=== PATIENT | female | born 1960 | race Caucasian/White ===

== ENCOUNTER 2019-04-10 12:09 | Inpatient (IN) | payer BC ==
[~2019-04-10] VITALS: Ht 170.2 cm; Wt 56.0 kg
[2019-04-10] VITALS (11 sets, daily range): BP systolic 98–175; BP diastolic 58–121
[~2019-04-10 12:09] MED LIST: ATROPINE 1 MG/10 ML DISP.SYRINGE. ONE; CALCIUM CHLORIDE 1,000 MG/10 ML VIAL IV ONE
[2019-04-10] MEDS ORDERED: IV NORMAL SALINE 1000ML BAG 1,000 ML IV SCH (12:13)
[2019-04-10] MEDS ORDERED: NOREPINEPHRINE VIAL 8 MG in IV DEXTROSE 5% 250 ML IV ONE (12:30)
[2019-04-10 12:38] LABS: CREATININE ISTAT 1.1 mg/dL (0.5-1.4); ION CA ISTAT 1.22 mmol/L (1.13-1.32); POTASSIUM ISTAT 3.4 mmol/L (3.5-5.0)
[2019-04-10] MEDS ORDERED: ATROPINE 1 MG/10 ML DISP.SYRINGE. IV ONE (12:42)
[2019-04-10 12:45] LABS: BASO % 0 % (0-3); EOS % 0 % (0-3); HEMATOCRIT 45.9 % (36.0-47.0); LYMPH # 4.4 x10^3/uL (1.0-4.8); LYMPH % 50 % (24-48); MEAN CORPUSCULAR HEMOGLOBIN 30 pg (25-35); MEAN CORPUSCULAR HGB CONC 33 g/dL (31-37); MEAN CORPUSCULAR VOLUME 92 fL (79-100); MONO # 0.2 x10^3/uL (0.0-1.1); MONO % 2 % (0-9); NEUT # 4.1 x10^3/uL (1.8-7.7); NEUT % 47 % (31-73); PLATELET COUNT 176 x10^3/uL (140-400); RED BLOOD COUNT 5.01 x10^6/uL (3.50-5.40); RED CELL DISTRIBUTION WIDTH 12.9 % (11.5-14.5); WHITE BLOOD COUNT 8.7 x10^3/uL (4.0-11.0)
[2019-04-10] MEDS ORDERED: AMIODARONE 450 MG in IV DEXTROSE 5% 250 ML IV ONE (12:45)
--- NOTE | 2019-04-10 12:52 | RAD ---
EXAM: Chest, single view. HISTORY: CODE BLUE. COMPARISON: None. FINDINGS: A frontal view of the chest is obtained. There is an endotracheal tube within the mid trachea. There is a nasogastric tube within the stomach. There is diffuse increased interstitial opacity. There is no consolidated, pleural effusion or pneumothorax. The heart is normal in size. IMPRESSION: 1. Diffuse increased interstitial opacities interstitial infiltrate. 2. Support lines and tubes in expected position. Electronically signed by: Elenita Kirkpatrick MD (04/10/2019 12:49 PM) [place] [id number]
--- NOTE | 2019-04-10 12:54 | EKG ---
[facility] [address] [place] [address] Test Date: 2019-04-10 Test Time: 12:11:15 Pat Name: EMIL ORGAN Department: Room: Gender: F Compensation And Benefits Manager: : 1960 Requested By: NORMA REVELES Order Number: [id number] Reading MD: Measurements Intervals [place] Rate: 82 P: TN: QRS: 116 QRSD: 158 T: -34 QT: 404 QTc: 475 Interpretive Statements IRREGULAR RHYTHM, NO P-WAVE FOUND ABNORMAL RIGHT AXIS DEVIATION NON SPECIFIC INTRAVENTRICULAR BLOCK RVH WITH REPOLARIZATION ABNORMALITY ABNORMAL ECG RI6.01 No previous ECG available for comparison
[2019-04-10 13:02] LABS: CALCIUM 9.4 mg/dL (8.5-10.1); CREATININE 1.2 mg/dL (0.6-1.0); GFR 45.8; POTASSIUM 3.6 mmol/L (3.5-5.1)
[2019-04-10 13:06] LABS: BASE EXCESS ABG -14 mmol/L (-3-3); HCO3 ABG 14 mmol/L (21-28); PCO2 ABG 38 mmHg (35-46); PO2 ABG 103 mmHg (65-108); SAT O2 ABG 96 % (92-99)
[2019-04-10 13:07] LABS: ALBUMIN 3.4 g/dL (3.4-5.0); MAGNESIUM 2.5 mg/dL (1.8-2.4); TOTAL BILIRUBIN 0.4 mg/dL (0.2-1.0); TOTAL PROTEIN 6.8 g/dL (6.4-8.2)
[2019-04-10 13:10] LABS: FIO2 ABG 100
--- NOTE | 2019-04-10 13:12 | PDOC2 ---
JUAN J GONZALEZ EQUIPMENT STERILIZER 04/10/19 1312: CARDIAC CONSULT DATE OF CONSULT Date of Consult DATE: 04/10/19 TIME: 12:45 REASON FOR CONSULT Reason for Consult: VT arrest REFERRING PHYSICIAN Referring Physician: Debbie SOURCE Source: Caregiver (spouse, friend), Chart review HISTORY OF PRESENT ILLNESS HISTORY OF PRESENT ILLNESS This is a a 58 yo female admitted for out of hospital arrest. Pt was in [place] with her friend this morning and was doing well. They then went to [employer] and bend over and tried to put the dog food under the cart and told her friend she felt dizzy and then became unresponsive. No falls. She then stopped breathing and a bystander started CPR then EMS came and noted she has VT. SHe wa s then given approximately 3 mg of epi and was defibrillated. Approximately 8 min to ROSC. No hx of CAD or arrhythmias and no past cardiac workup and has not seen pool lifeguard in the past. Discussed details with spouse as far as her medical history. No reports of any recent syncopal spells, no cardiac symptoms. Pt works out about 3x weekly without difficulty doing pilates, aerobic exercises. She takes 2 BP meds and 1 cholesterol pill. 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 She actually workout yesteday for the first time since 2 weeks ago. She has not worked out for about 2 weeks due to sinus infection which got better with antibiotics. PAST MEDICAL HISTORY Cardiovascular: HTN, Hyperlipidemia Pulmonary: No pertinent hx CENTRAL NERVOUS SYSTEM: Other (No pertinent history) GI: No pertinent hx Heme/Onc: No pertinent hx Hepatobiliary: No pertinent hx Psych: No pertinent hx Musculoskeletal: Osteoarthritis Rheumatologic: No pertinent hx Infectious disease: No pertinent hx ENT: Sincusitis Renal/: No pertinent hx Endocrine: No pertinent hx Dermatology: No pertinent hx PAST SURGICAL HISTORY Past Surgical History: Appendectomy, Hysterectomy FAMILY HISTORY Family History: Coronary Artery Disease (mother and father) SOCIAL HISTORY Smoke: No ALCOHOL: none Drugs: None Lives: with Family ALLERGIES ALLERGIES: Coded Allergies: No Known Drug Allergies (Unverified , 04/10/19) ROS Review of System unreliable PHYSICAL EXAM General: Other (intubated) HEENT: Atraumatic, Mucous membr. moist/pink Lungs: Other (intubated with vent) Heart: Other (RBBB, accelerated junctional) Abdomen: Soft Extremities: No cyanosis, No edema Psych/Mental Status: Other (intubated) MUSCULOSKELETAL: Osteoarthritic changes both hands LABS Lab: Laboratory Tests Test 04/10/19 12:26 04/10/19 12:31 04/10/19 12:35 Glucose (Fingerstick) 269 mg/dL (70-99) H POC Troponin I 0.37 ng/ml (<0.08) POC Hemoglobin 16.0 g/dL (12-15) H POC Hematocrit 47 % (36-40) H POC Sodium 139 mmol/L (135-145) POC Potassium 3.4 mmol/L (3.5-5.0) L POC Chloride 106 mmol/L (98-110) POC Total CO2 22 mmol/L (23-32) L Anion Gap 14 mmol/L (6-14) POC Blood Urea Nitrogen 21 mg/dL (8-26) POC Creatinine 1.1 mg/dL (0.5-1.4) Glucose Level 288 mg/dL (70-99) H POC Ionized Calcium (Kayleigh) 1.22 mmol/L (1.13-1.32) Laboratory Tests 04/10/19 12:35 ASSESSMENT/PLAN ASSESSMENT/PLAN 1. OOH VT arrest: approximately 8 min to ROSC 3 rounds of epi with defibrillation by EMS 2. Bradyarrhythmia: 30-40 episodes, QTc 475. EKG RBBB junctional otherwise ST-T changes suspicious of LM anomaly 3. Acute respiratory failure: intubated with vent 4. Syncope: due to arrhythmia 5. HLP Recommendations 1. Discussed with spouse. urgent LHC, risks and benefits discussed and agreeable to proceed. 2. Amiodarone if HR is stable. Levophed. Atropine as warranted. Epi drip if continues to be kevin 3. ASA. Heparin drip when CT head is noted. 4. Will obtain VT strips by the EMS MATTHEW SPAIN MD 04/10/19 5864: CARDIAC CONSULT ASSESSMENT/PLAN ASSESSMENT/PLAN Patient seen and examined. Agree with ROLL COATING MACHINE OPERATOR's assessment and plan. Patient with out of hospital cardiac arrest secondary to VT/VF s/p successful defibrillation by EMS Patient keeps having bradycardic episodes and is currently being transcutaneously paced as needed We will proceed with emergent cardiac catheterization and possible angioplasty Risks and benefits were explained to patient's family and they're agreeable Continue amiodarone infusion for antiarrhythmic therapy Continue vent management per pulmonary team Thank you for your consultation Critical care time spent evaluating patient and talking to family etc 40 mins JUAN J GONZALEZ APRN Apr 10, 2019 13:12 MATTHEW SPAIN MD Apr 10, 2019 17:34
[2019-04-10] MEDS ORDERED: ETOMIDATE 20 MG/10 ML VIAL. IV ONE (13:14)
[2019-04-10] MEDS ORDERED: MIDAZOLAM HCL/PF 5 MG/5 ML VIAL. IV ONE (13:15)
[2019-04-10] MEDS ORDERED: POTASSIUM CHLORIDE 20MEQ 100 ML IV ONE (13:15)
[2019-04-10] MEDS ORDERED: SUCCINYLCHOLINE 200 MG/10 ML VIAL. ONE (13:15)
[2019-04-10] MEDS ORDERED: MIDAZOLAM HCL/PF 5 MG/5 ML VIAL. ONE (13:15)
[2019-04-10] MEDS ORDERED: MIDAZOLAM HCL 50 MG in IV NORMAL SALINE 50ML 50 ML IV ONE (13:15)
[2019-04-10 13:20] LABS: PROTHROMBIN TIME PATIENT 18.8 SEC (11.7-14.0)
[2019-04-10] MEDS: IV NORMAL SALINE 1000ML BAG 1,000 ML IV SCH ×2 (13:28→20:08)
--- NOTE | 2019-04-10 13:28 | PHYS DOC ---
Past Medical History Past Medical History: Arthritis, Hyperthyroid Adult General Chief Complaint Chief Complaint: CPR/FULL ARREST HPI HPI Patient is a 58 year old female with history of hypertension and arthritis who presents to EMS with cardiorespiratory arrest. Patient friend states they did go to [employer] this morning and then went to [employer]. Patient ran to the parking lot to get her [place] and when returned inside complaining of dizziness and became unresponsive without a fall. After 5-6 minutes patient stopped bleeding and EMS was called and arrived to the scene after 2 minutes. She had ventricular tachycardia and shocked and didn't had ventricular fibrillation and shocked at another time. Patient had CPR with chest compression and insertion of LMA. Patient had dose of epinephrine and after about a week's had spontaneous pulse and breathing. According to her Review of Systems Review of Systems Unable to obtain because of unresponsiveness. Current Medications Current Medications Current Medications Medications (Trade) Dose Ordered Sig/Tank Start Time Stop Time Status Last Admin Dose Admin Norepinephrine Bitartrate 8 mg/ Dextrose 258 ml @ 13.855 mls/ hr 1X ONCE 04/10/19 12:30 04/10/19 12:31 DC 04/10/19 12:40 9.375 MLS/HR Sodium Chloride 1,000 ml @ 1,000 mls/hr Q1H 04/10/19 12:13 04/10/19 13:12 DC 04/10/19 12:20 1,000 MLS/HR Physical Exam Physical Exam Constitutional: Well nourished, unresponsive HENT: Normocephalic, atraumatic. Eyes: Fixed and dilated pupils Neck:No stridor. [] Cardiovascular: Tachycardia Lungs & Thorax: Spontaneous breathing with rhonchi and rales Abdomen: Atraumatic Skin: Clammy and diaphoretic Extremities: Peripheral pulses present ,no edema. [] Neurologic: Unresponsive Psych: Unable to evaluate Current Patient Data Vital Signs Vital Signs Date Time Temp Pulse Resp B/P (MAP) Pulse Ox O2 Delivery O2 Flow Rate FiO2 04/10/19 12:38 46 20 95/54 (68) 100 Ventilator 04/10/19 12:09 100.2 100.2 Lab Values Laboratory Tests Test 04/10/19 12:20 04/10/19 12:26 04/10/19 12:31 04/10/19 12:35 White Blood Count 8.7 x10^3/uL (4.0-11.0) Red Blood Count 5.01 x10^6/uL (3.50-5.40) Hemoglobin 15.0 g/dL (12.0-15.5) Hematocrit 45.9 % (36.0-47.0) Mean Corpuscular Volume 92 fL (79-100) Mean Corpuscular Hemoglobin 30 pg (25-35) Mean Corpuscular Hemoglobin Concent 33 g/dL (31-37) Red Cell Distribution Width 12.9 % (11.5-14.5) Platelet Count 176 x10^3/uL (140-400) Neutrophils (%) (Auto) 47 % (31-73) Lymphocytes (%) (Auto) 50 % (24-48) H Monocytes (%) (Auto) 2 % (0-9) Eosinophils (%) (Auto) 0 % (0-3) Basophils (%) (Auto) 0 % (0-3) Neutrophils # (Auto) 4.1 x10^3/uL (1.8-7.7) Lymphocytes # (Auto) 4.4 x10^3/uL (1.0-4.8) Monocytes # (Auto) 0.2 x10^3/uL (0.0-1.1) Eosinophils # (Auto) 0.0 x10^3/uL (0.0-0.7) Basophils # (Auto) 0.0 x10^3/uL (0.0-0.2) Segmented Neutrophils % 40 % (35-66) Band Neutrophils % 2 % (0-9) Lymphocytes % 54 % (24-48) H Monocytes % 3 % (0-10) Eosinophils % 1 % (0-5) Platelet Estimate Adequate (ADEQUATE) Platelet Clumps, EDTA Present Sodium Level 140 mmol/L (136-145) Potassium Level 3.6 mmol/L (3.5-5.1) Chloride Level 103 mmol/L (98-107) Carbon Dioxide Level 20 mmol/L (21-32) L Anion Gap 17 (6-14) H 14 mmol/L (6-14) Blood Urea Nitrogen 19 mg/dL (7-20) Creatinine 1.2 mg/dL (0.6-1.0) H Estimated GFR (Cockcroft-Gault) 45.8 BUN/Creatinine Ratio 16 (6-20) Glucose Level 300 mg/dL (70-99) H 288 mg/dL (70-99) H Lactic Acid Level 9.0 mmol/L (0.4-2.0) *H Calcium Level 9.4 mg/dL (8.5-10.1) Magnesium Level 2.5 mg/dL (1.8-2.4) H Total Bilirubin 0.4 mg/dL (0.2-1.0) Aspartate Amino Transferase (AST) 128 U/L (15-37) H Alanine Aminotransferase (ALT) 135 U/L (14-59) H Alkaline Phosphatase 83 U/L (46-116) Creatine Kinase 194 U/L (26-192) H Troponin I Quantitative 0.633 ng/mL (0.000-0.055) FJ-Qsq-R-Type Natriuretic Peptide 409 pg/mL (0-124) H Total Protein 6.8 g/dL (6.4-8.2) Albumin 3.4 g/dL (3.4-5.0) Albumin/Globulin Ratio 1.0 (1.0-1.7) Triglycerides Level 83 mg/dL (0-150) Cholesterol Level 168 mg/dL (0-200) LDL Cholesterol, Calculated 92 mg/dL (0-100) VLDL Cholesterol, Calculated 17 mg/dL (0-40) Non-HDL Cholesterol Calculated 109 mg/dL (0-129) HDL Cholesterol 59 mg/dL (40-60) Cholesterol/HDL Ratio 2.8 Lipase 534 U/L (73-393) H Thyroid Stimulating Hormone (TSH) 3.367 uIU/mL (0.358-3.74) Glucose (Fingerstick) 269 mg/dL (70-99) H POC Troponin I 0.37 ng/ml (<0.08) POC Hemoglobin 16.0 g/dL (12-15) H POC Hematocrit 47 % (36-40) H POC Sodium 139 mmol/L (135-145) POC Potassium 3.4 mmol/L (3.5-5.0) L POC Chloride 106 mmol/L (98-110) POC Total CO2 22 mmol/L (23-32) L POC Blood Urea Nitrogen 21 mg/dL (8-26) POC Creatinine 1.1 mg/dL (0.5-1.4) POC Ionized Calcium (Kayleigh) 1.22 mmol/L (1.13-1.32) Laboratory Tests 04/10/19 12:20 Laboratory Tests 04/10/19 12:20 04/10/19 12:35 EKG EKG EKG interpreted by me. EKG at 12 elevate showed irregular rhythm at rate of 82, normal P-wave phoned, abnormal right axis deviation, nonspecific intraventricular block, LVH with repolarization abnormality, diffuse inverted T and 30 ER and inferior dates, no acute ST elevation. EKG at 1246 showed irregular rhythm at rate of 59, no P-wave phoned, left axis deviation, left anterior fascicular block, nonspecific intraventricular block, diffuse with repolarization, elevated T wave in anteroseptal leads, no acute ST elevation. Radiology/Procedures Radiology/Procedures [][address] [address] IMAGING REPORT Signed PATIENT: EMIL TENA ACCOUNT: [id number] : 1960 LOCATION: ER AGE: 58 SEX: F EXAM STATUS: REG ER ORD. PHYSICIAN: NORMA REVELES MD REASON: post code blue PROCEDURE: PORTABLE CHEST 1V EXAM: Chest, single view. HISTORY: CODE BLUE. COMPARISON: None. FINDINGS: A frontal view of the chest is obtained. There is an endotracheal tube within the mid trachea. There is a nasogastric tube within the stomach. There is diffuse increased interstitial opacity. There is no consolidated, pleural effusion or pneumothorax. The heart is normal in size. IMPRESSION: 1. Diffuse increased interstitial opacities interstitial infiltrate. 2. Support lines and tubes in expected position. Electronically signed by: Elenita Ashford MD (04/10/2019 12:49 PM) [facility] DICTATED and SIGNED BY: ELENITA ASHFORD MD DATE: 04/10/19 [address] [place] [id number] [place] [address] IMAGING REPORT Signed PATIENT: EMIL TENA ACCOUNT: [id number] : 1960 LOCATION: [address] [place] [address] AGE: 58 SEX: F EXAM STATUS: ADM IN ORD. PHYSICIAN: NORMA REVELES MD REASON: post code blue, PT BEING PACED, MOTION PROCEDURE: CT HEAD WO CONTRAST CT scan of the head without contrast 04/10/2019 Clinical History: Post cardiac arrest. Technique: Unenhanced, contiguous, 5 mm axial sections were obtained through the head. One or more of the following individualized dose reduction techniques were utilized for this study: 1. Automated exposure control. 2. Adjustment of the mA and/or kV according to patient size. 3. Use of iterative reconstruction technique. Findings: No previous imaging studies are available for comparison. Some of the images are degraded by patient motion. The ventricles and sulci are within normal limits in size and configuration. No acute parenchymal abnormality is seen. No extra-axial fluid collection is noted. No skull fracture is seen. Impression: No acute intracranial abnormality is seen. Electronically signed by: Rose Mary Zepeda MD (04/10/2019 1:34 PM) [facility] DICTATED and SIGNED BY: ROSE MARY ZEPEDA MD DATE: 04/10/19 1336 Course & Med Decision Making Course & Med Decision Making Pertinent Labs and Imaging studies reviewed. (See chart for details) Dilution of patient in ER showed 58-year-old female patient brought in by EMS after code blue with spontaneous pulse and respiration with GCS-3 with unresponsive condition. Patient was intubated at 1225. Cardiology was consulted at 1211. Patient had blood pressure of 80s over 40s and IV fluids and Levophed and amiodarone was started. Patient had unremarkable CT head. Chest x-ray showed infiltration and lactic acid was 9.0 and antibiotic was started. Cardiology team took the patient to the Candy Maker Helper.Patient requiring admission for further evaluation and treatment. Discussed with Dr. De Souza who is in agreement with admission. Discussed findings and plan with patient and family, who acknowledge understanding and agreement. Dragon Disclaimer Dragon Disclaimer This electronic medical record was generated, in whole or in part, using a voice recognition dictation system. Departure Departure Impression: Primary Impression: Cardiorespiratory arrest Additional Impressions: Sepsis Severe sepsis Elevated d-dimer Hyperglycemia Acute respiratory acidosis Pneumonia Hypokalemia Elevated troponin NSTEMI (non-ST elevated myocardial infarction) Disposition: 09 ADMITTED INPATIENT (at 1327) Admitting Physician: BHAVANA (Dr. De Souza accepted admission at 1326) Condition: CRITICAL Referrals: ALEXANDER OSBORNE MD (PCP) Critical Care Time Critical care time was 90 minutes exclusive of procedures. Date and Time of Reassessment Date: Apr 10, 2019 Time: 14:00 Fluid Challenge Is the fluid challenge complet: Yes IBW Target Volume Used: Yes BMI > 30: No Vital Signs Vital Signs: Vital Signs Date Time Temp Pulse Resp B/P (MAP) Pulse Ox O2 Delivery O2 Flow Rate FiO2 04/10/19 12:38 46 20 95/54 (68) 100 Ventilator 04/10/19 12:09 100.2 100.2 Temperature Source: Rectal Respirations Respiratory Pattern: Irregular Cardiovascular Pulse Rhythm: Irregular Heart: Nml S1, S2, no murmurs Capillary Refil Capillary Refill: Rt Hand < 3 seconds Peripheral Pulse Pulse Location: Radial Pulse Strength: Normal (2+) Pulse Assessment Method: NIBP Integumentary Skin: Diaphoretic Skin Moisture: Clammy Intubation Procedure Intubation Procedure Intub Indication: Respiratory failure Consent: Unable to give consent due to emergent nature. Medications Used: see nursing note Procedure: The patient was placed in the appropriate position. Intubation was performed direct visualization of cord [id number] with 7.5 endotracheal tube with x 1 try. T tube was secured with device. Initial confirmation of placement included bilateral breath sounds, tube fogging, adequate chest rise, adequate pulse oximetry reading. A chest x-ray to verify correct placement of the tube showed appropriate tube position. The patient tolerated the procedure well. Complications: none. Problem Qualifiers Additional Impressions: Sepsis Sepsis type: sepsis due to unspecified organism Sepsis acute organ dysfunction status: unspecified Qualified Codes: A41.9 - Sepsis, unspecified organism Pneumonia Pneumonia type: due to unspecified organism Laterality: left Lung location: unspecified part of lung Qualified Codes: J18.9 - Pneumonia, unspecified organism NORMA REVELES MD Apr 10, 2019 13:28
[2019-04-10] MEDS ORDERED: SODIUM BICARB ADULT 8.4% 50 MEQ/50 ML DISP.SYRIN. IV ONE (13:30)
[2019-04-10 13:31] LABS: CHOLESTEROL/HDL RATIO 2.8
[2019-04-10 13:34] LABS: % BANDS 2 % (0-9); % EOS 1 % (0-5); % LYMPHS 54 % (24-48); % MONOS 3 % (0-10); % SEGS 40 % (35-66); PLATELET CLUMP PRESENT; PLT ESTIMATE ADEQUATE (ADEQUATE)
--- NOTE | 2019-04-10 13:37 | RAD ---
CT scan of the head without contrast 04/10/2019 Clinical History: Post cardiac arrest. Technique: Unenhanced, contiguous, 5 mm axial sections were obtained through the head. One or more of the following individualized dose reduction techniques were utilized for this study: 1. Automated exposure control. 2. Adjustment of the mA and/or kV according to patient size. 3. Use of iterative reconstruction technique. Findings: No previous imaging studies are available for comparison. Some of the images are degraded by patient motion. The ventricles and sulci are within normal limits in size and configuration. No acute parenchymal abnormality is seen. No extra-axial fluid collection is noted. No skull fracture is seen. Impression: No acute intracranial abnormality is seen. Electronically signed by: Issa Zepeda MD (04/10/2019 1:34 PM) [facility]
[2019-04-10] MEDS ORDERED: IV NORMAL SALINE 1000ML BAG 1,000 ML IV ONE (13:45)
[2019-04-10] MEDS ORDERED: PIPERACILLIN/TAZOBACTAM 3.375 GM in IV NORMAL SALINE 50ML 50 ML IV ONE (13:45)
[2019-04-10] MEDS ORDERED: VANCOMYCIN 1GM IVPB FOR OMNI 250 ML IV ONE (13:45)
[2019-04-10 13:55] LABS: D-DIMER > 20.00 ug/mlFEU (0.00-0.50)
[2019-04-10] MEDS: POTASSIUM CHLORIDE 10MEQ 100 ML IV SCH ×2 (14:00→15:00)
[2019-04-10] MEDS ORDERED: VANCOMYCIN 1.75 GM in IV NORMAL SALINE 500ML BAG 500 ML IV ONE (14:00)
[2019-04-10] MEDS ORDERED: IODIXANOL 320 MG/ML 100 ML VIAL. ONE (14:01)
[2019-04-10] MEDS ORDERED: LIDOCAINE 1% PF 2 ML VIAL. ONE (14:02)
[2019-04-10] MEDS ORDERED: LIDOCAINE 1% Multi-Dose 20 ML VIAL. ONE (14:03)
--- NOTE | 2019-04-10 14:08 | EKG ---
[facility] [address] [place] [address] Test Date: 2019-04-10 Test Time: 12:45:20 Pat Name: EMIL ORGAN Department: Room: 106 1 Gender: F Circulator: : 1960 Requested By: MADDI QUINTEROS Order Number: [id number] Reading MD: Measurements Intervals [place] Rate: 59 P: NE: QRS: -60 QRSD: 134 T: 79 QT: 498 QTc: 498 Interpretive Statements IRREGULAR RHYTHM, NO P-WAVE FOUND ABNORMAL LEFT AXIS DEVIATION LEFT ANTERIOR FASCICULAR BLOCK NON SPECIFIC INTRAVENTRICULAR BLOCK RVH WITH REPOLARIZATION ABNORMALITY QRS(T) CONTOUR ABNORMALITY CONSISTENT WITH ANTEROSEPTAL INFARCT AGE UNDETERMINED ABNORMAL ECG RI6.01 No previous ECG available for comparison
[2019-04-10 14:39] LABS: INFLUENZA A PATIENT NEGATIVE (NEGATIVE); INFLUENZA B PATIENT NEGATIVE (NEGATIVE)
[2019-04-10] MEDS ORDERED: ATROPINE 1 MG/10 ML DISP.SYRINGE. ONE (15:16)
[2019-04-10] MEDS ORDERED: HEPARIN for IV BOLUS 10,000 UNIT/10 ML VIAL. ONE (15:16)
[2019-04-10] MEDS ORDERED: IODIXANOL 320 MG/ML 100 ML VIAL. IART ONE (15:30)
[2019-04-10] MEDS ORDERED: HEPARIN for IV BOLUS 10,000 UNIT/10 ML VIAL. IV ONE (15:30)
[2019-04-10] MEDS ORDERED: LIDOCAINE 1% Multi-Dose 20 ML VIAL. INJ ONE (15:30)
[2019-04-10] MEDS ORDERED: VECURONIUM BOLUS 10 MG VIAL. IV ONE (16:54)
[2019-04-10] MEDS ORDERED: fentaNYL PF VIAL 100 MCG/2 ML VIAL ONE (16:55)
[2019-04-10] MEDS ORDERED: fentaNYL PF VIAL 100 MCG/2 ML VIAL IV ONE (17:00)
[2019-04-10] MEDS ORDERED: MIDAZOLAM HCL/PF 2 MG/2 ML VIAL. IV ONE (17:00)
[2019-04-10] MEDS ORDERED: POLYVINYL ALCOHOL 1.4% OPHTH SOLUTION 15ML BOTTLE. OU PRN (17:00)
--- NOTE | 2019-04-10 17:10 | CARD ---
MR#: [id number] Date of Study: 04/10/2019 Ordering Physician: MATTHEW TERAN, Referring Physician: MATTHEW TERAN, Tech: RT Rosalba (Popeye) [place] APPROVED REPORT Technologist: RT Rosalba (R) [place] Nurse: Christi Yadav R.N. Procedure(s) performed: 1. Left heart catheterization, selective coronary angiography and left ventr iculography 2. Instant wave free ratio (IFR) measurement to right coronary artery stenosis contrast 104 Visipaque flouro time 4.8 minutes dose 24.6 Gycm2 no sedation INDICATION The indication(s) include : Sudden cardiac arrest arrest secondary to ventricular tachycardia. CS Clinical Frailty Scale [facility] Clinical Frailty Scale: Moderately Frail Heart Failure Heart Failure: No PROCEDURE NARRATIVE After explaining the risks, benefits and alternative options, informed consent was obtained from jessica ent's family since she was intubated. Patient was brought to the cardiac Thermal Cutting Tracer Machine Operator and her right groin was prepped and draped in the usual fashion. 20 mL of 2% lidocaine was infiltrated into the skin and subcutaneous tissues for local anesthesia. Arterial access was obtained in the right common femoral artery and a 6 [place] sheath was inserted. Since patient needed temporary transcutaneous pacing in e emergency room, a 5 [place] venous sheath was inserted in the right common femoral vein for potentia l transvenous pacemaker insertion if she became bradycardic. 6 [place] JL4 and 6 [place] JR4 catheters were used to perform selective angiography of the left and right coronary arteries. 6 [place] pigtail catheter was used to perform left ventriculography. Since she was found to have angiographically bord lobo significant stenosis involving her right coronary artery, a decision was made to perform physi ologic assessment using Instant wave free ratio (IFR) measurement. 6 [place] JR4 guide was used to en joey the right coronary artery. The stenosis in the midsegment was crossed with [place] Verrata Pres sureWire and IFR measurement was made that was insignificant at 1.0. Hence no interventions were perf ormed. Patient tolerated the procedure well. Hemostasis in the right groin was achieved using mynx cl osure device and manual compression. There were no immediate complications. FINDINGS 1. Hemodynamics: Left ventricular end-diastolic pressure 5 mmHg. No pullback gradient across the ao rtic valve. 2. Left ventriculography: Normal left ventricle systolic function with ejection fraction estimated at 55%. No significant mitral regurgitation seen. 3. Coronary angiography: a. The left main coronary artery arose from the left sinus of Valsalva, gave rise to the left anteri or descending and left circumflex arteries and did not show any significant stenosis. b. The left anterior descending artery showed 30% stenosis in the midsegment. The diagonal branch sh owed 50% stenosis in the proximal segment. c. The left circumflex artery did not show any significant stenosis. d. The right coronary artery was a large and dominant vessel arising from the right sinus of Valsalv a that showed 50% stenosis in the midsegment. This was physiologically insignificant based on IFR celine surement of 1.0. Conclusion 1. Nonobstructive coronary artery disease. 50% stenosis involving dominant right coronary artery mary carmen t was physiologically not significant based on IFR measurement. The diagonal branch which is a small to medium caliber vessel also showed 50% proximal segment stenosis. 2. Normal left ventricle systolic function with ejection fraction estimated at 55%. Recommendations Consider AICD implantation for secondary prevention of sudden cardiac if workup for pulmonary e mbolism as negative Signed by : Matthew Teran, Electronically Approved : 04/10/2019 17:09:16
[2019-04-10] MEDS: ACETAMINOPHEN 650 MG/20.3 ML SOLUTION. NG SCH ×2 (17:19→22:03)
[2019-04-10] MEDS: busPIRone 10 MG TABLET. NG SCH ×2 (17:19→21:58)
[2019-04-10] MEDS ORDERED: HEPARIN 25,000UTS/250ML PREMIX 250 ML IV PRN ×2 (17:30→23:45)
[2019-04-10] MEDS ORDERED: HEPARIN for IV BOLUS 10,000 UNIT/10 ML VIAL. IV PRN ×3 (17:30→23:45)
--- NOTE | 2019-04-10 17:31 | PDOC ---
PULMONARY PROGRESS NOTES Vitals Vital Signs Date Time Temp Pulse Resp B/P (MAP) Pulse Ox O2 Delivery O2 Flow Rate FiO2 04/10/19 17:16 20 100 Ventilator 04/10/19 13:59 56 116/58 (77) 04/10/19 12:09 100.2 100.2 Labs Laboratory Tests Test 04/10/19 12:20 04/10/19 12:26 04/10/19 12:31 04/10/19 12:35 White Blood Count 8.7 x10^3/uL (4.0-11.0) Red Blood Count 5.01 x10^6/uL (3.50-5.40) Hemoglobin 15.0 g/dL (12.0-15.5) Hematocrit 45.9 % (36.0-47.0) Mean Corpuscular Volume 92 fL (79-100) Mean Corpuscular Hemoglobin 30 pg (25-35) Mean Corpuscular Hemoglobin Concent 33 g/dL (31-37) Red Cell Distribution Width 12.9 % (11.5-14.5) Platelet Count 176 x10^3/uL (140-400) Neutrophils (%) (Auto) 47 % (31-73) Lymphocytes (%) (Auto) 50 % (24-48) Monocytes (%) (Auto) 2 % (0-9) Eosinophils (%) (Auto) 0 % (0-3) Basophils (%) (Auto) 0 % (0-3) Neutrophils # (Auto) 4.1 x10^3/uL (1.8-7.7) Lymphocytes # (Auto) 4.4 x10^3/uL (1.0-4.8) Monocytes # (Auto) 0.2 x10^3/uL (0.0-1.1) Eosinophils # (Auto) 0.0 x10^3/uL (0.0-0.7) Basophils # (Auto) 0.0 x10^3/uL (0.0-0.2) Segmented Neutrophils % 40 % (35-66) Band Neutrophils % 2 % (0-9) Lymphocytes % 54 % (24-48) Monocytes % 3 % (0-10) Eosinophils % 1 % (0-5) Platelet Estimate Adequate (ADEQUATE) Platelet Clumps, EDTA Present Sodium Level 140 mmol/L (136-145) Potassium Level 3.6 mmol/L (3.5-5.1) Chloride Level 103 mmol/L (98-107) Carbon Dioxide Level 20 mmol/L (21-32) Anion Gap 17 (6-14) 14 mmol/L (6-14) Blood Urea Nitrogen 19 mg/dL (7-20) Creatinine 1.2 mg/dL (0.6-1.0) Estimated GFR (Cockcroft-Gault) 45.8 BUN/Creatinine Ratio 16 (6-20) Glucose Level 300 mg/dL (70-99) 288 mg/dL (70-99) Lactic Acid Level 9.0 mmol/L (0.4-2.0) Calcium Level 9.4 mg/dL (8.5-10.1) Magnesium Level 2.5 mg/dL (1.8-2.4) Total Bilirubin 0.4 mg/dL (0.2-1.0) Aspartate Amino Transf (AST/SGOT) 128 U/L (15-37) Alanine Aminotransferase (ALT/SGPT) 135 U/L (14-59) Alkaline Phosphatase 83 U/L (46-116) Creatine Kinase 194 U/L (26-192) Troponin I Quantitative 0.633 ng/mL (0.000-0.055) XL-Kpn-X-Type Natriuretic Peptide 409 pg/mL (0-124) Total Protein 6.8 g/dL (6.4-8.2) Albumin 3.4 g/dL (3.4-5.0) Albumin/Globulin Ratio 1.0 (1.0-1.7) Triglycerides Level 83 mg/dL (0-150) Cholesterol Level 168 mg/dL (0-200) LDL Cholesterol, Calculated 92 mg/dL (0-100) VLDL Cholesterol, Calculated 17 mg/dL (0-40) Non-HDL Cholesterol Calculated 109 mg/dL (0-129) HDL Cholesterol 59 mg/dL (40-60) Cholesterol/HDL Ratio 2.8 Lipase 534 U/L (73-393) Thyroid Stimulating Hormone (TSH) 3.367 uIU/mL (0.358-3.74) Glucose (Fingerstick) 269 mg/dL (70-99) Bedside Troponin I 0.37 ng/ml (<0.08) Bedside Hemoglobin 16.0 g/dL (12-15) Bedside Hematocrit 47 % (36-40) Bedside Sodium 139 mmol/L (135-145) Bedside Potassium 3.4 mmol/L (3.5-5.0) Bedside Chloride 106 mmol/L (98-110) Bedside Total CO2 22 mmol/L (23-32) Bedside Blood Urea Nitrogen 21 mg/dL (8-26) Bedside Creatinine 1.1 mg/dL (0.5-1.4) Bedside Ionized Calcium (Kayleigh) 1.22 mmol/L (1.13-1.32) Test 04/10/19 12:57 04/10/19 12:59 04/10/19 13:40 04/10/19 16:05 Prothrombin Time 18.8 SEC (11.7-14.0) Prothromb Time International Ratio 1.6 (0.8-1.1) D-Dimer (Annabelle) > 20.00 ug/mlFEU O2 Saturation 96 % (92-99) Arterial Blood pH 7.18 (7.35-7.45) Arterial Blood pCO2 at Patient Temp 38 mmHg (35-46) Arterial Blood pO2 at Patient Temp 103 mmHg (65-108) Arterial Blood HCO3 14 mmol/L (21-28) Arterial Blood Base Excess -14 mmol/L (-3-3) FiO2 100 Influenza Type A Antigen Negative (NEGATIVE) Influenza Type B Antigen Negative (NEGATIVE) Lactic Acid Level 3.9 mmol/L (0.4-2.0) Laboratory Tests Test 04/10/19 12:20 04/10/19 12:26 04/10/19 12:31 04/10/19 12:35 White Blood Count 8.7 x10^3/uL (4.0-11.0) Red Blood Count 5.01 x10^6/uL (3.50-5.40) Hemoglobin 15.0 g/dL (12.0-15.5) Hematocrit 45.9 % (36.0-47.0) Mean Corpuscular Volume 92 fL (79-100) Mean Corpuscular Hemoglobin 30 pg (25-35) Mean Corpuscular Hemoglobin Concent 33 g/dL (31-37) Red Cell Distribution Width 12.9 % (11.5-14.5) Platelet Count 176 x10^3/uL (140-400) Neutrophils (%) (Auto) 47 % (31-73) Lymphocytes (%) (Auto) 50 % (24-48) Monocytes (%) (Auto) 2 % (0-9) Eosinophils (%) (Auto) 0 % (0-3) Basophils (%) (Auto) 0 % (0-3) Neutrophils # (Auto) 4.1 x10^3/uL (1.8-7.7) Lymphocytes # (Auto) 4.4 x10^3/uL (1.0-4.8) Monocytes # (Auto) 0.2 x10^3/uL (0.0-1.1) Eosinophils # (Auto) 0.0 x10^3/uL (0.0-0.7) Basophils # (Auto) 0.0 x10^3/uL (0.0-0.2) Segmented Neutrophils % 40 % (35-66) Band Neutrophils % 2 % (0-9) Lymphocytes % 54 % (24-48) Monocytes % 3 % (0-10) Eosinophils % 1 % (0-5) Platelet Estimate Adequate (ADEQUATE) Platelet Clumps, EDTA Present Sodium Level 140 mmol/L (136-145) Potassium Level 3.6 mmol/L (3.5-5.1) Chloride Level 103 mmol/L (98-107) Carbon Dioxide Level 20 mmol/L (21-32) Anion Gap 17 (6-14) 14 mmol/L (6-14) Blood Urea Nitrogen 19 mg/dL (7-20) Creatinine 1.2 mg/dL (0.6-1.0) Estimated GFR (Cockcroft-Gault) 45.8 BUN/Creatinine Ratio 16 (6-20) Glucose Level 300 mg/dL (70-99) 288 mg/dL (70-99) Lactic Acid Level 9.0 mmol/L (0.4-2.0) Calcium Level 9.4 mg/dL (8.5-10.1) Magnesium Level 2.5 mg/dL (1.8-2.4) Total Bilirubin 0.4 mg/dL (0.2-1.0) Aspartate Amino Transf (AST/SGOT) 128 U/L (15-37) Alanine Aminotransferase (ALT/SGPT) 135 U/L (14-59) Alkaline Phosphatase 83 U/L (46-116) Creatine Kinase 194 U/L (26-192) Troponin I Quantitative 0.633 ng/mL (0.000-0.055) UA-Dsp-Y-Type Natriuretic Peptide 409 pg/mL (0-124) Total Protein 6.8 g/dL (6.4-8.2) Albumin 3.4 g/dL (3.4-5.0) Albumin/Globulin Ratio 1.0 (1.0-1.7) Triglycerides Level 83 mg/dL (0-150) Cholesterol Level 168 mg/dL (0-200) LDL Cholesterol, Calculated 92 mg/dL (0-100) VLDL Cholesterol, Calculated 17 mg/dL (0-40) Non-HDL Cholesterol Calculated 109 mg/dL (0-129) HDL Cholesterol 59 mg/dL (40-60) Cholesterol/HDL Ratio 2.8 Lipase 534 U/L (73-393) Thyroid Stimulating Hormone (TSH) 3.367 uIU/mL (0.358-3.74) Glucose (Fingerstick) 269 mg/dL (70-99) Bedside Troponin I 0.37 ng/ml (<0.08) Bedside Hemoglobin 16.0 g/dL (12-15) Bedside Hematocrit 47 % (36-40) Bedside Sodium 139 mmol/L (135-145) Bedside Potassium 3.4 mmol/L (3.5-5.0) Bedside Chloride 106 mmol/L (98-110) Bedside Total CO2 22 mmol/L (23-32) Bedside Blood Urea Nitrogen 21 mg/dL (8-26) Bedside Creatinine 1.1 mg/dL (0.5-1.4) Bedside Ionized Calcium (Kayleigh) 1.22 mmol/L (1.13-1.32) Test 04/10/19 12:57 04/10/19 12:59 04/10/19 13:40 04/10/19 16:05 Prothrombin Time 18.8 SEC (11.7-14.0) Prothromb Time International Ratio 1.6 (0.8-1.1) D-Dimer (Annabelle) > 20.00 ug/mlFEU O2 Saturation 96 % (92-99) Arterial Blood pH 7.18 (7.35-7.45) Arterial Blood pCO2 at Patient Temp 38 mmHg (35-46) Arterial Blood pO2 at Patient Temp 103 mmHg (65-108) Arterial Blood HCO3 14 mmol/L (21-28) Arterial Blood Base Excess -14 mmol/L (-3-3) FiO2 100 Influenza Type A Antigen Negative (NEGATIVE) Influenza Type B Antigen Negative (NEGATIVE) Lactic Acid Level 3.9 mmol/L (0.4-2.0) Impression . OUT OF HOSPITAL ARREST WILL PROCEED TO RULE OUT PE CHECK AND CTA OF NECK FINDINGS 1. Hemodynamics: Left ventricular end-diastolic pressure 5 mmHg. No pullback gradient across the aortic valve. 2. Left ventriculography: Normal left ventricle systolic function with ejecti on fraction estimated at 55%. No significant mitral regurgitation seen. 3. Coronary angiography: a. The left main coronary artery arose from the left sinus of Valsalva, gave rise to the left anterior descending and left circumflex arteries and did not sh ow any significant stenosis. b. The left anterior descending artery showed 30% stenosis in the midsegment. The diagonal branch showed 50% stenosis in the proximal segment. c. The left circumflex artery did not show any significant stenosis. d. The right coronary artery was a large and dominant vessel arising from the right sinus of Valsalva that showed 50% stenosis in the midsegment. This was physiologically insignificant based on IFR measurement of 1.0. Conclusion 1. Nonobstructive coronary artery disease. 50% stenosis involving dominant right coronary artery that was physiologically not significant based on IFR measurement. The diagonal branch which is a small to medium caliber vessel also showed 50% proximal segment stenosis. 2. Normal left ventricle systolic function with ejection fraction estimated at 55%. Recommendations Consider AICD implantation for secondary prevention of sudden cardiac if workup for pulmonary embolism as negative IAIN AUGUSTINE MD Apr 10, 2019 17:31
[2019-04-10 17:54] LABS: BASE EXCESS ABG -3 mmol/L (-3-3); HCO3 ABG 22 mmol/L (21-28); PCO2 ABG 39 mmHg (35-46); PO2 ABG 329 mmHg (65-108); SAT O2 ABG 99 % (92-99)
[2019-04-10 17:56] LABS: FIO2 ABG 100
[2019-04-10] MEDS ORDERED: hydrALAZINE 20 MG/ML VIAL. ONE (17:56)
[2019-04-10] MEDS ORDERED: hydrALAZINE 20 MG/ML VIAL. IVP PRN (18:00)
[2019-04-10] MEDS: POLYVINYL ALCOHOL 1.4% OPHTH SOLUTION 15ML BOTTLE. OU SCH (18:00)
[2019-04-10] MEDS ORDERED: MAGNESIUM SULFATE 1GM 100 ML IV ONE (18:00)
[2019-04-10] MEDS: PANTOPRAZOLE IV PUSH 40 MG VIAL. IVP SCH (18:06)
[2019-04-10] MEDS ORDERED: IOHEXOL 350 MG/ML 100 ML VIAL. IV ONE (18:45)
[2019-04-10] MEDS: INSULIN REGULAR VIAL 100 UNIT in IV NORMAL SALINE 100ML 100 ML IV PRN ×2 (19:45→22:45)
[2019-04-10 20:04] LABS: CALCIUM 7.9 mg/dL (8.5-10.1); CREATININE 0.9 mg/dL (0.6-1.0); GFR 63.9; POTASSIUM 3.1 mmol/L (3.5-5.1)
[2019-04-10 20:05] LABS: PROTHROMBIN TIME PATIENT 17.9 SEC (11.7-14.0)
--- NOTE | 2019-04-10 20:08 | NUR ---
Post code patient admitted to unit at 1615. Hypothermia protocol initiated, target temp reached at 1815. Hold heparin drip until CTA results per Dr Ziegler. Family at bedside. See flow sheet for further orders.
[2019-04-10 20:09] LABS: MAGNESIUM 2.8 mg/dL (1.8-2.4); PHOSPHORUS 3.7 mg/dL (2.6-4.7)
[2019-04-10] MEDS ORDERED: MAGNESIUM SULFATE 1GM 100 ML IV PRN ×2 (20:30→22:00)
[2019-04-10] MEDS ORDERED: HEPARIN for SUB-Q USE 5,000 UNIT/ML VIAL. SQ SCH (21:00)
[2019-04-10] MEDS: VECURONIUM BOLUS 10 MG VIAL. IV PRN (21:19)
--- NOTE | 2019-04-10 21:59 | RAD ---
Exam: CT of chest with contrast INDICATION: Cardiac arrest TECHNIQUE: Sequential axial images through the chest obtained following the administration of 100 mL of Omni 350 IV contrast. Sagittal and coronal reformatted images were reconstructed from the axial data and reviewed. 3-D reformatted images were reconstructed from the axial data and reviewed. Comparisons: None FINDINGS: Visualized portions of the thyroid are unremarkable. No enlarged mediastinal lymph nodes are identified. Heart size is normal. No pericardial effusion. Thoracic aorta has a normal course and caliber. Bony artery is not enlarged. No pulmonary embolus identified within the main, lobar or segmental pulmonary arteries. Airways are patent. Layering consolidative changes are noted in the lungs bilaterally greater on the right. There is intralobular septal thickening noted greatest at the upper lungs. No suspicious lung nodules. No pleural effusion or thickening. Visualized upper abdomen is unremarkable. No suspicious osseous lesions or acute fractures. IMPRESSION: 1. No pulmonary embolus identified within the main, lobar or segmental pulmonary arteries. 2. Layering consolidative changes in the lungs bilaterally greater on the left favored to represent pulmonary edema. Superimposed infectious process is difficult to exclude. Exposure: One or more of the following in the visualized dose reduction techniques were utilized for this examination: 1. Automated exposure control 2. Adjustment of the MA and/or KV according to patient size 3. Use of iterative of reconstructive technique Electronically signed by: Lise Newby MD (04/10/2019 9:57 PM) [facility]
[2019-04-10] MEDS ORDERED: POTASSIUM CHLORIDE 10MEQ 100 ML IV PRN (22:00)
--- NOTE | 2019-04-10 22:15 | HP ---
ADMIT DATE: 04/10/2019 CHIEF COMPLAINT: Cardiac arrest. HISTORY OF PRESENT ILLNESS: The patient is a pleasant 58-year-old female who was at the [employer] earlier today. Then, she went to the [employer]. She was doing okay there, went to the parking lot then came back and felt dizzy. She then collapsed. A bystander started CPR. They called EMS. When EMS arrived, they did start cardiac arrest protocol including 2 rounds of epinephrine, several defibrillations. She was able to be revived, but when she got to the ER, she was very sick. She was breathing, but unconscious. They were concerned about airway protection. They went ahead and intubated her. She then went emergently to the [facility]. She did have very mild disease with 50% lesions, but no stents had to be placed. She has now been transferred to the ICU, where I examined her in room 106 with her [id number]. The patient is on the vent, on a Levophed drip and sedated with propofol and fentanyl. I reviewed the entire chart with her [id number] and her son is on his way here as well. PAST MEDICAL HISTORY: From the record, it appears hypertension, hyperlipidemia, sinusitis and she was recently treated for that. ALLERGIES: None. FAMILY HISTORY: Coronary artery disease. SOCIAL HISTORY: She does not drink, smoke or take drugs. 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 MEDICATIONS: Reviewed. She has been recently treated for sinusitis. Please refer to the [facility]. She is currently on amiodarone drip, fentanyl drip, propofol drip, Levophed drip. REVIEW OF SYSTEMS: Unable to obtain, the patient is sedated and on hypothermia protocol. PHYSICAL EXAMINATION: VITAL SIGNS: Temperature is currently at 89, we are trying to get back up to 91, pulse 45, respirations 20, blood pressure down to 99/70. GENERAL: She is sedated with propofol and fentanyl. HEENT: Normal cephalic atraumatic, external auditory canals are patent. EYES: Extraocular muscles are intact, pupils are equally round and reactive to light and accommodation. MUSCULOSKELETAL: Well developed, well nourished, good range of motion. ENDOCRINE: No thyromegaly was palpated. LYMPHATICS: No cervical chain or axillary nodes were noted. HEMATOPOIETIC: No bruising. NECK: Supple, no JVD, no thyromegaly was noted. LUNGS: Diminished. HEART: Distant S1, S2. ABDOMEN: Soft, nontender. Positive bowel sounds no organomegaly, normal bowel sounds. EXTREMITIES: Cool. NEUROLOGIC: She is sedated and unconscious at this time. PSYCHIATRIC: Unconscious at this time. SKIN: No ulcerations or rashes, good skin turgor, no jaundice. VASCULAR: Good capillary refill, neurovascular bundle appears to be intact. LABORATORY DATA: Troponin is slightly high at 0.3, but she did undergo several defibrillations and she had some compression, so I suspect that is all related to that. White count is 8, hemoglobin 15, platelets 176. Electrolytes: Sodium 139, potassium 3.4, chloride 106, bicarbonate 22, BUN 19, creatinine is 1.2, glucose 230. Chest x-ray, I reviewed personally by my eye, I really do not see any abnormalities. Radiologist felt like there might be a slight pneumonia, but she has a nice, within normal limits cardiac silhouette. The osseous structures appear normal. I reviewed the CT of the head as well myself; by my eye, I do not see any acute strokes, but we will await further Radiology reports. ASSESSMENT AND PLAN: Cardiac arrest with resuscitation in a middle-aged female who had a cardiac cath that did not show coronary artery disease. We are concerned she has arrhythmias from electrical problem of the heart. Cardiology is considering permanent pacemaker. For now, we need to wean her off of the hypothermia protocol, hope to wean off the Levophed. We have Pulmonary consult as well. They are trying to wean off the vent in the next few days. Currently, she is on assist control with 50% oxygen and satting 95%. This is a critically ill patient. PROGNOSIS: Guarded. MADDI QUINTEROS DO DR: JULIOCESAR/eliane JOB#: [id number] / [id number] ALEXANDER Matos MD
[2019-04-10] MEDS: PROPOFOL 100 ML IV PRN ×2 (22:29→22:36)
[2019-04-10] MEDS: NOREPINEPHRINE VIAL 8 MG in IV DEXTROSE 5% 250 ML IV PRN (22:43)
[2019-04-10 23:07] LABS: HEMOGLOBIN A1C 5.7 % (4.8-5.6)
[2019-04-11] VITALS (29 sets, daily range): BP systolic 76–138; BP diastolic 36–64
[2019-04-11] MEDS: POLYVINYL ALCOHOL 1.4% OPHTH SOLUTION 15ML BOTTLE. OU SCH ×4 (00:27→17:41)
[2019-04-11] MEDS: ACETAMINOPHEN 650 MG/20.3 ML SOLUTION. NG SCH ×6 (00:45→21:12)
[2019-04-11] MEDS ORDERED: IV DEXTROSE 5 %-0.45 % NACL 1,000 ML IV SCH (01:00)
[2019-04-11 01:35] LABS: CALCIUM 8.2 mg/dL (8.5-10.1); GFR 56.6; MAGNESIUM 3.4 mg/dL (1.8-2.4); PHOSPHORUS 2.8 mg/dL (2.6-4.7); PROTHROMBIN TIME PATIENT 16.6 SEC (11.7-14.0)
[2019-04-11 01:38] LABS: POTASSIUM 2.9 mmol/L (3.5-5.1)
[2019-04-11] MEDS ORDERED: POTASSIUM CHLORIDE 20MEQ 100 ML IV PRN (02:00)
[2019-04-11] MEDS ORDERED: POTASSIUM CHLORIDE 10MEQ 100 ML IV PRN ×2 (02:00→06:45)
[2019-04-11] MEDS: POTASSIUM CHLORIDE 10MEQ 100 ML IV PRN ×3 (02:08→06:50)
[2019-04-11] MEDS: AMIODARONE 450 MG in IV DEXTROSE 5% 250 ML IV PRN ×2 (03:42→19:36)
--- NOTE | 2019-04-11 04:55 | CONS ---
DATE OF CONSULTATION: 04/10/2019 ATTENDING PHYSICIAN: Dr. Hawk De Souza. REASON FOR CONSULTATION: The patient seen in pulmonary consultation at the request of Dr. Teran for vent management, [id number] cardiac arrest. HISTORY OF PRESENT ILLNESS: The patient is a 58-year-old admitted with an [id number] cardiac arrest. According to the over the last week or so, she has had some flu-like symptoms and upper respiratory tract infection. She earlier today was at a [employer] and then went to [facility] [employer] with a friend. She tried to bend down to place some dog food under the cart and felt dizzy and became unresponsive. She has stopped breathing. A bystander started CPR and then EMS was summoned. She was noted to have V-tach. We do not have the rhythm strips available at this time. She was given 3 rounds of epinephrine, was defibrillated. She had approximately 8 minutes of resuscitation prior to return of spontaneous circulation. The patient does not have any history of coronary artery disease or arrhythmias. No previous cardiac workup. She has never smoked. There is no history of DVT or pulmonary embolism. There is no recent trauma to the lower extremities. No recent travel. Apparently, she is very active and does Pilates 3 times a week. She does have high blood pressure, takes two blood pressure medication and one cholesterol pill. 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 There is no history of tobacco use or polysubstance use. PAST MEDICAL HISTORY: Hypertension, hyperlipidemia, osteoarthritis, sinusitis, recent acute bronchitis. PAST SURGICAL HISTORY: No recent surgeries. ALLERGIES: No known drug allergies. REVIEW OF SYSTEMS: As indicated in the history of present illness. SOCIAL HISTORY: She does not smoke. FAMILY HISTORY: Positive for early coronary events in both the mother and the father. PHYSICAL EXAMINATION: GENERAL: The patient was undergoing a hypothermic protocol. VITAL SIGNS: She had a T-max of 100.2 initially. Her blood pressure was initially low. She was given some IV fluids. She is now hypertensive. HEENT: Eyes, the sclerae were nonicteric. NECK: Jugular venous distention could not be assessed. CHEST: Full expansion. LUNGS: Adequate airway flow with no wheezes. CARDIOVASCULAR: Regular rate and rhythm with S1, S2, no S3. ABDOMEN: Soft. EXTREMITIES: No clubbing, cyanosis or edema. LABORATORY DATA: Serology was negative. Electrolytes were noted. Potassium was low. Troponin was initially elevated. BNP was elevated. Lactic acid was elevated. White count was normal. Hemoglobin and hematocrit were noted. Arterial blood gas initially pH of 7.18, PaCO2 of 38, PaO2 of 103, repeat pH of 7.36, PaCO2 of 39, pO2 of 328. Chest x-ray revealed bilateral infiltrates compatible with pulmonary edema. CT head revealed no acute intracranial process. IMPRESSION: 1. Awr-ks-vbtlbacf cardiopulmonary arrest, etiology unclear. 2. Status post emergent cardiac catheterization revealing normal ejection fraction, nonobstructive coronary artery disease, 50% stenosis involving the dominant right coronary artery. Normal left ventricular ejection fraction estimated at 55%. 3. Hypertension. 4. Recent acute bronchitis. PLAN: 1. We will continue support with mechanical ventilation. 2. Hypothermic protocol. 3. Rule out possibility of pulmonary embolism. CT angiogram of the chest and neck, rule out possibility of aortic dissection. 4. The above was discussed with Dr. Teran and the who is at the bedside. I am hopeful that the patient will be extubated once she undergoes hypothermic protocol and awakens. IAIN AUGUSTINE MD DR: ADRIANNE/eliane JOB#: [id number] / [id number]
[2019-04-11] MEDS: busPIRone 10 MG TABLET. NG SCH ×3 (05:20→21:13)
[2019-04-11 05:43] LABS: BASO % 0 % (0-3); EOS % 0 % (0-3); HEMATOCRIT 39.7 % (36.0-47.0); LYMPH # 1.1 x10^3/uL (1.0-4.8); LYMPH % 6 % (24-48); MEAN CORPUSCULAR HEMOGLOBIN 29 pg (25-35); MEAN CORPUSCULAR HGB CONC 33 g/dL (31-37); MEAN CORPUSCULAR VOLUME 89 fL (79-100); MONO # 0.7 x10^3/uL (0.0-1.1); MONO % 4 % (0-9); NEUT # 16.6 x10^3/uL (1.8-7.7); NEUT % 90 % (31-73); PLATELET COUNT 186 x10^3/uL (140-400); RED BLOOD COUNT 4.46 x10^6/uL (3.50-5.40); WHITE BLOOD COUNT 18.4 x10^3/uL (4.0-11.0)
[2019-04-11 06:03] LABS: CALCIUM 7.9 mg/dL (8.5-10.1); CREATININE 0.9 mg/dL (0.6-1.0); GFR 63.9; MAGNESIUM 2.8 mg/dL (1.8-2.4); PHOSPHORUS 3.5 mg/dL (2.6-4.7); POTASSIUM 3.1 mmol/L (3.5-5.1)
[2019-04-11 06:12] LABS: PROTHROMBIN TIME PATIENT 16.2 SEC (11.7-14.0)
[2019-04-11] MEDS ORDERED: MAGNESIUM SULFATE 1GM 100 ML IV PRN (06:45)
[2019-04-11 07:28] LABS: BASE EXCESS ABG -12 mmol/L (-3-3); CORRECTED PCO2 ABG 36 mmHg; CORRECTED PH ABG 7.25; CORRECTED PO2 ABG 108 mmHg; HCO3 ABG 16 mmol/L (21-28); PCO2 ABG 45 mmHg (35-46); PO2 ABG 136 mmHg (65-108); SAT O2 ABG 98 % (92-99)
[2019-04-11] MEDS ORDERED: VERA240C2 PO (07:37)
[2019-04-11] MEDS ORDERED: CELE100C PO (07:38)
[2019-04-11] MEDS: PANTOPRAZOLE IV PUSH 40 MG VIAL. IVP SCH (08:32)
--- NOTE | 2019-04-11 09:24 | PDOC ---
PROGRESS NOTES Chief Complaint Chief Complaint Status post cardiac arrest Status post cardiac cath with no flow limiting lesions evident Arrhythmia History of essential hypertension History of dyslipidemia bracycardia most likely due to amiodarone Leukocytosis reactive most likely but will cover with ATB for possible aspiration pneumonia Plan: supportive measures hypothermia protocol ATB monitor bradycardia and adjust meds as per it support consultant. History of Present Illness History of Present Illness Patient status post cardiac arrest undergoing hypothermia protocol. Sedated and intubated. no acute events reported overnight. Vitals Vitals Vital Signs Date Time Temp Pulse Resp B/P (MAP) Pulse Ox O2 Delivery O2 Flow Rate FiO2 04/11/19 08:59 100 Ventilator 04/11/19 07:00 89.6 04/11/19 07:00 38 14 Physical Exam General: Other (intubated) Heart: Regular rate, Normal S1, Normal S2, Other (bradycardia) Lungs: Clear Abdomen: Soft Extremities: No cyanosis, No edema Skin: No rashes, No significant lesion Labs LABS Laboratory Tests Test 04/10/19 12:20 04/10/19 12:26 04/10/19 12:31 04/10/19 12:35 White Blood Count 8.7 x10^3/uL (4.0-11.0) Red Blood Count 5.01 x10^6/uL (3.50-5.40) Hemoglobin 15.0 g/dL (12.0-15.5) Hematocrit 45.9 % (36.0-47.0) Mean Corpuscular Volume 92 fL (79-100) Mean Corpuscular Hemoglobin 30 pg (25-35) Mean Corpuscular Hemoglobin Concent 33 g/dL (31-37) Red Cell Distribution Width 12.9 % (11.5-14.5) Platelet Count 176 x10^3/uL (140-400) Neutrophils (%) (Auto) 47 % (31-73) Lymphocytes (%) (Auto) 50 % (24-48) Monocytes (%) (Auto) 2 % (0-9) Eosinophils (%) (Auto) 0 % (0-3) Basophils (%) (Auto) 0 % (0-3) Neutrophils # (Auto) 4.1 x10^3/uL (1.8-7.7) Lymphocytes # (Auto) 4.4 x10^3/uL (1.0-4.8) Monocytes # (Auto) 0.2 x10^3/uL (0.0-1.1) Eosinophils # (Auto) 0.0 x10^3/uL (0.0-0.7) Basophils # (Auto) 0.0 x10^3/uL (0.0-0.2) Segmented Neutrophils % 40 % (35-66) Band Neutrophils % 2 % (0-9) Lymphocytes % 54 % (24-48) Monocytes % 3 % (0-10) Eosinophils % 1 % (0-5) Platelet Estimate Adequate (ADEQUATE) Platelet Clumps, EDTA Present Sodium Level 140 mmol/L (136-145) Potassium Level 3.6 mmol/L (3.5-5.1) Chloride Level 103 mmol/L (98-107) Carbon Dioxide Level 20 mmol/L (21-32) Anion Gap 17 (6-14) 14 mmol/L (6-14) Blood Urea Nitrogen 19 mg/dL (7-20) Creatinine 1.2 mg/dL (0.6-1.0) Estimated GFR (Cockcroft-Gault) 45.8 BUN/Creatinine Ratio 16 (6-20) Glucose Level 300 mg/dL (70-99) 288 mg/dL (70-99) Hemoglobin A1c 5.7 % (4.8-5.6) Lactic Acid Level 9.0 mmol/L (0.4-2.0) Calcium Level 9.4 mg/dL (8.5-10.1) Magnesium Level 2.5 mg/dL (1.8-2.4) Total Bilirubin 0.4 mg/dL (0.2-1.0) Aspartate Amino Transf (AST/SGOT) 128 U/L (15-37) Alanine Aminotransferase (ALT/SGPT) 135 U/L (14-59) Alkaline Phosphatase 83 U/L (46-116) Creatine Kinase 194 U/L (26-192) Troponin I Quantitative 0.633 ng/mL (0.000-0.055) FN-Mht-C-Type Natriuretic Peptide 409 pg/mL (0-124) Total Protein 6.8 g/dL (6.4-8.2) Albumin 3.4 g/dL (3.4-5.0) Albumin/Globulin Ratio 1.0 (1.0-1.7) Triglycerides Level 83 mg/dL (0-150) Cholesterol Level 168 mg/dL (0-200) LDL Cholesterol, Calculated 92 mg/dL (0-100) VLDL Cholesterol, Calculated 17 mg/dL (0-40) Non-HDL Cholesterol Calculated 109 mg/dL (0-129) HDL Cholesterol 59 mg/dL (40-60) Cholesterol/HDL Ratio 2.8 Lipase 534 U/L (73-393) Thyroid Stimulating Hormone (TSH) 3.367 uIU/mL (0.358-3.74) Glucose (Fingerstick) 269 mg/dL (70-99) Bedside Troponin I 0.37 ng/ml (<0.08) Bedside Hemoglobin 16.0 g/dL (12-15) Bedside Hematocrit 47 % (36-40) Bedside Sodium 139 mmol/L (135-145) Bedside Potassium 3.4 mmol/L (3.5-5.0) Bedside Chloride 106 mmol/L (98-110) Bedside Total CO2 22 mmol/L (23-32) Bedside Blood Urea Nitrogen 21 mg/dL (8-26) Bedside Creatinine 1.1 mg/dL (0.5-1.4) Bedside Ionized Calcium (Kayleigh) 1.22 mmol/L (1.13-1.32) Test 04/10/19 12:57 04/10/19 12:59 04/10/19 13:40 04/10/19 16:05 Prothrombin Time 18.8 SEC (11.7-14.0) Prothromb Time International Ratio 1.6 (0.8-1.1) D-Dimer (Annabelle) > 20.00 ug/mlFEU O2 Saturation 96 % (92-99) Arterial Blood pH 7.18 (7.35-7.45) Arterial Blood pCO2 at Patient Temp 38 mmHg (35-46) Arterial Blood pO2 at Patient Temp 103 mmHg (65-108) Arterial Blood HCO3 14 mmol/L (21-28) Arterial Blood Base Excess -14 mmol/L (-3-3) FiO2 100 Influenza Type A Antigen Negative (NEGATIVE) Influenza Type B Antigen Negative (NEGATIVE) Lactic Acid Level 3.9 mmol/L (0.4-2.0) Test 04/10/19 17:40 04/10/19 18:47 04/10/19 19:23 04/10/19 21:26 O2 Saturation 99 % (92-99) Arterial Blood pH 7.37 (7.35-7.45) Arterial Blood pCO2 at Patient Temp 39 mmHg (35-46) Arterial Blood pO2 at Patient Temp 329 mmHg (65-108) Arterial Blood HCO3 22 mmol/L (21-28) Arterial Blood Base Excess -3 mmol/L (-3-3) FiO2 100 Glucose (Fingerstick) 230 mg/dL (70-99) 208 mg/dL (70-99) Prothrombin Time 17.9 SEC (11.7-14.0) Prothromb Time International Ratio 1.5 (0.8-1.1) Activated Partial Thromboplast Time 53 SEC (24-38) Sodium Level 140 mmol/L (136-145) Potassium Level 3.1 mmol/L (3.5-5.1) Chloride Level 108 mmol/L (98-107) Carbon Dioxide Level 21 mmol/L (21-32) Anion Gap 11 (6-14) Blood Urea Nitrogen 28 mg/dL (7-20) Creatinine 0.9 mg/dL (0.6-1.0) Estimated GFR (Cockcroft-Gault) 63.9 Glucose Level 261 mg/dL (70-99) Calcium Level 7.9 mg/dL (8.5-10.1) Ionized Calcium 1.15 mmol/L (1.13-1.32) Phosphorus Level 3.7 mg/dL (2.6-4.7) Magnesium Level 2.8 mg/dL (1.8-2.4) Test 04/10/19 22:14 04/10/19 23:25 04/11/19 00:23 04/11/19 01:10 Glucose (Fingerstick) 202 mg/dL (70-99) 127 mg/dL (70-99) 134 mg/dL (70-99) Prothrombin Time 16.6 SEC (11.7-14.0) Prothromb Time International Ratio 1.4 (0.8-1.1) Activated Partial Thromboplast Time 41 SEC (24-38) Sodium Level 139 mmol/L (136-145) Potassium Level 2.9 mmol/L (3.5-5.1) Chloride Level 108 mmol/L (98-107) Carbon Dioxide Level 19 mmol/L (21-32) Anion Gap 12 (6-14) Blood Urea Nitrogen 30 mg/dL (7-20) Creatinine 1.0 mg/dL (0.6-1.0) Estimated GFR (Cockcroft-Gault) 56.6 Glucose Level 118 mg/dL (70-99) Calcium Level 8.2 mg/dL (8.5-10.1) Ionized Calcium 1.21 mmol/L (1.13-1.32) Phosphorus Level 2.8 mg/dL (2.6-4.7) Magnesium Level 3.4 mg/dL (1.8-2.4) Test 04/11/19 01:15 04/11/19 02:11 04/11/19 03:07 04/11/19 05:20 Glucose (Fingerstick) 100 mg/dL (70-99) 110 mg/dL (70-99) 119 mg/dL (70-99) White Blood Count 18.4 x10^3/uL (4.0-11.0) Red Blood Count 4.46 x10^6/uL (3.50-5.40) Hemoglobin 13.0 g/dL (12.0-15.5) Hematocrit 39.7 % (36.0-47.0) Mean Corpuscular Volume 89 fL (79-100) Mean Corpuscular Hemoglobin 29 pg (25-35) Mean Corpuscular Hemoglobin Concent 33 g/dL (31-37) Red Cell Distribution Width 13.0 % (11.5-14.5) Platelet Count 186 x10^3/uL (140-400) Neutrophils (%) (Auto) 90 % (31-73) Lymphocytes (%) (Auto) 6 % (24-48) Monocytes (%) (Auto) 4 % (0-9) Eosinophils (%) (Auto) 0 % (0-3) Basophils (%) (Auto) 0 % (0-3) Neutrophils # (Auto) 16.6 x10^3/uL (1.8-7.7) Lymphocytes # (Auto) 1.1 x10^3/uL (1.0-4.8) Monocytes # (Auto) 0.7 x10^3/uL (0.0-1.1) Eosinophils # (Auto) 0.0 x10^3/uL (0.0-0.7) Basophils # (Auto) 0.0 x10^3/uL (0.0-0.2) Prothrombin Time 16.2 SEC (11.7-14.0) Prothromb Time International Ratio 1.3 (0.8-1.1) Activated Partial Thromboplast Time 47 SEC (24-38) Heparin Anti-Xa Act, Unfractionated 0.87 IU/mL (0.30-0.70) Sodium Level 138 mmol/L (136-145) Potassium Level 3.1 mmol/L (3.5-5.1) Chloride Level 108 mmol/L (98-107) Carbon Dioxide Level 18 mmol/L (21-32) Anion Gap 12 (6-14) Blood Urea Nitrogen 32 mg/dL (7-20) Creatinine 0.9 mg/dL (0.6-1.0) Estimated GFR (Cockcroft-Gault) 63.9 Glucose Level 180 mg/dL (70-99) Calcium Level 7.9 mg/dL (8.5-10.1) Ionized Calcium 1.20 mmol/L (1.13-1.32) Phosphorus Level 3.5 mg/dL (2.6-4.7) Magnesium Level 2.8 mg/dL (1.8-2.4) Test 04/11/19 05:25 04/11/19 07:50 04/11/19 08:19 Glucose (Fingerstick) 157 mg/dL (70-99) 202 mg/dL (70-99) O2 Saturation 98 % (92-99) Arterial Blood pH 7.18 (7.35-7.45) Arterial Blood pH (Temp corrected) 7.25 Arterial Blood pCO2 at Patient Temp 45 mmHg (35-46) Arterial Blood pCO2 (Temp correct) 36 mmHg Arterial Blood pO2 at Patient Temp 136 mmHg (65-108) Arterial Blood pO2 (Temp corrected) 108 mmHg Arterial Blood HCO3 16 mmol/L (21-28) Arterial Blood Base Excess -12 mmol/L (-3-3) Review of Systems Review of Systems unable to obtain Assessment and Plan Assessmemt and Plan Problems Medical Problems: (1) Acute respiratory acidosis Status: Acute (2) Cardiorespiratory arrest Status: Acute (3) Elevated d-dimer Status: Acute (4) Elevated troponin Status: Acute (5) Hyperglycemia Status: Acute (6) Hypokalemia Status: Acute (7) NSTEMI (non-ST elevated myocardial infarction) Status: Acute (8) Pneumonia Status: Acute (9) Sepsis Status: Acute (10) Severe sepsis Status: Acute Comment Review of Relevant I have reviewed the following items fracisco (where applicable) has been applied. Labs Laboratory Tests Test 04/10/19 12:20 04/10/19 12:26 04/10/19 12:31 04/10/19 12:35 White Blood Count 8.7 x10^3/uL (4.0-11.0) Red Blood Count 5.01 x10^6/uL (3.50-5.40) Hemoglobin 15.0 g/dL (12.0-15.5) Hematocrit 45.9 % (36.0-47.0) Mean Corpuscular Volume 92 fL (79-100) Mean Corpuscular Hemoglobin 30 pg (25-35) Mean Corpuscular Hemoglobin Concent 33 g/dL (31-37) Red Cell Distribution Width 12.9 % (11.5-14.5) Platelet Count 176 x10^3/uL (140-400) Neutrophils (%) (Auto) 47 % (31-73) Lymphocytes (%) (Auto) 50 % (24-48) Monocytes (%) (Auto) 2 % (0-9) Eosinophils (%) (Auto) 0 % (0-3) Basophils (%) (Auto) 0 % (0-3) Neutrophils # (Auto) 4.1 x10^3/uL (1.8-7.7) Lymphocytes # (Auto) 4.4 x10^3/uL (1.0-4.8) Monocytes # (Auto) 0.2 x10^3/uL (0.0-1.1) Eosinophils # (Auto) 0.0 x10^3/uL (0.0-0.7) Basophils # (Auto) 0.0 x10^3/uL (0.0-0.2) Segmented Neutrophils % 40 % (35-66) Band Neutrophils % 2 % (0-9) Lymphocytes % 54 % (24-48) Monocytes % 3 % (0-10) Eosinophils % 1 % (0-5) Platelet Estimate Adequate (ADEQUATE) Platelet Clumps, EDTA Present Sodium Level 140 mmol/L (136-145) Potassium Level 3.6 mmol/L (3.5-5.1) Chloride Level 103 mmol/L (98-107) Carbon Dioxide Level 20 mmol/L (21-32) Anion Gap 17 (6-14) 14 mmol/L (6-14) Blood Urea Nitrogen 19 mg/dL (7-20) Creatinine 1.2 mg/dL (0.6-1.0) Estimated GFR (Cockcroft-Gault) 45.8 BUN/Creatinine Ratio 16 (6-20) Glucose Level 300 mg/dL (70-99) 288 mg/dL (70-99) Hemoglobin A1c 5.7 % (4.8-5.6) Lactic Acid Level 9.0 mmol/L (0.4-2.0) Calcium Level 9.4 mg/dL (8.5-10.1) Magnesium Level 2.5 mg/dL (1.8-2.4) Total Bilirubin 0.4 mg/dL (0.2-1.0) Aspartate Amino Transf (AST/SGOT) 128 U/L (15-37) Alanine Aminotransferase (ALT/SGPT) 135 U/L (14-59) Alkaline Phosphatase 83 U/L (46-116) Creatine Kinase 194 U/L (26-192) Troponin I Quantitative 0.633 ng/mL (0.000-0.055) AU-Iay-B-Type Natriuretic Peptide 409 pg/mL (0-124) Total Protein 6.8 g/dL (6.4-8.2) Albumin 3.4 g/dL (3.4-5.0) Albumin/Globulin Ratio 1.0 (1.0-1.7) Triglycerides Level 83 mg/dL (0-150) Cholesterol Level 168 mg/dL (0-200) LDL Cholesterol, Calculated 92 mg/dL (0-100) VLDL Cholesterol, Calculated 17 mg/dL (0-40) Non-HDL Cholesterol Calculated 109 mg/dL (0-129) HDL Cholesterol 59 mg/dL (40-60) Cholesterol/HDL Ratio 2.8 Lipase 534 U/L (73-393) Thyroid Stimulating Hormone (TSH) 3.367 uIU/mL (0.358-3.74) Glucose (Fingerstick) 269 mg/dL (70-99) Bedside Troponin I 0.37 ng/ml (<0.08) Bedside Hemoglobin 16.0 g/dL (12-15) Bedside Hematocrit 47 % (36-40) Bedside Sodium 139 mmol/L (135-145) Bedside Potassium 3.4 mmol/L (3.5-5.0) Bedside Chloride 106 mmol/L (98-110) Bedside Total CO2 22 mmol/L (23-32) Bedside Blood Urea Nitrogen 21 mg/dL (8-26) Bedside Creatinine 1.1 mg/dL (0.5-1.4) Bedside Ionized Calcium (Kayleigh) 1.22 mmol/L (1.13-1.32) Test 04/10/19 12:57 04/10/19 12:59 04/10/19 13:40 04/10/19 16:05 Prothrombin Time 18.8 SEC (11.7-14.0) Prothromb Time International Ratio 1.6 (0.8-1.1) D-Dimer (Annabelle) > 20.00 ug/mlFEU O2 Saturation 96 % (92-99) Arterial Blood pH 7.18 (7.35-7.45) Arterial Blood pCO2 at Patient Temp 38 mmHg (35-46) Arterial Blood pO2 at Patient Temp 103 mmHg (65-108) Arterial Blood HCO3 14 mmol/L (21-28) Arterial Blood Base Excess -14 mmol/L (-3-3) FiO2 100 Influenza Type A Antigen Negative (NEGATIVE) Influenza Type B Antigen Negative (NEGATIVE) Lactic Acid Level 3.9 mmol/L (0.4-2.0) Test 04/10/19 17:40 04/10/19 18:47 04/10/19 19:23 04/10/19 21:26 O2 Saturation 99 % (92-99) Arterial Blood pH 7.37 (7.35-7.45) Arterial Blood pCO2 at Patient Temp 39 mmHg (35-46) Arterial Blood pO2 at Patient Temp 329 mmHg (65-108) Arterial Blood HCO3 22 mmol/L (21-28) Arterial Blood Base Excess -3 mmol/L (-3-3) FiO2 100 Glucose (Fingerstick) 230 mg/dL (70-99) 208 mg/dL (70-99) Prothrombin Time 17.9 SEC (11.7-14.0) Prothromb Time International Ratio 1.5 (0.8-1.1) Activated Partial Thromboplast Time 53 SEC (24-38) Sodium Level 140 mmol/L (136-145) Potassium Level 3.1 mmol/L (3.5-5.1) Chloride Level 108 mmol/L (98-107) Carbon Dioxide Level 21 mmol/L (21-32) Anion Gap 11 (6-14) Blood Urea Nitrogen 28 mg/dL (7-20) Creatinine 0.9 mg/dL (0.6-1.0) Estimated GFR (Cockcroft-Gault) 63.9 Glucose Level 261 mg/dL (70-99) Calcium Level 7.9 mg/dL (8.5-10.1) Ionized Calcium 1.15 mmol/L (1.13-1.32) Phosphorus Level 3.7 mg/dL (2.6-4.7) Magnesium Level 2.8 mg/dL (1.8-2.4) Test 04/10/19 22:14 04/10/19 23:25 04/11/19 00:23 04/11/19 01:10 Glucose (Fingerstick) 202 mg/dL (70-99) 127 mg/dL (70-99) 134 mg/dL (70-99) Prothrombin Time 16.6 SEC (11.7-14.0) Prothromb Time International Ratio 1.4 (0.8-1.1) Activated Partial Thromboplast Time 41 SEC (24-38) Sodium Level 139 mmol/L (136-145) Potassium Level 2.9 mmol/L (3.5-5.1) Chloride Level 108 mmol/L (98-107) Carbon Dioxide Level 19 mmol/L (21-32) Anion Gap 12 (6-14) Blood Urea Nitrogen 30 mg/dL (7-20) Creatinine 1.0 mg/dL (0.6-1.0) Estimated GFR (Cockcroft-Gault) 56.6 Glucose Level 118 mg/dL (70-99) Calcium Level 8.2 mg/dL (8.5-10.1) Ionized Calcium 1.21 mmol/L (1.13-1.32) Phosphorus Level 2.8 mg/dL (2.6-4.7) Magnesium Level 3.4 mg/dL (1.8-2.4) Test 04/11/19 01:15 04/11/19 02:11 04/11/19 03:07 04/11/19 05:20 Glucose (Fingerstick) 100 mg/dL (70-99) 110 mg/dL (70-99) 119 mg/dL (70-99) White Blood Count 18.4 x10^3/uL (4.0-11.0) Red Blood Count 4.46 x10^6/uL (3.50-5.40) Hemoglobin 13.0 g/dL (12.0-15.5) Hematocrit 39.7 % (36.0-47.0) Mean Corpuscular Volume 89 fL (79-100) Mean Corpuscular Hemoglobin 29 pg (25-35) Mean Corpuscular Hemoglobin Concent 33 g/dL (31-37) Red Cell Distribution Width 13.0 % (11.5-14.5) Platelet Count 186 x10^3/uL (140-400) Neutrophils (%) (Auto) 90 % (31-73) Lymphocytes (%) (Auto) 6 % (24-48) Monocytes (%) (Auto) 4 % (0-9) Eosinophils (%) (Auto) 0 % (0-3) Basophils (%) (Auto) 0 % (0-3) Neutrophils # (Auto) 16.6 x10^3/uL (1.8-7.7) Lymphocytes # (Auto) 1.1 x10^3/uL (1.0-4.8) Monocytes # (Auto) 0.7 x10^3/uL (0.0-1.1) Eosinophils # (Auto) 0.0 x10^3/uL (0.0-0.7) Basophils # (Auto) 0.0 x10^3/uL (0.0-0.2) Prothrombin Time 16.2 SEC (11.7-14.0) Prothromb Time International Ratio 1.3 (0.8-1.1) Activated Partial Thromboplast Time 47 SEC (24-38) Heparin Anti-Xa Act, Unfractionated 0.87 IU/mL (0.30-0.70) Sodium Level 138 mmol/L (136-145) Potassium Level 3.1 mmol/L (3.5-5.1) Chloride Level 108 mmol/L (98-107) Carbon Dioxide Level 18 mmol/L (21-32) Anion Gap 12 (6-14) Blood Urea Nitrogen 32 mg/dL (7-20) Creatinine 0.9 mg/dL (0.6-1.0) Estimated GFR (Cockcroft-Gault) 63.9 Glucose Level 180 mg/dL (70-99) Calcium Level 7.9 mg/dL (8.5-10.1) Ionized Calcium 1.20 mmol/L (1.13-1.32) Phosphorus Level 3.5 mg/dL (2.6-4.7) Magnesium Level 2.8 mg/dL (1.8-2.4) Test 04/11/19 05:25 04/11/19 07:50 04/11/19 08:19 Glucose (Fingerstick) 157 mg/dL (70-99) 202 mg/dL (70-99) O2 Saturation 98 % (92-99) Arterial Blood pH 7.18 (7.35-7.45) Arterial Blood pH (Temp corrected) 7.25 Arterial Blood pCO2 at Patient Temp 45 mmHg (35-46) Arterial Blood pCO2 (Temp correct) 36 mmHg Arterial Blood pO2 at Patient Temp 136 mmHg (65-108) Arterial Blood pO2 (Temp corrected) 108 mmHg Arterial Blood HCO3 16 mmol/L (21-28) Arterial Blood Base Excess -12 mmol/L (-3-3) Laboratory Tests Test 04/10/19 12:20 04/10/19 12:26 04/10/19 12:31 04/10/19 12:35 White Blood Count 8.7 x10^3/uL (4.0-11.0) Red Blood Count 5.01 x10^6/uL (3.50-5.40) Hemoglobin 15.0 g/dL (12.0-15.5) Hematocrit 45.9 % (36.0-47.0) Mean Corpuscular Volume 92 fL (79-100) Mean Corpuscular Hemoglobin 30 pg (25-35) Mean Corpuscular Hemoglobin Concent 33 g/dL (31-37) Red Cell Distribution Width 12.9 % (11.5-14.5) Platelet Count 176 x10^3/uL (140-400) Neutrophils (%) (Auto) 47 % (31-73) Lymphocytes (%) (Auto) 50 % (24-48) Monocytes (%) (Auto) 2 % (0-9) Eosinophils (%) (Auto) 0 % (0-3) Basophils (%) (Auto) 0 % (0-3) Neutrophils # (Auto) 4.1 x10^3/uL (1.8-7.7) Lymphocytes # (Auto) 4.4 x10^3/uL (1.0-4.8) Monocytes # (Auto) 0.2 x10^3/uL (0.0-1.1) Eosinophils # (Auto) 0.0 x10^3/uL (0.0-0.7) Basophils # (Auto) 0.0 x10^3/uL (0.0-0.2) Segmented Neutrophils % 40 % (35-66) Band Neutrophils % 2 % (0-9) Lymphocytes % 54 % (24-48) Monocytes % 3 % (0-10) Eosinophils % 1 % (0-5) Platelet Estimate Adequate (ADEQUATE) Platelet Clumps, EDTA Present Sodium Level 140 mmol/L (136-145) Potassium Level 3.6 mmol/L (3.5-5.1) Chloride Level 103 mmol/L (98-107) Carbon Dioxide Level 20 mmol/L (21-32) Anion Gap 17 (6-14) 14 mmol/L (6-14) Blood Urea Nitrogen 19 mg/dL (7-20) Creatinine 1.2 mg/dL (0.6-1.0) Estimated GFR (Cockcroft-Gault) 45.8 BUN/Creatinine Ratio 16 (6-20) Glucose Level 300 mg/dL (70-99) 288 mg/dL (70-99) Hemoglobin A1c 5.7 % (4.8-5.6) Lactic Acid Level 9.0 mmol/L (0.4-2.0) Calcium Level 9.4 mg/dL (8.5-10.1) Magnesium Level 2.5 mg/dL (1.8-2.4) Total Bilirubin 0.4 mg/dL (0.2-1.0) Aspartate Amino Transf (AST/SGOT) 128 U/L (15-37) Alanine Aminotransferase (ALT/SGPT) 135 U/L (14-59) Alkaline Phosphatase 83 U/L (46-116) Creatine Kinase 194 U/L (26-192) Troponin I Quantitative 0.633 ng/mL (0.000-0.055) RW-Snx-Q-Type Natriuretic Peptide 409 pg/mL (0-124) Total Protein 6.8 g/dL (6.4-8.2) Albumin 3.4 g/dL (3.4-5.0) Albumin/Globulin Ratio 1.0 (1.0-1.7) Triglycerides Level 83 mg/dL (0-150) Cholesterol Level 168 mg/dL (0-200) LDL Cholesterol, Calculated 92 mg/dL (0-100) VLDL Cholesterol, Calculated 17 mg/dL (0-40) Non-HDL Cholesterol Calculated 109 mg/dL (0-129) HDL Cholesterol 59 mg/dL (40-60) Cholesterol/HDL Ratio 2.8 Lipase 534 U/L (73-393) Thyroid Stimulating Hormone (TSH) 3.367 uIU/mL (0.358-3.74) Glucose (Fingerstick) 269 mg/dL (70-99) Bedside Troponin I 0.37 ng/ml (<0.08) Bedside Hemoglobin 16.0 g/dL (12-15) Bedside Hematocrit 47 % (36-40) Bedside Sodium 139 mmol/L (135-145) Bedside Potassium 3.4 mmol/L (3.5-5.0) Bedside Chloride 106 mmol/L (98-110) Bedside Total CO2 22 mmol/L (23-32) Bedside Blood Urea Nitrogen 21 mg/dL (8-26) Bedside Creatinine 1.1 mg/dL (0.5-1.4) Bedside Ionized Calcium (Kayleigh) 1.22 mmol/L (1.13-1.32) Test 04/10/19 12:57 04/10/19 12:59 04/10/19 13:40 04/10/19 16:05 Prothrombin Time 18.8 SEC (11.7-14.0) Prothromb Time International Ratio 1.6 (0.8-1.1) D-Dimer (Annabelle) > 20.00 ug/mlFEU O2 Saturation 96 % (92-99) Arterial Blood pH 7.18 (7.35-7.45) Arterial Blood pCO2 at Patient Temp 38 mmHg (35-46) Arterial Blood pO2 at Patient Temp 103 mmHg (65-108) Arterial Blood HCO3 14 mmol/L (21-28) Arterial Blood Base Excess -14 mmol/L (-3-3) FiO2 100 Influenza Type A Antigen Negative (NEGATIVE) Influenza Type B Antigen Negative (NEGATIVE) Lactic Acid Level 3.9 mmol/L (0.4-2.0) Test 04/10/19 17:40 04/10/19 18:47 04/10/19 19:23 04/10/19 21:26 O2 Saturation 99 % (92-99) Arterial Blood pH 7.37 (7.35-7.45) Arterial Blood pCO2 at Patient Temp 39 mmHg (35-46) Arterial Blood pO2 at Patient Temp 329 mmHg (65-108) Arterial Blood HCO3 22 mmol/L (21-28) Arterial Blood Base Excess -3 mmol/L (-3-3) FiO2 100 Glucose (Fingerstick) 230 mg/dL (70-99) 208 mg/dL (70-99) Prothrombin Time 17.9 SEC (11.7-14.0) Prothromb Time International Ratio 1.5 (0.8-1.1) Activated Partial Thromboplast Time 53 SEC (24-38) Sodium Level 140 mmol/L (136-145) Potassium Level 3.1 mmol/L (3.5-5.1) Chloride Level 108 mmol/L (98-107) Carbon Dioxide Level 21 mmol/L (21-32) Anion Gap 11 (6-14) Blood Urea Nitrogen 28 mg/dL (7-20) Creatinine 0.9 mg/dL (0.6-1.0) Estimated GFR (Cockcroft-Gault) 63.9 Glucose Level 261 mg/dL (70-99) Calcium Level 7.9 mg/dL (8.5-10.1) Ionized Calcium 1.15 mmol/L (1.13-1.32) Phosphorus Level 3.7 mg/dL (2.6-4.7) Magnesium Level 2.8 mg/dL (1.8-2.4) Test 04/10/19 22:14 04/10/19 23:25 04/11/19 00:23 04/11/19 01:10 Glucose (Fingerstick) 202 mg/dL (70-99) 127 mg/dL (70-99) 134 mg/dL (70-99) Prothrombin Time 16.6 SEC (11.7-14.0) Prothromb Time International Ratio 1.4 (0.8-1.1) Activated Partial Thromboplast Time 41 SEC (24-38) Sodium Level 139 mmol/L (136-145) Potassium Level 2.9 mmol/L (3.5-5.1) Chloride Level 108 mmol/L (98-107) Carbon Dioxide Level 19 mmol/L (21-32) Anion Gap 12 (6-14) Blood Urea Nitrogen 30 mg/dL (7-20) Creatinine 1.0 mg/dL (0.6-1.0) Estimated GFR (Cockcroft-Gault) 56.6 Glucose Level 118 mg/dL (70-99) Calcium Level 8.2 mg/dL (8.5-10.1) Ionized Calcium 1.21 mmol/L (1.13-1.32) Phosphorus Level 2.8 mg/dL (2.6-4.7) Magnesium Level 3.4 mg/dL (1.8-2.4) Test 04/11/19 01:15 04/11/19 02:11 04/11/19 03:07 04/11/19 05:20 Glucose (Fingerstick) 100 mg/dL (70-99) 110 mg/dL (70-99) 119 mg/dL (70-99) White Blood Count 18.4 x10^3/uL (4.0-11.0) Red Blood Count 4.46 x10^6/uL (3.50-5.40) Hemoglobin 13.0 g/dL (12.0-15.5) Hematocrit 39.7 % (36.0-47.0) Mean Corpuscular Volume 89 fL (79-100) Mean Corpuscular Hemoglobin 29 pg (25-35) Mean Corpuscular Hemoglobin Concent 33 g/dL (31-37) Red Cell Distribution Width 13.0 % (11.5-14.5) Platelet Count 186 x10^3/uL (140-400) Neutrophils (%) (Auto) 90 % (31-73) Lymphocytes (%) (Auto) 6 % (24-48) Monocytes (%) (Auto) 4 % (0-9) Eosinophils (%) (Auto) 0 % (0-3) Basophils (%) (Auto) 0 % (0-3) Neutrophils # (Auto) 16.6 x10^3/uL (1.8-7.7) Lymphocytes # (Auto) 1.1 x10^3/uL (1.0-4.8) Monocytes # (Auto) 0.7 x10^3/uL (0.0-1.1) Eosinophils # (Auto) 0.0 x10^3/uL (0.0-0.7) Basophils # (Auto) 0.0 x10^3/uL (0.0-0.2) Prothrombin Time 16.2 SEC (11.7-14.0) Prothromb Time International Ratio 1.3 (0.8-1.1) Activated Partial Thromboplast Time 47 SEC (24-38) Heparin Anti-Xa Act, Unfractionated 0.87 IU/mL (0.30-0.70) Sodium Level 138 mmol/L (136-145) Potassium Level 3.1 mmol/L (3.5-5.1) Chloride Level 108 mmol/L (98-107) Carbon Dioxide Level 18 mmol/L (21-32) Anion Gap 12 (6-14) Blood Urea Nitrogen 32 mg/dL (7-20) Creatinine 0.9 mg/dL (0.6-1.0) Estimated GFR (Cockcroft-Gault) 63.9 Glucose Level 180 mg/dL (70-99) Calcium Level 7.9 mg/dL (8.5-10.1) Ionized Calcium 1.20 mmol/L (1.13-1.32) Phosphorus Level 3.5 mg/dL (2.6-4.7) Magnesium Level 2.8 mg/dL (1.8-2.4) Test 04/11/19 05:25 04/11/19 07:50 04/11/19 08:19 Glucose (Fingerstick) 157 mg/dL (70-99) 202 mg/dL (70-99) O2 Saturation 98 % (92-99) Arterial Blood pH 7.18 (7.35-7.45) Arterial Blood pH (Temp corrected) 7.25 Arterial Blood pCO2 at Patient Temp 45 mmHg (35-46) Arterial Blood pCO2 (Temp correct) 36 mmHg Arterial Blood pO2 at Patient Temp 136 mmHg (65-108) Arterial Blood pO2 (Temp corrected) 108 mmHg Arterial Blood HCO3 16 mmol/L (21-28) Arterial Blood Base Excess -12 mmol/L (-3-3) Medications Current Medications Norepinephrine Bitartrate 8 mg/ Dextrose 258 ml @ 13.855 mls/ hr 1X ONCE IV Last administered on 04/10/19at 12:40; Start 04/10/19 at 12:30; Stop 04/10/19 at 12:31; Status DC Amiodarone HCl 450 mg/Dextrose 259 ml @ 33 mls/hr 1X ONCE IV Last administered on 04/10/19at 12:55; Start 04/10/19 at 12:45; Stop 04/10/19 at 20:35; Status DC Sodium Chloride 1,000 ml @ 1,000 mls/hr Q1H IV Last administered on 04/10/19at 12:20; Start 04/10/19 at 12:13; Stop 04/10/19 at 13:12; Status DC Midazolam HCl 50 mg/Sodium Chloride 50 ml @ 1 mls/hr 1X ONCE IV Last administered on 04/10/19at 13:35; Start 04/10/19 at 13:15; Stop 04/12/19 at 15:14 Potassium Chloride/Water 100 ml @ 50 mls/hr 1X ONCE IV ; Start 04/10/19 at 13:15; Stop 04/10/19 at 13:16; Status DC Etomidate (Amidate) 20 mg STK-MED ONCE IV ; Start 04/10/19 at 13:14; Stop 04/10/19 at 13:14; Status DC Midazolam HCl (Versed) 5 mg STK-MED ONCE .ROUTE ; Start 04/10/19 at 13:15; Stop 04/10/19 at 13:15; Status DC Succinylcholine Chloride (Anectine) 200 mg STK-MED ONCE .ROUTE ; Start 04/10/19 at 13:15; Stop 04/10/19 at 13:15; Status DC Potassium Chloride/Water 100 ml @ 100 mls/hr Q1H IV ; Start 04/10/19 at 14:00; Stop 04/10/19 at 15:59; Status DC Sodium Bicarbonate (Sodium Bicarb Adult 8.4% Syr) 50 meq 1X ONCE IV Last admi nistered on 04/10/19at 17:17; Start 04/10/19 at 13:30; Stop 04/10/19 at 13:31; Status DC Sodium Chloride 1,000 ml @ 150 mls/hr Q6H40M IV ; Start 04/10/19 at 13:28; Stop 04/11/19 at 00:46; Status DC Piperacillin Sod/ Tazobactam Sod 3.375 gm/Sodium Chloride 50 ml @ 100 mls/hr 1X ONCE IV Last administered on 04/10/19at 18:35; Start 04/10/19 at 13:45; Stop 04/10/19 at 14:14; Status DC Vancomycin HCl 250 ml @ 250 mls/hr 1X ONCE IV ; Start 04/10/19 at 13:45; Stop 04/10/19 at 14:44; Status UNV Sodium Chloride 1,000 ml @ 1,000 mls/hr 1X ONCE IV Last administered on 04/10/19at 13:45; Start 04/10/19 at 13:45; Stop 04/10/19 at 14:44; Status DC Vancomycin HCl 1.75 gm/Sodium Chloride 500 ml @ 250 mls/hr 1X ONCE IV ; Start 04/10/19 at 14:00; Stop 04/10/19 at 15:59; Status DC Iodixanol (Visipaque 320) 100 ml STK-MED ONCE .ROUTE ; Start 04/10/19 at 14:01; Stop 04/10/19 at 14:02; Status DC Heparin Sodium/ Sodium Chloride 500 ml @ As Directed STK-MED ONCE .ROUTE ; Start 04/10/19 at 14:02; Stop 04/10/19 at 14:02; Status DC Lidocaine HCl (Xylocaine-Mpf 1% 2ml Vial) 2 ml STK-MED ONCE .ROUTE ; Start 04/10/19 at 14:02; Stop 04/10/19 at 14:02; Status DC Lidocaine HCl (Lidocaine 1% 20ml Vial) 20 ml STK-MED ONCE .ROUTE ; Start 04/10/19 at 14:03; Stop 04/10/19 at 14:04; Status DC Heparin Sodium (Porcine) (Heparin Sodium) 10,000 unit STK-MED ONCE .ROUTE ; Start 04/10/19 at 15:16; Stop 04/10/19 at 15:16; Status DC Heparin Sodium/ Sodium Chloride (HEPARIN for ARTERIAL LINE FLUSH) 1,000 unit 1X ONCE IART Last administered on 04/10/19at 15:42; Start 04/10/19 at 15:30; Stop 04/10/19 at 23:39; Status DC Iodixanol (Visipaque 320) 104 ml 1X ONCE IART Last administered on 04/10/19at 15:42; Start 04/10/19 at 15:30; Stop 04/10/19 at 23:39; Status DC Heparin Sodium (Porcine) (Heparin Sodium) 4,000 unit 1X ONCE IV Last administered on 04/10/19at 15:42; Start 04/10/19 at 15:30; Stop 04/10/19 at 23:39; Status DC Lidocaine HCl (Lidocaine 1% 20ml Vial) 20 ml 1X ONCE INJ Last administered on 04/10/19at 15:42; Start 04/10/19 at 15:30; Stop 04/10/19 at 23:39; Status DC Atropine Sulfate (ATROPINE 1mg SYRINGE) 1 mg 1X ONCE IV Last administered on 04/10/19at 12:42; Start 04/10/19 at 12:42; Stop 04/10/19 at 15:42; Status DC Midazolam HCl (Versed) 5 mg 1X ONCE IV Last administered on 04/10/19at 13:15; Start 04/10/19 at 13:15; Stop 04/10/19 at 15:42; Status DC Vecuronium [place] (Norcuron Bolus) 10 mg STK-MED ONCE IV ; Start 04/10/19 at 16:54; Stop 04/10/19 at 16:55; Status DC Fentanyl Citrate (Fentanyl 2ml Vial) 100 mcg STK-MED ONCE .ROUTE ; Start 04/10/19 at 16:55; Stop 04/10/19 at 16:56; Status DC Fentanyl Citrate (Fentanyl 2ml Vial) 100 mcg 1X ONCE IV Last administered on 04/10/19at 17:16; Start 04/10/19 at 17:00; Stop 04/10/19 at 17:01; Status DC Midazolam HCl (Versed) 2 mg 1X ONCE IV ; Start 04/10/19 at 17:00; Stop 04/10/19 at 17:01; Status DC Magnesium Sulfate/ Dextrose 100 ml @ 100 mls/hr 1X ONCE IV Last administered on 04/10/19at 17:16; Start 04/10/19 at 18:00; Stop 04/10/19 at 18:59; Status DC Buspirone HCl (Buspar) 30 mg Q8HRS NG Last administered on 04/11/19at 05:20; Start 04/10/19 at 17:00; Stop 04/12/19 at 06:01 Acetaminophen (Tylenol) 650 mg Q4H NG Last administered on 04/11/19at 08:32; Start 04/10/19 at 17:00 Artificial Tears (Artificial Tears) 1 drop Q6HRS OU Last administered on 04/11/19at 08:32; Start 04/10/19 at 18:00 Artificial Tears (Artificial Tears) 1 drop PRN Q15MIN PRN OU DRY EYE; Start 04/10/19 at 17:00 Heparin Sodium (Porcine) (Heparin Sodium) 5,000 unit BID SQ ; Start 04/10/19 at 21:00; Status Cancel Pantoprazole Sodium (PROTONIX VIAL for IV PUSH) 40 mg DAILY IVP Last administered on 04/11/19at 08:32; Start 04/10/19 at 18:00 Fentanyl Citrate 30 ml @ 0 mls/hr CONT PRN IV PER PROTOCOL. Last administered on 04/11/19at 03:07; Start 04/10/19 at 17:00 Propofol 100 ml @ 0 mls/hr CONT PRN IV PER PROTOCOL. Last administered on 04/10/19at 22:36; Start 04/10/19 at 17:00 Midazolam HCl 50 mg/Sodium Chloride 50 ml @ 0 mls/hr CONT PRN IV PER PROTOCOL.; Start 04/10/19 at 17:00 Vecuronium [place] (Norcuron Bolus) 7 mg PRN Q1HR PRN IV SHIVERING Last administered on 04/10/19at 21:19; Start 04/10/19 at 17:00 Heparin Sodium/ Dextrose 250 ml @ 0 mls/hr CONT PRN IV PER PROTOCOL; Start 04/10/19 at 17:30; Stop 04/10/19 at 23:42; Status DC Heparin Sodium (Porcine) (Heparin Sodium) 2,150 unit PRN Q6HRS PRN IV FOR UFH LEVEL LESS THAN 0.2; Start 04/10/19 at 17:30; Stop 04/10/19 at 23:39; Status DC Heparin Sodium (Porcine) (Heparin Sodium) 1,050 unit PRN Q6HRS PRN IV FOR UFH LEVEL 0.2 - 0.29; Start 04/10/19 at 17:30; Stop 04/10/19 at 23:39; Status DC Hydralazine HCl (Apresoline Inj) 10 mg PRN Q6HRS PRN IVP ELEVATED BP, SEE COMMENTS; Start 04/10/19 at 18:00 Hydralazine HCl (Apresoline Inj) 20 mg STK-MED ONCE .ROUTE ; Start 04/10/19 at 17:56; Stop 04/10/19 at 17:56; Status DC Iohexol (Omnipaque 350 Mg/ml) 75 ml 1X ONCE IV Last administered on 04/10/19at 18:45; Start 04/10/19 at 18:45; Stop 04/10/19 at 18:46; Status DC Insulin Human Regular 100 unit/ Sodium Chloride 101 ml @ 0 mls/hr CONT PRN IV SEE I/O RECORD Last administered on 04/10/19at 22:45; Start 04/10/19 at 19:30 Magnesium Sulfate/ Dextrose 100 ml @ 100 mls/hr PRN DAILY PRN IV MAG level 2.4-3.0mg/dl Last administered on 04/11/19at 08:44; Start 04/10/19 at 20:30 Potassium Chloride/Water 100 ml @ 100 mls/hr PRN DAILY PRN IV K+ level 3.1- 3.4mEq/L Last administered on 04/11/19at 06:50; Start 04/10/19 at 20:30 Magnesium Sulfate/ Dextrose 100 ml @ 100 mls/hr 1X PRN IV MAG level 2.4- 3.0mg/dl Last administered on 04/10/19at 22:17; Start 04/10/19 at 22:00; Stop 04/11/19 at 01:56; Status DC Potassium Chloride/Water 100 ml @ 100 mls/hr 1X PRN IV K+ level 3.1-3.4mEq/L Last administered on 04/10/19at 22:16; Start 04/10/19 at 22:00; Stop 04/11/19 at 01:55; Status DC Norepinephrine Bitartrate 8 mg/ Dextrose 258 ml @ 13.855 mls/ hr CONT PRN IV PER PROTOCOL Last administered on 04/10/19at 22:43; Start 04/10/19 at 22:45 Heparin Sodium/ Dextrose 250 ml @ 0 mls/hr CONT PRN IV PER PROTOCOL Last administered on 04/11/19at 00:43; Start 04/10/19 at 23:45 Heparin Sodium (Porcine) (Heparin Sodium) 1,800 unit PRN Q6HRS PRN IV FOR UFH LEVEL LESS THAN 0.2; Start 04/10/19 at 23:45 Amiodarone HCl 450 mg/Dextrose 259 ml @ 0 mls/hr CONT PRN IV SEE I/O RECORD Last administered on 04/11/19at 03:42; Start 04/11/19 at 00:00 Dextrose/Sodium Chloride 1,000 ml @ 75 mls/hr [id number] IV Last administered on 04/11/19at 01:57; Start 04/11/19 at 01:00 Potassium Chloride/Water 100 ml @ 50 mls/hr PRN DAILY PRN IV K+ level less than 3.1 mEq/l; Start 04/11/19 at 02:00; Status Cancel Potassium Chloride/Water 100 ml @ 100 mls/hr PRN Q1HR PRN IV K<3.1; Start 04/11/19 at 02:00 Magnesium Sulfate/ Dextrose 100 ml @ 100 mls/hr PRN DAILY PRN IV MAG level 2.4-3.0mg/dl; Start 04/11/19 at 06:45; Status UNV Potassium Chloride/Water 100 ml @ 100 mls/hr PRN DAILY PRN IV K+ level 3.1- 3.4mEq/L; Start 04/11/19 at 06:45; Status UNV Active Scripts Active Reported Celebrex (Celecoxib) 100 Mg Capsule 1 Cap PO BID Verapamil Er (Verapamil Hcl) 240 Mg Cap24h.pel 1 Cap PO DAILY Vitals/I & O Vital Sign - Last 24 Hours 04/10/19 04/10/19 04/10/19 04/10/19 12:09 12:15 12:18 12:23 Temp 100.2 100.2 Pulse 80 80 78 76 Resp 8 8 12 12 B/P (MAP) 80/48 (59) 84/52 (63) 80/48 (59) 77/52 (60) Pulse Ox 71 71 97 88 O2 Delivery I-GEL IN PLACE; PT NOT BEING BAGGED WITH AIRWAY IN PLACE I-GEL Bag Valve Mask Bag Valve Mask 1/1604/10/19 04/10/19 04/10/19 12:28 12:30 12:38 12:43 Pulse 68 46 86 Resp 20 20 20 B/P (MAP) 86/53 (64) 95/54 (68) 111/61 (78) Pulse Ox 95 100 100 100 O2 Delivery Ventilator Ventilator Ventilator Ventilator 04/10/19 04/10/19 04/10/19 04/10/19 12:47 12:51 12:56 13:01 Pulse 46 42 50 50 Resp 20 20 20 20 B/P (MAP) 102/55 (71) 102/56 (71) 103/59 (74) 111/60 (77) Pulse Ox 100 100 99 98 O2 Delivery Ventilator Ventilator Ventilator Ventilator 04/10/19 04/10/19 04/10/19 04/10/19 13:06 13:11 13:14 13:40 Pulse 52 52 60 58 Resp 20 20 20 20 B/P (MAP) 96/35 (55) 151/79 (103) 117/56 (76) 150/63 (92) Pulse Ox 97 97 94 99 O2 Delivery Ventilator Ventilator Ventilator Ventilator 04/10/19 04/10/19 04/10/19 04/10/19 13:53 13:56 13:59 16:15 Temp 97.0 Pulse 58 56 56 88 Resp 20 20 20 20 B/P (MAP) 115/67 (83) 119/65 (83) 116/58 (77) Pulse Ox 99 99 99 96 O2 Delivery Ventilator Ventilator Ventilator Ventilator 04/10/19 04/10/19 04/10/19 04/10/19 16:15 16:15 16:29 16:30 Temp 97.1 96.0 97.1 Pulse 88 82 Resp 20 20 B/P (MAP) Pulse Ox 96 100 100 O2 Delivery Ventilator Mechanical Ventilator Ventilator Ventilator 04/10/19 04/10/19 04/10/19 04/10/19 16:45 17:00 17:00 17:15 Temp 96.0 95.5 95.0 Pulse 96 88 88 78 Resp 20 20 20 20 B/P (MAP) 140/121 141/88 141/81 (101) 138/93 Pulse Ox 100 100 88 100 O2 Delivery Ventilator Ventilator Ventilator Ventilator 04/10/19 04/10/19 04/10/19 04/10/19 17:16 17:30 17:45 18:00 Temp 94.6 93.8 93.5 Pulse 72 66 60 Resp 20 20 20 20 B/P (MAP) 140/104 175/108 116/72 Pulse Ox 100 100 100 100 O2 Delivery Ventilator Ventilator Ventilator Ventilator 04/10/19 04/10/19 04/10/19 04/10/19 18:00 18:15 19:00 20:00 Temp 93.0 Pulse 60 56 46 44 Resp 20 20 B/P (MAP) 116/72 (87) 118/74 126/58 (80) 108/60 (76) Pulse Ox 100 98 100 100 O2 Delivery Ventilator Ventilator Ventilator Ventilator 04/10/19 04/10/19 04/10/19 04/10/19 20:00 20:00 21:00 21:00 Temp 92.0 91.8 B/P (MAP) Pulse Ox 100 O2 Delivery Ventilator Mechanical Ventilator Ventilator Ventilator 04/10/19 04/10/19 04/10/19 04/10/19 21:16 22:00 22:00 23:00 Temp 90.0 Pulse 52 50 Resp 20 B/P (MAP) 98/62 (74) 116/66 (83) Pulse Ox 92 100 100 O2 Delivery Ventilator Ventilator Ventilator Ventilator 04/10/19 04/10/19 04/10/19 04/11/19 23:00 23:22 23:59 00:00 Temp 90.6 91.4 B/P (MAP) Pulse Ox 100 O2 Delivery Ventilator Ventilator Mechanical Ventilator Ventilator 04/11/19 04/11/19 04/11/19 04/11/19 00:00 01:00 01:00 01:38 Temp 91.4 91.6 91.4 Pulse 48 48 Resp 20 18 B/P (MAP) 110/48 (68) 92/46 (61) Pulse Ox 100 100 100 O2 Delivery Ventilator Ventilator Ventilator Ventilator 04/11/19 04/11/19 04/11/19 04/11/19 02:00 02:00 03:00 03:00 Temp 92.0 92.9 Pulse 51 50 Resp 16 16 B/P (MAP) 99/57 (71) 102/48 (66) Pulse Ox 100 100 O2 Delivery Ventilator Ventilator Ventilator Ventilator 04/11/19 04/11/19 04/11/19 04/11/19 03:07 03:14 03:37 04:00 Temp 92.5 B/P (MAP) Pulse Ox 100 100 100 O2 Delivery Ventilator Ventilator Ventilator 04/11/19 04/11/19 04/11/19 04/11/19 04:00 04:00 05:00 05:00 Temp 91.3 92.4 91.3 Pulse 45 42 Resp 14 14 B/P (MAP) 126/64 (84) 114/54 (74) Pulse Ox 100 100 O2 Delivery Ventilator Mechanical Ventilator Ventilator Ventilator 04/11/19 04/11/19 04/11/19 04/11/19 06:00 06:00 07:00 07:00 Temp 91.5 89.6 Pulse 40 38 Resp 14 14 B/P (MAP) 100/50 (67) 96/50 (65) Pulse Ox 100 100 O2 Delivery Ventilator Ventilator Ventilator Ventilator 04/11/19 04/11/19 07:17 08:59 Pulse Ox 99 100 O2 Delivery Ventilator Ventilator Intake and Output 04/10/19 04/10/19 04/11/19 15:00 23:00 07:00 Intake Total 1000 ml 1019 ml Output Total 540 ml 340 ml Balance 1000 ml -540 ml 679 ml BHARGAVI WILKS MD Apr 11, 2019 09:23
--- NOTE | 2019-04-11 09:32 | EKG ---
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
[2019-04-11] MEDS ORDERED: ATROPINE 0.5 MG/5 ML DISP.SYRINGE. IM ONE (09:45)
[2019-04-11] MEDS ORDERED: ATROPINE 1 MG/10 ML DISP.SYRINGE. IM ONE (09:45)
[2019-04-11] MEDS: INSULIN REGULAR VIAL 100 UNIT in IV NORMAL SALINE 100ML 100 ML IV PRN (10:23)
--- NOTE | 2019-04-11 10:34 | RAD ---
EXAM: PORTABLE CHEST 1V INDICATION: Fever 106. TECHNIQUE: Single AP view portable semiupright chest COMPARISON: Chest x-ray 04/10/2019 at 12:38 PM FINDINGS: Patient remains intubated with the ET tube 4.6 cm above the terrell. Enteric tube passes below the diaphragms. The heart size is normal. The great vessels appear unremarkable. There is no hilar or mediastinal mass. Diffuse interstitial opacities with greater involvement of the left lung persists with slight interval improvement. More confluent opacification is suggested within the left medial lung base. There is no pleural effusion or pneumothorax. There are no significant osseous abnormalities. IMPRESSION: 1. Stable satisfactory endotracheal intubation. 2. Minimal improvement in bilateral airspace opacities with more conspicuous left medial basal atelectasis/consolidation. Electronically signed by: Edy Orozco MD (04/11/2019 10:31 AM) [facility]
[2019-04-11] MEDS: MIDAZOLAM HCL 50 MG in IV NORMAL SALINE 50ML 50 ML IV PRN ×2 (10:43→14:06)
[2019-04-11] MEDS: VECURONIUM BOLUS 10 MG VIAL. IV PRN ×2 (10:47→15:48)
--- NOTE | 2019-04-11 10:56 | NUR ---
SS following for discharge planning. SS reviewed pt chart. Pt is from home with spouse and is currently on the vent. SS will continue to follow for discharge planning.
[2019-04-11 10:57] LABS: % BANDS 18 % (0-9); % LYMPHS 3 % (24-48); % MONOS 6 % (0-10); % SEGS 73 % (35-66); PLT ESTIMATE ADEQUATE (ADEQUATE)
[2019-04-11] MEDS: IV 1/2 NORMAL SALINE 1,000 ML IV SCH ×2 (11:21→19:36)
--- NOTE | 2019-04-11 11:22 | PDOC ---
PULMONARY PROGRESS NOTES Subjective PT SEDATED ON HYPOTHERMIC PROTOCOL Vitals Vital Signs Date Time Temp Pulse Resp B/P (MAP) Pulse Ox O2 Delivery O2 Flow Rate FiO2 04/11/19 11:06 100 Ventilator 04/11/19 10:41 20 04/11/19 07:00 89.6 04/11/19 07:00 38 Lungs: Clear, Crackles Cardiovascular: S1, S2 Abdomen: Soft Extremities: No Edema Skin: Warm, Diaphoretic Labs Laboratory Tests Test 04/10/19 12:20 04/10/19 12:26 04/10/19 12:31 04/10/19 12:35 White Blood Count 8.7 x10^3/uL (4.0-11.0) Red Blood Count 5.01 x10^6/uL (3.50-5.40) Hemoglobin 15.0 g/dL (12.0-15.5) Hematocrit 45.9 % (36.0-47.0) Mean Corpuscular Volume 92 fL (79-100) Mean Corpuscular Hemoglobin 30 pg (25-35) Mean Corpuscular Hemoglobin Concent 33 g/dL (31-37) Red Cell Distribution Width 12.9 % (11.5-14.5) Platelet Count 176 x10^3/uL (140-400) Neutrophils (%) (Auto) 47 % (31-73) Lymphocytes (%) (Auto) 50 % (24-48) Monocytes (%) (Auto) 2 % (0-9) Eosinophils (%) (Auto) 0 % (0-3) Basophils (%) (Auto) 0 % (0-3) Neutrophils # (Auto) 4.1 x10^3/uL (1.8-7.7) Lymphocytes # (Auto) 4.4 x10^3/uL (1.0-4.8) Monocytes # (Auto) 0.2 x10^3/uL (0.0-1.1) Eosinophils # (Auto) 0.0 x10^3/uL (0.0-0.7) Basophils # (Auto) 0.0 x10^3/uL (0.0-0.2) Segmented Neutrophils % 40 % (35-66) Band Neutrophils % 2 % (0-9) Lymphocytes % 54 % (24-48) Monocytes % 3 % (0-10) Eosinophils % 1 % (0-5) Platelet Estimate Adequate (ADEQUATE) Platelet Clumps, EDTA Present Sodium Level 140 mmol/L (136-145) Potassium Level 3.6 mmol/L (3.5-5.1) Chloride Level 103 mmol/L (98-107) Carbon Dioxide Level 20 mmol/L (21-32) Anion Gap 17 (6-14) 14 mmol/L (6-14) Blood Urea Nitrogen 19 mg/dL (7-20) Creatinine 1.2 mg/dL (0.6-1.0) Estimated GFR (Cockcroft-Gault) 45.8 BUN/Creatinine Ratio 16 (6-20) Glucose Level 300 mg/dL (70-99) 288 mg/dL (70-99) Hemoglobin A1c 5.7 % (4.8-5.6) Lactic Acid Level 9.0 mmol/L (0.4-2.0) Calcium Level 9.4 mg/dL (8.5-10.1) Magnesium Level 2.5 mg/dL (1.8-2.4) Total Bilirubin 0.4 mg/dL (0.2-1.0) Aspartate Amino Transf (AST/SGOT) 128 U/L (15-37) Alanine Aminotransferase (ALT/SGPT) 135 U/L (14-59) Alkaline Phosphatase 83 U/L (46-116) Creatine Kinase 194 U/L (26-192) Troponin I Quantitative 0.633 ng/mL (0.000-0.055) GI-Kzj-T-Type Natriuretic Peptide 409 pg/mL (0-124) Total Protein 6.8 g/dL (6.4-8.2) Albumin 3.4 g/dL (3.4-5.0) Albumin/Globulin Ratio 1.0 (1.0-1.7) Triglycerides Level 83 mg/dL (0-150) Cholesterol Level 168 mg/dL (0-200) LDL Cholesterol, Calculated 92 mg/dL (0-100) VLDL Cholesterol, Calculated 17 mg/dL (0-40) Non-HDL Cholesterol Calculated 109 mg/dL (0-129) HDL Cholesterol 59 mg/dL (40-60) Cholesterol/HDL Ratio 2.8 Lipase 534 U/L (73-393) Thyroid Stimulating Hormone (TSH) 3.367 uIU/mL (0.358-3.74) Glucose (Fingerstick) 269 mg/dL (70-99) Bedside Troponin I 0.37 ng/ml (<0.08) Bedside Hemoglobin 16.0 g/dL (12-15) Bedside Hematocrit 47 % (36-40) Bedside Sodium 139 mmol/L (135-145) Bedside Potassium 3.4 mmol/L (3.5-5.0) Bedside Chloride 106 mmol/L (98-110) Bedside Total CO2 22 mmol/L (23-32) Bedside Blood Urea Nitrogen 21 mg/dL (8-26) Bedside Creatinine 1.1 mg/dL (0.5-1.4) Bedside Ionized Calcium (Kayleigh) 1.22 mmol/L (1.13-1.32) Test 04/10/19 12:57 04/10/19 12:59 04/10/19 13:40 04/10/19 16:05 Prothrombin Time 18.8 SEC (11.7-14.0) Prothromb Time International Ratio 1.6 (0.8-1.1) D-Dimer (Annabelle) > 20.00 ug/mlFEU O2 Saturation 96 % (92-99) Arterial Blood pH 7.18 (7.35-7.45) Arterial Blood pCO2 at Patient Temp 38 mmHg (35-46) Arterial Blood pO2 at Patient Temp 103 mmHg (65-108) Arterial Blood HCO3 14 mmol/L (21-28) Arterial Blood Base Excess -14 mmol/L (-3-3) FiO2 100 Influenza Type A Antigen Negative (NEGATIVE) Influenza Type B Antigen Negative (NEGATIVE) Lactic Acid Level 3.9 mmol/L (0.4-2.0) Test 04/10/19 17:40 04/10/19 18:47 04/10/19 19:23 04/10/19 21:26 O2 Saturation 99 % (92-99) Arterial Blood pH 7.37 (7.35-7.45) Arterial Blood pCO2 at Patient Temp 39 mmHg (35-46) Arterial Blood pO2 at Patient Temp 329 mmHg (65-108) Arterial Blood HCO3 22 mmol/L (21-28) Arterial Blood Base Excess -3 mmol/L (-3-3) FiO2 100 Glucose (Fingerstick) 230 mg/dL (70-99) 208 mg/dL (70-99) Prothrombin Time 17.9 SEC (11.7-14.0) Prothromb Time International Ratio 1.5 (0.8-1.1) Activated Partial Thromboplast Time 53 SEC (24-38) Sodium Level 140 mmol/L (136-145) Potassium Level 3.1 mmol/L (3.5-5.1) Chloride Level 108 mmol/L (98-107) Carbon Dioxide Level 21 mmol/L (21-32) Anion Gap 11 (6-14) Blood Urea Nitrogen 28 mg/dL (7-20) Creatinine 0.9 mg/dL (0.6-1.0) Estimated GFR (Cockcroft-Gault) 63.9 Glucose Level 261 mg/dL (70-99) Calcium Level 7.9 mg/dL (8.5-10.1) Ionized Calcium 1.15 mmol/L (1.13-1.32) Phosphorus Level 3.7 mg/dL (2.6-4.7) Magnesium Level 2.8 mg/dL (1.8-2.4) Test 04/10/19 22:14 04/10/19 23:25 04/11/19 00:23 04/11/19 01:10 Glucose (Fingerstick) 202 mg/dL (70-99) 127 mg/dL (70-99) 134 mg/dL (70-99) Prothrombin Time 16.6 SEC (11.7-14.0) Prothromb Time International Ratio 1.4 (0.8-1.1) Activated Partial Thromboplast Time 41 SEC (24-38) Sodium Level 139 mmol/L (136-145) Potassium Level 2.9 mmol/L (3.5-5.1) Chloride Level 108 mmol/L (98-107) Carbon Dioxide Level 19 mmol/L (21-32) Anion Gap 12 (6-14) Blood Urea Nitrogen 30 mg/dL (7-20) Creatinine 1.0 mg/dL (0.6-1.0) Estimated GFR (Cockcroft-Gault) 56.6 Glucose Level 118 mg/dL (70-99) Calcium Level 8.2 mg/dL (8.5-10.1) Ionized Calcium 1.21 mmol/L (1.13-1.32) Phosphorus Level 2.8 mg/dL (2.6-4.7) Magnesium Level 3.4 mg/dL (1.8-2.4) Test 04/11/19 01:15 04/11/19 02:11 04/11/19 03:07 04/11/19 05:20 Glucose (Fingerstick) 100 mg/dL (70-99) 110 mg/dL (70-99) 119 mg/dL (70-99) White Blood Count 18.4 x10^3/uL (4.0-11.0) Red Blood Count 4.46 x10^6/uL (3.50-5.40) Hemoglobin 13.0 g/dL (12.0-15.5) Hematocrit 39.7 % (36.0-47.0) Mean Corpuscular Volume 89 fL (79-100) Mean Corpuscular Hemoglobin 29 pg (25-35) Mean Corpuscular Hemoglobin Concent 33 g/dL (31-37) Red Cell Distribution Width 13.0 % (11.5-14.5) Platelet Count 186 x10^3/uL (140-400) Neutrophils (%) (Auto) 90 % (31-73) Lymphocytes (%) (Auto) 6 % (24-48) Monocytes (%) (Auto) 4 % (0-9) Eosinophils (%) (Auto) 0 % (0-3) Basophils (%) (Auto) 0 % (0-3) Neutrophils # (Auto) 16.6 x10^3/uL (1.8-7.7) Lymphocytes # (Auto) 1.1 x10^3/uL (1.0-4.8) Monocytes # (Auto) 0.7 x10^3/uL (0.0-1.1) Eosinophils # (Auto) 0.0 x10^3/uL (0.0-0.7) Basophils # (Auto) 0.0 x10^3/uL (0.0-0.2) Segmented Neutrophils % 73 % (35-66) Band Neutrophils % 18 % (0-9) Lymphocytes % 3 % (24-48) Monocytes % 6 % (0-10) Platelet Estimate Adequate (ADEQUATE) Prothrombin Time 16.2 SEC (11.7-14.0) Prothromb Time International Ratio 1.3 (0.8-1.1) Activated Partial Thromboplast Time 47 SEC (24-38) Heparin Anti-Xa Act, Unfractionated 0.87 IU/mL (0.30-0.70) Sodium Level 138 mmol/L (136-145) Potassium Level 3.1 mmol/L (3.5-5.1) Chloride Level 108 mmol/L (98-107) Carbon Dioxide Level 18 mmol/L (21-32) Anion Gap 12 (6-14) Blood Urea Nitrogen 32 mg/dL (7-20) Creatinine 0.9 mg/dL (0.6-1.0) Estimated GFR (Cockcroft-Gault) 63.9 Glucose Level 180 mg/dL (70-99) Calcium Level 7.9 mg/dL (8.5-10.1) Ionized Calcium 1.20 mmol/L (1.13-1.32) Phosphorus Level 3.5 mg/dL (2.6-4.7) Magnesium Level 2.8 mg/dL (1.8-2.4) Test 04/11/19 05:25 04/11/19 07:50 04/11/19 08:19 04/11/19 10:02 Glucose (Fingerstick) 157 mg/dL (70-99) 202 mg/dL (70-99) 190 mg/dL (70-99) O2 Saturation 98 % (92-99) Arterial Blood pH 7.18 (7.35-7.45) Arterial Blood pH (Temp corrected) 7.25 Arterial Blood pCO2 at Patient Temp 45 mmHg (35-46) Arterial Blood pCO2 (Temp correct) 36 mmHg Arterial Blood pO2 at Patient Temp 136 mmHg (65-108) Arterial Blood pO2 (Temp corrected) 108 mmHg Arterial Blood HCO3 16 mmol/L (21-28) Arterial Blood Base Excess -12 mmol/L (-3-3) Laboratory Tests Test 04/10/19 12:20 04/10/19 12:26 04/10/19 12:31 04/10/19 12:35 White Blood Count 8.7 x10^3/uL (4.0-11.0) Red Blood Count 5.01 x10^6/uL (3.50-5.40) Hemoglobin 15.0 g/dL (12.0-15.5) Hematocrit 45.9 % (36.0-47.0) Mean Corpuscular Volume 92 fL (79-100) Mean Corpuscular Hemoglobin 30 pg (25-35) Mean Corpuscular Hemoglobin Concent 33 g/dL (31-37) Red Cell Distribution Width 12.9 % (11.5-14.5) Platelet Count 176 x10^3/uL (140-400) Neutrophils (%) (Auto) 47 % (31-73) Lymphocytes (%) (Auto) 50 % (24-48) Monocytes (%) (Auto) 2 % (0-9) Eosinophils (%) (Auto) 0 % (0-3) Basophils (%) (Auto) 0 % (0-3) Neutrophils # (Auto) 4.1 x10^3/uL (1.8-7.7) Lymphocytes # (Auto) 4.4 x10^3/uL (1.0-4.8) Monocytes # (Auto) 0.2 x10^3/uL (0.0-1.1) Eosinophils # (Auto) 0.0 x10^3/uL (0.0-0.7) Basophils # (Auto) 0.0 x10^3/uL (0.0-0.2) Segmented Neutrophils % 40 % (35-66) Band Neutrophils % 2 % (0-9) Lymphocytes % 54 % (24-48) Monocytes % 3 % (0-10) Eosinophils % 1 % (0-5) Platelet Estimate Adequate (ADEQUATE) Platelet Clumps, EDTA Present Sodium Level 140 mmol/L (136-145) Potassium Level 3.6 mmol/L (3.5-5.1) Chloride Level 103 mmol/L (98-107) Carbon Dioxide Level 20 mmol/L (21-32) Anion Gap 17 (6-14) 14 mmol/L (6-14) Blood Urea Nitrogen 19 mg/dL (7-20) Creatinine 1.2 mg/dL (0.6-1.0) Estimated GFR (Cockcroft-Gault) 45.8 BUN/Creatinine Ratio 16 (6-20) Glucose Level 300 mg/dL (70-99) 288 mg/dL (70-99) Hemoglobin A1c 5.7 % (4.8-5.6) Lactic Acid Level 9.0 mmol/L (0.4-2.0) Calcium Level 9.4 mg/dL (8.5-10.1) Magnesium Level 2.5 mg/dL (1.8-2.4) Total Bilirubin 0.4 mg/dL (0.2-1.0) Aspartate Amino Transf (AST/SGOT) 128 U/L (15-37) Alanine Aminotransferase (ALT/SGPT) 135 U/L (14-59) Alkaline Phosphatase 83 U/L (46-116) Creatine Kinase 194 U/L (26-192) Troponin I Quantitative 0.633 ng/mL (0.000-0.055) SR-Cch-U-Type Natriuretic Peptide 409 pg/mL (0-124) Total Protein 6.8 g/dL (6.4-8.2) Albumin 3.4 g/dL (3.4-5.0) Albumin/Globulin Ratio 1.0 (1.0-1.7) Triglycerides Level 83 mg/dL (0-150) Cholesterol Level 168 mg/dL (0-200) LDL Cholesterol, Calculated 92 mg/dL (0-100) VLDL Cholesterol, Calculated 17 mg/dL (0-40) Non-HDL Cholesterol Calculated 109 mg/dL (0-129) HDL Cholesterol 59 mg/dL (40-60) Cholesterol/HDL Ratio 2.8 Lipase 534 U/L (73-393) Thyroid Stimulating Hormone (TSH) 3.367 uIU/mL (0.358-3.74) Glucose (Fingerstick) 269 mg/dL (70-99) Bedside Troponin I 0.37 ng/ml (<0.08) Bedside Hemoglobin 16.0 g/dL (12-15) Bedside Hematocrit 47 % (36-40) Bedside Sodium 139 mmol/L (135-145) Bedside Potassium 3.4 mmol/L (3.5-5.0) Bedside Chloride 106 mmol/L (98-110) Bedside Total CO2 22 mmol/L (23-32) Bedside Blood Urea Nitrogen 21 mg/dL (8-26) Bedside Creatinine 1.1 mg/dL (0.5-1.4) Bedside Ionized Calcium (Kayleigh) 1.22 mmol/L (1.13-1.32) Test 04/10/19 12:57 04/10/19 12:59 04/10/19 13:40 04/10/19 16:05 Prothrombin Time 18.8 SEC (11.7-14.0) Prothromb Time International Ratio 1.6 (0.8-1.1) D-Dimer (Annabelle) > 20.00 ug/mlFEU O2 Saturation 96 % (92-99) Arterial Blood pH 7.18 (7.35-7.45) Arterial Blood pCO2 at Patient Temp 38 mmHg (35-46) Arterial Blood pO2 at Patient Temp 103 mmHg (65-108) Arterial Blood HCO3 14 mmol/L (21-28) Arterial Blood Base Excess -14 mmol/L (-3-3) FiO2 100 Influenza Type A Antigen Negative (NEGATIVE) Influenza Type B Antigen Negative (NEGATIVE) Lactic Acid Level 3.9 mmol/L (0.4-2.0) Test 04/10/19 17:40 04/10/19 18:47 04/10/19 19:23 04/10/19 21:26 O2 Saturation 99 % (92-99) Arterial Blood pH 7.37 (7.35-7.45) Arterial Blood pCO2 at Patient Temp 39 mmHg (35-46) Arterial Blood pO2 at Patient Temp 329 mmHg (65-108) Arterial Blood HCO3 22 mmol/L (21-28) Arterial Blood Base Excess -3 mmol/L (-3-3) FiO2 100 Glucose (Fingerstick) 230 mg/dL (70-99) 208 mg/dL (70-99) Prothrombin Time 17.9 SEC (11.7-14.0) Prothromb Time International Ratio 1.5 (0.8-1.1) Activated Partial Thromboplast Time 53 SEC (24-38) Sodium Level 140 mmol/L (136-145) Potassium Level 3.1 mmol/L (3.5-5.1) Chloride Level 108 mmol/L (98-107) Carbon Dioxide Level 21 mmol/L (21-32) Anion Gap 11 (6-14) Blood Urea Nitrogen 28 mg/dL (7-20) Creatinine 0.9 mg/dL (0.6-1.0) Estimated GFR (Cockcroft-Gault) 63.9 Glucose Level 261 mg/dL (70-99) Calcium Level 7.9 mg/dL (8.5-10.1) Ionized Calcium 1.15 mmol/L (1.13-1.32) Phosphorus Level 3.7 mg/dL (2.6-4.7) Magnesium Level 2.8 mg/dL (1.8-2.4) Test 04/10/19 22:14 04/10/19 23:25 04/11/19 00:23 04/11/19 01:10 Glucose (Fingerstick) 202 mg/dL (70-99) 127 mg/dL (70-99) 134 mg/dL (70-99) Prothrombin Time 16.6 SEC (11.7-14.0) Prothromb Time International Ratio 1.4 (0.8-1.1) Activated Partial Thromboplast Time 41 SEC (24-38) Sodium Level 139 mmol/L (136-145) Potassium Level 2.9 mmol/L (3.5-5.1) Chloride Level 108 mmol/L (98-107) Carbon Dioxide Level 19 mmol/L (21-32) Anion Gap 12 (6-14) Blood Urea Nitrogen 30 mg/dL (7-20) Creatinine 1.0 mg/dL (0.6-1.0) Estimated GFR (Cockcroft-Gault) 56.6 Glucose Level 118 mg/dL (70-99) Calcium Level 8.2 mg/dL (8.5-10.1) Ionized Calcium 1.21 mmol/L (1.13-1.32) Phosphorus Level 2.8 mg/dL (2.6-4.7) Magnesium Level 3.4 mg/dL (1.8-2.4) Test 04/11/19 01:15 04/11/19 02:11 04/11/19 03:07 04/11/19 05:20 Glucose (Fingerstick) 100 mg/dL (70-99) 110 mg/dL (70-99) 119 mg/dL (70-99) White Blood Count 18.4 x10^3/uL (4.0-11.0) Red Blood Count 4.46 x10^6/uL (3.50-5.40) Hemoglobin 13.0 g/dL (12.0-15.5) Hematocrit 39.7 % (36.0-47.0) Mean Corpuscular Volume 89 fL (79-100) Mean Corpuscular Hemoglobin 29 pg (25-35) Mean Corpuscular Hemoglobin Concent 33 g/dL (31-37) Red Cell Distribution Width 13.0 % (11.5-14.5) Platelet Count 186 x10^3/uL (140-400) Neutrophils (%) (Auto) 90 % (31-73) Lymphocytes (%) (Auto) 6 % (24-48) Monocytes (%) (Auto) 4 % (0-9) Eosinophils (%) (Auto) 0 % (0-3) Basophils (%) (Auto) 0 % (0-3) Neutrophils # (Auto) 16.6 x10^3/uL (1.8-7.7) Lymphocytes # (Auto) 1.1 x10^3/uL (1.0-4.8) Monocytes # (Auto) 0.7 x10^3/uL (0.0-1.1) Eosinophils # (Auto) 0.0 x10^3/uL (0.0-0.7) Basophils # (Auto) 0.0 x10^3/uL (0.0-0.2) Segmented Neutrophils % 73 % (35-66) Band Neutrophils % 18 % (0-9) Lymphocytes % 3 % (24-48) Monocytes % 6 % (0-10) Platelet Estimate Adequate (ADEQUATE) Prothrombin Time 16.2 SEC (11.7-14.0) Prothromb Time International Ratio 1.3 (0.8-1.1) Activated Partial Thromboplast Time 47 SEC (24-38) Heparin Anti-Xa Act, Unfractionated 0.87 IU/mL (0.30-0.70) Sodium Level 138 mmol/L (136-145) Potassium Level 3.1 mmol/L (3.5-5.1) Chloride Level 108 mmol/L (98-107) Carbon Dioxide Level 18 mmol/L (21-32) Anion Gap 12 (6-14) Blood Urea Nitrogen 32 mg/dL (7-20) Creatinine 0.9 mg/dL (0.6-1.0) Estimated GFR (Cockcroft-Gault) 63.9 Glucose Level 180 mg/dL (70-99) Calcium Level 7.9 mg/dL (8.5-10.1) Ionized Calcium 1.20 mmol/L (1.13-1.32) Phosphorus Level 3.5 mg/dL (2.6-4.7) Magnesium Level 2.8 mg/dL (1.8-2.4) Test 04/11/19 05:25 04/11/19 07:50 04/11/19 08:19 04/11/19 10:02 Glucose (Fingerstick) 157 mg/dL (70-99) 202 mg/dL (70-99) 190 mg/dL (70-99) O2 Saturation 98 % (92-99) Arterial Blood pH 7.18 (7.35-7.45) Arterial Blood pH (Temp corrected) 7.25 Arterial Blood pCO2 at Patient Temp 45 mmHg (35-46) Arterial Blood pCO2 (Temp correct) 36 mmHg Arterial Blood pO2 at Patient Temp 136 mmHg (65-108) Arterial Blood pO2 (Temp corrected) 108 mmHg Arterial Blood HCO3 16 mmol/L (21-28) Arterial Blood Base Excess -12 mmol/L (-3-3) Medications Active Scripts Medications Dose Route/Sig Max Daily Dose Days Date Category Celebrex (Celecoxib) 100 Mg Capsule 1 Cap PO BID 04/11/19 Reported Verapamil Er (Verapamil Hcl) 240 Mg Cap24h.pel 1 Cap PO DAILY 04/11/19 Reported Impression . IMPRESSION: 1. [id number] cardiopulmonary arrest, etiology unclear. 2. Status post emergent cardiac catheterization revealing normal ejection fraction, nonobstructive coronary artery disease, 50% stenosis involving the dominant right coronary artery. Normal left ventricular ejection fraction estimated at 55%. 3. Hypertension. 4. Recent acute bronchitis. CTA CHEST IMPRESSION: 1. No pulmonary embolus identified within the main, lobar or segmental pulmonary arteries. 2. Layering consolidative changes in the lungs bilaterally greater on the left favored to represent pulmonary edema. Superimposed infectious process is difficult to exclude. FINDINGS 1. Hemodynamics: Left ventricular end-diastolic pressure 5 mmHg. No pullback gradient across the aortic valve. 2. Left ventriculography: Normal left ventricle systolic function with ejection fraction estimated at 55%. No significant mitral regurgitation seen. 3. Coronary angiography: a. The left main coronary artery arose from the left sinus of Valsalva, gave rise to the left anterior descending and left circumflex arteries and did not show any significant stenosis. b. The left anterior descending artery showed 30% stenosis in the midsegment. The diagonal branch showed 50% stenosis in the proximal segment. c. The left circumflex artery did not show any significant stenosis. d. The right coronary artery was a large and dominant vessel arising from the right sinus of Valsalva that showed 50% stenosis in the midsegment. This was physiologically insignificant based on IFR measurement of 1.0. Conclusion 1. Nonobstructive coronary artery disease. 50% stenosis involving dominant right coronary artery that was physiologically not significant based on IFR measurement. The diagonal branch which is a small to medium caliber vessel also showed 50% proximal segment stenosis. 2. Normal left ventricle systolic function with ejection fraction estimated at 55%. Recommendations Consider AICD implantation for secondary prevention of sudden cardiac if workup for pulmonary embolism as negative Plan . NEGATIVE CTA OF CHEST WILL CONTINUE SUPPORT IV LASIX EMPIRIC ANTIBX HYPOTHERMIC PROTOCOL SPOKE WITH I AM HOPEFUL THAT SHE HAS NOT SUFFERED ANOXIC BRAIN INJURY CCT 35 MINUTES IAIN AUGUSTINE MD Apr 11, 2019 11:22
--- NOTE | 2019-04-11 12:03 | PDOC ---
PROGRESS NOTES Subjective Subjective Intubated and sedated, on hypothymia protocol Objective Objective Vital Signs Date Time Temp Pulse Resp B/P (MAP) Pulse Ox O2 Delivery O2 Flow Rate FiO2 04/11/19 11:20 20 100 Ventilator 04/11/19 11:00 91.4 04/11/19 11:00 46 Intake and Output 04/11/19 07:00 Intake Total 2019 ml Output Total 880 ml Balance 1139 ml Intake IV Total 2019 ml Output Urine Total 880 ml Physical Exam Abdomen: Soft Heart: Other (bradycardia) Extremities: No cyanosis, No edema General: Other (intubated) HEENT: Atraumatic Lungs: Other (intubated with vent) Neck: No JVD Psych/Mental Status: Other (intubated) Skin: No significant lesion Assessment Assessment 1. Cardiac arrest from VT/VF. Patient currently on hypothermia protocol. Cardiac catheterization yesterday showed nonobstructive coronary artery disease with normal left ventricle systolic function. Telemetry showed sinus bradycardia without any VT/VF. CTA of the chest did not show any acute pulmonary embolism. Continue amiodarone infusion per protocol. Plan for AICD implantation for secondary prevention of sudden cardiac once patient is extubated. 2. Acute respiratory failure secondary to #1 s/p intubation and sedation. Continue vent management per pulmonary team. 3. Hypertension: Controlled 4. Severe sinus bradycardia, could be related to hypokalemia. Start low-dose dopamine infusion for chronotropic support. Plan Plan of Care Problems Medical Problems: (1) Acute respiratory acidosis Status: Acute (2) Cardiorespiratory arrest Status: Acute (3) Elevated d-dimer Status: Acute (4) Elevated troponin Status: Acute (5) Hyperglycemia Status: Acute (6) Hypokalemia Status: Acute (7) NSTEMI (non-ST elevated myocardial infarction) Status: Acute (8) Pneumonia Status: Acute (9) Sepsis Status: Acute (10) Severe sepsis Status: Acute Comment Review of Relevant I have reviewed the following items fracisco (where applicable) has been applied. Labs Laboratory Tests Test 04/10/19 12:20 04/10/19 12:26 04/10/19 12:31 04/10/19 12:35 White Blood Count 8.7 x10^3/uL (4.0-11.0) Red Blood Count 5.01 x10^6/uL (3.50-5.40) Hemoglobin 15.0 g/dL (12.0-15.5) Hematocrit 45.9 % (36.0-47.0) Mean Corpuscular Volume 92 fL (79-100) Mean Corpuscular Hemoglobin 30 pg (25-35) Mean Corpuscular Hemoglobin Concent 33 g/dL (31-37) Red Cell Distribution Width 12.9 % (11.5-14.5) Platelet Count 176 x10^3/uL (140-400) Neutrophils (%) (Auto) 47 % (31-73) Lymphocytes (%) (Auto) 50 % (24-48) Monocytes (%) (Auto) 2 % (0-9) Eosinophils (%) (Auto) 0 % (0-3) Basophils (%) (Auto) 0 % (0-3) Neutrophils # (Auto) 4.1 x10^3/uL (1.8-7.7) Lymphocytes # (Auto) 4.4 x10^3/uL (1.0-4.8) Monocytes # (Auto) 0.2 x10^3/uL (0.0-1.1) Eosinophils # (Auto) 0.0 x10^3/uL (0.0-0.7) Basophils # (Auto) 0.0 x10^3/uL (0.0-0.2) Segmented Neutrophils % 40 % (35-66) Band Neutrophils % 2 % (0-9) Lymphocytes % 54 % (24-48) Monocytes % 3 % (0-10) Eosinophils % 1 % (0-5) Platelet Estimate Adequate (ADEQUATE) Platelet Clumps, EDTA Present Sodium Level 140 mmol/L (136-145) Potassium Level 3.6 mmol/L (3.5-5.1) Chloride Level 103 mmol/L (98-107) Carbon Dioxide Level 20 mmol/L (21-32) Anion Gap 17 (6-14) 14 mmol/L (6-14) Blood Urea Nitrogen 19 mg/dL (7-20) Creatinine 1.2 mg/dL (0.6-1.0) Estimated GFR (Cockcroft-Gault) 45.8 BUN/Creatinine Ratio 16 (6-20) Glucose Level 300 mg/dL (70-99) 288 mg/dL (70-99) Hemoglobin A1c 5.7 % (4.8-5.6) Lactic Acid Level 9.0 mmol/L (0.4-2.0) Calcium Level 9.4 mg/dL (8.5-10.1) Magnesium Level 2.5 mg/dL (1.8-2.4) Total Bilirubin 0.4 mg/dL (0.2-1.0) Aspartate Amino Transf (AST/SGOT) 128 U/L (15-37) Alanine Aminotransferase (ALT/SGPT) 135 U/L (14-59) Alkaline Phosphatase 83 U/L (46-116) Creatine Kinase 194 U/L (26-192) Troponin I Quantitative 0.633 ng/mL (0.000-0.055) QT-Xmk-G-Type Natriuretic Peptide 409 pg/mL (0-124) Total Protein 6.8 g/dL (6.4-8.2) Albumin 3.4 g/dL (3.4-5.0) Albumin/Globulin Ratio 1.0 (1.0-1.7) Triglycerides Level 83 mg/dL (0-150) Cholesterol Level 168 mg/dL (0-200) LDL Cholesterol, Calculated 92 mg/dL (0-100) VLDL Cholesterol, Calculated 17 mg/dL (0-40) Non-HDL Cholesterol Calculated 109 mg/dL (0-129) HDL Cholesterol 59 mg/dL (40-60) Cholesterol/HDL Ratio 2.8 Lipase 534 U/L (73-393) Thyroid Stimulating Hormone (TSH) 3.367 uIU/mL (0.358-3.74) Glucose (Fingerstick) 269 mg/dL (70-99) Bedside Troponin I 0.37 ng/ml (<0.08) Bedside Hemoglobin 16.0 g/dL (12-15) Bedside Hematocrit 47 % (36-40) Bedside Sodium 139 mmol/L (135-145) Bedside Potassium 3.4 mmol/L (3.5-5.0) Bedside Chloride 106 mmol/L (98-110) Bedside Total CO2 22 mmol/L (23-32) Bedside Blood Urea Nitrogen 21 mg/dL (8-26) Bedside Creatinine 1.1 mg/dL (0.5-1.4) Bedside Ionized Calcium (Kayleigh) 1.22 mmol/L (1.13-1.32) Test 04/10/19 12:57 04/10/19 12:59 04/10/19 13:40 04/10/19 16:05 Prothrombin Time 18.8 SEC (11.7-14.0) Prothromb Time International Ratio 1.6 (0.8-1.1) D-Dimer (Annabelle) > 20.00 ug/mlFEU O2 Saturation 96 % (92-99) Arterial Blood pH 7.18 (7.35-7.45) Arterial Blood pCO2 at Patient Temp 38 mmHg (35-46) Arterial Blood pO2 at Patient Temp 103 mmHg (65-108) Arterial Blood HCO3 14 mmol/L (21-28) Arterial Blood Base Excess -14 mmol/L (-3-3) FiO2 100 Influenza Type A Antigen Negative (NEGATIVE) Influenza Type B Antigen Negative (NEGATIVE) Lactic Acid Level 3.9 mmol/L (0.4-2.0) Test 04/10/19 17:40 04/10/19 18:47 04/10/19 19:23 04/10/19 21:26 O2 Saturation 99 % (92-99) Arterial Blood pH 7.37 (7.35-7.45) Arterial Blood pCO2 at Patient Temp 39 mmHg (35-46) Arterial Blood pO2 at Patient Temp 329 mmHg (65-108) Arterial Blood HCO3 22 mmol/L (21-28) Arterial Blood Base Excess -3 mmol/L (-3-3) FiO2 100 Glucose (Fingerstick) 230 mg/dL (70-99) 208 mg/dL (70-99) Prothrombin Time 17.9 SEC (11.7-14.0) Prothromb Time International Ratio 1.5 (0.8-1.1) Activated Partial Thromboplast Time 53 SEC (24-38) Sodium Level 140 mmol/L (136-145) Potassium Level 3.1 mmol/L (3.5-5.1) Chloride Level 108 mmol/L (98-107) Carbon Dioxide Level 21 mmol/L (21-32) Anion Gap 11 (6-14) Blood Urea Nitrogen 28 mg/dL (7-20) Creatinine 0.9 mg/dL (0.6-1.0) Estimated GFR (Cockcroft-Gault) 63.9 Glucose Level 261 mg/dL (70-99) Calcium Level 7.9 mg/dL (8.5-10.1) Ionized Calcium 1.15 mmol/L (1.13-1.32) Phosphorus Level 3.7 mg/dL (2.6-4.7) Magnesium Level 2.8 mg/dL (1.8-2.4) Test 04/10/19 22:14 04/10/19 23:25 04/11/19 00:23 04/11/19 01:10 Glucose (Fingerstick) 202 mg/dL (70-99) 127 mg/dL (70-99) 134 mg/dL (70-99) Prothrombin Time 16.6 SEC (11.7-14.0) Prothromb Time International Ratio 1.4 (0.8-1.1) Activated Partial Thromboplast Time 41 SEC (24-38) Sodium Level 139 mmol/L (136-145) Potassium Level 2.9 mmol/L (3.5-5.1) Chloride Level 108 mmol/L (98-107) Carbon Dioxide Level 19 mmol/L (21-32) Anion Gap 12 (6-14) Blood Urea Nitrogen 30 mg/dL (7-20) Creatinine 1.0 mg/dL (0.6-1.0) Estimated GFR (Cockcroft-Gault) 56.6 Glucose Level 118 mg/dL (70-99) Calcium Level 8.2 mg/dL (8.5-10.1) Ionized Calcium 1.21 mmol/L (1.13-1.32) Phosphorus Level 2.8 mg/dL (2.6-4.7) Magnesium Level 3.4 mg/dL (1.8-2.4) Test 04/11/19 01:15 04/11/19 02:11 04/11/19 03:07 04/11/19 05:20 Glucose (Fingerstick) 100 mg/dL (70-99) 110 mg/dL (70-99) 119 mg/dL (70-99) White Blood Count 18.4 x10^3/uL (4.0-11.0) Red Blood Count 4.46 x10^6/uL (3.50-5.40) Hemoglobin 13.0 g/dL (12.0-15.5) Hematocrit 39.7 % (36.0-47.0) Mean Corpuscular Volume 89 fL (79-100) Mean Corpuscular Hemoglobin 29 pg (25-35) Mean Corpuscular Hemoglobin Concent 33 g/dL (31-37) Red Cell Distribution Width 13.0 % (11.5-14.5) Platelet Count 186 x10^3/uL (140-400) Neutrophils (%) (Auto) 90 % (31-73) Lymphocytes (%) (Auto) 6 % (24-48) Monocytes (%) (Auto) 4 % (0-9) Eosinophils (%) (Auto) 0 % (0-3) Basophils (%) (Auto) 0 % (0-3) Neutrophils # (Auto) 16.6 x10^3/uL (1.8-7.7) Lymphocytes # (Auto) 1.1 x10^3/uL (1.0-4.8) Monocytes # (Auto) 0.7 x10^3/uL (0.0-1.1) Eosinophils # (Auto) 0.0 x10^3/uL (0.0-0.7) Basophils # (Auto) 0.0 x10^3/uL (0.0-0.2) Segmented Neutrophils % 73 % (35-66) Band Neutrophils % 18 % (0-9) Lymphocytes % 3 % (24-48) Monocytes % 6 % (0-10) Platelet Estimate Adequate (ADEQUATE) Prothrombin Time 16.2 SEC (11.7-14.0) Prothromb Time International Ratio 1.3 (0.8-1.1) Activated Partial Thromboplast Time 47 SEC (24-38) Heparin Anti-Xa Act, Unfractionated 0.87 IU/mL (0.30-0.70) Sodium Level 138 mmol/L (136-145) Potassium Level 3.1 mmol/L (3.5-5.1) Chloride Level 108 mmol/L (98-107) Carbon Dioxide Level 18 mmol/L (21-32) Anion Gap 12 (6-14) Blood Urea Nitrogen 32 mg/dL (7-20) Creatinine 0.9 mg/dL (0.6-1.0) Estimated GFR (Cockcroft-Gault) 63.9 Glucose Level 180 mg/dL (70-99) Calcium Level 7.9 mg/dL (8.5-10.1) Ionized Calcium 1.20 mmol/L (1.13-1.32) Phosphorus Level 3.5 mg/dL (2.6-4.7) Magnesium Level 2.8 mg/dL (1.8-2.4) Test 04/11/19 05:25 04/11/19 07:50 04/11/19 08:19 04/11/19 10:02 Glucose (Fingerstick) 157 mg/dL (70-99) 202 mg/dL (70-99) 190 mg/dL (70-99) O2 Saturation 98 % (92-99) Arterial Blood pH 7.18 (7.35-7.45) Arterial Blood pH (Temp corrected) 7.25 Arterial Blood pCO2 at Patient Temp 45 mmHg (35-46) Arterial Blood pCO2 (Temp correct) 36 mmHg Arterial Blood pO2 at Patient Temp 136 mmHg (65-108) Arterial Blood pO2 (Temp corrected) 108 mmHg Arterial Blood HCO3 16 mmol/L (21-28) Arterial Blood Base Excess -12 mmol/L (-3-3) Test 04/11/19 11:22 Glucose (Fingerstick) 163 mg/dL (70-99) Medications Current Medications Acetaminophen (Tylenol) 650 mg Q4H NG Last administered on 04/11/19at 08:32; Start 04/10/19 at 17:00 Amiodarone HCl 450 mg/Dextrose 259 ml @ 33 mls/hr 1X ONCE IV Last administered on 04/10/19at 12:55; Start 04/10/19 at 12:45; Stop 04/10/19 at 20:35; Status DC Amiodarone HCl 450 mg/Dextrose 259 ml @ 0 mls/hr CONT PRN IV SEE I/O RECORD Last administered on 04/11/19at 03:42; Start 04/11/19 at 00:00 Artificial Tears (Artificial Tears) 1 drop PRN Q15MIN PRN OU DRY EYE; Start 04/10/19 at 17:00 Artificial Tears (Artificial Tears) 1 drop Q6HRS OU Last administered on 04/11/19at 08:32; Start 04/10/19 at 18:00 Atropine Sulfate (ATROPINE 0.5mg SYRINGE) 0.25 mg 1X ONCE IM ; Start 04/11/19 at 09:45; Stop 04/11/19 at 09:38; Status DC Atropine Sulfate (ATROPINE 1mg SYRINGE) 0.25 mg 1X ONCE IM Last administered on 04/11/19at 09:55; Start 04/11/19 at 09:45; Stop 04/11/19 at 09:46; Status DC Atropine Sulfate (ATROPINE 1mg SYRINGE) 1 mg 1X ONCE IV Last administered on 04/10/19at 12:42; Start 04/10/19 at 12:42; Stop 04/10/19 at 15:42; Status DC Buspirone HCl (Buspar) 30 mg Q8HRS NG Last administered on 04/11/19at 05:20; Start 04/10/19 at 17:00; Stop 04/12/19 at 06:01 Dextrose/Sodium Chloride 1,000 ml @ 75 mls/hr [id number] IV Last administered on 04/11/19at 01:57; Start 04/11/19 at 01:00; Stop 04/11/19 at 10:53; Status DC Dopamine HCl/ Dextrose 250 ml @ 6.676 mls/ hr CONT PRN IV SEE I/O RECORD Last administered on 04/11/19at 09:55; Start 04/11/19 at 10:00 Etomidate (Amidate) 20 mg STK-MED ONCE IV ; Start 04/10/19 at 13:14; Stop 04/10/19 at 13:14; Status DC Fentanyl Citrate 30 ml @ 0 mls/hr CONT PRN IV PER PROTOCOL. Last administered on 04/11/19at 10:41; Start 04/10/19 at 17:00 Fentanyl Citrate (Fentanyl 2ml Vial) 100 mcg 1X ONCE IV Last administered on 04/10/19at 17:16; Start 04/10/19 at 17:00; Stop 04/10/19 at 17:01; Status DC Fentanyl Citrate (Fentanyl 2ml Vial) 100 mcg STK-MED ONCE .ROUTE ; Start 04/10/19 at 16:55; Stop 04/10/19 at 16:56; Status DC Heparin Sodium (Porcine) (Heparin Sodium) 1,050 unit PRN Q6HRS PRN IV FOR UFH LEVEL 0.2 - 0.29; Start 04/10/19 at 17:30; Stop 04/10/19 at 23:39; Status DC Heparin Sodium (Porcine) (Heparin Sodium) 1,800 unit PRN Q6HRS PRN IV FOR UFH LEVEL LESS THAN 0.2; Start 04/10/19 at 23:45; Stop 04/11/19 at 09:54; Status DC Heparin Sodium (Porcine) (Heparin Sodium) 2,150 unit PRN Q6HRS PRN IV FOR UFH LEVEL LESS THAN 0.2; Start 04/10/19 at 17:30; Stop 04/10/19 at 23:39; Status DC Heparin Sodium (Porcine) (Heparin Sodium) 4,000 unit 1X ONCE IV Last administered on 04/10/19at 15:42; Start 04/10/19 at 15:30; Stop 04/10/19 at 23:39; Status DC Heparin Sodium (Porcine) (Heparin Sodium) 5,000 unit BID SQ ; Start 04/10/19 at 21:00; Status Cancel Heparin Sodium (Porcine) (Heparin Sodium) 10,000 unit STK-MED ONCE .ROUTE ; Start 04/10/19 at 15:16; Stop 04/10/19 at 15:16; Status DC Heparin Sodium/ Dextrose 250 ml @ 0 mls/hr CONT PRN IV PER PROTOCOL; Start 04/10/19 at 17:30; Stop 04/10/19 at 23:42; Status DC Heparin Sodium/ Dextrose 250 ml @ 0 mls/hr CONT PRN IV PER PROTOCOL Last administered on 04/11/19at 00:43; Start 04/10/19 at 23:45; Stop 04/11/19 at 09:36; Status DC Heparin Sodium/ Sodium Chloride 500 ml @ As Directed STK-MED ONCE .ROUTE ; Start 04/10/19 at 14:02; Stop 04/10/19 at 14:02; Status DC Heparin Sodium/ Sodium Chloride (HEPARIN for ARTERIAL LINE FLUSH) 1,000 unit 1X ONCE IART Last administered on 04/10/19at 15:42; Start 04/10/19 at 15:30; Stop 04/10/19 at 23:39; Status DC Hydralazine HCl (Apresoline Inj) 10 mg PRN Q6HRS PRN IVP ELEVATED BP, SEE COMMENTS; Start 04/10/19 at 18:00 Hydralazine HCl (Apresoline Inj) 20 mg STK-MED ONCE .ROUTE ; Start 04/10/19 at 17:56; Stop 04/10/19 at 17:56; Status DC Insulin Human Regular 100 unit/ Sodium Chloride 101 ml @ 0 mls/hr CONT PRN IV SEE I/O RECORD Last administered on 04/11/19at 10:23; Start 04/10/19 at 19:30 Iodixanol (Visipaque 320) 100 ml STK-MED ONCE .ROUTE ; Start 04/10/19 at 14:01; Stop 04/10/19 at 14:02; Status DC Iodixanol (Visipaque 320) 104 ml 1X ONCE IART Last administered on 04/10/19at 15:42; Start 04/10/19 at 15:30; Stop 04/10/19 at 23:39; Status DC Iohexol (Omnipaque 350 Mg/ml) 75 ml 1X ONCE IV Last administered on 04/10/19at 18:45; Start 04/10/19 at 18:45; Stop 04/10/19 at 18:46; Status DC Lidocaine HCl (Lidocaine 1% 20ml Vial) 20 ml 1X ONCE INJ Last administered on 04/10/19at 15:42; Start 04/10/19 at 15:30; Stop 04/10/19 at 23:39; Status DC Lidocaine HCl (Lidocaine 1% 20ml Vial) 20 ml STK-MED ONCE .ROUTE ; Start 04/10/19 at 14:03; Stop 04/10/19 at 14:04; Status DC Lidocaine HCl (Xylocaine-Mpf 1% 2ml Vial) 2 ml STK-MED ONCE .ROUTE ; Start 04/10/19 at 14:02; Stop 04/10/19 at 14:02; Status DC Magnesium Sulfate/ Dextrose 100 ml @ 100 mls/hr 1X ONCE IV Last administered on 04/10/19at 17:16; Start 04/10/19 at 18:00; Stop 04/10/19 at 18:59; Status DC Magnesium Sulfate/ Dextrose 100 ml @ 100 mls/hr 1X PRN IV MAG level 2.4- 3.0mg/dl Last administered on 04/10/19at 22:17; Start 04/10/19 at 22:00; Stop 04/11/19 at 01:56; Status DC Magnesium Sulfate/ Dextrose 100 ml @ 100 mls/hr PRN DAILY PRN IV MAG level 2.4-3.0mg/dl Last administered on 04/11/19at 08:44; Start 04/10/19 at 20:30 Magnesium Sulfate/ Dextrose 100 ml @ 100 mls/hr PRN DAILY PRN IV MAG level 2.4-3.0mg/dl; Start 04/11/19 at 06:45; Status UNV Midazolam HCl (Versed) 2 mg 1X ONCE IV ; Start 04/10/19 at 17:00; Stop 04/10/19 at 17:01; Status DC Midazolam HCl (Versed) 5 mg 1X ONCE IV Last administered on 04/10/19at 13:15; Start 04/10/19 at 13:15; Stop 04/10/19 at 15:42; Status DC Midazolam HCl (Versed) 5 mg STK-MED ONCE .ROUTE ; Start 04/10/19 at 13:15; Stop 04/10/19 at 13:15; Status DC Midazolam HCl 50 mg/Sodium Chloride 50 ml @ 0 mls/hr CONT PRN IV PER PROTOCOL. Last administered on 04/11/19at 10:43; Start 04/10/19 at 17:00 Midazolam HCl 50 mg/Sodium Chloride 50 ml @ 1 mls/hr 1X ONCE IV Last administered on 04/10/19at 13:35; Start 04/10/19 at 13:15; Stop 04/12/19 at 15:14 Norepinephrine Bitartrate 8 mg/ Dextrose 258 ml @ 13.855 mls/ hr 1X ONCE IV Last administered on 04/10/19at 12:40; Start 04/10/19 at 12:30; Stop 04/10/19 at 12:31; Status DC Norepinephrine Bitartrate 8 mg/ Dextrose 258 ml @ 13.855 mls/ hr CONT PRN IV PER PROTOCOL Last administered on 04/10/19at 22:43; Start 04/10/19 at 22:45 Pantoprazole Sodium (PROTONIX VIAL for IV PUSH) 40 mg DAILY IVP Last administered on 04/11/19at 08:32; Start 04/10/19 at 18:00 Piperacillin Sod/ Tazobactam Sod 3.375 gm/Sodium Chloride 50 ml @ 100 mls/hr 1X ONCE IV Last administered on 04/10/19at 18:35; Start 04/10/19 at 13:45; Stop 04/10/19 at 14:14; Status DC Potassium Chloride/Water 100 ml @ 50 mls/hr 1X ONCE IV ; Start 04/10/19 at 13:15; Stop 04/10/19 at 13:16; Status DC Potassium Chloride/Water 100 ml @ 50 mls/hr PRN DAILY PRN IV K+ level less than 3.1 mEq/l; Start 04/11/19 at 02:00; Status Cancel Potassium Chloride/Water 100 ml @ 100 mls/hr 1X PRN IV K+ level 3.1-3.4mEq/L Last administered on 04/10/19at 22:16; Start 04/10/19 at 22:00; Stop 04/11/19 at 01:55; Status DC Potassium Chloride/Water 100 ml @ 100 mls/hr PRN DAILY PRN IV K+ level 3.1- 3.4mEq/L Last administered on 04/11/19at 06:50; Start 04/10/19 at 20:30 Potassium Chloride/Water 100 ml @ 100 mls/hr PRN DAILY PRN IV K+ level 3.1- 3.4mEq/L; Start 04/11/19 at 06:45; Status UNV Potassium Chloride/Water 100 ml @ 100 mls/hr PRN Q1HR PRN IV K<3.1; Start 04/11/19 at 02:00 Potassium Chloride/Water 100 ml @ 100 mls/hr Q1H IV ; Start 04/10/19 at 14:00; Stop 04/10/19 at 15:59; Status DC Propofol 100 ml @ 0 mls/hr CONT PRN IV PER PROTOCOL. Last administered on 04/10/19at 22:36; Start 04/10/19 at 17:00 Sodium Bicarbonate (Sodium Bicarb Adult 8.4% Syr) 50 meq 1X ONCE IV Last administered on 04/10/19at 17:17; Start 04/10/19 at 13:30; Stop 04/10/19 at 13:31; Status DC Sodium Chloride 1,000 ml @ 75 mls/hr [id number] IV Last administered on 04/11/19at 11:21; Start 04/11/19 at 12:00 Sodium Chloride 1,000 ml @ 150 mls/hr Q6H40M IV ; Start 04/10/19 at 13:28; Stop 04/11/19 at 00:46; Status DC Sodium Chloride 1,000 ml @ 1,000 mls/hr 1X ONCE IV Last administered on 04/10/19at 13:45; Start 04/10/19 at 13:45; Stop 04/10/19 at 14:44; Status DC Sodium Chloride 1,000 ml @ 1,000 mls/hr Q1H IV Last administered on 04/10/19at 12:20; Start 04/10/19 at 12:13; Stop 04/10/19 at 13:12; Status DC Succinylcholine Chloride (Anectine) 200 mg STK-MED ONCE .ROUTE ; Start 04/10/19 at 13:15; Stop 04/10/19 at 13:15; Status DC Vancomycin HCl 250 ml @ 250 mls/hr 1X ONCE IV ; Start 04/10/19 at 13:45; Stop 04/10/19 at 14:44; Status UNV Vancomycin HCl 1.75 gm/Sodium Chloride 500 ml @ 250 mls/hr 1X ONCE IV ; Start 04/10/19 at 14:00; Stop 04/10/19 at 15:59; Status DC Vecuronium [place] (Norcuron Bolus) 7 mg PRN Q1HR PRN IV SHIVERING Last administered on 04/11/19at 10:47; Start 04/10/19 at 17:00 Vecuronium [place] (Norcuron Bolus) 10 mg STK-MED ONCE IV ; Start 04/10/19 at 16:54; Stop 04/10/19 at 16:55; Status DC Vitals/I & O Vital Sign - Last 24 Hours 04/10/19 04/10/19 04/10/19 04/10/19 12:09 12:15 12:18 12:23 Temp 100.2 100.2 Pulse 80 80 78 76 Resp 8 8 12 12 B/P (MAP) 80/48 (59) 84/52 (63) 80/48 (59) 77/52 (60) Pulse Ox 71 71 97 88 O2 Delivery I-GEL IN PLACE; PT NOT BEING BAGGED WITH AIRWAY IN PLACE I-GEL Bag Valve Mask Bag Valve Mask 04/10/19 04/10/19 04/10/19 04/10/19 12:28 12:30 12:38 12:43 Pulse 68 46 86 Resp 20 20 20 B/P (MAP) 86/53 (64) 95/54 (68) 111/61 (78) Pulse Ox 95 100 100 100 O2 Delivery Ventilator Ventilator Ventilator Ventilator 1/16/20 1/16/20 1/16/20 1/16/20 12:47 12:51 12:56 13:01 Pulse 46 42 50 50 Resp 20 20 20 20 B/P (MAP) 102/55 (71) 102/56 (71) 103/59 (74) 111/60 (77) Pulse Ox 100 100 99 98 O2 Delivery Ventilator Ventilator Ventilator Ventilator 04/10/19 04/10/19 04/10/19 04/10/19 13:06 13:11 13:14 13:40 Pulse 52 52 60 58 Resp 20 20 20 20 B/P (MAP) 96/35 (55) 151/79 (103) 117/56 (76) 150/63 (92) Pulse Ox 97 97 94 99 O2 Delivery Ventilator Ventilator Ventilator Ventilator 04/10/19 04/10/19 04/10/19 04/10/19 13:53 13:56 13:59 16:15 Temp 97.0 Pulse 58 56 56 88 Resp 20 20 20 20 B/P (MAP) 115/67 (83) 119/65 (83) 116/58 (77) Pulse Ox 99 99 99 96 O2 Delivery Ventilator Ventilator Ventilator Ventilator 04/10/19 04/10/19 04/10/19 04/10/19 16:15 16:15 16:29 16:30 Temp 97.1 96.0 97.1 Pulse 88 82 Resp 20 20 B/P (MAP) Pulse Ox 96 100 100 O2 Delivery Ventilator Mechanical Ventilator Ventilator Ventilator 04/10/19 04/10/19 04/10/19 04/10/19 16:45 17:00 17:00 17:15 Temp 96.0 95.5 95.0 Pulse 96 88 88 78 Resp 20 20 20 20 B/P (MAP) 140/121 141/88 141/81 (101) 138/93 Pulse Ox 100 100 88 100 O2 Delivery Ventilator Ventilator Ventilator Ventilator 04/10/19 04/10/19 04/10/19 04/10/19 17:16 17:30 17:45 18:00 Temp 94.6 93.8 93.5 Pulse 72 66 60 Resp 20 20 20 20 B/P (MAP) 140/104 175/108 116/72 Pulse Ox 100 100 100 100 O2 Delivery Ventilator Ventilator Ventilator Ventilator 04/10/19 04/10/19 04/10/1904/10/20 18:00 18:15 19:00 20:00 Temp 93.0 Pulse 60 56 46 44 Resp 20 20 B/P (MAP) 116/72 (87) 118/74 126/58 (80) 108/60 (76) Pulse Ox 100 98 100 100 O2 Delivery Ventilator Ventilator Ventilator Ventilator 04/10/19 04/10/19 04/10/19 04/10/19 20:00 20:00 21:00 21:00 Temp 92.0 91.8 B/P (MAP) Pulse Ox 100 O2 Delivery Ventilator Mechanical Ventilator Ventilator Ventilator 04/10/19 04/10/19 04/10/19 04/10/19 21:16 22:00 22:00 23:00 Temp 90.0 Pulse 52 50 Resp 20 B/P (MAP) 98/62 (74) 116/66 (83) Pulse Ox 92 100 100 O2 Delivery Ventilator Ventilator Ventilator Ventilator 04/10/19 04/10/19 04/10/19 04/11/19 23:00 23:22 23:59 00:00 Temp 90.6 91.4 B/P (MAP) Pulse Ox 100 O2 Delivery Ventilator Ventilator Mechanical Ventilator Ventilator 04/11/19 04/11/19 04/11/19 04/11/19 00:00 01:00 01:00 01:38 Temp 91.4 91.6 91.4 Pulse 48 48 Resp 20 18 B/P (MAP) 110/48 (68) 92/46 (61) Pulse Ox 100 100 100 O2 Delivery Ventilator Ventilator Ventilator Ventilator 04/11/19 04/11/19 04/11/19 04/11/19 02:00 02:00 03:00 03:00 Temp 92.0 92.9 Pulse 51 50 Resp 16 16 B/P (MAP) 99/57 (71) 102/48 (66) Pulse Ox 100 100 O2 Delivery Ventilator Ventilator Ventilator Ventilator 04/11/19 04/11/19 04/11/19 04/11/19 03:07 03:14 03:37 04:00 Temp 92.5 B/P (MAP) Pulse Ox 100 100 100 O2 Delivery Ventilator Ventilator Ventilator 04/11/19 04/11/19 04/11/19 04/11/19 04:00 04:00 05:00 05:00 Temp 91.3 92.4 91.3 Pulse 45 42 Resp 14 14 B/P (MAP) 126/64 (84) 114/54 (74) Pulse Ox 100 100 O2 Delivery Ventilator Mechanical Ventilator Ventilator Ventilator 04/11/19 04/11/19 04/11/19 04/11/19 06:00 06:00 07:00 07:00 Temp 91.5 89.6 Pulse 40 38 Resp 14 14 B/P (MAP) 100/50 (67) 96/50 (65) Pulse Ox 100 100 O2 Delivery Ventilator Ventilator Ventilator Ventilator 04/11/19 04/11/19 04/11/19 04/11/19 07:17 08:00 08:00 08:00 Temp 89.2 89.2 89.2 Pulse 38 Resp 20 B/P (MAP) 94/54 (67) Pulse Ox 99 100 O2 Delivery Ventilator Mechanical Ventilator Ventilator Ventilator 04/11/19 04/11/19 04/11/19 04/11/19 08:45 08:59 09:00 09:00 Temp 88.9 89.2 89.2 88.9 89.2 Pulse 78 38 Resp 20 20 B/P (MAP) 78/48 (58) 76/44 (55) Pulse Ox 100 100 100 O2 Delivery Ventilator Ventilator Ventilator Ventilator 04/11/19 04/11/19 04/11/19 04/11/19 09:30 09:45 10:00 10:00 Temp 89.2 89.6 89.6 89.6 89.2 89.6 89.6 Pulse 86 52 40 Resp 20 20 20 B/P (MAP) 86/46 (59) 136/36 (69) 102/44 (63) Pulse Ox 100 100 100 O2 Delivery Ventilator Ventilator Ventilator Ventilator 04/11/19 04/11/19 04/11/19 04/11/19 10:30 10:41 10:45 11:00 Temp 90.3 91.0 91.4 90.3 91.0 91.4 Pulse 52 56 46 Resp 20 20 20 20 B/P (MAP) 110/42 (64) 116/44 (68) 138/52 (80) Pulse Ox 97 100 97 98 O2 Delivery Ventilator Ventilator Ventilator Ventilator 04/11/19 04/11/19 04/11/19 11:00 11:06 11:20 Temp 91.4 Resp 20 B/P (MAP) Pulse Ox 100 100 O2 Delivery Ventilator Ventilator Ventilator Intake and Output 04/10/19 04/10/19 04/11/19 15:00 23:00 07:00 Intake Total 1000 ml 1019 ml Output Total 540 ml 340 ml Balance 1000 ml -540 ml 679 ml MATTHEW SPAIN MD Apr 11, 2019 12:03
[2019-04-11 12:07] LABS: BILIRUBIN,URINE NEGATIVE (NEG); CLARITY,URINE CLEAR; COLOR,URINE YELLOW; NITRITE,URINE NEGATIVE (NEG); PROTEIN,URINE NEGATIVE (NEG-TRACE); UROBILINOGEN,URINE 0.2 mg/dL (0.2 mg/dL)
[2019-04-11 12:14] LABS: BARBITURATES NEG (NEG); BENZODIAZEPINES POS (NEG); CANNABINOIDS NEG (NEG); COCAINE NEG (NEG); METHADONE NEG (NEG); OPIATES NEG (NEG); PHENCYCLIDINE NEG (NEG)
--- NOTE | 2019-04-11 12:16 | CARD ---
MR#: [id number] Date of Study: 04/11/2019 Ordering Physician: JUAN J GONZALEZ, Referring Physician: JUAN J GONZALEZ, Tech: Katelin Solis [facility] APPROVED REPORT EXAM: Two-dimensional and M-mode echocardiogram with Doppler and color Doppler. Other Information Quality : Good INDICATION Acute Coronary Syndrome, Ventricular Tachycardia 2D DIMENSIONS RVDd2.8 (2.9-3.5cm)Left Atrium(2D)2.0 (1.6-4.0cm) IVSd1.3 (0.7-1.1cm)Aortic Root(2D)2.4 (2.0-3.7cm) LVDd3.7 (3.9-5.9cm)LVOT Diameter2.0 (1.8-2.4cm) PWd1.1 (0.7-1.1cm)LVDs2.8 (2.5-4.0cm) FS (%) 23.1 %SV27.2 ml LVEF(%)47.1 (>50%) Aortic Valve AoV Peak Mychal.87.2cm/sAoV VTI16.7cm AO Peak GR.3.0mmHgLVOT VTI 11.17cm AO Mean GR.1mmHgAVA (VTI)2.00cm2 Mitral Valve MV E Fboxfqnm85.8cm/sMV DECEL [id number] MV A Pqvsejuv44.9cm/sE/A Ratio2.6 TDI Lateral E' P. V4.70cm/sMedial E' P. V5.79cm/s E/Lateral E'13.1E/Medial E'10.7 Tricuspid Valve TR P. [id number]/sRAP [id number] TR Peak Gr.[id number] LEFT VENTRICLE The left ventricle is normal size. There is mild asymmetric septal hypertrophy. Left ventricle systol ic function is normal. The Ejection Fraction is 50-55%. Septal motion consistent with conduction abno rmality. RIGHT VENTRICLE The right ventricle is normal size. The right ventricular systolic function is normal. ATRIA The left atrium size is normal. The right atrium size is normal. The interatrial septum is intact wit h no evidence for an atrial septal defect or patent foramen ovale as noted on 2-D or Doppler imaging. AORTIC VALVE The aortic valve is calcified but opens well. Doppler and Color Flow revealed no significant aortic r egurgitation. There is no significant aortic valvular stenosis. MITRAL VALVE The mitral valve is normal in structure and function. Mitral annular calcification is mild. There is no evidence of mitral valve prolapse. There is no mitral valve stenosis. Doppler and Color Flow revea led no mitral valve regurgitation noted. TRICUSPID VALVE The tricuspid valve is normal in structure and function. Doppler and Color Flow revealed trace tricus pid regurgitation. The PA pressure was estimated at 24 mmHg. There is no tricuspid valve stenosis. PULMONIC VALVE The pulmonic valve is not well visualized. Doppler and Color Flow revealed no pulmonic valvular regur gitation. There is no pulmonic valvular stenosis. GREAT VESSELS The aortic root is normal in size. The ascending aorta is not well seen. The IVC is normal in size an d collapses >50% with inspiration. PERICARDIAL EFFUSION There is no evidence of significant pericardial effusion. Critical Notification Critical Value: No <Conclusion> Left ventricle systolic function is normal. The Ejection Fraction is 50-55%. Septal motion consistent with conduction abnormality. Doppler and Color Flow revealed trace tricuspid regurgitation. The PA pressure was estimated at 24 mmHg. There is no evidence of significant pericardial effusion. Signed by : Levar Teran, Electronically Approved : 04/11/2019 12:16:21
[2019-04-11 12:18] LABS: AMPHETAMINE/METHAMPHETAMINE NEG (NEG)
[2019-04-11 12:34] LABS: BACTERIA,URINE 0 /HPF (0-FEW); SQUAMOUS EPITHELIAL CELL,UR OCC /LPF; WBC,URINE OCC /HPF (0-4)
[2019-04-11 12:53] LABS: HEMATOCRIT 34.7 % (36.0-47.0); HEMOGLOBIN 11.4 g/dL (12.0-15.5); RED BLOOD COUNT 3.91 x10^6/uL (3.50-5.40); WHITE BLOOD COUNT 17.3 x10^3/uL (4.0-11.0)
[2019-04-11 13:11] LABS: PROTHROMBIN TIME PATIENT 17.2 SEC (11.7-14.0)
[2019-04-11 13:17] LABS: CALCIUM 6.3 mg/dL (8.5-10.1); CREATININE 0.6 mg/dL (0.6-1.0); MAGNESIUM 2.2 mg/dL (1.8-2.4); PHOSPHORUS 1.8 mg/dL (2.6-4.7)
[2019-04-11 13:24] LABS: POTASSIUM 2.7 mmol/L (3.5-5.1)
--- NOTE | 2019-04-11 13:54 | NUR ---
Critical K 2.7 called at 1320. Hypothermia protocol. Dr Sun called, orders to hold all electrolyte replacements 6 hours prior to rewarming. Patient to start rewarming phase at 1815
--- NOTE | 2019-04-11 15:31 | PDOC2 ---
NEUROLOGY CONSULT Date of Admission Date of Admission DATE: 04/11/19 TIME: 15:14 Reason for Consult Reason for Consult: IMPRESSION: Cardiopulmonary arrest, down time estimated 8-10 minutes. Hypoxia/anoxia encephalopathy. Metabolic encephalopathy. VT Cardiac shock. Respiratory failure. Pulmonary edema. Pulmonary interstitial infiltrate. Lactic acidosis. Hypokalemia, K+ 2.9 Hyperglycemia, glucose 300. DM. HTN. HLD. RECOMMENDATIONS/PLAN: Life support in ICU. HCT performed, ICH, IPH and SAH ruled out. Hypothermia protocol. Monitoring vitals. Consulted Cardiology. Treat medical diseases. Lab: see orders. EEG after warming up. HISTORY OF THE PRESENT ILLNESS: This is a 58 -year-old female patient with history of hypertension, HLD and arthritis who had cardiopulmonary arrest was brought into the ER of [facility] by EMS after CPR. The patient friend stated they went to [facility] this morning then went to [facility]. Patient ran to the parking lot to get her knutson but had dizziness after returning inside of [facility] then became unresponsive. After 5-6 minutes patient stopped breath and EMS was called and arrived to the scene after 2 minutes. She was revealed ventricular tachycardia and received shocks 2 times, Epinephrine was administrated to get pulses return. PAST MEDICAL HISTORY Cardiovascular: HTN, Hyperlipidemia Pulmonary: No pertinent hx CENTRAL NERVOUS SYSTEM: Other (No pertinent history) GI: No pertinent hx Heme/Onc: No pertinent hx Hepatobiliary: No pertinent hx Psych: No pertinent hx Musculoskeletal: Osteoarthritis Rheumatologic: No pertinent hx Infectious disease: No pertinent hx ENT: Sincusitis Renal/: No pertinent hx Endocrine: No pertinent hx Dermatology: No pertinent hx PAST SURGICAL HISTORY Appendectomy, Hysterectomy FAMILY HISTORY Coronary Artery Disease (mother and father) SOCIAL HISTORY Smoke: No ALCOHOL: none Drugs: None Lives: with Family ALLERGIES No Known Drug Allergies (Unverified , 04/10/19) MEDICATIONS: Refer to [facility] REVIEW OF SYSTEMS: Constitutional: No malnutrition, weight loss, cachexia. Head: No traumatic brain or head injury. Skin: No edema, or rash. Ear: No infection. Eyes: No vision loss or color blindness. Nose: No bleeding or purulent discharges. Hearing: No hearing decrease. Neck: No injury. Breast: No history of cancer, masses,or discharges. Cardiac: HTN, HLD. Pulmonary: No COPD. GI: No GI ulcer, GI bleeding. Urinary/genital: No dysuria, incontinence, urinary retention. Endocrinologic: Diabetes Mellitus? Skeletomuscular: No muscular atrophy, deformity. Neurological: see HP. Psychiatric: Denies drug use/abuse. Otherwise, not -gnfjk review of systems. PHYSICAL EXAMINATION: General appearance is in acute distress. HEENT: Normocephalic and nontraumatic. Eyes, nose, ears, and throat are unremarkable. Neck is supple. No lymphadenopathy. No crepitus. Cardiovascular: S1, S2, seemed regular rate and rhythm. Pulmonary: On vent. Abdomen: Bowel sounds are weak. Extremities: No rash, lesions, or edema. NEUROLOGICAL EXAMINATION: On vent. Unresponsive. Not oriented to time, place and person. PERRL. EOMI not elicited. CN: no focal findings. Muscle tone: Decreased. Muscle strength: No movements observed. DTR: 1 Plantar reflex: No response bilaterally Gait: not able to walk. Sensory exam: no response to stimuli. Not able to access cerebellar signs. F-T-N test not performed. Current Medications Current Medications Current Medications Norepinephrine Bitartrate 8 mg/ Dextrose 258 ml @ 13.855 mls/ hr 1X ONCE IV Last administered on 04/10/19at 12:40; Start 04/10/19 at 12:30; Stop 04/10/19 at 12:31; Status DC Amiodarone HCl 450 mg/Dextrose 259 ml @ 33 mls/hr 1X ONCE IV Last administered on 04/10/19at 12:55; Start 04/10/19 at 12:45; Stop 04/10/19 at 20:35; Status DC Sodium Chloride 1,000 ml @ 1,000 mls/hr Q1H IV Last administered on 04/10/19at 12:20; Start 04/10/19 at 12:13; Stop 04/10/19 at 13:12; Status DC Midazolam HCl 50 mg/Sodium Chloride 50 ml @ 1 mls/hr 1X ONCE IV Last administered on 04/10/19at 13:35; Start 04/10/19 at 13:15; Stop 04/11/19 at 13:55; Status DC Potassium Chloride/Water 100 ml @ 50 mls/hr 1X ONCE IV ; Start 04/10/19 at 13:15; Stop 04/10/19 at 13:16; Status DC Etomidate (Amidate) 20 mg STK-MED ONCE IV ; Start 04/10/19 at 13:14; Stop 04/10/19 at 13:14; Status DC Midazolam HCl (Versed) 5 mg STK-MED ONCE .ROUTE ; Start 04/10/19 at 13:15; Stop 04/10/19 at 13:15; Status DC Succinylcholine Chloride (Anectine) 200 mg STK-MED ONCE .ROUTE ; Start 04/10/19 at 13:15; Stop 04/10/19 at 13:15; Status DC Potassium Chloride/Water 100 ml @ 100 mls/hr Q1H IV ; Start 04/10/19 at 14:00; Stop 04/10/19 at 15:59; Status DC Sodium Bicarbonate (Sodium Bicarb Adult 8.4% Syr) 50 meq 1X ONCE IV Last administered on 04/10/19at 17:17; Start 04/10/19 at 13:30; Stop 04/10/19 at 13:31; Status DC Sodium Chloride 1,000 ml @ 150 mls/hr Q6H40M IV ; Start 04/10/19 at 13:28; Stop 04/11/19 at 00:46; Status DC Piperacillin Sod/ Tazobactam Sod 3.375 gm/Sodium Chloride 50 ml @ 100 mls/hr 1X ONCE IV Last administered on 04/10/19at 18:35; Start 04/10/19 at 13:45; Stop 04/10/19 at 14:14; Status DC Vancomycin HCl 250 ml @ 250 mls/hr 1X ONCE IV ; Start 04/10/19 at 13:45; Stop 04/10/19 at 14:44; Status UNV Sodium Chloride 1,000 ml @ 1,000 mls/hr 1X ONCE IV Last administered on 04/10/19at 13:45; Start 04/10/19 at 13:45; Stop 04/10/19 at 14:44; Status DC Vancomycin HCl 1.75 gm/Sodium Chloride 500 ml @ 250 mls/hr 1X ONCE IV ; Start 04/10/19 at 14:00; Stop 04/10/19 at 15:59; Status DC Iodixanol (Visipaque 320) 100 ml STK-MED ONCE .ROUTE ; Start 04/10/19 at 14:01; Stop 04/10/19 at 14:02; Status DC Heparin Sodium/ Sodium Chloride 500 ml @ As Directed STK-MED ONCE .ROUTE ; Start 04/10/19 at 14:02; Stop 04/10/19 at 14:02; Status DC Lidocaine HCl (Xylocaine-Mpf 1% 2ml Vial) 2 ml STK-MED ONCE .ROUTE ; Start 04/10/19 at 14:02; Stop 04/10/19 at 14:02; Status DC Lidocaine HCl (Lidocaine 1% 20ml Vial) 20 ml STK-MED ONCE .ROUTE ; Start 04/10/19 at 14:03; Stop 04/10/19 at 14:04; Status DC Heparin Sodium (Porcine) (Heparin Sodium) 10,000 unit STK-MED ONCE .ROUTE ; Start 04/10/19 at 15:16; Stop 04/10/19 at 15:16; Status DC Heparin Sodium/ Sodium Chloride (HEPARIN for ARTERIAL LINE FLUSH) 1,000 unit 1X ONCE IART Last administered on 04/10/19at 15:42; Start 04/10/19 at 15:30; Stop 04/10/19 at 23:39; Status DC Iodixanol (Visipaque 320) 104 ml 1X ONCE IART Last administered on 04/10/19at 15:42; Start 04/10/19 at 15:30; Stop 04/10/19 at 23:39; Status DC Heparin Sodium (Porcine) (Heparin Sodium) 4,000 unit 1X ONCE IV Last administered on 04/10/19at 15:42; Start 04/10/19 at 15:30; Stop 04/10/19 at 23:39; Status DC Lidocaine HCl (Lidocaine 1% 20ml Vial) 20 ml 1X ONCE INJ Last administered on 04/10/19at 15:42; Start 04/10/19 at 15:30; Stop 04/10/19 at 23:39; Status DC Atropine Sulfate (ATROPINE 1mg SYRINGE) 1 mg 1X ONCE IV Last administered on 04/10/19at 12:42; Start 04/10/19 at 12:42; Stop 04/10/19 at 15:42; Status DC Midazolam HCl (Versed) 5 mg 1X ONCE IV Last administered on 04/10/19at 13:15; Start 04/10/19 at 13:15; Stop 04/10/19 at 15:42; Status DC Vecuronium [place] (Norcuron Bolus) 10 mg STK-MED ONCE IV ; Start 04/10/19 at 16:54; Stop 04/10/19 at 16:55; Status DC Fentanyl Citrate (Fentanyl 2ml Vial) 100 mcg STK-MED ONCE .ROUTE ; Start 04/10/19 at 16:55; Stop 04/10/19 at 16:56; Status DC Fentanyl Citrate (Fentanyl 2ml Vial) 100 mcg 1X ONCE IV Last administered on 04/10/19at 17:16; Start 04/10/19 at 17:00; Stop 04/10/19 at 17:01; Status DC Midazolam HCl (Versed) 2 mg 1X ONCE IV ; Start 04/10/19 at 17:00; Stop 04/10/19 at 17:01; Status DC Magnesium Sulfate/ Dextrose 100 ml @ 100 mls/hr 1X ONCE IV Last administered on 04/10/19at 17:16; Start 04/10/19 at 18:00; Stop 04/10/19 at 18:59; Status DC Buspirone HCl (Buspar) 30 mg Q8HRS NG Last administered on 04/11/19at 13:34; Start 04/10/19 at 17:00; Stop 04/12/19 at 06:01 Acetaminophen (Tylenol) 650 mg Q4H NG Last administered on 04/11/19at 12:53; Start 04/10/19 at 17:00 Artificial Tears (Artificial Tears) 1 drop Q6HRS OU Last administered on 04/11/19at 08:32; Start 04/10/19 at 18:00 Artificial Tears (Artificial Tears) 1 drop PRN Q15MIN PRN OU DRY EYE; Start 04/10/19 at 17:00 Heparin Sodium (Porcine) (Heparin Sodium) 5,000 unit BID SQ ; Start 04/10/19 at 21:00; Status Cancel Pantoprazole Sodium (PROTONIX VIAL for IV PUSH) 40 mg DAILY IVP Last administered on 04/11/19at 08:32; Start 04/10/19 at 18:00 Fentanyl Citrate 30 ml @ 0 mls/hr CONT PRN IV PER PROTOCOL. Last administered on 04/11/19at 10:41; Start 04/10/19 at 17:00 Propofol 100 ml @ 0 mls/hr CONT PRN IV PER PROTOCOL. Last administered on 04/10/19at 22:36; Start 04/10/19 at 17:00 Midazolam HCl 50 mg/Sodium Chloride 50 ml @ 0 mls/hr CONT PRN IV PER PROTOCOL. Last administered on 04/11/19at 14:06; Start 04/10/19 at 17:00 Vecuronium [place] (Norcuron Bolus) 7 mg PRN Q1HR PRN IV SHIVERING Last administered on 04/11/19at 10:47; Start 04/10/19 at 17:00 Heparin Sodium/ Dextrose 250 ml @ 0 mls/hr CONT PRN IV PER PROTOCOL; Start 04/10/19 at 17:30; Stop 04/10/19 at 23:42; Status DC Heparin Sodium (Porcine) (Heparin Sodium) 2,150 unit PRN Q6HRS PRN IV FOR UFH LEVEL LESS THAN 0.2; Start 04/10/19 at 17:30; Stop 04/10/19 at 23:39; Status DC Heparin Sodium (Porcine) (Heparin Sodium) 1,050 unit PRN Q6HRS PRN IV FOR UFH LEVEL 0.2 - 0.29; Start 04/10/19 at 17:30; Stop 04/10/19 at 23:39; Status DC Hydralazine HCl (Apresoline Inj) 10 mg PRN Q6HRS PRN IVP ELEVATED BP, SEE COMMENTS; Start 04/10/19 at 18:00 Hydralazine HCl (Apresoline Inj) 20 mg STK-MED ONCE .ROUTE ; Start 04/10/19 at 17:56; Stop 04/10/19 at 17:56; Status DC Iohexol (Omnipaque 350 Mg/ml) 75 ml 1X ONCE IV Last administered on 04/10/19at 18:45; Start 04/10/19 at 18:45; Stop 04/10/19 at 18:46; Status DC Insulin Human Regular 100 unit/ Sodium Chloride 101 ml @ 0 mls/hr CONT PRN IV S EE I/O RECORD Last administered on 04/11/19at 10:23; Start 04/10/19 at 19:30 Magnesium Sulfate/ Dextrose 100 ml @ 100 mls/hr PRN DAILY PRN IV MAG level 2.4-3.0mg/dl Last administered on 04/11/19at 08:44; Start 04/10/19 at 20:30 Potassium Chloride/Water 100 ml @ 100 mls/hr PRN DAILY PRN IV K+ level 3.1- 3.4mEq/L Last administered on 04/11/19at 06:50; Start 04/10/19 at 20:30 Magnesium Sulfate/ Dextrose 100 ml @ 100 mls/hr 1X PRN IV MAG level 2.4- 3.0mg/dl Last administered on 04/10/19at 22:17; Start 04/10/19 at 22:00; Stop 04/11/19 at 01:56; Status DC Potassium Chloride/Water 100 ml @ 100 mls/hr 1X PRN IV K+ level 3.1-3.4mEq/L Last administered on 04/10/19at 22:16; Start 04/10/19 at 22:00; Stop 04/11/19 at 01:55; Status DC Norepinephrine Bitartrate 8 mg/ Dextrose 258 ml @ 13.855 mls/ hr CONT PRN IV PER PROTOCOL Last administered on 04/10/19at 22:43; Start 04/10/19 at 22:45 Heparin Sodium/ Dextrose 250 ml @ 0 mls/hr CONT PRN IV PER PROTOCOL Last administered on 04/11/19at 00:43; Start 04/10/19 at 23:45; Stop 04/11/19 at 09:36; Status DC Heparin Sodium (Porcine) (Heparin Sodium) 1,800 unit PRN Q6HRS PRN IV FOR UFH LEVEL LESS THAN 0.2; Start 04/10/19 at 23:45; Stop 04/11/19 at 09:54; Status DC Amiodarone HCl 450 mg/Dextrose 259 ml @ 0 mls/hr CONT PRN IV SEE I/O RECORD Last administered on 04/11/19at 03:42; Start 04/11/19 at 00:00 Dextrose/Sodium Chloride 1,000 ml @ 75 mls/hr [id number] IV Last administered on 04/11/19at 01:57; Start 04/11/19 at 01:00; Stop 04/11/19 at 10:53; Status DC Potassium Chloride/Water 100 ml @ 50 mls/hr PRN DAILY PRN IV K+ level less than 3.1 mEq/l; Start 04/11/19 at 02:00; Status Cancel Potassium Chloride/Water 100 ml @ 100 mls/hr PRN Q1HR PRN IV K<3.1; Start 04/11/19 at 02:00 Magnesium Sulfate/ Dextrose 100 ml @ 100 mls/hr PRN DAILY PRN IV MAG level 2.4-3.0mg/dl; Start 04/11/19 at 06:45; Status UNV Potassium Chloride/Water 100 ml @ 100 mls/hr PRN DAILY PRN IV K+ level 3.1- 3.4mEq/L; Start 04/11/19 at 06:45; Status UNV Atropine Sulfate (ATROPINE 0.5mg SYRINGE) 0.25 mg 1X ONCE IM ; Start 04/11/19 at 09:45; Stop 04/11/19 at 09:38; Status DC Atropine Sulfate (ATROPINE 1mg SYRINGE) 0.25 mg 1X ONCE IM Last administered on 04/11/19at 09:55; Start 04/11/19 at 09:45; Stop 04/11/19 at 09:46; Status DC Dopamine HCl/ Dextrose 250 ml @ 6.676 mls/ hr CONT PRN IV SEE I/O RECORD Last administered on 04/11/19at 09:55; Start 04/11/19 at 10:00 Sodium Chloride 1,000 ml @ 75 mls/hr [id number] IV Last administered on 04/11/19at 11:21; Start 04/11/19 at 12:00 Heparin Sodium (Porcine) (Heparin Sodium) 5,000 unit BID SQ ; Start 04/11/19 at 21:00 Active Scripts Active Reported Celebrex (Celecoxib) 100 Mg Capsule 1 Cap PO BID Verapamil Er (Verapamil Hcl) 240 Mg Cap24h.pel 1 Cap PO DAILY Allergies Allergies: Allergies Coded Allergies Type Severity Reaction Last Updated Verified No Known Drug Allergies 04/10/19 No ROS Review of System The patient denies any associated fevers, chills, headache, ear pain, rhinorrhea, sore throat, stiff neck, productive cough, chest pain, shortness of breath, back or flank pain, abdominal pain, nausea, vomiting, diarrhea, constipation, dysuria, rash, numbness, weakness, tingling, incontinence, di fficulty ambulating, or diaphoresis. Physical Exam Physical Exam General: Well developed, well nourished, no acute distress, well appearing HEENT: Pupils equally round and reactive to light, EOMI, no discharge, normal conjunctiva Neck: Supple, no nuchal rigidity, no JVD, trachea midline, no tenderness Cardiac: RRR, no murmurs, no gallops, no rubs Chest/Lungs: CTAB, no wheeze, no rhonchi, no crackles Abdomen: soft, non-distended, no guarding, no peritoneal signs, non-tender Back: No tenderness Extremities: no edema, pulses intact, non-tender,capillary refill <3 sec bilateral upper and lower extremities, Neuro: Alert and oriented x 4, no focal deficits, normal speech Vitals Vitals: Vital Signs Date Time Temp Pulse Resp B/P (MAP) Pulse Ox O2 Delivery O2 Flow Rate FiO2 04/11/19 15:00 90.5 43 20 97/46 (63) 100 Ventilator 90.5 Labs Labs Laboratory Tests Test 04/10/19 12:20 04/10/19 12:26 04/10/19 12:31 04/10/19 12:35 White Blood Count 8.7 x10^3/uL (4.0-11.0) Red Blood Count 5.01 x10^6/uL (3.50-5.40) Hemoglobin 15.0 g/dL (12.0-15.5) Hematocrit 45.9 % (36.0-47.0) Mean Corpuscular Volume 92 fL (79-100) Mean Corpuscular Hemoglobin 30 pg (25-35) Mean Corpuscular Hemoglobin Concent 33 g/dL (31-37) Red Cell Distribution Width 12.9 % (11.5-14.5) Platelet Count 176 x10^3/uL (140-400) Neutrophils (%) (Auto) 47 % (31-73) Lymphocytes (%) (Auto) 50 % (24-48) Monocytes (%) (Auto) 2 % (0-9) Eosinophils (%) (Auto) 0 % (0-3) Basophils (%) (Auto) 0 % (0-3) Neutrophils # (Auto) 4.1 x10^3/uL (1.8-7.7) Lymphocytes # (Auto) 4.4 x10^3/uL (1.0-4.8) Monocytes # (Auto) 0.2 x10^3/uL (0.0-1.1) Eosinophils # (Auto) 0.0 x10^3/uL (0.0-0.7) Basophils # (Auto) 0.0 x10^3/uL (0.0-0.2) Segmented Neutrophils % 40 % (35-66) Band Neutrophils % 2 % (0-9) Lymphocytes % 54 % (24-48) Monocytes % 3 % (0-10) Eosinophils % 1 % (0-5) Platelet Estimate Adequate (ADEQUATE) Platelet Clumps, EDTA Present Sodium Level 140 mmol/L (136-145) Potassium Level 3.6 mmol/L (3.5-5.1) Chloride Level 103 mmol/L (98-107) Carbon Dioxide Level 20 mmol/L (21-32) Anion Gap 17 (6-14) 14 mmol/L (6-14) Blood Urea Nitrogen 19 mg/dL (7-20) Creatinine 1.2 mg/dL (0.6-1.0) Estimated GFR (Cockcroft-Gault) 45.8 BUN/Creatinine Ratio 16 (6-20) Glucose Level 300 mg/dL (70-99) 288 mg/dL (70-99) Hemoglobin A1c 5.7 % (4.8-5.6) Lactic Acid Level 9.0 mmol/L (0.4-2.0) Calcium Level 9.4 mg/dL (8.5-10.1) Magnesium Level 2.5 mg/dL (1.8-2.4) Total Bilirubin 0.4 mg/dL (0.2-1.0) Aspartate Amino Transf (AST/SGOT) 128 U/L (15-37) Alanine Aminotransferase (ALT/SGPT) 135 U/L (14-59) Alkaline Phosphatase 83 U/L (46-116) Creatine Kinase 194 U/L (26-192) Troponin I Quantitative 0.633 ng/mL (0.000-0.055) QU-Ssq-O-Type Natriuretic Peptide 409 pg/mL (0-124) Total Protein 6.8 g/dL (6.4-8.2) Albumin 3.4 g/dL (3.4-5.0) Albumin/Globulin Ratio 1.0 (1.0-1.7) Triglycerides Level 83 mg/dL (0-150) Cholesterol Level 168 mg/dL (0-200) LDL Cholesterol, Calculated 92 mg/dL (0-100) VLDL Cholesterol, Calculated 17 mg/dL (0-40) Non-HDL Cholesterol Calculated 109 mg/dL (0-129) HDL Cholesterol 59 mg/dL (40-60) Cholesterol/HDL Ratio 2.8 Lipase 534 U/L (73-393) Thyroid Stimulating Hormone (TSH) 3.367 uIU/mL (0.358-3.74) Glucose (Fingerstick) 269 mg/dL (70-99) Bedside Troponin I 0.37 ng/ml (<0.08) Bedside Hemoglobin 16.0 g/dL (12-15) Bedside Hematocrit 47 % (36-40) Bedside Sodium 139 mmol/L (135-145) Bedside Potassium 3.4 mmol/L (3.5-5.0) Bedside Chloride 106 mmol/L (98-110) Bedside Total CO2 22 mmol/L (23-32) Bedside Blood Urea Nitrogen 21 mg/dL (8-26) Bedside Creatinine 1.1 mg/dL (0.5-1.4) Bedside Ionized Calcium (Kayleigh) 1.22 mmol/L (1.13-1.32) Test 04/10/19 12:57 04/10/19 12:59 04/10/19 13:40 04/10/19 16:05 Prothrombin Time 18.8 SEC (11.7-14.0) Prothromb Time International Ratio 1.6 (0.8-1.1) D-Dimer (Annabelle) > 20.00 ug/mlFEU O2 Saturation 96 % (92-99) Arterial Blood pH 7.18 (7.35-7.45) Arterial Blood pCO2 at Patient Temp 38 mmHg (35-46) Arterial Blood pO2 at Patient Temp 103 mmHg (65-108) Arterial Blood HCO3 14 mmol/L (21-28) Arterial Blood Base Excess -14 mmol/L (-3-3) FiO2 100 Influenza Type A Antigen Negative (NEGATIVE) Influenza Type B Antigen Negative (NEGATIVE) Lactic Acid Level 3.9 mmol/L (0.4-2.0) Test 04/10/19 17:40 04/10/19 18:47 04/10/19 19:23 04/10/19 21:26 O2 Saturation 99 % (92-99) Arterial Blood pH 7.37 (7.35-7.45) Arterial Blood pCO2 at Patient Temp 39 mmHg (35-46) Arterial Blood pO2 at Patient Temp 329 mmHg (65-108) Arterial Blood HCO3 22 mmol/L (21-28) Arterial Blood Base Excess -3 mmol/L (-3-3) FiO2 100 Glucose (Fingerstick) 230 mg/dL (70-99) 208 mg/dL (70-99) Prothrombin Time 17.9 SEC (11.7-14.0) Prothromb Time International Ratio 1.5 (0.8-1.1) Activated Partial Thromboplast Time 53 SEC (24-38) Sodium Level 140 mmol/L (136-145) Potassium Level 3.1 mmol/L (3.5-5.1) Chloride Level 108 mmol/L (98-107) Carbon Dioxide Level 21 mmol/L (21-32) Anion Gap 11 (6-14) Blood Urea Nitrogen 28 mg/dL (7-20) Creatinine 0.9 mg/dL (0.6-1.0) Estimated GFR (Cockcroft-Gault) 63.9 Glucose Level 261 mg/dL (70-99) Calcium Level 7.9 mg/dL (8.5-10.1) Ionized Calcium 1.15 mmol/L (1.13-1.32) Phosphorus Level 3.7 mg/dL (2.6-4.7) Magnesium Level 2.8 mg/dL (1.8-2.4) Test 04/10/19 22:14 04/10/19 23:25 04/11/19 00:23 04/11/19 01:10 Glucose (Fingerstick) 202 mg/dL (70-99) 127 mg/dL (70-99) 134 mg/dL (70-99) Prothrombin Time 16.6 SEC (11.7-14.0) Prothromb Time International Ratio 1.4 (0.8-1.1) Activated Partial Thromboplast Time 41 SEC (24-38) Sodium Level 139 mmol/L (136-145) Potassium Level 2.9 mmol/L (3.5-5.1) Chloride Level 108 mmol/L (98-107) Carbon Dioxide Level 19 mmol/L (21-32) Anion Gap 12 (6-14) Blood Urea Nitrogen 30 mg/dL (7-20) Creatinine 1.0 mg/dL (0.6-1.0) Estimated GFR (Cockcroft-Gault) 56.6 Glucose Level 118 mg/dL (70-99) Calcium Level 8.2 mg/dL (8.5-10.1) Ionized Calcium 1.21 mmol/L (1.13-1.32) Phosphorus Level 2.8 mg/dL (2.6-4.7) Magnesium Level 3.4 mg/dL (1.8-2.4) Test 04/11/19 01:15 04/11/19 02:11 04/11/19 03:07 04/11/19 05:20 Glucose (Fingerstick) 100 mg/dL (70-99) 110 mg/dL (70-99) 119 mg/dL (70-99) White Blood Count 18.4 x10^3/uL (4.0-11.0) Red Blood Count 4.46 x10^6/uL (3.50-5.40) Hemoglobin 13.0 g/dL (12.0-15.5) Hematocrit 39.7 % (36.0-47.0) Mean Corpuscular Volume 89 fL (79-100) Mean Corpuscular Hemoglobin 29 pg (25-35) Mean Corpuscular Hemoglobin Concent 33 g/dL (31-37) Red Cell Distribution Width 13.0 % (11.5-14.5) Platelet Count 186 x10^3/uL (140-400) Neutrophils (%) (Auto) 90 % (31-73) Lymphocytes (%) (Auto) 6 % (24-48) Monocytes (%) (Auto) 4 % (0-9) Eosinophils (%) (Auto) 0 % (0-3) Basophils (%) (Auto) 0 % (0-3) Neutrophils # (Auto) 16.6 x10^3/uL (1.8-7.7) Lymphocytes # (Auto) 1.1 x10^3/uL (1.0-4.8) Monocytes # (Auto) 0.7 x10^3/uL (0.0-1.1) Eosinophils # (Auto) 0.0 x10^3/uL (0.0-0.7) Basophils # (Auto) 0.0 x10^3/uL (0.0-0.2) Segmented Neutrophils % 73 % (35-66) Band Neutrophils % 18 % (0-9) Lymphocytes % 3 % (24-48) Monocytes % 6 % (0-10) Platelet Estimate Adequate (ADEQUATE) Prothrombin Time 16.2 SEC (11.7-14.0) Prothromb Time International Ratio 1.3 (0.8-1.1) Activated Partial Thromboplast Time 47 SEC (24-38) Heparin Anti-Xa Act, Unfractionated 0.87 IU/mL (0.30-0.70) Sodium Level 138 mmol/L (136-145) Potassium Level 3.1 mmol/L (3.5-5.1) Chloride Level 108 mmol/L (98-107) Carbon Dioxide Level 18 mmol/L (21-32) Anion Gap 12 (6-14) Blood Urea Nitrogen 32 mg/dL (7-20) Creatinine 0.9 mg/dL (0.6-1.0) Estimated GFR (Cockcroft-Gault) 63.9 Glucose Level 180 mg/dL (70-99) Calcium Level 7.9 mg/dL (8.5-10.1) Ionized Calcium 1.20 mmol/L (1.13-1.32) Phosphorus Level 3.5 mg/dL (2.6-4.7) Magnesium Level 2.8 mg/dL (1.8-2.4) Test 04/11/19 05:25 04/11/19 07:50 04/11/19 08:19 04/11/19 10:02 Glucose (Fingerstick) 157 mg/dL (70-99) 202 mg/dL (70-99) 190 mg/dL (70-99) O2 Saturation 98 % (92-99) Arterial Blood pH 7.18 (7.35-7.45) Arterial Blood pH (Temp corrected) 7.25 Arterial Blood pCO2 at Patient Temp 45 mmHg (35-46) Arterial Blood pCO2 (Temp correct) 36 mmHg Arterial Blood pO2 at Patient Temp 136 mmHg (65-108) Arterial Blood pO2 (Temp corrected) 108 mmHg Arterial Blood HCO3 16 mmol/L (21-28) Arterial Blood Base Excess -12 mmol/L (-3-3) Test 04/11/19 11:22 04/11/19 11:40 04/11/19 12:26 04/11/19 13:37 Glucose (Fingerstick) 163 mg/dL (70-99) 129 mg/dL (70-99) 134 mg/dL (70-99) White Blood Count 17.3 x10^3/uL (4.0-11.0) Red Blood Count 3.91 x10^6/uL (3.50-5.40) Hemoglobin 11.4 g/dL (12.0-15.5) Hematocrit 34.7 % (36.0-47.0) Mean Corpuscular Volume 89 fL (79-100) Mean Corpuscular Hemoglobin 29 pg (25-35) Mean Corpuscular Hemoglobin Concent 33 g/dL (31-37) Red Cell Distribution Width 13.0 % (11.5-14.5) Platelet Count 157 x10^3/uL (140-400) Prothrombin Time 17.2 SEC (11.7-14.0) Prothromb Time International Ratio 1.4 (0.8-1.1) Activated Partial Thromboplast Time 127 SEC (24-38) Urine Collection Type Unknown Urine Color Yellow Urine Clarity Clear Urine pH 5.0 Urine Specific [place] 1.025 Urine Protein Negative mg/dL (NEG-TRACE) Urine Glucose (UA) 100 mg/dL (NEG) Urine Ketones (Stick) Negative mg/dL (NEG) Urine Blood Small (NEG) Urine Nitrite Negative (NEG) Urine Bilirubin Negative (NEG) Urine Urobilinogen Dipstick 0.2 mg/dL (0.2 mg/dL) Urine Leukocyte Esterase Negative (NEG) Urine RBC 11-20 /HPF (0-2) Urine WBC Occ /HPF (0-4) Urine Squamous Epithelial Cells Occ /LPF Urine Bacteria 0 /HPF (0-FEW) Urine Mucus Mod /LPF Sodium Level 140 mmol/L (136-145) Potassium Level 2.7 mmol/L (3.5-5.1) Chloride Level 111 mmol/L (98-107) Carbon Dioxide Level 14 mmol/L (21-32) Anion Gap 15 (6-14) Blood Urea Nitrogen 23 mg/dL (7-20) Creatinine 0.6 mg/dL (0.6-1.0) Estimated GFR (Cockcroft-Gault) 102.0 Glucose Level 133 mg/dL (70-99) Calcium Level 6.3 mg/dL (8.5-10.1) Ionized Calcium 1.01 mmol/L (1.13-1.32) Phosphorus Level 1.8 mg/dL (2.6-4.7) Magnesium Level 2.2 mg/dL (1.8-2.4) Urine Opiates Screen Neg (NEG) Urine Methadone Screen Neg (NEG) Urine Barbiturates Neg (NEG) Urine Phencyclidine Screen Neg (NEG) Urine Amphetamine/Methamphetamine Neg (NEG) Urine Benzodiazepines Screen Pos (NEG) Urine Cocaine Screen Neg (NEG) Urine Cannabinoids Screen Neg (NEG) Urine Ethyl Alcohol Neg (NEG) Test 04/11/19 14:36 Glucose (Fingerstick) 151 mg/dL (70-99) Laboratory Tests Test 04/10/19 16:05 04/10/19 17:40 04/10/19 18:47 04/10/19 19:23 Lactic Acid Level 3.9 mmol/L (0.4-2.0) O2 Saturation 99 % (92-99) Arterial Blood pH 7.37 (7.35-7.45) Arterial Blood pCO2 at Patient Temp 39 mmHg (35-46) Arterial Blood pO2 at Patient Temp 329 mmHg (65-108) Arterial Blood HCO3 22 mmol/L (21-28) Arterial Blood Base Excess -3 mmol/L (-3-3) FiO2 100 Glucose (Fingerstick) 230 mg/dL (70-99) Prothrombin Time 17.9 SEC (11.7-14.0) Prothromb Time International Ratio 1.5 (0.8-1.1) Activated Partial Thromboplast Time 53 SEC (24-38) Sodium Level 140 mmol/L (136-145) Potassium Level 3.1 mmol/L (3.5-5.1) Chloride Level 108 mmol/L (98-107) Carbon Dioxide Level 21 mmol/L (21-32) Anion Gap 11 (6-14) Blood Urea Nitrogen 28 mg/dL (7-20) Creatinine 0.9 mg/dL (0.6-1.0) Estimated GFR (Cockcroft-Gault) 63.9 Glucose Level 261 mg/dL (70-99) Calcium Level 7.9 mg/dL (8.5-10.1) Ionized Calcium 1.15 mmol/L (1.13-1.32) Phosphorus Level 3.7 mg/dL (2.6-4.7) Magnesium Level 2.8 mg/dL (1.8-2.4) Test 04/10/19 21:26 04/10/19 22:14 04/10/19 23:25 04/11/19 00:23 Glucose (Fingerstick) 208 mg/dL (70-99) 202 mg/dL (70-99) 127 mg/dL (70-99) 134 mg/dL (70-99) Test 04/11/19 01:10 04/11/19 01:15 04/11/19 02:11 04/11/19 03:07 Prothrombin Time 16.6 SEC (11.7-14.0) Prothromb Time International Ratio 1.4 (0.8-1.1) Activated Partial Thromboplast Time 41 SEC (24-38) Sodium Level 139 mmol/L (136-145) Potassium Level 2.9 mmol/L (3.5-5.1) Chloride Level 108 mmol/L (98-107) Carbon Dioxide Level 19 mmol/L (21-32) Anion Gap 12 (6-14) Blood Urea Nitrogen 30 mg/dL (7-20) Creatinine 1.0 mg/dL (0.6-1.0) Estimated GFR (Cockcroft-Gault) 56.6 Glucose Level 118 mg/dL (70-99) Calcium Level 8.2 mg/dL (8.5-10.1) Ionized Calcium 1.21 mmol/L (1.13-1.32) Phosphorus Level 2.8 mg/dL (2.6-4.7) Magnesium Level 3.4 mg/dL (1.8-2.4) Glucose (Fingerstick) 100 mg/dL (70-99) 110 mg/dL (70-99) 119 mg/dL (70-99) Test 04/11/19 05:20 04/11/19 05:25 04/11/19 07:50 04/11/19 08:19 White Blood Count 18.4 x10^3/uL (4.0-11.0) Red Blood Count 4.46 x10^6/uL (3.50-5.40) Hemoglobin 13.0 g/dL (12.0-15.5) Hematocrit 39.7 % (36.0-47.0) Mean Corpuscular Volume 89 fL (79-100) Mean Corpuscular Hemoglobin 29 pg (25-35) Mean Corpuscular Hemoglobin Concent 33 g/dL (31-37) Red Cell Distribution Width 13.0 % (11.5-14.5) Platelet Count 186 x10^3/uL (140-400) Neutrophils (%) (Auto) 90 % (31-73) Lymphocytes (%) (Auto) 6 % (24-48) Monocytes (%) (Auto) 4 % (0-9) Eosinophils (%) (Auto) 0 % (0-3) Basophils (%) (Auto) 0 % (0-3) Neutrophils # (Auto) 16.6 x10^3/uL (1.8-7.7) Lymphocytes # (Auto) 1.1 x10^3/uL (1.0-4.8) Monocytes # (Auto) 0.7 x10^3/uL (0.0-1.1) Eosinophils # (Auto) 0.0 x10^3/uL (0.0-0.7) Basophils # (Auto) 0.0 x10^3/uL (0.0-0.2) Segmented Neutrophils % 73 % (35-66) Band Neutrophils % 18 % (0-9) Lymphocytes % 3 % (24-48) Monocytes % 6 % (0-10) Platelet Estimate Adequate (ADEQUATE) Prothrombin Time 16.2 SEC (11.7-14.0) Prothromb Time International Ratio 1.3 (0.8-1.1) Activated Partial Thromboplast Time 47 SEC (24-38) Heparin Anti-Xa Act, Unfractionated 0.87 IU/mL (0.30-0.70) Sodium Level 138 mmol/L (136-145) Potassium Level 3.1 mmol/L (3.5-5.1) Chloride Level 108 mmol/L (98-107) Carbon Dioxide Level 18 mmol/L (21-32) Anion Gap 12 (6-14) Blood Urea Nitrogen 32 mg/dL (7-20) Creatinine 0.9 mg/dL (0.6-1.0) Estimated GFR (Cockcroft-Gault) 63.9 Glucose Level 180 mg/dL (70-99) Calcium Level 7.9 mg/dL (8.5-10.1) Ionized Calcium 1.20 mmol/L (1.13-1.32) Phosphorus Level 3.5 mg/dL (2.6-4.7) Magnesium Level 2.8 mg/dL (1.8-2.4) Glucose (Fingerstick) 157 mg/dL (70-99) 202 mg/dL (70-99) O2 Saturation 98 % (92-99) Arterial Blood pH 7.18 (7.35-7.45) Arterial Blood pH (Temp corrected) 7.25 Arterial Blood pCO2 at Patient Temp 45 mmHg (35-46) Arterial Blood pCO2 (Temp correct) 36 mmHg Arterial Blood pO2 at Patient Temp 136 mmHg (65-108) Arterial Blood pO2 (Temp corrected) 108 mmHg Arterial Blood HCO3 16 mmol/L (21-28) Arterial Blood Base Excess -12 mmol/L (-3-3) Test 04/11/19 10:02 04/11/19 11:22 04/11/19 11:40 04/11/19 12:26 Glucose (Fingerstick) 190 mg/dL (70-99) 163 mg/dL (70-99) 129 mg/dL (70-99) White Blood Count 17.3 x10^3/uL (4.0-11.0) Red Blood Count 3.91 x10^6/uL (3.50-5.40) Hemoglobin 11.4 g/dL (12.0-15.5) Hematocrit 34.7 % (36.0-47.0) Mean Corpuscular Volume 89 fL (79-100) Mean Corpuscular Hemoglobin 29 pg (25-35) Mean Corpuscular Hemoglobin Concent 33 g/dL (31-37) Red Cell Distribution Width 13.0 % (11.5-14.5) Platelet Count 157 x10^3/uL (140-400) Prothrombin Time 17.2 SEC (11.7-14.0) Prothromb Time International Ratio 1.4 (0.8-1.1) Activated Partial Thromboplast Time 127 SEC (24-38) Urine Collection Type Unknown Urine Color Yellow Urine Clarity Clear Urine pH 5.0 Urine Specific [place] 1.025 Urine Protein Negative mg/dL (NEG-TRACE) Urine Glucose (UA) 100 mg/dL (NEG) Urine Ketones (Stick) Negative mg/dL (NEG) Urine Blood Small (NEG) Urine Nitrite Negative (NEG) Urine Bilirubin Negative (NEG) Urine Urobilinogen Dipstick 0.2 mg/dL (0.2 mg/dL) Urine Leukocyte Esterase Negative (NEG) Urine RBC 11-20 /HPF (0-2) Urine WBC Occ /HPF (0-4) Urine Squamous Epithelial Cells Occ /LPF Urine Bacteria 0 /HPF (0-FEW) Urine Mucus Mod /LPF Sodium Level 140 mmol/L (136-145) Potassium Level 2.7 mmol/L (3.5-5.1) Chloride Level 111 mmol/L (98-107) Carbon Dioxide Level 14 mmol/L (21-32) Anion Gap 15 (6-14) Blood Urea Nitrogen 23 mg/dL (7-20) Creatinine 0.6 mg/dL (0.6-1.0) Estimated GFR (Cockcroft-Gault) 102.0 Glucose Level 133 mg/dL (70-99) Calcium Level 6.3 mg/dL (8.5-10.1) Ionized Calcium 1.01 mmol/L (1.13-1.32) Phosphorus Level 1.8 mg/dL (2.6-4.7) Magnesium Level 2.2 mg/dL (1.8-2.4) Urine Opiates Screen Neg (NEG) Urine Methadone Screen Neg (NEG) Urine Barbiturates Neg (NEG) Urine Phencyclidine Screen Neg (NEG) Urine Amphetamine/Methamphetamine Neg (NEG) Urine Benzodiazepines Screen Pos (NEG) Urine Cocaine Screen Neg (NEG) Urine Cannabinoids Screen Neg (NEG) Urine Ethyl Alcohol Neg (NEG) Test 04/11/19 13:37 04/11/19 14:36 Glucose (Fingerstick) 134 mg/dL (70-99) 151 mg/dL (70-99) ADA TERRAZAS MD Apr 11, 2019 15:31
--- NOTE | 2019-04-11 16:29 | PDOC ---
Provider Note Provider Note Anesthesiology Called to emergently place a central line in hemodynamically unstable pt. who has lost IV access. Detailed note in chart. TLC placed easily Right IJ in usual sterile manner. No ectopy or other complications noted. CXR shows adeq. placement of TLC, MD QUINN Palmer RODNEY K MD Apr 11, 2019 16:29
--- NOTE | 2019-04-11 16:41 | RAD ---
INDICATION: Central line placement COMPARISON: Earlier same day FINDINGS: Single view of chest obtained. Right-sided vascular catheter with tip projecting over expected location of SVC. Lung apices are outside of the [id number] and not evaluated. Enteric tube is seen coursing below the diaphragm with tip at expected location of the stomach. There is an additional tube within the mid thoracic trachea which could be an enteric tube. Haziness at the left lung IMPRESSION: * Lines and tubes as above. * The lung apices are outside of the field of view therefore limited evaluation for pneumothorax. * Haziness within the left lung which could be from atelectasis or infiltrate with asymmetric edema also a possible cause. Electronically signed by: Gerry Frank MD (04/11/2019 4:38 PM) [facility] [place]
[2019-04-11 17:58] LABS: BASO % 0 % (0-3); EOS % 0 % (0-3); HEMATOCRIT 33.4 % (36.0-47.0); HEMOGLOBIN 11.1 g/dL (12.0-15.5); LYMPH # 1.2 x10^3/uL (1.0-4.8); LYMPH % 8 % (24-48); MEAN CORPUSCULAR HEMOGLOBIN 29 pg (25-35); MEAN CORPUSCULAR HGB CONC 33 g/dL (31-37); MEAN CORPUSCULAR VOLUME 88 fL (79-100); MONO # 0.5 x10^3/uL (0.0-1.1); MONO % 3 % (0-9); NEUT # 14.7 x10^3/uL (1.8-7.7); NEUT % 89 % (31-73); PLATELET COUNT 147 x10^3/uL (140-400); RED BLOOD COUNT 3.79 x10^6/uL (3.50-5.40); RED CELL DISTRIBUTION WIDTH 12.8 % (11.5-14.5); WHITE BLOOD COUNT 16.4 x10^3/uL (4.0-11.0)
[2019-04-11 18:10] LABS: CALCIUM 6.9 mg/dL (8.5-10.1); CREATININE 0.7 mg/dL (0.6-1.0); GFR 85.4; MAGNESIUM 2.2 mg/dL (1.8-2.4); PHOSPHORUS 2.5 mg/dL (2.6-4.7); POTASSIUM 3.2 mmol/L (3.5-5.1)
[2019-04-11 20:59] LABS: BASE EXCESS ABG -9 mmol/L (-3-3); CORRECTED PCO2 ABG 25 mmHg; CORRECTED PH ABG 7.39; CORRECTED PO2 ABG 120 mmHg; HCO3 ABG 15 mmol/L (21-28); SAT O2 ABG 98 % (92-99)
[2019-04-11 21:01] LABS: FIO2 ABG 50; PCO2 ABG 28 mmHg (35-46); PO2 ABG 135 mmHg (65-108)
[2019-04-11] MEDS: HEPARIN for SUB-Q USE 5,000 UNIT/ML VIAL. SQ SCH (21:12)
[2019-04-12] VITALS (24 sets, daily range): BP systolic 85–132; BP diastolic 38–56
[2019-04-12] MEDS: ACETAMINOPHEN 650 MG/20.3 ML SOLUTION. NG SCH (00:27)
[2019-04-12] MEDS: MIDAZOLAM HCL 50 MG in IV NORMAL SALINE 50ML 50 ML IV PRN (00:27)
[2019-04-12] MEDS: POLYVINYL ALCOHOL 1.4% OPHTH SOLUTION 15ML BOTTLE. OU SCH (00:27)
[2019-04-12 05:59] LABS: HEMATOCRIT 30.2 % (36.0-47.0); RED BLOOD COUNT 3.44 x10^6/uL (3.50-5.40); RED CELL DISTRIBUTION WIDTH 12.9 % (11.5-14.5); WHITE BLOOD COUNT 16.4 x10^3/uL (4.0-11.0)
--- NOTE | 2019-04-12 06:23 | PDOC ---
PULMONARY PROGRESS NOTES Subjective on vent, 50% fio2, small ett secretion, s/p hypothermia, follow commands at times, on amio, dopamine, fentanyl Vitals Vital Signs Date Time Temp Pulse Resp B/P (MAP) Pulse Ox O2 Delivery O2 Flow Rate FiO2 04/12/19 06:00 99.0 54 20 93/40 (57) 100 Ventilator 99.0 Comments ros as mentioned as above discussed w rn other sys otherwise neg sedated on vent HEENT: Other (nc at perrl orally intubated nose clear neck no lad no thyromegaly) Lungs: Crackles Cardiovascular: S1, S2 Abdomen: Soft, Non-tender, Other (no mass) Extremities: No Edema Skin: Warm, Diaphoretic Labs Laboratory Tests Test 04/10/19 12:20 04/10/19 12:26 04/10/19 12:31 04/10/19 12:35 White Blood Count 8.7 x10^3/uL (4.0-11.0) Red Blood Count 5.01 x10^6/uL (3.50-5.40) Hemoglobin 15.0 g/dL (12.0-15.5) Hematocrit 45.9 % (36.0-47.0) Mean Corpuscular Volume 92 fL (79-100) Mean Corpuscular Hemoglobin 30 pg (25-35) Mean Corpuscular Hemoglobin Concent 33 g/dL (31-37) Red Cell Distribution Width 12.9 % (11.5-14.5) Platelet Count 176 x10^3/uL (140-400) Neutrophils (%) (Auto) 47 % (31-73) Lymphocytes (%) (Auto) 50 % (24-48) Monocytes (%) (Auto) 2 % (0-9) Eosinophils (%) (Auto) 0 % (0-3) Basophils (%) (Auto) 0 % (0-3) Neutrophils # (Auto) 4.1 x10^3/uL (1.8-7.7) Lymphocytes # (Auto) 4.4 x10^3/uL (1.0-4.8) Monocytes # (Auto) 0.2 x10^3/uL (0.0-1.1) Eosinophils # (Auto) 0.0 x10^3/uL (0.0-0.7) Basophils # (Auto) 0.0 x10^3/uL (0.0-0.2) Segmented Neutrophils % 40 % (35-66) Band Neutrophils % 2 % (0-9) Lymphocytes % 54 % (24-48) Monocytes % 3 % (0-10) Eosinophils % 1 % (0-5) Platelet Estimate Adequate (ADEQUATE) Platelet Clumps, EDTA Present Sodium Level 140 mmol/L (136-145) Potassium Level 3.6 mmol/L (3.5-5.1) Chloride Level 103 mmol/L (98-107) Carbon Dioxide Level 20 mmol/L (21-32) Anion Gap 17 (6-14) 14 mmol/L (6-14) Blood Urea Nitrogen 19 mg/dL (7-20) Creatinine 1.2 mg/dL (0.6-1.0) Estimated GFR (Cockcroft-Gault) 45.8 BUN/Creatinine Ratio 16 (6-20) Glucose Level 300 mg/dL (70-99) 288 mg/dL (70-99) Hemoglobin A1c 5.7 % (4.8-5.6) Lactic Acid Level 9.0 mmol/L (0.4-2.0) Calcium Level 9.4 mg/dL (8.5-10.1) Magnesium Level 2.5 mg/dL (1.8-2.4) Total Bilirubin 0.4 mg/dL (0.2-1.0) Aspartate Amino Transf (AST/SGOT) 128 U/L (15-37) Alanine Aminotransferase (ALT/SGPT) 135 U/L (14-59) Alkaline Phosphatase 83 U/L (46-116) Creatine Kinase 194 U/L (26-192) Troponin I Quantitative 0.633 ng/mL (0.000-0.055) NB-Ajh-N-Type Natriuretic Peptide 409 pg/mL (0-124) Total Protein 6.8 g/dL (6.4-8.2) Albumin 3.4 g/dL (3.4-5.0) Albumin/Globulin Ratio 1.0 (1.0-1.7) Triglycerides Level 83 mg/dL (0-150) Cholesterol Level 168 mg/dL (0-200) LDL Cholesterol, Calculated 92 mg/dL (0-100) VLDL Cholesterol, Calculated 17 mg/dL (0-40) Non-HDL Cholesterol Calculated 109 mg/dL (0-129) HDL Cholesterol 59 mg/dL (40-60) Cholesterol/HDL Ratio 2.8 Lipase 534 U/L (73-393) Thyroid Stimulating Hormone (TSH) 3.367 uIU/mL (0.358-3.74) Glucose (Fingerstick) 269 mg/dL (70-99) Bedside Troponin I 0.37 ng/ml (<0.08) Bedside Hemoglobin 16.0 g/dL (12-15) Bedside Hematocrit 47 % (36-40) Bedside Sodium 139 mmol/L (135-145) Bedside Potassium 3.4 mmol/L (3.5-5.0) Bedside Chloride 106 mmol/L (98-110) Bedside Total CO2 22 mmol/L (23-32) Bedside Blood Urea Nitrogen 21 mg/dL (8-26) Bedside Creatinine 1.1 mg/dL (0.5-1.4) Bedside Ionized Calcium (Kayleigh) 1.22 mmol/L (1.13-1.32) Test 04/10/19 12:57 04/10/19 12:59 04/10/19 13:40 04/10/19 16:05 Prothrombin Time 18.8 SEC (11.7-14.0) Prothromb Time International Ratio 1.6 (0.8-1.1) D-Dimer (Annabelle) > 20.00 ug/mlFEU O2 Saturation 96 % (92-99) Arterial Blood pH 7.18 (7.35-7.45) Arterial Blood pCO2 at Patient Temp 38 mmHg (35-46) Arterial Blood pO2 at Patient Temp 103 mmHg (65-108) Arterial Blood HCO3 14 mmol/L (21-28) Arterial Blood Base Excess -14 mmol/L (-3-3) FiO2 100 Influenza Type A Antigen Negative (NEGATIVE) Influenza Type B Antigen Negative (NEGATIVE) Lactic Acid Level 3.9 mmol/L (0.4-2.0) Test 04/10/19 17:40 04/10/19 18:47 04/10/19 19:23 04/10/19 21:26 O2 Saturation 99 % (92-99) Arterial Blood pH 7.37 (7.35-7.45) Arterial Blood pCO2 at Patient Temp 39 mmHg (35-46) Arterial Blood pO2 at Patient Temp 329 mmHg (65-108) Arterial Blood HCO3 22 mmol/L (21-28) Arterial Blood Base Excess -3 mmol/L (-3-3) FiO2 100 Glucose (Fingerstick) 230 mg/dL (70-99) 208 mg/dL (70-99) Prothrombin Time 17.9 SEC (11.7-14.0) Prothromb Time International Ratio 1.5 (0.8-1.1) Activated Partial Thromboplast Time 53 SEC (24-38) Sodium Level 140 mmol/L (136-145) Potassium Level 3.1 mmol/L (3.5-5.1) Chloride Level 108 mmol/L (98-107) Carbon Dioxide Level 21 mmol/L (21-32) Anion Gap 11 (6-14) Blood Urea Nitrogen 28 mg/dL (7-20) Creatinine 0.9 mg/dL (0.6-1.0) Estimated GFR (Cockcroft-Gault) 63.9 Glucose Level 261 mg/dL (70-99) Calcium Level 7.9 mg/dL (8.5-10.1) Ionized Calcium 1.15 mmol/L (1.13-1.32) Phosphorus Level 3.7 mg/dL (2.6-4.7) Magnesium Level 2.8 mg/dL (1.8-2.4) Test 04/10/19 22:14 04/10/19 23:25 04/11/19 00:23 04/11/19 01:10 Glucose (Fingerstick) 202 mg/dL (70-99) 127 mg/dL (70-99) 134 mg/dL (70-99) Prothrombin Time 16.6 SEC (11.7-14.0) Prothromb Time International Ratio 1.4 (0.8-1.1) Activated Partial Thromboplast Time 41 SEC (24-38) Sodium Level 139 mmol/L (136-145) Potassium Level 2.9 mmol/L (3.5-5.1) Chloride Level 108 mmol/L (98-107) Carbon Dioxide Level 19 mmol/L (21-32) Anion Gap 12 (6-14) Blood Urea Nitrogen 30 mg/dL (7-20) Creatinine 1.0 mg/dL (0.6-1.0) Estimated GFR (Cockcroft-Gault) 56.6 Glucose Level 118 mg/dL (70-99) Calcium Level 8.2 mg/dL (8.5-10.1) Ionized Calcium 1.21 mmol/L (1.13-1.32) Phosphorus Level 2.8 mg/dL (2.6-4.7) Magnesium Level 3.4 mg/dL (1.8-2.4) Test 04/11/19 01:15 04/11/19 02:11 04/11/19 03:07 04/11/19 05:20 Glucose (Fingerstick) 100 mg/dL (70-99) 110 mg/dL (70-99) 119 mg/dL (70-99) White Blood Count 18.4 x10^3/uL (4.0-11.0) Red Blood Count 4.46 x10^6/uL (3.50-5.40) Hemoglobin 13.0 g/dL (12.0-15.5) Hematocrit 39.7 % (36.0-47.0) Mean Corpuscular Volume 89 fL (79-100) Mean Corpuscular Hemoglobin 29 pg (25-35) Mean Corpuscular Hemoglobin Concent 33 g/dL (31-37) Red Cell Distribution Width 13.0 % (11.5-14.5) Platelet Count 186 x10^3/uL (140-400) Neutrophils (%) (Auto) 90 % (31-73) Lymphocytes (%) (Auto) 6 % (24-48) Monocytes (%) (Auto) 4 % (0-9) Eosinophils (%) (Auto) 0 % (0-3) Basophils (%) (Auto) 0 % (0-3) Neutrophils # (Auto) 16.6 x10^3/uL (1.8-7.7) Lymphocytes # (Auto) 1.1 x10^3/uL (1.0-4.8) Monocytes # (Auto) 0.7 x10^3/uL (0.0-1.1) Eosinophils # (Auto) 0.0 x10^3/uL (0.0-0.7) Basophils # (Auto) 0.0 x10^3/uL (0.0-0.2) Segmented Neutrophils % 73 % (35-66) Band Neutrophils % 18 % (0-9) Lymphocytes % 3 % (24-48) Monocytes % 6 % (0-10) Platelet Estimate Adequate (ADEQUATE) Prothrombin Time 16.2 SEC (11.7-14.0) Prothromb Time International Ratio 1.3 (0.8-1.1) Activated Partial Thromboplast Time 47 SEC (24-38) Heparin Anti-Xa Act, Unfractionated 0.87 IU/mL (0.30-0.70) Sodium Level 138 mmol/L (136-145) Potassium Level 3.1 mmol/L (3.5-5.1) Chloride Level 108 mmol/L (98-107) Carbon Dioxide Level 18 mmol/L (21-32) Anion Gap 12 (6-14) Blood Urea Nitrogen 32 mg/dL (7-20) Creatinine 0.9 mg/dL (0.6-1.0) Estimated GFR (Cockcroft-Gault) 63.9 Glucose Level 180 mg/dL (70-99) Calcium Level 7.9 mg/dL (8.5-10.1) Ionized Calcium 1.20 mmol/L (1.13-1.32) Phosphorus Level 3.5 mg/dL (2.6-4.7) Magnesium Level 2.8 mg/dL (1.8-2.4) Test 04/11/19 05:25 04/11/19 07:50 04/11/19 08:19 04/11/19 10:02 Glucose (Fingerstick) 157 mg/dL (70-99) 202 mg/dL (70-99) 190 mg/dL (70-99) O2 Saturation 98 % (92-99) Arterial Blood pH 7.18 (7.35-7.45) Arterial Blood pH (Temp corrected) 7.25 Arterial Blood pCO2 at Patient Temp 45 mmHg (35-46) Arterial Blood pCO2 (Temp correct) 36 mmHg Arterial Blood pO2 at Patient Temp 136 mmHg (65-108) Arterial Blood pO2 (Temp corrected) 108 mmHg Arterial Blood HCO3 16 mmol/L (21-28) Arterial Blood Base Excess -12 mmol/L (-3-3) Test 04/11/19 11:22 04/11/19 11:40 04/11/19 12:26 04/11/19 13:37 Glucose (Fingerstick) 163 mg/dL (70-99) 129 mg/dL (70-99) 134 mg/dL (70-99) White Blood Count 17.3 x10^3/uL (4.0-11.0) Red Blood Count 3.91 x10^6/uL (3.50-5.40) Hemoglobin 11.4 g/dL (12.0-15.5) Hematocrit 34.7 % (36.0-47.0) Mean Corpuscular Volume 89 fL (79-100) Mean Corpuscular Hemoglobin 29 pg (25-35) Mean Corpuscular Hemoglobin Concent 33 g/dL (31-37) Red Cell Distribution Width 13.0 % (11.5-14.5) Platelet Count 157 x10^3/uL (140-400) Prothrombin Time 17.2 SEC (11.7-14.0) Prothromb Time International Ratio 1.4 (0.8-1.1) Activated Partial Thromboplast Time 127 SEC (24-38) Urine Collection Type Unknown Urine Color Yellow Urine Clarity Clear Urine pH 5.0 Urine Specific [place] 1.025 Urine Protein Negative mg/dL (NEG-TRACE) Urine Glucose (UA) 100 mg/dL (NEG) Urine Ketones (Stick) Negative mg/dL (NEG) Urine Blood Small (NEG) Urine Nitrite Negative (NEG) Urine Bilirubin Negative (NEG) Urine Urobilinogen Dipstick 0.2 mg/dL (0.2 mg/dL) Urine Leukocyte Esterase Negative (NEG) Urine RBC 11-20 /HPF (0-2) Urine WBC Occ /HPF (0-4) Urine Squamous Epithelial Cells Occ /LPF Urine Bacteria 0 /HPF (0-FEW) Urine Mucus Mod /LPF Sodium Level 140 mmol/L (136-145) Potassium Level 2.7 mmol/L (3.5-5.1) Chloride Level 111 mmol/L (98-107) Carbon Dioxide Level 14 mmol/L (21-32) Anion Gap 15 (6-14) Blood Urea Nitrogen 23 mg/dL (7-20) Creatinine 0.6 mg/dL (0.6-1.0) Estimated GFR (Cockcroft-Gault) 102.0 Glucose Level 133 mg/dL (70-99) Calcium Level 6.3 mg/dL (8.5-10.1) Ionized Calcium 1.01 mmol/L (1.13-1.32) Phosphorus Level 1.8 mg/dL (2.6-4.7) Magnesium Level 2.2 mg/dL (1.8-2.4) Urine Opiates Screen Neg (NEG) Urine Methadone Screen Neg (NEG) Urine Barbiturates Neg (NEG) Urine Phencyclidine Screen Neg (NEG) Urine Amphetamine/Methamphetamine Neg (NEG) Urine Benzodiazepines Screen Pos (NEG) Urine Cocaine Screen Neg (NEG) Urine Cannabinoids Screen Neg (NEG) Urine Ethyl Alcohol Neg (NEG) Test 04/11/19 14:36 04/11/19 15:40 04/11/19 17:06 04/11/19 17:45 Glucose (Fingerstick) 151 mg/dL (70-99) 157 mg/dL (70-99) 144 mg/dL (70-99) White Blood Count 16.4 x10^3/uL (4.0-11.0) Red Blood Count 3.79 x10^6/uL (3.50-5.40) Hemoglobin 11.1 g/dL (12.0-15.5) Hematocrit 33.4 % (36.0-47.0) Mean Corpuscular Volume 88 fL (79-100) Mean Corpuscular Hemoglobin 29 pg (25-35) Mean Corpuscular Hemoglobin Concent 33 g/dL (31-37) Red Cell Distribution Width 12.8 % (11.5-14.5) Platelet Count 147 x10^3/uL (140-400) Neutrophils (%) (Auto) 89 % (31-73) Lymphocytes (%) (Auto) 8 % (24-48) Monocytes (%) (Auto) 3 % (0-9) Eosinophils (%) (Auto) 0 % (0-3) Basophils (%) (Auto) 0 % (0-3) Neutrophils # (Auto) 14.7 x10^3/uL (1.8-7.7) Lymphocytes # (Auto) 1.2 x10^3/uL (1.0-4.8) Monocytes # (Auto) 0.5 x10^3/uL (0.0-1.1) Eosinophils # (Auto) 0.0 x10^3/uL (0.0-0.7) Basophils # (Auto) 0.0 x10^3/uL (0.0-0.2) Prothrombin Time 17.0 SEC (11.7-14.0) Prothromb Time International Ratio 1.4 (0.8-1.1) Activated Partial Thromboplast Time 37 SEC (24-38) Sodium Level 137 mmol/L (136-145) Potassium Level 3.2 mmol/L (3.5-5.1) Chloride Level 108 mmol/L (98-107) Carbon Dioxide Level 18 mmol/L (21-32) Anion Gap 11 (6-14) Blood Urea Nitrogen 21 mg/dL (7-20) Creatinine 0.7 mg/dL (0.6-1.0) Estimated GFR (Cockcroft-Gault) 85.4 Glucose Level 151 mg/dL (70-99) Calcium Level 6.9 mg/dL (8.5-10.1) Ionized Calcium 1.10 mmol/L (1.13-1.32) Phosphorus Level 2.5 mg/dL (2.6-4.7) Magnesium Level 2.2 mg/dL (1.8-2.4) Test 04/11/19 20:00 04/11/19 22:29 04/12/19 05:25 O2 Saturation 98 % (92-99) Arterial Blood pH 7.35 (7.35-7.45) Arterial Blood pH (Temp corrected) 7.39 Arterial Blood pCO2 at Patient Temp 28 mmHg (35-46) Arterial Blood pCO2 (Temp correct) 25 mmHg Arterial Blood pO2 at Patient Temp 135 mmHg (65-108) Arterial Blood pO2 (Temp corrected) 120 mmHg Arterial Blood HCO3 15 mmol/L (21-28) Arterial Blood Base Excess -9 mmol/L (-3-3) FiO2 50 Glucose (Fingerstick) 125 mg/dL (70-99) White Blood Count 16.4 x10^3/uL (4.0-11.0) Red Blood Count 3.44 x10^6/uL (3.50-5.40) Hemoglobin 10.0 g/dL (12.0-15.5) Hematocrit 30.2 % (36.0-47.0) Mean Corpuscular Volume 88 fL (79-100) Mean Corpuscular Hemoglobin 29 pg (25-35) Mean Corpuscular Hemoglobin Concent 33 g/dL (31-37) Red Cell Distribution Width 12.9 % (11.5-14.5) Platelet Count 152 x10^3/uL (140-400) Laboratory Tests Test 04/11/19 07:50 04/11/19 08:19 04/11/19 10:02 04/11/19 11:22 O2 Saturation 98 % (92-99) Arterial Blood pH 7.18 (7.35-7.45) Arterial Blood pH (Temp corrected) 7.25 Arterial Blood pCO2 at Patient Temp 45 mmHg (35-46) Arterial Blood pCO2 (Temp correct) 36 mmHg Arterial Blood pO2 at Patient Temp 136 mmHg (65-108) Arterial Blood pO2 (Temp corrected) 108 mmHg Arterial Blood HCO3 16 mmol/L (21-28) Arterial Blood Base Excess -12 mmol/L (-3-3) Glucose (Fingerstick) 202 mg/dL (70-99) 190 mg/dL (70-99) 163 mg/dL (70-99) Test 04/11/19 11:40 04/11/19 12:26 04/11/19 13:37 04/11/19 14:36 White Blood Count 17.3 x10^3/uL (4.0-11.0) Red Blood Count 3.91 x10^6/uL (3.50-5.40) Hemoglobin 11.4 g/dL (12.0-15.5) Hematocrit 34.7 % (36.0-47.0) Mean Corpuscular Volume 89 fL (79-100) Mean Corpuscular Hemoglobin 29 pg (25-35) Mean Corpuscular Hemoglobin Concent 33 g/dL (31-37) Red Cell Distribution Width 13.0 % (11.5-14.5) Platelet Count 157 x10^3/uL (140-400) Prothrombin Time 17.2 SEC (11.7-14.0) Prothromb Time International Ratio 1.4 (0.8-1.1) Activated Partial Thromboplast Time 127 SEC (24-38) Urine Collection Type Unknown Urine Color Yellow Urine Clarity Clear Urine pH 5.0 Urine Specific [place] 1.025 Urine Protein Negative mg/dL (NEG-TRACE) Urine Glucose (UA) 100 mg/dL (NEG) Urine Ketones (Stick) Negative mg/dL (NEG) Urine Blood Small (NEG) Urine Nitrite Negative (NEG) Urine Bilirubin Negative (NEG) Urine Urobilinogen Dipstick 0.2 mg/dL (0.2 mg/dL) Urine Leukocyte Esterase Negative (NEG) Urine RBC 11-20 /HPF (0-2) Urine WBC Occ /HPF (0-4) Urine Squamous Epithelial Cells Occ /LPF Urine Bacteria 0 /HPF (0-FEW) Urine Mucus Mod /LPF Sodium Level 140 mmol/L (136-145) Potassium Level 2.7 mmol/L (3.5-5.1) Chloride Level 111 mmol/L (98-107) Carbon Dioxide Level 14 mmol/L (21-32) Anion Gap 15 (6-14) Blood Urea Nitrogen 23 mg/dL (7-20) Creatinine 0.6 mg/dL (0.6-1.0) Estimated GFR (Cockcroft-Gault) 102.0 Glucose Level 133 mg/dL (70-99) Calcium Level 6.3 mg/dL (8.5-10.1) Ionized Calcium 1.01 mmol/L (1.13-1.32) Phosphorus Level 1.8 mg/dL (2.6-4.7) Magnesium Level 2.2 mg/dL (1.8-2.4) Urine Opiates Screen Neg (NEG) Urine Methadone Screen Neg (NEG) Urine Barbiturates Neg (NEG) Urine Phencyclidine Screen Neg (NEG) Urine Amphetamine/Methamphetamine Neg (NEG) Urine Benzodiazepines Screen Pos (NEG) Urine Cocaine Screen Neg (NEG) Urine Cannabinoids Screen Neg (NEG) Urine Ethyl Alcohol Neg (NEG) Glucose (Fingerstick) 129 mg/dL (70-99) 134 mg/dL (70-99) 151 mg/dL (70-99) Test 04/11/19 15:40 04/11/19 17:06 04/11/19 17:45 04/11/19 20:00 Glucose (Fingerstick) 157 mg/dL (70-99) 144 mg/dL (70-99) White Blood Count 16.4 x10^3/uL (4.0-11.0) Red Blood Count 3.79 x10^6/uL (3.50-5.40) Hemoglobin 11.1 g/dL (12.0-15.5) Hematocrit 33.4 % (36.0-47.0) Mean Corpuscular Volume 88 fL (79-100) Mean Corpuscular Hemoglobin 29 pg (25-35) Mean Corpuscular Hemoglobin Concent 33 g/dL (31-37) Red Cell Distribution Width 12.8 % (11.5-14.5) Platelet Count 147 x10^3/uL (140-400) Neutrophils (%) (Auto) 89 % (31-73) Lymphocytes (%) (Auto) 8 % (24-48) Monocytes (%) (Auto) 3 % (0-9) Eosinophils (%) (Auto) 0 % (0-3) Basophils (%) (Auto) 0 % (0-3) Neutrophils # (Auto) 14.7 x10^3/uL (1.8-7.7) Lymphocytes # (Auto) 1.2 x10^3/uL (1.0-4.8) Monocytes # (Auto) 0.5 x10^3/uL (0.0-1.1) Eosinophils # (Auto) 0.0 x10^3/uL (0.0-0.7) Basophils # (Auto) 0.0 x10^3/uL (0.0-0.2) Prothrombin Time 17.0 SEC (11.7-14.0) Prothromb Time International Ratio 1.4 (0.8-1.1) Activated Partial Thromboplast Time 37 SEC (24-38) Sodium Level 137 mmol/L (136-145) Potassium Level 3.2 mmol/L (3.5-5.1) Chloride Level 108 mmol/L (98-107) Carbon Dioxide Level 18 mmol/L (21-32) Anion Gap 11 (6-14) Blood Urea Nitrogen 21 mg/dL (7-20) Creatinine 0.7 mg/dL (0.6-1.0) Estimated GFR (Cockcroft-Gault) 85.4 Glucose Level 151 mg/dL (70-99) Calcium Level 6.9 mg/dL (8.5-10.1) Ionized Calcium 1.10 mmol/L (1.13-1.32) Phosphorus Level 2.5 mg/dL (2.6-4.7) Magnesium Level 2.2 mg/dL (1.8-2.4) O2 Saturation 98 % (92-99) Arterial Blood pH 7.35 (7.35-7.45) Arterial Blood pH (Temp corrected) 7.39 Arterial Blood pCO2 at Patient Temp 28 mmHg (35-46) Arterial Blood pCO2 (Temp correct) 25 mmHg Arterial Blood pO2 at Patient Temp 135 mmHg (65-108) Arterial Blood pO2 (Temp corrected) 120 mmHg Arterial Blood HCO3 15 mmol/L (21-28) Arterial Blood Base Excess -9 mmol/L (-3-3) FiO2 50 Test 04/11/19 22:29 04/12/19 05:25 Glucose (Fingerstick) 125 mg/dL (70-99) White Blood Count 16.4 x10^3/uL (4.0-11.0) Red Blood Count 3.44 x10^6/uL (3.50-5.40) Hemoglobin 10.0 g/dL (12.0-15.5) Hematocrit 30.2 % (36.0-47.0) Mean Corpuscular Volume 88 fL (79-100) Mean Corpuscular Hemoglobin 29 pg (25-35) Mean Corpuscular Hemoglobin Concent 33 g/dL (31-37) Red Cell Distribution Width 12.9 % (11.5-14.5) Platelet Count 152 x10^3/uL (140-400) Medications Active Scripts Medications Dose Route/Sig Max Daily Dose Days Date Category Celebrex (Celecoxib) 100 Mg Capsule 1 Cap PO BID 04/11/19 Reported Verapamil Er (Verapamil Hcl) 240 Mg Cap24h.pel 1 Cap PO DAILY 04/11/19 Reported Comments cxr reviewed lll haziness ett ok Impression . IMPRESSION: 1. [id number] cardiopulmonary arrest, etiology unclear. 2. Status post emergent cardiac catheterization revealing normal ejection fraction, nonobstructive coronary artery disease, 50% stenosis involving the dominant right coronary artery. Normal left ventricular ejection fraction estimated at 55%. 3. Hypertension. 4. Recent acute bronchitis. CTA CHEST IMPRESSION: 1. No pulmonary embolus identified within the main, lobar or segmental pulmonary arteries. 2. Layering consolidative changes in the lungs bilaterally greater on the left favored to represent pulmonary edema. Superimposed infectious process is difficult to exclude. FINDINGS 1. Hemodynamics: Left ventricular end-diastolic pressure 5 mmHg. No pullback gradient across the aortic valve. 2. Left ventriculography: Normal left ventricle systolic function with ejection fraction estimated at 55%. No significant mitral regurgitation seen. 3. Coronary angiography: a. The left main coronary artery arose from the left sinus of Valsalva, gave rise to the left anterior descending and left circumflex arteries and did not show any significant stenosis. b. The left anterior descending artery showed 30% stenosis in the midsegment. The diagonal branch showed 50% stenosis in the proximal segment. c. The left circumflex artery did not show any significant stenosis. d. The right coronary artery was a large and dominant vessel arising from the right sinus of Valsalva that showed 50% stenosis in the midsegment. This was physiologically insignificant based on IFR measurement of 1.0. Conclusion 1. Nonobstructive coronary artery disease. 50% stenosis involving dominant right coronary artery that was physiologically not significant based on IFR measurement. The diagonal branch which is a small to medium caliber vessel also showed 50% proximal segment stenosis. 2. Normal left ventricle systolic function with ejection fraction estimated at 55%. Recommendations Consider AICD implantation for secondary prevention of sudden cardiac if workup for pulmonary embolism as negative Plan . cont vent support, setting reviewed, decreased fi02 to 40%, sbt when more awake NEGATIVE CTA OF CHEST WILL CONTINUE SUPPORT IV LASIX, monitor k, cr EMPIRIC ANTIBX s/p HYPOTHERMIC PROTOCOL amio per cardiology discussed w rn and family SIM CERON MD Apr 12, 2019 06:23
[2019-04-12 07:45] LABS: ALBUMIN 1.8 g/dL (3.4-5.0); ALBUMIN/GLOBULIN RATIO 0.8 (1.0-1.7); CREATININE 0.8 mg/dL (0.6-1.0); GFR 73.2; POTASSIUM 4.2 mmol/L (3.5-5.1); TOTAL BILIRUBIN 0.2 mg/dL (0.2-1.0)
[2019-04-12 08:08] LABS: BASE EXCESS ABG -8 mmol/L (-3-3); HCO3 ABG 16 mmol/L (21-28); PCO2 ABG 28 mmHg (35-46); PO2 ABG 103 mmHg (65-108); SAT O2 ABG 97 % (92-99)
[2019-04-12] MEDS ORDERED: AMIODARONE 450 MG in IV DEXTROSE 5% 250 ML IV PRN (08:15)
[2019-04-12 08:20] LABS: FIO2 ABG 40
[2019-04-12] MEDS: PANTOPRAZOLE IV PUSH 40 MG VIAL. IVP SCH (09:05)
[2019-04-12] MEDS: HEPARIN for SUB-Q USE 5,000 UNIT/ML VIAL. SQ SCH ×2 (09:07→20:46)
--- NOTE | 2019-04-12 09:24 | RAD ---
PORTABLE CHEST 1V INDICATION: Respiratory failure. COMPARISON STUDY: 04/11/2019. FINDINGS: Life Support Devices: Stable endotracheal tube, enteric tube, and right IJ central venous catheter. Lungs: Normal lung volume. Unchanged mild left basilar haziness. Normal pulmonary vasculature. Pleura: No pleural effusion or pneumothorax. Heart and Mediastinum: Stable cardiomediastinal silhouette and great vessels. IMPRESSION: 1. Stable life support devices. 2. Unchanged mild left basilar haziness. Electronically signed by: Jesse Stratton MD (04/12/2019 9:21 AM) [facility]
--- NOTE | 2019-04-12 10:02 | PDOC ---
PROGRESS NOTES Chief Complaint Chief Complaint Status post cardiac arrest Status post cardiac cath with no flow limiting lesions evident Arrhythmia History of essential hypertension History of dyslipidemia bracycardia most likely due to amiodarone Leukocytosis reactive most likely but will cover with ATB for possible aspiration pneumonia Plan: supportive measures continue with vent support as per pulmonology ATB monitor bradycardia and adjust meds as per senior clinical consultant. History of Present Illness History of Present Illness Patient much more responsive today. She seems to be following simple commands, still requiring ventilatory support. Blood gases noted follow recommendations from pulmonology Vitals Vitals Vital Signs Date Time Temp Pulse Resp B/P (MAP) Pulse Ox O2 Delivery O2 Flow Rate FiO2 04/12/19 09:00 55 20 95/40 (58) 100 Ventilator 04/12/19 08:00 99.3 99.3 Physical Exam General: Other (intubated) Heart: Other (bradycardia) Lungs: Crackles Abdomen: Soft Extremities: No cyanosis, No edema Skin: No significant lesion Labs LABS Laboratory Tests Test 04/11/19 10:02 04/11/19 11:22 04/11/19 11:40 04/11/19 12:26 Glucose (Fingerstick) 190 mg/dL (70-99) 163 mg/dL (70-99) 129 mg/dL (70-99) White Blood Count 17.3 x10^3/uL (4.0-11.0) Red Blood Count 3.91 x10^6/uL (3.50-5.40) Hemoglobin 11.4 g/dL (12.0-15.5) Hematocrit 34.7 % (36.0-47.0) Mean Corpuscular Volume 89 fL (79-100) Mean Corpuscular Hemoglobin 29 pg (25-35) Mean Corpuscular Hemoglobin Concent 33 g/dL (31-37) Red Cell Distribution Width 13.0 % (11.5-14.5) Platelet Count 157 x10^3/uL (140-400) Prothrombin Time 17.2 SEC (11.7-14.0) Prothromb Time International Ratio 1.4 (0.8-1.1) Activated Partial Thromboplast Time 127 SEC (24-38) Urine Collection Type Unknown Urine Color Yellow Urine Clarity Clear Urine pH 5.0 Urine Specific [place] 1.025 Urine Protein Negative mg/dL (NEG-TRACE) Urine Glucose (UA) 100 mg/dL (NEG) Urine Ketones (Stick) Negative mg/dL (NEG) Urine Blood Small (NEG) Urine Nitrite Negative (NEG) Urine Bilirubin Negative (NEG) Urine Urobilinogen Dipstick 0.2 mg/dL (0.2 mg/dL) Urine Leukocyte Esterase Negative (NEG) Urine RBC 11-20 /HPF (0-2) Urine WBC Occ /HPF (0-4) Urine Squamous Epithelial Cells Occ /LPF Urine Bacteria 0 /HPF (0-FEW) Urine Mucus Mod /LPF Sodium Level 140 mmol/L (136-145) Potassium Level 2.7 mmol/L (3.5-5.1) Chloride Level 111 mmol/L (98-107) Carbon Dioxide Level 14 mmol/L (21-32) Anion Gap 15 (6-14) Blood Urea Nitrogen 23 mg/dL (7-20) Creatinine 0.6 mg/dL (0.6-1.0) Estimated GFR (Cockcroft-Gault) 102.0 Glucose Level 133 mg/dL (70-99) Calcium Level 6.3 mg/dL (8.5-10.1) Ionized Calcium 1.01 mmol/L (1.13-1.32) Phosphorus Level 1.8 mg/dL (2.6-4.7) Magnesium Level 2.2 mg/dL (1.8-2.4) Urine Opiates Screen Neg (NEG) Urine Methadone Screen Neg (NEG) Urine Barbiturates Neg (NEG) Urine Phencyclidine Screen Neg (NEG) Urine Amphetamine/Methamphetamine Neg (NEG) Urine Benzodiazepines Screen Pos (NEG) Urine Cocaine Screen Neg (NEG) Urine Cannabinoids Screen Neg (NEG) Urine Ethyl Alcohol Neg (NEG) Test 04/11/19 13:37 04/11/19 14:36 04/11/19 15:40 04/11/19 17:06 Glucose (Fingerstick) 134 mg/dL (70-99) 151 mg/dL (70-99) 157 mg/dL (70-99) 144 mg/dL (70-99) Test 04/11/19 17:45 04/11/19 20:00 04/11/19 22:29 04/12/19 05:25 White Blood Count 16.4 x10^3/uL (4.0-11.0) 16.4 x10^3/uL (4.0-11.0) Red Blood Count 3.79 x10^6/uL (3.50-5.40) 3.44 x10^6/uL (3.50-5.40) Hemoglobin 11.1 g/dL (12.0-15.5) 10.0 g/dL (12.0-15.5) Hematocrit 33.4 % (36.0-47.0) 30.2 % (36.0-47.0) Mean Corpuscular Volume 88 fL (79-100) 88 fL (79-100) Mean Corpuscular Hemoglobin 29 pg (25-35) 29 pg (25-35) Mean Corpuscular Hemoglobin Concent 33 g/dL (31-37) 33 g/dL (31-37) Red Cell Distribution Width 12.8 % (11.5-14.5) 12.9 % (11.5-14.5) Platelet Count 147 x10^3/uL (140-400) 152 x10^3/uL (140-400) Neutrophils (%) (Auto) 89 % (31-73) Lymphocytes (%) (Auto) 8 % (24-48) Monocytes (%) (Auto) 3 % (0-9) Eosinophils (%) (Auto) 0 % (0-3) Basophils (%) (Auto) 0 % (0-3) Neutrophils # (Auto) 14.7 x10^3/uL (1.8-7.7) Lymphocytes # (Auto) 1.2 x10^3/uL (1.0-4.8) Monocytes # (Auto) 0.5 x10^3/uL (0.0-1.1) Eosinophils # (Auto) 0.0 x10^3/uL (0.0-0.7) Basophils # (Auto) 0.0 x10^3/uL (0.0-0.2) Prothrombin Time 17.0 SEC (11.7-14.0) Prothromb Time International Ratio 1.4 (0.8-1.1) Activated Partial Thromboplast Time 37 SEC (24-38) Sodium Level 137 mmol/L (136-145) Potassium Level 3.2 mmol/L (3.5-5.1) Chloride Level 108 mmol/L (98-107) Carbon Dioxide Level 18 mmol/L (21-32) Anion Gap 11 (6-14) Blood Urea Nitrogen 21 mg/dL (7-20) Creatinine 0.7 mg/dL (0.6-1.0) Estimated GFR (Cockcroft-Gault) 85.4 Glucose Level 151 mg/dL (70-99) Calcium Level 6.9 mg/dL (8.5-10.1) Ionized Calcium 1.10 mmol/L (1.13-1.32) Phosphorus Level 2.5 mg/dL (2.6-4.7) Magnesium Level 2.2 mg/dL (1.8-2.4) O2 Saturation 98 % (92-99) Arterial Blood pH 7.35 (7.35-7.45) Arterial Blood pH (Temp corrected) 7.39 Arterial Blood pCO2 at Patient Temp 28 mmHg (35-46) Arterial Blood pCO2 (Temp correct) 25 mmHg Arterial Blood pO2 at Patient Temp 135 mmHg (65-108) Arterial Blood pO2 (Temp corrected) 120 mmHg Arterial Blood HCO3 15 mmol/L (21-28) Arterial Blood Base Excess -9 mmol/L (-3-3) FiO2 50 Glucose (Fingerstick) 125 mg/dL (70-99) Test 04/12/19 05:28 04/12/19 07:10 Sodium Level 132 mmol/L (136-145) Potassium Level 4.2 mmol/L (3.5-5.1) Chloride Level 104 mmol/L (98-107) Carbon Dioxide Level 18 mmol/L (21-32) Anion Gap 10 (6-14) Blood Urea Nitrogen 23 mg/dL (7-20) Creatinine 0.8 mg/dL (0.6-1.0) Estimated GFR (Cockcroft-Gault) 73.2 BUN/Creatinine Ratio 29 (6-20) Glucose Level 136 mg/dL (70-99) Calcium Level 7.0 mg/dL (8.5-10.1) Total Bilirubin 0.2 mg/dL (0.2-1.0) Aspartate Amino Transf (AST/SGOT) 70 U/L (15-37) Alanine Aminotransferase (ALT/SGPT) 70 U/L (14-59) Alkaline Phosphatase 57 U/L (46-116) Total Protein 4.0 g/dL (6.4-8.2) Albumin 1.8 g/dL (3.4-5.0) Albumin/Globulin Ratio 0.8 (1.0-1.7) O2 Saturation 97 % (92-99) Arterial Blood pH 7.37 (7.35-7.45) Arterial Blood pCO2 at Patient Temp 28 mmHg (35-46) Arterial Blood pO2 at Patient Temp 103 mmHg (65-108) Arterial Blood HCO3 16 mmol/L (21-28) Arterial Blood Base Excess -8 mmol/L (-3-3) FiO2 40 Assessment and Plan Assessmemt and Plan Problems Medical Problems: (1) Acute respiratory acidosis Status: Acute (2) Cardiorespiratory arrest Status: Acute (3) Elevated d-dimer Status: Acute (4) Elevated troponin Status: Acute (5) Hyperglycemia Status: Acute (6) Hypokalemia Status: Acute (7) NSTEMI (non-ST elevated myocardial infarction) Status: Acute (8) Pneumonia Status: Acute (9) Sepsis Status: Acute (10) Severe sepsis Status: Acute Comment Review of Relevant I have reviewed the following items fracisco (where applicable) has been applied. Labs Laboratory Tests Test 04/10/19 12:20 04/10/19 12:26 04/10/19 12:31 04/10/19 12:35 White Blood Count 8.7 x10^3/uL (4.0-11.0) Red Blood Count 5.01 x10^6/uL (3.50-5.40) Hemoglobin 15.0 g/dL (12.0-15.5) Hematocrit 45.9 % (36.0-47.0) Mean Corpuscular Volume 92 fL (79-100) Mean Corpuscular Hemoglobin 30 pg (25-35) Mean Corpuscular Hemoglobin Concent 33 g/dL (31-37) Red Cell Distribution Width 12.9 % (11.5-14.5) Platelet Count 176 x10^3/uL (140-400) Neutrophils (%) (Auto) 47 % (31-73) Lymphocytes (%) (Auto) 50 % (24-48) Monocytes (%) (Auto) 2 % (0-9) Eosinophils (%) (Auto) 0 % (0-3) Basophils (%) (Auto) 0 % (0-3) Neutrophils # (Auto) 4.1 x10^3/uL (1.8-7.7) Lymphocytes # (Auto) 4.4 x10^3/uL (1.0-4.8) Monocytes # (Auto) 0.2 x10^3/uL (0.0-1.1) Eosinophils # (Auto) 0.0 x10^3/uL (0.0-0.7) Basophils # (Auto) 0.0 x10^3/uL (0.0-0.2) Segmented Neutrophils % 40 % (35-66) Band Neutrophils % 2 % (0-9) Lymphocytes % 54 % (24-48) Monocytes % 3 % (0-10) Eosinophils % 1 % (0-5) Platelet Estimate Adequate (ADEQUATE) Platelet Clumps, EDTA Present Sodium Level 140 mmol/L (136-145) Potassium Level 3.6 mmol/L (3.5-5.1) Chloride Level 103 mmol/L (98-107) Carbon Dioxide Level 20 mmol/L (21-32) Anion Gap 17 (6-14) 14 mmol/L (6-14) Blood Urea Nitrogen 19 mg/dL (7-20) Creatinine 1.2 mg/dL (0.6-1.0) Estimated GFR (Cockcroft-Gault) 45.8 BUN/Creatinine Ratio 16 (6-20) Glucose Level 300 mg/dL (70-99) 288 mg/dL (70-99) Hemoglobin A1c 5.7 % (4.8-5.6) Lactic Acid Level 9.0 mmol/L (0.4-2.0) Calcium Level 9.4 mg/dL (8.5-10.1) Magnesium Level 2.5 mg/dL (1.8-2.4) Total Bilirubin 0.4 mg/dL (0.2-1.0) Aspartate Amino Transf (AST/SGOT) 128 U/L (15-37) Alanine Aminotransferase (ALT/SGPT) 135 U/L (14-59) Alkaline Phosphatase 83 U/L (46-116) Creatine Kinase 194 U/L (26-192) Troponin I Quantitative 0.633 ng/mL (0.000-0.055) OW-[id number]-[id number]-Type Natriuretic Peptide 409 pg/mL (0-124) Total Protein 6.8 g/dL (6.4-8.2) Albumin 3.4 g/dL (3.4-5.0) Albumin/Globulin Ratio 1.0 (1.0-1.7) Triglycerides Level 83 mg/dL (0-150) Cholesterol Level 168 mg/dL (0-200) LDL Cholesterol, Calculated 92 mg/dL (0-100) VLDL Cholesterol, Calculated 17 mg/dL (0-40) Non-HDL Cholesterol Calculated 109 mg/dL (0-129) HDL Cholesterol 59 mg/dL (40-60) Cholesterol/HDL Ratio 2.8 Lipase 534 U/L (73-393) Thyroid Stimulating Hormone (TSH) 3.367 uIU/mL (0.358-3.74) Glucose (Fingerstick) 269 mg/dL (70-99) Bedside Troponin I 0.37 ng/ml (<0.08) Bedside Hemoglobin 16.0 g/dL (12-15) Bedside Hematocrit 47 % (36-40) Bedside Sodium 139 mmol/L (135-145) Bedside Potassium 3.4 mmol/L (3.5-5.0) Bedside Chloride 106 mmol/L (98-110) Bedside Total CO2 22 mmol/L (23-32) Bedside Blood Urea Nitrogen 21 mg/dL (8-26) Bedside Creatinine 1.1 mg/dL (0.5-1.4) Bedside Ionized Calcium (Kayleigh) 1.22 mmol/L (1.13-1.32) Test 04/10/19 12:57 04/10/19 12:59 04/10/19 13:40 04/10/19 16:05 Prothrombin Time 18.8 SEC (11.7-14.0) Prothromb Time International Ratio 1.6 (0.8-1.1) D-Dimer (Annabelle) > 20.00 ug/mlFEU O2 Saturation 96 % (92-99) Arterial Blood pH 7.18 (7.35-7.45) Arterial Blood pCO2 at Patient Temp 38 mmHg (35-46) Arterial Blood pO2 at Patient Temp 103 mmHg (65-108) Arterial Blood HCO3 14 mmol/L (21-28) Arterial Blood Base Excess -14 mmol/L (-3-3) FiO2 100 Influenza Type A Antigen Negative (NEGATIVE) Influenza Type B Antigen Negative (NEGATIVE) Lactic Acid Level 3.9 mmol/L (0.4-2.0) Test 04/10/19 17:40 04/10/19 18:47 04/10/19 19:23 04/10/19 21:26 O2 Saturation 99 % (92-99) Arterial Blood pH 7.37 (7.35-7.45) Arterial Blood pCO2 at Patient Temp 39 mmHg (35-46) Arterial Blood pO2 at Patient Temp 329 mmHg (65-108) Arterial Blood HCO3 22 mmol/L (21-28) Arterial Blood Base Excess -3 mmol/L (-3-3) FiO2 100 Glucose (Fingerstick) 230 mg/dL (70-99) 208 mg/dL (70-99) Prothrombin Time 17.9 SEC (11.7-14.0) Prothromb Time International Ratio 1.5 (0.8-1.1) Activated Partial Thromboplast Time 53 SEC (24-38) Sodium Level 140 mmol/L (136-145) Potassium Level 3.1 mmol/L (3.5-5.1) Chloride Level 108 mmol/L (98-107) Carbon Dioxide Level 21 mmol/L (21-32) Anion Gap 11 (6-14) Blood Urea Nitrogen 28 mg/dL (7-20) Creatinine 0.9 mg/dL (0.6-1.0) Estimated GFR (Cockcroft-Gault) 63.9 Glucose Level 261 mg/dL (70-99) Calcium Level 7.9 mg/dL (8.5-10.1) Ionized Calcium 1.15 mmol/L (1.13-1.32) Phosphorus Level 3.7 mg/dL (2.6-4.7) Magnesium Level 2.8 mg/dL (1.8-2.4) Test 04/10/19 22:14 04/10/19 23:25 04/11/19 00:23 04/11/19 01:10 Glucose (Fingerstick) 202 mg/dL (70-99) 127 mg/dL (70-99) 134 mg/dL (70-99) Prothrombin Time 16.6 SEC (11.7-14.0) Prothromb Time International Ratio 1.4 (0.8-1.1) Activated Partial Thromboplast Time 41 SEC (24-38) Sodium Level 139 mmol/L (136-145) Potassium Level 2.9 mmol/L (3.5-5.1) Chloride Level 108 mmol/L (98-107) Carbon Dioxide Level 19 mmol/L (21-32) Anion Gap 12 (6-14) Blood Urea Nitrogen 30 mg/dL (7-20) Creatinine 1.0 mg/dL (0.6-1.0) Estimated GFR (Cockcroft-Gault) 56.6 Glucose Level 118 mg/dL (70-99) Calcium Level 8.2 mg/dL (8.5-10.1) Ionized Calcium 1.21 mmol/L (1.13-1.32) Phosphorus Level 2.8 mg/dL (2.6-4.7) Magnesium Level 3.4 mg/dL (1.8-2.4) Test 04/11/19 01:15 04/11/19 02:11 04/11/19 03:07 04/11/19 05:20 Glucose (Fingerstick) 100 mg/dL (70-99) 110 mg/dL (70-99) 119 mg/dL (70-99) White Blood Count 18.4 x10^3/uL (4.0-11.0) Red Blood Count 4.46 x10^6/uL (3.50-5.40) Hemoglobin 13.0 g/dL (12.0-15.5) Hematocrit 39.7 % (36.0-47.0) Mean Corpuscular Volume 89 fL (79-100) Mean Corpuscular Hemoglobin 29 pg (25-35) Mean Corpuscular Hemoglobin Concent 33 g/dL (31-37) Red Cell Distribution Width 13.0 % (11.5-14.5) Platelet Count 186 x10^3/uL (140-400) Neutrophils (%) (Auto) 90 % (31-73) Lymphocytes (%) (Auto) 6 % (24-48) Monocytes (%) (Auto) 4 % (0-9) Eosinophils (%) (Auto) 0 % (0-3) Basophils (%) (Auto) 0 % (0-3) Neutrophils # (Auto) 16.6 x10^3/uL (1.8-7.7) Lymphocytes # (Auto) 1.1 x10^3/uL (1.0-4.8) Monocytes # (Auto) 0.7 x10^3/uL (0.0-1.1) Eosinophils # (Auto) 0.0 x10^3/uL (0.0-0.7) Basophils # (Auto) 0.0 x10^3/uL (0.0-0.2) Segmented Neutrophils % 73 % (35-66) Band Neutrophils % 18 % (0-9) Lymphocytes % 3 % (24-48) Monocytes % 6 % (0-10) Platelet Estimate Adequate (ADEQUATE) Prothrombin Time 16.2 SEC (11.7-14.0) Prothromb Time International Ratio 1.3 (0.8-1.1) Activated Partial Thromboplast Time 47 SEC (24-38) Heparin Anti-Xa Act, Unfractionated 0.87 IU/mL (0.30-0.70) Sodium Level 138 mmol/L (136-145) Potassium Level 3.1 mmol/L (3.5-5.1) Chloride Level 108 mmol/L (98-107) Carbon Dioxide Level 18 mmol/L (21-32) Anion Gap 12 (6-14) Blood Urea Nitrogen 32 mg/dL (7-20) Creatinine 0.9 mg/dL (0.6-1.0) Estimated GFR (Cockcroft-Gault) 63.9 Glucose Level 180 mg/dL (70-99) Calcium Level 7.9 mg/dL (8.5-10.1) Ionized Calcium 1.20 mmol/L (1.13-1.32) Phosphorus Level 3.5 mg/dL (2.6-4.7) Magnesium Level 2.8 mg/dL (1.8-2.4) Test 04/11/19 05:25 04/11/19 07:50 04/11/19 08:19 04/11/19 10:02 Glucose (Fingerstick) 157 mg/dL (70-99) 202 mg/dL (70-99) 190 mg/dL (70-99) O2 Saturation 98 % (92-99) Arterial Blood pH 7.18 (7.35-7.45) Arterial Blood pH (Temp corrected) 7.25 Arterial Blood pCO2 at Patient Temp 45 mmHg (35-46) Arterial Blood pCO2 (Temp correct) 36 mmHg Arterial Blood pO2 at Patient Temp 136 mmHg (65-108) Arterial Blood pO2 (Temp corrected) 108 mmHg Arterial Blood HCO3 16 mmol/L (21-28) Arterial Blood Base Excess -12 mmol/L (-3-3) Test 04/11/19 11:22 04/11/19 11:40 04/11/19 12:26 04/11/19 13:37 Glucose (Fingerstick) 163 mg/dL (70-99) 129 mg/dL (70-99) 134 mg/dL (70-99) White Blood Count 17.3 x10^3/uL (4.0-11.0) Red Blood Count 3.91 x10^6/uL (3.50-5.40) Hemoglobin 11.4 g/dL (12.0-15.5) Hematocrit 34.7 % (36.0-47.0) Mean Corpuscular Volume 89 fL (79-100) Mean Corpuscular Hemoglobin 29 pg (25-35) Mean Corpuscular Hemoglobin Concent 33 g/dL (31-37) Red Cell Distribution Width 13.0 % (11.5-14.5) Platelet Count 157 x10^3/uL (140-400) Prothrombin Time 17.2 SEC (11.7-14.0) Prothromb Time International Ratio 1.4 (0.8-1.1) Activated Partial Thromboplast Time 127 SEC (24-38) Urine Collection Type Unknown Urine Color Yellow Urine Clarity Clear Urine pH 5.0 Urine Specific [place] 1.025 Urine Protein Negative mg/dL (NEG-TRACE) Urine Glucose (UA) 100 mg/dL (NEG) Urine Ketones (Stick) Negative mg/dL (NEG) Urine Blood Small (NEG) Urine Nitrite Negative (NEG) Urine Bilirubin Negative (NEG) Urine Urobilinogen Dipstick 0.2 mg/dL (0.2 mg/dL) Urine Leukocyte Esterase Negative (NEG) Urine RBC 11-20 /HPF (0-2) Urine WBC Occ /HPF (0-4) Urine Squamous Epithelial Cells Occ /LPF Urine Bacteria 0 /HPF (0-FEW) Urine Mucus Mod /LPF Sodium Level 140 mmol/L (136-145) Potassium Level 2.7 mmol/L (3.5-5.1) Chloride Level 111 mmol/L (98-107) Carbon Dioxide Level 14 mmol/L (21-32) Anion Gap 15 (6-14) Blood Urea Nitrogen 23 mg/dL (7-20) Creatinine 0.6 mg/dL (0.6-1.0) Estimated GFR (Cockcroft-Gault) 102.0 Glucose Level 133 mg/dL (70-99) Calcium Level 6.3 mg/dL (8.5-10.1) Ionized Calcium 1.01 mmol/L (1.13-1.32) Phosphorus Level 1.8 mg/dL (2.6-4.7) Magnesium Level 2.2 mg/dL (1.8-2.4) Urine Opiates Screen Neg (NEG) Urine Methadone Screen Neg (NEG) Urine Barbiturates Neg (NEG) Urine Phencyclidine Screen Neg (NEG) Urine Amphetamine/Methamphetamine Neg (NEG) Urine Benzodiazepines Screen Pos (NEG) Urine Cocaine Screen Neg (NEG) Urine Cannabinoids Screen Neg (NEG) Urine Ethyl Alcohol Neg (NEG) Test 04/11/19 14:36 04/11/19 15:40 04/11/19 17:06 04/11/19 17:45 Glucose (Fingerstick) 151 mg/dL (70-99) 157 mg/dL (70-99) 144 mg/dL (70-99) White Blood Count 16.4 x10^3/uL (4.0-11.0) Red Blood Count 3.79 x10^6/uL (3.50-5.40) Hemoglobin 11.1 g/dL (12.0-15.5) Hematocrit 33.4 % (36.0-47.0) Mean Corpuscular Volume 88 fL (79-100) Mean Corpuscular Hemoglobin 29 pg (25-35) Mean Corpuscular Hemoglobin Concent 33 g/dL (31-37) Red Cell Distribution Width 12.8 % (11.5-14.5) Platelet Count 147 x10^3/uL (140-400) Neutrophils (%) (Auto) 89 % (31-73) Lymphocytes (%) (Auto) 8 % (24-48) Monocytes (%) (Auto) 3 % (0-9) Eosinophils (%) (Auto) 0 % (0-3) Basophils (%) (Auto) 0 % (0-3) Neutrophils # (Auto) 14.7 x10^3/uL (1.8-7.7) Lymphocytes # (Auto) 1.2 x10^3/uL (1.0-4.8) Monocytes # (Auto) 0.5 x10^3/uL (0.0-1.1) Eosinophils # (Auto) 0.0 x10^3/uL (0.0-0.7) Basophils # (Auto) 0.0 x10^3/uL (0.0-0.2) Prothrombin Time 17.0 SEC (11.7-14.0) Prothromb Time International Ratio 1.4 (0.8-1.1) Activated Partial Thromboplast Time 37 SEC (24-38) Sodium Level 137 mmol/L (136-145) Potassium Level 3.2 mmol/L (3.5-5.1) Chloride Level 108 mmol/L (98-107) Carbon Dioxide Level 18 mmol/L (21-32) Anion Gap 11 (6-14) Blood Urea Nitrogen 21 mg/dL (7-20) Creatinine 0.7 mg/dL (0.6-1.0) Estimated GFR (Cockcroft-Gault) 85.4 Glucose Level 151 mg/dL (70-99) Calcium Level 6.9 mg/dL (8.5-10.1) Ionized Calcium 1.10 mmol/L (1.13-1.32) Phosphorus Level 2.5 mg/dL (2.6-4.7) Magnesium Level 2.2 mg/dL (1.8-2.4) Test 04/11/19 20:00 04/11/19 22:29 04/12/19 05:25 04/12/19 05:28 O2 Saturation 98 % (92-99) Arterial Blood pH 7.35 (7.35-7.45) Arterial Blood pH (Temp corrected) 7.39 Arterial Blood pCO2 at Patient Temp 28 mmHg (35-46) Arterial Blood pCO2 (Temp correct) 25 mmHg Arterial Blood pO2 at Patient Temp 135 mmHg (65-108) Arterial Blood pO2 (Temp corrected) 120 mmHg Arterial Blood HCO3 15 mmol/L (21-28) Arterial Blood Base Excess -9 mmol/L (-3-3) FiO2 50 Glucose (Fingerstick) 125 mg/dL (70-99) White Blood Count 16.4 x10^3/uL (4.0-11.0) Red Blood Count 3.44 x10^6/uL (3.50-5.40) Hemoglobin 10.0 g/dL (12.0-15.5) Hematocrit 30.2 % (36.0-47.0) Mean Corpuscular Volume 88 fL (79-100) Mean Corpuscular Hemoglobin 29 pg (25-35) Mean Corpuscular Hemoglobin Concent 33 g/dL (31-37) Red Cell Distribution Width 12.9 % (11.5-14.5) Platelet Count 152 x10^3/uL (140-400) Sodium Level 132 mmol/L (136-145) Potassium Level 4.2 mmol/L (3.5-5.1) Chloride Level 104 mmol/L (98-107) Carbon Dioxide Level 18 mmol/L (21-32) Anion Gap 10 (6-14) Blood Urea Nitrogen 23 mg/dL (7-20) Creatinine 0.8 mg/dL (0.6-1.0) Estimated GFR (Cockcroft-Gault) 73.2 BUN/Creatinine Ratio 29 (6-20) Glucose Level 136 mg/dL (70-99) Calcium Level 7.0 mg/dL (8.5-10.1) Total Bilirubin 0.2 mg/dL (0.2-1.0) Aspartate Amino Transf (AST/SGOT) 70 U/L (15-37) Alanine Aminotransferase (ALT/SGPT) 70 U/L (14-59) Alkaline Phosphatase 57 U/L (46-116) Total Protein 4.0 g/dL (6.4-8.2) Albumin 1.8 g/dL (3.4-5.0) Albumin/Globulin Ratio 0.8 (1.0-1.7) Test 04/12/19 07:10 O2 Saturation 97 % (92-99) Arterial Blood pH 7.37 (7.35-7.45) Arterial Blood pCO2 at Patient Temp 28 mmHg (35-46) Arterial Blood pO2 at Patient Temp 103 mmHg (65-108) Arterial Blood HCO3 16 mmol/L (21-28) Arterial Blood Base Excess -8 mmol/L (-3-3) FiO2 40 Laboratory Tests Test 04/11/19 10:02 04/11/19 11:22 04/11/19 11:40 04/11/19 12:26 Glucose (Fingerstick) 190 mg/dL (70-99) 163 mg/dL (70-99) 129 mg/dL (70-99) White Blood Count 17.3 x10^3/uL (4.0-11.0) Red Blood Count 3.91 x10^6/uL (3.50-5.40) Hemoglobin 11.4 g/dL (12.0-15.5) Hematocrit 34.7 % (36.0-47.0) Mean Corpuscular Volume 89 fL (79-100) Mean Corpuscular Hemoglobin 29 pg (25-35) Mean Corpuscular Hemoglobin Concent 33 g/dL (31-37) Red Cell Distribution Width 13.0 % (11.5-14.5) Platelet Count 157 x10^3/uL (140-400) Prothrombin Time 17.2 SEC (11.7-14.0) Prothromb Time International Ratio 1.4 (0.8-1.1) Activated Partial Thromboplast Time 127 SEC (24-38) Urine Collection Type Unknown Urine Color Yellow Urine Clarity Clear Urine pH 5.0 Urine Specific [place] 1.025 Urine Protein Negative mg/dL (NEG-TRACE) Urine Glucose (UA) 100 mg/dL (NEG) Urine Ketones (Stick) Negative mg/dL (NEG) Urine Blood Small (NEG) Urine Nitrite Negative (NEG) Urine Bilirubin Negative (NEG) Urine Urobilinogen Dipstick 0.2 mg/dL (0.2 mg/dL) Urine Leukocyte Esterase Negative (NEG) Urine RBC 11-20 /HPF (0-2) Urine WBC Occ /HPF (0-4) Urine Squamous Epithelial Cells Occ /LPF Urine Bacteria 0 /HPF (0-FEW) Urine Mucus Mod /LPF Sodium Level 140 mmol/L (136-145) Potassium Level 2.7 mmol/L (3.5-5.1) Chloride Level 111 mmol/L (98-107) Carbon Dioxide Level 14 mmol/L (21-32) Anion Gap 15 (6-14) Blood Urea Nitrogen 23 mg/dL (7-20) Creatinine 0.6 mg/dL (0.6-1.0) Estimated GFR (Cockcroft-Gault) 102.0 Glucose Level 133 mg/dL (70-99) Calcium Level 6.3 mg/dL (8.5-10.1) Ionized Calcium 1.01 mmol/L (1.13-1.32) Phosphorus Level 1.8 mg/dL (2.6-4.7) Magnesium Level 2.2 mg/dL (1.8-2.4) Urine Opiates Screen Neg (NEG) Urine Methadone Screen Neg (NEG) Urine Barbiturates Neg (NEG) Urine Phencyclidine Screen Neg (NEG) Urine Amphetamine/Methamphetamine Neg (NEG) Urine Benzodiazepines Screen Pos (NEG) Urine Cocaine Screen Neg (NEG) Urine Cannabinoids Screen Neg (NEG) Urine Ethyl Alcohol Neg (NEG) Test 04/11/19 13:37 04/11/19 14:36 04/11/19 15:40 04/11/19 17:06 Glucose (Fingerstick) 134 mg/dL (70-99) 151 mg/dL (70-99) 157 mg/dL (70-99) 144 mg/dL (70-99) Test 04/11/19 17:45 04/11/19 20:00 04/11/19 22:29 04/12/19 05:25 White Blood Count 16.4 x10^3/uL (4.0-11.0) 16.4 x10^3/uL (4.0-11.0) Red Blood Count 3.79 x10^6/uL (3.50-5.40) 3.44 x10^6/uL (3.50-5.40) Hemoglobin 11.1 g/dL (12.0-15.5) 10.0 g/dL (12.0-15.5) Hematocrit 33.4 % (36.0-47.0) 30.2 % (36.0-47.0) Mean Corpuscular Volume 88 fL (79-100) 88 fL (79-100) Mean Corpuscular Hemoglobin 29 pg (25-35) 29 pg (25-35) Mean Corpuscular Hemoglobin Concent 33 g/dL (31-37) 33 g/dL (31-37) Red Cell Distribution Width 12.8 % (11.5-14.5) 12.9 % (11.5-14.5) Platelet Count 147 x10^3/uL (140-400) 152 x10^3/uL (140-400) Neutrophils (%) (Auto) 89 % (31-73) Lymphocytes (%) (Auto) 8 % (24-48) Monocytes (%) (Auto) 3 % (0-9) Eosinophils (%) (Auto) 0 % (0-3) Basophils (%) (Auto) 0 % (0-3) Neutrophils # (Auto) 14.7 x10^3/uL (1.8-7.7) Lymphocytes # (Auto) 1.2 x10^3/uL (1.0-4.8) Monocytes # (Auto) 0.5 x10^3/uL (0.0-1.1) Eosinophils # (Auto) 0.0 x10^3/uL (0.0-0.7) Basophils # (Auto) 0.0 x10^3/uL (0.0-0.2) Prothrombin Time 17.0 SEC (11.7-14.0) Prothromb Time International Ratio 1.4 (0.8-1.1) Activated Partial Thromboplast Time 37 SEC (24-38) Sodium Level 137 mmol/L (136-145) Potassium Level 3.2 mmol/L (3.5-5.1) Chloride Level 108 mmol/L (98-107) Carbon Dioxide Level 18 mmol/L (21-32) Anion Gap 11 (6-14) Blood Urea Nitrogen 21 mg/dL (7-20) Creatinine 0.7 mg/dL (0.6-1.0) Estimated GFR (Cockcroft-Gault) 85.4 Glucose Level 151 mg/dL (70-99) Calcium Level 6.9 mg/dL (8.5-10.1) Ionized Calcium 1.10 mmol/L (1.13-1.32) Phosphorus Level 2.5 mg/dL (2.6-4.7) Magnesium Level 2.2 mg/dL (1.8-2.4) O2 Saturation 98 % (92-99) Arterial Blood pH 7.35 (7.35-7.45) Arterial Blood pH (Temp corrected) 7.39 Arterial Blood pCO2 at Patient Temp 28 mmHg (35-46) Arterial Blood pCO2 (Temp correct) 25 mmHg Arterial Blood pO2 at Patient Temp 135 mmHg (65-108) Arterial Blood pO2 (Temp corrected) 120 mmHg Arterial Blood HCO3 15 mmol/L (21-28) Arterial Blood Base Excess -9 mmol/L (-3-3) FiO2 50 Glucose (Fingerstick) 125 mg/dL (70-99) Test 04/12/19 05:28 04/12/19 07:10 Sodium Level 132 mmol/L (136-145) Potassium Level 4.2 mmol/L (3.5-5.1) Chloride Level 104 mmol/L (98-107) Carbon Dioxide Level 18 mmol/L (21-32) Anion Gap 10 (6-14) Blood Urea Nitrogen 23 mg/dL (7-20) Creatinine 0.8 mg/dL (0.6-1.0) Estimated GFR (Cockcroft-Gault) 73.2 BUN/Creatinine Ratio 29 (6-20) Glucose Level 136 mg/dL (70-99) Calcium Level 7.0 mg/dL (8.5-10.1) Total Bilirubin 0.2 mg/dL (0.2-1.0) Aspartate Amino Transf (AST/SGOT) 70 U/L (15-37) Alanine Aminotransferase (ALT/SGPT) 70 U/L (14-59) Alkaline Phosphatase 57 U/L (46-116) Total Protein 4.0 g/dL (6.4-8.2) Albumin 1.8 g/dL (3.4-5.0) Albumin/Globulin Ratio 0.8 (1.0-1.7) O2 Saturation 97 % (92-99) Arterial Blood pH 7.37 (7.35-7.45) Arterial Blood pCO2 at Patient Temp 28 mmHg (35-46) Arterial Blood pO2 at Patient Temp 103 mmHg (65-108) Arterial Blood HCO3 16 mmol/L (21-28) Arterial Blood Base Excess -8 mmol/L (-3-3) FiO2 40 Microbiology 04/10/19 Blood Culture - Preliminary, Resulted NO GROWTH AFTER 1 DAY Medications Current Medications Norepinephrine Bitartrate 8 mg/ Dextrose 258 ml @ 13.855 mls/ hr 1X ONCE IV Last administered on 04/10/19at 12:40; Start 04/10/19 at 12:30; Stop 04/10/19 at 12:31; Status DC Amiodarone HCl 450 mg/Dextrose 259 ml @ 33 mls/hr 1X ONCE IV Last administered on 04/10/19at 12:55; Start 04/10/19 at 12:45; Stop 04/10/19 at 20:35; Status DC Sodium Chloride 1,000 ml @ 1,000 mls/hr Q1H IV Last administered on 04/10/19at 12:20; Start 04/10/19 at 12:13; Stop 04/10/19 at 13:12; Status DC Midazolam HCl 50 mg/Sodium Chloride 50 ml @ 1 mls/hr 1X ONCE IV Last administered on 04/10/19at 13:35; Start 04/10/19 at 13:15; Stop 04/11/19 at 13:55; Status DC Potassium Chloride/Water 100 ml @ 50 mls/hr 1X ONCE IV ; Start 04/10/19 at 13:15; Stop 04/10/19 at 13:16; Status DC Etomidate (Amidate) 20 mg STK-MED ONCE IV ; Start 04/10/19 at 13:14; Stop 04/10/19 at 13:14; Status DC Midazolam HCl (Versed) 5 mg STK-MED ONCE .ROUTE ; Start 04/10/19 at 13:15; Stop 04/10/19 at 13:15; Status DC Succinylcholine Chloride (Anectine) 200 mg STK-MED ONCE .ROUTE ; Start 04/10/19 at 13:15; Stop 04/10/19 at 13:15; Status DC Potassium Chloride/Water 100 ml @ 100 mls/hr Q1H IV ; Start 04/10/19 at 14:00; Stop 04/10/19 at 15:59; Status DC Sodium Bicarbonate (Sodium Bicarb Adult 8.4% Syr) 50 meq 1X ONCE IV Last administered on 04/10/19at 17:17; Start 04/10/19 at 13:30; Stop 04/10/19 at 13:31; Status DC Sodium Chloride 1,000 ml @ 150 mls/hr Q6H40M IV ; Start 04/10/19 at 13:28; Stop 04/11/19 at 00:46; Status DC Piperacillin Sod/ Tazobactam Sod 3.375 gm/Sodium Chloride 50 ml @ 100 mls/hr 1X ONCE IV Last administered on 04/10/19at 18:35; Start 04/10/19 at 13:45; Stop 04/10/19 at 14:14; Status DC Vancomycin HCl 250 ml @ 250 mls/hr 1X ONCE IV ; Start 04/10/19 at 13:45; Stop 04/10/19 at 14:44; Status UNV Sodium Chloride 1,000 ml @ 1,000 mls/hr 1X ONCE IV Last administered on 04/10/19at 13:45; Start 04/10/19 at 13:45; Stop 04/10/19 at 14:44; Status DC Vancomycin HCl 1.75 gm/Sodium Chloride 500 ml @ 250 mls/hr 1X ONCE IV ; Start 04/10/19 at 14:00; Stop 04/10/19 at 15:59; Status DC Iodixanol (Visipaque 320) 100 ml STK-MED ONCE .ROUTE ; Start 04/10/19 at 14:01; Stop 04/10/19 at 14:02; Status DC Heparin Sodium/ Sodium Chloride 500 ml @ As Directed STK-MED ONCE .ROUTE ; Start 04/10/19 at 14:02; Stop 04/10/19 at 14:02; Status DC Lidocaine HCl (Xylocaine-Mpf 1% 2ml Vial) 2 ml STK-MED ONCE .ROUTE ; Start 04/10/19 at 14:02; Stop 04/10/19 at 14:02; Status DC Lidocaine HCl (Lidocaine 1% 20ml Vial) 20 ml STK-MED ONCE .ROUTE ; Start 04/10/19 at 14:03; Stop 04/10/19 at 14:04; Status DC Heparin Sodium (Porcine) (Heparin Sodium) 10,000 unit STK-MED ONCE .ROUTE ; Start 04/10/19 at 15:16; Stop 04/10/19 at 15:16; Status DC Heparin Sodium/ Sodium Chloride (HEPARIN for ARTERIAL LINE FLUSH) 1,000 unit 1X ONCE IART Last administered on 04/10/19at 15:42; Start 04/10/19 at 15:30; Stop 04/10/19 at 23:39; Status DC Iodixanol (Visipaque 320) 104 ml 1X ONCE IART Last administered on 04/10/19at 15:42; Start 04/10/19 at 15:30; Stop 04/10/19 at 23:39; Status DC Heparin Sodium (Porcine) (Heparin Sodium) 4,000 unit 1X ONCE IV Last administered on 04/10/19at 15:42; Start 04/10/19 at 15:30; Stop 04/10/19 at 23:39; Status DC Lidocaine HCl (Lidocaine 1% 20ml Vial) 20 ml 1X ONCE INJ Last administered on 04/10/19at 15:42; Start 04/10/19 at 15:30; Stop 04/10/19 at 23:39; Status DC Atropine Sulfate (ATROPINE 1mg SYRINGE) 1 mg 1X ONCE IV Last administered on 04/10/19at 12:42; Start 04/10/19 at 12:42; Stop 04/10/19 at 15:42; Status DC Midazolam HCl (Versed) 5 mg 1X ONCE IV Last administered on 04/10/19at 13:15; Start 04/10/19 at 13:15; Stop 04/10/19 at 15:42; Status DC Vecuronium [place] (Norcuron Bolus) 10 mg STK-MED ONCE IV ; Start 04/10/19 at 16:54; Stop 04/10/19 at 16:55; Status DC Fentanyl Citrate (Fentanyl 2ml Vial) 100 mcg STK-MED ONCE .ROUTE ; Start 04/10/19 at 16:55; Stop 04/10/19 at 16:56; Status DC Fentanyl Citrate (Fentanyl 2ml Vial) 100 mcg 1X ONCE IV Last administered on 04/10/19at 17:16; Start 04/10/19 at 17:00; Stop 04/10/19 at 17:01; Status DC Midazolam HCl (Versed) 2 mg 1X ONCE IV ; Start 04/10/19 at 17:00; Stop 04/10/19 at 17:01; Status DC Magnesium Sulfate/ Dextrose 100 ml @ 100 mls/hr 1X ONCE IV Last administered on 04/10/19at 17:16; Start 04/10/19 at 18:00; Stop 04/10/19 at 18:59; Status DC Buspirone HCl (Buspar) 30 mg Q8HRS NG Last administered on 04/11/19at 21:13; Start 04/10/19 at 17:00; Stop 04/12/19 at 05:17; Status DC Acetaminophen (Tylenol) 650 mg Q4H NG Last administered on 04/12/19at 00:27; Start 04/10/19 at 17:00; Stop 04/12/19 at 03:15; Status DC Artificial Tears (Artificial Tears) 1 drop Q6HRS OU Last administered on 04/12/19at 00:27; Start 04/10/19 at 18:00; Stop 04/12/19 at 05:17; Status DC Artificial Tears (Artificial Tears) 1 drop PRN Q15MIN PRN OU DRY EYE; Start 04/10/19 at 17:00 Heparin Sodium (Porcine) (Heparin Sodium) 5,000 unit BID SQ ; Start 04/10/19 at 21:00; Status Cancel Pantoprazole Sodium (PROTONIX VIAL for IV PUSH) 40 mg DAILY IVP Last administered on 04/12/19at 09:05; Start 04/10/19 at 18:00 Fentanyl Citrate 30 ml @ 0 mls/hr CONT PRN IV PER PROTOCOL. Last administered on 04/12/19at 04:27; Start 04/10/19 at 17:00 Propofol 100 ml @ 0 mls/hr CONT PRN IV PER PROTOCOL. Last administered on 04/10/19at 22:36; Start 04/10/19 at 17:00 Midazolam HCl 50 mg/Sodium Chloride 50 ml @ 0 mls/hr CONT PRN IV PER PROTOCOL. Last administered on 04/12/19at 00:27; Start 04/10/19 at 17:00 Vecuronium [place] (Norcuron Bolus) 7 mg PRN Q1HR PRN IV SHIVERING Last administered on 04/11/19at 15:48; Start 04/10/19 at 17:00 Heparin Sodium/ Dextrose 250 ml @ 0 mls/hr CONT PRN IV PER PROTOCOL; Start 04/10/19 at 17:30; Stop 04/10/19 at 23:42; Status DC Heparin Sodium (Porcine) (Heparin Sodium) 2,150 unit PRN Q6HRS PRN IV FOR UFH LEVEL LESS THAN 0.2; Start 04/10/19 at 17:30; Stop 04/10/19 at 23:39; Status DC Heparin Sodium (Porcine) (Heparin Sodium) 1,050 unit PRN Q6HRS PRN IV FOR UFH LEVEL 0.2 - 0.29; Start 04/10/19 at 17:30; Stop 04/10/19 at 23:39; Status DC Hydralazine HCl (Apresoline Inj) 10 mg PRN Q6HRS PRN IVP ELEVATED BP, SEE COMMENTS; Start 04/10/19 at 18:00 Hydralazine HCl (Apresoline Inj) 20 mg STK-MED ONCE .ROUTE ; Start 04/10/19 at 17:56; Stop 04/10/19 at 17:56; Status DC Iohexol (Omnipaque 350 Mg/ml) 75 ml 1X ONCE IV Last administered on 04/10/19at 18:45; Start 04/10/19 at 18:45; Stop 04/10/19 at 18:46; Status DC Insulin Human Regular 100 unit/ Sodium Chloride 101 ml @ 0 mls/hr CONT PRN IV SEE I/O RECORD Last administered on 04/11/19at 10:23; Start 04/10/19 at 19:30; Stop 04/12/19 at 03:15; Status DC Magnesium Sulfate/ Dextrose 100 ml @ 100 mls/hr PRN DAILY PRN IV MAG level 2.4-3.0mg/dl Last administered on 04/11/19at 08:44; Start 04/10/19 at 20:30 Potassium Chloride/Water 100 ml @ 100 mls/hr PRN DAILY PRN IV K+ level 3.1- 3.4mEq/L Last administered on 04/11/19at 06:50; Start 04/10/19 at 20:30 Magnesium Sulfate/ Dextrose 100 ml @ 100 mls/hr 1X PRN IV MAG level 2.4- 3.0mg/dl Last administered on 04/10/19at 22:17; Start 04/10/19 at 22:00; Stop 04/11/19 at 01:56; Status DC Potassium Chloride/Water 100 ml @ 100 mls/hr 1X PRN IV K+ level 3.1-3.4mEq/L Last administered on 04/10/19at 22:16; Start 04/10/19 at 22:00; Stop 04/11/19 at 01:55; Status DC Norepinephrine Bitartrate 8 mg/ Dextrose 258 ml @ 13.855 mls/ hr CONT PRN IV PER PROTOCOL Last administered on 04/10/19at 22:43; Start 04/10/19 at 22:45 Heparin Sodium/ Dextrose 250 ml @ 0 mls/hr CONT PRN IV PER PROTOCOL Last administered on 04/11/19at 00:43; Start 04/10/19 at 23:45; Stop 04/11/19 at 09:36; Status DC Heparin Sodium (Porcine) (Heparin Sodium) 1,800 unit PRN Q6HRS PRN IV FOR UFH LEVEL LESS THAN 0.2; Start 04/10/19 at 23:45; Stop 04/11/19 at 09:54; Status DC Amiodarone HCl 450 mg/Dextrose 259 ml @ 0 mls/hr CONT PRN IV SEE I/O RECORD Last administered on 04/11/19at 19:36; Start 04/11/19 at 00:00; Stop 04/11/19 at 19:36; Status DC Dextrose/Sodium Chloride 1,000 ml @ 75 mls/hr [id number] IV Last administered on 04/11/19at 01:57; Start 04/11/19 at 01:00; Stop 04/11/19 at 10:53; Status DC Potassium Chloride/Water 100 ml @ 50 mls/hr PRN DAILY PRN IV K+ level less than 3.1 mEq/l; Start 04/11/19 at 02:00; Status Cancel Potassium Chloride/Water 100 ml @ 100 mls/hr PRN Q1HR PRN IV K<3.1; Start 04/11/19 at 02:00 Magnesium Sulfate/ Dextrose 100 ml @ 100 mls/hr PRN DAILY PRN IV MAG level 2.4-3.0mg/dl; Start 04/11/19 at 06:45; Status UNV Potassium Chloride/Water 100 ml @ 100 mls/hr PRN DAILY PRN IV K+ level 3.1- 3.4mEq/L; Start 04/11/19 at 06:45; Status UNV Atropine Sulfate (ATROPINE 0.5mg SYRINGE) 0.25 mg 1X ONCE IM ; Start 04/11/19 at 09:45; Stop 04/11/19 at 09:38; Status DC Atropine Sulfate (ATROPINE 1mg SYRINGE) 0.25 mg 1X ONCE IM Last administered on 04/11/19at 09:55; Start 04/11/19 at 09:45; Stop 04/11/19 at 09:46; Status DC Dopamine HCl/ Dextrose 250 ml @ 6.676 mls/ hr CONT PRN IV SEE I/O RECORD Last administered on 04/11/19at 09:55; Start 04/11/19 at 10:00 Sodium Chloride 1,000 ml @ 75 mls/hr [id number] IV Last administered on 04/11/19at 19:36; Start 04/11/19 at 12:00 Heparin Sodium (Porcine) (Heparin Sodium) 5,000 unit BID SQ Last administered on 04/12/19at 09:07; Start 04/11/19 at 21:00 Atropine Sulfate (ATROPINE 1mg SYRINGE) 1 mg STK-MED ONCE .ROUTE ; Start 04/10/19 at 15:16; Stop 04/11/19 at 15:16; Status DC Amiodarone HCl 450 mg/Dextrose 259 ml @ 33 mls/hr CONT PRN PRN IV SEE I/O RECORD; Start 04/12/19 at 08:15 Active Scripts Active Reported Celebrex (Celecoxib) 100 Mg Capsule 1 Cap PO BID Verapamil Er (Verapamil Hcl) 240 Mg Cap24h.pel 1 Cap PO DAILY Vitals/I & O Vital Sign - Last 24 Hours 04/11/19 04/11/19 04/11/19 04/11/19 10:30 10:41 10:45 11:00 Temp 90.3 91.0 91.4 90.3 91.0 91.4 Pulse 52 56 46 Resp 20 20 20 20 B/P (MAP) 110/42 (64) 116/44 (68) 138/52 (80) Pulse Ox 97 100 97 98 O2 Delivery Ventilator Ventilator Ventilator Ventilator 04/11/19 04/11/19 04/11/19 04/11/19 11:00 11:06 11:20 12:00 Temp 91.4 91.4 91.4 Pulse 42 Resp 20 20 B/P (MAP) 106/52 (70) Pulse Ox 100 100 99 O2 Delivery Ventilator Ventilator Ventilator Ventilator 04/11/19 04/11/19 04/11/19 04/11/19 12:00 12:00 12:35 13:00 Temp 91.4 89.6 89.6 Pulse 42 Resp 20 B/P (MAP) 98/49 (65) Pulse Ox 99 100 O2 Delivery Mechanical Ventilator Ventilator Ventilator Ventilator 04/11/19 04/11/19 04/11/19 04/11/19 13:00 14:00 14:00 14:20 Temp 89.6 89.2 89.2 89.2 Pulse 40 Resp 20 B/P (MAP) 91/46 (61) Pulse Ox 100 96 O2 Delivery Ventilator Ventilator Ventilator Ventilator 04/11/19 04/11/19 04/11/19 04/11/19 15:00 15:00 16:00 16:00 Temp 90.5 90.5 92.5 90.5 Pulse 43 Resp 20 B/P (MAP) 97/46 (63) Pulse Ox 100 O2 Delivery Ventilator Ventilator Mechanical Ventilator Ventilator 04/11/19 04/11/19 04/11/19 04/11/19 16:00 16:35 16:37 17:00 Temp 93.5 94.3 93.5 94.3 Pulse 46 46 Resp 20 20 20 B/P (MAP) 98/52 (67) 122/54 (76) Pulse Ox 100 100 100 100 O2 Delivery Ventilator Ventilator Ventilator Ventilator 04/11/19 04/11/19 04/11/19 04/11/19 17:00 17:40 18:00 18:00 Temp 93.2 93.2 93.2 93.2 Pulse 46 Resp 20 20 B/P (MAP) 126/50 (75) Pulse Ox 100 100 O2 Delivery Ventilator Ventilator Ventilator Ventilator 04/11/19 04/11/19 04/11/19 04/11/19 19:00 19:00 19:40 20:00 Temp 92.6 93.7 94.2 92.6 Pulse 46 Resp 20 B/P (MAP) 102/42 (62) Pulse Ox 98 O2 Delivery Ventilator Ventilator Mechanical Ventilator Ventilator 04/11/19 04/11/19 04/11/19 04/11/19 20:00 20:20 20:57 21:00 Temp 94.3 95.1 95.1 94.3 95.1 Pulse 46 53 Resp 20 20 B/P (MAP) 98/48 (65) 105/50 (68) Pulse Ox 98 100 100 O2 Delivery Ventilator Ventilator Ventilator Ventilator 04/11/19 04/11/19 04/11/19 04/11/19 22:00 23:00 23:00 23:19 Temp 96.8 96.4 96.4 96.8 96.4 Pulse 52 54 Resp 20 20 B/P (MAP) 100/50 (67) 106/57 (73) Pulse Ox 100 100 100 O2 Delivery Ventilator Ventilator Ventilator Ventilator 04/12/19 04/12/19 04/12/19 04/12/19 00:00 00:00 00:20 01:00 Temp 95.6 95.6 95.4 95.6 Pulse 52 Resp 20 B/P (MAP) 92/46 (61) Pulse Ox 100 O2 Delivery Ventilator Ventilator Mechanical Ventilator Ventilator 04/12/19 04/12/19 04/12/19 04/12/19 01:00 01:42 02:00 02:00 Temp 95.4 96.0 96.9 95.4 96.9 Pulse 52 54 Resp 20 20 B/P (MAP) 90/46 (61) 92/41 (58) Pulse Ox 100 100 100 O2 Delivery Ventilator Ventilator Ventilator Ventilator 04/12/19 04/12/19 04/12/19 04/12/19 03:00 03:00 03:04 04:00 Temp 97.4 97.4 98.0 97.4 98.0 Pulse 55 55 Resp 20 20 B/P (MAP) 90/41 (57) 92/40 (57) Pulse Ox 100 100 100 O2 Delivery Ventilator Ventilator Ventilator Ventilator 04/12/19 04/12/19 04/12/19 04/12/19 04:00 04:15 04:57 05:00 Temp 97.4 98.8 98.8 Pulse 54 Resp 20 B/P (MAP) 91/40 (57) Pulse Ox 100 100 O2 Delivery Ventilator Mechanical Ventilator Ventilator 04/12/19 04/12/19 04/12/19 04/12/19 05:21 06:00 07:00 07:06 Temp 99.0 99.0 Pulse 54 54 Resp 20 20 B/P (MAP) 93/40 (57) 132/56 (81) Pulse Ox 100 100 100 100 O2 Delivery Ventilator Ventilator Ventilator Ventilator 04/12/19 04/12/19 04/12/19 08:00 08:00 09:00 Temp 99.3 99.3 Pulse 54 55 Resp 20 20 B/P (MAP) 106/44 (64) 95/40 (58) Pulse Ox 100 100 O2 Delivery Ventilator Mechanical Ventilator Ventilator Intake and Output 04/11/19 04/11/19 04/12/19 15:00 23:00 07:00 Intake Total 2596 ml 913.14 ml 1248 ml Output Total 725 ml 335 ml 185 ml Balance 1871 ml 578.14 ml 1063 ml BHARGAVI WILKS MD Apr 12, 2019 10:02
[2019-04-12] MEDS: PROPOFOL 100 ML IV PRN ×3 (10:42→23:59)
[2019-04-12] MEDS: ACETAMINOPHEN 650 MG/20.3 ML SOLUTION. PEG PRN (11:36)
[2019-04-12] MEDS: AMIODARONE 450 MG in IV DEXTROSE 5% 250 ML IV PRN (11:52)
--- NOTE | 2019-04-12 13:11 | PDOC ---
PROGRESS NOTES Subjective Subjective Patient seen and examined Objective Objective Vital Signs Date Time Temp Pulse Resp B/P (MAP) Pulse Ox O2 Delivery O2 Flow Rate FiO2 04/12/19 13:00 58 20 99/44 (62) 100 Ventilator 04/12/19 12:00 100.4 100.4 Intake and Output 04/12/19 06:59 Intake Total 4757.14 ml Output Total 1275 ml Balance 3482.14 ml Intake IV Total 2757.14 ml Blood Product IV Normal Saline Flush 2000 ml Output Urine Total 1275 ml Physical Exam Abdomen: Normal bowel sounds Heart: Regular rate General: Other (intubated) Lungs: Other (mildly decreased breath sounds) Assessment Assessment Problems Medical Problems: (1) Acute respiratory acidosis Status: Acute (2) Cardiorespiratory arrest Status: Acute (3) Elevated d-dimer Status: Acute (4) Elevated troponin Status: Acute (5) Hyperglycemia Status: Acute (6) Hypokalemia Status: Acute (7) NSTEMI (non-ST elevated myocardial infarction) Status: Acute (8) Pneumonia Status: Acute (9) Sepsis Status: Acute (10) Severe sepsis Status: Acute 1. Cardiac arrest from VT/VF. Patient being tapered off hypothermia protocol. Cardiac catheterization showed nonobstructive coronary artery disease with normal left ventricle systolic function. Telemetry showed sinus bradycardia without any VT/VF. CTA of the chest did not show any acute pulmonary embolism. Continue amiodarone infusion per protocol. Plan for AICD implantation for secondary prevention of sudden cardiac once patient is extubated. 2. Acute respiratory failure secondary to #1 s/p intubation and sedation. Continue vent management per pulmonary team. Attempting to wean today. 3. Hypertension: Controlled 4. Severe sinus bradycardia, could be related to hypokalemia. Low-dose dopamine infusion for chronotropic support. Comment Review of Relevant I have reviewed the following items fracisco (where applicable) has been applied. Labs Laboratory Tests Test 04/10/19 13:40 04/10/19 16:05 04/10/19 17:40 04/10/19 18:47 Influenza Type A Antigen Negative (NEGATIVE) Influenza Type B Antigen Negative (NEGATIVE) Lactic Acid Level 3.9 mmol/L (0.4-2.0) O2 Saturation 99 % (92-99) Arterial Blood pH 7.37 (7.35-7.45) Arterial Blood pCO2 at Patient Temp 39 mmHg (35-46) Arterial Blood pO2 at Patient Temp 329 mmHg (65-108) Arterial Blood HCO3 22 mmol/L (21-28) Arterial Blood Base Excess -3 mmol/L (-3-3) FiO2 100 Glucose (Fingerstick) 230 mg/dL (70-99) Test 04/10/19 19:23 04/10/19 21:26 04/10/19 22:14 04/10/19 23:25 Prothrombin Time 17.9 SEC (11.7-14.0) Prothromb Time International Ratio 1.5 (0.8-1.1) Activated Partial Thromboplast Time 53 SEC (24-38) Sodium Level 140 mmol/L (136-145) Potassium Level 3.1 mmol/L (3.5-5.1) Chloride Level 108 mmol/L (98-107) Carbon Dioxide Level 21 mmol/L (21-32) Anion Gap 11 (6-14) Blood Urea Nitrogen 28 mg/dL (7-20) Creatinine 0.9 mg/dL (0.6-1.0) Estimated GFR (Cockcroft-Gault) 63.9 Glucose Level 261 mg/dL (70-99) Calcium Level 7.9 mg/dL (8.5-10.1) Ionized Calcium 1.15 mmol/L (1.13-1.32) Phosphorus Level 3.7 mg/dL (2.6-4.7) Magnesium Level 2.8 mg/dL (1.8-2.4) Glucose (Fingerstick) 208 mg/dL (70-99) 202 mg/dL (70-99) 127 mg/dL (70-99) Test 04/11/19 00:23 04/11/19 01:10 04/11/19 01:15 04/11/19 02:11 Glucose (Fingerstick) 134 mg/dL (70-99) 100 mg/dL (70-99) 110 mg/dL (70-99) Prothrombin Time 16.6 SEC (11.7-14.0) Prothromb Time International Ratio 1.4 (0.8-1.1) Activated Partial Thromboplast Time 41 SEC (24-38) Sodium Level 139 mmol/L (136-145) Potassium Level 2.9 mmol/L (3.5-5.1) Chloride Level 108 mmol/L (98-107) Carbon Dioxide Level 19 mmol/L (21-32) Anion Gap 12 (6-14) Blood Urea Nitrogen 30 mg/dL (7-20) Creatinine 1.0 mg/dL (0.6-1.0) Estimated GFR (Cockcroft-Gault) 56.6 Glucose Level 118 mg/dL (70-99) Calcium Level 8.2 mg/dL (8.5-10.1) Ionized Calcium 1.21 mmol/L (1.13-1.32) Phosphorus Level 2.8 mg/dL (2.6-4.7) Magnesium Level 3.4 mg/dL (1.8-2.4) Test 04/11/19 03:07 04/11/19 05:20 04/11/19 05:25 04/11/19 07:50 Glucose (Fingerstick) 119 mg/dL (70-99) 157 mg/dL (70-99) White Blood Count 18.4 x10^3/uL (4.0-11.0) Red Blood Count 4.46 x10^6/uL (3.50-5.40) Hemoglobin 13.0 g/dL (12.0-15.5) Hematocrit 39.7 % (36.0-47.0) Mean Corpuscular Volume 89 fL (79-100) Mean Corpuscular Hemoglobin 29 pg (25-35) Mean Corpuscular Hemoglobin Concent 33 g/dL (31-37) Red Cell Distribution Width 13.0 % (11.5-14.5) Platelet Count 186 x10^3/uL (140-400) Neutrophils (%) (Auto) 90 % (31-73) Lymphocytes (%) (Auto) 6 % (24-48) Monocytes (%) (Auto) 4 % (0-9) Eosinophils (%) (Auto) 0 % (0-3) Basophils (%) (Auto) 0 % (0-3) Neutrophils # (Auto) 16.6 x10^3/uL (1.8-7.7) Lymphocytes # (Auto) 1.1 x10^3/uL (1.0-4.8) Monocytes # (Auto) 0.7 x10^3/uL (0.0-1.1) Eosinophils # (Auto) 0.0 x10^3/uL (0.0-0.7) Basophils # (Auto) 0.0 x10^3/uL (0.0-0.2) Segmented Neutrophils % 73 % (35-66) Band Neutrophils % 18 % (0-9) Lymphocytes % 3 % (24-48) Monocytes % 6 % (0-10) Platelet Estimate Adequate (ADEQUATE) Prothrombin Time 16.2 SEC (11.7-14.0) Prothromb Time International Ratio 1.3 (0.8-1.1) Activated Partial Thromboplast Time 47 SEC (24-38) Heparin Anti-Xa Act, Unfractionated 0.87 IU/mL (0.30-0.70) Sodium Level 138 mmol/L (136-145) Potassium Level 3.1 mmol/L (3.5-5.1) Chloride Level 108 mmol/L (98-107) Carbon Dioxide Level 18 mmol/L (21-32) Anion Gap 12 (6-14) Blood Urea Nitrogen 32 mg/dL (7-20) Creatinine 0.9 mg/dL (0.6-1.0) Estimated GFR (Cockcroft-Gault) 63.9 Glucose Level 180 mg/dL (70-99) Calcium Level 7.9 mg/dL (8.5-10.1) Ionized Calcium 1.20 mmol/L (1.13-1.32) Phosphorus Level 3.5 mg/dL (2.6-4.7) Magnesium Level 2.8 mg/dL (1.8-2.4) O2 Saturation 98 % (92-99) Arterial Blood pH 7.18 (7.35-7.45) Arterial Blood pH (Temp corrected) 7.25 Arterial Blood pCO2 at Patient Temp 45 mmHg (35-46) Arterial Blood pCO2 (Temp correct) 36 mmHg Arterial Blood pO2 at Patient Temp 136 mmHg (65-108) Arterial Blood pO2 (Temp corrected) 108 mmHg Arterial Blood HCO3 16 mmol/L (21-28) Arterial Blood Base Excess -12 mmol/L (-3-3) Test 04/11/19 08:19 04/11/19 10:02 04/11/19 11:22 04/11/19 11:40 Glucose (Fingerstick) 202 mg/dL (70-99) 190 mg/dL (70-99) 163 mg/dL (70-99) White Blood Count 17.3 x10^3/uL (4.0-11.0) Red Blood Count 3.91 x10^6/uL (3.50-5.40) Hemoglobin 11.4 g/dL (12.0-15.5) Hematocrit 34.7 % (36.0-47.0) Mean Corpuscular Volume 89 fL (79-100) Mean Corpuscular Hemoglobin 29 pg (25-35) Mean Corpuscular Hemoglobin Concent 33 g/dL (31-37) Red Cell Distribution Width 13.0 % (11.5-14.5) Platelet Count 157 x10^3/uL (140-400) Prothrombin Time 17.2 SEC (11.7-14.0) Prothromb Time International Ratio 1.4 (0.8-1.1) Activated Partial Thromboplast Time 127 SEC (24-38) Urine Collection Type Unknown Urine Color Yellow Urine Clarity Clear Urine pH 5.0 Urine Specific [place] 1.025 Urine Protein Negative mg/dL (NEG-TRACE) Urine Glucose (UA) 100 mg/dL (NEG) Urine Ketones (Stick) Negative mg/dL (NEG) Urine Blood Small (NEG) Urine Nitrite Negative (NEG) Urine Bilirubin Negative (NEG) Urine Urobilinogen Dipstick 0.2 mg/dL (0.2 mg/dL) Urine Leukocyte Esterase Negative (NEG) Urine RBC 11-20 /HPF (0-2) Urine WBC Occ /HPF (0-4) Urine Squamous Epithelial Cells Occ /LPF Urine Bacteria 0 /HPF (0-FEW) Urine Mucus Mod /LPF Sodium Level 140 mmol/L (136-145) Potassium Level 2.7 mmol/L (3.5-5.1) Chloride Level 111 mmol/L (98-107) Carbon Dioxide Level 14 mmol/L (21-32) Anion Gap 15 (6-14) Blood Urea Nitrogen 23 mg/dL (7-20) Creatinine 0.6 mg/dL (0.6-1.0) Estimated GFR (Cockcroft-Gault) 102.0 Glucose Level 133 mg/dL (70-99) Calcium Level 6.3 mg/dL (8.5-10.1) Ionized Calcium 1.01 mmol/L (1.13-1.32) Phosphorus Level 1.8 mg/dL (2.6-4.7) Magnesium Level 2.2 mg/dL (1.8-2.4) Urine Opiates Screen Neg (NEG) Urine Methadone Screen Neg (NEG) Urine Barbiturates Neg (NEG) Urine Phencyclidine Screen Neg (NEG) Urine Amphetamine/Methamphetamine Neg (NEG) Urine Benzodiazepines Screen Pos (NEG) Urine Cocaine Screen Neg (NEG) Urine Cannabinoids Screen Neg (NEG) Urine Ethyl Alcohol Neg (NEG) Test 04/11/19 12:26 04/11/19 13:37 04/11/19 14:36 04/11/19 15:40 Glucose (Fingerstick) 129 mg/dL (70-99) 134 mg/dL (70-99) 151 mg/dL (70-99) 157 mg/dL (70-99) Test 04/11/19 17:06 04/11/19 17:45 04/11/19 20:00 04/11/19 22:29 Glucose (Fingerstick) 144 mg/dL (70-99) 125 mg/dL (70-99) White Blood Count 16.4 x10^3/uL (4.0-11.0) Red Blood Count 3.79 x10^6/uL (3.50-5.40) Hemoglobin 11.1 g/dL (12.0-15.5) Hematocrit 33.4 % (36.0-47.0) Mean Corpuscular Volume 88 fL (79-100) Mean Corpuscular Hemoglobin 29 pg (25-35) Mean Corpuscular Hemoglobin Concent 33 g/dL (31-37) Red Cell Distribution Width 12.8 % (11.5-14.5) Platelet Count 147 x10^3/uL (140-400) Neutrophils (%) (Auto) 89 % (31-73) Lymphocytes (%) (Auto) 8 % (24-48) Monocytes (%) (Auto) 3 % (0-9) Eosinophils (%) (Auto) 0 % (0-3) Basophils (%) (Auto) 0 % (0-3) Neutrophils # (Auto) 14.7 x10^3/uL (1.8-7.7) Lymphocytes # (Auto) 1.2 x10^3/uL (1.0-4.8) Monocytes # (Auto) 0.5 x10^3/uL (0.0-1.1) Eosinophils # (Auto) 0.0 x10^3/uL (0.0-0.7) Basophils # (Auto) 0.0 x10^3/uL (0.0-0.2) Prothrombin Time 17.0 SEC (11.7-14.0) Prothromb Time International Ratio 1.4 (0.8-1.1) Activated Partial Thromboplast Time 37 SEC (24-38) Sodium Level 137 mmol/L (136-145) Potassium Level 3.2 mmol/L (3.5-5.1) Chloride Level 108 mmol/L (98-107) Carbon Dioxide Level 18 mmol/L (21-32) Anion Gap 11 (6-14) Blood Urea Nitrogen 21 mg/dL (7-20) Creatinine 0.7 mg/dL (0.6-1.0) Estimated GFR (Cockcroft-Gault) 85.4 Glucose Level 151 mg/dL (70-99) Calcium Level 6.9 mg/dL (8.5-10.1) Ionized Calcium 1.10 mmol/L (1.13-1.32) Phosphorus Level 2.5 mg/dL (2.6-4.7) Magnesium Level 2.2 mg/dL (1.8-2.4) O2 Saturation 98 % (92-99) Arterial Blood pH 7.35 (7.35-7.45) Arterial Blood pH (Temp corrected) 7.39 Arterial Blood pCO2 at Patient Temp 28 mmHg (35-46) Arterial Blood pCO2 (Temp correct) 25 mmHg Arterial Blood pO2 at Patient Temp 135 mmHg (65-108) Arterial Blood pO2 (Temp corrected) 120 mmHg Arterial Blood HCO3 15 mmol/L (21-28) Arterial Blood Base Excess -9 mmol/L (-3-3) FiO2 50 Test 04/12/19 05:25 04/12/19 05:28 04/12/19 07:10 White Blood Count 16.4 x10^3/uL (4.0-11.0) Red Blood Count 3.44 x10^6/uL (3.50-5.40) Hemoglobin 10.0 g/dL (12.0-15.5) Hematocrit 30.2 % (36.0-47.0) Mean Corpuscular Volume 88 fL (79-100) Mean Corpuscular Hemoglobin 29 pg (25-35) Mean Corpuscular Hemoglobin Concent 33 g/dL (31-37) Red Cell Distribution Width 12.9 % (11.5-14.5) Platelet Count 152 x10^3/uL (140-400) Sodium Level 132 mmol/L (136-145) Potassium Level 4.2 mmol/L (3.5-5.1) Chloride Level 104 mmol/L (98-107) Carbon Dioxide Level 18 mmol/L (21-32) Anion Gap 10 (6-14) Blood Urea Nitrogen 23 mg/dL (7-20) Creatinine 0.8 mg/dL (0.6-1.0) Estimated GFR (Cockcroft-Gault) 73.2 BUN/Creatinine Ratio 29 (6-20) Glucose Level 136 mg/dL (70-99) Calcium Level 7.0 mg/dL (8.5-10.1) Total Bilirubin 0.2 mg/dL (0.2-1.0) Aspartate Amino Transf (AST/SGOT) 70 U/L (15-37) Alanine Aminotransferase (ALT/SGPT) 70 U/L (14-59) Alkaline Phosphatase 57 U/L (46-116) Total Protein 4.0 g/dL (6.4-8.2) Albumin 1.8 g/dL (3.4-5.0) Albumin/Globulin Ratio 0.8 (1.0-1.7) O2 Saturation 97 % (92-99) Arterial Blood pH 7.37 (7.35-7.45) Arterial Blood pCO2 at Patient Temp 28 mmHg (35-46) Arterial Blood pO2 at Patient Temp 103 mmHg (65-108) Arterial Blood HCO3 16 mmol/L (21-28) Arterial Blood Base Excess -8 mmol/L (-3-3) FiO2 40 Laboratory Tests Test 04/11/19 13:37 04/11/19 14:36 04/11/19 15:40 04/11/19 17:06 Glucose (Fingerstick) 134 mg/dL (70-99) 151 mg/dL (70-99) 157 mg/dL (70-99) 144 mg/dL (70-99) Test 04/11/19 17:45 04/11/19 20:00 04/11/19 22:29 04/12/19 05:25 White Blood Count 16.4 x10^3/uL (4.0-11.0) 16.4 x10^3/uL (4.0-11.0) Red Blood Count 3.79 x10^6/uL (3.50-5.40) 3.44 x10^6/uL (3.50-5.40) Hemoglobin 11.1 g/dL (12.0-15.5) 10.0 g/dL (12.0-15.5) Hematocrit 33.4 % (36.0-47.0) 30.2 % (36.0-47.0) Mean Corpuscular Volume 88 fL (79-100) 88 fL (79-100) Mean Corpuscular Hemoglobin 29 pg (25-35) 29 pg (25-35) Mean Corpuscular Hemoglobin Concent 33 g/dL (31-37) 33 g/dL (31-37) Red Cell Distribution Width 12.8 % (11.5-14.5) 12.9 % (11.5-14.5) Platelet Count 147 x10^3/uL (140-400) 152 x10^3/uL (140-400) Neutrophils (%) (Auto) 89 % (31-73) Lymphocytes (%) (Auto) 8 % (24-48) Monocytes (%) (Auto) 3 % (0-9) Eosinophils (%) (Auto) 0 % (0-3) Basophils (%) (Auto) 0 % (0-3) Neutrophils # (Auto) 14.7 x10^3/uL (1.8-7.7) Lymphocytes # (Auto) 1.2 x10^3/uL (1.0-4.8) Monocytes # (Auto) 0.5 x10^3/uL (0.0-1.1) Eosinophils # (Auto) 0.0 x10^3/uL (0.0-0.7) Basophils # (Auto) 0.0 x10^3/uL (0.0-0.2) Prothrombin Time 17.0 SEC (11.7-14.0) Prothromb Time International Ratio 1.4 (0.8-1.1) Activated Partial Thromboplast Time 37 SEC (24-38) Sodium Level 137 mmol/L (136-145) Potassium Level 3.2 mmol/L (3.5-5.1) Chloride Level 108 mmol/L (98-107) Carbon Dioxide Level 18 mmol/L (21-32) Anion Gap 11 (6-14) Blood Urea Nitrogen 21 mg/dL (7-20) Creatinine 0.7 mg/dL (0.6-1.0) Estimated GFR (Cockcroft-Gault) 85.4 Glucose Level 151 mg/dL (70-99) Calcium Level 6.9 mg/dL (8.5-10.1) Ionized Calcium 1.10 mmol/L (1.13-1.32) Phosphorus Level 2.5 mg/dL (2.6-4.7) Magnesium Level 2.2 mg/dL (1.8-2.4) O2 Saturation 98 % (92-99) Arterial Blood pH 7.35 (7.35-7.45) Arterial Blood pH (Temp corrected) 7.39 Arterial Blood pCO2 at Patient Temp 28 mmHg (35-46) Arterial Blood pCO2 (Temp correct) 25 mmHg Arterial Blood pO2 at Patient Temp 135 mmHg (65-108) Arterial Blood pO2 (Temp corrected) 120 mmHg Arterial Blood HCO3 15 mmol/L (21-28) Arterial Blood Base Excess -9 mmol/L (-3-3) FiO2 50 Glucose (Fingerstick) 125 mg/dL (70-99) Test 04/12/19 05:28 04/12/19 07:10 Sodium Level 132 mmol/L (136-145) Potassium Level 4.2 mmol/L (3.5-5.1) Chloride Level 104 mmol/L (98-107) Carbon Dioxide Level 18 mmol/L (21-32) Anion Gap 10 (6-14) Blood Urea Nitrogen 23 mg/dL (7-20) Creatinine 0.8 mg/dL (0.6-1.0) Estimated GFR (Cockcroft-Gault) 73.2 BUN/Creatinine Ratio 29 (6-20) Glucose Level 136 mg/dL (70-99) Calcium Level 7.0 mg/dL (8.5-10.1) Total Bilirubin 0.2 mg/dL (0.2-1.0) Aspartate Amino Transf (AST/SGOT) 70 U/L (15-37) Alanine Aminotransferase (ALT/SGPT) 70 U/L (14-59) Alkaline Phosphatase 57 U/L (46-116) Total Protein 4.0 g/dL (6.4-8.2) Albumin 1.8 g/dL (3.4-5.0) Albumin/Globulin Ratio 0.8 (1.0-1.7) O2 Saturation 97 % (92-99) Arterial Blood pH 7.37 (7.35-7.45) Arterial Blood pCO2 at Patient Temp 28 mmHg (35-46) Arterial Blood pO2 at Patient Temp 103 mmHg (65-108) Arterial Blood HCO3 16 mmol/L (21-28) Arterial Blood Base Excess -8 mmol/L (-3-3) FiO2 40 Microbiology 04/10/19 Blood Culture - Preliminary, Resulted NO GROWTH AFTER 2 DAYS Medications Current Medications Norepinephrine Bitartrate 8 mg/ Dextrose 258 ml @ 13.855 mls/ hr 1X ONCE IV Last administered on 04/10/19at 12:40; Start 04/10/19 at 12:30; Stop 04/10/19 at 12:31; Status DC Amiodarone HCl 450 mg/Dextrose 259 ml @ 33 mls/hr 1X ONCE IV Last administered on 04/10/19at 12:55; Start 04/10/19 at 12:45; Stop 04/10/19 at 20:35; Status DC Sodium Chloride 1,000 ml @ 1,000 mls/hr Q1H IV Last administered on 04/10/19at 12:20; Start 04/10/19 at 12:13; Stop 04/10/19 at 13:12; Status DC Midazolam HCl 50 mg/Sodium Chloride 50 ml @ 1 mls/hr 1X ONCE IV Last administered on 04/10/19at 13:35; Start 04/10/19 at 13:15; Stop 04/11/19 at 13:55; Status DC Potassium Chloride/Water 100 ml @ 50 mls/hr 1X ONCE IV ; Start 04/10/19 at 13:15; Stop 04/10/19 at 13:16; Status DC Etomidate (Amidate) 20 mg STK-MED ONCE IV ; Start 04/10/19 at 13:14; Stop 04/10/19 at 13:14; Status DC Midazolam HCl (Versed) 5 mg STK-MED ONCE .ROUTE ; Start 04/10/19 at 13:15; Stop 04/10/19 at 13:15; Status DC Succinylcholine Chloride (Anectine) 200 mg STK-MED ONCE .ROUTE ; Start 04/10/19 at 13:15; Stop 04/10/19 at 13:15; Status DC Potassium Chloride/Water 100 ml @ 100 mls/hr Q1H IV ; Start 04/10/19 at 14:00; Stop 04/10/19 at 15:59; Status DC Sodium Bicarbonate (Sodium Bicarb Adult 8.4% Syr) 50 meq 1X ONCE IV Last administered on 04/10/19at 17:17; Start 04/10/19 at 13:30; Stop 04/10/19 at 13:31; Status DC Sodium Chloride 1,000 ml @ 150 mls/hr Q6H40M IV ; Start 04/10/19 at 13:28; Stop 04/11/19 at 00:46; Status DC Piperacillin Sod/ Tazobactam Sod 3.375 gm/Sodium Chloride 50 ml @ 100 mls/hr 1X ONCE IV Last administered on 04/10/19at 18:35; Start 04/10/19 at 13:45; Stop 04/10/19 at 14:14; Status DC Vancomycin HCl 250 ml @ 250 mls/hr 1X ONCE IV ; Start 04/10/19 at 13:45; Stop 04/10/19 at 14:44; Status UNV Sodium Chloride 1,000 ml @ 1,000 mls/hr 1X ONCE IV Last administered on 04/10/19at 13:45; Start 04/10/19 at 13:45; Stop 04/10/19 at 14:44; Status DC Vancomycin HCl 1.75 gm/Sodium Chloride 500 ml @ 250 mls/hr 1X ONCE IV ; Start 04/10/19 at 14:00; Stop 04/10/19 at 15:59; Status DC Iodixanol (Visipaque 320) 100 ml STK-MED ONCE .ROUTE ; Start 04/10/19 at 14:01; Stop 04/10/19 at 14:02; Status DC Heparin Sodium/ Sodium Chloride 500 ml @ As Directed STK-MED ONCE .ROUTE ; Start 04/10/19 at 14:02; Stop 04/10/19 at 14:02; Status DC Lidocaine HCl (Xylocaine-Mpf 1% 2ml Vial) 2 ml STK-MED ONCE .ROUTE ; Start 04/10/19 at 14:02; Stop 04/10/19 at 14:02; Status DC Lidocaine HCl (Lidocaine 1% 20ml Vial) 20 ml STK-MED ONCE .ROUTE ; Start 04/10/19 at 14:03; Stop 04/10/19 at 14:04; Status DC Heparin Sodium (Porcine) (Heparin Sodium) 10,000 unit STK-MED ONCE .ROUTE ; Start 04/10/19 at 15:16; Stop 04/10/19 at 15:16; Status DC Heparin Sodium/ Sodium Chloride (HEPARIN for ARTERIAL LINE FLUSH) 1,000 unit 1X ONCE IART Last administered on 04/10/19at 15:42; Start 04/10/19 at 15:30; Stop 04/10/19 at 23:39; Status DC Iodixanol (Visipaque 320) 104 ml 1X ONCE IART Last administered on 04/10/19at 15:42; Start 04/10/19 at 15:30; Stop 04/10/19 at 23:39; Status DC Heparin Sodium (Porcine) (Heparin Sodium) 4,000 unit 1X ONCE IV Last administered on 04/10/19at 15:42; Start 04/10/19 at 15:30; Stop 04/10/19 at 23:39; Status DC Lidocaine HCl (Lidocaine 1% 20ml Vial) 20 ml 1X ONCE INJ Last administered on 04/10/19at 15:42; Start 04/10/19 at 15:30; Stop 04/10/19 at 23:39; Status DC Atropine Sulfate (ATROPINE 1mg SYRINGE) 1 mg 1X ONCE IV Last administered on 04/10/19at 12:42; Start 04/10/19 at 12:42; Stop 04/10/19 at 15:42; Status DC Midazolam HCl (Versed) 5 mg 1X ONCE IV Last administered on 04/10/19at 13:15; Start 04/10/19 at 13:15; Stop 04/10/19 at 15:42; Status DC Vecuronium [place] (Norcuron Bolus) 10 mg STK-MED ONCE IV ; Start 04/10/19 at 16:54; Stop 04/10/19 at 16:55; Status DC Fentanyl Citrate (Fentanyl 2ml Vial) 100 mcg STK-MED ONCE .ROUTE ; Start 04/10/19 at 16:55; Stop 04/10/19 at 16:56; Status DC Fentanyl Citrate (Fentanyl 2ml Vial) 100 mcg 1X ONCE IV Last administered on 04/10/19at 17:16; Start 04/10/19 at 17:00; Stop 04/10/19 at 17:01; Status DC Midazolam HCl (Versed) 2 mg 1X ONCE IV ; Start 04/10/19 at 17:00; Stop 04/10/19 at 17:01; Status DC Magnesium Sulfate/ Dextrose 100 ml @ 100 mls/hr 1X ONCE IV Last administered on 04/10/19at 17:16; Start 04/10/19 at 18:00; Stop 04/10/19 at 18:59; Status DC Buspirone HCl (Buspar) 30 mg Q8HRS NG Last administered on 04/11/19at 21:13; Start 04/10/19 at 17:00; Stop 04/12/19 at 05:17; Status DC Acetaminophen (Tylenol) 650 mg Q4H NG Last administered on 04/12/19at 00:27; Start 04/10/19 at 17:00; Stop 04/12/19 at 03:15; Status DC Artificial Tears (Artificial Tears) 1 drop Q6HRS OU Last administered on 04/12/19at 00:27; Start 04/10/19 at 18:00; Stop 04/12/19 at 05:17; Status DC Artificial Tears (Artificial Tears) 1 drop PRN Q15MIN PRN OU DRY EYE; Start 04/10/19 at 17:00 Heparin Sodium (Porcine) (Heparin Sodium) 5,000 unit BID SQ ; Start 04/10/19 at 21:00; Status Cancel Pantoprazole Sodium (PROTONIX VIAL for IV PUSH) 40 mg DAILY IVP Last administered on 04/12/19at 09:05; Start 04/10/19 at 18:00 Fentanyl Citrate 30 ml @ 0 mls/hr CONT PRN IV PER PROTOCOL. Last administered on 04/12/19at 10:52; Start 04/10/19 at 17:00 Propofol 100 ml @ 0 mls/hr CONT PRN IV PER PROTOCOL. Last administered on 04/12/19at 10:42; Start 04/10/19 at 17:00 Midazolam HCl 50 mg/Sodium Chloride 50 ml @ 0 mls/hr CONT PRN IV PER PROTOCOL. Last administered on 04/12/19at 00:27; Start 04/10/19 at 17:00 Vecuronium [place] (Norcuron Bolus) 7 mg PRN Q1HR PRN IV SHIVERING Last administered on 04/11/19at 15:48; Start 04/10/19 at 17:00 Heparin Sodium/ Dextrose 250 ml @ 0 mls/hr CONT PRN IV PER PROTOCOL; Start 04/10/19 at 17:30; Stop 04/10/19 at 23:42; Status DC Heparin Sodium (Porcine) (Heparin Sodium) 2,150 unit PRN Q6HRS PRN IV FOR UFH LEVEL LESS THAN 0.2; Start 04/10/19 at 17:30; Stop 04/10/19 at 23:39; Status DC Heparin Sodium (Porcine) (Heparin Sodium) 1,050 unit PRN Q6HRS PRN IV FOR UFH LEVEL 0.2 - 0.29; Start 04/10/19 at 17:30; Stop 04/10/19 at 23:39; Status DC Hydralazine HCl (Apresoline Inj) 10 mg PRN Q6HRS PRN IVP ELEVATED BP, SEE COMMENTS; Start 04/10/19 at 18:00 Hydralazine HCl (Apresoline Inj) 20 mg STK-MED ONCE .ROUTE ; Start 04/10/19 at 17:56; Stop 04/10/19 at 17:56; Status DC Iohexol (Omnipaque 350 Mg/ml) 75 ml 1X ONCE IV Last administered on 04/10/19at 18:45; Start 04/10/19 at 18:45; Stop 04/10/19 at 18:46; Status DC Insulin Human Regular 100 unit/ Sodium Chloride 101 ml @ 0 mls/hr CONT PRN IV SEE I/O RECORD Last administered on 04/11/19at 10:23; Start 04/10/19 at 19:30; Stop 04/12/19 at 03:15; Status DC Magnesium Sulfate/ Dextrose 100 ml @ 100 mls/hr PRN DAILY PRN IV MAG level 2.4-3.0mg/dl Last administered on 04/11/19at 08:44; Start 04/10/19 at 20:30 Potassium Chloride/Water 100 ml @ 100 mls/hr PRN DAILY PRN IV K+ level 3.1- 3.4mEq/L Last administered on 04/11/19at 06:50; Start 04/10/19 at 20:30 Magnesium Sulfate/ Dextrose 100 ml @ 100 mls/hr 1X PRN IV MAG level 2.4- 3.0mg/dl Last administered on 04/10/19at 22:17; Start 04/10/19 at 22:00; Stop 04/11/19 at 01:56; Status DC Potassium Chloride/Water 100 ml @ 100 mls/hr 1X PRN IV K+ level 3.1-3.4mEq/L Last administered on 04/10/19at 22:16; Start 04/10/19 at 22:00; Stop 04/11/19 at 01:55; Status DC Norepinephrine Bitartrate 8 mg/ Dextrose 258 ml @ 13.855 mls/ hr CONT PRN IV PER PROTOCOL Last administered on 04/10/19at 22:43; Start 04/10/19 at 22:45 Heparin Sodium/ Dextrose 250 ml @ 0 mls/hr CONT PRN IV PER PROTOCOL Last administered on 04/11/19at 00:43; Start 04/10/19 at 23:45; Stop 04/11/19 at 09:36; Status DC Heparin Sodium (Porcine) (Heparin Sodium) 1,800 unit PRN Q6HRS PRN IV FOR UFH LEVEL LESS THAN 0.2; Start 04/10/19 at 23:45; Stop 04/11/19 at 09:54; Status DC Amiodarone HCl 450 mg/Dextrose 259 ml @ 0 mls/hr CONT PRN IV SEE I/O RECORD Last administered on 04/12/19at 11:52; Start 04/11/19 at 00:00; Stop 04/11/19 at 19:36; Status DC Dextrose/Sodium Chloride 1,000 ml @ 75 mls/hr [id number] IV Last administered on 04/11/19at 01:57; Start 04/11/19 at 01:00; Stop 04/11/19 at 10:53; Status DC Potassium Chloride/Water 100 ml @ 50 mls/hr PRN DAILY PRN IV K+ level less than 3.1 mEq/l; Start 04/11/19 at 02:00; Status Cancel Potassium Chloride/Water 100 ml @ 100 mls/hr PRN Q1HR PRN IV K<3.1; Start 04/11/19 at 02:00 Magnesium Sulfate/ Dextrose 100 ml @ 100 mls/hr PRN DAILY PRN IV MAG level 2.4-3.0mg/dl; Start 04/11/19 at 06:45; Status UNV Potassium Chloride/Water 100 ml @ 100 mls/hr PRN DAILY PRN IV K+ level 3.1- 3.4mEq/L; Start 04/11/19 at 06:45; Status UNV Atropine Sulfate (ATROPINE 0.5mg SYRINGE) 0.25 mg 1X ONCE IM ; Start 04/11/19 at 09:45; Stop 04/11/19 at 09:38; Status DC Atropine Sulfate (ATROPINE 1mg SYRINGE) 0.25 mg 1X ONCE IM Last administered on 04/11/19at 09:55; Start 04/11/19 at 09:45; Stop 04/11/19 at 09:46; Status DC Dopamine HCl/ Dextrose 250 ml @ 6.676 mls/ hr CONT PRN IV SEE I/O RECORD Last administered on 04/11/19at 09:55; Start 04/11/19 at 10:00 Sodium Chloride 1,000 ml @ 75 mls/hr [id number] IV Last administered on 04/11/19at 19:36; Start 04/11/19 at 12:00 Heparin Sodium (Porcine) (Heparin Sodium) 5,000 unit BID SQ Last administered on 04/12/19at 09:07; Start 04/11/19 at 21:00 Atropine Sulfate (ATROPINE 1mg SYRINGE) 1 mg STK-MED ONCE .ROUTE ; Start 04/10/19 at 15:16; Stop 04/11/19 at 15:16; Status DC Amiodarone HCl 450 mg/Dextrose 259 ml @ 33 mls/hr CONT PRN PRN IV SEE I/O RECORD; Start 04/12/19 at 08:15 Acetaminophen (Tylenol) 650 mg PRN Q6HRS PRN PEG MILD PAIN / TEMP Last administered on 04/12/19at 11:36; Start 04/12/19 at 11:30 Active Scripts Active Reported Celebrex (Celecoxib) 100 Mg Capsule 1 Cap PO BID Verapamil Er (Verapamil Hcl) 240 Mg Cap24h.pel 1 Cap PO DAILY Vitals/I & O Vital Sign - Last 24 Hours 04/11/19 04/11/19 04/11/19 04/11/19 14:00 14:00 14:20 15:00 Temp 89.2 89.2 90.5 89.2 Pulse 40 Resp 20 B/P (MAP) 91/46 (61) Pulse Ox 100 96 O2 Delivery Ventilator Ventilator Ventilator Ventilator 04/11/19 04/11/19 04/11/19 04/11/19 15:00 16:00 16:00 16:00 Temp 90.5 92.5 93.5 90.5 93.5 Pulse 43 46 Resp 20 20 B/P (MAP) 97/46 (63) 98/52 (67) Pulse Ox 100 100 O2 Delivery Ventilator Mechanical Ventilator Ventilator Ventilator 04/11/19 04/11/19 04/11/19 04/11/19 16:35 16:37 17:00 17:00 Temp 94.3 93.2 94.3 Pulse 46 Resp 20 20 B/P (MAP) 122/54 (76) Pulse Ox 100 100 100 O2 Delivery Ventilator Ventilator Ventilator Ventilator 04/11/19 04/11/19 04/11/19 04/11/19 17:40 18:00 18:00 19:00 Temp 93.2 93.2 92.6 93.2 92.6 Pulse 46 46 Resp 20 20 20 B/P (MAP) 126/50 (75) 102/42 (62) Pulse Ox 100 100 98 O2 Delivery Ventilator Ventilator Ventilator Ventilator 04/11/19 04/11/19 04/11/19 04/11/19 19:00 19:40 20:00 20:00 Temp 93.7 94.2 94.3 94.3 Pulse 46 Resp 20 B/P (MAP) 98/48 (65) Pulse Ox 98 O2 Delivery Ventilator Mechanical Ventilator Ventilator Ventilator 04/11/19 04/11/19 04/11/19 04/11/19 20:20 20:57 21:00 22:00 Temp 95.1 95.1 96.8 95.1 96.8 Pulse 53 52 Resp 20 20 B/P (MAP) 105/50 (68) 100/50 (67) Pulse Ox 100 100 100 O2 Delivery Ventilator Ventilator Ventilator Ventilator 04/11/19 04/11/19 04/11/1918/20 23:00 23:00 23:19 00:00 Temp 96.4 96.4 95.6 96.4 Pulse 54 Resp 20 B/P (MAP) 106/57 (73) Pulse Ox 100 100 O2 Delivery Ventilator Ventilator Ventilator Ventilator 04/12/19 04/12/19 04/12/19 04/12/19 00:00 00:20 01:00 01:00 Temp 95.6 95.4 95.4 95.6 95.4 Pulse 52 52 Resp 20 20 B/P (MAP) 92/46 (61) 90/46 (61) Pulse Ox 100 100 O2 Delivery Ventilator Mechanical Ventilator Ventilator Ventilator 04/12/19 04/12/19 04/12/19 04/12/19 01:42 02:00 02:00 03:00 Temp 96.0 96.9 97.4 96.9 97.4 Pulse 54 55 Resp 20 B/P (MAP) 92/41 (58) 90/41 (57) Pulse Ox 100 100 100 O2 Delivery Ventilator Ventilator Ventilator Ventilator 04/12/19 04/12/19 04/12/19 04/12/19 03:00 03:04 04:00 04:00 Temp 97.4 98.0 97.4 98.0 Pulse 55 Resp 20 B/P (MAP) 92/40 (57) Pulse Ox 100 100 O2 Delivery Ventilator Ventilator Ventilator Ventilator 04/12/19 04/12/19 04/12/19 04/12/19 04:15 04:57 05:00 05:21 Temp 98.8 98.8 Pulse 54 Resp 20 B/P (MAP) 91/40 (57) Pulse Ox 100 100 100 O2 Delivery Mechanical Ventilator Ventilator Ventilator 04/12/19 04/12/19 04/12/19 04/12/19 06:00 07:00 07:06 08:00 Temp 99.0 99.3 99.0 99.3 Pulse 54 54 54 Resp 20 20 20 B/P (MAP) 93/40 (57) 132/56 (81) 106/44 (64) Pulse Ox 100 100 100 100 O2 Delivery Ventilator Ventilator Ventilator Ventilator 04/12/19 04/12/19 04/12/19 04/12/19 08:00 09:00 10:00 10:52 Pulse 55 55 Resp 20 20 20 B/P (MAP) 95/40 (58) 95/40 (58) Pulse Ox 100 100 96 O2 Delivery Mechanical Ventilator Ventilator Ventilator Ventilator 04/12/19 04/12/19 04/12/19 04/12/19 11:00 11:22 11:30 12:00 Temp 100.4 100.4 Pulse 60 60 Resp 20 20 B/P (MAP) 94/40 (58) 98/44 (62) Pulse Ox 100 100 100 100 O2 Delivery Ventilator Ventilator Ventilator 04/12/19 04/12/19 12:00 13:00 Pulse 58 Resp 20 B/P (MAP) 99/44 (62) Pulse Ox 100 O2 Delivery Mechanical Ventilator Ventilator Intake and Output 04/11/19 04/11/19 04/12/19 14:59 22:59 06:59 Intake Total 2596 ml 913.14 ml 1248 ml Output Total 695 ml 395 ml 185 ml Balance 1901 ml 518.14 ml 1063 ml ANNIE BRYANT MD Apr 12, 2019 13:11
[2019-04-12] MEDS: IV 1/2 NORMAL SALINE 1,000 ML IV SCH (14:12)
[2019-04-13] VITALS (41 sets, daily range): BP systolic 80–140; BP diastolic 31–52
[2019-04-13] MEDS: ACETAMINOPHEN 650 MG/20.3 ML SOLUTION. PEG PRN (00:02)
--- NOTE | 2019-04-13 06:15 | RAD ---
AP chest. HISTORY: Intubated AP view was taken of the chest. Endotracheal tube extends to the level the clavicles without change. NG tube is in the stomach. Central line is in good position without change. There is mild atelectasis or infiltrate in the medial left lung base without change. No new infiltrates are noted. IMPRESSION: 1. Tubes and lines unchanged. 2. Mild atelectasis or infiltrate left lung base. Electronically signed by: Selvin Jorge MD (04/13/2019 6:12 AM) [facility]– [place]
[2019-04-13 06:24] LABS: HEMATOCRIT 27.3 % (36.0-47.0); HEMOGLOBIN 9.3 g/dL (12.0-15.5); RED BLOOD COUNT 3.12 x10^6/uL (3.50-5.40); RED CELL DISTRIBUTION WIDTH 13.1 % (11.5-14.5); WHITE BLOOD COUNT 10.2 x10^3/uL (4.0-11.0)
--- NOTE | 2019-04-13 07:06 | PDOC ---
PULMONARY PROGRESS NOTES Subjective on vent, 40% fio2, small ett secretion, s/p hypothermia, , on amio, dopamine, fentanyl, propofol, didnt tolerate sbt yesterday, agitated and had apneac episode Vitals Vital Signs Date Time Temp Pulse Resp B/P (MAP) Pulse Ox O2 Delivery O2 Flow Rate FiO2 04/13/19 06:00 82 20 136/50 (78) 100 Ventilator 04/13/19 04:00 100.8 100.8 Comments ros as mentioned as above discussed w rn other sys otherwise neg sedated on vent HEENT: Other (nc at perrl orally intubated nose clear neck no lad no thyromegaly) Lungs: Crackles Cardiovascular: S1, S2 Abdomen: Soft, Non-tender, Other (no mass) Extremities: No Edema Skin: Warm, Diaphoretic Labs Laboratory Tests Test 04/11/19 07:50 04/11/19 08:19 04/11/19 10:02 04/11/19 11:22 O2 Saturation 98 % (92-99) Arterial Blood pH 7.18 (7.35-7.45) Arterial Blood pH (Temp corrected) 7.25 Arterial Blood pCO2 at Patient Temp 45 mmHg (35-46) Arterial Blood pCO2 (Temp correct) 36 mmHg Arterial Blood pO2 at Patient Temp 136 mmHg (65-108) Arterial Blood pO2 (Temp corrected) 108 mmHg Arterial Blood HCO3 16 mmol/L (21-28) Arterial Blood Base Excess -12 mmol/L (-3-3) Glucose (Fingerstick) 202 mg/dL (70-99) 190 mg/dL (70-99) 163 mg/dL (70-99) Test 04/11/19 11:40 04/11/19 12:26 04/11/19 13:37 04/11/19 14:36 White Blood Count 17.3 x10^3/uL (4.0-11.0) Red Blood Count 3.91 x10^6/uL (3.50-5.40) Hemoglobin 11.4 g/dL (12.0-15.5) Hematocrit 34.7 % (36.0-47.0) Mean Corpuscular Volume 89 fL (79-100) Mean Corpuscular Hemoglobin 29 pg (25-35) Mean Corpuscular Hemoglobin Concent 33 g/dL (31-37) Red Cell Distribution Width 13.0 % (11.5-14.5) Platelet Count 157 x10^3/uL (140-400) Prothrombin Time 17.2 SEC (11.7-14.0) Prothromb Time International Ratio 1.4 (0.8-1.1) Activated Partial Thromboplast Time 127 SEC (24-38) Urine Collection Type Unknown Urine Color Yellow Urine Clarity Clear Urine pH 5.0 Urine Specific [place] 1.025 Urine Protein Negative mg/dL (NEG-TRACE) Urine Glucose (UA) 100 mg/dL (NEG) Urine Ketones (Stick) Negative mg/dL (NEG) Urine Blood Small (NEG) Urine Nitrite Negative (NEG) Urine Bilirubin Negative (NEG) Urine Urobilinogen Dipstick 0.2 mg/dL (0.2 mg/dL) Urine Leukocyte Esterase Negative (NEG) Urine RBC 11-20 /HPF (0-2) Urine WBC Occ /HPF (0-4) Urine Squamous Epithelial Cells Occ /LPF Urine Bacteria 0 /HPF (0-FEW) Urine Mucus Mod /LPF Sodium Level 140 mmol/L (136-145) Potassium Level 2.7 mmol/L (3.5-5.1) Chloride Level 111 mmol/L (98-107) Carbon Dioxide Level 14 mmol/L (21-32) Anion Gap 15 (6-14) Blood Urea Nitrogen 23 mg/dL (7-20) Creatinine 0.6 mg/dL (0.6-1.0) Estimated GFR (Cockcroft-Gault) 102.0 Glucose Level 133 mg/dL (70-99) Calcium Level 6.3 mg/dL (8.5-10.1) Ionized Calcium 1.01 mmol/L (1.13-1.32) Phosphorus Level 1.8 mg/dL (2.6-4.7) Magnesium Level 2.2 mg/dL (1.8-2.4) Urine Opiates Screen Neg (NEG) Urine Methadone Screen Neg (NEG) Urine Barbiturates Neg (NEG) Urine Phencyclidine Screen Neg (NEG) Urine Amphetamine/Methamphetamine Neg (NEG) Urine Benzodiazepines Screen Pos (NEG) Urine Cocaine Screen Neg (NEG) Urine Cannabinoids Screen Neg (NEG) Urine Ethyl Alcohol Neg (NEG) Glucose (Fingerstick) 129 mg/dL (70-99) 134 mg/dL (70-99) 151 mg/dL (70-99) Test 04/11/19 15:40 04/11/19 17:06 04/11/19 17:45 04/11/19 20:00 Glucose (Fingerstick) 157 mg/dL (70-99) 144 mg/dL (70-99) White Blood Count 16.4 x10^3/uL (4.0-11.0) Red Blood Count 3.79 x10^6/uL (3.50-5.40) Hemoglobin 11.1 g/dL (12.0-15.5) Hematocrit 33.4 % (36.0-47.0) Mean Corpuscular Volume 88 fL (79-100) Mean Corpuscular Hemoglobin 29 pg (25-35) Mean Corpuscular Hemoglobin Concent 33 g/dL (31-37) Red Cell Distribution Width 12.8 % (11.5-14.5) Platelet Count 147 x10^3/uL (140-400) Neutrophils (%) (Auto) 89 % (31-73) Lymphocytes (%) (Auto) 8 % (24-48) Monocytes (%) (Auto) 3 % (0-9) Eosinophils (%) (Auto) 0 % (0-3) Basophils (%) (Auto) 0 % (0-3) Neutrophils # (Auto) 14.7 x10^3/uL (1.8-7.7) Lymphocytes # (Auto) 1.2 x10^3/uL (1.0-4.8) Monocytes # (Auto) 0.5 x10^3/uL (0.0-1.1) Eosinophils # (Auto) 0.0 x10^3/uL (0.0-0.7) Basophils # (Auto) 0.0 x10^3/uL (0.0-0.2) Prothrombin Time 17.0 SEC (11.7-14.0) Prothromb Time International Ratio 1.4 (0.8-1.1) Activated Partial Thromboplast Time 37 SEC (24-38) Sodium Level 137 mmol/L (136-145) Potassium Level 3.2 mmol/L (3.5-5.1) Chloride Level 108 mmol/L (98-107) Carbon Dioxide Level 18 mmol/L (21-32) Anion Gap 11 (6-14) Blood Urea Nitrogen 21 mg/dL (7-20) Creatinine 0.7 mg/dL (0.6-1.0) Estimated GFR (Cockcroft-Gault) 85.4 Glucose Level 151 mg/dL (70-99) Calcium Level 6.9 mg/dL (8.5-10.1) Ionized Calcium 1.10 mmol/L (1.13-1.32) Phosphorus Level 2.5 mg/dL (2.6-4.7) Magnesium Level 2.2 mg/dL (1.8-2.4) O2 Saturation 98 % (92-99) Arterial Blood pH 7.35 (7.35-7.45) Arterial Blood pH (Temp corrected) 7.39 Arterial Blood pCO2 at Patient Temp 28 mmHg (35-46) Arterial Blood pCO2 (Temp correct) 25 mmHg Arterial Blood pO2 at Patient Temp 135 mmHg (65-108) Arterial Blood pO2 (Temp corrected) 120 mmHg Arterial Blood HCO3 15 mmol/L (21-28) Arterial Blood Base Excess -9 mmol/L (-3-3) FiO2 50 Test 04/11/19 22:29 04/12/19 05:25 04/12/19 05:28 04/12/19 07:10 Glucose (Fingerstick) 125 mg/dL (70-99) White Blood Count 16.4 x10^3/uL (4.0-11.0) Red Blood Count 3.44 x10^6/uL (3.50-5.40) Hemoglobin 10.0 g/dL (12.0-15.5) Hematocrit 30.2 % (36.0-47.0) Mean Corpuscular Volume 88 fL (79-100) Mean Corpuscular Hemoglobin 29 pg (25-35) Mean Corpuscular Hemoglobin Concent 33 g/dL (31-37) Red Cell Distribution Width 12.9 % (11.5-14.5) Platelet Count 152 x10^3/uL (140-400) Sodium Level 132 mmol/L (136-145) Potassium Level 4.2 mmol/L (3.5-5.1) Chloride Level 104 mmol/L (98-107) Carbon Dioxide Level 18 mmol/L (21-32) Anion Gap 10 (6-14) Blood Urea Nitrogen 23 mg/dL (7-20) Creatinine 0.8 mg/dL (0.6-1.0) Estimated GFR (Cockcroft-Gault) 73.2 BUN/Creatinine Ratio 29 (6-20) Glucose Level 136 mg/dL (70-99) Calcium Level 7.0 mg/dL (8.5-10.1) Total Bilirubin 0.2 mg/dL (0.2-1.0) Aspartate Amino Transf (AST/SGOT) 70 U/L (15-37) Alanine Aminotransferase (ALT/SGPT) 70 U/L (14-59) Alkaline Phosphatase 57 U/L (46-116) Total Protein 4.0 g/dL (6.4-8.2) Albumin 1.8 g/dL (3.4-5.0) Albumin/Globulin Ratio 0.8 (1.0-1.7) O2 Saturation 97 % (92-99) Arterial Blood pH 7.37 (7.35-7.45) Arterial Blood pCO2 at Patient Temp 28 mmHg (35-46) Arterial Blood pO2 at Patient Temp 103 mmHg (65-108) Arterial Blood HCO3 16 mmol/L (21-28) Arterial Blood Base Excess -8 mmol/L (-3-3) FiO2 40 Test 04/13/19 06:00 White Blood Count 10.2 x10^3/uL (4.0-11.0) Red Blood Count 3.12 x10^6/uL (3.50-5.40) Hemoglobin 9.3 g/dL (12.0-15.5) Hematocrit 27.3 % (36.0-47.0) Mean Corpuscular Volume 88 fL (79-100) Mean Corpuscular Hemoglobin 30 pg (25-35) Mean Corpuscular Hemoglobin Concent 34 g/dL (31-37) Red Cell Distribution Width 13.1 % (11.5-14.5) Platelet Count 133 x10^3/uL (140-400) Laboratory Tests Test 04/12/19 07:10 04/13/19 06:00 O2 Saturation 97 % (92-99) Arterial Blood pH 7.37 (7.35-7.45) Arterial Blood pCO2 at Patient Temp 28 mmHg (35-46) Arterial Blood pO2 at Patient Temp 103 mmHg (65-108) Arterial Blood HCO3 16 mmol/L (21-28) Arterial Blood Base Excess -8 mmol/L (-3-3) FiO2 40 White Blood Count 10.2 x10^3/uL (4.0-11.0) Red Blood Count 3.12 x10^6/uL (3.50-5.40) Hemoglobin 9.3 g/dL (12.0-15.5) Hematocrit 27.3 % (36.0-47.0) Mean Corpuscular Volume 88 fL (79-100) Mean Corpuscular Hemoglobin 30 pg (25-35) Mean Corpuscular Hemoglobin Concent 34 g/dL (31-37) Red Cell Distribution Width 13.1 % (11.5-14.5) Platelet Count 133 x10^3/uL (140-400) Medications Active Scripts Medications Dose Route/Sig Max Daily Dose Days Date Category Celebrex (Celecoxib) 100 Mg Capsule 1 Cap PO BID 04/11/19 Reported Verapamil Er (Verapamil Hcl) 240 Mg Cap24h.pel 1 Cap PO DAILY 04/11/19 Reported Comments cxr reviewed lll atelectasis/infilt ett ok Impression . IMPRESSION: 1. [id number] cardiopulmonary arrest, etiology unclear. 2. Status post emergent cardiac catheterization revealing normal ejection fraction, nonobstructive coronary artery disease, 50% stenosis involving the dominant right coronary artery. Normal left ventricular ejection fraction estimated at 55%. 3. Hypertension. 4. Recent acute bronchitis. CTA CHEST IMPRESSION: 1. No pulmonary embolus identified within the main, lobar or segmental pulmonary arteries. 2. Layering consolidative changes in the lungs bilaterally greater on the left favored to represent pulmonary edema. Superimposed infectious process is difficult to exclude. FINDINGS 1. Hemodynamics: Left ventricular end-diastolic pressure 5 mmHg. No pullback gradient across the aortic valve. 2. Left ventriculography: Normal left ventricle systolic function with ejection fraction estimated at 55%. No significant mitral regurgitation seen. 3. Coronary angiography: a. The left main coronary artery arose from the left sinus of Valsalva, gave rise to the left anterior descending and left circumflex arteries and did not show any significant stenosis. b. The left anterior descending artery showed 30% stenosis in the midsegment. The diagonal branch showed 50% stenosis in the proximal segment. c. The left circumflex artery did not show any significant stenosis. d. The right coronary artery was a large and dominant vessel arising from the right sinus of Valsalva that showed 50% stenosis in the midsegment. This was physiologically insignificant based on IFR measurement of 1.0. Conclusion 1. Nonobstructive coronary artery disease. 50% stenosis involving dominant right coronary artery that was physiologically not significant based on IFR measurement. The diagonal branch which is a small to medium caliber vessel also showed 50% proximal segment stenosis. 2. Normal left ventricle systolic function with ejection fraction estimated at 55%. Recommendations Consider AICD implantation for secondary prevention of sudden cardiac if workup for pulmonary embolism as negative Plan . cont vent support, setting reviewed, agitated at times, add precedex, decrease sedation, sbt when more awake sputum cx NEGATIVE CTA OF CHEST WILL CONTINUE SUPPORT LASIX, monitor k, cr EMPIRIC ANTIBX s/p HYPOTHERMIC PROTOCOL amio/dopamine per cardiology discussed w SIM Cheney MD Apr 13, 2019 07:06
[2019-04-13 07:57] LABS: CALCIUM 7.9 mg/dL (8.5-10.1); CREATININE 0.9 mg/dL (0.6-1.0); GFR 63.9; POTASSIUM 3.9 mmol/L (3.5-5.1)
[2019-04-13] MEDS: DEXMEDETOMIDINE 400 MCG in IV NORMAL SALINE 100ML 96 ML IV PRN ×2 (08:22→14:56)
[2019-04-13 08:24] LABS: BASE EXCESS ABG -6 mmol/L (-3-3); HCO3 ABG 17 mmol/L (21-28); PCO2 ABG 26 mmHg (35-46); PO2 ABG 126 mmHg (65-108); SAT O2 ABG 98 % (92-99)
[2019-04-13 08:25] LABS: FIO2 ABG 40
[2019-04-13] MEDS: PANTOPRAZOLE IV PUSH 40 MG VIAL. IVP SCH (08:34)
[2019-04-13] MEDS: HEPARIN for SUB-Q USE 5,000 UNIT/ML VIAL. SQ SCH ×2 (08:35→21:14)
[2019-04-13] MEDS: PIPERACILLIN/TAZOBACTAM 4.5 GM in IV NORMAL SALINE 100ML 100 ML IV SCH ×3 (09:20→17:37)
--- NOTE | 2019-04-13 09:32 | PDOC ---
PROGRESS NOTES Chief Complaint Chief Complaint Status post cardiac arrest Status post cardiac cath with no flow limiting lesions evident Arrhythmia History of essential hypertension History of dyslipidemia bracycardia most likely due to amiodarone Leukocytosis reactive most likely but will cover with ATB for possible aspiration pneumonia Plan: supportive measures continue with vent support as per pulmonology Zosyn monitor bradycardia and adjust meds as per analysis consultant. prognosis guarded will follow neurological response off sedation History of Present Illness History of Present Illness patient with hypotension today, she is not having purposeful movements and not following commands, infiltrate noted on x ray, discussed with pulmonary customer service and sales consultant. Vitals Vitals Vital Signs Date Time Temp Pulse Resp B/P (MAP) Pulse Ox O2 Delivery O2 Flow Rate FiO2 04/13/19 07:44 100 Ventilator 04/13/19 06:00 82 20 136/50 (78) 04/13/19 04:00 100.8 100.8 Physical Exam General: Other (intubated) Heart: Regular rate Lungs: Crackles Abdomen: Normal bowel sounds Extremities: No cyanosis, No edema Skin: No significant lesion Labs LABS Laboratory Tests Test 04/13/19 06:00 04/13/19 07:45 White Blood Count 10.2 x10^3/uL (4.0-11.0) Red Blood Count 3.12 x10^6/uL (3.50-5.40) Hemoglobin 9.3 g/dL (12.0-15.5) Hematocrit 27.3 % (36.0-47.0) Mean Corpuscular Volume 88 fL (79-100) Mean Corpuscular Hemoglobin 30 pg (25-35) Mean Corpuscular Hemoglobin Concent 34 g/dL (31-37) Red Cell Distribution Width 13.1 % (11.5-14.5) Platelet Count 133 x10^3/uL (140-400) Sodium Level 137 mmol/L (136-145) Potassium Level 3.9 mmol/L (3.5-5.1) Chloride Level 109 mmol/L (98-107) Carbon Dioxide Level 18 mmol/L (21-32) Anion Gap 10 (6-14) Blood Urea Nitrogen 20 mg/dL (7-20) Creatinine 0.9 mg/dL (0.6-1.0) Estimated GFR (Cockcroft-Gault) 63.9 Glucose Level 97 mg/dL (70-99) Calcium Level 7.9 mg/dL (8.5-10.1) O2 Saturation 98 % (92-99) Arterial Blood pH 7.44 (7.35-7.45) Arterial Blood pCO2 at Patient Temp 26 mmHg (35-46) Arterial Blood pO2 at Patient Temp 126 mmHg (65-108) Arterial Blood HCO3 17 mmol/L (21-28) Arterial Blood Base Excess -6 mmol/L (-3-3) FiO2 40 Assessment and Plan Assessmemt and Plan Problems Medical Problems: (1) Acute respiratory acidosis Status: Acute (2) Cardiorespiratory arrest Status: Acute (3) Elevated d-dimer Status: Acute (4) Elevated troponin Status: Acute (5) Hyperglycemia Status: Acute (6) Hypokalemia Status: Acute (7) NSTEMI (non-ST elevated myocardial infarction) Status: Acute (8) Pneumonia Status: Acute (9) Sepsis Status: Acute (10) Severe sepsis Status: Acute Comment Review of Relevant I have reviewed the following items fracisco (where applicable) has been applied. Labs Laboratory Tests Test 04/11/19 10:02 04/11/19 11:22 04/11/19 11:40 04/11/19 12:26 Glucose (Fingerstick) 190 mg/dL (70-99) 163 mg/dL (70-99) 129 mg/dL (70-99) White Blood Count 17.3 x10^3/uL (4.0-11.0) Red Blood Count 3.91 x10^6/uL (3.50-5.40) Hemoglobin 11.4 g/dL (12.0-15.5) Hematocrit 34.7 % (36.0-47.0) Mean Corpuscular Volume 89 fL (79-100) Mean Corpuscular Hemoglobin 29 pg (25-35) Mean Corpuscular Hemoglobin Concent 33 g/dL (31-37) Red Cell Distribution Width 13.0 % (11.5-14.5) Platelet Count 157 x10^3/uL (140-400) Prothrombin Time 17.2 SEC (11.7-14.0) Prothromb Time International Ratio 1.4 (0.8-1.1) Activated Partial Thromboplast Time 127 SEC (24-38) Urine Collection Type Unknown Urine Color Yellow Urine Clarity Clear Urine pH 5.0 Urine Specific [place] 1.025 Urine Protein Negative mg/dL (NEG-TRACE) Urine Glucose (UA) 100 mg/dL (NEG) Urine Ketones (Stick) Negative mg/dL (NEG) Urine Blood Small (NEG) Urine Nitrite Negative (NEG) Urine Bilirubin Negative (NEG) Urine Urobilinogen Dipstick 0.2 mg/dL (0.2 mg/dL) Urine Leukocyte Esterase Negative (NEG) Urine RBC 11-20 /HPF (0-2) Urine WBC Occ /HPF (0-4) Urine Squamous Epithelial Cells Occ /LPF Urine Bacteria 0 /HPF (0-FEW) Urine Mucus Mod /LPF Sodium Level 140 mmol/L (136-145) Potassium Level 2.7 mmol/L (3.5-5.1) Chloride Level 111 mmol/L (98-107) Carbon Dioxide Level 14 mmol/L (21-32) Anion Gap 15 (6-14) Blood Urea Nitrogen 23 mg/dL (7-20) Creatinine 0.6 mg/dL (0.6-1.0) Estimated GFR (Cockcroft-Gault) 102.0 Glucose Level 133 mg/dL (70-99) Calcium Level 6.3 mg/dL (8.5-10.1) Ionized Calcium 1.01 mmol/L (1.13-1.32) Phosphorus Level 1.8 mg/dL (2.6-4.7) Magnesium Level 2.2 mg/dL (1.8-2.4) Urine Opiates Screen Neg (NEG) Urine Methadone Screen Neg (NEG) Urine Barbiturates Neg (NEG) Urine Phencyclidine Screen Neg (NEG) Urine Amphetamine/Methamphetamine Neg (NEG) Urine Benzodiazepines Screen Pos (NEG) Urine Cocaine Screen Neg (NEG) Urine Cannabinoids Screen Neg (NEG) Urine Ethyl Alcohol Neg (NEG) Test 04/11/19 13:37 04/11/19 14:36 04/11/19 15:40 04/11/19 17:06 Glucose (Fingerstick) 134 mg/dL (70-99) 151 mg/dL (70-99) 157 mg/dL (70-99) 144 mg/dL (70-99) Test 04/11/19 17:45 04/11/19 20:00 04/11/19 22:29 04/12/19 05:25 White Blood Count 16.4 x10^3/uL (4.0-11.0) 16.4 x10^3/uL (4.0-11.0) Red Blood Count 3.79 x10^6/uL (3.50-5.40) 3.44 x10^6/uL (3.50-5.40) Hemoglobin 11.1 g/dL (12.0-15.5) 10.0 g/dL (12.0-15.5) Hematocrit 33.4 % (36.0-47.0) 30.2 % (36.0-47.0) Mean Corpuscular Volume 88 fL (79-100) 88 fL (79-100) Mean Corpuscular Hemoglobin 29 pg (25-35) 29 pg (25-35) Mean Corpuscular Hemoglobin Concent 33 g/dL (31-37) 33 g/dL (31-37) Red Cell Distribution Width 12.8 % (11.5-14.5) 12.9 % (11.5-14.5) Platelet Count 147 x10^3/uL (140-400) 152 x10^3/uL (140-400) Neutrophils (%) (Auto) 89 % (31-73) Lymphocytes (%) (Auto) 8 % (24-48) Monocytes (%) (Auto) 3 % (0-9) Eosinophils (%) (Auto) 0 % (0-3) Basophils (%) (Auto) 0 % (0-3) Neutrophils # (Auto) 14.7 x10^3/uL (1.8-7.7) Lymphocytes # (Auto) 1.2 x10^3/uL (1.0-4.8) Monocytes # (Auto) 0.5 x10^3/uL (0.0-1.1) Eosinophils # (Auto) 0.0 x10^3/uL (0.0-0.7) Basophils # (Auto) 0.0 x10^3/uL (0.0-0.2) Prothrombin Time 17.0 SEC (11.7-14.0) Prothromb Time International Ratio 1.4 (0.8-1.1) Activated Partial Thromboplast Time 37 SEC (24-38) Sodium Level 137 mmol/L (136-145) Potassium Level 3.2 mmol/L (3.5-5.1) Chloride Level 108 mmol/L (98-107) Carbon Dioxide Level 18 mmol/L (21-32) Anion Gap 11 (6-14) Blood Urea Nitrogen 21 mg/dL (7-20) Creatinine 0.7 mg/dL (0.6-1.0) Estimated GFR (Cockcroft-Gault) 85.4 Glucose Level 151 mg/dL (70-99) Calcium Level 6.9 mg/dL (8.5-10.1) Ionized Calcium 1.10 mmol/L (1.13-1.32) Phosphorus Level 2.5 mg/dL (2.6-4.7) Magnesium Level 2.2 mg/dL (1.8-2.4) O2 Saturation 98 % (92-99) Arterial Blood pH 7.35 (7.35-7.45) Arterial Blood pH (Temp corrected) 7.39 Arterial Blood pCO2 at Patient Temp 28 mmHg (35-46) Arterial Blood pCO2 (Temp correct) 25 mmHg Arterial Blood pO2 at Patient Temp 135 mmHg (65-108) Arterial Blood pO2 (Temp corrected) 120 mmHg Arterial Blood HCO3 15 mmol/L (21-28) Arterial Blood Base Excess -9 mmol/L (-3-3) FiO2 50 Glucose (Fingerstick) 125 mg/dL (70-99) Test 04/12/19 05:28 04/12/19 07:10 04/13/19 06:00 04/13/19 07:45 Sodium Level 132 mmol/L (136-145) 137 mmol/L (136-145) Potassium Level 4.2 mmol/L (3.5-5.1) 3.9 mmol/L (3.5-5.1) Chloride Level 104 mmol/L (98-107) 109 mmol/L (98-107) Carbon Dioxide Level 18 mmol/L (21-32) 18 mmol/L (21-32) Anion Gap 10 (6-14) 10 (6-14) Blood Urea Nitrogen 23 mg/dL (7-20) 20 mg/dL (7-20) Creatinine 0.8 mg/dL (0.6-1.0) 0.9 mg/dL (0.6-1.0) Estimated GFR (Cockcroft-Gault) 73.2 63.9 BUN/Creatinine Ratio 29 (6-20) Glucose Level 136 mg/dL (70-99) 97 mg/dL (70-99) Calcium Level 7.0 mg/dL (8.5-10.1) 7.9 mg/dL (8.5-10.1) Total Bilirubin 0.2 mg/dL (0.2-1.0) Aspartate Amino Transf (AST/SGOT) 70 U/L (15-37) Alanine Aminotransferase (ALT/SGPT) 70 U/L (14-59) Alkaline Phosphatase 57 U/L (46-116) Total Protein 4.0 g/dL (6.4-8.2) Albumin 1.8 g/dL (3.4-5.0) Albumin/Globulin Ratio 0.8 (1.0-1.7) O2 Saturation 97 % (92-99) 98 % (92-99) Arterial Blood pH 7.37 (7.35-7.45) 7.44 (7.35-7.45) Arterial Blood pCO2 at Patient Temp 28 mmHg (35-46) 26 mmHg (35-46) Arterial Blood pO2 at Patient Temp 103 mmHg (65-108) 126 mmHg (65-108) Arterial Blood HCO3 16 mmol/L (21-28) 17 mmol/L (21-28) Arterial Blood Base Excess -8 mmol/L (-3-3) -6 mmol/L (-3-3) FiO2 40 40 White Blood Count 10.2 x10^3/uL (4.0-11.0) Red Blood Count 3.12 x10^6/uL (3.50-5.40) Hemoglobin 9.3 g/dL (12.0-15.5) Hematocrit 27.3 % (36.0-47.0) Mean Corpuscular Volume 88 fL (79-100) Mean Corpuscular Hemoglobin 30 pg (25-35) Mean Corpuscular Hemoglobin Concent 34 g/dL (31-37) Red Cell Distribution Width 13.1 % (11.5-14.5) Platelet Count 133 x10^3/uL (140-400) Laboratory Tests Test 04/13/19 06:00 04/13/19 07:45 White Blood Count 10.2 x10^3/uL (4.0-11.0) Red Blood Count 3.12 x10^6/uL (3.50-5.40) Hemoglobin 9.3 g/dL (12.0-15.5) Hematocrit 27.3 % (36.0-47.0) Mean Corpuscular Volume 88 fL (79-100) Mean Corpuscular Hemoglobin 30 pg (25-35) Mean Corpuscular Hemoglobin Concent 34 g/dL (31-37) Red Cell Distribution Width 13.1 % (11.5-14.5) Platelet Count 133 x10^3/uL (140-400) Sodium Level 137 mmol/L (136-145) Potassium Level 3.9 mmol/L (3.5-5.1) Chloride Level 109 mmol/L (98-107) Carbon Dioxide Level 18 mmol/L (21-32) Anion Gap 10 (6-14) Blood Urea Nitrogen 20 mg/dL (7-20) Creatinine 0.9 mg/dL (0.6-1.0) Estimated GFR (Cockcroft-Gault) 63.9 Glucose Level 97 mg/dL (70-99) Calcium Level 7.9 mg/dL (8.5-10.1) O2 Saturation 98 % (92-99) Arterial Blood pH 7.44 (7.35-7.45) Arterial Blood pCO2 at Patient Temp 26 mmHg (35-46) Arterial Blood pO2 at Patient Temp 126 mmHg (65-108) Arterial Blood HCO3 17 mmol/L (21-28) Arterial Blood Base Excess -6 mmol/L (-3-3) FiO2 40 Microbiology 04/10/19 Blood Culture - Preliminary, Resulted NO GROWTH AFTER 2 DAYS Medications Current Medications Norepinephrine Bitartrate 8 mg/ Dextrose 258 ml @ 13.855 mls/ hr 1X ONCE IV Last administered on 04/10/19at 12:40; Start 04/10/19 at 12:30; Stop 04/10/19 at 12:31; Status DC Amiodarone HCl 450 mg/Dextrose 259 ml @ 33 mls/hr 1X ONCE IV Last administered on 04/10/19at 12:55; Start 04/10/19 at 12:45; Stop 04/10/19 at 20:35; Status DC Sodium Chloride 1,000 ml @ 1,000 mls/hr Q1H IV Last administered on 04/10/19at 12:20; Start 04/10/19 at 12:13; Stop 04/10/19 at 13:12; Status DC Midazolam HCl 50 mg/Sodium Chloride 50 ml @ 1 mls/hr 1X ONCE IV Last administered on 04/10/19at 13:35; Start 04/10/19 at 13:15; Stop 04/11/19 at 13:55; Status DC Potassium Chloride/Water 100 ml @ 50 mls/hr 1X ONCE IV ; Start 04/10/19 at 13:15; Stop 04/10/19 at 13:16; Status DC Etomidate (Amidate) 20 mg STK-MED ONCE IV ; Start 04/10/19 at 13:14; Stop 04/10/19 at 13:14; Status DC Midazolam HCl (Versed) 5 mg STK-MED ONCE .ROUTE ; Start 04/10/19 at 13:15; Stop 04/10/19 at 13:15; Status DC Succinylcholine Chloride (Anectine) 200 mg STK-MED ONCE .ROUTE ; Start 04/10/19 at 13:15; Stop 04/10/19 at 13:15; Status DC Potassium Chloride/Water 100 ml @ 100 mls/hr Q1H IV ; Start 04/10/19 at 14:00; Stop 04/10/19 at 15:59; Status DC Sodium Bicarbonate (Sodium Bicarb Adult 8.4% Syr) 50 meq 1X ONCE IV Last administered on 04/10/19at 17:17; Start 04/10/19 at 13:30; Stop 04/10/19 at 13:31; Status DC Sodium Chloride 1,000 ml @ 150 mls/hr Q6H40M IV ; Start 04/10/19 at 13:28; Stop 04/11/19 at 00:46; Status DC Piperacillin Sod/ Tazobactam Sod 3.375 gm/Sodium Chloride 50 ml @ 100 mls/hr 1X ONCE IV Last administered on 04/10/19at 18:35; Start 04/10/19 at 13:45; Stop 04/10/19 at 14:14; Status DC Vancomycin HCl 250 ml @ 250 mls/hr 1X ONCE IV ; Start 04/10/19 at 13:45; Stop 04/10/19 at 14:44; Status UNV Sodium Chloride 1,000 ml @ 1,000 mls/hr 1X ONCE IV Last administered on 04/10/19at 13:45; Start 04/10/19 at 13:45; Stop 04/10/19 at 14:44; Status DC Vancomycin HCl 1.75 gm/Sodium Chloride 500 ml @ 250 mls/hr 1X ONCE IV ; Start 04/10/19 at 14:00; Stop 04/10/19 at 15:59; Status DC Iodixanol (Visipaque 320) 100 ml STK-MED ONCE .ROUTE ; Start 04/10/19 at 14:01; Stop 04/10/19 at 14:02; Status DC Heparin Sodium/ Sodium Chloride 500 ml @ As Directed STK-MED ONCE .ROUTE ; Start 04/10/19 at 14:02; Stop 04/10/19 at 14:02; Status DC Lidocaine HCl (Xylocaine-Mpf 1% 2ml Vial) 2 ml STK-MED ONCE .ROUTE ; Start 04/10/19 at 14:02; Stop 04/10/19 at 14:02; Status DC Lidocaine HCl (Lidocaine 1% 20ml Vial) 20 ml STK-MED ONCE .ROUTE ; Start 04/10/19 at 14:03; Stop 04/10/19 at 14:04; Status DC Heparin Sodium (Porcine) (Heparin Sodium) 10,000 unit STK-MED ONCE .ROUTE ; Start 04/10/19 at 15:16; Stop 04/10/19 at 15:16; Status DC Heparin Sodium/ Sodium Chloride (HEPARIN for ARTERIAL LINE FLUSH) 1,000 unit 1X ONCE IART Last administered on 04/10/19at 15:42; Start 04/10/19 at 15:30; Stop 04/10/19 at 23:39; Status DC Iodixanol (Visipaque 320) 104 ml 1X ONCE IART Last administered on 04/10/19at 15:42; Start 04/10/19 at 15:30; Stop 04/10/19 at 23:39; Status DC Heparin Sodium (Porcine) (Heparin Sodium) 4,000 unit 1X ONCE IV Last administered on 04/10/19at 15:42; Start 04/10/19 at 15:30; Stop 04/10/19 at 23:39; Status DC Lidocaine HCl (Lidocaine 1% 20ml Vial) 20 ml 1X ONCE INJ Last administered on 04/10/19at 15:42; Start 04/10/19 at 15:30; Stop 04/10/19 at 23:39; Status DC Atropine Sulfate (ATROPINE 1mg SYRINGE) 1 mg 1X ONCE IV Last administered on 04/10/19at 12:42; Start 04/10/19 at 12:42; Stop 04/10/19 at 15:42; Status DC Midazolam HCl (Versed) 5 mg 1X ONCE IV Last administered on 04/10/19at 13:15; Start 04/10/19 at 13:15; Stop 04/10/19 at 15:42; Status DC Vecuronium [place] (Norcuron Bolus) 10 mg STK-MED ONCE IV ; Start 04/10/19 at 16:54; Stop 04/10/19 at 16:55; Status DC Fentanyl Citrate (Fentanyl 2ml Vial) 100 mcg STK-MED ONCE .ROUTE ; Start 04/10/19 at 16:55; Stop 04/10/19 at 16:56; Status DC Fentanyl Citrate (Fentanyl 2ml Vial) 100 mcg 1X ONCE IV Last administered on 04/10/19at 17:16; Start 04/10/19 at 17:00; Stop 04/10/19 at 17:01; Status DC Midazolam HCl (Versed) 2 mg 1X ONCE IV ; Start 04/10/19 at 17:00; Stop 04/10/19 at 17:01; Status DC Magnesium Sulfate/ Dextrose 100 ml @ 100 mls/hr 1X ONCE IV Last administered on 04/10/19at 17:16; Start 04/10/19 at 18:00; Stop 04/10/19 at 18:59; Status DC Buspirone HCl (Buspar) 30 mg Q8HRS NG Last administered on 04/11/19at 21:13; Start 04/10/19 at 17:00; Stop 04/12/19 at 05:17; Status DC Acetaminophen (Tylenol) 650 mg Q4H NG Last administered on 04/12/19at 00:27; Start 04/10/19 at 17:00; Stop 04/12/19 at 03:15; Status DC Artificial Tears (Artificial Tears) 1 drop Q6HRS OU Last administered on 04/12/19at 00:27; Start 04/10/19 at 18:00; Stop 04/12/19 at 05:17; Status DC Artificial Tears (Artificial Tears) 1 drop PRN Q15MIN PRN OU DRY EYE; Start 04/10/19 at 17:00 Heparin Sodium (Porcine) (Heparin Sodium) 5,000 unit BID SQ ; Start 04/10/19 at 21:00; Status Cancel Pantoprazole Sodium (PROTONIX VIAL for IV PUSH) 40 mg DAILY IVP Last administered on 04/13/19at 08:34; Start 04/10/19 at 18:00 Fentanyl Citrate 30 ml @ 0 mls/hr CONT PRN IV PER PROTOCOL. Last administered on 04/13/19at 04:38; Start 04/10/19 at 17:00 Propofol 100 ml @ 0 mls/hr CONT PRN IV PER PROTOCOL. Last administered on 04/12/19at 23:59; Start 04/10/19 at 17:00 Midazolam HCl 50 mg/Sodium Chloride 50 ml @ 0 mls/hr CONT PRN IV PER PROTOCOL. Last administered on 04/12/19at 00:27; Start 04/10/19 at 17:00 Vecuronium [place] (Norcuron Bolus) 7 mg PRN Q1HR PRN IV SHIVERING Last administered on 04/11/19at 15:48; Start 04/10/19 at 17:00 Heparin Sodium/ Dextrose 250 ml @ 0 mls/hr CONT PRN IV PER PROTOCOL; Start 04/10/19 at 17:30; Stop 04/10/19 at 23:42; Status DC Heparin Sodium (Porcine) (Heparin Sodium) 2,150 unit PRN Q6HRS PRN IV FOR UFH LEVEL LESS THAN 0.2; Start 04/10/19 at 17:30; Stop 04/10/19 at 23:39; Status DC Heparin Sodium (Porcine) (Heparin Sodium) 1,050 unit PRN Q6HRS PRN IV FOR UFH LEVEL 0.2 - 0.29; Start 04/10/19 at 17:30; Stop 04/10/19 at 23:39; Status DC Hydralazine HCl (Apresoline Inj) 10 mg PRN Q6HRS PRN IVP ELEVATED BP, SEE COMMENTS; Start 04/10/19 at 18:00 Hydralazine HCl (Apresoline Inj) 20 mg STK-MED ONCE .ROUTE ; Start 04/10/19 at 1 7:56; Stop 04/10/19 at 17:56; Status DC Iohexol (Omnipaque 350 Mg/ml) 75 ml 1X ONCE IV Last administered on 04/10/19at 18:45; Start 04/10/19 at 18:45; Stop 04/10/19 at 18:46; Status DC Insulin Human Regular 100 unit/ Sodium Chloride 101 ml @ 0 mls/hr CONT PRN IV SEE I/O RECORD Last administered on 04/11/19at 10:23; Start 04/10/19 at 19:30; Stop 04/12/19 at 03:15; Status DC Magnesium Sulfate/ Dextrose 100 ml @ 100 mls/hr PRN DAILY PRN IV MAG level 2.4-3.0mg/dl Last administered on 04/11/19at 08:44; Start 04/10/19 at 20:30 Potassium Chloride/Water 100 ml @ 100 mls/hr PRN DAILY PRN IV K+ level 3.1- 3.4mEq/L Last administered on 04/11/19at 06:50; Start 04/10/19 at 20:30 Magnesium Sulfate/ Dextrose 100 ml @ 100 mls/hr 1X PRN IV MAG level 2.4- 3.0mg/dl Last administered on 04/10/19at 22:17; Start 04/10/19 at 22:00; Stop 04/11/19 at 01:56; Status DC Potassium Chloride/Water 100 ml @ 100 mls/hr 1X PRN IV K+ level 3.1-3.4mEq/L Last administered on 04/10/19at 22:16; Start 04/10/19 at 22:00; Stop 04/11/19 at 01:55; Status DC Norepinephrine Bitartrate 8 mg/ Dextrose 258 ml @ 13.855 mls/ hr CONT PRN IV PER PROTOCOL Last administered on 04/10/19at 22:43; Start 04/10/19 at 22:45 Heparin Sodium/ Dextrose 250 ml @ 0 mls/hr CONT PRN IV PER PROTOCOL Last administered on 04/11/19at 00:43; Start 04/10/19 at 23:45; Stop 04/11/19 at 09:36; Status DC Heparin Sodium (Porcine) (Heparin Sodium) 1,800 unit PRN Q6HRS PRN IV FOR UFH LEVEL LESS THAN 0.2; Start 04/10/19 at 23:45; Stop 04/11/19 at 09:54; Status DC Amiodarone HCl 450 mg/Dextrose 259 ml @ 0 mls/hr CONT PRN IV SEE I/O RECORD Last administered on 04/12/19at 11:52; Start 04/11/19 at 00:00; Stop 04/11/19 at 19:36; Status DC Dextrose/Sodium Chloride 1,000 ml @ 75 mls/hr [id number] IV Last administered on 04/11/19at 01:57; Start 04/11/19 at 01:00; Stop 04/11/19 at 10:53; Status DC Potassium Chloride/Water 100 ml @ 50 mls/hr PRN DAILY PRN IV K+ level less than 3.1 mEq/l; Start 04/11/19 at 02:00; Status Cancel Potassium Chloride/Water 100 ml @ 100 mls/hr PRN Q1HR PRN IV K<3.1; Start 04/11/19 at 02:00 Magnesium Sulfate/ Dextrose 100 ml @ 100 mls/hr PRN DAILY PRN IV MAG level 2.4-3.0mg/dl; Start 04/11/19 at 06:45; Status UNV Potassium Chloride/Water 100 ml @ 100 mls/hr PRN DAILY PRN IV K+ level 3.1- 3.4mEq/L; Start 04/11/19 at 06:45; Status UNV Atropine Sulfate (ATROPINE 0.5mg SYRINGE) 0.25 mg 1X ONCE IM ; Start 04/11/19 at 09:45; Stop 04/11/19 at 09:38; Status DC Atropine Sulfate (ATROPINE 1mg SYRINGE) 0.25 mg 1X ONCE IM Last administered on 04/11/19at 09:55; Start 04/11/19 at 09:45; Stop 04/11/19 at 09:46; Status DC Dopamine HCl/ Dextrose 250 ml @ 6.676 mls/ hr CONT PRN IV SEE I/O RECORD Last administered on 04/12/19at 20:21; Start 04/11/19 at 10:00 Sodium Chloride 1,000 ml @ 75 mls/hr [id number] IV Last administered on 04/11/19at 19:36; Start 04/11/19 at 12:00 Heparin Sodium (Porcine) (Heparin Sodium) 5,000 unit BID SQ Last administered on 04/13/19at 08:35; Start 04/11/19 at 21:00 Atropine Sulfate (ATROPINE 1mg SYRINGE) 1 mg STK-MED ONCE .ROUTE ; Start 04/10/19 at 15:16; Stop 04/11/19 at 15:16; Status DC Amiodarone HCl 450 mg/Dextrose 259 ml @ 33 mls/hr CONT PRN PRN IV SEE I/O RECORD Last administered on 04/13/19at 04:37; Start 04/12/19 at 08:15 Acetaminophen (Tylenol) 650 mg PRN Q6HRS PRN PEG MILD PAIN / TEMP Last administered on 04/13/19at 00:02; Start 04/12/19 at 11:30 Dexmedetomidine HCl 400 mcg/ Sodium Chloride 100 ml @ 0 mls/hr CONT PRN IV ANXIETY / AGITATION Last administered on 04/13/19at 08:22; Start 04/13/19 at 08:00 Piperacillin Sod/ Tazobactam Sod 4.5 gm/Sodium Chloride 100 ml @ 200 mls/hr Q6HRS IV Last administered on 04/13/19at 09:20; Start 04/13/19 at 09:00 Active Scripts Active Reported Celebrex (Celecoxib) 100 Mg Capsule 1 Cap PO BID Verapamil Er (Verapamil Hcl) 240 Mg Cap24h.pel 1 Cap PO DAILY Vitals/I & O Vital Sign - Last 24 Hours 04/12/19 04/12/19 04/12/19 04/12/19 10:00 10:52 11:00 11:22 Pulse 55 60 Resp 20 20 20 B/P (MAP) 95/40 (58) 94/40 (58) Pulse Ox 100 96 100 100 O2 Delivery Ventilator Ventilator Ventilator 04/12/19 04/12/19 04/12/19 04/12/19 11:30 12:00 12:00 13:00 Temp 100.4 100.4 Pulse 60 58 Resp 20 20 B/P (MAP) 98/44 (62) 99/44 (62) Pulse Ox 100 100 100 O2 Delivery Ventilator Ventilator Mechanical Ventilator Ventilator 04/12/19 04/12/19 04/12/19 04/12/19 13:33 14:00 15:00 15:23 Pulse 52 58 Resp 20 20 B/P (MAP) 97/39 (58) 85/40 (55) Pulse Ox 100 100 100 100 O2 Delivery Ventilator Ventilator Ventilator Ventilator 04/12/19 04/12/19 04/12/19 04/12/19 16:00 16:00 17:00 17:07 Temp 99.7 99.7 Pulse 57 58 Resp 20 20 B/P (MAP) 107/46 (66) 102/42 (62) Pulse Ox 100 100 100 O2 Delivery Mechanical Ventilator Ventilator Ventilator Ventilator 04/12/19 04/12/19 04/12/19 04/12/19 18:00 19:00 19:49 20:00 Pulse 56 57 Resp 20 20 B/P (MAP) 106/44 (64) 91/38 (55) Pulse Ox 100 100 100 O2 Delivery Ventilator Ventilator Ventilator Mechanical Ventilator 04/12/19 04/12/19 04/12/19 04/12/19 20:00 21:00 22:00 23:00 Temp 100.4 100.4 Pulse 62 65 63 61 Resp 20 20 20 20 B/P (MAP) 106/46 (66) 112/44 (66) 98/38 (58) 103/44 (63) Pulse Ox 100 100 100 100 O2 Delivery Ventilator Ventilator Ventilator Ventilator 04/13/19 04/13/19 04/13/19 04/13/19 00:00 00:00 00:06 01:00 Temp 101.5 101.5 Pulse 69 65 Resp 20 20 B/P (MAP) 119/46 (70) 89/31 (50) Pulse Ox 100 100 100 O2 Delivery Ventilator Mechanical Ventilator Ventilator Ventilator 04/13/19 04/13/19 04/13/19 04/13/19 02:00 02:15 03:00 04:00 Temp 100.8 100.8 Pulse 65 71 82 Resp 20 20 20 B/P (MAP) 95/35 (55) 105/43 (63) 123/49 (73) Pulse Ox 100 100 100 100 O2 Delivery Ventilator Ventilator Ventilator Ventilator 04/13/19 04/13/19 04/13/19 04/13/19 04:00 04:17 05:00 05:57 Pulse 62 Resp 20 B/P (MAP) 96/37 (56) Pulse Ox 100 100 100 O2 Delivery Mechanical Ventilator Ventilator Ventilator Ventilator 04/13/19 04/13/19 06:00 07:44 Pulse 82 Resp 20 B/P (MAP) 136/50 (78) Pulse Ox 100 100 O2 Delivery Ventilator Ventilator Intake and Output 04/12/19 04/12/19 04/13/19 15:00 23:00 07:00 Intake Total 278 ml Output Total 365 ml 660 ml 860 ml Balance -365 ml -382 ml -860 ml BHARGAVI WILKS MD Apr 13, 2019 09:32
--- NOTE | 2019-04-13 11:40 | PDOC ---
PROGRESS NOTES Subjective Subjective Patient seen and examined Objective Objective Vital Signs Date Time Temp Pulse Resp B/P (MAP) Pulse Ox O2 Delivery O2 Flow Rate FiO2 04/13/19 10:26 100 Ventilator 04/13/19 10:00 58 20 108/36 (60) 04/13/19 08:00 99.8 99.8 Intake and Output 04/13/19 07:00 Intake Total 278 ml Output Total 1985 ml Balance -1707 ml Intake Oral 0 ml IV Total 278 ml Output Urine Total 1985 ml Physical Exam Abdomen: Normal bowel sounds Heart: Regular rate General: Other (remains intubated) Lungs: Other (mildly decreased breath sounds) Assessment Assessment Problems Medical Problems: (1) Acute respiratory acidosis Status: Acute (2) Cardiorespiratory arrest Status: Acute (3) Elevated d-dimer Status: Acute (4) Elevated troponin Status: Acute (5) Hyperglycemia Status: Acute (6) Hypokalemia Status: Acute (7) NSTEMI (non-ST elevated myocardial infarction) Status: Acute (8) Pneumonia Status: Acute (9) Sepsis Status: Acute (10) Severe sepsis Status: Acute 1. Cardiac arrest from VT/VF. Cardiac catheterization showed nonobstructive coronary artery disease with normal left ventricle systolic function. Telemetry showed sinus bradycardia without any VT/VF. CTA of the chest did not show any acute pulmonary embolism. Continue amiodarone infusion per protocol. Plan for AICD implantation for secondary prevention of sudden cardiac once patient is extubated. 2. Acute respiratory failure secondary to #1 s/p intubation and sedation. Continue vent management per pulmonary team. Attempting to wean today. 3. Hypertension: Controlled 4. Severe sinus bradycardia. Largely resolved. Comment Review of Relevant I have reviewed the following items fracisco (where applicable) has been applied. Labs Laboratory Tests Test 04/11/19 11:40 04/11/19 12:26 04/11/19 13:37 04/11/19 14:36 White Blood Count 17.3 x10^3/uL (4.0-11.0) Red Blood Count 3.91 x10^6/uL (3.50-5.40) Hemoglobin 11.4 g/dL (12.0-15.5) Hematocrit 34.7 % (36.0-47.0) Mean Corpuscular Volume 89 fL (79-100) Mean Corpuscular Hemoglobin 29 pg (25-35) Mean Corpuscular Hemoglobin Concent 33 g/dL (31-37) Red Cell Distribution Width 13.0 % (11.5-14.5) Platelet Count 157 x10^3/uL (140-400) Prothrombin Time 17.2 SEC (11.7-14.0) Prothromb Time International Ratio 1.4 (0.8-1.1) Activated Partial Thromboplast Time 127 SEC (24-38) Urine Collection Type Unknown Urine Color Yellow Urine Clarity Clear Urine pH 5.0 Urine Specific [place] 1.025 Urine Protein Negative mg/dL (NEG-TRACE) Urine Glucose (UA) 100 mg/dL (NEG) Urine Ketones (Stick) Negative mg/dL (NEG) Urine Blood Small (NEG) Urine Nitrite Negative (NEG) Urine Bilirubin Negative (NEG) Urine Urobilinogen Dipstick 0.2 mg/dL (0.2 mg/dL) Urine Leukocyte Esterase Negative (NEG) Urine RBC 11-20 /HPF (0-2) Urine WBC Occ /HPF (0-4) Urine Squamous Epithelial Cells Occ /LPF Urine Bacteria 0 /HPF (0-FEW) Urine Mucus Mod /LPF Sodium Level 140 mmol/L (136-145) Potassium Level 2.7 mmol/L (3.5-5.1) Chloride Level 111 mmol/L (98-107) Carbon Dioxide Level 14 mmol/L (21-32) Anion Gap 15 (6-14) Blood Urea Nitrogen 23 mg/dL (7-20) Creatinine 0.6 mg/dL (0.6-1.0) Estimated GFR (Cockcroft-Gault) 102.0 Glucose Level 133 mg/dL (70-99) Calcium Level 6.3 mg/dL (8.5-10.1) Ionized Calcium 1.01 mmol/L (1.13-1.32) Phosphorus Level 1.8 mg/dL (2.6-4.7) Magnesium Level 2.2 mg/dL (1.8-2.4) Urine Opiates Screen Neg (NEG) Urine Methadone Screen Neg (NEG) Urine Barbiturates Neg (NEG) Urine Phencyclidine Screen Neg (NEG) Urine Amphetamine/Methamphetamine Neg (NEG) Urine Benzodiazepines Screen Pos (NEG) Urine Cocaine Screen Neg (NEG) Urine Cannabinoids Screen Neg (NEG) Urine Ethyl Alcohol Neg (NEG) Glucose (Fingerstick) 129 mg/dL (70-99) 134 mg/dL (70-99) 151 mg/dL (70-99) Test 04/11/19 15:40 04/11/19 17:06 04/11/19 17:45 04/11/19 20:00 Glucose (Fingerstick) 157 mg/dL (70-99) 144 mg/dL (70-99) White Blood Count 16.4 x10^3/uL (4.0-11.0) Red Blood Count 3.79 x10^6/uL (3.50-5.40) Hemoglobin 11.1 g/dL (12.0-15.5) Hematocrit 33.4 % (36.0-47.0) Mean Corpuscular Volume 88 fL (79-100) Mean Corpuscular Hemoglobin 29 pg (25-35) Mean Corpuscular Hemoglobin Concent 33 g/dL (31-37) Red Cell Distribution Width 12.8 % (11.5-14.5) Platelet Count 147 x10^3/uL (140-400) Neutrophils (%) (Auto) 89 % (31-73) Lymphocytes (%) (Auto) 8 % (24-48) Monocytes (%) (Auto) 3 % (0-9) Eosinophils (%) (Auto) 0 % (0-3) Basophils (%) (Auto) 0 % (0-3) Neutrophils # (Auto) 14.7 x10^3/uL (1.8-7.7) Lymphocytes # (Auto) 1.2 x10^3/uL (1.0-4.8) Monocytes # (Auto) 0.5 x10^3/uL (0.0-1.1) Eosinophils # (Auto) 0.0 x10^3/uL (0.0-0.7) Basophils # (Auto) 0.0 x10^3/uL (0.0-0.2) Prothrombin Time 17.0 SEC (11.7-14.0) Prothromb Time International Ratio 1.4 (0.8-1.1) Activated Partial Thromboplast Time 37 SEC (24-38) Sodium Level 137 mmol/L (136-145) Potassium Level 3.2 mmol/L (3.5-5.1) Chloride Level 108 mmol/L (98-107) Carbon Dioxide Level 18 mmol/L (21-32) Anion Gap 11 (6-14) Blood Urea Nitrogen 21 mg/dL (7-20) Creatinine 0.7 mg/dL (0.6-1.0) Estimated GFR (Cockcroft-Gault) 85.4 Glucose Level 151 mg/dL (70-99) Calcium Level 6.9 mg/dL (8.5-10.1) Ionized Calcium 1.10 mmol/L (1.13-1.32) Phosphorus Level 2.5 mg/dL (2.6-4.7) Magnesium Level 2.2 mg/dL (1.8-2.4) O2 Saturation 98 % (92-99) Arterial Blood pH 7.35 (7.35-7.45) Arterial Blood pH (Temp corrected) 7.39 Arterial Blood pCO2 at Patient Temp 28 mmHg (35-46) Arterial Blood pCO2 (Temp correct) 25 mmHg Arterial Blood pO2 at Patient Temp 135 mmHg (65-108) Arterial Blood pO2 (Temp corrected) 120 mmHg Arterial Blood HCO3 15 mmol/L (21-28) Arterial Blood Base Excess -9 mmol/L (-3-3) FiO2 50 Test 04/11/19 22:29 04/12/19 05:25 04/12/19 05:28 04/12/19 07:10 Glucose (Fingerstick) 125 mg/dL (70-99) White Blood Count 16.4 x10^3/uL (4.0-11.0) Red Blood Count 3.44 x10^6/uL (3.50-5.40) Hemoglobin 10.0 g/dL (12.0-15.5) Hematocrit 30.2 % (36.0-47.0) Mean Corpuscular Volume 88 fL (79-100) Mean Corpuscular Hemoglobin 29 pg (25-35) Mean Corpuscular Hemoglobin Concent 33 g/dL (31-37) Red Cell Distribution Width 12.9 % (11.5-14.5) Platelet Count 152 x10^3/uL (140-400) Sodium Level 132 mmol/L (136-145) Potassium Level 4.2 mmol/L (3.5-5.1) Chloride Level 104 mmol/L (98-107) Carbon Dioxide Level 18 mmol/L (21-32) Anion Gap 10 (6-14) Blood Urea Nitrogen 23 mg/dL (7-20) Creatinine 0.8 mg/dL (0.6-1.0) Estimated GFR (Cockcroft-Gault) 73.2 BUN/Creatinine Ratio 29 (6-20) Glucose Level 136 mg/dL (70-99) Calcium Level 7.0 mg/dL (8.5-10.1) Total Bilirubin 0.2 mg/dL (0.2-1.0) Aspartate Amino Transf (AST/SGOT) 70 U/L (15-37) Alanine Aminotransferase (ALT/SGPT) 70 U/L (14-59) Alkaline Phosphatase 57 U/L (46-116) Total Protein 4.0 g/dL (6.4-8.2) Albumin 1.8 g/dL (3.4-5.0) Albumin/Globulin Ratio 0.8 (1.0-1.7) O2 Saturation 97 % (92-99) Arterial Blood pH 7.37 (7.35-7.45) Arterial Blood pCO2 at Patient Temp 28 mmHg (35-46) Arterial Blood pO2 at Patient Temp 103 mmHg (65-108) Arterial Blood HCO3 16 mmol/L (21-28) Arterial Blood Base Excess -8 mmol/L (-3-3) FiO2 40 Test 04/13/19 06:00 04/13/19 07:45 White Blood Count 10.2 x10^3/uL (4.0-11.0) Red Blood Count 3.12 x10^6/uL (3.50-5.40) Hemoglobin 9.3 g/dL (12.0-15.5) Hematocrit 27.3 % (36.0-47.0) Mean Corpuscular Volume 88 fL (79-100) Mean Corpuscular Hemoglobin 30 pg (25-35) Mean Corpuscular Hemoglobin Concent 34 g/dL (31-37) Red Cell Distribution Width 13.1 % (11.5-14.5) Platelet Count 133 x10^3/uL (140-400) Sodium Level 137 mmol/L (136-145) Potassium Level 3.9 mmol/L (3.5-5.1) Chloride Level 109 mmol/L (98-107) Carbon Dioxide Level 18 mmol/L (21-32) Anion Gap 10 (6-14) Blood Urea Nitrogen 20 mg/dL (7-20) Creatinine 0.9 mg/dL (0.6-1.0) Estimated GFR (Cockcroft-Gault) 63.9 Glucose Level 97 mg/dL (70-99) Calcium Level 7.9 mg/dL (8.5-10.1) O2 Saturation 98 % (92-99) Arterial Blood pH 7.44 (7.35-7.45) Arterial Blood pCO2 at Patient Temp 26 mmHg (35-46) Arterial Blood pO2 at Patient Temp 126 mmHg (65-108) Arterial Blood HCO3 17 mmol/L (21-28) Arterial Blood Base Excess -6 mmol/L (-3-3) FiO2 40 Laboratory Tests Test 04/13/19 06:00 04/13/19 07:45 White Blood Count 10.2 x10^3/uL (4.0-11.0) Red Blood Count 3.12 x10^6/uL (3.50-5.40) Hemoglobin 9.3 g/dL (12.0-15.5) Hematocrit 27.3 % (36.0-47.0) Mean Corpuscular Volume 88 fL (79-100) Mean Corpuscular Hemoglobin 30 pg (25-35) Mean Corpuscular Hemoglobin Concent 34 g/dL (31-37) Red Cell Distribution Width 13.1 % (11.5-14.5) Platelet Count 133 x10^3/uL (140-400) Sodium Level 137 mmol/L (136-145) Potassium Level 3.9 mmol/L (3.5-5.1) Chloride Level 109 mmol/L (98-107) Carbon Dioxide Level 18 mmol/L (21-32) Anion Gap 10 (6-14) Blood Urea Nitrogen 20 mg/dL (7-20) Creatinine 0.9 mg/dL (0.6-1.0) Estimated GFR (Cockcroft-Gault) 63.9 Glucose Level 97 mg/dL (70-99) Calcium Level 7.9 mg/dL (8.5-10.1) O2 Saturation 98 % (92-99) Arterial Blood pH 7.44 (7.35-7.45) Arterial Blood pCO2 at Patient Temp 26 mmHg (35-46) Arterial Blood pO2 at Patient Temp 126 mmHg (65-108) Arterial Blood HCO3 17 mmol/L (21-28) Arterial Blood Base Excess -6 mmol/L (-3-3) FiO2 40 Microbiology 04/10/19 Blood Culture - Preliminary, Resulted NO GROWTH AFTER 2 DAYS Medications Current Medications Norepinephrine Bitartrate 8 mg/ Dextrose 258 ml @ 13.855 mls/ hr 1X ONCE IV Last administered on 04/10/19at 12:40; Start 04/10/19 at 12:30; Stop 04/10/19 at 12:31; Status DC Amiodarone HCl 450 mg/Dextrose 259 ml @ 33 mls/hr 1X ONCE IV Last administered on 04/10/19at 12:55; Start 04/10/19 at 12:45; Stop 04/10/19 at 20:35; Status DC Sodium Chloride 1,000 ml @ 1,000 mls/hr Q1H IV Last administered on 04/10/19at 12:20; Start 04/10/19 at 12:13; Stop 04/10/19 at 13:12; Status DC Midazolam HCl 50 mg/Sodium Chloride 50 ml @ 1 mls/hr 1X ONCE IV Last admi nistered on 04/10/19at 13:35; Start 04/10/19 at 13:15; Stop 04/11/19 at 13:55; Status DC Potassium Chloride/Water 100 ml @ 50 mls/hr 1X ONCE IV ; Start 04/10/19 at 13:15; Stop 04/10/19 at 13:16; Status DC Etomidate (Amidate) 20 mg STK-MED ONCE IV ; Start 04/10/19 at 13:14; Stop 04/10/19 at 13:14; Status DC Midazolam HCl (Versed) 5 mg STK-MED ONCE .ROUTE ; Start 04/10/19 at 13:15; Stop 04/10/19 at 13:15; Status DC Succinylcholine Chloride (Anectine) 200 mg STK-MED ONCE .ROUTE ; Start 04/10/19 at 13:15; Stop 04/10/19 at 13:15; Status DC Potassium Chloride/Water 100 ml @ 100 mls/hr Q1H IV ; Start 04/10/19 at 14:00; Stop 04/10/19 at 15:59; Status DC Sodium Bicarbonate (Sodium Bicarb Adult 8.4% Syr) 50 meq 1X ONCE IV Last administered on 04/10/19at 17:17; Start 04/10/19 at 13:30; Stop 04/10/19 at 13:31; Status DC Sodium Chloride 1,000 ml @ 150 mls/hr Q6H40M IV ; Start 04/10/19 at 13:28; Stop 04/11/19 at 00:46; Status DC Piperacillin Sod/ Tazobactam Sod 3.375 gm/Sodium Chloride 50 ml @ 100 mls/hr 1X ONCE IV Last administered on 04/10/19at 18:35; Start 04/10/19 at 13:45; Stop 04/10/19 at 14:14; Status DC Vancomycin HCl 250 ml @ 250 mls/hr 1X ONCE IV ; Start 04/10/19 at 13:45; Stop 04/10/19 at 14:44; Status UNV Sodium Chloride 1,000 ml @ 1,000 mls/hr 1X ONCE IV Last administered on 04/10/19at 13:45; Start 04/10/19 at 13:45; Stop 04/10/19 at 14:44; Status DC Vancomycin HCl 1.75 gm/Sodium Chloride 500 ml @ 250 mls/hr 1X ONCE IV ; Start 04/10/19 at 14:00; Stop 04/10/19 at 15:59; Status DC Iodixanol (Visipaque 320) 100 ml STK-MED ONCE .ROUTE ; Start 04/10/19 at 14:01; Stop 04/10/19 at 14:02; Status DC Heparin Sodium/ Sodium Chloride 500 ml @ As Directed STK-MED ONCE .ROUTE ; Start 04/10/19 at 14:02; Stop 04/10/19 at 14:02; Status DC Lidocaine HCl (Xylocaine-Mpf 1% 2ml Vial) 2 ml STK-MED ONCE .ROUTE ; Start 04/10/19 at 14:02; Stop 04/10/19 at 14:02; Status DC Lidocaine HCl (Lidocaine 1% 20ml Vial) 20 ml STK-MED ONCE .ROUTE ; Start 04/10/19 at 14:03; Stop 04/10/19 at 14:04; Status DC Heparin Sodium (Porcine) (Heparin Sodium) 10,000 unit STK-MED ONCE .ROUTE ; Start 04/10/19 at 15:16; Stop 04/10/19 at 15:16; Status DC Heparin Sodium/ Sodium Chloride (HEPARIN for ARTERIAL LINE FLUSH) 1,000 unit 1X ONCE IART Last administered on 04/10/19at 15:42; Start 04/10/19 at 15:30; Stop 04/10/19 at 23:39; Status DC Iodixanol (Visipaque 320) 104 ml 1X ONCE IART Last administered on 04/10/19at 15:42; Start 04/10/19 at 15:30; Stop 04/10/19 at 23:39; Status DC Heparin Sodium (Porcine) (Heparin Sodium) 4,000 unit 1X ONCE IV Last administered on 04/10/19at 15:42; Start 04/10/19 at 15:30; Stop 04/10/19 at 23:39; Status DC Lidocaine HCl (Lidocaine 1% 20ml Vial) 20 ml 1X ONCE INJ Last administered on 04/10/19at 15:42; Start 04/10/19 at 15:30; Stop 04/10/19 at 23:39; Status DC Atropine Sulfate (ATROPINE 1mg SYRINGE) 1 mg 1X ONCE IV Last administered on 04/10/19at 12:42; Start 04/10/19 at 12:42; Stop 04/10/19 at 15:42; Status DC Midazolam HCl (Versed) 5 mg 1X ONCE IV Last administered on 04/10/19at 13:15; Start 04/10/19 at 13:15; Stop 04/10/19 at 15:42; Status DC Vecuronium [place] (Norcuron Bolus) 10 mg STK-MED ONCE IV ; Start 04/10/19 at 16:54; Stop 04/10/19 at 16:55; Status DC Fentanyl Citrate (Fentanyl 2ml Vial) 100 mcg STK-MED ONCE .ROUTE ; Start 04/10/19 at 16:55; Stop 04/10/19 at 16:56; Status DC Fentanyl Citrate (Fentanyl 2ml Vial) 100 mcg 1X ONCE IV Last administered on 04/10/19at 17:16; Start 04/10/19 at 17:00; Stop 04/10/19 at 17:01; Status DC Midazolam HCl (Versed) 2 mg 1X ONCE IV ; Start 04/10/19 at 17:00; Stop 04/10/19 at 17:01; Status DC Magnesium Sulfate/ Dextrose 100 ml @ 100 mls/hr 1X ONCE IV Last administered on 04/10/19at 17:16; Start 04/10/19 at 18:00; Stop 04/10/19 at 18:59; Status DC Buspirone HCl (Buspar) 30 mg Q8HRS NG Last administered on 04/11/19at 21:13; Start 04/10/19 at 17:00; Stop 04/12/19 at 05:17; Status DC Acetaminophen (Tylenol) 650 mg Q4H NG Last administered on 04/12/19at 00:27; Start 04/10/19 at 17:00; Stop 04/12/19 at 03:15; Status DC Artificial Tears (Artificial Tears) 1 drop Q6HRS OU Last administered on 04/12/19at 00:27; Start 04/10/19 at 18:00; Stop 04/12/19 at 05:17; Status DC Artificial Tears (Artificial Tears) 1 drop PRN Q15MIN PRN OU DRY EYE; Start 04/10/19 at 17:00 Heparin Sodium (Porcine) (Heparin Sodium) 5,000 unit BID SQ ; Start 04/10/19 at 21:00; Status Cancel Pantoprazole Sodium (PROTONIX VIAL for IV PUSH) 40 mg DAILY IVP Last a dministered on 04/13/19at 08:34; Start 04/10/19 at 18:00 Fentanyl Citrate 30 ml @ 0 mls/hr CONT PRN IV PER PROTOCOL. Last administered on 04/13/19at 04:38; Start 04/10/19 at 17:00 Propofol 100 ml @ 0 mls/hr CONT PRN IV PER PROTOCOL. Last administered on at 23:59; Start 04/10/19 at 17:00 Midazolam HCl 50 mg/Sodium Chloride 50 ml @ 0 mls/hr CONT PRN IV PER PROTOCOL. Last administered on 04/12/19at 00:27; Start 04/10/19 at 17:00 Vecuronium [place] (Norcuron Bolus) 7 mg PRN Q1HR PRN IV SHIVERING Last ad ministered on 04/11/19at 15:48; Start 04/10/19 at 17:00 Heparin Sodium/ Dextrose 250 ml @ 0 mls/hr CONT PRN IV PER PROTOCOL; Start 04/10/19 at 17:30; Stop 04/10/19 at 23:42; Status DC Heparin Sodium (Porcine) (Heparin Sodium) 2,150 unit PRN Q6HRS PRN IV FOR UFH LEVEL LESS THAN 0.2; Start 04/10/19 at 17:30; Stop 04/10/19 at 23:39; Status DC Heparin Sodium (Porcine) (Heparin Sodium) 1,050 unit PRN Q6HRS PRN IV FOR UFH LEVEL 0.2 - 0.29; Start 04/10/19 at 17:30; Stop 04/10/19 at 23:39; Status DC Hydralazine HCl (Apresoline Inj) 10 mg PRN Q6HRS PRN IVP ELEVATED BP, SEE COMMENTS; Start 04/10/19 at 18:00 Hydralazine HCl (Apresoline Inj) 20 mg STK-MED ONCE .ROUTE ; Start 04/10/19 at 17:56; Stop 04/10/19 at 17:56; Status DC Iohexol (Omnipaque 350 Mg/ml) 75 ml 1X ONCE IV Last administered on 04/10/19at 18:45; Start 04/10/19 at 18:45; Stop 04/10/19 at 18:46; Status DC Insulin Human Regular 100 unit/ Sodium Chloride 101 ml @ 0 mls/hr CONT PRN IV SEE I/O RECORD Last administered on 04/11/19at 10:23; Start 04/10/19 at 19:30; Stop 04/12/19 at 03:15; Status DC Magnesium Sulfate/ Dextrose 100 ml @ 100 mls/hr PRN DAILY PRN IV MAG level 2.4-3.0mg/dl Last administered on 04/11/19at 08:44; Start 04/10/19 at 20:30 Potassium Chloride/Water 100 ml @ 100 mls/hr PRN DAILY PRN IV K+ level 3.1- 3.4mEq/L Last administered on 04/11/19at 06:50; Start 04/10/19 at 20:30 Magnesium Sulfate/ Dextrose 100 ml @ 100 mls/hr 1X PRN IV MAG level 2.4- 3.0mg/dl Last administered on 04/10/19at 22:17; Start 04/10/19 at 22:00; Stop 04/11/19 at 01:56; Status DC Potassium Chloride/Water 100 ml @ 100 mls/hr 1X PRN IV K+ level 3.1-3.4mEq/L Last administered on 04/10/19at 22:16; Start 04/10/19 at 22:00; Stop 04/11/19 at 01:55; Status DC Norepinephrine Bitartrate 8 mg/ Dextrose 258 ml @ 13.855 mls/ hr CONT PRN IV PER PROTOCOL Last administered on 04/10/19at 22:43; Start 04/10/19 at 22:45 Heparin Sodium/ Dextrose 250 ml @ 0 mls/hr CONT PRN IV PER PROTOCOL Last administered on 04/11/19at 00:43; Start 04/10/19 at 23:45; Stop 04/11/19 at 09:36; Status DC Heparin Sodium (Porcine) (Heparin Sodium) 1,800 unit PRN Q6HRS PRN IV FOR UFH LEVEL LESS THAN 0.2; Start 04/10/19 at 23:45; Stop 04/11/19 at 09:54; Status DC Amiodarone HCl 450 mg/Dextrose 259 ml @ 0 mls/hr CONT PRN IV SEE I/O RECORD Last administered on 04/12/19at 11:52; Start 04/11/19 at 00:00; Stop 04/11/19 at 19:36; Status DC Dextrose/Sodium Chloride 1,000 ml @ 75 mls/hr [id number] IV Last administered on 04/11/19at 01:57; Start 04/11/19 at 01:00; Stop 04/11/19 at 10:53; Status DC Potassium Chloride/Water 100 ml @ 50 mls/hr PRN DAILY PRN IV K+ level less than 3.1 mEq/l; Start 04/11/19 at 02:00; Status Cancel Potassium Chloride/Water 100 ml @ 100 mls/hr PRN Q1HR PRN IV K<3.1; Start 04/11/19 at 02:00 Magnesium Sulfate/ Dextrose 100 ml @ 100 mls/hr PRN DAILY PRN IV MAG level 2.4-3.0mg/dl; Start 04/11/19 at 06:45; Status UNV Potassium Chloride/Water 100 ml @ 100 mls/hr PRN DAILY PRN IV K+ level 3.1- 3.4mEq/L; Start 04/11/19 at 06:45; Status UNV Atropine Sulfate (ATROPINE 0.5mg SYRINGE) 0.25 mg 1X ONCE IM ; Start 04/11/19 at 09:45; Stop 04/11/19 at 09:38; Status DC Atropine Sulfate (ATROPINE 1mg SYRINGE) 0.25 mg 1X ONCE IM Last administered on 04/11/19at 09:55; Start 04/11/19 at 09:45; Stop 04/11/19 at 09:46; Status DC Dopamine HCl/ Dextrose 250 ml @ 6.676 mls/ hr CONT PRN IV SEE I/O RECORD Last administered on 04/12/19at 20:21; Start 04/11/19 at 10:00 Sodium Chloride 1,000 ml @ 75 mls/hr [id number] IV Last administered on 04/11/19at 19:36; Start 04/11/19 at 12:00 Heparin Sodium (Porcine) (Heparin Sodium) 5,000 unit BID SQ Last administered on 04/13/19at 08:35; Start 04/11/19 at 21:00 Atropine Sulfate (ATROPINE 1mg SYRINGE) 1 mg STK-MED ONCE .ROUTE ; Start 04/10/19 at 15:16; Stop 04/11/19 at 15:16; Status DC Amiodarone HCl 450 mg/Dextrose 259 ml @ 33 mls/hr CONT PRN PRN IV SEE I/O RECORD Last administered on 04/13/19at 04:37; Start 04/12/19 at 08:15 Acetaminophen (Tylenol) 650 mg PRN Q6HRS PRN PEG MILD PAIN / TEMP Last administered on 04/13/19at 00:02; Start 04/12/19 at 11:30 Dexmedetomidine HCl 400 mcg/ Sodium Chloride 100 ml @ 0 mls/hr CONT PRN IV ANXIETY / AGITATION Last administered on 04/13/19at 08:22; Start 04/13/19 at 08:00 Piperacillin Sod/ Tazobactam Sod 4.5 gm/Sodium Chloride 100 ml @ 200 mls/hr Q6HRS IV Last administered on 04/13/19at 09:20; Start 04/13/19 at 09:00 Active Scripts Active Reported Celebrex (Celecoxib) 100 Mg Capsule 1 Cap PO BID Verapamil Er (Verapamil Hcl) 240 Mg Cap24h.pel 1 Cap PO DAILY Vitals/I & O Vital Sign - Last 24 Hours 04/12/19 04/12/19 04/12/19 04/12/19 12:00 12:00 13:00 13:33 Temp 100.4 100.4 Pulse 60 58 Resp 20 20 B/P (MAP) 98/44 (62) 99/44 (62) Pulse Ox 100 100 100 O2 Delivery Ventilator Mechanical Ventilator Ventilator Ventilator 04/12/19 04/12/19 04/12/19 04/12/19 14:00 15:00 15:23 16:00 Pulse 52 58 Resp 20 20 B/P (MAP) 97/39 (58) 85/40 (55) Pulse Ox 100 100 100 O2 Delivery Ventilator Ventilator Ventilator Mechanical Ventilator 04/12/19 04/12/19 04/12/19 04/12/19 16:00 17:00 17:07 18:00 Temp 99.7 99.7 Pulse 57 58 56 Resp 20 20 20 B/P (MAP) 107/46 (66) 102/42 (62) 106/44 (64) Pulse Ox 100 100 100 100 O2 Delivery Ventilator Ventilator Ventilator Ventilator 04/12/19 04/12/19 04/12/19 04/12/19 19:00 19:49 20:00 20:00 Temp 100.4 100.4 Pulse 57 62 Resp 20 20 B/P (MAP) 91/38 (55) 106/46 (66) Pulse Ox 100 100 100 O2 Delivery Ventilator Ventilator Mechanical Ventilator Ventilator 04/12/19 04/12/19 04/12/19 04/13/19 21:00 22:00 23:00 00:00 Temp 101.5 101.5 Pulse 65 63 61 69 Resp 20 20 20 20 B/P (MAP) 112/44 (66) 98/38 (58) 103/44 (63) 119/46 (70) Pulse Ox 100 100 100 100 O2 Delivery Ventilator Ventilator Ventilator Ventilator 04/13/19 04/13/19 04/13/19 04/13/19 00:00 00:06 01:00 02:00 Pulse 65 65 Resp 20 20 B/P (MAP) 89/31 (50) 95/35 (55) Pulse Ox 100 100 100 O2 Delivery Mechanical Ventilator Ventilator Ventilator Ventilator 04/13/19 04/13/19 04/13/19 04/13/19 02:15 03:00 04:00 04:00 Temp 100.8 100.8 Pulse 71 82 Resp 20 20 B/P (MAP) 105/43 (63) 123/49 (73) Pulse Ox 100 100 100 O2 Delivery Ventilator Ventilator Ventilator Mechanical Ventilator 04/13/19 04/13/19 04/13/19 04/13/19 04:17 05:00 05:57 06:00 Pulse 62 82 Resp 20 20 B/P (MAP) 96/37 (56) 136/50 (78) Pulse Ox 100 100 100 100 O2 Delivery Ventilator Ventilator Ventilator Ventilator 04/13/19 04/13/19 04/13/19 04/13/19 07:00 07:44 08:00 08:00 Temp 100.8 99.8 100.8 99.8 Pulse 66 70 Resp 20 20 B/P (MAP) 100/38 (58) 100/34 (56) Pulse Ox 100 100 100 O2 Delivery Ventilator Ventilator Ventilator Mechanical Ventilator 04/13/19 04/13/19 04/13/19 09:00 10:00 10:26 Pulse 62 58 Resp 20 20 B/P (MAP) 114/38 (63) 108/36 (60) Pulse Ox 100 100 100 O2 Delivery Ventilator Ventilator Ventilator Intake and Output 04/12/19 04/12/19 04/13/19 15:00 23:00 07:00 Intake Total 278 ml Output Total 365 ml 660 ml 960 ml Balance -365 ml -382 ml -960 ml ANNIE BRYANT MD Apr 13, 2019 11:40
[2019-04-13] MEDS: NOREPINEPHRINE VIAL 8 MG in IV DEXTROSE 5% 250 ML IV PRN (13:22)
[2019-04-13] MEDS: PROPOFOL 100 ML IV PRN ×2 (14:56→23:00)
[2019-04-13] MEDS ORDERED: IV 1/2 NORMAL SALINE 1,000 ML IV SCH (15:30)
[2019-04-13] MEDS: IV NORMAL SALINE 1000ML BAG 1,000 ML IV SCH (15:45)
[2019-04-13 18:18] LABS: BASE EXCESS ABG -4 mmol/L (-3-3); HCO3 ABG 19 mmol/L (21-28); PCO2 ABG 29 mmHg (35-46); PO2 ABG 170 mmHg (65-108); SAT O2 ABG 98 % (92-99)
[2019-04-13 18:21] LABS: FIO2 ABG 40
[2019-04-14] VITALS (24 sets, daily range): BP systolic 119–166; BP diastolic 52–90
[2019-04-14] MEDS: PROPOFOL 100 ML IV PRN (04:56)
[2019-04-14] MEDS: IV NORMAL SALINE 1000ML BAG 1,000 ML IV SCH (05:05)
--- NOTE | 2019-04-14 05:37 | RAD ---
AP chest. HISTORY: Intubated AP view was taken of the chest. Central line and NG tube are unchanged. Endotracheal tube is unchanged. There is slight haziness in the left lung base without other infiltrates. There's been no change compared to one day ago. IMPRESSION: 1. No change from the prior study. Electronically signed by: Selvin Jorge MD (04/14/2019 5:34 AM) [id number]
[2019-04-14] MEDS: PIPERACILLIN/TAZOBACTAM 4.5 GM in IV NORMAL SALINE 100ML 100 ML IV SCH ×5 (06:12→17:33)
[2019-04-14 06:43] LABS: CREATININE 0.6 mg/dL (0.6-1.0); PHOSPHORUS 2.1 mg/dL (2.6-4.7); POTASSIUM 3.6 mmol/L (3.5-5.1)
[2019-04-14 07:06] LABS: BASO % 0 % (0-3); EOS # 0.1 x10^3/uL (0.0-0.7); EOS % 1 % (0-3); HEMATOCRIT 26.2 % (36.0-47.0); HEMOGLOBIN 8.8 g/dL (12.0-15.5); LYMPH % 8 % (24-48); MEAN CORPUSCULAR HEMOGLOBIN 29 pg (25-35); MEAN CORPUSCULAR HGB CONC 34 g/dL (31-37); MEAN CORPUSCULAR VOLUME 88 fL (79-100); MONO # 0.7 x10^3/uL (0.0-1.1); MONO % 6 % (0-9); NEUT # 10.5 x10^3/uL (1.8-7.7); NEUT % 86 % (31-73); PLATELET COUNT 135 x10^3/uL (140-400); RED BLOOD COUNT 2.98 x10^6/uL (3.50-5.40); RED CELL DISTRIBUTION WIDTH 13.6 % (11.5-14.5); WHITE BLOOD COUNT 12.2 x10^3/uL (4.0-11.0)
[2019-04-14 08:24] LABS: BASE EXCESS ABG -5 mmol/L (-3-3); HCO3 ABG 19 mmol/L (21-28); PCO2 ABG 30 mmHg (35-46); PO2 ABG 159 mmHg (65-108); SAT O2 ABG 98 % (92-99)
[2019-04-14 08:58] LABS: BASE EXCESS ABG -5 mmol/L (-3-3); HCO3 ABG 18 mmol/L (21-28); PCO2 ABG 26 mmHg (35-46); PO2 ABG 162 mmHg (65-108); SAT O2 ABG 98 % (92-99)
--- NOTE | 2019-04-14 09:19 | PDOC ---
PULMONARY PROGRESS NOTES Subjective Doing well on CPAP trial today awake and following commands, restless Vitals Vital Signs Date Time Temp Pulse Resp B/P (MAP) Pulse Ox O2 Delivery O2 Flow Rate FiO2 04/14/19 08:16 100 Ventilator 04/14/19 06:00 55 18 149/57 (87) 04/14/19 04:00 99.0 99.0 General: Alert, No acute distress HEENT: Other (nc at perrl orally intubated nose clear neck no lad no thyromegaly) Lungs: Clear Cardiovascular: S1, S2 Abdomen: Soft, Non-tender Neuro Exam: Alert Extremities: No Edema Skin: Warm, Diaphoretic Labs Laboratory Tests Test 04/13/19 06:00 04/13/19 07:45 04/13/19 18:10 04/14/19 05:40 White Blood Count 10.2 x10^3/uL (4.0-11.0) 12.2 x10^3/uL (4.0-11.0) Red Blood Count 3.12 x10^6/uL (3.50-5.40) 2.98 x10^6/uL (3.50-5.40) Hemoglobin 9.3 g/dL (12.0-15.5) 8.8 g/dL (12.0-15.5) Hematocrit 27.3 % (36.0-47.0) 26.2 % (36.0-47.0) Mean Corpuscular Volume 88 fL (79-100) 88 fL (79-100) Mean Corpuscular Hemoglobin 30 pg (25-35) 29 pg (25-35) Mean Corpuscular Hemoglobin Concent 34 g/dL (31-37) 34 g/dL (31-37) Red Cell Distribution Width 13.1 % (11.5-14.5) 13.6 % (11.5-14.5) Platelet Count 133 x10^3/uL (140-400) 135 x10^3/uL (140-400) Sodium Level 137 mmol/L (136-145) 140 mmol/L (136-145) Potassium Level 3.9 mmol/L (3.5-5.1) 3.6 mmol/L (3.5-5.1) Chloride Level 109 mmol/L (98-107) 109 mmol/L (98-107) Carbon Dioxide Level 18 mmol/L (21-32) 22 mmol/L (21-32) Anion Gap 10 (6-14) 9 (6-14) Blood Urea Nitrogen 20 mg/dL (7-20) 12 mg/dL (7-20) Creatinine 0.9 mg/dL (0.6-1.0) 0.6 mg/dL (0.6-1.0) Estimated GFR (Cockcroft-Gault) 63.9 102.0 Glucose Level 97 mg/dL (70-99) 92 mg/dL (70-99) Calcium Level 7.9 mg/dL (8.5-10.1) 8.0 mg/dL (8.5-10.1) O2 Saturation 98 % (92-99) 98 % (92-99) Arterial Blood pH 7.44 (7.35-7.45) 7.45 (7.35-7.45) Arterial Blood pCO2 at Patient Temp 26 mmHg (35-46) 29 mmHg (35-46) Arterial Blood pO2 at Patient Temp 126 mmHg (65-108) 170 mmHg (65-108) Arterial Blood HCO3 17 mmol/L (21-28) 19 mmol/L (21-28) Arterial Blood Base Excess -6 mmol/L (-3-3) -4 mmol/L (-3-3) FiO2 40 40 Neutrophils (%) (Auto) 86 % (31-73) Lymphocytes (%) (Auto) 8 % (24-48) Monocytes (%) (Auto) 6 % (0-9) Eosinophils (%) (Auto) 1 % (0-3) Basophils (%) (Auto) 0 % (0-3) Neutrophils # (Auto) 10.5 x10^3/uL (1.8-7.7) Lymphocytes # (Auto) 1.0 x10^3/uL (1.0-4.8) Monocytes # (Auto) 0.7 x10^3/uL (0.0-1.1) Eosinophils # (Auto) 0.1 x10^3/uL (0.0-0.7) Basophils # (Auto) 0.0 x10^3/uL (0.0-0.2) Phosphorus Level 2.1 mg/dL (2.6-4.7) Magnesium Level 2.0 mg/dL (1.8-2.4) Laboratory Tests Test 04/13/19 18:10 04/14/19 05:40 O2 Saturation 98 % (92-99) Arterial Blood pH 7.45 (7.35-7.45) Arterial Blood pCO2 at Patient Temp 29 mmHg (35-46) Arterial Blood pO2 at Patient Temp 170 mmHg (65-108) Arterial Blood HCO3 19 mmol/L (21-28) Arterial Blood Base Excess -4 mmol/L (-3-3) FiO2 40 White Blood Count 12.2 x10^3/uL (4.0-11.0) Red Blood Count 2.98 x10^6/uL (3.50-5.40) Hemoglobin 8.8 g/dL (12.0-15.5) Hematocrit 26.2 % (36.0-47.0) Mean Corpuscular Volume 88 fL (79-100) Mean Corpuscular Hemoglobin 29 pg (25-35) Mean Corpuscular Hemoglobin Concent 34 g/dL (31-37) Red Cell Distribution Width 13.6 % (11.5-14.5) Platelet Count 135 x10^3/uL (140-400) Neutrophils (%) (Auto) 86 % (31-73) Lymphocytes (%) (Auto) 8 % (24-48) Monocytes (%) (Auto) 6 % (0-9) Eosinophils (%) (Auto) 1 % (0-3) Basophils (%) (Auto) 0 % (0-3) Neutrophils # (Auto) 10.5 x10^3/uL (1.8-7.7) Lymphocytes # (Auto) 1.0 x10^3/uL (1.0-4.8) Monocytes # (Auto) 0.7 x10^3/uL (0.0-1.1) Eosinophils # (Auto) 0.1 x10^3/uL (0.0-0.7) Basophils # (Auto) 0.0 x10^3/uL (0.0-0.2) Sodium Level 140 mmol/L (136-145) Potassium Level 3.6 mmol/L (3.5-5.1) Chloride Level 109 mmol/L (98-107) Carbon Dioxide Level 22 mmol/L (21-32) Anion Gap 9 (6-14) Blood Urea Nitrogen 12 mg/dL (7-20) Creatinine 0.6 mg/dL (0.6-1.0) Estimated GFR (Cockcroft-Gault) 102.0 Glucose Level 92 mg/dL (70-99) Calcium Level 8.0 mg/dL (8.5-10.1) Phosphorus Level 2.1 mg/dL (2.6-4.7) Magnesium Level 2.0 mg/dL (1.8-2.4) Medications Active Scripts Medications Dose Route/Sig Max Daily Dose Days Date Category Celebrex (Celecoxib) 100 Mg Capsule 1 Cap PO BID 04/11/19 Reported Verapamil Er (Verapamil Hcl) 240 Mg Cap24h.pel 1 Cap PO DAILY 04/11/19 Reported Comments cxr reviewed 04/14 no sig infiltrate CTA CHEST IMPRESSION: 1. No pulmonary embolus identified within the main, lobar or segmental pulmonary arteries. 2. Layering consolidative changes in the lungs bilaterally greater on the left favored to represent pulmonary edema. Superimposed infectious process is difficult to exclude. FINDINGS 1. Hemodynamics: Left ventricular end-diastolic pressure 5 mmHg. No pullback gradient across the aortic valve. 2. Left ventriculography: Normal left ventricle systolic function with ejection fraction estimated at 55%. No significant mitral regurgitation seen. 3. Coronary angiography: a. The left main coronary artery arose from the left sinus of Valsalva, gave rise to the left anterior descending and left circumflex arteries and did not show any significant stenosis. b. The left anterior descending artery showed 30% stenosis in the midsegment. The diagonal branch showed 50% stenosis in the proximal segment. c. The left circumflex artery did not show any significant stenosis. d. The right coronary artery was a large and dominant vessel arising from the right sinus of Valsalva that showed 50% stenosis in the midsegment. This was physiologically insignificant based on IFR measurement of 1.0. Conclusion 1. Nonobstructive coronary artery disease. 50% stenosis involving dominant right coronary artery that was physiologically not significant based on IFR measurement. The diagonal branch which is a small to medium caliber vessel also showed 50% proximal segment stenosis. 2. Normal left ventricle systolic function with ejection fraction estimated at 55%. Recommendations Consider AICD implantation for secondary prevention of sudden cardiac if workup for pulmonary embolism as negative Impression . IMPRESSION: 1. [id number] cardiopulmonary arrest, etiology unclear. 2. Status post emergent cardiac catheterization revealing normal ejection fraction, nonobstructive coronary artery disease, 50% stenosis involving the dominant right coronary artery. Normal left ventricular ejection fraction estimated at 55%. 3. Hypertension. 4. Recent acute bronchitis. 5. Abnormal ct chest with bilateral infiltrates Plan . Doing well on CPAP trial ABG adequate MS improving will proceed with extubation NEGATIVE CTA OF CHEST for PE WILL CONTINUE SUPPORT LASIX, monitor k, cr EMPIRIC ANTIBX s/p HYPOTHERMIC PROTOCOL amio/dopamine per cardiology discussed w rn / family/ RT cct 30 min ABDOULAYE CAT MD Apr 14, 2019 09:19
[2019-04-14] MEDS: PANTOPRAZOLE IV PUSH 40 MG VIAL. IVP SCH (09:33)
[2019-04-14] MEDS: HEPARIN for SUB-Q USE 5,000 UNIT/ML VIAL. SQ SCH ×2 (09:34→21:19)
[2019-04-14 09:48] LABS: FIO2 ABG 40
[2019-04-14 09:49] LABS: FIO2 ABG 40
--- NOTE | 2019-04-14 09:52 | PDOC ---
PROGRESS NOTES Chief Complaint Chief Complaint Status post cardiac arrest Status post cardiac cath with no flow limiting lesions evident Arrhythmia History of essential hypertension History of dyslipidemia bracycardia most likely due to amiodarone Leukocytosis reactive most likely but will cover with ATB for possible aspiration pneumonia Plan: supportive measures Monitor over the next 24 hours Zosyn Continue following cardiology recommendations regarding meds History of Present Illness History of Present Illness Patient extubated today, he was to be quite agitated following simple commands but requiring Precedex due to her agitation. Neurologically the patient is not exhibiting cranial nerve dysfunction she moves all extremities, good strength. Friend at bedside trying to help nursing staff orienting patient Vitals Vitals Vital Signs Date Time Temp Pulse Resp B/P (MAP) Pulse Ox O2 Delivery O2 Flow Rate FiO2 04/14/19 08:16 100 Ventilator 04/14/19 06:00 55 18 149/57 (87) 04/14/19 04:00 99.0 99.0 Physical Exam General: Other (remains intubated) Heart: Regular rate Lungs: Clear Abdomen: Normal bowel sounds Extremities: No cyanosis, No edema Skin: No significant lesion Labs LABS Laboratory Tests Test 04/13/19 18:10 04/14/19 05:40 04/14/19 08:15 04/14/19 08:50 O2 Saturation 98 % (92-99) 98 % (92-99) 98 % (92-99) Arterial Blood pH 7.45 (7.35-7.45) 7.42 (7.35-7.45) 7.45 (7.35-7.45) Arterial Blood pCO2 at Patient Temp 29 mmHg (35-46) 30 mmHg (35-46) 26 mmHg (35-46) Arterial Blood pO2 at Patient Temp 170 mmHg (65-108) 159 mmHg (65-108) 162 mmHg (65-108) Arterial Blood HCO3 19 mmol/L (21-28) 19 mmol/L (21-28) 18 mmol/L (21-28) Arterial Blood Base Excess -4 mmol/L (-3-3) -5 mmol/L (-3-3) -5 mmol/L (-3-3) FiO2 40 40 40 White Blood Count 12.2 x10^3/uL (4.0-11.0) Red Blood Count 2.98 x10^6/uL (3.50-5.40) Hemoglobin 8.8 g/dL (12.0-15.5) Hematocrit 26.2 % (36.0-47.0) Mean Corpuscular Volume 88 fL (79-100) Mean Corpuscular Hemoglobin 29 pg (25-35) Mean Corpuscular Hemoglobin Concent 34 g/dL (31-37) Red Cell Distribution Width 13.6 % (11.5-14.5) Platelet Count 135 x10^3/uL (140-400) Neutrophils (%) (Auto) 86 % (31-73) Lymphocytes (%) (Auto) 8 % (24-48) Monocytes (%) (Auto) 6 % (0-9) Eosinophils (%) (Auto) 1 % (0-3) Basophils (%) (Auto) 0 % (0-3) Neutrophils # (Auto) 10.5 x10^3/uL (1.8-7.7) Lymphocytes # (Auto) 1.0 x10^3/uL (1.0-4.8) Monocytes # (Auto) 0.7 x10^3/uL (0.0-1.1) Eosinophils # (Auto) 0.1 x10^3/uL (0.0-0.7) Basophils # (Auto) 0.0 x10^3/uL (0.0-0.2) Sodium Level 140 mmol/L (136-145) Potassium Level 3.6 mmol/L (3.5-5.1) Chloride Level 109 mmol/L (98-107) Carbon Dioxide Level 22 mmol/L (21-32) Anion Gap 9 (6-14) Blood Urea Nitrogen 12 mg/dL (7-20) Creatinine 0.6 mg/dL (0.6-1.0) Estimated GFR (Cockcroft-Gault) 102.0 Glucose Level 92 mg/dL (70-99) Calcium Level 8.0 mg/dL (8.5-10.1) Phosphorus Level 2.1 mg/dL (2.6-4.7) Magnesium Level 2.0 mg/dL (1.8-2.4) Assessment and Plan Assessmemt and Plan Problems Medical Problems: (1) Acute respiratory acidosis Status: Acute (2) Cardiorespiratory arrest Status: Acute (3) Elevated d-dimer Status: Acute (4) Elevated troponin Status: Acute (5) Hyperglycemia Status: Acute (6) Hypokalemia Status: Acute (7) NSTEMI (non-ST elevated myocardial infarction) Status: Acute (8) Pneumonia Status: Acute (9) Sepsis Status: Acute (10) Severe sepsis Status: Acute Comment Review of Relevant I have reviewed the following items fracisco (where applicable) has been applied. Labs Laboratory Tests Test 04/13/19 06:00 04/13/19 07:45 04/13/19 18:10 04/14/19 05:40 White Blood Count 10.2 x10^3/uL (4.0-11.0) 12.2 x10^3/uL (4.0-11.0) Red Blood Count 3.12 x10^6/uL (3.50-5.40) 2.98 x10^6/uL (3.50-5.40) Hemoglobin 9.3 g/dL (12.0-15.5) 8.8 g/dL (12.0-15.5) Hematocrit 27.3 % (36.0-47.0) 26.2 % (36.0-47.0) Mean Corpuscular Volume 88 fL (79-100) 88 fL (79-100) Mean Corpuscular Hemoglobin 30 pg (25-35) 29 pg (25-35) Mean Corpuscular Hemoglobin Concent 34 g/dL (31-37) 34 g/dL (31-37) Red Cell Distribution Width 13.1 % (11.5-14.5) 13.6 % (11.5-14.5) Platelet Count 133 x10^3/uL (140-400) 135 x10^3/uL (140-400) Sodium Level 137 mmol/L (136-145) 140 mmol/L (136-145) Potassium Level 3.9 mmol/L (3.5-5.1) 3.6 mmol/L (3.5-5.1) Chloride Level 109 mmol/L (98-107) 109 mmol/L (98-107) Carbon Dioxide Level 18 mmol/L (21-32) 22 mmol/L (21-32) Anion Gap 10 (6-14) 9 (6-14) Blood Urea Nitrogen 20 mg/dL (7-20) 12 mg/dL (7-20) Creatinine 0.9 mg/dL (0.6-1.0) 0.6 mg/dL (0.6-1.0) Estimated GFR (Cockcroft-Gault) 63.9 102.0 Glucose Level 97 mg/dL (70-99) 92 mg/dL (70-99) Calcium Level 7.9 mg/dL (8.5-10.1) 8.0 mg/dL (8.5-10.1) O2 Saturation 98 % (92-99) 98 % (92-99) Arterial Blood pH 7.44 (7.35-7.45) 7.45 (7.35-7.45) Arterial Blood pCO2 at Patient Temp 26 mmHg (35-46) 29 mmHg (35-46) Arterial Blood pO2 at Patient Temp 126 mmHg (65-108) 170 mmHg (65-108) Arterial Blood HCO3 17 mmol/L (21-28) 19 mmol/L (21-28) Arterial Blood Base Excess -6 mmol/L (-3-3) -4 mmol/L (-3-3) FiO2 40 40 Neutrophils (%) (Auto) 86 % (31-73) Lymphocytes (%) (Auto) 8 % (24-48) Monocytes (%) (Auto) 6 % (0-9) Eosinophils (%) (Auto) 1 % (0-3) Basophils (%) (Auto) 0 % (0-3) Neutrophils # (Auto) 10.5 x10^3/uL (1.8-7.7) Lymphocytes # (Auto) 1.0 x10^3/uL (1.0-4.8) Monocytes # (Auto) 0.7 x10^3/uL (0.0-1.1) Eosinophils # (Auto) 0.1 x10^3/uL (0.0-0.7) Basophils # (Auto) 0.0 x10^3/uL (0.0-0.2) Phosphorus Level 2.1 mg/dL (2.6-4.7) Magnesium Level 2.0 mg/dL (1.8-2.4) Test 04/14/19 08:15 04/14/19 08:50 O2 Saturation 98 % (92-99) 98 % (92-99) Arterial Blood pH 7.42 (7.35-7.45) 7.45 (7.35-7.45) Arterial Blood pCO2 at Patient Temp 30 mmHg (35-46) 26 mmHg (35-46) Arterial Blood pO2 at Patient Temp 159 mmHg (65-108) 162 mmHg (65-108) Arterial Blood HCO3 19 mmol/L (21-28) 18 mmol/L (21-28) Arterial Blood Base Excess -5 mmol/L (-3-3) -5 mmol/L (-3-3) FiO2 40 40 Laboratory Tests Test 04/13/19 18:10 04/14/19 05:40 04/14/19 08:15 04/14/19 08:50 O2 Saturation 98 % (92-99) 98 % (92-99) 98 % (92-99) Arterial Blood pH 7.45 (7.35-7.45) 7.42 (7.35-7.45) 7.45 (7.35-7.45) Arterial Blood pCO2 at Patient Temp 29 mmHg (35-46) 30 mmHg (35-46) 26 mmHg (35-46) Arterial Blood pO2 at Patient Temp 170 mmHg (65-108) 159 mmHg (65-108) 162 mmHg (65-108) Arterial Blood HCO3 19 mmol/L (21-28) 19 mmol/L (21-28) 18 mmol/L (21-28) Arterial Blood Base Excess -4 mmol/L (-3-3) -5 mmol/L (-3-3) -5 mmol/L (-3-3) FiO2 40 40 40 White Blood Count 12.2 x10^3/uL (4.0-11.0) Red Blood Count 2.98 x10^6/uL (3.50-5.40) Hemoglobin 8.8 g/dL (12.0-15.5) Hematocrit 26.2 % (36.0-47.0) Mean Corpuscular Volume 88 fL (79-100) Mean Corpuscular Hemoglobin 29 pg (25-35) Mean Corpuscular Hemoglobin Concent 34 g/dL (31-37) Red Cell Distribution Width 13.6 % (11.5-14.5) Platelet Count 135 x10^3/uL (140-400) Neutrophils (%) (Auto) 86 % (31-73) Lymphocytes (%) (Auto) 8 % (24-48) Monocytes (%) (Auto) 6 % (0-9) Eosinophils (%) (Auto) 1 % (0-3) Basophils (%) (Auto) 0 % (0-3) Neutrophils # (Auto) 10.5 x10^3/uL (1.8-7.7) Lymphocytes # (Auto) 1.0 x10^3/uL (1.0-4.8) Monocytes # (Auto) 0.7 x10^3/uL (0.0-1.1) Eosinophils # (Auto) 0.1 x10^3/uL (0.0-0.7) Basophils # (Auto) 0.0 x10^3/uL (0.0-0.2) Sodium Level 140 mmol/L (136-145) Potassium Level 3.6 mmol/L (3.5-5.1) Chloride Level 109 mmol/L (98-107) Carbon Dioxide Level 22 mmol/L (21-32) Anion Gap 9 (6-14) Blood Urea Nitrogen 12 mg/dL (7-20) Creatinine 0.6 mg/dL (0.6-1.0) Estimated GFR (Cockcroft-Gault) 102.0 Glucose Level 92 mg/dL (70-99) Calcium Level 8.0 mg/dL (8.5-10.1) Phosphorus Level 2.1 mg/dL (2.6-4.7) Magnesium Level 2.0 mg/dL (1.8-2.4) Microbiology 04/10/19 Blood Culture - Preliminary, Resulted NO GROWTH AFTER 3 DAYS Medications Current Medications Norepinephrine Bitartrate 8 mg/ Dextrose 258 ml @ 13.855 mls/ hr 1X ONCE IV Last administered on 04/10/19at 12:40; Start 04/10/19 at 12:30; Stop 04/10/19 at 12:31; Status DC Amiodarone HCl 450 mg/Dextrose 259 ml @ 33 mls/hr 1X ONCE IV Last administered on 04/10/19at 12:55; Start 04/10/19 at 12:45; Stop 04/10/19 at 20:35; Status DC Sodium Chloride 1,000 ml @ 1,000 mls/hr Q1H IV Last administered on 04/10/19at 12:20; Start 04/10/19 at 12:13; Stop 04/10/19 at 13:12; Status DC Midazolam HCl 50 mg/Sodium Chloride 50 ml @ 1 mls/hr 1X ONCE IV Last administered on 04/10/19at 13:35; Start 04/10/19 at 13:15; Stop 04/11/19 at 13:55; Status DC Potassium Chloride/Water 100 ml @ 50 mls/hr 1X ONCE IV ; Start 04/10/19 at 13:15; Stop 04/10/19 at 13:16; Status DC Etomidate (Amidate) 20 mg STK-MED ONCE IV ; Start 04/10/19 at 13:14; Stop 04/10/19 at 13:14; Status DC Midazolam HCl (Versed) 5 mg STK-MED ONCE .ROUTE ; Start 04/10/19 at 13:15; Stop 04/10/19 at 13:15; Status DC Succinylcholine Chloride (Anectine) 200 mg STK-MED ONCE .ROUTE ; Start 04/10/19 at 13:15; Stop 04/10/19 at 13:15; Status DC Potassium Chloride/Water 100 ml @ 100 mls/hr Q1H IV ; Start 04/10/19 at 14:00; Stop 04/10/19 at 15:59; Status DC Sodium Bicarbonate (Sodium Bicarb Adult 8.4% Syr) 50 meq 1X ONCE IV Last administered on 04/10/19at 17:17; Start 04/10/19 at 13:30; Stop 04/10/19 at 13:31; Status DC Sodium Chloride 1,000 ml @ 150 mls/hr Q6H40M IV ; Start 04/10/19 at 13:28; Stop 04/11/19 at 00:46; Status DC Piperacillin Sod/ Tazobactam Sod 3.375 gm/Sodium Chloride 50 ml @ 100 mls/hr 1X ONCE IV Last administered on 04/10/19at 18:35; Start 04/10/19 at 13:45; Stop 04/10/19 at 14:14; Status DC Vancomycin HCl 250 ml @ 250 mls/hr 1X ONCE IV ; Start 04/10/19 at 13:45; Stop 04/10/19 at 14:44; Status UNV Sodium Chloride 1,000 ml @ 1,000 mls/hr 1X ONCE IV Last administered on 04/10/19at 13:45; Start 04/10/19 at 13:45; Stop 04/10/19 at 14:44; Status DC Vancomycin HCl 1.75 gm/Sodium Chloride 500 ml @ 250 mls/hr 1X ONCE IV ; Start 04/10/19 at 14:00; Stop 04/10/19 at 15:59; Status DC Iodixanol (Visipaque 320) 100 ml STK-MED ONCE .ROUTE ; Start 04/10/19 at 14:01; Stop 04/10/19 at 14:02; Status DC Heparin Sodium/ Sodium Chloride 500 ml @ As Directed STK-MED ONCE .ROUTE ; Start 04/10/19 at 14:02; Stop 04/10/19 at 14:02; Status DC Lidocaine HCl (Xylocaine-Mpf 1% 2ml Vial) 2 ml STK-MED ONCE .ROUTE ; Start 04/10/19 at 14:02; Stop 04/10/19 at 14:02; Status DC Lidocaine HCl (Lidocaine 1% 20ml Vial) 20 ml STK-MED ONCE .ROUTE ; Start 04/10/19 at 14:03; Stop 04/10/19 at 14:04; Status DC Heparin Sodium (Porcine) (Heparin Sodium) 10,000 unit STK-MED ONCE .ROUTE ; Start 04/10/19 at 15:16; Stop 04/10/19 at 15:16; Status DC Heparin Sodium/ Sodium Chloride (HEPARIN for ARTERIAL LINE FLUSH) 1,000 unit 1X ONCE IART Last administered on 04/10/19at 15:42; Start 04/10/19 at 15:30; Stop 04/10/19 at 23:39; Status DC Iodixanol (Visipaque 320) 104 ml 1X ONCE IART Last administered on 04/10/19at 15:42; Start 04/10/19 at 15:30; Stop 04/10/19 at 23:39; Status DC Heparin Sodium (Porcine) (Heparin Sodium) 4,000 unit 1X ONCE IV Last administered on 04/10/19at 15:42; Start 04/10/19 at 15:30; Stop 04/10/19 at 23:39; Status DC Lidocaine HCl (Lidocaine 1% 20ml Vial) 20 ml 1X ONCE INJ Last administered on 04/10/19at 15:42; Start 04/10/19 at 15:30; Stop 04/10/19 at 23:39; Status DC Atropine Sulfate (ATROPINE 1mg SYRINGE) 1 mg 1X ONCE IV Last administered on 04/10/19at 12:42; Start 04/10/19 at 12:42; Stop 04/10/19 at 15:42; Status DC Midazolam HCl (Versed) 5 mg 1X ONCE IV Last administered on 04/10/19at 13:15; Start 04/10/19 at 13:15; Stop 04/10/19 at 15:42; Status DC Vecuronium [place] (Norcuron Bolus) 10 mg STK-MED ONCE IV ; Start 04/10/19 at 16:54; Stop 04/10/19 at 16:55; Status DC Fentanyl Citrate (Fentanyl 2ml Vial) 100 mcg STK-MED ONCE .ROUTE ; Start 04/10/19 at 16:55; Stop 04/10/19 at 16:56; Status DC Fentanyl Citrate (Fentanyl 2ml Vial) 100 mcg 1X ONCE IV Last administered on 04/10/19at 17:16; Start 04/10/19 at 17:00; Stop 04/10/19 at 17:01; Status DC Midazolam HCl (Versed) 2 mg 1X ONCE IV ; Start 04/10/19 at 17:00; Stop 04/10/19 at 17:01; Status DC Magnesium Sulfate/ Dextrose 100 ml @ 100 mls/hr 1X ONCE IV Last administered on 04/10/19at 17:16; Start 04/10/19 at 18:00; Stop 04/10/19 at 18:59; Status DC Buspirone HCl (Buspar) 30 mg Q8HRS NG Last administered on 04/11/19at 21:13; Start 04/10/19 at 17:00; Stop 04/12/19 at 05:17; Status DC Acetaminophen (Tylenol) 650 mg Q4H NG Last administered on 04/12/19at 00:27; Start 04/10/19 at 17:00; Stop 04/12/19 at 03:15; Status DC Artificial Tears (Artificial Tears) 1 drop Q6HRS OU Last administered on 04/12/19at 00:27; Start 04/10/19 at 18:00; Stop 04/12/19 at 05:17; Status DC Artificial Tears (Artificial Tears) 1 drop PRN Q15MIN PRN OU DRY EYE; Start 04/10/19 at 17:00 Heparin Sodium (Porcine) (Heparin Sodium) 5,000 unit BID SQ ; Start 04/10/19 at 21:00; Status Cancel Pantoprazole Sodium (PROTONIX VIAL for IV PUSH) 40 mg DAILY IVP Last administered on 04/14/19at 09:33; Start 04/10/19 at 18:00 Fentanyl Citrate 30 ml @ 0 mls/hr CONT PRN IV PER PROTOCOL. Last administered on 04/13/19at 14:16; Start 04/10/19 at 17:00 Propofol 100 ml @ 0 mls/hr CONT PRN IV PER PROTOCOL. Last administered on 04/14/19at 04:56; Start 04/10/19 at 17:00 Midazolam HCl 50 mg/Sodium Chloride 50 ml @ 0 mls/hr CONT PRN IV PER PROTOCOL. Last administered on 04/12/19at 00:27; Start 04/10/19 at 17:00 Vecuronium [place] (Norcuron Bolus) 7 mg PRN Q1HR PRN IV SHIVERING Last administered on 04/11/19at 15:48; Start 04/10/19 at 17:00 Heparin Sodium/ Dextrose 250 ml @ 0 mls/hr CONT PRN IV PER PROTOCOL; Start 04/10/19 at 17:30; Stop 04/10/19 at 23:42; Status DC Heparin Sodium (Porcine) (Heparin Sodium) 2,150 unit PRN Q6HRS PRN IV FOR UFH LEVEL LESS THAN 0.2; Start 04/10/19 at 17:30; Stop 04/10/19 at 23:39; Status DC Heparin Sodium (Porcine) (Heparin Sodium) 1,050 unit PRN Q6HRS PRN IV FOR UFH LEVEL 0.2 - 0.29; Start 04/10/19 at 17:30; Stop 04/10/19 at 23:39; Status DC Hydralazine HCl (Apresoline Inj) 10 mg PRN Q6HRS PRN IVP ELEVATED BP, SEE COMMENTS; Start 04/10/19 at 18:00 Hydralazine HCl (Apresoline Inj) 20 mg STK-MED ONCE .ROUTE ; Start 04/10/19 at 17:56; Stop 04/10/19 at 17:56; Status DC Iohexol (Omnipaque 350 Mg/ml) 75 ml 1X ONCE IV Last administered on 04/10/19at 18:45; Start 04/10/19 at 18:45; Stop 04/10/19 at 18:46; Status DC Insulin Human Regular 100 unit/ Sodium Chloride 101 ml @ 0 mls/hr CONT PRN IV SEE I/O RECORD Last administered on 04/11/19at 10:23; Start 04/10/19 at 19:30; Stop 04/12/19 at 03:15; Status DC Magnesium Sulfate/ Dextrose 100 ml @ 100 mls/hr PRN DAILY PRN IV MAG level 2.4-3.0mg/dl Last administered on 04/11/19at 08:44; Start 04/10/19 at 20:30 Potassium Chloride/Water 100 ml @ 100 mls/hr PRN DAILY PRN IV K+ level 3.1- 3.4mEq/L Last administered on 04/11/19at 06:50; Start 04/10/19 at 20:30 Magnesium Sulfate/ Dextrose 100 ml @ 100 mls/hr 1X PRN IV MAG level 2.4- 3.0mg/dl Last administered on 04/10/19at 22:17; Start 04/10/19 at 22:00; Stop 04/11/19 at 01:56; Status DC Potassium Chloride/Water 100 ml @ 100 mls/hr 1X PRN IV K+ level 3.1-3.4mEq/L Last administered on 04/10/19at 22:16; Start 04/10/19 at 22:00; Stop 04/11/19 at 01:55; Status DC Norepinephrine Bitartrate 8 mg/ Dextrose 258 ml @ 13.855 mls/ hr CONT PRN IV PER PROTOCOL Last administered on 04/13/19at 13:22; Start 04/10/19 at 22:45 Heparin Sodium/ Dextrose 250 ml @ 0 mls/hr CONT PRN IV PER PROTOCOL Last administered on 04/11/19at 00:43; Start 04/10/19 at 23:45; Stop 04/11/19 at 09:36; Status DC Heparin Sodium (Porcine) (Heparin Sodium) 1,800 unit PRN Q6HRS PRN IV FOR UFH LEVEL LESS THAN 0.2; Start 04/10/19 at 23:45; Stop 04/11/19 at 09:54; Status DC Amiodarone HCl 450 mg/Dextrose 259 ml @ 0 mls/hr CONT PRN IV SEE I/O RECORD Last administered on 04/12/19at 11:52; Start 04/11/19 at 00:00; Stop 04/11/19 at 19:36; Status DC Dextrose/Sodium Chloride 1,000 ml @ 75 mls/hr [id number] IV Last administered on 04/11/19at 01:57; Start 04/11/19 at 01:00; Stop 04/11/19 at 10:53; Status DC Potassium Chloride/Water 100 ml @ 50 mls/hr PRN DAILY PRN IV K+ level less than 3.1 mEq/l; Start 04/11/19 at 02:00; Status Cancel Potassium Chloride/Water 100 ml @ 100 mls/hr PRN Q1HR PRN IV K<3.1; Start 04/11/19 at 02:00 Magnesium Sulfate/ Dextrose 100 ml @ 100 mls/hr PRN DAILY PRN IV MAG level 2.4-3.0mg/dl; Start 04/11/19 at 06:45; Status UNV Potassium Chloride/Water 100 ml @ 100 mls/hr PRN DAILY PRN IV K+ level 3.1- 3.4mEq/L; Start 04/11/19 at 06:45; Status UNV Atropine Sulfate (ATROPINE 0.5mg SYRINGE) 0.25 mg 1X ONCE IM ; Start 04/11/19 at 09:45; Stop 04/11/19 at 09:38; Status DC Atropine Sulfate (ATROPINE 1mg SYRINGE) 0.25 mg 1X ONCE IM Last administered on 04/11/19at 09:55; Start 04/11/19 at 09:45; Stop 04/11/19 at 09:46; Status DC Dopamine HCl/ Dextrose 250 ml @ 6.676 mls/ hr CONT PRN IV SEE I/O RECORD Last administered on 04/12/19at 20:21; Start 04/11/19 at 10:00 Sodium Chloride 1,000 ml @ 75 mls/hr [id number] IV Last administered on 04/11/19at 19:36; Start 04/11/19 at 12:00; Stop 04/13/19 at 15:18; Status DC Heparin Sodium (Porcine) (Heparin Sodium) 5,000 unit BID SQ Last administered on 04/14/19at 09:34; Start 04/11/19 at 21:00 Atropine Sulfate (ATROPINE 1mg SYRINGE) 1 mg STK-MED ONCE .ROUTE ; Start 04/10/19 at 15:16; Stop 04/11/19 at 15:16; Status DC Amiodarone HCl 450 mg/Dextrose 259 ml @ 33 mls/hr CONT PRN PRN IV SEE I/O RECORD Last administered on 04/13/19at 04:37; Start 04/12/19 at 08:15 Acetaminophen (Tylenol) 650 mg PRN Q6HRS PRN PEG MILD PAIN / TEMP Last admi nistered on 04/13/19at 00:02; Start 04/12/19 at 11:30 Dexmedetomidine HCl 400 mcg/ Sodium Chloride 100 ml @ 0 mls/hr CONT PRN IV ANXIETY / AGITATION Last administered on 04/13/19at 14:56; Start 04/13/19 at 08:00 Piperacillin Sod/ Tazobactam Sod 4.5 gm/Sodium Chloride 100 ml @ 200 mls/hr Q6HRS IV Last administered on 04/14/19at 06:12; Start 04/13/19 at 09:00 Sodium Chloride 1,000 ml @ 75 mls/hr [id number] IV ; Start 04/13/19 at 15:30; Status Cancel Sodium Chloride 1,000 ml @ 75 mls/hr [id number] IV Last administered on 04/14/19at 05:05; Start 04/13/19 at 15:45 Active Scripts Active Reported Celebrex (Celecoxib) 100 Mg Capsule 1 Cap PO BID Verapamil Er (Verapamil Hcl) 240 Mg Cap24h.pel 1 Cap PO DAILY Vitals/I & O Vital Sign - Last 24 Hours 04/13/19 04/13/19 04/13/19 04/13/19 10:00 10:15 10:26 10:30 Pulse 58 Resp 20 B/P (MAP) 108/36 (60) 108/36 (60) 106/38 (60) Pulse Ox 100 100 O2 Delivery Ventilator Ventilator 04/13/19 04/13/19 04/13/19 04/13/19 11:00 12:00 12:00 12:50 Temp 99.7 99.7 Pulse 56 56 Resp 20 20 B/P (MAP) 108/38 (61) 110/38 (62) Pulse Ox 100 100 100 O2 Delivery Ventilator Ventilator Mechanical Ventilator Ventilator 04/13/19 04/13/19 04/13/19 04/13/19 13:00 13:30 13:45 14:00 Temp 99.0 99.0 Pulse 54 52 Resp 20 20 B/P (MAP) 124/43 (70) 130/44 (72) 120/42 (68) 116/42 (66) Pulse Ox 100 100 O2 Delivery Ventilator Ventilator 04/13/19 04/13/19 04/13/19 04/13/19 14:15 14:16 14:30 14:45 B/P (MAP) 125/48 (73) 118/44 (68) 128/48 (74) Pulse Ox 100 O2 Delivery Ventilator 04/13/19 04/13/19 04/13/19 04/13/19 15:00 15:23 15:30 16:00 Temp 98.6 98.6 98.6 98.6 Pulse 52 53 Resp 20 16 B/P (MAP) 132/50 (77) 108/44 (65) 128/48 (74) Pulse Ox 100 100 100 O2 Delivery Ventilator Ventilator Ventilator 04/13/19 04/13/19 04/13/19 04/13/19 16:00 16:15 16:30 16:45 B/P (MAP) 128/48 (74) 110/42 (64) 106/40 (62) O2 Delivery Mechanical Ventilator 04/13/19 04/13/19 04/13/19 04/13/19 17:00 17:15 17:30 18:00 Pulse 52 52 Resp 16 16 B/P (MAP) 115/43 (67) 106/40 (62) 108/38 (61) 80/36 (51) Pulse Ox 100 100 O2 Delivery Ventilator Ventilator 04/13/19 04/13/19 04/13/19 04/13/19 18:30 20:00 20:00 21:00 Temp 99.5 99.5 Pulse 54 52 Resp 16 18 B/P (MAP) 116/50 (72) 115/45 (68) 119/41 (67) Pulse Ox 100 100 O2 Delivery Mechanical Ventilator Ventilator Ventilator 04/13/19 04/13/19 04/13/19 04/13/19 21:16 22:00 23:00 23:59 Pulse 52 54 Resp 16 16 B/P (MAP) 121/47 (71) 140/52 (81) Pulse Ox 100 100 100 O2 Delivery Ventilator Ventilator Ventilator Mechanical Ventilator 04/14/19 04/14/19 04/14/19 04/14/19 00:00 00:28 01:00 02:00 Temp 98.8 98.8 Pulse 52 50 51 Resp 16 16 16 B/P (MAP) 142/52 (82) 130/68 (88) 143/54 (83) Pulse Ox 100 100 100 100 O2 Delivery Ventilator Ventilator Ventilator Ventilator 04/14/19 04/14/19 04/14/19 04/14/19 02:14 03:00 04:00 04:00 Temp 99.0 99.0 Pulse 53 55 Resp 16 18 B/P (MAP) 142/53 (82) 150/56 (87) Pulse Ox 100 100 100 O2 Delivery Ventilator Ventilator Mechanical Ventilator Ventilator 04/14/19 04/14/19 04/14/19 04/14/19 04:13 05:00 05:48 06:00 Pulse 55 55 Resp 18 18 B/P (MAP) 159/66 (97) 149/57 (87) Pulse Ox 100 100 100 100 O2 Delivery Ventilator Ventilator Ventilator Ventilator 04/14/19 08:16 Pulse Ox 100 O2 Delivery Ventilator Intake and Output 04/13/19 04/13/19 04/14/19 15:00 23:00 07:00 Intake Total 100 ml 1366 ml 1440 ml Output Total 945 ml 455 ml 320 ml Balance -845 ml 911 ml 1120 ml BHARGAVI WILKS MD Apr 14, 2019 09:52
[2019-04-14] MEDS: HALOPERIDOL LACTATE 5 MG/ML VIAL. IVP PRN ×2 (10:23→22:23)
--- NOTE | 2019-04-14 12:00 | NUR ---
Sedation turned off this AM @ 0730. Precedex remains running at 0.4mcg. Pt alert, combative, punching at RN and family members. Nods head to yes and no questions. Able to move all extremities. Qamar RT at bedside @ 0830 and kary blood gas; placed pt on Cpap trial w/ PS 10. Pt on Cpap trial until 914 when pt was extubated. Around 904 Dr. Stone was at bedside and reviewed ABG and Cxr and gave the okay to extubate pt. Upon extubation, pt became very agitated and started screaming. Precedex gtt remains in place to try to calm pt. Pt on 5LNC, O2 saturation remains stable. Dr. Stone gave orders to give pt Haldol PRN for agitation. 1200: Family remains at bedside, pt still very agitated, thrashing about. Pt keeps saying "get me out of this dream" and "wake me up". RN tried to redirect pt to reality and let her know that she is in the hospital because her heart stopped. Pt very agitated and punching at RN. Pt will remain on Precedex gtt to help with agitation.
--- NOTE | 2019-04-14 12:42 | EEG ---
DATE OF SERVICE: 04/14/2019 EEG REPORT DATE OF STUDY: 04/14/2019 EEG NUMBER: [id number]. OBJECTIVE: This is a 58-year-old female patient with cardiopulmonary arrest. She received resuscitation and hypothermia then warming up, and eventually was off ventilation. EEG was requested to evaluate cerebral activity. METHODS: 20 electrodes were applied according to the international 10-20 electrode placement system. EKG monitoring, hyperventilation, intermittent photic stimulation, and monopolar and bipolar montages are routinely utilized. The record was obtained on a digital system with video monitoring. FINDINGS: 1. Background: The patient was recorded in the awake and drowsy states. No actual sleep state was recorded. The overall background amplitude is 5-15 microvolts. A posterior dominant rhythm of 6-8 Hz is observed, but most time is in the 8 Hz range. 2. Abnormalities: No specific epileptiform discharge or electrographic seizure is seen. No focal or diffuse slowing. 3. Activation: Hyperventilation was not performed because the patient has mild respiratory distress. Intermittent photic stimulation was performed with photic driving. No specific epileptiform discharge or electrographic seizure induced by intermittent photic stimulation. IMPRESSION: This EEG is a borderline study for the awake and drowsy states. No actual sleep state was recorded. The posterior dominant rhythm is in 8 Hz range most time. No focal, lateralizing, specific epileptiform discharge, or electrographic seizure is seen. ADA TERRAZAS MD DR: LASHONDA/eliane JOB#: [id number] / [id number] MIGUEL ÁNGEL
[2019-04-14] MEDS ORDERED: FUROSEMIDE 40 MG/4 ML VIAL. IVP ONE (13:00)
--- NOTE | 2019-04-14 13:45 | PDOC ---
PROGRESS NOTES Assessment Assessment Cardiopulmonary arrest, down time estimated 8 minutes per her friend. Hypoxia/anoxia encephalopathy. Metabolic encephalopathy. VT Cardiac shock. Respiratory failure. Pulmonary edema. Pulmonary interstitial infiltrate. Lactic acidosis. Hypokalemia, K+ 2.9 Hyperglycemia, glucose 300. DM. HTN. HLD. RECOMMENDATIONS/PLAN: Life support in ICU. HCT performed, ICH, IPH and SAH ruled out. Hypothermia protocol performed. Consulted Cardiology. Treat medical diseases. EEG on 04/14/19: Borderline study. No seizure activity. HISTORY OF THE PRESENT ILLNESS: This is a 58 -year-old female patient with history of hypertension, HLD and arthritis who had cardiopulmonary arrest was brought into the ER of [facility] by EMS after CPR. The patient friend stated they went to [email or web address] this morning then went to [employer] Patient ran to the parking lot to get her knutson but had dizziness after returning inside of [employer] then became unresponsive. After 5-6 minutes patient stopped breath and EMS was called and arrived to the scene after 2 minutes. She was revealed ventricular tachycardia and received shocks 2 times, Epinephrine was administrated to get pulses return. 04/14/19: Off vent. Awake. PAST MEDICAL HISTORY Cardiovascular: HTN, Hyperlipidemia Pulmonary: No pertinent hx CENTRAL NERVOUS SYSTEM: Other (No pertinent history) GI: No pertinent hx Heme/Onc: No pertinent hx Hepatobiliary: No pertinent hx Psych: No pertinent hx Musculoskeletal: Osteoarthritis Rheumatologic: No pertinent hx Infectious disease: No pertinent hx ENT: Sincusitis Renal/: No pertinent hx Endocrine: No pertinent hx Dermatology: No pertinent hx PAST SURGICAL HISTORY Appendectomy, Hysterectomy FAMILY HISTORY Coronary Artery Disease (mother and father) SOCIAL HISTORY Smoke: No ALCOHOL: none Drugs: None Lives: with Family ALLERGIES No Known Drug Allergies (Unverified , 04/10/19) MEDICATIONS: Refer to [facility] REVIEW OF SYSTEMS: Constitutional: No malnutrition, weight loss, cachexia. Head: No traumatic brain or head injury. Skin: No edema, or rash. Ear: No infection. Eyes: No vision loss or color blindness. Nose: No bleeding or purulent discharges. Hearing: No hearing decrease. Neck: No injury. Breast: No history of cancer, masses,or discharges. Cardiac: HTN, HLD. Pulmonary: No COPD. GI: No GI ulcer, GI bleeding. Urinary/genital: No dysuria, incontinence, urinary retention. Endocrinologic: Diabetes Mellitus? Skeletomuscular: No muscular atrophy, deformity. Neurological: see HP. Psychiatric: Denies drug use/abuse. Otherwise, not [id number] review of systems. PHYSICAL EXAMINATION: General appearance is in subacute distress. HEENT: Normocephalic and nontraumatic. Eyes, nose, ears, and throat are unremarkable. Neck is supple. No lymphadenopathy. No crepitus. Cardiovascular: S1, S2, seemed regular rate and rhythm. Pulmonary: On vent. Abdomen: Bowel sounds are weak. Extremities: No rash, lesions, or edema. NEUROLOGICAL EXAMINATION: Off vent. On NC 02. Partially oriented to time, place and knew person. PERRL. EOMI CN: no focal findings. Muscle tone: WNL. Muscle strength: 5- DTR: 2-3 Plantar reflex: flexor response bilaterally Gait: not examined while in bed. Sensory exam: no abnormal findings to stimuli. No cerebellar signs elicited. F-T-N test not performed due to not fully follow commands. Objective Objective Vital Signs Date Time Temp Pulse Resp B/P (MAP) Pulse Ox O2 Delivery O2 Flow Rate FiO2 04/14/19 12:00 Nasal Cannula 5.0 04/14/19 12:00 99.1 86 20 164/80 (108) 97 99.1 Intake and Output 04/14/19 07:00 Intake Total 2906 ml Output Total 1795 ml Balance 1111 ml IV Total 2906 ml Output Urine Total 1795 ml # Bowel Movements 1 Vitals Signs Vitals VS - Last 72 Hours, by Label Date Time Temp Pulse Resp B/P (MAP) Pulse Ox O2 Delivery O2 Flow Rate FiO2 04/14/19 12:00 Nasal Cannula 5.0 04/14/19 12:00 99.1 86 20 164/80 (108) 97 Nasal Cannula 5.0 99.1 04/14/19 11:00 88 20 163/90 (114) 96 Nasal Cannula 5.0 04/14/19 10:00 90 20 142/66 (91) 100 Ventilator 04/14/19 09:15 Nasal Cannula 4.0 04/14/19 09:00 60 16 134/72 (92) 100 Ventilator 04/14/19 08:20 Ventilator 04/14/19 08:16 100 Ventilator 04/14/19 08:00 Mechanical Ventilator 04/14/19 08:00 98.5 62 16 119/72 (88) 100 Ventilator 98.5 04/14/19 07:00 52 16 147/55 (85) 100 Ventilator 04/14/19 06:00 55 18 149/57 (87) 100 Ventilator 04/14/19 05:48 100 Ventilator 04/14/19 05:00 55 18 159/66 (97) 100 Ventilator 04/14/19 04:13 100 Ventilator 04/14/19 04:00 99.0 55 18 150/56 (87) 100 Ventilator 99.0 04/14/19 04:00 Mechanical Ventilator 04/14/19 03:00 53 16 142/53 (82) 100 Ventilator 04/14/19 02:14 100 Ventilator 04/14/19 02:00 51 16 143/54 (83) 100 Ventilator 04/14/19 01:00 50 16 130/68 (88) 100 Ventilator 04/14/19 00:28 100 Ventilator 04/14/19 00:00 98.8 52 16 142/52 (82) 100 Ventilator 98.8 04/13/19 23:59 Mechanical Ventilator 04/13/19 23:00 54 16 140/52 (81) 100 Ventilator 04/13/19 22:00 52 16 121/47 (71) 100 Ventilator 04/13/19 21:16 100 Ventilator 04/13/19 21:00 52 18 119/41 (67) 100 Ventilator 04/13/19 20:00 99.5 54 16 115/45 (68) 100 Ventilator 99.5 04/13/19 20:00 Mechanical Ventilator 04/13/19 18:30 116/50 (72) 04/13/19 18:00 52 16 80/36 (51) 100 Ventilator 04/13/19 17:30 108/38 (61) 04/13/19 17:15 106/40 (62) 04/13/19 17:00 52 16 115/43 (67) 100 Ventilator 04/13/19 16:45 106/40 (62) 04/13/19 16:30 110/42 (64) 04/13/19 16:15 128/48 (74) 04/13/19 16:00 Mechanical Ventilator 04/13/19 16:00 98.6 53 16 128/48 (74) 100 Ventilator 98.6 04/13/19 15:30 108/44 (65) 04/13/19 15:23 100 Ventilator 04/13/19 15:00 98.6 52 20 132/50 (77) 100 Ventilator 98.6 04/13/19 14:45 128/48 (74) 04/13/19 14:30 118/44 (68) 04/13/19 14:16 100 Ventilator 04/13/19 14:15 125/48 (73) 04/13/19 14:00 99.0 52 20 116/42 (66) 100 Ventilator 99.0 04/13/19 13:45 120/42 (68) 04/13/19 13:30 130/44 (72) 04/13/19 13:00 54 20 124/43 (70) 100 Ventilator 04/13/19 12:50 100 Ventilator 04/13/19 12:00 Mechanical Ventilator 04/13/19 12:00 99.7 56 20 110/38 (62) 100 Ventilator 99.7 04/13/19 11:00 56 20 108/38 (61) 100 Ventilator 04/13/19 10:30 106/38 (60) 04/13/19 10:26 100 Ventilator 04/13/19 10:15 108/36 (60) 04/13/19 10:00 58 20 108/36 (60) 100 Ventilator 04/13/19 09:45 110/34 (59) 04/13/19 09:30 128/40 (69) 04/13/19 09:15 106/34 (58) 04/13/19 09:00 62 20 114/38 (63) 100 Ventilator 04/13/19 08:45 84/32 (49) 04/13/19 08:00 Mechanical Ventilator 04/13/19 08:00 99.8 70 20 100/34 (56) 100 Ventilator 99.8 04/13/19 07:44 100 Ventilator 04/13/19 07:00 100.8 66 20 100/38 (58) 100 Ventilator 100.8 Laboratory Laboratory Laboratory Tests Test 04/13/19 18:10 04/14/19 05:40 04/14/19 08:15 04/14/19 08:50 O2 Saturation 98 % (92-99) 98 % (92-99) 98 % (92-99) Arterial Blood pH 7.45 (7.35-7.45) 7.42 (7.35-7.45) 7.45 (7.35-7.45) Arterial Blood pCO2 at Patient Temp 29 mmHg (35-46) 30 mmHg (35-46) 26 mmHg (35-46) Arterial Blood pO2 at Patient Temp 170 mmHg (65-108) 159 mmHg (65-108) 162 mmHg (65-108) Arterial Blood HCO3 19 mmol/L (21-28) 19 mmol/L (21-28) 18 mmol/L (21-28) Arterial Blood Base Excess -4 mmol/L (-3-3) -5 mmol/L (-3-3) -5 mmol/L (-3-3) FiO2 40 40 40 White Blood Count 12.2 x10^3/uL (4.0-11.0) Red Blood Count 2.98 x10^6/uL (3.50-5.40) Hemoglobin 8.8 g/dL (12.0-15.5) Hematocrit 26.2 % (36.0-47.0) Mean Corpuscular Volume 88 fL (79-100) Mean Corpuscular Hemoglobin 29 pg (25-35) Mean Corpuscular Hemoglobin Concent 34 g/dL (31-37) Red Cell Distribution Width 13.6 % (11.5-14.5) Platelet Count 135 x10^3/uL (140-400) Neutrophils (%) (Auto) 86 % (31-73) Lymphocytes (%) (Auto) 8 % (24-48) Monocytes (%) (Auto) 6 % (0-9) Eosinophils (%) (Auto) 1 % (0-3) Basophils (%) (Auto) 0 % (0-3) Neutrophils # (Auto) 10.5 x10^3/uL (1.8-7.7) Lymphocytes # (Auto) 1.0 x10^3/uL (1.0-4.8) Monocytes # (Auto) 0.7 x10^3/uL (0.0-1.1) Eosinophils # (Auto) 0.1 x10^3/uL (0.0-0.7) Basophils # (Auto) 0.0 x10^3/uL (0.0-0.2) Sodium Level 140 mmol/L (136-145) Potassium Level 3.6 mmol/L (3.5-5.1) Chloride Level 109 mmol/L (98-107) Carbon Dioxide Level 22 mmol/L (21-32) Anion Gap 9 (6-14) Blood Urea Nitrogen 12 mg/dL (7-20) Creatinine 0.6 mg/dL (0.6-1.0) Estimated GFR (Cockcroft-Gault) 102.0 Glucose Level 92 mg/dL (70-99) Calcium Level 8.0 mg/dL (8.5-10.1) Phosphorus Level 2.1 mg/dL (2.6-4.7) Magnesium Level 2.0 mg/dL (1.8-2.4) Microbiology 04/10/19 Blood Culture - Preliminary, Resulted NO GROWTH AFTER 4 DAYS Medication Medications Current Medications Furosemide (Lasix) 40 mg 1X ONCE IVP Last administered on 04/14/19at 13:19; Start 04/14/19 at 13:00; Stop 04/14/19 at 13:01; Status DC Haloperidol Lactate (Haldol Inj) 2 mg PRN Q6HRS PRN IVP AGITATION Last administered on 04/14/19at 10:23; Start 04/14/19 at 10:30 Hydralazine HCl (Apresoline Inj) 10 mg PRN Q4HRS PRN IVP ELEVATED BP, SEE COMMENTS; Start 04/14/19 at 13:00 Sodium Chloride 1,000 ml @ 75 mls/hr [id number] IV ; Start 04/13/19 at 15:30; Status Cancel Sodium Chloride 1,000 ml @ 75 mls/hr [id number] IV Last administered on 04/14/19at 05:05; Start 04/13/19 at 15:45 Comment Review of Relevant I have reviewed the following items fracisco (where applicable) has been applied. DAA TERRAZAS MD Apr 14, 2019 13:45
--- NOTE | 2019-04-14 14:15 | NUR ---
Pt went into controlled Afib, BP stable. JORGE Armijo at bedside. Orders received for Metoprolol 5mg IVP Q6HRS and stat EKG. BMP and MAG sent down to lab to monitor electrolyte changes.
[2019-04-14 14:28] LABS: CALCIUM 8.2 mg/dL (8.5-10.1); CREATININE 0.8 mg/dL (0.6-1.0); GFR 73.2; MAGNESIUM 1.8 mg/dL (1.8-2.4); POTASSIUM 3.4 mmol/L (3.5-5.1)
--- NOTE | 2019-04-14 14:38 | EKG ---
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
[2019-04-14] MEDS: METOPROLOL TARTRATE 5 MG/5 ML VIAL. IVP SCH (14:43)
--- NOTE | 2019-04-14 14:56 | PDOC ---
STEPHANI OLSEN FITTING ROOM INSPECTOR 04/14/19 1455: CARDIO Progress Notes Date and Time Date of Service 04/14/19 Time of Evaluation 1410 Subjective Subjective: Other (confused hallucinating.) Vitals Vitals Vital Signs Date Time Temp Pulse Resp B/P (MAP) Pulse Ox O2 Delivery O2 Flow Rate FiO2 04/14/19 14:00 112 23 156/76 (102) 94 Nasal Cannula 5.0 04/14/19 12:00 99.1 99.1 Weight Weight [ ] Input and Output Intake and Output Intake and Output 04/14/19 07:00 Intake Total 2906 ml Output Total 1795 ml Balance 1111 ml IV Total 2906 ml Output Urine Total 1795 ml # Bowel Movements 1 Laboratory Labs Laboratory Tests Test 04/13/19 18:10 04/14/19 05:40 04/14/19 08:15 04/14/19 08:50 O2 Saturation 98 % (92-99) 98 % (92-99) 98 % (92-99) Arterial Blood pH 7.45 (7.35-7.45) 7.42 (7.35-7.45) 7.45 (7.35-7.45) Arterial Blood pCO2 at Patient Temp 29 mmHg (35-46) 30 mmHg (35-46) 26 mmHg (35-46) Arterial Blood pO2 at Patient Temp 170 mmHg (65-108) 159 mmHg (65-108) 162 mmHg (65-108) Arterial Blood HCO3 19 mmol/L (21-28) 19 mmol/L (21-28) 18 mmol/L (21-28) Arterial Blood Base Excess -4 mmol/L (-3-3) -5 mmol/L (-3-3) -5 mmol/L (-3-3) FiO2 40 40 40 White Blood Count 12.2 x10^3/uL (4.0-11.0) Red Blood Count 2.98 x10^6/uL (3.50-5.40) Hemoglobin 8.8 g/dL (12.0-15.5) Hematocrit 26.2 % (36.0-47.0) Mean Corpuscular Volume 88 fL (79-100) Mean Corpuscular Hemoglobin 29 pg (25-35) Mean Corpuscular Hemoglobin Concent 34 g/dL (31-37) Red Cell Distribution Width 13.6 % (11.5-14.5) Platelet Count 135 x10^3/uL (140-400) Neutrophils (%) (Auto) 86 % (31-73) Lymphocytes (%) (Auto) 8 % (24-48) Monocytes (%) (Auto) 6 % (0-9) Eosinophils (%) (Auto) 1 % (0-3) Basophils (%) (Auto) 0 % (0-3) Neutrophils # (Auto) 10.5 x10^3/uL (1.8-7.7) Lymphocytes # (Auto) 1.0 x10^3/uL (1.0-4.8) Monocytes # (Auto) 0.7 x10^3/uL (0.0-1.1) Eosinophils # (Auto) 0.1 x10^3/uL (0.0-0.7) Basophils # (Auto) 0.0 x10^3/uL (0.0-0.2) Sodium Level 140 mmol/L (136-145) Potassium Level 3.6 mmol/L (3.5-5.1) Chloride Level 109 mmol/L (98-107) Carbon Dioxide Level 22 mmol/L (21-32) Anion Gap 9 (6-14) Blood Urea Nitrogen 12 mg/dL (7-20) Creatinine 0.6 mg/dL (0.6-1.0) Estimated GFR (Cockcroft-Gault) 102.0 Glucose Level 92 mg/dL (70-99) Calcium Level 8.0 mg/dL (8.5-10.1) Phosphorus Level 2.1 mg/dL (2.6-4.7) Magnesium Level 2.0 mg/dL (1.8-2.4) Test 04/14/19 14:10 Sodium Level 142 mmol/L (136-145) Potassium Level 3.4 mmol/L (3.5-5.1) Chloride Level 108 mmol/L (98-107) Carbon Dioxide Level 24 mmol/L (21-32) Anion Gap 10 (6-14) Blood Urea Nitrogen 13 mg/dL (7-20) Creatinine 0.8 mg/dL (0.6-1.0) Estimated GFR (Cockcroft-Gault) 73.2 Glucose Level 89 mg/dL (70-99) Calcium Level 8.2 mg/dL (8.5-10.1) Magnesium Level 1.8 mg/dL (1.8-2.4) Microbiology Micro Microbiology 04/10/19 Blood Culture - Preliminary, Resulted NO GROWTH AFTER 4 DAYS Physical Exam HEENT: Neck Supple W Full Motion Chest: Symmetric LUNGS: Other (diminished bases ) Heart: S1S2, irregularly irregular (AFIB rate 115) Abdomen: Soft N/T Extremities: No Edema Neurology: alert, confused (hallucinating ) Assessment Assessment 1. OOH cardiac arrest from VT/VF. Cardiac cath showed nonobstructive CAD. No further VT/VF. CTA negative for PE. Has been off amiodarone since last night 2. Acute respiratory failure secondary to #1. Extubated 04/14 3. Hypertension; elevated 4. Severe sinus bradycardia, resolve. off Dopamine 5. AFIB; patient converted to AFIB this afternoon. HR near 115 6 . Hyperlipidemia 7. Encephalopathy, metabolic/anoxic Recommendations EKG Start Metoprolol IV q6. Monitor for any bradyarrhythmias. Resume low-dose IV amiodarone Will need AICD implantation for primary prevention of SCD. May proceed with jeannie dow; will re-evaluate in am MATTHEW SPAIN MD 04/14/19 1624: CARDIO Progress Notes Assessment Assessment Patient seen and examined. Agree with LIFE SCIENCES DIRECTOR's assessment and plan. s/p Extubation earlier today, patient confused Patient went into atrial fibrillation this morning Agree with intravenous metoprolol and resuming amiodarone Plan for AICD implantation once more stable, /sun STEPHANI OSLEN APRN Apr 14, 2019 14:55 MATTHEW SPAIN MD Apr 14, 2019 16:24
[2019-04-14] MEDS ORDERED: MAGNESIUM SULFATE 2GM 50 ML IV ONE (15:00)
[2019-04-14] MEDS: POTASSIUM CHLORIDE 20MEQ 100 ML IV SCH ×2 (15:37→16:46)
[2019-04-14] MEDS: DEXMEDETOMIDINE 400 MCG in IV NORMAL SALINE 100ML 96 ML IV PRN (15:38)
[2019-04-14] MEDS: AMIODARONE 450 MG in IV DEXTROSE 5% 250 ML IV PRN (15:50)
--- NOTE | 2019-04-14 16:02 | NUR ---
SS following up with discharge planning. Pt extubated and now on nasal cannula oxygen. SS will continue to follow for discharge planning.
[2019-04-14] MEDS: hydrALAZINE 20 MG/ML VIAL. IVP PRN (18:07)
[2019-04-15] VITALS (34 sets, daily range): BP systolic 155–191; BP diastolic 62–94
[2019-04-15] MEDS: DEXMEDETOMIDINE 400 MCG in IV NORMAL SALINE 100ML 96 ML IV PRN ×2 (00:03→05:23)
[2019-04-15] MEDS: PIPERACILLIN/TAZOBACTAM 4.5 GM in IV NORMAL SALINE 100ML 100 ML IV SCH ×5 (00:15→23:51)
[2019-04-15] MEDS: METOPROLOL TARTRATE 5 MG/5 ML VIAL. IVP SCH ×5 (00:16→23:53)
[2019-04-15] MEDS: AMIODARONE 450 MG in IV DEXTROSE 5% 250 ML IV PRN (05:22)
[2019-04-15 05:57] LABS: BASO % 0 % (0-3); EOS % 0 % (0-3); HEMATOCRIT 25.5 % (36.0-47.0); HEMOGLOBIN 8.7 g/dL (12.0-15.5); LYMPH # 0.9 x10^3/uL (1.0-4.8); LYMPH % 7 % (24-48); MEAN CORPUSCULAR HEMOGLOBIN 30 pg (25-35); MEAN CORPUSCULAR HGB CONC 34 g/dL (31-37); MEAN CORPUSCULAR VOLUME 87 fL (79-100); MONO # 1.1 x10^3/uL (0.0-1.1); MONO % 9 % (0-9); NEUT % 84 % (31-73); PLATELET COUNT 157 x10^3/uL (140-400); RED BLOOD COUNT 2.94 x10^6/uL (3.50-5.40); WHITE BLOOD COUNT 13.1 x10^3/uL (4.0-11.0)
[2019-04-15 06:04] LABS: CALCIUM 8.2 mg/dL (8.5-10.1); CREATININE 0.7 mg/dL (0.6-1.0); GFR 85.4; MAGNESIUM 2.1 mg/dL (1.8-2.4); POTASSIUM 3.1 mmol/L (3.5-5.1)
--- NOTE | 2019-04-15 08:21 | PDOC ---
PROGRESS NOTES Chief Complaint Chief Complaint Status post cardiac arrest Status post cardiac cath with no flow limiting lesions evident Arrhythmia, patient will need AICD once more stable. Delirium, patient can be easily redirected, no focal deficits, no evidence of seizure activity on EEG History of essential hypertension History of dyslipidemia bracycardia most likely due to amiodarone Leukocytosis reactive most likely but will cover with ATB for possible aspi ration pneumonia Plan: supportive measures Monitor over the next 24 hours will need ACID as per [facility] consultant. Zosyn Continue following cardiology recommendations regarding meds History of Present Illness History of Present Illness Patient with episodes of agitation, did not respond well to haldol. No other actue events reported overnight, swallow study scheduled for later in the day Vitals Vitals Vital Signs Date Time Temp Pulse Resp B/P (MAP) Pulse Ox O2 Delivery O2 Flow Rate FiO2 04/15/19 06:04 56 24 169/85 (113) 96 Nasal Cannula 4.0 04/15/19 04:14 98.8 98.8 Physical Exam General: Other (remains intubated) Heart: Regular rate Lungs: Clear Abdomen: Normal bowel sounds Extremities: No cyanosis, No edema Skin: No significant lesion Labs LABS Laboratory Tests Test 04/14/19 08:15 04/14/19 08:50 04/14/19 14:10 04/15/19 05:40 O2 Saturation 98 % (92-99) 98 % (92-99) Arterial Blood pH 7.42 (7.35-7.45) 7.45 (7.35-7.45) Arterial Blood pCO2 at Patient Temp 30 mmHg (35-46) 26 mmHg (35-46) Arterial Blood pO2 at Patient Temp 159 mmHg (65-108) 162 mmHg (65-108) Arterial Blood HCO3 19 mmol/L (21-28) 18 mmol/L (21-28) Arterial Blood Base Excess -5 mmol/L (-3-3) -5 mmol/L (-3-3) FiO2 40 40 Sodium Level 142 mmol/L (136-145) 143 mmol/L (136-145) Potassium Level 3.4 mmol/L (3.5-5.1) 3.1 mmol/L (3.5-5.1) Chloride Level 108 mmol/L (98-107) 109 mmol/L (98-107) Carbon Dioxide Level 24 mmol/L (21-32) 23 mmol/L (21-32) Anion Gap 10 (6-14) 11 (6-14) Blood Urea Nitrogen 13 mg/dL (7-20) 16 mg/dL (7-20) Creatinine 0.8 mg/dL (0.6-1.0) 0.7 mg/dL (0.6-1.0) Estimated GFR (Cockcroft-Gault) 73.2 85.4 Glucose Level 89 mg/dL (70-99) 108 mg/dL (70-99) Calcium Level 8.2 mg/dL (8.5-10.1) 8.2 mg/dL (8.5-10.1) Magnesium Level 1.8 mg/dL (1.8-2.4) 2.1 mg/dL (1.8-2.4) White Blood Count 13.1 x10^3/uL (4.0-11.0) Red Blood Count 2.94 x10^6/uL (3.50-5.40) Hemoglobin 8.7 g/dL (12.0-15.5) Hematocrit 25.5 % (36.0-47.0) Mean Corpuscular Volume 87 fL (79-100) Mean Corpuscular Hemoglobin 30 pg (25-35) Mean Corpuscular Hemoglobin Concent 34 g/dL (31-37) Red Cell Distribution Width 13.0 % (11.5-14.5) Platelet Count 157 x10^3/uL (140-400) Neutrophils (%) (Auto) 84 % (31-73) Lymphocytes (%) (Auto) 7 % (24-48) Monocytes (%) (Auto) 9 % (0-9) Eosinophils (%) (Auto) 0 % (0-3) Basophils (%) (Auto) 0 % (0-3) Neutrophils # (Auto) 11.0 x10^3/uL (1.8-7.7) Lymphocytes # (Auto) 0.9 x10^3/uL (1.0-4.8) Monocytes # (Auto) 1.1 x10^3/uL (0.0-1.1) Eosinophils # (Auto) 0.0 x10^3/uL (0.0-0.7) Basophils # (Auto) 0.0 x10^3/uL (0.0-0.2) Assessment and Plan Assessmemt and Plan Problems Medical Problems: (1) Acute respiratory acidosis Status: Acute (2) Cardiorespiratory arrest Status: Acute (3) Elevated d-dimer Status: Acute (4) Elevated troponin Status: Acute (5) Hyperglycemia Status: Acute (6) Hypokalemia Status: Acute (7) NSTEMI (non-ST elevated myocardial infarction) Status: Acute (8) Pneumonia Status: Acute (9) Sepsis Status: Acute (10) Severe sepsis Status: Acute Comment Review of Relevant I have reviewed the following items fracisco (where applicable) has been applied. Labs Laboratory Tests Test 04/13/19 18:10 04/14/19 05:40 04/14/19 08:15 04/14/19 08:50 O2 Saturation 98 % (92-99) 98 % (92-99) 98 % (92-99) Arterial Blood pH 7.45 (7.35-7.45) 7.42 (7.35-7.45) 7.45 (7.35-7.45) Arterial Blood pCO2 at Patient Temp 29 mmHg (35-46) 30 mmHg (35-46) 26 mmHg (35-46) Arterial Blood pO2 at Patient Temp 170 mmHg (65-108) 159 mmHg (65-108) 162 mmHg (65-108) Arterial Blood HCO3 19 mmol/L (21-28) 19 mmol/L (21-28) 18 mmol/L (21-28) Arterial Blood Base Excess -4 mmol/L (-3-3) -5 mmol/L (-3-3) -5 mmol/L (-3-3) FiO2 40 40 40 White Blood Count 12.2 x10^3/uL (4.0-11.0) Red Blood Count 2.98 x10^6/uL (3.50-5.40) Hemoglobin 8.8 g/dL (12.0-15.5) Hematocrit 26.2 % (36.0-47.0) Mean Corpuscular Volume 88 fL (79-100) Mean Corpuscular Hemoglobin 29 pg (25-35) Mean Corpuscular Hemoglobin Concent 34 g/dL (31-37) Red Cell Distribution Width 13.6 % (11.5-14.5) Platelet Count 135 x10^3/uL (140-400) Neutrophils (%) (Auto) 86 % (31-73) Lymphocytes (%) (Auto) 8 % (24-48) Monocytes (%) (Auto) 6 % (0-9) Eosinophils (%) (Auto) 1 % (0-3) Basophils (%) (Auto) 0 % (0-3) Neutrophils # (Auto) 10.5 x10^3/uL (1.8-7.7) Lymphocytes # (Auto) 1.0 x10^3/uL (1.0-4.8) Monocytes # (Auto) 0.7 x10^3/uL (0.0-1.1) Eosinophils # (Auto) 0.1 x10^3/uL (0.0-0.7) Basophils # (Auto) 0.0 x10^3/uL (0.0-0.2) Sodium Level 140 mmol/L (136-145) Potassium Level 3.6 mmol/L (3.5-5.1) Chloride Level 109 mmol/L (98-107) Carbon Dioxide Level 22 mmol/L (21-32) Anion Gap 9 (6-14) Blood Urea Nitrogen 12 mg/dL (7-20) Creatinine 0.6 mg/dL (0.6-1.0) Estimated GFR (Cockcroft-Gault) 102.0 Glucose Level 92 mg/dL (70-99) Calcium Level 8.0 mg/dL (8.5-10.1) Phosphorus Level 2.1 mg/dL (2.6-4.7) Magnesium Level 2.0 mg/dL (1.8-2.4) Test 04/14/19 14:10 04/15/19 05:40 Sodium Level 142 mmol/L (136-145) 143 mmol/L (136-145) Potassium Level 3.4 mmol/L (3.5-5.1) 3.1 mmol/L (3.5-5.1) Chloride Level 108 mmol/L (98-107) 109 mmol/L (98-107) Carbon Dioxide Level 24 mmol/L (21-32) 23 mmol/L (21-32) Anion Gap 10 (6-14) 11 (6-14) Blood Urea Nitrogen 13 mg/dL (7-20) 16 mg/dL (7-20) Creatinine 0.8 mg/dL (0.6-1.0) 0.7 mg/dL (0.6-1.0) Estimated GFR (Cockcroft-Gault) 73.2 85.4 Glucose Level 89 mg/dL (70-99) 108 mg/dL (70-99) Calcium Level 8.2 mg/dL (8.5-10.1) 8.2 mg/dL (8.5-10.1) Magnesium Level 1.8 mg/dL (1.8-2.4) 2.1 mg/dL (1.8-2.4) White Blood Count 13.1 x10^3/uL (4.0-11.0) Red Blood Count 2.94 x10^6/uL (3.50-5.40) Hemoglobin 8.7 g/dL (12.0-15.5) Hematocrit 25.5 % (36.0-47.0) Mean Corpuscular Volume 87 fL (79-100) Mean Corpuscular Hemoglobin 30 pg (25-35) Mean Corpuscular Hemoglobin Concent 34 g/dL (31-37) Red Cell Distribution Width 13.0 % (11.5-14.5) Platelet Count 157 x10^3/uL (140-400) Neutrophils (%) (Auto) 84 % (31-73) Lymphocytes (%) (Auto) 7 % (24-48) Monocytes (%) (Auto) 9 % (0-9) Eosinophils (%) (Auto) 0 % (0-3) Basophils (%) (Auto) 0 % (0-3) Neutrophils # (Auto) 11.0 x10^3/uL (1.8-7.7) Lymphocytes # (Auto) 0.9 x10^3/uL (1.0-4.8) Monocytes # (Auto) 1.1 x10^3/uL (0.0-1.1) Eosinophils # (Auto) 0.0 x10^3/uL (0.0-0.7) Basophils # (Auto) 0.0 x10^3/uL (0.0-0.2) Laboratory Tests Test 04/14/19 08:15 04/14/19 08:50 04/14/19 14:10 04/15/19 05:40 O2 Saturation 98 % (92-99) 98 % (92-99) Arterial Blood pH 7.42 (7.35-7.45) 7.45 (7.35-7.45) Arterial Blood pCO2 at Patient Temp 30 mmHg (35-46) 26 mmHg (35-46) Arterial Blood pO2 at Patient Temp 159 mmHg (65-108) 162 mmHg (65-108) Arterial Blood HCO3 19 mmol/L (21-28) 18 mmol/L (21-28) Arterial Blood Base Excess -5 mmol/L (-3-3) -5 mmol/L (-3-3) FiO2 40 40 Sodium Level 142 mmol/L (136-145) 143 mmol/L (136-145) Potassium Level 3.4 mmol/L (3.5-5.1) 3.1 mmol/L (3.5-5.1) Chloride Level 108 mmol/L (98-107) 109 mmol/L (98-107) Carbon Dioxide Level 24 mmol/L (21-32) 23 mmol/L (21-32) Anion Gap 10 (6-14) 11 (6-14) Blood Urea Nitrogen 13 mg/dL (7-20) 16 mg/dL (7-20) Creatinine 0.8 mg/dL (0.6-1.0) 0.7 mg/dL (0.6-1.0) Estimated GFR (Cockcroft-Gault) 73.2 85.4 Glucose Level 89 mg/dL (70-99) 108 mg/dL (70-99) Calcium Level 8.2 mg/dL (8.5-10.1) 8.2 mg/dL (8.5-10.1) Magnesium Level 1.8 mg/dL (1.8-2.4) 2.1 mg/dL (1.8-2.4) White Blood Count 13.1 x10^3/uL (4.0-11.0) Red Blood Count 2.94 x10^6/uL (3.50-5.40) Hemoglobin 8.7 g/dL (12.0-15.5) Hematocrit 25.5 % (36.0-47.0) Mean Corpuscular Volume 87 fL (79-100) Mean Corpuscular Hemoglobin 30 pg (25-35) Mean Corpuscular Hemoglobin Concent 34 g/dL (31-37) Red Cell Distribution Width 13.0 % (11.5-14.5) Platelet Count 157 x10^3/uL (140-400) Neutrophils (%) (Auto) 84 % (31-73) Lymphocytes (%) (Auto) 7 % (24-48) Monocytes (%) (Auto) 9 % (0-9) Eosinophils (%) (Auto) 0 % (0-3) Basophils (%) (Auto) 0 % (0-3) Neutrophils # (Auto) 11.0 x10^3/uL (1.8-7.7) Lymphocytes # (Auto) 0.9 x10^3/uL (1.0-4.8) Monocytes # (Auto) 1.1 x10^3/uL (0.0-1.1) Eosinophils # (Auto) 0.0 x10^3/uL (0.0-0.7) Basophils # (Auto) 0.0 x10^3/uL (0.0-0.2) Microbiology 04/10/19 Blood Culture - Preliminary, Resulted NO GROWTH AFTER 4 DAYS Medications Current Medications Norepinephrine Bitartrate 8 mg/ Dextrose 258 ml @ 13.855 mls/ hr 1X ONCE IV Last administered on 04/10/19at 12:40; Start 04/10/19 at 12:30; Stop 04/10/19 at 12:31; Status DC Amiodarone HCl 450 mg/Dextrose 259 ml @ 33 mls/hr 1X ONCE IV Last administered on 04/10/19at 12:55; Start 04/10/19 at 12:45; Stop 04/10/19 at 20:35; Status DC Sodium Chloride 1,000 ml @ 1,000 mls/hr Q1H IV Last administered on 04/10/19at 12:20; Start 04/10/19 at 12:13; Stop 04/10/19 at 13:12; Status DC Midazolam HCl 50 mg/Sodium Chloride 50 ml @ 1 mls/hr 1X ONCE IV Last administered on 04/10/19at 13:35; Start 04/10/19 at 13:15; Stop 04/11/19 at 13:55; Status DC Potassium Chloride/Water 100 ml @ 50 mls/hr 1X ONCE IV ; Start 04/10/19 at 13:15; Stop 04/10/19 at 13:16; Status DC Etomidate (Amidate) 20 mg STK-MED ONCE IV ; Start 04/10/19 at 13:14; Stop 04/10/19 at 13:14; Status DC Midazolam HCl (Versed) 5 mg STK-MED ONCE .ROUTE ; Start 04/10/19 at 13:15; Stop 04/10/19 at 13:15; Status DC Succinylcholine Chloride (Anectine) 200 mg STK-MED ONCE .ROUTE ; Start 04/10/19 at 13:15; Stop 04/10/19 at 13:15; Status DC Potassium Chloride/Water 100 ml @ 100 mls/hr Q1H IV ; Start 04/10/19 at 14:00; Stop 04/10/19 at 15:59; Status DC Sodium Bicarbonate (Sodium Bicarb Adult 8.4% Syr) 50 meq 1X ONCE IV Last administered on 04/10/19at 17:17; Start 04/10/19 at 13:30; Stop 04/10/19 at 13:31; Status DC Sodium Chloride 1,000 ml @ 150 mls/hr Q6H40M IV ; Start 04/10/19 at 13:28; Stop 04/11/19 at 00:46; Status DC Piperacillin Sod/ Tazobactam Sod 3.375 gm/Sodium Chloride 50 ml @ 100 mls/hr 1X ONCE IV Last administered on 04/10/19at 18:35; Start 04/10/19 at 13:45; Stop 04/10/19 at 14:14; Status DC Vancomycin HCl 250 ml @ 250 mls/hr 1X ONCE IV ; Start 04/10/19 at 13:45; Stop 04/10/19 at 14:44; Status UNV Sodium Chloride 1,000 ml @ 1,000 mls/hr 1X ONCE IV Last administered on 04/10/19at 13:45; Start 04/10/19 at 13:45; Stop 04/10/19 at 14:44; Status DC Vancomycin HCl 1.75 gm/Sodium Chloride 500 ml @ 250 mls/hr 1X ONCE IV ; Start 04/10/19 at 14:00; Stop 04/10/19 at 15:59; Status DC Iodixanol (Visipaque 320) 100 ml STK-MED ONCE .ROUTE ; Start 04/10/19 at 14:01; Stop 04/10/19 at 14:02; Status DC Heparin Sodium/ Sodium Chloride 500 ml @ As Directed STK-MED ONCE .ROUTE ; Start 04/10/19 at 14:02; Stop 04/10/19 at 14:02; Status DC Lidocaine HCl (Xylocaine-Mpf 1% 2ml Vial) 2 ml STK-MED ONCE .ROUTE ; Start 04/10/19 at 14:02; Stop 04/10/19 at 14:02; Status DC Lidocaine HCl (Lidocaine 1% 20ml Vial) 20 ml STK-MED ONCE .ROUTE ; Start 04/10/19 at 14:03; Stop 04/10/19 at 14:04; Status DC Heparin Sodium (Porcine) (Heparin Sodium) 10,000 unit STK-MED ONCE .ROUTE ; Start 04/10/19 at 15:16; Stop 04/10/19 at 15:16; Status DC Heparin Sodium/ Sodium Chloride (HEPARIN for ARTERIAL LINE FLUSH) 1,000 unit 1X ONCE IART Last administered on 04/10/19at 15:42; Start 04/10/19 at 15:30; Stop 04/10/19 at 23:39; Status DC Iodixanol (Visipaque 320) 104 ml 1X ONCE IART Last administered on 04/10/19at 15:42; Start 04/10/19 at 15:30; Stop 04/10/19 at 23:39; Status DC Heparin Sodium (Porcine) (Heparin Sodium) 4,000 unit 1X ONCE IV Last administered on 04/10/19at 15:42; Start 04/10/19 at 15:30; Stop 04/10/19 at 23:39; Status DC Lidocaine HCl (Lidocaine 1% 20ml Vial) 20 ml 1X ONCE INJ Last administered on 04/10/19at 15:42; Start 04/10/19 at 15:30; Stop 04/10/19 at 23:39; Status DC Atropine Sulfate (ATROPINE 1mg SYRINGE) 1 mg 1X ONCE IV Last administered on 04/10/19at 12:42; Start 04/10/19 at 12:42; Stop 04/10/19 at 15:42; Status DC Midazolam HCl (Versed) 5 mg 1X ONCE IV Last administered on 04/10/19at 13:15; Start 04/10/19 at 13:15; Stop 04/10/19 at 15:42; Status DC Vecuronium Graham (Norcuron Bolus) 10 mg STK-MED ONCE IV ; Start 04/10/19 at 16:54; Stop 04/10/19 at 16:55; Status DC Fentanyl Citrate (Fentanyl 2ml Vial) 100 mcg STK-MED ONCE .ROUTE ; Start 04/10/19 at 16:55; Stop 04/10/19 at 16:56; Status DC Fentanyl Citrate (Fentanyl 2ml Vial) 100 mcg 1X ONCE IV Last administered on 04/10/19at 17:16; Start 04/10/19 at 17:00; Stop 04/10/19 at 17:01; Status DC Midazolam HCl (Versed) 2 mg 1X ONCE IV ; Start 04/10/19 at 17:00; Stop 04/10/19 at 17:01; Status DC Magnesium Sulfate/ Dextrose 100 ml @ 100 mls/hr 1X ONCE IV Last administered on 04/10/19at 17:16; Start 04/10/19 at 18:00; Stop 04/10/19 at 18:59; Status DC Buspirone HCl (Buspar) 30 mg Q8HRS NG Last administered on 04/11/19at 21:13; Start 04/10/19 at 17:00; Stop 04/12/19 at 05:17; Status DC Acetaminophen (Tylenol) 650 mg Q4H NG Last administered on 04/12/19at 00:27; Start 04/10/19 at 17:00; Stop 04/12/19 at 03:15; Status DC Artificial Tears (Artificial Tears) 1 drop Q6HRS OU Last administered on 04/12/19at 00:27; Start 04/10/19 at 18:00; Stop 04/12/19 at 05:17; Status DC Artificial Tears (Artificial Tears) 1 drop PRN Q15MIN PRN OU DRY EYE; Start 04/10/19 at 17:00 Heparin Sodium (Porcine) (Heparin Sodium) 5,000 unit BID SQ ; Start 04/10/19 at 21:00; Status Cancel Pantoprazole Sodium (PROTONIX VIAL for IV PUSH) 40 mg DAILY IVP Last administered on 04/14/19at 09:33; Start 04/10/19 at 18:00 Fentanyl Citrate 30 ml @ 0 mls/hr CONT PRN IV PER PROTOCOL. Last administered on 04/10/19at 17:30; Start 04/10/19 at 17:00; Stop 04/14/19 at 13:51; Status DC Propofol 100 ml @ 0 mls/hr CONT PRN IV PER PROTOCOL. Last administered on 04/14/19at 04:56; Start 04/10/19 at 17:00; Stop 04/14/19 at 13:51; Status DC Midazolam HCl 50 mg/Sodium Chloride 50 ml @ 0 mls/hr CONT PRN IV PER PROTOCOL. Last administered on 04/12/19at 00:27; Start 04/10/19 at 17:00; Stop 04/14/19 at 13:51; Status DC Vecuronium Graham (Norcuron Bolus) 7 mg PRN Q1HR PRN IV SHIVERING Last administered on 04/11/19at 15:48; Start 04/10/19 at 17:00; Stop 04/14/19 at 13:51; Status DC Heparin Sodium/ Dextrose 250 ml @ 0 mls/hr CONT PRN IV PER PROTOCOL; Start 04/10/19 at 17:30; Stop 04/10/19 at 23:42; Status DC Heparin Sodium (Porcine) (Heparin Sodium) 2,150 unit PRN Q6HRS PRN IV FOR UFH LEVEL LESS THAN 0.2; Start 04/10/19 at 17:30; Stop 04/10/19 at 23:39; Status DC Heparin Sodium (Porcine) (Heparin Sodium) 1,050 unit PRN Q6HRS PRN IV FOR UFH LEVEL 0.2 - 0.29; Start 04/10/19 at 17:30; Stop 04/10/19 at 23:39; Status DC Hydralazine HCl (Apresoline Inj) 10 mg PRN Q6HRS PRN IVP ELEVATED BP, SEE COMMENTS; Start 04/10/19 at 18:00; Stop 04/14/19 at 13:00; Status DC Hydralazine HCl (Apresoline Inj) 20 mg STK-MED ONCE .ROUTE ; Start 04/10/19 at 17:56; Stop 04/10/19 at 17:56; Status DC Iohexol (Omnipaque 350 Mg/ml) 75 ml 1X ONCE IV Last administered on 04/10/19at 18:45; Start 04/10/19 at 18:45; Stop 04/10/19 at 18:46; Status DC Insulin Human Regular 100 unit/ Sodium Chloride 101 ml @ 0 mls/hr CONT PRN IV SEE I/O RECORD Last administered on 04/11/19at 10:23; Start 04/10/19 at 19:30; Stop 04/12/19 at 03:15; Status DC Magnesium Sulfate/ Dextrose 100 ml @ 100 mls/hr PRN DAILY PRN IV MAG level 2.4-3.0mg/dl Last administered on 04/11/19at 08:44; Start 04/10/19 at 20:30 Potassium Chloride/Water 100 ml @ 100 mls/hr PRN DAILY PRN IV K+ level 3.1- 3.4mEq/L Last administered on 04/11/19at 06:50; Start 04/10/19 at 20:30 Magnesium Sulfate/ Dextrose 100 ml @ 100 mls/hr 1X PRN IV MAG level 2.4- 3.0mg/dl Last administered on 04/10/19at 22:17; Start 04/10/19 at 22:00; Stop 04/11/19 at 01:56; Status DC Potassium Chloride/Water 100 ml @ 100 mls/hr 1X PRN IV K+ level 3.1-3.4mEq/L Last administered on 04/10/19at 22:16; Start 04/10/19 at 22:00; Stop 04/11/19 at 01:55; Status DC Norepinephrine Bitartrate 8 mg/ Dextrose 258 ml @ 13.855 mls/ hr CONT PRN IV PER PROTOCOL Last administered on 04/13/19at 13:22; Start 04/10/19 at 22:45; Stop 04/14/19 at 13:51; Status DC Heparin Sodium/ Dextrose 250 ml @ 0 mls/hr CONT PRN IV PER PROTOCOL Last administered on 04/11/19at 00:43; Start 04/10/19 at 23:45; Stop 04/11/19 at 09:36; Status DC Heparin Sodium (Porcine) (Heparin Sodium) 1,800 unit PRN Q6HRS PRN IV FOR UFH LEVEL LESS THAN 0.2; Start 04/10/19 at 23:45; Stop 04/11/19 at 09:54; Status DC Amiodarone HCl 450 mg/Dextrose 259 ml @ 0 mls/hr CONT PRN IV SEE I/O RECORD Last administered on 04/12/19at 11:52; Start 04/11/19 at 00:00; Stop 04/11/19 at 19:36; Status DC Dextrose/Sodium Chloride 1,000 ml @ 75 mls/hr [id number] IV Last administered on 04/11/19at 01:57; Start 04/11/19 at 01:00; Stop 04/11/19 at 10:53; Status DC Potassium Chloride/Water 100 ml @ 50 mls/hr PRN DAILY PRN IV K+ level less than 3.1 mEq/l; Start 04/11/19 at 02:00; Status Cancel Potassium Chloride/Water 100 ml @ 100 mls/hr PRN Q1HR PRN IV K<3.1; Start 04/11/19 at 02:00 Magnesium Sulfate/ Dextrose 100 ml @ 100 mls/hr PRN DAILY PRN IV MAG level 2.4-3.0mg/dl; Start 04/11/19 at 06:45; Status UNV Potassium Chloride/Water 100 ml @ 100 mls/hr PRN DAILY PRN IV K+ level 3.1- 3.4mEq/L; Start 04/11/19 at 06:45; Status UNV Atropine Sulfate (ATROPINE 0.5mg SYRINGE) 0.25 mg 1X ONCE IM ; Start 04/11/19 at 09:45; Stop 04/11/19 at 09:38; Status DC Atropine Sulfate (ATROPINE 1mg SYRINGE) 0.25 mg 1X ONCE IM Last administered on 04/11/19at 09:55; Start 04/11/19 at 09:45; Stop 04/11/19 at 09:46; Status DC Dopamine HCl/ Dextrose 250 ml @ 6.676 mls/ hr CONT PRN IV SEE I/O RECORD Last administered on 04/12/19at 20:21; Start 04/11/19 at 10:00; Stop 04/14/19 at 13:51; Status DC Sodium Chloride 1,000 ml @ 75 mls/hr [id number] IV Last administered on 04/11/19at 19:36; Start 04/11/19 at 12:00; Stop 04/13/19 at 15:18; Status DC Heparin Sodium (Porcine) (Heparin Sodium) 5,000 unit BID SQ Last administered on 04/14/19at 21:19; Start 04/11/19 at 21:00 Atropine Sulfate (ATROPINE 1mg SYRINGE) 1 mg STK-MED ONCE .ROUTE ; Start 04/10/19 at 15:16; Stop 04/11/19 at 15:16; Status DC Amiodarone HCl 450 mg/Dextrose 259 ml @ 33 mls/hr CONT PRN PRN IV SEE I/O RECORD Last administered on 04/13/19at 04:37; Start 04/12/19 at 08:15; Stop 04/14/19 at 13:51; Status DC Acetaminophen (Tylenol) 650 mg PRN Q6HRS PRN PEG MILD PAIN / TEMP Last administered on 04/13/19at 00:02; Start 04/12/19 at 11:30 Dexmedetomidine HCl 400 mcg/ Sodium Chloride 100 ml @ 0 mls/hr CONT PRN IV ANXIETY / AGITATION Last administered on 04/15/19at 05:23; Start 04/13/19 at 08:00 Piperacillin Sod/ Tazobactam Sod 4.5 gm/Sodium Chloride 100 ml @ 200 mls/hr Q6HRS IV Last administered on 04/15/19at 05:39; Start 04/13/19 at 09:00 Sodium Chloride 1,000 ml @ 75 mls/hr [id number] IV ; Start 04/13/19 at 15:30; Status Cancel Sodium Chloride 1,000 ml @ 75 mls/hr [id number] IV Last administered on 04/14/19at 05:05; Start 04/13/19 at 15:45; Stop 04/14/19 at 18:32; Status DC Haloperidol Lactate (Haldol Inj) 2 mg PRN Q6HRS PRN IVP AGITATION Last administered on 04/14/19at 22:23; Start 04/14/19 at 10:30 Furosemide (Lasix) 40 mg 1X ONCE IVP Last administered on 04/14/19at 13:19; Start 04/14/19 at 13:00; Stop 04/14/19 at 13:01; Status DC Hydralazine HCl (Apresoline Inj) 10 mg PRN Q4HRS PRN IVP ELEVATED BP, SEE COMMENTS Last administered on 04/14/19at 18:07; Start 04/14/19 at 13:00 Atropine Sulfate (ATROPINE 1mg SYRINGE) 1 mg STK-MED ONCE .ROUTE ; Start 04/10/19 at 10:00; Stop 04/14/19 at 13:34; Status DC Calcium Chloride 1,000 mg STK-MED ONCE IV ; Start 04/10/19 at 10:00; Stop 04/14/19 at 13:34; Status DC Metoprolol Tartrate (Lopressor Vial) 5 mg Q6HRS IVP Last administered on 04/15/19at 00:16; Start 04/14/19 at 14:30 Magnesium Sulfate 50 ml @ 25 mls/hr 1X ONCE IV Last administered on 04/14/19at 15:39; Start 04/14/19 at 15:00; Stop 04/14/19 at 16:59; Status DC Potassium Chloride/Water 100 ml @ 100 mls/hr Q1H IV Last administered on 04/14/19at 16:46; Start 04/14/19 at 15:00; Stop 04/14/19 at 16:59; Status DC Amiodarone HCl 450 mg/Dextrose 259 ml @ 17 mls/hr CONT PRN IV SEE I/O RECORD Last administered on 04/15/19at 05:22; Start 04/14/19 at 15:15; Stop 04/15/19 at 05:23; Status DC Active Scripts Active Reported Celebrex (Celecoxib) 100 Mg Capsule 1 Cap PO BID Verapamil Er (Verapamil Hcl) 240 Mg Cap24h.pel 1 Cap PO DAILY Vitals/I & O Vital Sign - Last 24 Hours 04/14/19 04/14/19 04/14/19 04/14/19 08:16 08:20 09:00 09:15 Pulse 60 Resp 16 B/P (MAP) 134/72 (92) Pulse Ox 100 100 O2 Delivery Ventilator Ventilator Ventilator Nasal Cannula O2 Flow Rate 4.0 04/14/19 04/14/19 04/14/19 04/14/19 10:00 11:00 12:00 12:00 Temp 99.1 99.1 Pulse 90 88 86 Resp 20 B/P (MAP) 142/66 (91) 163/90 (114) 164/80 (108) Pulse Ox 100 96 97 O2 Delivery Ventilator Nasal Cannula Nasal Cannula Nasal Cannula O2 Flow Rate 5.0 5.0 5.0 04/14/19 04/14/19 04/14/19 04/14/19 13:00 14:00 14:43 15:00 Pulse 86 112 113 80 Resp 24 B/P (MAP) 166/78 (107) 156/76 (102) 182/69 156/76 (102) Pulse Ox 96 94 93 O2 Delivery Nasal Cannula Nasal Cannula Nasal Cannula O2 Flow Rate 5.0 5.0 5.0 04/14/19 04/14/19 04/14/19 04/14/19 16:00 16:00 17:00 18:00 Temp 99.5 99.5 Pulse 88 85 85 Resp 22 B/P (MAP) 153/80 (104) 157/83 (107) 162/78 (106) Pulse Ox 93 96 98 O2 Delivery Nasal Cannula Nasal Cannula Nasal Cannula Nasal Cannula O2 Flow Rate 5.0 5.0 4.0 3.0 04/14/19 04/14/19 04/14/19 04/14/19 18:07 19:00 20:15 20:24 Temp 99.0 99.3 99.0 99.3 Pulse 88 94 86 Resp B/P (MAP) 162/73 142/68 (92) 153/66 (95) Pulse Ox 97 98 O2 Delivery Nasal Cannula Nasal Cannula Nasal Cannula O2 Flow Rate 2.0 2.0 2.0 04/14/19 04/14/19 04/14/19 04/15/19 21:27 22:14 23:04 00:16 Temp 99.1 99.0 99.1 99.0 Pulse 76 73 69 68 Resp 15 B/P (MAP) 131/60 (83) 152/68 (96) 145/66 (92) 155/45 Pulse Ox 97 97 95 O2 Delivery Nasal Cannula Nasal Cannula Nasal Cannula O2 Flow Rate 2.0 2.0 2.0 04/15/19 04/15/19 04/15/19 04/15/19 00:22 00:24 01:04 02:11 Temp 98.8 98.8 98.8 98.8 Pulse 73 65 67 Resp B/P (MAP) 155/75 (101) 156/76 (102) 162/76 (104) Pulse Ox 93 93 95 O2 Delivery Nasal Cannula Nasal Cannula Nasal Cannula Nasal Cannula O2 Flow Rate 2.0 2.0 2.0 2.0 04/15/19 04/15/19 04/15/19 04/15/19 03:13 04:12 04:14 05:00 Temp 98.8 98.8 Pulse 70 71 61 Resp 24 26 26 B/P (MAP) 160/82 (108) 167/83 (111) 162/69 (100) Pulse Ox 95 91 90 O2 Delivery Nasal Cannula Nasal Cannula Nasal Cannula Nasal Cannula O2 Flow Rate 2.0 2.0 2.0 2.0 04/15/19 04/15/19 05:41 06:04 Pulse 56 56 Resp 24 B/P (MAP) 162/69 169/85 (113) Pulse Ox 96 O2 Delivery Nasal Cannula O2 Flow Rate 4.0 Intake and Output 04/14/19 04/14/19 04/15/19 15:00 23:00 07:00 Intake Total 670 ml 402 ml 475.2 ml Output Total 810 ml 1735 ml 330 ml Balance -140 ml -1333 ml 145.2 ml BHARGAVI WILKS MD Apr 15, 2019 08:21
[2019-04-15] MEDS: HEPARIN for SUB-Q USE 5,000 UNIT/ML VIAL. SQ SCH (09:00)
[2019-04-15] MEDS ORDERED: BACITRACIN 50,000 UNIT in IV NORMAL SALINE 250ML 250 ML IRR ONE (09:00)
[2019-04-15] MEDS ORDERED: LIDOCAINE 2%/EPI 1:100,000 20 ML VIAL. IJ ONE (09:00)
[2019-04-15] MEDS ORDERED: ceFAZolin SODIUM IV Push 1 GM VIAL. IVP ONE ×2 (09:00→12:30)
[2019-04-15] MEDS ORDERED: MIDAZOLAM HCL/PF 2 MG/2 ML VIAL. ONE (09:38)
[2019-04-15] MEDS ORDERED: PROPOFOL 50 ML IV ONE (09:40)
[2019-04-15] MEDS: POTASSIUM CHLORIDE 20MEQ 100 ML IV SCH ×2 (09:51→13:05)
--- NOTE | 2019-04-15 09:53 | PDOC ---
PROGRESS NOTES Assessment Problems Medical Problems: (1) Acute respiratory acidosis Status: Acute (2) Cardiorespiratory arrest Status: Acute (3) Elevated d-dimer Status: Acute (4) Elevated troponin Status: Acute (5) Hyperglycemia Status: Acute (6) Hypokalemia Status: Acute (7) NSTEMI (non-ST elevated myocardial infarction) Status: Acute (8) Pneumonia Status: Acute (9) Sepsis Status: Acute (10) Severe sepsis Status: Acute Cardiopulmonary arrest, down time estimated 8 minutes per her friend. CT head negative, borderline study, mild slowing of background, no epileptic activity Anoxic encephalopathy. Ventricular tachycardia Cardiac shock. Respiratory failure. Pulmonary edema. Pulmonary interstitial infiltrate. Lactic acidosis. Hypokalemia, K+ 2.9 Hyperglycemia, glucose 300. DM. HTN. HLD. Plan Continue medical treatments, and understand she will be getting a pacemaker I discussed with family. Subjective No complaints Objective Vital Signs Date Time Temp Pulse Resp B/P (MAP) Pulse Ox O2 Delivery O2 Flow Rate FiO2 04/15/19 09:00 74 19 171/84 (113) 96 Nasal Cannula 4.0 04/15/19 08:00 100.0 100.0 Intake and Output 04/15/19 07:00 Intake Total 1547.2 ml Output Total 2875 ml Balance -1327.8 ml IV Total 1547.2 ml Output Urine Total 2875 ml # Bowel Movements 1 PHYSICAL EXAM Alerts easily, does not know date or location, less combative according to nurse PERRL. EOMI. CN: no focal findings. Muscle tone: normal. Muscle strength: 5 minus S5 DTR: 2+ Plantar reflex: flexor Gait: not examined in bed. Sensory exam: responds to pin prick and all for extremities Cerebellar: not cooperative Review of Relevant I have reviewed the following items fracisco (where applicable) has been applied. Labs Laboratory Tests Test 04/13/19 18:10 04/14/19 05:40 04/14/19 08:15 04/14/19 08:50 O2 Saturation 98 % (92-99) 98 % (92-99) 98 % (92-99) Arterial Blood pH 7.45 (7.35-7.45) 7.42 (7.35-7.45) 7.45 (7.35-7.45) Arterial Blood pCO2 at Patient Temp 29 mmHg (35-46) 30 mmHg (35-46) 26 mmHg (35-46) Arterial Blood pO2 at Patient Temp 170 mmHg (65-108) 159 mmHg (65-108) 162 mmHg (65-108) Arterial Blood HCO3 19 mmol/L (21-28) 19 mmol/L (21-28) 18 mmol/L (21-28) Arterial Blood Base Excess -4 mmol/L (-3-3) -5 mmol/L (-3-3) -5 mmol/L (-3-3) FiO2 40 40 40 White Blood Count 12.2 x10^3/uL (4.0-11.0) Red Blood Count 2.98 x10^6/uL (3.50-5.40) Hemoglobin 8.8 g/dL (12.0-15.5) Hematocrit 26.2 % (36.0-47.0) Mean Corpuscular Volume 88 fL (79-100) Mean Corpuscular Hemoglobin 29 pg (25-35) Mean Corpuscular Hemoglobin Concent 34 g/dL (31-37) Red Cell Distribution Width 13.6 % (11.5-14.5) Platelet Count 135 x10^3/uL (140-400) Neutrophils (%) (Auto) 86 % (31-73) Lymphocytes (%) (Auto) 8 % (24-48) Monocytes (%) (Auto) 6 % (0-9) Eosinophils (%) (Auto) 1 % (0-3) Basophils (%) (Auto) 0 % (0-3) Neutrophils # (Auto) 10.5 x10^3/uL (1.8-7.7) Lymphocytes # (Auto) 1.0 x10^3/uL (1.0-4.8) Monocytes # (Auto) 0.7 x10^3/uL (0.0-1.1) Eosinophils # (Auto) 0.1 x10^3/uL (0.0-0.7) Basophils # (Auto) 0.0 x10^3/uL (0.0-0.2) Sodium Level 140 mmol/L (136-145) Potassium Level 3.6 mmol/L (3.5-5.1) Chloride Level 109 mmol/L (98-107) Carbon Dioxide Level 22 mmol/L (21-32) Anion Gap 9 (6-14) Blood Urea Nitrogen 12 mg/dL (7-20) Creatinine 0.6 mg/dL (0.6-1.0) Estimated GFR (Cockcroft-Gault) 102.0 Glucose Level 92 mg/dL (70-99) Calcium Level 8.0 mg/dL (8.5-10.1) Phosphorus Level 2.1 mg/dL (2.6-4.7) Magnesium Level 2.0 mg/dL (1.8-2.4) Test 04/14/19 14:10 04/15/19 05:40 Sodium Level 142 mmol/L (136-145) 143 mmol/L (136-145) Potassium Level 3.4 mmol/L (3.5-5.1) 3.1 mmol/L (3.5-5.1) Chloride Level 108 mmol/L (98-107) 109 mmol/L (98-107) Carbon Dioxide Level 24 mmol/L (21-32) 23 mmol/L (21-32) Anion Gap 10 (6-14) 11 (6-14) Blood Urea Nitrogen 13 mg/dL (7-20) 16 mg/dL (7-20) Creatinine 0.8 mg/dL (0.6-1.0) 0.7 mg/dL (0.6-1.0) Estimated GFR (Cockcroft-Gault) 73.2 85.4 Glucose Level 89 mg/dL (70-99) 108 mg/dL (70-99) Calcium Level 8.2 mg/dL (8.5-10.1) 8.2 mg/dL (8.5-10.1) Magnesium Level 1.8 mg/dL (1.8-2.4) 2.1 mg/dL (1.8-2.4) White Blood Count 13.1 x10^3/uL (4.0-11.0) Red Blood Count 2.94 x10^6/uL (3.50-5.40) Hemoglobin 8.7 g/dL (12.0-15.5) Hematocrit 25.5 % (36.0-47.0) Mean Corpuscular Volume 87 fL (79-100) Mean Corpuscular Hemoglobin 30 pg (25-35) Mean Corpuscular Hemoglobin Concent 34 g/dL (31-37) Red Cell Distribution Width 13.0 % (11.5-14.5) Platelet Count 157 x10^3/uL (140-400) Neutrophils (%) (Auto) 84 % (31-73) Lymphocytes (%) (Auto) 7 % (24-48) Monocytes (%) (Auto) 9 % (0-9) Eosinophils (%) (Auto) 0 % (0-3) Basophils (%) (Auto) 0 % (0-3) Neutrophils # (Auto) 11.0 x10^3/uL (1.8-7.7) Lymphocytes # (Auto) 0.9 x10^3/uL (1.0-4.8) Monocytes # (Auto) 1.1 x10^3/uL (0.0-1.1) Eosinophils # (Auto) 0.0 x10^3/uL (0.0-0.7) Basophils # (Auto) 0.0 x10^3/uL (0.0-0.2) Laboratory Tests Test 04/14/19 14:10 04/15/19 05:40 Sodium Level 142 mmol/L (136-145) 143 mmol/L (136-145) Potassium Level 3.4 mmol/L (3.5-5.1) 3.1 mmol/L (3.5-5.1) Chloride Level 108 mmol/L (98-107) 109 mmol/L (98-107) Carbon Dioxide Level 24 mmol/L (21-32) 23 mmol/L (21-32) Anion Gap 10 (6-14) 11 (6-14) Blood Urea Nitrogen 13 mg/dL (7-20) 16 mg/dL (7-20) Creatinine 0.8 mg/dL (0.6-1.0) 0.7 mg/dL (0.6-1.0) Estimated GFR (Cockcroft-Gault) 73.2 85.4 Glucose Level 89 mg/dL (70-99) 108 mg/dL (70-99) Calcium Level 8.2 mg/dL (8.5-10.1) 8.2 mg/dL (8.5-10.1) Magnesium Level 1.8 mg/dL (1.8-2.4) 2.1 mg/dL (1.8-2.4) White Blood Count 13.1 x10^3/uL (4.0-11.0) Red Blood Count 2.94 x10^6/uL (3.50-5.40) Hemoglobin 8.7 g/dL (12.0-15.5) Hematocrit 25.5 % (36.0-47.0) Mean Corpuscular Volume 87 fL (79-100) Mean Corpuscular Hemoglobin 30 pg (25-35) Mean Corpuscular Hemoglobin Concent 34 g/dL (31-37) Red Cell Distribution Width 13.0 % (11.5-14.5) Platelet Count 157 x10^3/uL (140-400) Neutrophils (%) (Auto) 84 % (31-73) Lymphocytes (%) (Auto) 7 % (24-48) Monocytes (%) (Auto) 9 % (0-9) Eosinophils (%) (Auto) 0 % (0-3) Basophils (%) (Auto) 0 % (0-3) Neutrophils # (Auto) 11.0 x10^3/uL (1.8-7.7) Lymphocytes # (Auto) 0.9 x10^3/uL (1.0-4.8) Monocytes # (Auto) 1.1 x10^3/uL (0.0-1.1) Eosinophils # (Auto) 0.0 x10^3/uL (0.0-0.7) Basophils # (Auto) 0.0 x10^3/uL (0.0-0.2) Microbiology 04/10/19 Blood Culture - Preliminary, Resulted NO GROWTH AFTER 4 DAYS Medications Current Medications Norepinephrine Bitartrate 8 mg/ Dextrose 258 ml @ 13.855 mls/ hr 1X ONCE IV Last administered on 04/10/19at 12:40; Start 04/10/19 at 12:30; Stop 04/10/19 at 12:31; Status DC Amiodarone HCl 450 mg/Dextrose 259 ml @ 33 mls/hr 1X ONCE IV Last administered on 04/10/19at 12:55; Start 04/10/19 at 12:45; Stop 04/10/19 at 20:35; Status DC Sodium Chloride 1,000 ml @ 1,000 mls/hr Q1H IV Last administered on 04/10/19at 12:20; Start 04/10/19 at 12:13; Stop 04/10/19 at 13:12; Status DC Midazolam HCl 50 mg/Sodium Chloride 50 ml @ 1 mls/hr 1X ONCE IV Last a dministered on 04/10/19at 13:35; Start 04/10/19 at 13:15; Stop 04/11/19 at 13:55; Status DC Potassium Chloride/Water 100 ml @ 50 mls/hr 1X ONCE IV ; Start 04/10/19 at 13:15; Stop 04/10/19 at 13:16; Status DC Etomidate (Amidate) 20 mg STK-MED ONCE IV ; Start 04/10/19 at 13:14; Stop 04/10/19 at 13:14; Status DC Midazolam HCl (Versed) 5 mg STK-MED ONCE .ROUTE ; Start 04/10/19 at 13:15; Stop 04/10/19 at 13:15; Status DC Succinylcholine Chloride (Anectine) 200 mg STK-MED ONCE .ROUTE ; Start 04/10/19 at 13:15; Stop 04/10/19 at 13:15; Status DC Potassium Chloride/Water 100 ml @ 100 mls/hr Q1H IV ; Start 04/10/19 at 14:00; Stop 04/10/19 at 15:59; Status DC Sodium Bicarbonate (Sodium Bicarb Adult 8.4% Syr) 50 meq 1X ONCE IV Last administered on 04/10/19at 17:17; Start 04/10/19 at 13:30; Stop 04/10/19 at 13:31; Status DC Sodium Chloride 1,000 ml @ 150 mls/hr Q6H40M IV ; Start 04/10/19 at 13:28; Stop 04/11/19 at 00:46; Status DC Piperacillin Sod/ Tazobactam Sod 3.375 gm/Sodium Chloride 50 ml @ 100 mls/hr 1X ONCE IV Last administered on 04/10/19at 18:35; Start 04/10/19 at 13:45; Stop 04/10/19 at 14:14; Status DC Vancomycin HCl 250 ml @ 250 mls/hr 1X ONCE IV ; Start 04/10/19 at 13:45; Stop 04/10/19 at 14:44; Status UNV Sodium Chloride 1,000 ml @ 1,000 mls/hr 1X ONCE IV Last administered on 04/10/19at 13:45; Start 04/10/19 at 13:45; Stop 04/10/19 at 14:44; Status DC Vancomycin HCl 1.75 gm/Sodium Chloride 500 ml @ 250 mls/hr 1X ONCE IV ; Start 04/10/19 at 14:00; Stop 04/10/19 at 15:59; Status DC Iodixanol (Visipaque 320) 100 ml STK-MED ONCE .ROUTE ; Start 04/10/19 at 14:01; Stop 04/10/19 at 14:02; Status DC Heparin Sodium/ Sodium Chloride 500 ml @ As Directed STK-MED ONCE .ROUTE ; Start 04/10/19 at 14:02; Stop 04/10/19 at 14:02; Status DC Lidocaine HCl (Xylocaine-Mpf 1% 2ml Vial) 2 ml STK-MED ONCE .ROUTE ; Start 04/10/19 at 14:02; Stop 04/10/19 at 14:02; Status DC Lidocaine HCl (Lidocaine 1% 20ml Vial) 20 ml STK-MED ONCE .ROUTE ; Start 04/10/19 at 14:03; Stop 04/10/19 at 14:04; Status DC Heparin Sodium (Porcine) (Heparin Sodium) 10,000 unit STK-MED ONCE .ROUTE ; Start 04/10/19 at 15:16; Stop 04/10/19 at 15:16; Status DC Heparin Sodium/ Sodium Chloride (HEPARIN for ARTERIAL LINE FLUSH) 1,000 unit 1X ONCE IART Last administered on 04/10/19at 15:42; Start 04/10/19 at 15:30; Stop 04/10/19 at 23:39; Status DC Iodixanol (Visipaque 320) 104 ml 1X ONCE IART Last administered on 04/10/19at 15:42; Start 04/10/19 at 15:30; Stop 04/10/19 at 23:39; Status DC Heparin Sodium (Porcine) (Heparin Sodium) 4,000 unit 1X ONCE IV Last administered on 04/10/19at 15:42; Start 04/10/19 at 15:30; Stop 04/10/19 at 23:39; Status DC Lidocaine HCl (Lidocaine 1% 20ml Vial) 20 ml 1X ONCE INJ Last administered on 04/10/19at 15:42; Start 04/10/19 at 15:30; Stop 04/10/19 at 23:39; Status DC Atropine Sulfate (ATROPINE 1mg SYRINGE) 1 mg 1X ONCE IV Last administered on 04/10/19at 12:42; Start 04/10/19 at 12:42; Stop 04/10/19 at 15:42; Status DC Midazolam HCl (Versed) 5 mg 1X ONCE IV Last administered on 04/10/19at 13:15; Start 04/10/19 at 13:15; Stop 04/10/19 at 15:42; Status DC Vecuronium [place] (Norcuron Bolus) 10 mg STK-MED ONCE IV ; Start 04/10/19 at 16:54; Stop 04/10/19 at 16:55; Status DC Fentanyl Citrate (Fentanyl 2ml Vial) 100 mcg STK-MED ONCE .ROUTE ; Start 04/10/19 at 16:55; Stop 04/10/19 at 16:56; Status DC Fentanyl Citrate (Fentanyl 2ml Vial) 100 mcg 1X ONCE IV Last administered on 04/10/19at 17:16; Start 04/10/19 at 17:00; Stop 04/10/19 at 17:01; Status DC Midazolam HCl (Versed) 2 mg 1X ONCE IV ; Start 04/10/19 at 17:00; Stop 04/10/19 at 17:01; Status DC Magnesium Sulfate/ Dextrose 100 ml @ 100 mls/hr 1X ONCE IV Last administered on 04/10/19at 17:16; Start 04/10/19 at 18:00; Stop 04/10/19 at 18:59; Status DC Buspirone HCl (Buspar) 30 mg Q8HRS NG Last administered on 04/11/19at 21:13; Start 04/10/19 at 17:00; Stop 04/12/19 at 05:17; Status DC Acetaminophen (Tylenol) 650 mg Q4H NG Last administered on 04/12/19at 00:27; Start 04/10/19 at 17:00; Stop 04/12/19 at 03:15; Status DC Artificial Tears (Artificial Tears) 1 drop Q6HRS OU Last administered on 04/12/19at 00:27; Start 04/10/19 at 18:00; Stop 04/12/19 at 05:17; Status DC Artificial Tears (Artificial Tears) 1 drop PRN Q15MIN PRN OU DRY EYE; Start 04/10/19 at 17:00 Heparin Sodium (Porcine) (Heparin Sodium) 5,000 unit BID SQ ; Start 04/10/19 at 21:00; Status Cancel Pantoprazole Sodium (PROTONIX VIAL for IV PUSH) 40 mg DAILY IVP Last administered on 04/14/19at 09:33; Start 04/10/19 at 18:00 Fentanyl Citrate 30 ml @ 0 mls/hr CONT PRN IV PER PROTOCOL. Last administered on 04/10/19at 17:30; Start 04/10/19 at 17:00; Stop 04/14/19 at 13:51; Status DC Propofol 100 ml @ 0 mls/hr CONT PRN IV PER PROTOCOL. Last administered on 04/14/19at 04:56; Start 04/10/19 at 17:00; Stop 04/14/19 at 13:51; Status DC Midazolam HCl 50 mg/Sodium Chloride 50 ml @ 0 mls/hr CONT PRN IV PER PROTOCOL. Last administered on 04/12/19at 00:27; Start 04/10/19 at 17:00; Stop 04/14/19 at 13:51; Status DC Vecuronium [place] (Norcuron Bolus) 7 mg PRN Q1HR PRN IV SHIVERING Last administered on 04/11/19at 15:48; Start 04/10/19 at 17:00; Stop 04/14/19 at 13:51; Status DC Heparin Sodium/ Dextrose 250 ml @ 0 mls/hr CONT PRN IV PER PROTOCOL; Start 04/10/19 at 17:30; Stop 04/10/19 at 23:42; Status DC Heparin Sodium (Porcine) (Heparin Sodium) 2,150 unit PRN Q6HRS PRN IV FOR UFH LEVEL LESS THAN 0.2; Start 04/10/19 at 17:30; Stop 04/10/19 at 23:39; Status DC Heparin Sodium (Porcine) (Heparin Sodium) 1,050 unit PRN Q6HRS PRN IV FOR UFH LEVEL 0.2 - 0.29; Start 04/10/19 at 17:30; Stop 04/10/19 at 23:39; Status DC Hydralazine HCl (Apresoline Inj) 10 mg PRN Q6HRS PRN IVP ELEVATED BP, SEE COMMENTS; Start 04/10/19 at 18:00; Stop 04/14/19 at 13:00; Status DC Hydralazine HCl (Apresoline Inj) 20 mg STK-MED ONCE .ROUTE ; Start 04/10/19 at 17:56; Stop 04/10/19 at 17:56; Status DC Iohexol (Omnipaque 350 Mg/ml) 75 ml 1X ONCE IV Last administered on 04/10/19at 18:45; Start 04/10/19 at 18:45; Stop 04/10/19 at 18:46; Status DC Insulin Human Regular 100 unit/ Sodium Chloride 101 ml @ 0 mls/hr CONT PRN IV SEE I/O RECORD Last administered on 04/11/19at 10:23; Start 04/10/19 at 19:30; Stop 04/12/19 at 03:15; Status DC Magnesium Sulfate/ Dextrose 100 ml @ 100 mls/hr PRN DAILY PRN IV MAG level 2.4-3.0mg/dl Last administered on 04/11/19at 08:44; Start 04/10/19 at 20:30 Potassium Chloride/Water 100 ml @ 100 mls/hr PRN DAILY PRN IV K+ level 3.1- 3.4mEq/L Last administered on 04/11/19at 06:50; Start 04/10/19 at 20:30 Magnesium Sulfate/ Dextrose 100 ml @ 100 mls/hr 1X PRN IV MAG level 2.4- 3.0mg/dl Last administered on 04/10/19at 22:17; Start 04/10/19 at 22:00; Stop 04/11/19 at 01:56; Status DC Potassium Chloride/Water 100 ml @ 100 mls/hr 1X PRN IV K+ level 3.1-3.4mEq/L Last administered on 04/10/19at 22:16; Start 04/10/19 at 22:00; Stop 04/11/19 at 01:55; Status DC Norepinephrine Bitartrate 8 mg/ Dextrose 258 ml @ 13.855 mls/ hr CONT PRN IV PER PROTOCOL Last administered on 04/13/19at 13:22; Start 04/10/19 at 22:45; Stop 04/14/19 at 13:51; Status DC Heparin Sodium/ Dextrose 250 ml @ 0 mls/hr CONT PRN IV PER PROTOCOL Last administered on 04/11/19at 00:43; Start 04/10/19 at 23:45; Stop 04/11/19 at 09:36; Status DC Heparin Sodium (Porcine) (Heparin Sodium) 1,800 unit PRN Q6HRS PRN IV FOR UFH LEVEL LESS THAN 0.2; Start 04/10/19 at 23:45; Stop 04/11/19 at 09:54; Status DC Amiodarone HCl 450 mg/Dextrose 259 ml @ 0 mls/hr CONT PRN IV SEE I/O RECORD Last administered on 04/12/19at 11:52; Start 04/11/19 at 00:00; Stop 04/11/19 at 19:36; Status DC Dextrose/Sodium Chloride 1,000 ml @ 75 mls/hr [id number] IV Last administered on 04/11/19at 01:57; Start 04/11/19 at 01:00; Stop 04/11/19 at 10:53; Status DC Potassium Chloride/Water 100 ml @ 50 mls/hr PRN DAILY PRN IV K+ level less than 3.1 mEq/l; Start 04/11/19 at 02:00; Status Cancel Potassium Chloride/Water 100 ml @ 100 mls/hr PRN Q1HR PRN IV K<3.1; Start 04/11/19 at 02:00 Magnesium Sulfate/ Dextrose 100 ml @ 100 mls/hr PRN DAILY PRN IV MAG level 2.4-3.0mg/dl; Start 04/11/19 at 06:45; Status UNV Potassium Chloride/Water 100 ml @ 100 mls/hr PRN DAILY PRN IV K+ level 3.1-3.4mEq/L; Start 04/11/19 at 06:45; Status UNV Atropine Sulfate (ATROPINE 0.5mg SYRINGE) 0.25 mg 1X ONCE IM ; Start 04/11/19 at 09:45; Stop 04/11/19 at 09:38; Status DC Atropine Sulfate (ATROPINE 1mg SYRINGE) 0.25 mg 1X ONCE IM Last administered on 04/11/19at 09:55; Start 04/11/19 at 09:45; Stop 04/11/19 at 09:46; Status DC Dopamine HCl/ Dextrose 250 ml @ 6.676 mls/ hr CONT PRN IV SEE I/O RECORD Last administered on 04/12/19at 20:21; Start 04/11/19 at 10:00; Stop 04/14/19 at 13:51; Status DC Sodium Chloride 1,000 ml @ 75 mls/hr [id number] IV Last administered on 04/11/19at 19:36; Start 04/11/19 at 12:00; Stop 04/13/19 at 15:18; Status DC Heparin Sodium (Porcine) (Heparin Sodium) 5,000 unit BID SQ Last administered on 04/14/19at 21:19; Start 04/11/19 at 21:00 Atropine Sulfate (ATROPINE 1mg SYRINGE) 1 mg STK-MED ONCE .ROUTE ; Start 04/10/19 at 15:16; Stop 04/11/19 at 15:16; Status DC Amiodarone HCl 450 mg/Dextrose 259 ml @ 33 mls/hr CONT PRN PRN IV SEE I/O RECORD Last administered on 04/13/19at 04:37; Start 04/12/19 at 08:15; Stop 04/14/19 at 13:51; Status DC Acetaminophen (Tylenol) 650 mg PRN Q6HRS PRN PEG MILD PAIN / TEMP Last admin istered on 04/13/19at 00:02; Start 04/12/19 at 11:30 Dexmedetomidine HCl 400 mcg/ Sodium Chloride 100 ml @ 0 mls/hr CONT PRN IV ANXIETY / AGITATION Last administered on 04/15/19at 05:23; Start 04/13/19 at 08:00 Piperacillin Sod/ Tazobactam Sod 4.5 gm/Sodium Chloride 100 ml @ 200 mls/hr Q6HRS IV Last administered on 04/15/19at 05:39; Start 04/13/19 at 09:00 Sodium Chloride 1,000 ml @ 75 mls/hr [id number] IV ; Start 04/13/19 at 15:30; Status Cancel Sodium Chloride 1,000 ml @ 75 mls/hr [id number] IV Last administered on 04/14/19at 05:05; Start 04/13/19 at 15:45; Stop 04/14/19 at 18:32; Status DC Haloperidol Lactate (Haldol Inj) 2 mg PRN Q6HRS PRN IVP AGITATION Last administered on 04/14/19at 22:23; Start 04/14/19 at 10:30 Furosemide (Lasix) 40 mg 1X ONCE IVP Last administered on 04/14/19at 13:19; Start 04/14/19 at 13:00; Stop 04/14/19 at 13:01; Status DC Hydralazine HCl (Apresoline Inj) 10 mg PRN Q4HRS PRN IVP ELEVATED BP, SEE COMMENTS Last administered on 04/14/19at 18:07; Start 04/14/19 at 13:00 Atropine Sulfate (ATROPINE 1mg SYRINGE) 1 mg STK-MED ONCE .ROUTE ; Start 04/10/19 at 10:00; Stop 04/14/19 at 13:34; Status DC Calcium Chloride 1,000 mg STK-MED ONCE IV ; Start 04/10/19 at 10:00; Stop 04/14/19 at 13:34; Status DC Metoprolol Tartrate (Lopressor Vial) 5 mg Q6HRS IVP Last administered on 04/15/19at 00:16; Start 04/14/19 at 14:30 Magnesium Sulfate 50 ml @ 25 mls/hr 1X ONCE IV Last administered on 04/14/19at 15:39; Start 04/14/19 at 15:00; Stop 04/14/19 at 16:59; Status DC Potassium Chloride/Water 100 ml @ 100 mls/hr Q1H IV Last administered on 04/14/19at 16:46; Start 04/14/19 at 15:00; Stop 04/14/19 at 16:59; Status DC Amiodarone HCl 450 mg/Dextrose 259 ml @ 17 mls/hr CONT PRN IV SEE I/O RECORD Last administered on 04/15/19at 05:22; Start 04/14/19 at 15:15; Stop 04/15/19 at 05:23; Status DC Lorazepam (Ativan Inj) 0.5 mg PRN Q4HRS PRN IVP ANXIETY / AGITATION; Start 04/15/19 at 08:15 Lorazepam (Ativan Inj) 1 mg PRN Q4HRS PRN IVP ANXIETY / AGITATION; Start 04/15/19 at 08:30 Potassium Chloride/Water 100 ml @ 100 mls/hr Q1H IV ; Start 04/15/19 at 09:00; Stop 04/15/19 at 10:59 Lidocaine/ Epinephrine (LIDOCAINE 2%-EPI 1:100,000 multi-dose) 20 ml 1X ONCE IJ ; Start 04/15/19 at 09:00; Stop 04/15/19 at 09:06; Status DC Bacitracin 23481 unit/Sodium Chloride 250 ml @ 0 mls/hr 1X ONCE IRR ; Start 04/15/19 at 09:00; Stop 04/15/19 at 09:06; Status DC Cefazolin Sodium (Ancef) 1 gm 1X ONCE IVP ; Start 04/15/19 at 09:00; Stop 04/15/19 at 09:06; Status DC Midazolam HCl (Versed) 2 mg STK-MED ONCE .ROUTE ; Start 04/15/19 at 09:38; Stop 04/15/19 at 09:38; Status DC Propofol 50 ml @ As Directed STK-MED ONCE IV ; Start 04/15/19 at 09:40; Stop 04/15/19 at 09:40; Status DC Active Scripts Active Reported Celebrex (Celecoxib) 100 Mg Capsule 1 Cap PO BID Verapamil Er (Verapamil Hcl) 240 Mg Cap24h.pel 1 Cap PO DAILY Vitals/I & O Vital Sign - Last 24 Hours 04/14/19 04/14/19 04/14/19 04/14/19 10:00 11:00 12:00 12:00 Temp 99.1 99.1 Pulse 90 88 86 Resp 20 20 20 B/P (MAP) 142/66 (91) 163/90 (114) 164/80 (108) Pulse Ox 100 96 97 O2 Delivery Ventilator Nasal Cannula Nasal Cannula Nasal Cannula O2 Flow Rate 5.0 5.0 5.0 04/14/19 04/14/19 04/14/19 04/14/19 13:00 14:00 14:43 15:00 Pulse 86 112 113 80 Resp 20 23 24 B/P (MAP) 166/78 (107) 156/76 (102) 182/69 156/76 (102) Pulse Ox 96 94 93 O2 Delivery Nasal Cannula Nasal Cannula Nasal Cannula O2 Flow Rate 5.0 5.0 5.0 04/14/19 04/14/19 04/14/19 04/14/19 16:00 16:00 17:00 18:00 Temp 99.5 99.5 Pulse 88 85 85 Resp 20 22 B/P (MAP) 153/80 (104) 157/83 (107) 162/78 (106) Pulse Ox 93 96 98 O2 Delivery Nasal Cannula Nasal Cannula Nasal Cannula Nasal Cannula O2 Flow Rate 5.0 5.0 4.0 3.0 04/14/19 04/14/19 04/14/19 04/14/19 18:07 19:00 20:15 20:24 Temp 99.0 99.3 99.0 99.3 Pulse 88 94 86 Resp 23 B/P (MAP) 162/73 142/68 (92) 153/66 (95) Pulse Ox 97 98 O2 Delivery Nasal Cannula Nasal Cannula Nasal Cannula O2 Flow Rate 2.0 2.0 2.0 04/14/19 04/14/19 04/14/19 04/15/19 21:27 22:14 23:04 00:16 Temp 99.1 99.0 99.1 99.0 Pulse 76 73 69 68 Resp 15 B/P (MAP) 131/60 (83) 152/68 (96) 145/66 (92) 155/45 Pulse Ox 97 97 95 O2 Delivery Nasal Cannula Nasal Cannula Nasal Cannula O2 Flow Rate 2.0 2.0 2.0 04/15/19 04/15/19 04/15/19 04/15/19 00:22 00:24 01:04 02:11 Temp 98.8 98.8 98.8 98.8 Pulse 73 65 67 Resp 22 B/P (MAP) 155/75 (101) 156/76 (102) 162/76 (104) Pulse Ox 93 93 95 O2 Delivery Nasal Cannula Nasal Cannula Nasal Cannula Nasal Cannula O2 Flow Rate 2.0 2.0 2.0 2.0 04/15/19 04/15/19 04/15/19 04/15/19 03:13 04:12 04:14 05:00 Temp 98.8 98.8 Pulse 70 71 61 Resp 24 26 26 B/P (MAP) 160/82 (108) 167/83 (111) 162/69 (100) Pulse Ox 95 91 90 O2 Delivery Nasal Cannula Nasal Cannula Nasal Cannula Nasal Cannula O2 Flow Rate 2.0 2.0 2.0 2.0 04/15/19 04/15/19 04/15/19 04/15/19 05:41 06:04 07:00 08:00 Temp 100.0 100.0 Pulse 56 56 84 75 Resp 24 24 20 B/P (MAP) 162/69 169/85 (113) 182/86 (118) 169/82 (111) Pulse Ox 96 96 95 O2 Delivery Nasal Cannula Nasal Cannula Room Air O2 Flow Rate 4.0 4.0 4.0 04/15/19 04/15/19 08:00 09:00 Pulse 74 Resp 19 B/P (MAP) 171/84 (113) Pulse Ox 96 O2 Delivery Nasal Cannula Nasal Cannula O2 Flow Rate 4.0 4.0 Intake and Output 04/14/19 04/14/19 04/15/19 15:00 23:00 07:00 Intake Total 670 ml 402 ml 475.2 ml Output Total 810 ml 1735 ml 330 ml Balance -140 ml -1333 ml 145.2 ml GAIL WOOD MD Apr 15, 2019 09:53
[2019-04-15] MEDS: PANTOPRAZOLE IV PUSH 40 MG VIAL. IVP SCH (09:54)
[2019-04-15] MEDS: hydrALAZINE 20 MG/ML VIAL. IVP PRN ×3 (09:55→19:34)
[2019-04-15] MEDS ORDERED: FUROSEMIDE 40 MG/4 ML VIAL. ONE (10:03)
--- NOTE | 2019-04-15 10:05 | PDOC ---
PULMONARY PROGRESS NOTES Subjective extubated 04/14 comfortable Vitals Vital Signs Date Time Temp Pulse Resp B/P (MAP) Pulse Ox O2 Delivery O2 Flow Rate FiO2 04/15/19 09:55 70 176/88 04/15/19 09:00 19 96 Nasal Cannula 4.0 04/15/19 08:00 100.0 100.0 General: Alert, No acute distress Lungs: Clear Cardiovascular: S1, S2 Abdomen: Soft, Non-tender Neuro Exam: Alert Extremities: No Edema Skin: Warm, Diaphoretic Labs Laboratory Tests Test 04/13/19 18:10 04/14/19 05:40 04/14/19 08:15 04/14/19 08:50 O2 Saturation 98 % (92-99) 98 % (92-99) 98 % (92-99) Arterial Blood pH 7.45 (7.35-7.45) 7.42 (7.35-7.45) 7.45 (7.35-7.45) Arterial Blood pCO2 at Patient Temp 29 mmHg (35-46) 30 mmHg (35-46) 26 mmHg (35-46) Arterial Blood pO2 at Patient Temp 170 mmHg (65-108) 159 mmHg (65-108) 162 mmHg (65-108) Arterial Blood HCO3 19 mmol/L (21-28) 19 mmol/L (21-28) 18 mmol/L (21-28) Arterial Blood Base Excess -4 mmol/L (-3-3) -5 mmol/L (-3-3) -5 mmol/L (-3-3) FiO2 40 40 40 White Blood Count 12.2 x10^3/uL (4.0-11.0) Red Blood Count 2.98 x10^6/uL (3.50-5.40) Hemoglobin 8.8 g/dL (12.0-15.5) Hematocrit 26.2 % (36.0-47.0) Mean Corpuscular Volume 88 fL (79-100) Mean Corpuscular Hemoglobin 29 pg (25-35) Mean Corpuscular Hemoglobin Concent 34 g/dL (31-37) Red Cell Distribution Width 13.6 % (11.5-14.5) Platelet Count 135 x10^3/uL (140-400) Neutrophils (%) (Auto) 86 % (31-73) Lymphocytes (%) (Auto) 8 % (24-48) Monocytes (%) (Auto) 6 % (0-9) Eosinophils (%) (Auto) 1 % (0-3) Basophils (%) (Auto) 0 % (0-3) Neutrophils # (Auto) 10.5 x10^3/uL (1.8-7.7) Lymphocytes # (Auto) 1.0 x10^3/uL (1.0-4.8) Monocytes # (Auto) 0.7 x10^3/uL (0.0-1.1) Eosinophils # (Auto) 0.1 x10^3/uL (0.0-0.7) Basophils # (Auto) 0.0 x10^3/uL (0.0-0.2) Sodium Level 140 mmol/L (136-145) Potassium Level 3.6 mmol/L (3.5-5.1) Chloride Level 109 mmol/L (98-107) Carbon Dioxide Level 22 mmol/L (21-32) Anion Gap 9 (6-14) Blood Urea Nitrogen 12 mg/dL (7-20) Creatinine 0.6 mg/dL (0.6-1.0) Estimated GFR (Cockcroft-Gault) 102.0 Glucose Level 92 mg/dL (70-99) Calcium Level 8.0 mg/dL (8.5-10.1) Phosphorus Level 2.1 mg/dL (2.6-4.7) Magnesium Level 2.0 mg/dL (1.8-2.4) Test 04/14/19 14:10 04/15/19 05:40 Sodium Level 142 mmol/L (136-145) 143 mmol/L (136-145) Potassium Level 3.4 mmol/L (3.5-5.1) 3.1 mmol/L (3.5-5.1) Chloride Level 108 mmol/L (98-107) 109 mmol/L (98-107) Carbon Dioxide Level 24 mmol/L (21-32) 23 mmol/L (21-32) Anion Gap 10 (6-14) 11 (6-14) Blood Urea Nitrogen 13 mg/dL (7-20) 16 mg/dL (7-20) Creatinine 0.8 mg/dL (0.6-1.0) 0.7 mg/dL (0.6-1.0) Estimated GFR (Cockcroft-Gault) 73.2 85.4 Glucose Level 89 mg/dL (70-99) 108 mg/dL (70-99) Calcium Level 8.2 mg/dL (8.5-10.1) 8.2 mg/dL (8.5-10.1) Magnesium Level 1.8 mg/dL (1.8-2.4) 2.1 mg/dL (1.8-2.4) White Blood Count 13.1 x10^3/uL (4.0-11.0) Red Blood Count 2.94 x10^6/uL (3.50-5.40) Hemoglobin 8.7 g/dL (12.0-15.5) Hematocrit 25.5 % (36.0-47.0) Mean Corpuscular Volume 87 fL (79-100) Mean Corpuscular Hemoglobin 30 pg (25-35) Mean Corpuscular Hemoglobin Concent 34 g/dL (31-37) Red Cell Distribution Width 13.0 % (11.5-14.5) Platelet Count 157 x10^3/uL (140-400) Neutrophils (%) (Auto) 84 % (31-73) Lymphocytes (%) (Auto) 7 % (24-48) Monocytes (%) (Auto) 9 % (0-9) Eosinophils (%) (Auto) 0 % (0-3) Basophils (%) (Auto) 0 % (0-3) Neutrophils # (Auto) 11.0 x10^3/uL (1.8-7.7) Lymphocytes # (Auto) 0.9 x10^3/uL (1.0-4.8) Monocytes # (Auto) 1.1 x10^3/uL (0.0-1.1) Eosinophils # (Auto) 0.0 x10^3/uL (0.0-0.7) Basophils # (Auto) 0.0 x10^3/uL (0.0-0.2) Laboratory Tests Test 04/14/19 14:10 04/15/19 05:40 Sodium Level 142 mmol/L (136-145) 143 mmol/L (136-145) Potassium Level 3.4 mmol/L (3.5-5.1) 3.1 mmol/L (3.5-5.1) Chloride Level 108 mmol/L (98-107) 109 mmol/L (98-107) Carbon Dioxide Level 24 mmol/L (21-32) 23 mmol/L (21-32) Anion Gap 10 (6-14) 11 (6-14) Blood Urea Nitrogen 13 mg/dL (7-20) 16 mg/dL (7-20) Creatinine 0.8 mg/dL (0.6-1.0) 0.7 mg/dL (0.6-1.0) Estimated GFR (Cockcroft-Gault) 73.2 85.4 Glucose Level 89 mg/dL (70-99) 108 mg/dL (70-99) Calcium Level 8.2 mg/dL (8.5-10.1) 8.2 mg/dL (8.5-10.1) Magnesium Level 1.8 mg/dL (1.8-2.4) 2.1 mg/dL (1.8-2.4) White Blood Count 13.1 x10^3/uL (4.0-11.0) Red Blood Count 2.94 x10^6/uL (3.50-5.40) Hemoglobin 8.7 g/dL (12.0-15.5) Hematocrit 25.5 % (36.0-47.0) Mean Corpuscular Volume 87 fL (79-100) Mean Corpuscular Hemoglobin 30 pg (25-35) Mean Corpuscular Hemoglobin Concent 34 g/dL (31-37) Red Cell Distribution Width 13.0 % (11.5-14.5) Platelet Count 157 x10^3/uL (140-400) Neutrophils (%) (Auto) 84 % (31-73) Lymphocytes (%) (Auto) 7 % (24-48) Monocytes (%) (Auto) 9 % (0-9) Eosinophils (%) (Auto) 0 % (0-3) Basophils (%) (Auto) 0 % (0-3) Neutrophils # (Auto) 11.0 x10^3/uL (1.8-7.7) Lymphocytes # (Auto) 0.9 x10^3/uL (1.0-4.8) Monocytes # (Auto) 1.1 x10^3/uL (0.0-1.1) Eosinophils # (Auto) 0.0 x10^3/uL (0.0-0.7) Basophils # (Auto) 0.0 x10^3/uL (0.0-0.2) Medications Active Scripts Medications Dose Route/Sig Max Daily Dose Days Date Category Celebrex (Celecoxib) 100 Mg Capsule 1 Cap PO BID 04/11/19 Reported Verapamil Er (Verapamil Hcl) 240 Mg Cap24h.pel 1 Cap PO DAILY 04/11/19 Reported Comments cxr reviewed 04/15 increase bilateral infiltrate c/w CHF CTA CHEST IMPRESSION: 1. No pulmonary embolus identified within the main, lobar or segmental pulmonary arteries. 2. Layering consolidative changes in the lungs bilaterally greater on the left favored to represent pulmonary edema. Superimposed infectious process is difficult to exclude. FINDINGS 1. Hemodynamics: Left ventricular end-diastolic pressure 5 mmHg. No pullback gradient across the aortic valve. 2. Left ventriculography: Normal left ventricle systolic function with ejection fraction estimated at 55%. No significant mitral regurgitation seen. 3. Coronary angiography: a. The left main coronary artery arose from the left sinus of Valsalva, gave rise to the left anterior descending and left circumflex arteries and did not show any significant stenosis. b. The left anterior descending artery showed 30% stenosis in the midsegment. The diagonal branch showed 50% stenosis in the proximal segment. c. The left circumflex artery did not show any significant stenosis. d. The right coronary artery was a large and dominant vessel arising from the right sinus of Valsalva that showed 50% stenosis in the midsegment. This was physiologically insignificant based on IFR measurement of 1.0. Conclusion 1. Nonobstructive coronary artery disease. 50% stenosis involving dominant right coronary artery that was physiologically not significant based on IFR measurement. The diagonal branch which is a small to medium caliber vessel also showed 50% proximal segment stenosis. 2. Normal left ventricle systolic function with ejection fraction estimated at 55%. Recommendations Consider AICD implantation for secondary prevention of sudden cardiac if workup for pulmonary embolism as negative Impression . IMPRESSION: 1. Iwd-fa-izxfxjer cardiopulmonary arrest, etiology unclear. 2. Status post emergent cardiac catheterization revealing normal ejection fraction, nonobstructive coronary artery disease, 50% stenosis involving the dominant right coronary artery. Normal left ventricular ejection fraction estimated at 55%. 3. Hypertension. 4. Recent acute bronchitis. 5. Abnormal ct chest with bilateral infiltrates 6. worsening CXR today c/w CHF Plan . Nasal canula MS improving/ prn haldol Lasix today NEGATIVE CTA OF CHEST for PE monitor k, cr EMPIRIC ANTIBX s/p HYPOTHERMIC PROTOCOL amio per cardiology/ AICD today discussed w rn / family/ RT ABDOULAYE CAT MD Apr 15, 2019 10:05
[2019-04-15] MEDS ORDERED: LIDOCAINE 2%/EPI 1:100,000 20 ML VIAL. ONE (10:08)
[2019-04-15] MEDS ORDERED: FUROSEMIDE 40 MG/4 ML VIAL. IVP ONE (10:15)
--- NOTE | 2019-04-15 10:43 | RAD ---
Examination: PORTABLE CHEST 1V History: On ventilator Comparison/Correlation: 04/14/2019 portal chest x-ray exam Findings: Portable upright frontal view chest was obtained. Right internal jugular catheter again seen. Interval removal of enteric tube noted. Heart size is borderline. Pulmonary vasculature is borderline. Interstitial edema or other interstitial thickening noted. Left basilar consolidation noted. No pneumothorax. Small left pleural effusion noted. Impression: Interval development of left basilar consolidation and pleural effusion. Correlate for possibility of underlying aspiration in the interval. Borderline pulmonary vasculature congestion in the interval. Electronically signed by: Jorje Felipe MD (04/15/2019 10:40 AM) [facility]
[2019-04-15] MEDS ORDERED: IOHEXOL 300 MG/ML 100ML VIAL. ONE (11:16)
[2019-04-15] MEDS ORDERED: IOHEXOL 300 MG/ML 100ML VIAL. IART ONE (12:00)
[2019-04-15] MEDS ORDERED: NO ANTICOAGULANT THERAPY. MC PRN (12:15)
[2019-04-15] MEDS ORDERED: CONTRAST GIVEN. MC PRN (12:15)
--- NOTE | 2019-04-15 12:25 | CARD ---
MR#: [id number] Date of Study: 04/15/2019 Ordering Physician: MATTHEW TERAN, Referring Physician: MATTHEW TERAN, Tech: APPROVED REPORT EXAM Implantation of Biotronik dual-chamber automatic implantable cardioverter defibrillator (AICD) with d efibrillation thresholds measurement of the time of implantation SEDATION ADMINISTERED BY ANESTHESIA FLUORO TIME: 8.0 MIN DOSE: 4.3 GYCM2 CONTRAST: 10CC OMNI INDICATIONS Secondary prevention of sudden cardiac in a patient who presented with sudden cardiac arrest se condary to ventricular tachycardia/fibrillation. PROCEDURE After explaining the risks, benefits, and alternative options, informed consent was obtained from the patient. The patient was brought to the cardiac catheterization lab and the left chest and shoulder were prepp ed and draped in the usual fashion. 30 mL of 2% lidocaine was infiltrated into the skin and subcutaneous tissues for local anesthesia. An incision was made over the left infraclavicular fossa and using blunt dissection and cautery, a pock et was created. Venous access was obtained the left subclavian vein with the help off a venogram and 10.5 and 7 [place] sheaths inserted. A Biotronik bipolar active fixation right ventricular lead model Plexa ProMRI, serial #[id number] was a dvanced under fluoroscopy guidance and after several initial unsuccessful attempts at obtaining optim al parameters with RV apical placement, this lead was positioned on the interventricular septum. Subs equently, a Biotronik bipolar active fixation right atrial lead model Solia, serial #[id number] was pos itioned in the right atrial appendage under fluoroscopy guidance. The leads were secured into place a nd attached to a Biotronik dual-chamber AICD generator model Ilivia 7 DR-T, serial #[id number]. This wa s placed in the pocket that was subsequently closed in 3 layers. Hemostasis was secured. Ventricular fibrillation was then induced to check the defibrillation thresholds. Patient successfull y converted to sinus rhythm with 15 J shock therapy. The right ventricular lead showed a sensing ampl itude of 9.8 mV, impedance of 565 ohms and a threshold of 1.1 V. The right atrial lead showed a sensi ng amplitude of 4.1 mV, impedance of 485 ohms and a threshold of 1.0 V. Patient tolerated the procedu re well. There were no immediate complications. CONCLUSION Successful implantation of Biotronik dual-chamber automated implantable cardioverter defibrillator fo r secondary prevention of sudden cardiac in a patient who presented with cardiac arrest seconda ry to ventricular fibrillation/tachycardia. Defibrillation thresholds were measured at the time of im plantation. Signed by : Matthew Teran, Electronically Approved : 04/15/2019 12:25:05
--- NOTE | 2019-04-15 12:43 | RAD ---
Examination: PORTABLE CHEST 1V History: Pacemaker placement Comparison/Correlation: 04/14/2019 Portable Chest X-ray Exam, 04/15/2019 Portable Chest X-ray Exam Findings: Portable upright frontal view chest was obtained. Catheter tubing overlying the superior vena cava noted. Dual-lead left-sided ICD is present. The right lung apex was not fully included at its very superior aspect. No pneumothorax is seen. Small left pleural effusion is suspected. Retrocardiac opacification which may represent consolidation or atelectasis is present. Impression: There is no pneumothorax identified on this slightly limited exam. Right lung apex was not included at its very superior apical aspect. Left basilar retrocardiac opacification which may represent consolidation or atelectasis. This is similar to prior exam. Electronically signed by: Jorje Felipe MD (04/15/2019 12:41 PM) [facility]
--- NOTE | 2019-04-15 13:52 | NUR ---
Lasix 40mg IVP given by Christi MCCURDY in [employer]. Charted at "non-admin" due to patient being off unit. Medication was given, though. Patient returned from AICD placement. Tolerated well. No bleeding, arm in sling. See VS.
--- NOTE | 2019-04-15 15:56 | NUR ---
RN paged Wilfrido PATEL regarding patient's elevated BP. Order received for Labetalol PRN, Nitro paste Q6. See EMAR. Hydralazine and Metoprolol given previously.
[2019-04-15] MEDS: LABETALOL 20 MG/4 ML DISP.SYRIN. IVP PRN ×2 (16:04→18:03)
[2019-04-15] MEDS ORDERED: NITROGLYCERIN OINT 1 GM PACKET. TP SCH (18:00)
[2019-04-15] MEDS: NITROGLYCERIN PREMIX 250 ML IV PRN (21:10)
[2019-04-16] VITALS (20 sets, daily range): BP systolic 138–181; BP diastolic 66–86
[2019-04-16] MEDS: NITROGLYCERIN PREMIX 250 ML IV PRN ×3 (03:59→13:12)
[2019-04-16] MEDS: PIPERACILLIN/TAZOBACTAM 4.5 GM in IV NORMAL SALINE 100ML 100 ML IV SCH ×4 (05:47→23:03)
[2019-04-16] MEDS: HALOPERIDOL LACTATE 5 MG/ML VIAL. IVP PRN (05:48)
[2019-04-16] MEDS: METOPROLOL TARTRATE 5 MG/5 ML VIAL. IVP SCH ×4 (05:48→23:07)
[2019-04-16 06:41] LABS: HEMATOCRIT 24.4 % (36.0-47.0); HEMOGLOBIN 8.2 g/dL (12.0-15.5); RED BLOOD COUNT 2.83 x10^6/uL (3.50-5.40); RED CELL DISTRIBUTION WIDTH 13.4 % (11.5-14.5); WHITE BLOOD COUNT 11.1 x10^3/uL (4.0-11.0)
[2019-04-16 06:52] LABS: CALCIUM 8.2 mg/dL (8.5-10.1); CREATININE 0.7 mg/dL (0.6-1.0); GFR 85.4
[2019-04-16 06:56] LABS: POTASSIUM 2.8 mmol/L (3.5-5.1)
[2019-04-16] MEDS ORDERED: POTASSIUM CHLORIDE 20 MEQ TABLET.ER. PO SCH (08:00)
[2019-04-16] MEDS: POTASSIUM CHLORIDE 20MEQ 100 ML IV SCH ×4 (08:06→13:14)
[2019-04-16] MEDS: LABETALOL 20 MG/4 ML DISP.SYRIN. IVP PRN ×2 (08:13→14:53)
--- NOTE | 2019-04-16 08:52 | PDOC ---
PROGRESS NOTES Chief Complaint Chief Complaint Status post cardiac arrest Status post cardiac cath with no flow limiting lesions evident AICD placement on 04/15/2019 Arrhythmia, patient will need AICD once more stable. Delirium, patient can be easily redirected, no focal deficits, no evidence of seizure activity on EEG History of essential hypertension History of dyslipidemia bracycardia most likely due to amiodarone Leukocytosis reactive most likely but will cover with ATB for possible aspiration pneumonia Plan: supportive measures ACID care as per is consultant Monitor over the next 24 hours Zosyn Continue following cardiology recommendations regarding meds replace potassium patient may be moved out of the ICU once cleared by consultants History of Present Illness History of Present Illness Patient tolerated procedure well, patient still having episodes of intermittent agitation, overall stable. Vitals Vitals Vital Signs Date Time Temp Pulse Resp B/P (MAP) Pulse Ox O2 Delivery O2 Flow Rate FiO2 04/16/19 08:15 139/83 (101) 04/16/19 08:13 121 04/16/19 08:00 99.9 16 93 Nasal Cannula 3.0 99.9 Physical Exam General: Other (remains intubated) Heart: Regular rate Lungs: Clear Abdomen: Normal bowel sounds Extremities: No cyanosis, No edema Skin: No significant lesion Labs LABS Laboratory Tests Test 04/16/19 06:30 White Blood Count 11.1 x10^3/uL (4.0-11.0) Red Blood Count 2.83 x10^6/uL (3.50-5.40) Hemoglobin 8.2 g/dL (12.0-15.5) Hematocrit 24.4 % (36.0-47.0) Mean Corpuscular Volume 86 fL (79-100) Mean Corpuscular Hemoglobin 29 pg (25-35) Mean Corpuscular Hemoglobin Concent 34 g/dL (31-37) Red Cell Distribution Width 13.4 % (11.5-14.5) Platelet Count 217 x10^3/uL (140-400) Sodium Level 147 mmol/L (136-145) Potassium Level 2.8 mmol/L (3.5-5.1) Chloride Level 111 mmol/L (98-107) Carbon Dioxide Level 26 mmol/L (21-32) Anion Gap 10 (6-14) Blood Urea Nitrogen 22 mg/dL (7-20) Creatinine 0.7 mg/dL (0.6-1.0) Estimated GFR (Cockcroft-Gault) 85.4 Glucose Level 158 mg/dL (70-99) Calcium Level 8.2 mg/dL (8.5-10.1) Assessment and Plan Assessmemt and Plan Problems Medical Problems: (1) Acute respiratory acidosis Status: Acute (2) Cardiorespiratory arrest Status: Acute (3) Elevated d-dimer Status: Acute (4) Elevated troponin Status: Acute (5) Hyperglycemia Status: Acute (6) Hypokalemia Status: Acute (7) NSTEMI (non-ST elevated myocardial infarction) Status: Acute (8) Pneumonia Status: Acute (9) Sepsis Status: Acute (10) Severe sepsis Status: Acute Comment Review of Relevant I have reviewed the following items fracisco (where applicable) has been applied. Labs Laboratory Tests Test 04/14/19 14:10 04/15/19 05:40 04/16/19 06:30 Sodium Level 142 mmol/L (136-145) 143 mmol/L (136-145) 147 mmol/L (136-145) Potassium Level 3.4 mmol/L (3.5-5.1) 3.1 mmol/L (3.5-5.1) 2.8 mmol/L (3.5-5.1) Chloride Level 108 mmol/L (98-107) 109 mmol/L (98-107) 111 mmol/L (98-107) Carbon Dioxide Level 24 mmol/L (21-32) 23 mmol/L (21-32) 26 mmol/L (21-32) Anion Gap 10 (6-14) 11 (6-14) 10 (6-14) Blood Urea Nitrogen 13 mg/dL (7-20) 16 mg/dL (7-20) 22 mg/dL (7-20) Creatinine 0.8 mg/dL (0.6-1.0) 0.7 mg/dL (0.6-1.0) 0.7 mg/dL (0.6-1.0) Estimated GFR (Cockcroft-Gault) 73.2 85.4 85.4 Glucose Level 89 mg/dL (70-99) 108 mg/dL (70-99) 158 mg/dL (70-99) Calcium Level 8.2 mg/dL (8.5-10.1) 8.2 mg/dL (8.5-10.1) 8.2 mg/dL (8.5-10.1) Magnesium Level 1.8 mg/dL (1.8-2.4) 2.1 mg/dL (1.8-2.4) White Blood Count 13.1 x10^3/uL (4.0-11.0) 11.1 x10^3/uL (4.0-11.0) Red Blood Count 2.94 x10^6/uL (3.50-5.40) 2.83 x10^6/uL (3.50-5.40) Hemoglobin 8.7 g/dL (12.0-15.5) 8.2 g/dL (12.0-15.5) Hematocrit 25.5 % (36.0-47.0) 24.4 % (36.0-47.0) Mean Corpuscular Volume 87 fL (79-100) 86 fL (79-100) Mean Corpuscular Hemoglobin 30 pg (25-35) 29 pg (25-35) Mean Corpuscular Hemoglobin Concent 34 g/dL (31-37) 34 g/dL (31-37) Red Cell Distribution Width 13.0 % (11.5-14.5) 13.4 % (11.5-14.5) Platelet Count 157 x10^3/uL (140-400) 217 x10^3/uL (140-400) Neutrophils (%) (Auto) 84 % (31-73) Lymphocytes (%) (Auto) 7 % (24-48) Monocytes (%) (Auto) 9 % (0-9) Eosinophils (%) (Auto) 0 % (0-3) Basophils (%) (Auto) 0 % (0-3) Neutrophils # (Auto) 11.0 x10^3/uL (1.8-7.7) Lymphocytes # (Auto) 0.9 x10^3/uL (1.0-4.8) Monocytes # (Auto) 1.1 x10^3/uL (0.0-1.1) Eosinophils # (Auto) 0.0 x10^3/uL (0.0-0.7) Basophils # (Auto) 0.0 x10^3/uL (0.0-0.2) Laboratory Tests Test 1/22/20 06:30 White Blood Count 11.1 x10^3/uL (4.0-11.0) Red Blood Count 2.83 x10^6/uL (3.50-5.40) Hemoglobin 8.2 g/dL (12.0-15.5) Hematocrit 24.4 % (36.0-47.0) Mean Corpuscular Volume 86 fL (79-100) Mean Corpuscular Hemoglobin 29 pg (25-35) Mean Corpuscular Hemoglobin Concent 34 g/dL (31-37) Red Cell Distribution Width 13.4 % (11.5-14.5) Platelet Count 217 x10^3/uL (140-400) Sodium Level 147 mmol/L (136-145) Potassium Level 2.8 mmol/L (3.5-5.1) Chloride Level 111 mmol/L (98-107) Carbon Dioxide Level 26 mmol/L (21-32) Anion Gap 10 (6-14) Blood Urea Nitrogen 22 mg/dL (7-20) Creatinine 0.7 mg/dL (0.6-1.0) Estimated GFR (Cockcroft-Gault) 85.4 Glucose Level 158 mg/dL (70-99) Calcium Level 8.2 mg/dL (8.5-10.1) Microbiology 04/13/19 - Final, Resulted 04/13/19 - Final, Resulted 04/13/19 - Final, Resulted 04/13/19 - Preliminary, Resulted 04/13/19 - Preliminary, Resulted 04/13/19 - Preliminary, Resulted 04/13/19 Gram Stain Evaluation - Final, Resulted 04/13/19 Sputum Culture, Resulted Pending 04/10/19 Blood Culture - Final, Complete NO GROWTH AFTER 5 DAYS Medications Current Medications Norepinephrine Bitartrate 8 mg/ Dextrose 258 ml @ 13.855 mls/ hr 1X ONCE IV Last administered on 04/10/19at 12:40; Start 04/10/19 at 12:30; Stop 04/10/19 at 12:31; Status DC Amiodarone HCl 450 mg/Dextrose 259 ml @ 33 mls/hr 1X ONCE IV Last administered on 04/10/19at 12:55; Start 04/10/19 at 12:45; Stop 04/10/19 at 20:35; Status DC Sodium Chloride 1,000 ml @ 1,000 mls/hr Q1H IV Last administered on 04/10/19at 12:20; Start 04/10/19 at 12:13; Stop 04/10/19 at 13:12; Status DC Midazolam HCl 50 mg/Sodium Chloride 50 ml @ 1 mls/hr 1X ONCE IV Last administered on 04/10/19at 13:35; Start 04/10/19 at 13:15; Stop 04/11/19 at 13:55; Status DC Potassium Chloride/Water 100 ml @ 50 mls/hr 1X ONCE IV ; Start 04/10/19 at 13:15; Stop 04/10/19 at 13:16; Status DC Etomidate (Amidate) 20 mg STK-MED ONCE IV ; Start 04/10/19 at 13:14; Stop 04/10/19 at 13:14; Status DC Midazolam HCl (Versed) 5 mg STK-MED ONCE .ROUTE ; Start 04/10/19 at 13:15; Stop 04/10/19 at 13:15; Status DC Succinylcholine Chloride (Anectine) 200 mg STK-MED ONCE .ROUTE ; Start 04/10/19 at 13:15; Stop 04/10/19 at 13:15; Status DC Potassium Chloride/Water 100 ml @ 100 mls/hr Q1H IV ; Start 04/10/19 at 14:00; Stop 04/10/19 at 15:59; Status DC Sodium Bicarbonate (Sodium Bicarb Adult 8.4% Syr) 50 meq 1X ONCE IV Last administered on 04/10/19at 17:17; Start 04/10/19 at 13:30; Stop 04/10/19 at 13:31; Status DC Sodium Chloride 1,000 ml @ 150 mls/hr Q6H40M IV ; Start 04/10/19 at 13:28; Stop 04/11/19 at 00:46; Status DC Piperacillin Sod/ Tazobactam Sod 3.375 gm/Sodium Chloride 50 ml @ 100 mls/hr 1X ONCE IV Last administered on 04/10/19at 18:35; Start 04/10/19 at 13:45; Stop 04/10/19 at 14:14; Status DC Vancomycin HCl 250 ml @ 250 mls/hr 1X ONCE IV ; Start 04/10/19 at 13:45; Stop 04/10/19 at 14:44; Status UNV Sodium Chloride 1,000 ml @ 1,000 mls/hr 1X ONCE IV Last administered on 04/10/19at 13:45; Start 04/10/19 at 13:45; Stop 04/10/19 at 14:44; Status DC Vancomycin HCl 1.75 gm/Sodium Chloride 500 ml @ 250 mls/hr 1X ONCE IV ; Start 04/10/19 at 14:00; Stop 04/10/19 at 15:59; Status DC Iodixanol (Visipaque 320) 100 ml STK-MED ONCE .ROUTE ; Start 04/10/19 at 14:01; Stop 04/10/19 at 14:02; Status DC Heparin Sodium/ Sodium Chloride 500 ml @ As Directed STK-MED ONCE .ROUTE ; Start 04/10/19 at 14:02; Stop 04/10/19 at 14:02; Status DC Lidocaine HCl (Xylocaine-Mpf 1% 2ml Vial) 2 ml STK-MED ONCE .ROUTE ; Start 04/10/19 at 14:02; Stop 04/10/19 at 14:02; Status DC Lidocaine HCl (Lidocaine 1% 20ml Vial) 20 ml STK-MED ONCE .ROUTE ; Start 04/10/19 at 14:03; Stop 04/10/19 at 14:04; Status DC Heparin Sodium (Porcine) (Heparin Sodium) 10,000 unit STK-MED ONCE .ROUTE ; Start 04/10/19 at 15:16; Stop 04/10/19 at 15:16; Status DC Heparin Sodium/ Sodium Chloride (HEPARIN for ARTERIAL LINE FLUSH) 1,000 unit 1X ONCE IART Last administered on 04/10/19at 15:42; Start 04/10/19 at 15:30; Stop 04/10/19 at 23:39; Status DC Iodixanol (Visipaque 320) 104 ml 1X ONCE IART Last administered on 04/10/19at 15:42; Start 04/10/19 at 15:30; Stop 04/10/19 at 23:39; Status DC Heparin Sodium (Porcine) (Heparin Sodium) 4,000 unit 1X ONCE IV Last administered on 04/10/19at 15:42; Start 04/10/19 at 15:30; Stop 04/10/19 at 23:39; Status DC Lidocaine HCl (Lidocaine 1% 20ml Vial) 20 ml 1X ONCE INJ Last administered on 04/10/19at 15:42; Start 04/10/19 at 15:30; Stop 04/10/19 at 23:39; Status DC Atropine Sulfate (ATROPINE 1mg SYRINGE) 1 mg 1X ONCE IV Last administered on 04/10/19at 12:42; Start 04/10/19 at 12:42; Stop 04/10/19 at 15:42; Status DC Midazolam HCl (Versed) 5 mg 1X ONCE IV Last administered on 04/10/19at 13:15; Start 04/10/19 at 13:15; Stop 04/10/19 at 15:42; Status DC Vecuronium [place] (Norcuron Bolus) 10 mg STK-MED ONCE IV ; Start 04/10/19 at 16:54; Stop 04/10/19 at 16:55; Status DC Fentanyl Citrate (Fentanyl 2ml Vial) 100 mcg STK-MED ONCE .ROUTE ; Start 04/10/19 at 16:55; Stop 04/10/19 at 16:56; Status DC Fentanyl Citrate (Fentanyl 2ml Vial) 100 mcg 1X ONCE IV Last administered on 04/10/19at 17:16; Start 04/10/19 at 17:00; Stop 04/10/19 at 17:01; Status DC Midazolam HCl (Versed) 2 mg 1X ONCE IV ; Start 04/10/19 at 17:00; Stop 04/10/19 at 17:01; Status DC Magnesium Sulfate/ Dextrose 100 ml @ 100 mls/hr 1X ONCE IV Last administered on 04/10/19at 17:16; Start 04/10/19 at 18:00; Stop 04/10/19 at 18:59; Status DC Buspirone HCl (Buspar) 30 mg Q8HRS NG Last administered on 04/11/19at 21:13; Start 04/10/19 at 17:00; Stop 04/12/19 at 05:17; Status DC Acetaminophen (Tylenol) 650 mg Q4H NG Last administered on 04/12/19at 00:27; Start 04/10/19 at 17:00; Stop 04/12/19 at 03:15; Status DC Artificial Tears (Artificial Tears) 1 drop Q6HRS OU Last administered on 04/12/19at 00:27; Start 04/10/19 at 18:00; Stop 04/12/19 at 05:17; Status DC Artificial Tears (Artificial Tears) 1 drop PRN Q15MIN PRN OU DRY EYE; Start 04/10/19 at 17:00 Heparin Sodium (Porcine) (Heparin Sodium) 5,000 unit BID SQ ; Start 04/10/19 at 21:00; Status Cancel Pantoprazole Sodium (PROTONIX VIAL for IV PUSH) 40 mg DAILY IVP Last adminis tered on 04/15/19at 09:54; Start 04/10/19 at 18:00 Fentanyl Citrate 30 ml @ 0 mls/hr CONT PRN IV PER PROTOCOL. Last administered on 04/10/19at 17:30; Start 04/10/19 at 17:00; Stop 04/14/19 at 13:51; Status DC Propofol 100 ml @ 0 mls/hr CONT PRN IV PER PROTOCOL. Last administered on 04/14/19at 04:56; Start 04/10/19 at 17:00; Stop 04/14/19 at 13:51; Status DC Midazolam HCl 50 mg/Sodium Chloride 50 ml @ 0 mls/hr CONT PRN IV PER PROTOCOL. Last administered on 04/12/19at 00:27; Start 04/10/19 at 17:00; Stop 04/14/19 at 13:51; Status DC Vecuronium [place] (Norcuron Bolus) 7 mg PRN Q1HR PRN IV SHIVERING Last administered on 04/11/19at 15:48; Start 04/10/19 at 17:00; Stop 04/14/19 at 13:51; Status DC Heparin Sodium/ Dextrose 250 ml @ 0 mls/hr CONT PRN IV PER PROTOCOL; Start 04/10/19 at 17:30; Stop 04/10/19 at 23:42; Status DC Heparin Sodium (Porcine) (Heparin Sodium) 2,150 unit PRN Q6HRS PRN IV FOR UFH LEVEL LESS THAN 0.2; Start 04/10/19 at 17:30; Stop 04/10/19 at 23:39; Status DC Heparin Sodium (Porcine) (Heparin Sodium) 1,050 unit PRN Q6HRS PRN IV FOR UFH LEVEL 0.2 - 0.29; Start 04/10/19 at 17:30; Stop 04/10/19 at 23:39; Status DC Hydralazine HCl (Apresoline Inj) 10 mg PRN Q6HRS PRN IVP ELEVATED BP, SEE COMMENTS; Start 04/10/19 at 18:00; Stop 04/14/19 at 13:00; Status DC Hydralazine HCl (Apresoline Inj) 20 mg STK-MED ONCE .ROUTE ; Start 04/10/19 at 17:56; Stop 04/10/19 at 17:56; Status DC Iohexol (Omnipaque 350 Mg/ml) 75 ml 1X ONCE IV Last administered on 04/10/19at 18:45; Start 04/10/19 at 18:45; Stop 04/10/19 at 18:46; Status DC Insulin Human Regular 100 unit/ Sodium Chloride 101 ml @ 0 mls/hr CONT PRN IV SEE I/O RECORD Last administered on 04/11/19at 10:23; Start 04/10/19 at 19:30; Stop 04/12/19 at 03:15; Status DC Magnesium Sulfate/ Dextrose 100 ml @ 100 mls/hr PRN DAILY PRN IV MAG level 2.4-3.0mg/dl Last administered on 04/11/19at 08:44; Start 04/10/19 at 20:30 Potassium Chloride/Water 100 ml @ 100 mls/hr PRN DAILY PRN IV K+ level 3.1- 3.4mEq/L Last administered on 04/11/19at 06:50; Start 04/10/19 at 20:30 Magnesium Sulfate/ Dextrose 100 ml @ 100 mls/hr 1X PRN IV MAG level 2.4- 3.0mg/dl Last administered on 04/10/19at 22:17; Start 04/10/19 at 22:00; Stop 04/11/19 at 01:56; Status DC Potassium Chloride/Water 100 ml @ 100 mls/hr 1X PRN IV K+ level 3.1-3.4mEq/L Last administered on 04/10/19at 22:16; Start 04/10/19 at 22:00; Stop 04/11/19 at 01:55; Status DC Norepinephrine Bitartrate 8 mg/ Dextrose 258 ml @ 13.855 mls/ hr CONT PRN IV PER PROTOCOL Last administered on 04/13/19at 13:22; Start 04/10/19 at 22:45; Stop 04/14/19 at 13:51; Status DC Heparin Sodium/ Dextrose 250 ml @ 0 mls/hr CONT PRN IV PER PROTOCOL Last administered on 04/11/19at 00:43; Start 04/10/19 at 23:45; Stop 04/11/19 at 09:36; Status DC Heparin Sodium (Porcine) (Heparin Sodium) 1,800 unit PRN Q6HRS PRN IV FOR UFH LEVEL LESS THAN 0.2; Start 04/10/19 at 23:45; Stop 04/11/19 at 09:54; Status DC Amiodarone HCl 450 mg/Dextrose 259 ml @ 0 mls/hr CONT PRN IV SEE I/O RECORD Last administered on 04/12/19at 11:52; Start 04/11/19 at 00:00; Stop 04/11/19 at 19:36; Status DC Dextrose/Sodium Chloride 1,000 ml @ 75 mls/hr [id number] IV Last administered on 04/11/19at 01:57; Start 04/11/19 at 01:00; Stop 04/11/19 at 10:53; Status DC Potassium Chloride/Water 100 ml @ 50 mls/hr PRN DAILY PRN IV K+ level less than 3.1 mEq/l; Start 04/11/19 at 02:00; Status Cancel Potassium Chloride/Water 100 ml @ 100 mls/hr PRN Q1HR PRN IV K<3.1; Start 04/11/19 at 02:00 Magnesium Sulfate/ Dextrose 100 ml @ 100 mls/hr PRN DAILY PRN IV MAG level 2.4-3.0mg/dl; Start 04/11/19 at 06:45; Status UNV Potassium Chloride/Water 100 ml @ 100 mls/hr PRN DAILY PRN IV K+ level 3.1- 3.4mEq/L; Start 04/11/19 at 06:45; Status UNV Atropine Sulfate (ATROPINE 0.5mg SYRINGE) 0.25 mg 1X ONCE IM ; Start 04/11/19 at 09:45; Stop 04/11/19 at 09:38; Status DC Atropine Sulfate (ATROPINE 1mg SYRINGE) 0.25 mg 1X ONCE IM Last administered on 04/11/19at 09:55; Start 04/11/19 at 09:45; Stop 04/11/19 at 09:46; Status DC Dopamine HCl/ Dextrose 250 ml @ 6.676 mls/ hr CONT PRN IV SEE I/O RECORD Last administered on 04/12/19at 20:21; Start 04/11/19 at 10:00; Stop 04/14/19 at 13:51; Status DC Sodium Chloride 1,000 ml @ 75 mls/hr [id number] IV Last administered on 04/11/19at 19:36; Start 04/11/19 at 12:00; Stop 04/13/19 at 15:18; Status DC Heparin Sodium (Porcine) (Heparin Sodium) 5,000 unit BID SQ Last administered on 04/14/19at 21:19; Start 04/11/19 at 21:00; Stop 04/15/19 at 12:18; Status DC Atropine Sulfate (ATROPINE 1mg SYRINGE) 1 mg STK-MED ONCE .ROUTE ; Start 04/10/19 at 15:16; Stop 04/11/19 at 15:16; Status DC Amiodarone HCl 450 mg/Dextrose 259 ml @ 33 mls/hr CONT PRN PRN IV SEE I/O RECORD Last administered on 04/13/19at 04:37; Start 04/12/19 at 08:15; Stop 04/14/19 at 13:51; Status DC Acetaminophen (Tylenol) 650 mg PRN Q6HRS PRN PEG MILD PAIN / TEMP Last administered on 04/13/19at 00:02; Start 04/12/19 at 11:30 Dexmedetomidine HCl 400 mcg/ Sodium Chloride 100 ml @ 0 mls/hr CONT PRN IV ANXIETY / AGITATION Last administered on 04/15/19at 05:23; Start 04/13/19 at 08:00 Piperacillin Sod/ Tazobactam Sod 4.5 gm/Sodium Chloride 100 ml @ 200 mls/hr Q6HRS IV Last administered on 04/16/19at 05:47; Start 04/13/19 at 09:00 Sodium Chloride 1,000 ml @ 75 mls/hr [id number] IV ; Start 04/13/19 at 15:30; Status Cancel Sodium Chloride 1,000 ml @ 75 mls/hr [id number] IV Last administered on 04/14/19at 05:05; Start 04/13/19 at 15:45; Stop 04/14/19 at 18:32; Status DC Haloperidol Lactate (Haldol Inj) 2 mg PRN Q6HRS PRN IVP AGITATION 3RD CHOICE Last administered on 04/16/19at 05:48; Start 04/14/19 at 10:30 Furosemide (Lasix) 40 mg 1X ONCE IVP Last administered on 04/14/19at 13:19; Start 04/14/19 at 13:00; Stop 04/14/19 at 13:01; Status DC Hydralazine HCl (Apresoline Inj) 10 mg PRN Q4HRS PRN IVP ELEVATED BP, SEE COMMENTS Last administered on 04/15/19at 19:34; Start 04/14/19 at 13:00 Atropine Sulfate (ATROPINE 1mg SYRINGE) 1 mg STK-MED ONCE .ROUTE ; Start 04/10/19 at 10:00; Stop 04/14/19 at 13:34; Status DC Calcium Chloride 1,000 mg STK-MED ONCE IV ; Start 04/10/19 at 10:00; Stop 04/14/19 at 13:34; Status DC Metoprolol Tartrate (Lopressor Vial) 5 mg Q6HRS IVP Last administered on 04/16/19at 05:48; Start 04/14/19 at 14:30 Magnesium Sulfate 50 ml @ 25 mls/hr 1X ONCE IV Last administered on 04/14/19at 15:39; Start 04/14/19 at 15:00; Stop 04/14/19 at 16:59; Status DC Potassium Chloride/Water 100 ml @ 100 mls/hr Q1H IV Last administered on 04/14/19at 16:46; Start 04/14/19 at 15:00; Stop 04/14/19 at 16:59; Status DC Amiodarone HCl 450 mg/Dextrose 259 ml @ 17 mls/hr CONT PRN IV SEE I/O RECORD Last administered on 04/15/19at 05:22; Start 04/14/19 at 15:15; Stop 04/15/19 at 05:23; Status DC Lorazepam (Ativan Inj) 0.5 mg PRN Q4HRS PRN IVP ANXIETY / AGITATION; Start 04/15/19 at 08:15 Lorazepam (Ativan Inj) 1 mg PRN Q4HRS PRN IVP ANXIETY / AGITATION Last administered on 04/15/19at 23:51; Start 04/15/19 at 08:30 Potassium Chloride/Water 100 ml @ 100 mls/hr Q1H IV Last administered on 04/15/19at 13:05; Start 04/15/19 at 09:00; Stop 04/15/19 at 10:59; Status DC Lidocaine/ Epinephrine (LIDOCAINE 2%-EPI 1:100,000 multi-dose) 20 ml 1X ONCE IJ Last administered on 04/15/19at 11:09; Start 04/15/19 at 09:00; Stop 04/15/19 at 09:06; Status DC Bacitracin [id number] unit/Sodium Chloride 250 ml @ 0 mls/hr 1X ONCE IRR Last administered on 04/15/19at 11:45; Start 04/15/19 at 09:00; Stop 04/15/19 at 09:06; Status DC Cefazolin Sodium (Ancef) 1 gm 1X ONCE IVP Last administered on 04/15/19at 11:07; Start 04/15/19 at 09:00; Stop 04/15/19 at 09:06; Status DC Midazolam HCl (Versed) 2 mg STK-MED ONCE .ROUTE ; Start 04/15/19 at 09:38; Stop 04/15/19 at 09:38; Status DC Propofol 50 ml @ As Directed STK-MED ONCE IV ; Start 04/15/19 at 09:40; Stop 04/15/19 at 09:40; Status DC Furosemide (Lasix) 40 mg 1X ONCE IVP ; Start 04/15/19 at 10:15; Stop 04/15/19 at 10:16; Status DC Furosemide (Lasix) 40 mg STK-MED ONCE .ROUTE ; Start 04/15/19 at 10:03; Stop 04/15/19 at 10:03; Status DC Lidocaine/ Epinephrine (LIDOCAINE 2%-EPI 1:100,000 multi-dose) 20 ml STK-MED ONCE .ROUTE ; Start 04/15/19 at 10:08; Stop 04/15/19 at 10:09; Status DC Iohexol (Omnipaque 300 Mg/ml) 100 ml STK-MED ONCE .ROUTE ; Start 04/15/19 at 11:16; Stop 04/15/19 at 11:16; Status DC Iohexol (Omnipaque 300 Mg/ml) 10 ml 1X ONCE IART Last administered on 04/15/19at 11:17; Start 04/15/19 at 12:00; Stop 04/15/19 at 12:05; Status DC Info (CONTRAST GIVEN -- Rx MONITORING) 1 each PRN DAILY PRN MC SEE COMMENTS; Start 04/15/19 at 12:15; Stop 04/17/19 at 12:14 Info (No Anticoagulant Therapy) 1 ea CONT PRN PRN MC PER PROTOCOL; Start 04/15/19 at 12:15 Cefazolin Sodium (Ancef) 1 gm 1X ONCE IVP ; Start 04/15/19 at 12:30; Stop 04/15/19 at 12:31; Status UNV Acetaminophen (Tylenol) 650 mg PRN Q6HRS PRN PO MILD PAIN 1-3; Start 04/15/19 at 12:15 Labetalol HCl (Normodyne Iv Push) 20 mg PRN Q2HR PRN IVP HYPERTENSION Last administered on 04/16/19at 08:13; Start 04/15/19 at 16:00 Nitroglycerin (Nitro-Bid Oint) 1 inch Q6HRS TP Last administered on 04/15/19at 17:05; Start 04/15/19 at 18:00; Stop 04/15/19 at 20:46; Status DC Nitroglycerin/ Dextrose 250 ml @ 1.5 mls/hr CONT PRN IV SEE I/O RECORD Last administered on 04/16/19at 08:06; Start 04/15/19 at 20:45 Potassium Chloride (Klor-Con) 40 meq Q2H PO ; Start 04/16/19 at 08:00; Stop 04/16/19 at 07:52; Status DC Potassium Chloride/Water 100 ml @ 100 mls/hr Q1H IV Last administered on 04/16/19at 08:06; Start 04/16/19 at 08:00; Stop 04/16/19 at 09:59 Active Scripts Active Reported Celebrex (Celecoxib) 100 Mg Capsule 1 Cap PO BID Verapamil Er (Verapamil Hcl) 240 Mg Cap24h.pel 1 Cap PO DAILY Vitals/I & O Vital Sign - Last 24 Hours 04/15/19 04/15/19 04/15/19 04/15/19 09:00 09:55 10:00 12:25 Pulse 74 70 76 94 Resp 19 22 20 B/P (MAP) 171/84 (113) 176/88 191/94 (126) 177/80 Pulse Ox 96 98 98 O2 Delivery Nasal Cannula Nasal Cannula Nasal Cannula O2 Flow Rate 4.0 4.0 4 04/15/19 04/15/19 04/15/19 04/15/19 12:25 12:40 13:00 13:00 Temp 98.5 100.4 98.5 100.4 Pulse 94 94 92 Resp 20 20 23 B/P (MAP) 184/75 174/80 189/79 (115) Pulse Ox 95 95 99 O2 Delivery Nasal Cannula Nasal Cannula Nasal Cannula Nasal Cannula O2 Flow Rate 4 4 4 4.0 04/15/19 04/15/19 04/15/19 04/15/19 13:10 13:15 13:30 13:45 Pulse 92 86 76 76 Resp 21 18 20 B/P (MAP) 189/79 176/78 (110) 181/86 (117) 190/90 (123) Pulse Ox 98 99 99 O2 Delivery Nasal Cannula Nasal Cannula Nasal Cannula O2 Flow Rate 4.0 4.0 4.0 04/15/19 04/15/19 04/15/19 04/15/19 14:06 15:00 15:38 16:00 Pulse 90 92 Resp 24 17 B/P (MAP) 191/89 165/62 (96) 180/79 (112) Pulse Ox 98 97 O2 Delivery Nasal Cannula Nasal Cannula Nasal Cannula O2 Flow Rate 4.0 4.0 4.0 04/15/19 04/15/19 04/15/19 04/15/19 16:04 17:00 17:05 17:05 Temp 100.6 100.6 Pulse 88 81 77 77 Resp 21 B/P (MAP) 184/79 168/70 (102) 184/76 184/79 Pulse Ox 98 O2 Delivery Nasal Cannula O2 Flow Rate 2.0 04/15/19 04/15/19 04/15/19 04/15/19 18:00 18:03 19:30 19:34 Temp 100.0 100.0 Pulse 70 78 72 71 Resp 19 28 B/P (MAP) 160/71 (100) 181/85 177/70 (105) 177/70 Pulse Ox 97 97 O2 Delivery Nasal Cannula Nasal Cannula O2 Flow Rate 2.0 2.0 04/15/19 04/15/19 04/15/19 04/15/19 20:00 20:00 21:10 21:25 Temp 100.2 100.2 Pulse 77 76 80 Resp 28 23 B/P (MAP) 183/76 (111) 172/70 (104) 174/79 (110) Pulse Ox 98 98 O2 Delivery Nasal Cannula Nasal Cannula Nasal Cannula O2 Flow Rate 2.0 3.0 3.0 04/15/19 04/15/19 04/15/19 04/15/19 21:30 21:45 21:55 22:15 Pulse 80 76 78 77 Resp B/P (MAP) 176/79 (111) 170/81 (110) 162/84 (110) 182/75 (110) Pulse Ox 97 O2 Delivery Nasal Cannula O2 Flow Rate 3.0 04/15/19 04/15/19 04/15/19 04/15/19 22:20 22:30 22:45 23:03 Pulse 85 77 80 79 Resp B/P (MAP) 185/80 (115) 173/71 (105) 174/80 (111) 174/75 (108) Pulse Ox 96 O2 Delivery Nasal Cannula O2 Flow Rate 3.0 04/15/19 04/15/19 04/15/19 04/15/19 23:16 23:30 23:53 23:53 Temp 99.9 99.9 Pulse 83 88 81 81 Resp B/P (MAP) 173/79 (110) 173/75 (107) 168/72 168/72 (104) Pulse Ox 97 95 O2 Delivery Nasal Cannula Nasal Cannula O2 Flow Rate 3.0 3.0 04/16/19 04/16/19 04/16/19 04/16/19 00:00 00:15 01:06 01:30 Pulse 70 78 74 Resp 22 B/P (MAP) 140/67 (91) 145/66 (92) 167/75 (105) Pulse Ox 96 O2 Delivery Nasal Cannula Nasal Cannula O2 Flow Rate 3.0 3.0 04/16/19 04/16/19 04/16/19 04/16/19 01:45 02:26 02:44 03:00 Pulse 80 92 79 79 B/P (MAP) 138/72 (94) 165/67 (99) 160/82 (108) 165/74 (104) Pulse Ox 96 96 94 93 O2 Delivery Nasal Cannula Nasal Cannula Nasal Cannula Nasal Cannula O2 Flow Rate 3.0 3.0 3.0 3.0 04/16/19 04/16/19 04/16/19 04/16/19 03:19 04:30 05:00 05:48 Pulse 81 84 81 Resp 27 B/P (MAP) 169/69 (102) 169/74 (105) 169/74 Pulse Ox 92 93 O2 Delivery Nasal Cannula Nasal Cannula Nasal Cannula O2 Flow Rate 3.0 3.0 3.0 04/16/19 04/16/19 04/16/19 04/16/19 06:00 07:00 08:00 08:00 Temp 99.9 99.9 Pulse 68 74 130 Resp 21 14 16 B/P (MAP) 175/74 (107) 175/68 (103) 181/82 (115) Pulse Ox 91 92 93 O2 Delivery Nasal Cannula Nasal Cannula Nasal Cannula Nasal Cannula O2 Flow Rate 3.0 3.0 3.0 3.0 04/16/19 04/16/19 08:13 08:15 Pulse 121 B/P (MAP) 181/82 139/83 (101) Intake and Output 04/15/19 04/15/19 04/16/19 15:00 23:00 07:00 Intake Total 550 ml 277 ml 278 ml Output Total 1700 ml 470 ml 405 ml Balance -1150 ml -193 ml -127 ml BHARGAVI WILKS MD Apr 16, 2019 08:52
[2019-04-16] MEDS: PANTOPRAZOLE IV PUSH 40 MG VIAL. IVP SCH (09:18)
--- NOTE | 2019-04-16 09:36 | RAD ---
Single view of the chest. 04/16/2019 9:00 AM Indication: Respiratory failure Comparison: chest radiograph, yesterday Findings: Right internal jugular central line with tip in superior vena cava, similar to prior study. There is a dual-lead pacemaking/ICD device from a subclavian approach. There are small bilateral pleural effusions with underlying atelectasis. No pneumothorax. No osseous changes are noted in the interim. IMPRESSION: 1.Interval increase in small bilateral pleural effusions with underlying atelectasis. 2.Similar appearance of right IJ central line. Electronically signed by: Arthur Patrick MD (04/16/2019 9:34 AM) [id number]
[2019-04-16] MEDS ORDERED: NITROGLYCERIN OINT 1 GM PACKET. TP ONE (09:45)
[2019-04-16] MEDS: AMIODARONE 450 MG in IV DEXTROSE 5% 250 ML IV PRN ×2 (09:49→23:01)
[2019-04-16] MEDS ORDERED: AMIODARONE 150 MG in IV DEXTROSE 5% 100ML 100 ML IV ONE (10:00)
--- NOTE | 2019-04-16 10:00 | NUR ---
Patient in a-fib, correcting electrolytes and started on amiodarone gtt, loading dose administered and gtt started at 0.5 mg/hr per TEACHER OF THE EMOTIONALLY DISTURBED, and nitro switched to nitro paste Q6 to titrate off nitro gtt. at bedside.
--- NOTE | 2019-04-16 10:14 | PDOC ---
JUAN J GONZALEZ SPECIAL SERVICE REPRESENTATIVE 04/16/19 1014: CARDIO Progress Notes Date and Time Date of Service 04/16/2019 Time of Evaluation 0900 Subjective Subjective: Other (drowsy, post haldol ) Vitals Vitals Vital Signs Date Time Temp Pulse Resp B/P (MAP) Pulse Ox O2 Delivery O2 Flow Rate FiO2 04/16/19 10:00 110 20 150/82 (104) 96 Nasal Cannula 3.0 04/16/19 08:00 99.9 99.9 Weight Weight [ ] Input and Output Intake and Output Intake and Output 04/16/19 07:00 Intake Total 1105 ml Output Total 2575 ml Balance -1470 ml Intake Oral 100 ml IV Total 1005 ml Output Urine Total 2575 ml # Bowel Movements 1 Laboratory Labs Laboratory Tests Test 04/16/19 06:30 White Blood Count 11.1 x10^3/uL (4.0-11.0) Red Blood Count 2.83 x10^6/uL (3.50-5.40) Hemoglobin 8.2 g/dL (12.0-15.5) Hematocrit 24.4 % (36.0-47.0) Mean Corpuscular Volume 86 fL (79-100) Mean Corpuscular Hemoglobin 29 pg (25-35) Mean Corpuscular Hemoglobin Concent 34 g/dL (31-37) Red Cell Distribution Width 13.4 % (11.5-14.5) Platelet Count 217 x10^3/uL (140-400) Sodium Level 147 mmol/L (136-145) Potassium Level 2.8 mmol/L (3.5-5.1) Chloride Level 111 mmol/L (98-107) Carbon Dioxide Level 26 mmol/L (21-32) Anion Gap 10 (6-14) Blood Urea Nitrogen 22 mg/dL (7-20) Creatinine 0.7 mg/dL (0.6-1.0) Estimated GFR (Cockcroft-Gault) 85.4 Glucose Level 158 mg/dL (70-99) Calcium Level 8.2 mg/dL (8.5-10.1) Microbiology Micro Microbiology 04/13/19 - Final, Resulted 04/13/19 - Final, Resulted 04/13/19 - Final, Resulted 04/13/19 - Preliminary, Resulted 04/13/19 - Preliminary, Resulted 04/13/19 - Preliminary, Resulted 04/13/19 Gram Stain Evaluation - Final, Resulted 04/13/19 Sputum Culture, Resulted Pending 04/10/19 Blood Culture - Final, Complete NO GROWTH AFTER 5 DAYS Physical Exam HEENT: Neck Supple W Full Motion Chest: Symmetric LUNGS: Other (diminished bases ) Heart: irregularly irregular (AFIB RVR) Abdomen: Soft N/T Extremities: No Edema, No Calf Tenderness Neurology: confused (hallucinating ), other (Ox3 per RN prior to haldol) Other Exams left chest surgical incision with steristrips, dyr no oozing. Sling in place for LUE. Assessment Assessment 1. 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 No CAD/PE. 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 Acute respiratory failure secondary to #1. Extubated 04/14. Awaiting swallow eval 3. Accelerated HTN: improved 4. Severe sinus bradycardia, resolved 5. PAFIB: New, converted back to AFIB RVR this AM after fall in the setting of hypokalemia 6. Nontraumatic fall: fell out of bed 7. Metabolic encephalopathy 8 . Hyperlipidemia 9. AICD: S/P biotronik, dual chamber for secondary prevention of SCA. No complications. 10. Acute diastolic CHF: possibly induced by AFIB RVR. EF at 55% 11. Family hx of sudden : parents in their 60s with possible cardiac arrest 12. Hypokalemia: K 2.8 Recommendations 1. Lopressor IV, Amiodarone bolus and restart drip. ASA. 2. Replace K. check Mg and replace as warranted 3. 1:1 supervision if warranted. 4. Aggressive IS 5. Lasix PRN. Titrate off NTG drip and transition to NTG paste. Statin will transition to PO meds once PO is allowed. MATTHEW SPAIN MD 04/16/19 1616: CARDIO Progress Notes Assessment Assessment Patient seen and examined. Agree with AGENCY RECRUITER's assessment and plan. PAF back in sinus rhythm at this time. Continue amiodarone for antiarrhythmic therapy. s/p AICD implantation yesterday. Device check today showed normal function. Chest x-ray without any pneumothorax. Blood pressure better controlled. Continue current medical regimen. JUAN J GONZALEZ APRN Apr 16, 2019 10:14 MATTHEW SPAIN MD Apr 16, 2019 16:16
[2019-04-16] MEDS ORDERED: ASPIRIN RECTAL 300 MG SUPP. PR ONE (10:30)
--- NOTE | 2019-04-16 10:38 | PDOC ---
PROGRESS NOTES Assessment Problems Medical Problems: (1) Acute respiratory acidosis Status: Acute (2) Cardiorespiratory arrest Status: Acute (3) Elevated d-dimer Status: Acute (4) Elevated troponin Status: Acute (5) Hyperglycemia Status: Acute (6) Hypokalemia Status: Acute (7) NSTEMI (non-ST elevated myocardial infarction) Status: Acute (8) Pneumonia Status: Acute (9) Sepsis Status: Acute (10) Severe sepsis Status: Acute Cardiopulmonary arrest, down time estimated 8 minutes per her friend. CT head negative, EEG borderline study, mild slowing of background, no epileptic activity Anoxic encephalopathy. Ventricular tachycardia Cardiac shock. Respiratory failure. Pulmonary edema. Pulmonary interstitial infiltrate. Lactic acidosis. Hypokalemia, K+ 2.9 Hyperglycemia, glucose 300. DM. HTN. HLD. 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 Subjective None Objective Vital Signs Date Time Temp Pulse Resp B/P (MAP) Pulse Ox O2 Delivery O2 Flow Rate FiO2 04/16/19 10:00 110 20 150/82 (104) 96 Nasal Cannula 3.0 04/16/19 08:00 99.9 99.9 Intake and Output 04/16/19 06:59 Intake Total 1105 ml Output Total 2540 ml Balance -1435 ml Intake Oral 100 ml IV Total 1005 ml Output Urine Total 2540 ml # Bowel Movements 1 PHYSICAL EXAM Just got some sedation PERRL. EOMI. CN: no focal findings. Muscle tone: normal. Muscle strength: does not follow commands DTR: 2+ Plantar reflex: flexor Gait: not examined in bed. Sensory exam: not cooperative Cerebellar: not cooperative Review of Relevant I have reviewed the following items fracisco (where applicable) has been applied. Labs Laboratory Tests Test 04/14/19 14:10 04/15/19 05:40 04/16/19 06:30 Sodium Level 142 mmol/L (136-145) 143 mmol/L (136-145) 147 mmol/L (136-145) Potassium Level 3.4 mmol/L (3.5-5.1) 3.1 mmol/L (3.5-5.1) 2.8 mmol/L (3.5-5.1) Chloride Level 108 mmol/L (98-107) 109 mmol/L (98-107) 111 mmol/L (98-107) Carbon Dioxide Level 24 mmol/L (21-32) 23 mmol/L (21-32) 26 mmol/L (21-32) Anion Gap 10 (6-14) 11 (6-14) 10 (6-14) Blood Urea Nitrogen 13 mg/dL (7-20) 16 mg/dL (7-20) 22 mg/dL (7-20) Creatinine 0.8 mg/dL (0.6-1.0) 0.7 mg/dL (0.6-1.0) 0.7 mg/dL (0.6-1.0) Estimated GFR (Cockcroft-Gault) 73.2 85.4 85.4 Glucose Level 89 mg/dL (70-99) 108 mg/dL (70-99) 158 mg/dL (70-99) Calcium Level 8.2 mg/dL (8.5-10.1) 8.2 mg/dL (8.5-10.1) 8.2 mg/dL (8.5-10.1) Magnesium Level 1.8 mg/dL (1.8-2.4) 2.1 mg/dL (1.8-2.4) White Blood Count 13.1 x10^3/uL (4.0-11.0) 11.1 x10^3/uL (4.0-11.0) Red Blood Count 2.94 x10^6/uL (3.50-5.40) 2.83 x10^6/uL (3.50-5.40) Hemoglobin 8.7 g/dL (12.0-15.5) 8.2 g/dL (12.0-15.5) Hematocrit 25.5 % (36.0-47.0) 24.4 % (36.0-47.0) Mean Corpuscular Volume 87 fL (79-100) 86 fL (79-100) Mean Corpuscular Hemoglobin 30 pg (25-35) 29 pg (25-35) Mean Corpuscular Hemoglobin Concent 34 g/dL (31-37) 34 g/dL (31-37) Red Cell Distribution Width 13.0 % (11.5-14.5) 13.4 % (11.5-14.5) Platelet Count 157 x10^3/uL (140-400) 217 x10^3/uL (140-400) Neutrophils (%) (Auto) 84 % (31-73) Lymphocytes (%) (Auto) 7 % (24-48) Monocytes (%) (Auto) 9 % (0-9) Eosinophils (%) (Auto) 0 % (0-3) Basophils (%) (Auto) 0 % (0-3) Neutrophils # (Auto) 11.0 x10^3/uL (1.8-7.7) Lymphocytes # (Auto) 0.9 x10^3/uL (1.0-4.8) Monocytes # (Auto) 1.1 x10^3/uL (0.0-1.1) Eosinophils # (Auto) 0.0 x10^3/uL (0.0-0.7) Basophils # (Auto) 0.0 x10^3/uL (0.0-0.2) Laboratory Tests Test 04/16/19 06:30 White Blood Count 11.1 x10^3/uL (4.0-11.0) Red Blood Count 2.83 x10^6/uL (3.50-5.40) Hemoglobin 8.2 g/dL (12.0-15.5) Hematocrit 24.4 % (36.0-47.0) Mean Corpuscular Volume 86 fL (79-100) Mean Corpuscular Hemoglobin 29 pg (25-35) Mean Corpuscular Hemoglobin Concent 34 g/dL (31-37) Red Cell Distribution Width 13.4 % (11.5-14.5) Platelet Count 217 x10^3/uL (140-400) Sodium Level 147 mmol/L (136-145) Potassium Level 2.8 mmol/L (3.5-5.1) Chloride Level 111 mmol/L (98-107) Carbon Dioxide Level 26 mmol/L (21-32) Anion Gap 10 (6-14) Blood Urea Nitrogen 22 mg/dL (7-20) Creatinine 0.7 mg/dL (0.6-1.0) Estimated GFR (Cockcroft-Gault) 85.4 Glucose Level 158 mg/dL (70-99) Calcium Level 8.2 mg/dL (8.5-10.1) Microbiology 04/13/19 - Final, Resulted 04/13/19 - Final, Resulted 04/13/19 - Final, Resulted 04/13/19 - Preliminary, Resulted 04/13/19 - Preliminary, Resulted 04/13/19 - Preliminary, Resulted 04/13/19 Gram Stain Evaluation - Final, Resulted 04/13/19 Sputum Culture, Resulted Pending 04/10/19 Blood Culture - Final, Complete NO GROWTH AFTER 5 DAYS Medications Current Medications Norepinephrine Bitartrate 8 mg/ Dextrose 258 ml @ 13.855 mls/ hr 1X ONCE IV Last administered on 04/10/19at 12:40; Start 04/10/19 at 12:30; Stop 04/10/19 at 12:31; Status DC Amiodarone HCl 450 mg/Dextrose 259 ml @ 33 mls/hr 1X ONCE IV Last administered on 04/10/19at 12:55; Start 04/10/19 at 12:45; Stop 04/10/19 at 20:35; Status DC Sodium Chloride 1,000 ml @ 1,000 mls/hr Q1H IV Last administered on 04/10/19at 12:20; Start 04/10/19 at 12:13; Stop 04/10/19 at 13:12; Status DC Midazolam HCl 50 mg/Sodium Chloride 50 ml @ 1 mls/hr 1X ONCE IV Last administered on 04/10/19at 13:35; Start 04/10/19 at 13:15; Stop 04/11/19 at 13:55; Status DC Potassium Chloride/Water 100 ml @ 50 mls/hr 1X ONCE IV ; Start 04/10/19 at 13:15; Stop 04/10/19 at 13:16; Status DC Etomidate (Amidate) 20 mg STK-MED ONCE IV ; Start 04/10/19 at 13:14; Stop 04/10/19 at 13:14; Status DC Midazolam HCl (Versed) 5 mg STK-MED ONCE .ROUTE ; Start 04/10/19 at 13:15; Stop 04/10/19 at 13:15; Status DC Succinylcholine Chloride (Anectine) 200 mg STK-MED ONCE .ROUTE ; Start 04/10/19 at 13:15; Stop 04/10/19 at 13:15; Status DC Potassium Chloride/Water 100 ml @ 100 mls/hr Q1H IV ; Start 04/10/19 at 14:00; Stop 04/10/19 at 15:59; Status DC Sodium Bicarbonate (Sodium Bicarb Adult 8.4% Syr) 50 meq 1X ONCE IV Last administered on 04/10/19at 17:17; Start 04/10/19 at 13:30; Stop 04/10/19 at 13:31; Status DC Sodium Chloride 1,000 ml @ 150 mls/hr Q6H40M IV ; Start 04/10/19 at 13:28; Stop 04/11/19 at 00:46; Status DC Piperacillin Sod/ Tazobactam Sod 3.375 gm/Sodium Chloride 50 ml @ 100 mls/hr 1X ONCE IV Last administered on 04/10/19at 18:35; Start 04/10/19 at 13:45; Stop 04/10/19 at 14:14; Status DC Vancomycin HCl 250 ml @ 250 mls/hr 1X ONCE IV ; Start 04/10/19 at 13:45; Stop 04/10/19 at 14:44; Status UNV Sodium Chloride 1,000 ml @ 1,000 mls/hr 1X ONCE IV Last administered on 04/10/19at 13:45; Start 04/10/19 at 13:45; Stop 04/10/19 at 14:44; Status DC Vancomycin HCl 1.75 gm/Sodium Chloride 500 ml @ 250 mls/hr 1X ONCE IV ; Start 04/10/19 at 14:00; Stop 04/10/19 at 15:59; Status DC Iodixanol (Visipaque 320) 100 ml STK-MED ONCE .ROUTE ; Start 04/10/19 at 14:01; Stop 04/10/19 at 14:02; Status DC Heparin Sodium/ Sodium Chloride 500 ml @ As Directed STK-MED ONCE .ROUTE ; Start 04/10/19 at 14:02; Stop 04/10/19 at 14:02; Status DC Lidocaine HCl (Xylocaine-Mpf 1% 2ml Vial) 2 ml STK-MED ONCE .ROUTE ; Start 04/10/19 at 14:02; Stop 04/10/19 at 14:02; Status DC Lidocaine HCl (Lidocaine 1% 20ml Vial) 20 ml STK-MED ONCE .ROUTE ; Start 04/10/19 at 14:03; Stop 04/10/19 at 14:04; Status DC Heparin Sodium (Porcine) (Heparin Sodium) 10,000 unit STK-MED ONCE .ROUTE ; Start 04/10/19 at 15:16; Stop 04/10/19 at 15:16; Status DC Heparin Sodium/ Sodium Chloride (HEPARIN for ARTERIAL LINE FLUSH) 1,000 unit 1X ONCE IART Last administered on 04/10/19at 15:42; Start 04/10/19 at 15:30; Stop 04/10/19 at 23:39; Status DC Iodixanol (Visipaque 320) 104 ml 1X ONCE IART Last administered on 04/10/19at 15:42; Start 04/10/19 at 15:30; Stop 04/10/19 at 23:39; Status DC Heparin Sodium (Porcine) (Heparin Sodium) 4,000 unit 1X ONCE IV Last administered on 04/10/19at 15:42; Start 04/10/19 at 15:30; Stop 04/10/19 at 23:39; Status DC Lidocaine HCl (Lidocaine 1% 20ml Vial) 20 ml 1X ONCE INJ Last administered on 04/10/19at 15:42; Start 04/10/19 at 15:30; Stop 04/10/19 at 23:39; Status DC Atropine Sulfate (ATROPINE 1mg SYRINGE) 1 mg 1X ONCE IV Last administered on 04/10/19at 12:42; Start 04/10/19 at 12:42; Stop 04/10/19 at 15:42; Status DC Midazolam HCl (Versed) 5 mg 1X ONCE IV Last administered on 04/10/19at 13:15; Start 04/10/19 at 13:15; Stop 04/10/19 at 15:42; Status DC Vecuronium [place] (Norcuron Bolus) 10 mg STK-MED ONCE IV ; Start 04/10/19 at 16:54; Stop 04/10/19 at 16:55; Status DC Fentanyl Citrate (Fentanyl 2ml Vial) 100 mcg STK-MED ONCE .ROUTE ; Start 04/10/19 at 16:55; Stop 04/10/19 at 16:56; Status DC Fentanyl Citrate (Fentanyl 2ml Vial) 100 mcg 1X ONCE IV Last administered on 04/10/19at 17:16; Start 04/10/19 at 17:00; Stop 04/10/19 at 17:01; Status DC Midazolam HCl (Versed) 2 mg 1X ONCE IV ; Start 04/10/19 at 17:00; Stop 04/10/19 at 17:01; Status DC Magnesium Sulfate/ Dextrose 100 ml @ 100 mls/hr 1X ONCE IV Last administered on 04/10/19at 17:16; Start 04/10/19 at 18:00; Stop 04/10/19 at 18:59; Status DC Buspirone HCl (Buspar) 30 mg Q8HRS NG Last administered on 04/11/19at 21:13; Start 04/10/19 at 17:00; Stop 04/12/19 at 05:17; Status DC Acetaminophen (Tylenol) 650 mg Q4H NG Last administered on 04/12/19at 00:27; Start 04/10/19 at 17:00; Stop 04/12/19 at 03:15; Status DC Artificial Tears (Artificial Tears) 1 drop Q6HRS OU Last administered on 04/12/19at 00:27; Start 04/10/19 at 18:00; Stop 04/12/19 at 05:17; Status DC Artificial Tears (Artificial Tears) 1 drop PRN Q15MIN PRN OU DRY EYE; Start 04/10/19 at 17:00 Heparin Sodium (Porcine) (Heparin Sodium) 5,000 unit BID SQ ; Start 04/10/19 at 21:00; Status Cancel Pantoprazole Sodium (PROTONIX VIAL for IV PUSH) 40 mg DAILY IVP Last administered on 04/16/19at 09:18; Start 04/10/19 at 18:00 Fentanyl Citrate 30 ml @ 0 mls/hr CONT PRN IV PER PROTOCOL. Last administered on 04/10/19at 17:30; Start 04/10/19 at 17:00; Stop 04/14/19 at 13:51; Status DC Propofol 100 ml @ 0 mls/hr CONT PRN IV PER PROTOCOL. Last administered on 04/14/19at 04:56; Start 04/10/19 at 17:00; Stop 04/14/19 at 13:51; Status DC Midazolam HCl 50 mg/Sodium Chloride 50 ml @ 0 mls/hr CONT PRN IV PER PROTOCOL. Last administered on 04/12/19at 00:27; Start 04/10/19 at 17:00; Stop 04/14/19 at 13:51; Status DC Vecuronium [place] (Norcuron Bolus) 7 mg PRN Q1HR PRN IV SHIVERING Last administered on 04/11/19at 15:48; Start 04/10/19 at 17:00; Stop 04/14/19 at 13:51; Status DC Heparin Sodium/ Dextrose 250 ml @ 0 mls/hr CONT PRN IV PER PROTOCOL; Start 04/10/19 at 17:30; Stop 04/10/19 at 23:42; Status DC Heparin Sodium (Porcine) (Heparin Sodium) 2,150 unit PRN Q6HRS PRN IV FOR UFH LEVEL LESS THAN 0.2; Start 04/10/19 at 17:30; Stop 04/10/19 at 23:39; Status DC Heparin Sodium (Porcine) (Heparin Sodium) 1,050 unit PRN Q6HRS PRN IV FOR UFH LEVEL 0.2 - 0.29; Start 04/10/19 at 17:30; Stop 04/10/19 at 23:39; Status DC Hydralazine HCl (Apresoline Inj) 10 mg PRN Q6HRS PRN IVP ELEVATED BP, SEE C OMMENTS; Start 04/10/19 at 18:00; Stop 04/14/19 at 13:00; Status DC Hydralazine HCl (Apresoline Inj) 20 mg STK-MED ONCE .ROUTE ; Start 04/10/19 at 17:56; Stop 04/10/19 at 17:56; Status DC Iohexol (Omnipaque 350 Mg/ml) 75 ml 1X ONCE IV Last administered on 04/10/19at 18:45; Start 04/10/19 at 18:45; Stop 04/10/19 at 18:46; Status DC Insulin Human Regular 100 unit/ Sodium Chloride 101 ml @ 0 mls/hr CONT PRN IV SEE I/O RECORD Last administered on 04/11/19at 10:23; Start 04/10/19 at 19:30; Stop 04/12/19 at 03:15; Status DC Magnesium Sulfate/ Dextrose 100 ml @ 100 mls/hr PRN DAILY PRN IV MAG level 2.4-3.0mg/dl Last administered on 04/11/19at 08:44; Start 04/10/19 at 20:30 Potassium Chloride/Water 100 ml @ 100 mls/hr PRN DAILY PRN IV K+ level 3.1- 3.4mEq/L Last administered on 04/11/19at 06:50; Start 04/10/19 at 20:30 Magnesium Sulfate/ Dextrose 100 ml @ 100 mls/hr 1X PRN IV MAG level 2.4- 3.0mg/dl Last administered on 04/10/19at 22:17; Start 04/10/19 at 22:00; Stop 04/11/19 at 01:56; Status DC Potassium Chloride/Water 100 ml @ 100 mls/hr 1X PRN IV K+ level 3.1-3.4mEq/L Last administered on 04/10/19at 22:16; Start 04/10/19 at 22:00; Stop 04/11/19 at 01:55; Status DC Norepinephrine Bitartrate 8 mg/ Dextrose 258 ml @ 13.855 mls/ hr CONT PRN IV PER PROTOCOL Last administered on 04/13/19at 13:22; Start 04/10/19 at 22:45; Stop 04/14/19 at 13:51; Status DC Heparin Sodium/ Dextrose 250 ml @ 0 mls/hr CONT PRN IV PER PROTOCOL Last administered on 04/11/19at 00:43; Start 04/10/19 at 23:45; Stop 04/11/19 at 09:36; Status DC Heparin Sodium (Porcine) (Heparin Sodium) 1,800 unit PRN Q6HRS PRN IV FOR UFH LEVEL LESS THAN 0.2; Start 04/10/19 at 23:45; Stop 04/11/19 at 09:54; Status DC Amiodarone HCl 450 mg/Dextrose 259 ml @ 0 mls/hr CONT PRN IV SEE I/O RECORD Last administered on 04/12/19at 11:52; Start 04/11/19 at 00:00; Stop 04/11/19 at 19:36; Status DC Dextrose/Sodium Chloride 1,000 ml @ 75 mls/hr [id number] IV Last administered on 04/11/19at 01:57; Start 04/11/19 at 01:00; Stop 04/11/19 at 10:53; Status DC Potassium Chloride/Water 100 ml @ 50 mls/hr PRN DAILY PRN IV K+ level less than 3.1 mEq/l; Start 04/11/19 at 02:00; Status Cancel Potassium Chloride/Water 100 ml @ 100 mls/hr PRN Q1HR PRN IV K<3.1; Start 04/11/19 at 02:00 Magnesium Sulfate/ Dextrose 100 ml @ 100 mls/hr PRN DAILY PRN IV MAG level 2.4-3.0mg/dl; Start 04/11/19 at 06:45; Status UNV Potassium Chloride/Water 100 ml @ 100 mls/hr PRN DAILY PRN IV K+ level 3.1- 3.4mEq/L; Start 04/11/19 at 06:45; Status UNV Atropine Sulfate (ATROPINE 0.5mg SYRINGE) 0.25 mg 1X ONCE IM ; Start 04/11/19 at 09:45; Stop 04/11/19 at 09:38; Status DC Atropine Sulfate (ATROPINE 1mg SYRINGE) 0.25 mg 1X ONCE IM Last administered on 04/11/19at 09:55; Start 04/11/19 at 09:45; Stop 04/11/19 at 09:46; Status DC Dopamine HCl/ Dextrose 250 ml @ 6.676 mls/ hr CONT PRN IV SEE I/O RECORD Last administered on 04/12/19at 20:21; Start 04/11/19 at 10:00; Stop 04/14/19 at 13:51; Status DC Sodium Chloride 1,000 ml @ 75 mls/hr [id number] IV Last administered on 04/11/19at 19:36; Start 04/11/19 at 12:00; Stop 04/13/19 at 15:18; Status DC Heparin Sodium (Porcine) (Heparin Sodium) 5,000 unit BID SQ Last administered on 04/14/19at 21:19; Start 04/11/19 at 21:00; Stop 04/15/19 at 12:18; Status DC Atropine Sulfate (ATROPINE 1mg SYRINGE) 1 mg STK-MED ONCE .ROUTE ; Start 04/10/19 at 15:16; Stop 04/11/19 at 15:16; Status DC Amiodarone HCl 450 mg/Dextrose 259 ml @ 33 mls/hr CONT PRN PRN IV SEE I/O RECORD Last administered on 04/13/19at 04:37; Start 04/12/19 at 08:15; Stop 04/14/19 at 13:51; Status DC Acetaminophen (Tylenol) 650 mg PRN Q6HRS PRN PEG MILD PAIN / TEMP Last administered on 04/13/19at 00:02; Start 04/12/19 at 11:30 Dexmedetomidine HCl 400 mcg/ Sodium Chloride 100 ml @ 0 mls/hr CONT PRN IV ANXIETY / AGITATION Last administered on 04/15/19at 05:23; Start 04/13/19 at 08:00 Piperacillin Sod/ Tazobactam Sod 4.5 gm/Sodium Chloride 100 ml @ 200 mls/hr Q6HRS IV Last administered on 04/16/19at 05:47; Start 04/13/19 at 09:00 Sodium Chloride 1,000 ml @ 75 mls/hr [id number] IV ; Start 04/13/19 at 15:30; Status Cancel Sodium Chloride 1,000 ml @ 75 mls/hr [id number] IV Last administered on 04/14/19at 05:05; Start 04/13/19 at 15:45; Stop 04/14/19 at 18:32; Status DC Haloperidol Lactate (Haldol Inj) 2 mg PRN Q6HRS PRN IVP AGITATION 3RD CHOICE Last administered on 04/16/19at 05:48; Start 04/14/19 at 10:30 Furosemide (Lasix) 40 mg 1X ONCE IVP Last administered on 04/14/19at 13:19; S tart 04/14/19 at 13:00; Stop 04/14/19 at 13:01; Status DC Hydralazine HCl (Apresoline Inj) 10 mg PRN Q4HRS PRN IVP ELEVATED BP, SEE COMMENTS Last administered on 04/15/19at 19:34; Start 04/14/19 at 13:00 Atropine Sulfate (ATROPINE 1mg SYRINGE) 1 mg STK-MED ONCE .ROUTE ; Start 04/10/19 at 10:00; Stop 04/14/19 at 13:34; Status DC Calcium Chloride 1,000 mg STK-MED ONCE IV ; Start 04/10/19 at 10:00; Stop 04/14/19 at 13:34; Status DC Metoprolol Tartrate (Lopressor Vial) 5 mg Q6HRS IVP Last administered on 03/27 05/15at 05:48; Start 04/14/19 at 14:30 Magnesium Sulfate 50 ml @ 25 mls/hr 1X ONCE IV Last administered on 04/14/19at 15:39; Start 04/14/19 at 15:00; Stop 04/14/19 at 16:59; Status DC Potassium Chloride/Water 100 ml @ 100 mls/hr Q1H IV Last administered on 04/14/19at 16:46; Start 04/14/19 at 15:00; Stop 04/14/19 at 16:59; Status DC Amiodarone HCl 450 mg/Dextrose 259 ml @ 17 mls/hr CONT PRN IV SEE I/O RECORD Last administered on 04/15/19at 05:22; Start 04/14/19 at 15:15; Stop 04/15/19 at 05:23; Status DC Lorazepam (Ativan Inj) 0.5 mg PRN Q4HRS PRN IVP ANXIETY / AGITATION; Start 04/15/19 at 08:15 Lorazepam (Ativan Inj) 1 mg PRN Q4HRS PRN IVP ANXIETY / AGITATION Last administered on 04/15/19at 23:51; Start 04/15/19 at 08:30 Potassium Chloride/Water 100 ml @ 100 mls/hr Q1H IV Last administered on 04/15/19at 13:05; Start 04/15/19 at 09:00; Stop 04/15/19 at 10:59; Status DC Lidocaine/ Epinephrine (LIDOCAINE 2%-EPI 1:100,000 multi-dose) 20 ml 1X ONCE IJ Last administered on 04/15/19at 11:09; Start 04/15/19 at 09:00; Stop 04/15/19 at 09:06; Status DC Bacitracin 63381 unit/Sodium Chloride 250 ml @ 0 mls/hr 1X ONCE IRR Last administered on 04/15/19at 11:45; Start 04/15/19 at 09:00; Stop 04/15/19 at 09:06; Status DC Cefazolin Sodium (Ancef) 1 gm 1X ONCE IVP Last administered on 04/15/19at 11:07; Start 04/15/19 at 09:00; Stop 04/15/19 at 09:06; Status DC Midazolam HCl (Versed) 2 mg STK-MED ONCE .ROUTE ; Start 04/15/19 at 09:38; Stop 04/15/19 at 09:38; Status DC Propofol 50 ml @ As Directed STK-MED ONCE IV ; Start 04/15/19 at 09:40; Stop 04/15/19 at 09:40; Status DC Furosemide (Lasix) 40 mg 1X ONCE IVP ; Start 04/15/19 at 10:15; Stop 04/15/19 at 10:16; Status DC Furosemide (Lasix) 40 mg STK-MED ONCE .ROUTE ; Start 04/15/19 at 10:03; Stop 04/15/19 at 10:03; Status DC Lidocaine/ Epinephrine (LIDOCAINE 2%-EPI 1:100,000 multi-dose) 20 ml STK-MED ONCE .ROUTE ; Start 04/15/19 at 10:08; Stop 04/15/19 at 10:09; Status DC Iohexol (Omnipaque 300 Mg/ml) 100 ml STK-MED ONCE .ROUTE ; Start 04/15/19 at 11:16; Stop 04/15/19 at 11:16; Status DC Iohexol (Omnipaque 300 Mg/ml) 10 ml 1X ONCE IART Last administered on 04/15/19at 11:17; Start 04/15/19 at 12:00; Stop 04/15/19 at 12:05; Status DC Info (CONTRAST GIVEN -- Rx MONITORING) 1 each PRN DAILY PRN MC SEE COMMENTS; Start 04/15/19 at 12:15; Stop 04/17/19 at 12:14 Info (No Anticoagulant Therapy) 1 ea CONT PRN PRN MC PER PROTOCOL; Start 04/15/19 at 12:15 Cefazolin Sodium (Ancef) 1 gm 1X ONCE IVP ; Start 04/15/19 at 12:30; Stop 04/15/19 at 12:31; Status UNV Acetaminophen (Tylenol) 650 mg PRN Q6HRS PRN PO MILD PAIN 1-3; Start 04/15/19 at 12:15 Labetalol HCl (Normodyne Iv Push) 20 mg PRN Q2HR PRN IVP HYPERTENSION Last administered on 04/16/19at 08:13; Start 04/15/19 at 16:00 Nitroglycerin (Nitro-Bid Oint) 1 inch Q6HRS TP Last administered on 04/15/19at 17:05; Start 04/15/19 at 18:00; Stop 04/15/19 at 20:46; Status DC Nitroglycerin/ Dextrose 250 ml @ 1.5 mls/hr CONT PRN IV SEE I/O RECORD Last administered on 04/16/19at 08:06; Start 04/15/19 at 20:45 Potassium Chloride (Klor-Con) 40 meq Q2H PO ; Start 04/16/19 at 08:00; Stop 04/16/19 at 07:52; Status DC Potassium Chloride/Water 100 ml @ 100 mls/hr Q1H IV Last administered on 04/16/19at 09:18; Start 04/16/19 at 08:00; Stop 04/16/19 at 09:59; Status DC Nitroglycerin (Nitro-Bid Oint) 1 inch Q6HRS TP ; Start 04/16/19 at 12:00 Nitroglycerin (Nitro-Bid Oint) 1 inch 1X ONCE TP Last administered on at 09:48; Start 04/16/19 at 09:45; Stop 04/16/19 at 09:46; Status DC Amiodarone HCl 150 mg/Dextrose 103 ml @ 618 mls/hr 1X ONCE IV Last administered on 04/16/19at 09:48; Start 04/16/19 at 10:00; Stop 04/16/19 at 10:09; Status DC Amiodarone HCl 450 mg/Dextrose 259 ml @ 0 mls/hr CONT PRN IV SEE I/O RECORD Last administered on 04/16/19at 09:49; Start 04/16/19 at 09:30 Potassium Chloride/Water 100 ml @ 100 mls/hr Q1H IV Last administered on 04/16/19at 10:14; Start 04/16/19 at 10:00; Stop 04/16/19 at 11:59 Aspirin (Aspirin Rectal Supp) 150 mg 1X ONCE TX ; Start 04/16/19 at 10:30; Stop 04/16/19 at 10:31; Status DC Active Scripts Active Reported Celebrex (Celecoxib) 100 Mg Capsule 1 Cap PO BID Verapamil Er (Verapamil Hcl) 240 Mg Cap24h.pel 1 Cap PO DAILY Vitals/I & O Vital Sign - Last 24 Hours 04/15/19 04/15/19 04/15/19 04/15/19 12:25 12:25 12:40 13:00 Temp 98.5 98.5 Pulse 94 94 94 Resp 20 B/P (MAP) 177/80 184/75 174/80 Pulse Ox 98 95 95 O2 Delivery Nasal Cannula Nasal Cannula Nasal Cannula Nasal Cannula O2 Flow Rate 4 4 4 4 04/15/19 04/15/19 04/15/19 04/15/19 13:00 13:10 13:15 13:30 Temp 100.4 100.4 Pulse 92 92 86 76 Resp 23 21 18 B/P (MAP) 189/79 (115) 189/79 176/78 (110) 181/86 (117) Pulse Ox 99 98 99 O2 Delivery Nasal Cannula Nasal Cannula Nasal Cannula O2 Flow Rate 4.0 4.0 4.0 04/15/19 04/15/19 04/15/19 04/15/19 13:45 14:06 15:00 15:38 Pulse 76 90 92 Resp 20 24 17 B/P (MAP) 190/90 (123) 191/89 165/62 (96) 180/79 (112) Pulse Ox 99 98 97 O2 Delivery Nasal Cannula Nasal Cannula Nasal Cannula O2 Flow Rate 4.0 4.0 4.0 04/15/19 04/15/19 04/15/19 04/15/19 16:00 16:04 17:00 17:05 Temp 100.6 100.6 Pulse 88 81 77 Resp 21 B/P (MAP) 184/79 168/70 (102) 184/76 Pulse Ox 98 O2 Delivery Nasal Cannula Nasal Cannula O2 Flow Rate 4.0 2.0 04/15/19 04/15/19 04/15/19 04/15/19 17:05 18:00 18:03 19:30 Temp 100.0 100.0 Pulse 77 70 78 72 Resp 19 28 B/P (MAP) 184/79 160/71 (100) 181/85 177/70 (105) Pulse Ox 97 97 O2 Delivery Nasal Cannula Nasal Cannula O2 Flow Rate 2.0 2.0 04/15/19 04/15/19 04/15/19 04/15/19 19:34 20:00 20:00 21:10 Temp 100.2 100.2 Pulse 71 77 76 Resp 28 23 B/P (MAP) 177/70 183/76 (111) 172/70 (104) Pulse Ox 98 98 O2 Delivery Nasal Cannula Nasal Cannula Nasal Cannula O2 Flow Rate 2.0 3.0 3.0 04/15/19 04/15/19 04/15/19 04/15/19 21:25 21:30 21:45 21:55 Pulse 80 80 76 78 Resp 28 B/P (MAP) 174/79 (110) 176/79 (111) 170/81 (110) 162/84 (110) Pulse Ox 97 O2 Delivery Nasal Cannula O2 Flow Rate 3.0 04/15/19 04/15/19 04/15/19 04/15/19 22:15 22:20 22:30 22:45 Pulse 77 85 77 80 B/P (MAP) 182/75 (110) 185/80 (115) 173/71 (105) 174/80 (111) 04/15/19 04/15/19 04/15/19 04/15/19 23:03 23:16 23:30 23:53 Pulse 79 83 88 81 Resp 26 B/P (MAP) 174/75 (108) 173/79 (110) 173/75 (107) 168/72 Pulse Ox 96 97 O2 Delivery Nasal Cannula Nasal Cannula O2 Flow Rate 3.0 3.0 04/15/19 04/16/19 04/16/19 04/16/19 23:53 00:00 00:15 01:06 Temp 99.9 99.9 Pulse 81 70 78 Resp 26 22 B/P (MAP) 168/72 (104) 140/67 (91) 145/66 (92) Pulse Ox 95 96 O2 Delivery Nasal Cannula Nasal Cannula Nasal Cannula O2 Flow Rate 3.0 3.0 3.0 04/16/19 04/16/19 04/16/19 04/16/19 01:30 01:45 02:26 02:44 Pulse 74 80 92 79 B/P (MAP) 167/75 (105) 138/72 (94) 165/67 (99) 160/82 (108) Pulse Ox 96 96 94 O2 Delivery Nasal Cannula Nasal Cannula Nasal Cannula O2 Flow Rate 3.0 3.0 3.0 04/16/19 04/16/19 04/16/19 04/16/19 03:00 03:19 04:30 05:00 Pulse 79 81 84 Resp 27 B/P (MAP) 165/74 (104) 169/69 (102) 169/74 (105) Pulse Ox 93 92 93 O2 Delivery Nasal Cannula Nasal Cannula Nasal Cannula Nasal Cannula O2 Flow Rate 3.0 3.0 3.0 3.0 04/16/19 04/16/19 04/16/19 04/16/19 05:48 06:00 07:00 08:00 Pulse 81 68 74 Resp 21 14 B/P (MAP) 169/74 175/74 (107) 175/68 (103) Pulse Ox 91 92 O2 Delivery Nasal Cannula Nasal Cannula Nasal Cannula O2 Flow Rate 3.0 3.0 3.0 04/16/19 04/16/19 04/16/19 04/16/19 08:00 08:13 08:15 09:00 Temp 99.9 99.9 Pulse 130 121 109 Resp 16 14 B/P (MAP) 181/82 (115) 181/82 139/83 (101) 153/86 (108) Pulse Ox 93 96 O2 Delivery Nasal Cannula Nasal Cannula O2 Flow Rate 3.0 3.0 04/16/19 04/16/19 04/16/19 09:48 09:48 10:00 Pulse 126 126 110 Resp 20 B/P (MAP) 160/96 160/96 150/82 (104) Pulse Ox 96 O2 Delivery Nasal Cannula O2 Flow Rate 3.0 Intake and Output 04/15/19 04/15/19 04/16/19 14:59 22:59 06:59 Intake Total 550 ml 277 ml 278 ml Output Total 1700 ml 470 ml 370 ml Balance -1150 ml -193 ml -92 ml GAIL WOOD MD Apr 16, 2019 10:38
--- NOTE | 2019-04-16 11:20 | PDOC ---
PULMONARY PROGRESS NOTES Subjective extubated 04/14 S/P AICD on 04/15 Overnight AFIB RR placed on amio gtt Vitals Vital Signs Date Time Temp Pulse Resp B/P (MAP) Pulse Ox O2 Delivery O2 Flow Rate FiO2 04/16/19 10:00 110 20 150/82 (104) 96 Nasal Cannula 3.0 04/16/19 08:00 99.9 99.9 ROS: No Nausea, No Chest Pain, No Abdominal Pain, No Increase Cough General: Alert, No acute distress Lungs: Clear Cardiovascular: Other (afib ) Abdomen: Soft, Non-tender Neuro Exam: Alert Extremities: No Edema Skin: Warm, Dry Labs Laboratory Tests Test 04/14/19 14:10 04/15/19 05:40 04/16/19 06:30 Sodium Level 142 mmol/L (136-145) 143 mmol/L (136-145) 147 mmol/L (136-145) Potassium Level 3.4 mmol/L (3.5-5.1) 3.1 mmol/L (3.5-5.1) 2.8 mmol/L (3.5-5.1) Chloride Level 108 mmol/L (98-107) 109 mmol/L (98-107) 111 mmol/L (98-107) Carbon Dioxide Level 24 mmol/L (21-32) 23 mmol/L (21-32) 26 mmol/L (21-32) Anion Gap 10 (6-14) 11 (6-14) 10 (6-14) Blood Urea Nitrogen 13 mg/dL (7-20) 16 mg/dL (7-20) 22 mg/dL (7-20) Creatinine 0.8 mg/dL (0.6-1.0) 0.7 mg/dL (0.6-1.0) 0.7 mg/dL (0.6-1.0) Estimated GFR (Cockcroft-Gault) 73.2 85.4 85.4 Glucose Level 89 mg/dL (70-99) 108 mg/dL (70-99) 158 mg/dL (70-99) Calcium Level 8.2 mg/dL (8.5-10.1) 8.2 mg/dL (8.5-10.1) 8.2 mg/dL (8.5-10.1) Magnesium Level 1.8 mg/dL (1.8-2.4) 2.1 mg/dL (1.8-2.4) White Blood Count 13.1 x10^3/uL (4.0-11.0) 11.1 x10^3/uL (4.0-11.0) Red Blood Count 2.94 x10^6/uL (3.50-5.40) 2.83 x10^6/uL (3.50-5.40) Hemoglobin 8.7 g/dL (12.0-15.5) 8.2 g/dL (12.0-15.5) Hematocrit 25.5 % (36.0-47.0) 24.4 % (36.0-47.0) Mean Corpuscular Volume 87 fL (79-100) 86 fL (79-100) Mean Corpuscular Hemoglobin 30 pg (25-35) 29 pg (25-35) Mean Corpuscular Hemoglobin Concent 34 g/dL (31-37) 34 g/dL (31-37) Red Cell Distribution Width 13.0 % (11.5-14.5) 13.4 % (11.5-14.5) Platelet Count 157 x10^3/uL (140-400) 217 x10^3/uL (140-400) Neutrophils (%) (Auto) 84 % (31-73) Lymphocytes (%) (Auto) 7 % (24-48) Monocytes (%) (Auto) 9 % (0-9) Eosinophils (%) (Auto) 0 % (0-3) Basophils (%) (Auto) 0 % (0-3) Neutrophils # (Auto) 11.0 x10^3/uL (1.8-7.7) Lymphocytes # (Auto) 0.9 x10^3/uL (1.0-4.8) Monocytes # (Auto) 1.1 x10^3/uL (0.0-1.1) Eosinophils # (Auto) 0.0 x10^3/uL (0.0-0.7) Basophils # (Auto) 0.0 x10^3/uL (0.0-0.2) Laboratory Tests Test 04/16/19 06:30 White Blood Count 11.1 x10^3/uL (4.0-11.0) Red Blood Count 2.83 x10^6/uL (3.50-5.40) Hemoglobin 8.2 g/dL (12.0-15.5) Hematocrit 24.4 % (36.0-47.0) Mean Corpuscular Volume 86 fL (79-100) Mean Corpuscular Hemoglobin 29 pg (25-35) Mean Corpuscular Hemoglobin Concent 34 g/dL (31-37) Red Cell Distribution Width 13.4 % (11.5-14.5) Platelet Count 217 x10^3/uL (140-400) Sodium Level 147 mmol/L (136-145) Potassium Level 2.8 mmol/L (3.5-5.1) Chloride Level 111 mmol/L (98-107) Carbon Dioxide Level 26 mmol/L (21-32) Anion Gap 10 (6-14) Blood Urea Nitrogen 22 mg/dL (7-20) Creatinine 0.7 mg/dL (0.6-1.0) Estimated GFR (Cockcroft-Gault) 85.4 Glucose Level 158 mg/dL (70-99) Calcium Level 8.2 mg/dL (8.5-10.1) Medications Active Scripts Medications Dose Route/Sig Max Daily Dose Days Date Category Celebrex (Celecoxib) 100 Mg Capsule 1 Cap PO BID 04/11/19 Reported Verapamil Er (Verapamil Hcl) 240 Mg Cap24h.pel 1 Cap PO DAILY 04/11/19 Reported Comments cxr reviewed 04/15 increase bilateral infiltrate c/w CHF CTA CHEST IMPRESSION: 1. No pulmonary embolus identified within the main, lobar or segmental pulmonary arteries. 2. Layering consolidative changes in the lungs bilaterally greater on the left favored to represent pulmonary edema. Superimposed infectious process is difficult to exclude. FINDINGS 1. Hemodynamics: Left ventricular end-diastolic pressure 5 mmHg. No pullback gradient across the aortic valve. 2. Left ventriculography: Normal left ventricle systolic function with ejection fraction estimated at 55%. No significant mitral regurgitation seen. 3. Coronary angiography: a. The left main coronary artery arose from the left sinus of Valsalva, gave rise to the left anterior descending and left circumflex arteries and did not show any significant stenosis. b. The left anterior descending artery showed 30% stenosis in the midsegment. The diagonal branch showed 50% stenosis in the proximal segment. c. The left circumflex artery did not show any significant stenosis. d. The right coronary artery was a large and dominant vessel arising from the right sinus of Valsalva that showed 50% stenosis in the midsegment. This was physiologically insignificant based on IFR measurement of 1.0. Conclusion 1. Nonobstructive coronary artery disease. 50% stenosis involving dominant right coronary artery that was physiologically not significant based on IFR spencer urement. The diagonal branch which is a small to medium caliber vessel also showed 50% proximal segment stenosis. 2. Normal left ventricle systolic function with ejection fraction estimated at 55%. Recommendations Consider AICD implantation for secondary prevention of sudden cardiac if workup for pulmonary embolism as negative Impression . IMPRESSION: 1. [id number] cardiopulmonary arrest, etiology unclear. 2. Status post emergent cardiac catheterization revealing normal ejection fraction, nonobstructive coronary artery disease, 50% stenosis involving the dominant right coronary artery. Normal left ventricular ejection fraction estimated at 55%. 3. Hypertension. 4. Recent acute bronchitis. 5. Abnormal ct chest with bilateral infiltrates 6. worsening CXR today c/w CHF 7. afib RVR Plan . cont. supplemental oxygent o keep sats above 92 % cardiology following --- rakel. recs--- S/P AICD on 04/15/2019 AFIB RVR over night, on amio gtt cont. per cardiology HTN per PCP/ cardiology-- currently on nitro gtt, wean as tolerated CT chest was (-) for PE replace electrolytes cont. nebs cont. ABXS cont DVT/GI PPX OK to transfer out of ICU from our stand point discussed w RN / family/ RT ABDOULAYE CAT MD Apr 16, 2019 11:20
--- NOTE | 2019-04-16 12:29 | NUR ---
Patient impulsive, attempting to crawl out of bed multiple times but able to re-orient. Patient alert and oriented x3 but forgetful. Patient cleared to go to [facility] with 1:1 sitter.
[2019-04-16] MEDS: NITROGLYCERIN OINT 1 GM PACKET. TP SCH ×3 (13:13→23:05)
[2019-04-16] MEDS: AA 4.25 %/CALCIUM/LYTES/D5W 1,000 ML IV SCH (16:07)
[2019-04-16 16:37] LABS: CALCIUM 7.4 mg/dL (8.5-10.1); CREATININE 0.6 mg/dL (0.6-1.0); POTASSIUM 3.2 mmol/L (3.5-5.1)
[2019-04-16] MEDS: hydrALAZINE 20 MG/ML VIAL. IVP PRN (16:54)
[2019-04-16] MEDS ORDERED: FUROSEMIDE 40 MG/4 ML VIAL. IVP ONE (18:00)
[2019-04-17] VITALS (15 sets, daily range): BP systolic 150–185; BP diastolic 70–107
[2019-04-17] MEDS: LABETALOL 20 MG/4 ML DISP.SYRIN. IVP PRN ×2 (02:14→10:20)
[2019-04-17] MEDS: PIPERACILLIN/TAZOBACTAM 4.5 GM in IV NORMAL SALINE 100ML 100 ML IV SCH ×4 (06:17→23:14)
[2019-04-17] MEDS: METOPROLOL TARTRATE 5 MG/5 ML VIAL. IVP SCH ×4 (06:18→23:24)
[2019-04-17] MEDS: AA 4.25 %/CALCIUM/LYTES/D5W 1,000 ML IV SCH ×2 (06:19→21:45)
[2019-04-17] MEDS: NITROGLYCERIN OINT 1 GM PACKET. TP SCH ×4 (06:25→23:22)
[2019-04-17 08:07] LABS: BASO % 0 % (0-3); EOS # 0.1 x10^3/uL (0.0-0.7); EOS % 1 % (0-3); HEMATOCRIT 25.3 % (36.0-47.0); HEMOGLOBIN 8.6 g/dL (12.0-15.5); LYMPH # 1.5 x10^3/uL (1.0-4.8); LYMPH % 14 % (24-48); MEAN CORPUSCULAR HEMOGLOBIN 29 pg (25-35); MEAN CORPUSCULAR HGB CONC 34 g/dL (31-37); MEAN CORPUSCULAR VOLUME 86 fL (79-100); MONO # 1.7 x10^3/uL (0.0-1.1); MONO % 15 % (0-9); NEUT # 7.7 x10^3/uL (1.8-7.7); NEUT % 70 % (31-73); PLATELET COUNT 243 x10^3/uL (140-400); RED BLOOD COUNT 2.94 x10^6/uL (3.50-5.40); RED CELL DISTRIBUTION WIDTH 13.5 % (11.5-14.5); WHITE BLOOD COUNT 10.9 x10^3/uL (4.0-11.0)
[2019-04-17] MEDS: hydrALAZINE 20 MG/ML VIAL. IVP PRN ×2 (08:27→17:52)
[2019-04-17] MEDS: PANTOPRAZOLE IV PUSH 40 MG VIAL. IVP SCH (08:27)
[2019-04-17 08:35] LABS: ALBUMIN 1.9 g/dL (3.4-5.0); ALBUMIN/GLOBULIN RATIO 0.6 (1.0-1.7); CALCIUM 8.6 mg/dL (8.5-10.1); CREATININE 0.6 mg/dL (0.6-1.0); POTASSIUM 3.1 mmol/L (3.5-5.1); TOTAL BILIRUBIN 0.6 mg/dL (0.2-1.0); TOTAL PROTEIN 5.2 g/dL (6.4-8.2)
[2019-04-17] MEDS ORDERED: POTASSIUM CHLORIDE 20MEQ 100 ML IV ONE (09:00)
[2019-04-17] MEDS: POTASSIUM CHLORIDE 20MEQ 100 ML IV SCH ×2 (09:07→10:58)
--- NOTE | 2019-04-17 10:15 | PDOC ---
PROGRESS NOTES Assessment Problems Medical Problems: (1) Acute respiratory acidosis Status: Acute (2) Cardiorespiratory arrest Status: Acute (3) Elevated d-dimer Status: Acute (4) Elevated troponin Status: Acute (5) Hyperglycemia Status: Acute (6) Hypokalemia Status: Acute (7) NSTEMI (non-ST elevated myocardial infarction) Status: Acute (8) Pneumonia Status: Acute (9) Sepsis Status: Acute (10) Severe sepsis Status: Acute Cardiopulmonary arrest, down time estimated 8 minutes per her friend. CT head negative, EEG borderline study, mild slowing of background, no epileptic activity Anoxic encephalopathy, much better. Ventricular tachycardia Cardiac shock. Respiratory failure. Pulmonary edema. Pulmonary interstitial infiltrate. Lactic acidosis. Hypokalemia, K+ 2.9 Hyperglycemia, glucose 300. DM. HTN. HLD. 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 Subjective no complaints Objective Vital Signs Date Time Temp Pulse Resp B/P (MAP) Pulse Ox O2 Delivery O2 Flow Rate FiO2 04/17/19 09:35 75 176/107 (130) 04/17/19 08:00 Nasal Cannula 3.0 04/17/19 07:00 97.5 20 94 97.5 Intake and Output 04/17/19 07:00 Intake Total 363 ml Output Total 3720 ml Balance -3357 ml Intake Oral 0 ml IV Total 303 ml Other 60 ml Output Urine Total 3720 ml # Bowel Movements 5 PHYSICAL EXAM Alert. Oriented to time, place and person PERRL. EOMI. CN: no focal findings. Muscle tone: normal. Muscle strength: 4/5, splint on left arm (pacemaker) DTR: 2+ Plantar reflex: flexor Gait: not examined in bed. Sensory exam: no abnormal findings. No cerebellar signs elicited. Review of Relevant I have reviewed the following items fracisco (where applicable) has been applied. Labs Laboratory Tests Test 04/16/19 06:30 04/16/19 16:20 04/17/19 07:55 White Blood Count 11.1 x10^3/uL (4.0-11.0) 10.9 x10^3/uL (4.0-11.0) Red Blood Count 2.83 x10^6/uL (3.50-5.40) 2.94 x10^6/uL (3.50-5.40) Hemoglobin 8.2 g/dL (12.0-15.5) 8.6 g/dL (12.0-15.5) Hematocrit 24.4 % (36.0-47.0) 25.3 % (36.0-47.0) Mean Corpuscular Volume 86 fL (79-100) 86 fL (79-100) Mean Corpuscular Hemoglobin 29 pg (25-35) 29 pg (25-35) Mean Corpuscular Hemoglobin Concent 34 g/dL (31-37) 34 g/dL (31-37) Red Cell Distribution Width 13.4 % (11.5-14.5) 13.5 % (11.5-14.5) Platelet Count 217 x10^3/uL (140-400) 243 x10^3/uL (140-400) Sodium Level 147 mmol/L (136-145) 147 mmol/L (136-145) 144 mmol/L (136-145) Potassium Level 2.8 mmol/L (3.5-5.1) 3.2 mmol/L (3.5-5.1) 3.1 mmol/L (3.5-5.1) Chloride Level 111 mmol/L (98-107) 113 mmol/L (98-107) 108 mmol/L (98-107) Carbon Dioxide Level 26 mmol/L (21-32) 26 mmol/L (21-32) 28 mmol/L (21-32) Anion Gap 10 (6-14) 8 (6-14) 8 (6-14) Blood Urea Nitrogen 22 mg/dL (7-20) 18 mg/dL (7-20) 21 mg/dL (7-20) Creatinine 0.7 mg/dL (0.6-1.0) 0.6 mg/dL (0.6-1.0) 0.6 mg/dL (0.6-1.0) Estimated GFR (Cockcroft-Gault) 85.4 102.0 102.0 Glucose Level 158 mg/dL (70-99) 134 mg/dL (70-99) 147 mg/dL (70-99) Calcium Level 8.2 mg/dL (8.5-10.1) 7.4 mg/dL (8.5-10.1) 8.6 mg/dL (8.5-10.1) Magnesium Level 2.1 mg/dL (1.8-2.4) Neutrophils (%) (Auto) 70 % (31-73) Lymphocytes (%) (Auto) 14 % (24-48) Monocytes (%) (Auto) 15 % (0-9) Eosinophils (%) (Auto) 1 % (0-3) Basophils (%) (Auto) 0 % (0-3) Neutrophils # (Auto) 7.7 x10^3/uL (1.8-7.7) Lymphocytes # (Auto) 1.5 x10^3/uL (1.0-4.8) Monocytes # (Auto) 1.7 x10^3/uL (0.0-1.1) Eosinophils # (Auto) 0.1 x10^3/uL (0.0-0.7) Basophils # (Auto) 0.0 x10^3/uL (0.0-0.2) BUN/Creatinine Ratio 35 (6-20) Total Bilirubin 0.6 mg/dL (0.2-1.0) Aspartate Amino Transf (AST/SGOT) 70 U/L (15-37) Alanine Aminotransferase (ALT/SGPT) 83 U/L (14-59) Alkaline Phosphatase 58 U/L (46-116) Total Protein 5.2 g/dL (6.4-8.2) Albumin 1.9 g/dL (3.4-5.0) Albumin/Globulin Ratio 0.6 (1.0-1.7) Laboratory Tests Test 04/16/19 16:20 04/17/19 07:55 Sodium Level 147 mmol/L (136-145) 144 mmol/L (136-145) Potassium Level 3.2 mmol/L (3.5-5.1) 3.1 mmol/L (3.5-5.1) Chloride Level 113 mmol/L (98-107) 108 mmol/L (98-107) Carbon Dioxide Level 26 mmol/L (21-32) 28 mmol/L (21-32) Anion Gap 8 (6-14) 8 (6-14) Blood Urea Nitrogen 18 mg/dL (7-20) 21 mg/dL (7-20) Creatinine 0.6 mg/dL (0.6-1.0) 0.6 mg/dL (0.6-1.0) Estimated GFR (Cockcroft-Gault) 102.0 102.0 Glucose Level 134 mg/dL (70-99) 147 mg/dL (70-99) Calcium Level 7.4 mg/dL (8.5-10.1) 8.6 mg/dL (8.5-10.1) White Blood Count 10.9 x10^3/uL (4.0-11.0) Red Blood Count 2.94 x10^6/uL (3.50-5.40) Hemoglobin 8.6 g/dL (12.0-15.5) Hematocrit 25.3 % (36.0-47.0) Mean Corpuscular Volume 86 fL (79-100) Mean Corpuscular Hemoglobin 29 pg (25-35) Mean Corpuscular Hemoglobin Concent 34 g/dL (31-37) Red Cell Distribution Width 13.5 % (11.5-14.5) Platelet Count 243 x10^3/uL (140-400) Neutrophils (%) (Auto) 70 % (31-73) Lymphocytes (%) (Auto) 14 % (24-48) Monocytes (%) (Auto) 15 % (0-9) Eosinophils (%) (Auto) 1 % (0-3) Basophils (%) (Auto) 0 % (0-3) Neutrophils # (Auto) 7.7 x10^3/uL (1.8-7.7) Lymphocytes # (Auto) 1.5 x10^3/uL (1.0-4.8) Monocytes # (Auto) 1.7 x10^3/uL (0.0-1.1) Eosinophils # (Auto) 0.1 x10^3/uL (0.0-0.7) Basophils # (Auto) 0.0 x10^3/uL (0.0-0.2) BUN/Creatinine Ratio 35 (6-20) Total Bilirubin 0.6 mg/dL (0.2-1.0) Aspartate Amino Transf (AST/SGOT) 70 U/L (15-37) Alanine Aminotransferase (ALT/SGPT) 83 U/L (14-59) Alkaline Phosphatase 58 U/L (46-116) Total Protein 5.2 g/dL (6.4-8.2) Albumin 1.9 g/dL (3.4-5.0) Albumin/Globulin Ratio 0.6 (1.0-1.7) Microbiology 04/13/19 - Final, Resulted 04/13/19 - Final, Resulted 04/13/19 - Final, Resulted 04/13/19 - Preliminary, Resulted 04/13/19 - Preliminary, Resulted 04/13/19 - Preliminary, Resulted 04/13/19 Gram Stain Evaluation - Final, Resulted 04/13/19 Sputum Culture - Final, Resulted 04/13/19 Sputum Result 1 - Final, Resulted 04/10/19 Blood Culture - Final, Complete NO GROWTH AFTER 5 DAYS Medications Current Medications Norepinephrine Bitartrate 8 mg/ Dextrose 258 ml @ 13.855 mls/ hr 1X ONCE IV Last administered on 04/10/19at 12:40; Start 04/10/19 at 12:30; Stop 04/10/19 at 12:31; Status DC Amiodarone HCl 450 mg/Dextrose 259 ml @ 33 mls/hr 1X ONCE IV Last administered on 04/10/19at 12:55; Start 04/10/19 at 12:45; Stop 04/10/19 at 20:35; Status DC Sodium Chloride 1,000 ml @ 1,000 mls/hr Q1H IV Last administered on 04/10/19at 12:20; Start 04/10/19 at 12:13; Stop 04/10/19 at 13:12; Status DC Midazolam HCl 50 mg/Sodium Chloride 50 ml @ 1 mls/hr 1X ONCE IV Last administered on 04/10/19at 13:35; Start 04/10/19 at 13:15; Stop 04/11/19 at 13:55; Status DC Potassium Chloride/Water 100 ml @ 50 mls/hr 1X ONCE IV ; Start 04/10/19 at 13:15; Stop 04/10/19 at 13:16; Status DC Etomidate (Amidate) 20 mg STK-MED ONCE IV ; Start 04/10/19 at 13:14; Stop 03/26 09/12 at 13:14; Status DC Midazolam HCl (Versed) 5 mg STK-MED ONCE .ROUTE ; Start 04/10/19 at 13:15; Stop 04/10/19 at 13:15; Status DC Succinylcholine Chloride (Anectine) 200 mg STK-MED ONCE .ROUTE ; Start 04/10/19 at 13:15; Stop 04/10/19 at 13:15; Status DC Potassium Chloride/Water 100 ml @ 100 mls/hr Q1H IV ; Start 04/10/19 at 14:00; Stop 04/10/19 at 15:59; Status DC Sodium Bicarbonate (Sodium Bicarb Adult 8.4% Syr) 50 meq 1X ONCE IV Last administered on 04/10/19at 17:17; Start 04/10/19 at 13:30; Stop 04/10/19 at 13:31; Status DC Sodium Chloride 1,000 ml @ 150 mls/hr Q6H40M IV ; Start 04/10/19 at 13:28; Stop 04/11/19 at 00:46; Status DC Piperacillin Sod/ Tazobactam Sod 3.375 gm/Sodium Chloride 50 ml @ 100 mls/hr 1X ONCE IV Last administered on 04/10/19at 18:35; Start 04/10/19 at 13:45; Stop 04/10/19 at 14:14; Status DC Vancomycin HCl 250 ml @ 250 mls/hr 1X ONCE IV ; Start 04/10/19 at 13:45; Stop 04/10/19 at 14:44; Status UNV Sodium Chloride 1,000 ml @ 1,000 mls/hr 1X ONCE IV Last administered on 04/10/19at 13:45; Start 04/10/19 at 13:45; Stop 04/10/19 at 14:44; Status DC Vancomycin HCl 1.75 gm/Sodium Chloride 500 ml @ 250 mls/hr 1X ONCE IV ; Start 04/10/19 at 14:00; Stop 04/10/19 at 15:59; Status DC Iodixanol (Visipaque 320) 100 ml STK-MED ONCE .ROUTE ; Start 04/10/19 at 14:01; Stop 04/10/19 at 14:02; Status DC Heparin Sodium/ Sodium Chloride 500 ml @ As Directed STK-MED ONCE .ROUTE ; Start 04/10/19 at 14:02; Stop 04/10/19 at 14:02; Status DC Lidocaine HCl (Xylocaine-Mpf 1% 2ml Vial) 2 ml STK-MED ONCE .ROUTE ; Start 04/10/19 at 14:02; Stop 04/10/19 at 14:02; Status DC Lidocaine HCl (Lidocaine 1% 20ml Vial) 20 ml STK-MED ONCE .ROUTE ; Start 04/10/19 at 14:03; Stop 04/10/19 at 14:04; Status DC Heparin Sodium (Porcine) (Heparin Sodium) 10,000 unit STK-MED ONCE .ROUTE ; Start 04/10/19 at 15:16; Stop 04/10/19 at 15:16; Status DC Heparin Sodium/ Sodium Chloride (HEPARIN for ARTERIAL LINE FLUSH) 1,000 unit 1X ONCE IART Last administered on 04/10/19at 15:42; Start 04/10/19 at 15:30; Stop 04/10/19 at 23:39; Status DC Iodixanol (Visipaque 320) 104 ml 1X ONCE IART Last administered on 04/10/19at 15:42; Start 04/10/19 at 15:30; Stop 04/10/19 at 23:39; Status DC Heparin Sodium (Porcine) (Heparin Sodium) 4,000 unit 1X ONCE IV Last administered on 04/10/19at 15:42; Start 04/10/19 at 15:30; Stop 04/10/19 at 23:39; Status DC Lidocaine HCl (Lidocaine 1% 20ml Vial) 20 ml 1X ONCE INJ Last administered on 04/10/19at 15:42; Start 04/10/19 at 15:30; Stop 04/10/19 at 23:39; Status DC Atropine Sulfate (ATROPINE 1mg SYRINGE) 1 mg 1X ONCE IV Last administered on 04/10/19at 12:42; Start 04/10/19 at 12:42; Stop 04/10/19 at 15:42; Status DC Midazolam HCl (Versed) 5 mg 1X ONCE IV Last administered on 04/10/19at 13:15; Start 04/10/19 at 13:15; Stop 04/10/19 at 15:42; Status DC Vecuronium [place] (Norcuron Bolus) 10 mg STK-MED ONCE IV ; Start 04/10/19 at 16:54; Stop 04/10/19 at 16:55; Status DC Fentanyl Citrate (Fentanyl 2ml Vial) 100 mcg STK-MED ONCE .ROUTE ; Start 04/10/19 at 16:55; Stop 04/10/19 at 16:56; Status DC Fentanyl Citrate (Fentanyl 2ml Vial) 100 mcg 1X ONCE IV Last administered on 04/10/19at 17:16; Start 04/10/19 at 17:00; Stop 04/10/19 at 17:01; Status DC Midazolam HCl (Versed) 2 mg 1X ONCE IV ; Start 04/10/19 at 17:00; Stop 04/10/19 at 17:01; Status DC Magnesium Sulfate/ Dextrose 100 ml @ 100 mls/hr 1X ONCE IV Last administered on 04/10/19at 17:16; Start 04/10/19 at 18:00; Stop 04/10/19 at 18:59; Status DC Buspirone HCl (Buspar) 30 mg Q8HRS NG Last administered on 04/11/19at 21:13; Start 04/10/19 at 17:00; Stop 04/12/19 at 05:17; Status DC Acetaminophen (Tylenol) 650 mg Q4H NG Last administered on 04/12/19at 00:27; Start 04/10/19 at 17:00; Stop 04/12/19 at 03:15; Status DC Artificial Tears (Artificial Tears) 1 drop Q6HRS OU Last administered on 04/12/19at 00:27; Start 04/10/19 at 18:00; Stop 04/12/19 at 05:17; Status DC Artificial Tears (Artificial Tears) 1 drop PRN Q15MIN PRN OU DRY EYE; Start 04/10/19 at 17:00 Heparin Sodium (Porcine) (Heparin Sodium) 5,000 unit BID SQ ; Start 04/10/19 at 21:00; Status Cancel Pantoprazole Sodium (PROTONIX VIAL for IV PUSH) 40 mg DAILY IVP Last administered on 04/17/19at 08:27; Start 04/10/19 at 18:00 Fentanyl Citrate 30 ml @ 0 mls/hr CONT PRN IV PER PROTOCOL. Last administered on 04/10/19at 17:30; Start 04/10/19 at 17:00; Stop 04/14/19 at 13:51; Status DC Propofol 100 ml @ 0 mls/hr CONT PRN IV PER PROTOCOL. Last administered on 04/14/19at 04:56; Start 04/10/19 at 17:00; Stop 04/14/19 at 13:51; Status DC Midazolam HCl 50 mg/Sodium Chloride 50 ml @ 0 mls/hr CONT PRN IV PER PROTOCOL. Last administered on 04/12/19at 00:27; Start 04/10/19 at 17:00; Stop 04/14/19 at 13:51; Status DC Vecuronium [place] (Norcuron Bolus) 7 mg PRN Q1HR PRN IV SHIVERING Last administered on 04/11/19at 15:48; Start 04/10/19 at 17:00; Stop 04/14/19 at 13:51; Status DC Heparin Sodium/ Dextrose 250 ml @ 0 mls/hr CONT PRN IV PER PROTOCOL; Start 04/10/19 at 17:30; Stop 04/10/19 at 23:42; Status DC Heparin Sodium (Porcine) (Heparin Sodium) 2,150 unit PRN Q6HRS PRN IV FOR UFH LEVEL LESS THAN 0.2; Start 04/10/19 at 17:30; Stop 04/10/19 at 23:39; Status DC Heparin Sodium (Porcine) (Heparin Sodium) 1,050 unit PRN Q6HRS PRN IV FOR UFH LEVEL 0.2 - 0.29; Start 04/10/19 at 17:30; Stop 04/10/19 at 23:39; Status DC Hydralazine HCl (Apresoline Inj) 10 mg PRN Q6HRS PRN IVP ELEVATED BP, SEE COMMENTS; Start 04/10/19 at 18:00; Stop 04/14/19 at 13:00; Status DC Hydralazine HCl (Apresoline Inj) 20 mg STK-MED ONCE .ROUTE ; Start 04/10/19 at 17:56; Stop 04/10/19 at 17:56; Status DC Iohexol (Omnipaque 350 Mg/ml) 75 ml 1X ONCE IV Last administered on 04/10/19at 18:45; Start 04/10/19 at 18:45; Stop 04/10/19 at 18:46; Status DC Insulin Human Regular 100 unit/ Sodium Chloride 101 ml @ 0 mls/hr CONT PRN IV SEE I/O RECORD Last administered on 04/11/19at 10:23; Start 04/10/19 at 19:30; Stop 04/12/19 at 03:15; Status DC Magnesium Sulfate/ Dextrose 100 ml @ 100 mls/hr PRN DAILY PRN IV MAG level 2.4-3.0mg/dl Last administered on 04/11/19at 08:44; Start 04/10/19 at 20:30 Potassium Chloride/Water 100 ml @ 100 mls/hr PRN DAILY PRN IV K+ level 3.1- 3.4mEq/L Last administered on 04/11/19at 06:50; Start 04/10/19 at 20:30 Magnesium Sulfate/ Dextrose 100 ml @ 100 mls/hr 1X PRN IV MAG level 2.4- 3.0mg/dl Last administered on 04/10/19at 22:17; Start 04/10/19 at 22:00; Stop 04/11/19 at 01:56; Status DC Potassium Chloride/Water 100 ml @ 100 mls/hr 1X PRN IV K+ level 3.1-3.4mEq/L Last administered on 04/10/19at 22:16; Start 04/10/19 at 22:00; Stop 04/11/19 at 01:55; Status DC Norepinephrine Bitartrate 8 mg/ Dextrose 258 ml @ 13.855 mls/ hr CONT PRN IV PER PROTOCOL Last administered on 04/13/19at 13:22; Start 04/10/19 at 22:45; Stop 04/14/19 at 13:51; Status DC Heparin Sodium/ Dextrose 250 ml @ 0 mls/hr CONT PRN IV PER PROTOCOL Last administered on 04/11/19at 00:43; Start 04/10/19 at 23:45; Stop 04/11/19 at 09:36; Status DC Heparin Sodium (Porcine) (Heparin Sodium) 1,800 unit PRN Q6HRS PRN IV FOR UFH LEVEL LESS THAN 0.2; Start 04/10/19 at 23:45; Stop 04/11/19 at 09:54; Status DC Amiodarone HCl 450 mg/Dextrose 259 ml @ 0 mls/hr CONT PRN IV SEE I/O RECORD Last administered on 04/12/19at 11:52; Start 04/11/19 at 00:00; Stop 04/11/19 at 19:36; Status DC Dextrose/Sodium Chloride 1,000 ml @ 75 mls/hr [id number] IV Last administered on 04/11/19at 01:57; Start 04/11/19 at 01:00; Stop 04/11/19 at 10:53; Status DC Potassium Chloride/Water 100 ml @ 50 mls/hr PRN DAILY PRN IV K+ level less than 3.1 mEq/l; Start 04/11/19 at 02:00; Status Cancel Potassium Chloride/Water 100 ml @ 100 mls/hr PRN Q1HR PRN IV K<3.1; Start 04/11/19 at 02:00 Magnesium Sulfate/ Dextrose 100 ml @ 100 mls/hr PRN DAILY PRN IV MAG level 2.4-3.0mg/dl; Start 04/11/19 at 06:45; Status UNV Potassium Chloride/Water 100 ml @ 100 mls/hr PRN DAILY PRN IV K+ level 3.1- 3.4mEq/L; Start 04/11/19 at 06:45; Status UNV Atropine Sulfate (ATROPINE 0.5mg SYRINGE) 0.25 mg 1X ONCE IM ; Start 04/11/19 at 09:45; Stop 04/11/19 at 09:38; Status DC Atropine Sulfate (ATROPINE 1mg SYRINGE) 0.25 mg 1X ONCE IM Last administered on 04/11/19at 09:55; Start 04/11/19 at 09:45; Stop 04/11/19 at 09:46; Status DC Dopamine HCl/ Dextrose 250 ml @ 6.676 mls/ hr CONT PRN IV SEE I/O RECORD Last administered on 04/12/19at 20:21; Start 04/11/19 at 10:00; Stop 04/14/19 at 13:51; Status DC Sodium Chloride 1,000 ml @ 75 mls/hr [id number] IV Last administered on 04/11/19at 19:36; Start 04/11/19 at 12:00; Stop 04/13/19 at 15:18; Status DC Heparin Sodium (Porcine) (Heparin Sodium) 5,000 unit BID SQ Last administered on 04/14/19at 21:19; Start 04/11/19 at 21:00; Stop 04/15/19 at 12:18; Status DC Atropine Sulfate (ATROPINE 1mg SYRINGE) 1 mg STK-MED ONCE .ROUTE ; Start 04/10/19 at 15:16; Stop 04/11/19 at 15:16; Status DC Amiodarone HCl 450 mg/Dextrose 259 ml @ 33 mls/hr CONT PRN PRN IV SEE I/O RECORD Last administered on 04/13/19at 04:37; Start 04/12/19 at 08:15; Stop 04/14/19 at 13:51; Status DC Acetaminophen (Tylenol) 650 mg PRN Q6HRS PRN PEG MILD PAIN / TEMP Last ad ministered on 04/13/19at 00:02; Start 04/12/19 at 11:30 Dexmedetomidine HCl 400 mcg/ Sodium Chloride 100 ml @ 0 mls/hr CONT PRN IV ANXIETY / AGITATION Last administered on 04/15/19at 05:23; Start 04/13/19 at 08:00; Stop 04/16/19 at 11:22; Status DC Piperacillin Sod/ Tazobactam Sod 4.5 gm/Sodium Chloride 100 ml @ 200 mls/hr Q6HRS IV Last administered on 04/17/19at 06:17; Start 04/13/19 at 09:00 Sodium Chloride 1,000 ml @ 75 mls/hr [id number] IV ; Start 04/13/19 at 15:30; Status Cancel Sodium Chloride 1,000 ml @ 75 mls/hr [id number] IV Last administered on 04/14/19at 05:05; Start 04/13/19 at 15:45; Stop 04/14/19 at 18:32; Status DC Haloperidol Lactate (Haldol Inj) 2 mg PRN Q6HRS PRN IVP AGITATION 3RD CHOICE Last administered on 04/16/19at 05:48; Start 04/14/19 at 10:30 Furosemide (Lasix) 40 mg 1X ONCE IVP Last administered on 04/14/19at 13:19; Start 04/14/19 at 13:00; Stop 04/14/19 at 13:01; Status DC Hydralazine HCl (Apresoline Inj) 10 mg PRN Q4HRS PRN IVP ELEVATED BP, SEE COMMENTS Last administered on 04/17/19at 08:27; Start 04/14/19 at 13:00 Atropine Sulfate (ATROPINE 1mg SYRINGE) 1 mg STK-MED ONCE .ROUTE ; Start 04/10/19 at 10:00; Stop 04/14/19 at 13:34; Status DC Calcium Chloride 1,000 mg STK-MED ONCE IV ; Start 04/10/19 at 10:00; Stop 04/14/19 at 13:34; Status DC Metoprolol Tartrate (Lopressor Vial) 5 mg Q6HRS IVP Last administered on 04/17/19at 06:18; Start 04/14/19 at 14:30 Magnesium Sulfate 50 ml @ 25 mls/hr 1X ONCE IV Last administered on 04/14/19at 15:39; Start 04/14/19 at 15:00; Stop 04/14/19 at 16:59; Status DC Potassium Chloride/Water 100 ml @ 100 mls/hr Q1H IV Last administered on 04/14/19at 16:46; Start 04/14/19 at 15:00; Stop 04/14/19 at 16:59; Status DC Amiodarone HCl 450 mg/Dextrose 259 ml @ 17 mls/hr CONT PRN IV SEE I/O RECORD Last administered on 04/15/19at 05:22; Start 04/14/19 at 15:15; Stop 04/15/19 at 05:23; Status DC Lorazepam (Ativan Inj) 0.5 mg PRN Q4HRS PRN IVP ANXIETY / AGITATION; Start 04/15/19 at 08:15 Lorazepam (Ativan Inj) 1 mg PRN Q4HRS PRN IVP ANXIETY / AGITATION Last administered on 04/15/19at 23:51; Start 04/15/19 at 08:30 Potassium Chloride/Water 100 ml @ 100 mls/hr Q1H IV Last administered on 04/15/19at 13:05; Start 04/15/19 at 09:00; Stop 04/15/19 at 10:59; Status DC Lidocaine/ Epinephrine (LIDOCAINE 2%-EPI 1:100,000 multi-dose) 20 ml 1X ONCE IJ Last administered on 04/15/19at 11:09; Start 04/15/19 at 09:00; Stop 04/15/19 at 09:06; Status DC Bacitracin 38990 unit/Sodium Chloride 250 ml @ 0 mls/hr 1X ONCE IRR Last administered on 04/15/19at 11:45; Start 04/15/19 at 09:00; Stop 04/15/19 at 09:06; Status DC Cefazolin Sodium (Ancef) 1 gm 1X ONCE IVP Last administered on 04/15/19at 11:07; Start 04/15/19 at 09:00; Stop 04/15/19 at 09:06; Status DC Midazolam HCl (Versed) 2 mg STK-MED ONCE .ROUTE ; Start 04/15/19 at 09:38; Stop 04/15/19 at 09:38; Status DC Propofol 50 ml @ As Directed STK-MED ONCE IV ; Start 04/15/19 at 09:40; Stop 04/15/19 at 09:40; Status DC Furosemide (Lasix) 40 mg 1X ONCE IVP ; Start 04/15/19 at 10:15; Stop 04/15/19 at 10:16; Status DC Furosemide (Lasix) 40 mg STK-MED ONCE .ROUTE ; Start 04/15/19 at 10:03; Stop 04/15/19 at 10:03; Status DC Lidocaine/ Epinephrine (LIDOCAINE 2%-EPI 1:100,000 multi-dose) 20 ml STK-MED ONCE .ROUTE ; Start 04/15/19 at 10:08; Stop 04/15/19 at 10:09; Status DC Iohexol (Omnipaque 300 Mg/ml) 100 ml STK-MED ONCE .ROUTE ; Start 04/15/19 at 11:16; Stop 04/15/19 at 11:16; Status DC Iohexol (Omnipaque 300 Mg/ml) 10 ml 1X ONCE IART Last administered on 04/15/19at 11:17; Start 04/15/19 at 12:00; Stop 04/15/19 at 12:05; Status DC Info (CONTRAST GIVEN -- Rx MONITORING) 1 each PRN DAILY PRN MC SEE COMMENTS; Start 04/15/19 at 12:15; Stop 04/17/19 at 12:14 Info (No Anticoagulant Therapy) 1 ea CONT PRN PRN MC PER PROTOCOL; Start 04/15/19 at 12:15 Cefazolin Sodium (Ancef) 1 gm 1X ONCE IVP ; Start 04/15/19 at 12:30; Stop 04/15/19 at 12:31; Status UNV Acetaminophen (Tylenol) 650 mg PRN Q6HRS PRN PO MILD PAIN 1-3; Start 04/15/19 at 12:15 Labetalol HCl (Normodyne Iv Push) 20 mg PRN Q2HR PRN IVP HYPERTENSION Last administered on 04/17/19at 02:14; Start 04/15/19 at 16:00 Nitroglycerin (Nitro-Bid Oint) 1 inch Q6HRS TP Last administered on 04/15/19at 17:05; Start 04/15/19 at 18:00; Stop 04/15/19 at 20:46; Status DC Nitroglycerin/ Dextrose 250 ml @ 1.5 mls/hr CONT PRN IV SEE I/O RECORD Last administered on 04/16/19at 13:12; Start 04/15/19 at 20:45; Stop 04/16/19 at 18:25; Status DC Potassium Chloride (Klor-Con) 40 meq Q2H PO ; Start 04/16/19 at 08:00; Stop 04/16/19 at 07:52; Status DC Potassium Chloride/Water 100 ml @ 100 mls/hr Q1H IV Last administered on 04/16/19at 09:18; Start 04/16/19 at 08:00; Stop 04/16/19 at 09:59; Status DC Nitroglycerin (Nitro-Bid Oint) 1 inch Q6HRS TP Last administered on 04/17/19at 06:25; Start 04/16/19 at 12:00 Nitroglycerin (Nitro-Bid Oint) 1 inch 1X ONCE TP Last administered on 04/16/19at 09:48; Start 04/16/19 at 09:45; Stop 04/16/19 at 09:46; Status DC Amiodarone HCl 150 mg/Dextrose 103 ml @ 618 mls/hr 1X ONCE IV Last administered on 04/16/19at 09:48; Start 04/16/19 at 10:00; Stop 04/16/19 at 10:09; Status DC Amiodarone HCl 450 mg/Dextrose 259 ml @ 0 mls/hr CONT PRN IV SEE I/O RECORD Last administered on 04/16/19at 23:01; Start 04/16/19 at 09:30; Stop 04/16/19 at 23:14; Status DC Potassium Chloride/Water 100 ml @ 100 mls/hr Q1H IV Last administered on 04/16/19at 13:14; Start 04/16/19 at 10:00; Stop 04/16/19 at 11:59; Status DC Aspirin (Aspirin Rectal Supp) 150 mg 1X ONCE OR Last administered on 04/16/19at 13:14; Start 04/16/19 at 10:30; Stop 04/16/19 at 10:31; Status DC Amino Acids/ Electrolytes/ Dextrose 1,000 ml @ 80 mls/hr [id number] IV Last administered on 04/17/19at 06:19; Start 04/16/19 at 16:00 Furosemide (Lasix) 40 mg 1X ONCE IVP Last administered on 04/16/19at 17:42; Start 04/16/19 at 18:00; Stop 04/16/19 at 18:01; Status DC Potassium Chloride/Water 100 ml @ 100 mls/hr 1X ONCE IV Last administered on 04/17/19at 09:06; Start 04/17/19 at 09:00; Stop 04/17/19 at 09:59; Status DC Nicardipine HCl 50 mg/Sodium Chloride 250 ml @ 100 mls/hr CONT PRN IV SEE I/O RECORD; Start 04/17/19 at 08:45 Potassium Chloride/Water 100 ml @ 100 mls/hr Q1H IV Last administered on 04/17/19at 09:07; Start 04/17/19 at 09:00; Stop 04/17/19 at 10:59 Active Scripts Active Reported Celebrex (Celecoxib) 100 Mg Capsule 1 Cap PO BID Verapamil Er (Verapamil Hcl) 240 Mg Cap24h.pel 1 Cap PO DAILY Vitals/I & O Vital Sign - Last 24 Hours 04/16/19 04/16/19 04/16/19 04/16/19 13:10 13:13 13:13 14:53 Pulse 123 110 110 71 Resp 20 B/P (MAP) 158/77 (104) 150/82 150/82 175/85 Pulse Ox 94 O2 Delivery Nasal Cannula O2 Flow Rate 3.0 04/16/19 04/16/19 04/16/19 04/16/19 15:08 16:54 17:52 19:33 Temp 97.9 98.1 97.9 98.1 Pulse 81 67 115 119 Resp 18 20 B/P (MAP) 175/85 (115) 183/86 161/83 155/84 (107) Pulse Ox 94 97 O2 Delivery Nasal Cannula Nasal Cannula O2 Flow Rate 3.0 3.0 04/16/19 04/16/19 04/16/19 04/16/19 20:00 22:35 23:05 23:07 Temp 98.3 98.3 Pulse 76 76 76 Resp 18 B/P (MAP) 154/69 (97) 154/69 154/69 Pulse Ox 95 O2 Delivery Nasal Cannula Nasal Cannula O2 Flow Rate 3.0 3.0 04/16/19 04/17/19 04/17/19 04/17/19 23:33 00:33 01:33 02:14 Pulse 74 71 72 72 B/P (MAP) 160/74 (102) 172/82 (112) 168/79 (108) 168/79 04/17/19 04/17/19 04/17/19 04/17/19 02:33 03:33 04:33 04:44 Temp 97.5 97.5 Pulse 70 67 75 63 Resp 20 B/P (MAP) 155/79 (104) 166/80 (108) 180/87 (118) 150/73 (98) Pulse Ox 98 O2 Delivery Nasal Cannula O2 Flow Rate 3.0 04/17/19 04/17/19 04/17/19 04/17/19 05:33 06:18 06:25 07:00 Temp 97.5 97.5 Pulse 62 68 72 74 Resp 20 B/P (MAP) 183/91 (121) 183/91 183/91 185/88 (120) Pulse Ox 94 O2 Delivery Nasal Cannula O2 Flow Rate 3.0 04/17/19 04/17/19 04/17/19 08:00 08:27 09:35 Pulse 74 75 B/P (MAP) 185/88 176/107 (130) O2 Delivery Nasal Cannula O2 Flow Rate 3.0 Intake and Output 04/16/19 04/16/19 04/17/19 15:00 23:00 07:00 Intake Total 303 ml 60 ml 0 ml Output Total 320 ml 2650 ml 750 ml Balance -17 ml -2590 ml -750 ml GAIL WOOD MD Apr 17, 2019 10:15
--- NOTE | 2019-04-17 10:33 | RAD ---
Single view of the chest. 04/17/2019 9:00 AM Indication: Respiratory failure Comparison: Chest radiograph, yesterday Findings: Stable right internal jugular central line. Similar appearance of left-sided subclavian pacemaker/ICD device. Some improvement in lung aeration is noted in the interim. Small layering effusions with underlying atelectasis persist. Mild diffuse interstitial thickening is similar. IMPRESSION: Some improvement in lung aeration in the interim. Persistent small pleural effusions with underlying atelectasis and mild interstitial thickening Electronically signed by: Arthur Patrick MD (04/17/2019 10:30 AM) [id number]
--- NOTE | 2019-04-17 11:15 | NUR ---
SS following up with discharge planning. Pt transferred from ICU. Per pt's RN, pt has passed swallow and is now on Dysphagia II diet with thickened liquids. PT/OT ordered. Pt is currently 1:1. SS will continue to follow for discharge planning.
[2019-04-17] MEDS ORDERED: POTASSIUM BICARB 20 MEQ EFFERVESCENT TABLET. PO ONE (11:45)
[2019-04-17] MEDS ORDERED: hydroCHLOROthiazide 12.5 MG CAPSULE PO SCH (11:45)
--- NOTE | 2019-04-17 11:53 | PDOC ---
JUAN J GONZALEZ CORRECTIONS COUNSELOR 04/17/19 1153: CARDIO Progress Notes Date and Time Date of Service 04/17/2019 Time of Evaluation 1000 Subjective Subjective: No Chest Pain, No shortness of breath, No Palpitations Vitals Vitals Vital Signs Date Time Temp Pulse Resp B/P (MAP) Pulse Ox O2 Delivery O2 Flow Rate FiO2 04/17/19 11:35 70 181/91 (121) 04/17/19 11:00 97.7 20 97 Nasal Cannula 3.0 97.7 Weight Weight [ ] Input and Output Intake and Output Intake and Output 04/17/19 07:00 Intake Total 363 ml Output Total 3720 ml Balance -3357 ml Intake Oral 0 ml IV Total 303 ml Other 60 ml Output Urine Total 3720 ml # Bowel Movements 5 Laboratory Labs Laboratory Tests Test 04/16/19 16:20 04/17/19 07:55 Sodium Level 147 mmol/L (136-145) 144 mmol/L (136-145) Potassium Level 3.2 mmol/L (3.5-5.1) 3.1 mmol/L (3.5-5.1) Chloride Level 113 mmol/L (98-107) 108 mmol/L (98-107) Carbon Dioxide Level 26 mmol/L (21-32) 28 mmol/L (21-32) Anion Gap 8 (6-14) 8 (6-14) Blood Urea Nitrogen 18 mg/dL (7-20) 21 mg/dL (7-20) Creatinine 0.6 mg/dL (0.6-1.0) 0.6 mg/dL (0.6-1.0) Estimated GFR (Cockcroft-Gault) 102.0 102.0 Glucose Level 134 mg/dL (70-99) 147 mg/dL (70-99) Calcium Level 7.4 mg/dL (8.5-10.1) 8.6 mg/dL (8.5-10.1) White Blood Count 10.9 x10^3/uL (4.0-11.0) Red Blood Count 2.94 x10^6/uL (3.50-5.40) Hemoglobin 8.6 g/dL (12.0-15.5) Hematocrit 25.3 % (36.0-47.0) Mean Corpuscular Volume 86 fL (79-100) Mean Corpuscular Hemoglobin 29 pg (25-35) Mean Corpuscular Hemoglobin Concent 34 g/dL (31-37) Red Cell Distribution Width 13.5 % (11.5-14.5) Platelet Count 243 x10^3/uL (140-400) Neutrophils (%) (Auto) 70 % (31-73) Lymphocytes (%) (Auto) 14 % (24-48) Monocytes (%) (Auto) 15 % (0-9) Eosinophils (%) (Auto) 1 % (0-3) Basophils (%) (Auto) 0 % (0-3) Neutrophils # (Auto) 7.7 x10^3/uL (1.8-7.7) Lymphocytes # (Auto) 1.5 x10^3/uL (1.0-4.8) Monocytes # (Auto) 1.7 x10^3/uL (0.0-1.1) Eosinophils # (Auto) 0.1 x10^3/uL (0.0-0.7) Basophils # (Auto) 0.0 x10^3/uL (0.0-0.2) BUN/Creatinine Ratio 35 (6-20) Total Bilirubin 0.6 mg/dL (0.2-1.0) Aspartate Amino Transf (AST/SGOT) 70 U/L (15-37) Alanine Aminotransferase (ALT/SGPT) 83 U/L (14-59) Alkaline Phosphatase 58 U/L (46-116) Total Protein 5.2 g/dL (6.4-8.2) Albumin 1.9 g/dL (3.4-5.0) Albumin/Globulin Ratio 0.6 (1.0-1.7) Microbiology Micro Microbiology 04/13/19 - Final, Resulted 04/13/19 - Final, Resulted 04/13/19 - Final, Resulted 04/13/19 - Preliminary, Resulted 04/13/19 - Preliminary, Resulted 04/13/19 - Preliminary, Resulted 04/13/19 Gram Stain Evaluation - Final, Resulted 04/13/19 Sputum Culture - Final, Resulted 04/13/19 Sputum Result 1 - Final, Resulted 04/10/19 Blood Culture - Final, Complete NO GROWTH AFTER 5 DAYS Physical Exam HEENT: Neck Supple W Full Motion Chest: Symmetric LUNGS: Other (faint basilar crackles) Heart: RRR (SR), irregularly irregular (AFIB RVR) Abdomen: Soft N/T Extremities: No Edema, No Calf Tenderness Neurology: alert, oriented, follow commands Assessment Assessment 1. 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 8 min to ROSC. No CAD/PE. 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 Acute respiratory failure secondary to #1. Extubated 04/14, doing well 3. Accelerated HTN: labile 4. Severe sinus bradycardia, resolved 5. PAFIB: New noted with AFIB RVR yesterday AM after fall in the setting of hypokalemia. maintaining SR with breif burst overnight 6. Nontraumatic fall: fell out of bed 7. Metabolic encephalopathy: improved 8 . Hyperlipidemia 9. AICD: S/P biotronik, dual chamber for secondary prevention of SCA. No complications. 10. Acute diastolic CHF: possibly induced by AFIB RVR. EF at 55% 11. Family hx of sudden : parents in their 60s with possible cardiac arrest 12. Hypokalemia: K 3.1 Recommendations 1. If she passes her swallow study then will transition to norvasc, metoprolol, and HCTZ. Continue NTG paste for now. Will titrate per BP trend continue with PRN antiHTN. 2. Replace K 3. Aggressive IS 4. ASA, statin 5. Amiodarone therapy. Will noted AFIB burden in her next follow up then will consider for NOAC as an outpt. Continue with ASA. 6. Follow up in office for wound check in the office on May 01 at 1PM. Follow up with Dr. Spain May 21 at 2:15 PM MATTHEW SPAIN MD 04/17/19 1620: CARDIO Progress Notes Assessment Assessment Patient seen and examined. Agree with LEGAL RECORDS MANAGER's assessment and plan. PAF presently in sinus rhythm. Continue amiodarone for rhythm maintenance. Follow-up with our office as scheduled. JUAN J GONZALEZ APRN Apr 17, 2019 11:53 MATTHEW SPAIN MD Apr 17, 2019 16:20
[2019-04-17] MEDS: amLODIPine BESYLATE 10 MG TABLET PO SCH (12:12)
[2019-04-17] MEDS: METOPROLOL TART IMMED RELEASE 50 MG TABLET. PO SCH ×2 (12:12→21:09)
--- NOTE | 2019-04-17 13:18 | PDOC ---
PULMONARY PROGRESS NOTES Subjective extubated 04/14 S/P AICD on 04/15 fully awake, no soa Vitals Vital Signs Date Time Temp Pulse Resp B/P (MAP) Pulse Ox O2 Delivery O2 Flow Rate FiO2 04/17/19 12:36 66 168/86 (113) 04/17/19 11:00 97.7 20 97 Nasal Cannula 3.0 97.7 ROS: No Nausea, No Chest Pain, No Abdominal Pain, No Increase Cough General: Alert, No acute distress Lungs: Clear Cardiovascular: Other (afib ) Abdomen: Soft, Non-tender Neuro Exam: Alert Extremities: No Edema Skin: Warm, Dry Labs Laboratory Tests Test 04/16/19 06:30 04/16/19 16:20 04/17/19 07:55 White Blood Count 11.1 x10^3/uL (4.0-11.0) 10.9 x10^3/uL (4.0-11.0) Red Blood Count 2.83 x10^6/uL (3.50-5.40) 2.94 x10^6/uL (3.50-5.40) Hemoglobin 8.2 g/dL (12.0-15.5) 8.6 g/dL (12.0-15.5) Hematocrit 24.4 % (36.0-47.0) 25.3 % (36.0-47.0) Mean Corpuscular Volume 86 fL (79-100) 86 fL (79-100) Mean Corpuscular Hemoglobin 29 pg (25-35) 29 pg (25-35) Mean Corpuscular Hemoglobin Concent 34 g/dL (31-37) 34 g/dL (31-37) Red Cell Distribution Width 13.4 % (11.5-14.5) 13.5 % (11.5-14.5) Platelet Count 217 x10^3/uL (140-400) 243 x10^3/uL (140-400) Sodium Level 147 mmol/L (136-145) 147 mmol/L (136-145) 144 mmol/L (136-145) Potassium Level 2.8 mmol/L (3.5-5.1) 3.2 mmol/L (3.5-5.1) 3.1 mmol/L (3.5-5.1) Chloride Level 111 mmol/L (98-107) 113 mmol/L (98-107) 108 mmol/L (98-107) Carbon Dioxide Level 26 mmol/L (21-32) 26 mmol/L (21-32) 28 mmol/L (21-32) Anion Gap 10 (6-14) 8 (6-14) 8 (6-14) Blood Urea Nitrogen 22 mg/dL (7-20) 18 mg/dL (7-20) 21 mg/dL (7-20) Creatinine 0.7 mg/dL (0.6-1.0) 0.6 mg/dL (0.6-1.0) 0.6 mg/dL (0.6-1.0) Estimated GFR (Cockcroft-Gault) 85.4 102.0 102.0 Glucose Level 158 mg/dL (70-99) 134 mg/dL (70-99) 147 mg/dL (70-99) Calcium Level 8.2 mg/dL (8.5-10.1) 7.4 mg/dL (8.5-10.1) 8.6 mg/dL (8.5-10.1) Magnesium Level 2.1 mg/dL (1.8-2.4) Neutrophils (%) (Auto) 70 % (31-73) Lymphocytes (%) (Auto) 14 % (24-48) Monocytes (%) (Auto) 15 % (0-9) Eosinophils (%) (Auto) 1 % (0-3) Basophils (%) (Auto) 0 % (0-3) Neutrophils # (Auto) 7.7 x10^3/uL (1.8-7.7) Lymphocytes # (Auto) 1.5 x10^3/uL (1.0-4.8) Monocytes # (Auto) 1.7 x10^3/uL (0.0-1.1) Eosinophils # (Auto) 0.1 x10^3/uL (0.0-0.7) Basophils # (Auto) 0.0 x10^3/uL (0.0-0.2) BUN/Creatinine Ratio 35 (6-20) Total Bilirubin 0.6 mg/dL (0.2-1.0) Aspartate Amino Transf (AST/SGOT) 70 U/L (15-37) Alanine Aminotransferase (ALT/SGPT) 83 U/L (14-59) Alkaline Phosphatase 58 U/L (46-116) Total Protein 5.2 g/dL (6.4-8.2) Albumin 1.9 g/dL (3.4-5.0) Albumin/Globulin Ratio 0.6 (1.0-1.7) Laboratory Tests Test 04/16/19 16:20 04/17/19 07:55 Sodium Level 147 mmol/L (136-145) 144 mmol/L (136-145) Potassium Level 3.2 mmol/L (3.5-5.1) 3.1 mmol/L (3.5-5.1) Chloride Level 113 mmol/L (98-107) 108 mmol/L (98-107) Carbon Dioxide Level 26 mmol/L (21-32) 28 mmol/L (21-32) Anion Gap 8 (6-14) 8 (6-14) Blood Urea Nitrogen 18 mg/dL (7-20) 21 mg/dL (7-20) Creatinine 0.6 mg/dL (0.6-1.0) 0.6 mg/dL (0.6-1.0) Estimated GFR (Cockcroft-Gault) 102.0 102.0 Glucose Level 134 mg/dL (70-99) 147 mg/dL (70-99) Calcium Level 7.4 mg/dL (8.5-10.1) 8.6 mg/dL (8.5-10.1) White Blood Count 10.9 x10^3/uL (4.0-11.0) Red Blood Count 2.94 x10^6/uL (3.50-5.40) Hemoglobin 8.6 g/dL (12.0-15.5) Hematocrit 25.3 % (36.0-47.0) Mean Corpuscular Volume 86 fL (79-100) Mean Corpuscular Hemoglobin 29 pg (25-35) Mean Corpuscular Hemoglobin Concent 34 g/dL (31-37) Red Cell Distribution Width 13.5 % (11.5-14.5) Platelet Count 243 x10^3/uL (140-400) Neutrophils (%) (Auto) 70 % (31-73) Lymphocytes (%) (Auto) 14 % (24-48) Monocytes (%) (Auto) 15 % (0-9) Eosinophils (%) (Auto) 1 % (0-3) Basophils (%) (Auto) 0 % (0-3) Neutrophils # (Auto) 7.7 x10^3/uL (1.8-7.7) Lymphocytes # (Auto) 1.5 x10^3/uL (1.0-4.8) Monocytes # (Auto) 1.7 x10^3/uL (0.0-1.1) Eosinophils # (Auto) 0.1 x10^3/uL (0.0-0.7) Basophils # (Auto) 0.0 x10^3/uL (0.0-0.2) BUN/Creatinine Ratio 35 (6-20) Total Bilirubin 0.6 mg/dL (0.2-1.0) Aspartate Amino Transf (AST/SGOT) 70 U/L (15-37) Alanine Aminotransferase (ALT/SGPT) 83 U/L (14-59) Alkaline Phosphatase 58 U/L (46-116) Total Protein 5.2 g/dL (6.4-8.2) Albumin 1.9 g/dL (3.4-5.0) Albumin/Globulin Ratio 0.6 (1.0-1.7) Medications Active Scripts Medications Dose Route/Sig Max Daily Dose Days Date Category Celebrex (Celecoxib) 100 Mg Capsule 1 Cap PO BID 04/11/19 Reported Verapamil Er (Verapamil Hcl) 240 Mg Cap24h.pel 1 Cap PO DAILY 04/11/19 Reported Comments cxr reviewed 04/15 increase bilateral infiltrate c/w CHF CTA CHEST IMPRESSION: 1. No pulmonary embolus identified within the main, lobar or segmental pulmonary arteries. 2. Layering consolidative changes in the lungs bilaterally greater on the left favored to represent pulmonary edema. Superimposed infectious process is difficult to exclude. FINDINGS 1. Hemodynamics: Left ventricular end-diastolic pressure 5 mmHg. No pullback gradient across the aortic valve. 2. Left ventriculography: Normal left ventricle systolic function with ejection fraction estimated at 55%. No significant mitral regurgitation seen. 3. Coronary angiography: a. The left main coronary artery arose from the left sinus of Valsalva, gave rise to the left anterior descending and left circumflex arteries and did not show any significant stenosis. b. The left anterior descending artery showed 30% stenosis in the midsegment. The diagonal branch showed 50% stenosis in the proximal segment. c. The left circumflex artery did not show any significant stenosis. d. The right coronary artery was a large and dominant vessel arising from the right sinus of Valsalva that showed 50% stenosis in the midsegment. This was physiologically insignificant based on IFR measurement of 1.0. Conclusion 1. Nonobstructive coronary artery disease. 50% stenosis involving dominant right coronary artery that was physiologically not significant based on IFR measurement. The diagonal branch which is a small to medium caliber vessel also showed 50% proximal segment stenosis. 2. Normal left ventricle systolic function with ejection fraction estimated at 55%. Recommendations Consider AICD implantation for secondary prevention of sudden cardiac if workup for pulmonary embolism as negative Impression . IMPRESSION: 1. Acute respiratory failure due to [id number] cardiopulmonary arrest, etiology unclear. extubated, doing well 2. Status post emergent cardiac catheterization revealing normal ejection fraction, nonobstructive coronary artery disease, 50% stenosis involving the dominant right coronary artery. Normal left ventricular ejection fraction estimated at 55%. 3. Hypertension. 4. Recent acute bronchitis. 5. Abnormal ct chest with bilateral infiltrates 6. CXR c/w CHF 7. afib RVR Plan . cont. supplemental oxygent o keep sats above 92 % cardiology following --- rakel. recs--- S/P AICD on 04/15/2019 AFIB RVR per cardiology HTN per PCP/ cardiology-- CT chest was (-) for PE replace electrolytes cont. nebs cont. ABXS dysphagia diet cont DVT/GI PPX much improved pulmonary status discussed w RN / family ABDOULAYE CAT MD Apr 17, 2019 13:18
--- NOTE | 2019-04-17 13:56 | PDOC ---
PROGRESS NOTES Chief Complaint Chief Complaint Status post cardiac arrest Status post cardiac cath with no flow limiting lesions evident AICD placement on 04/15/2019 Arrhythmia, patient will need AICD once more stable. Delirium, patient can be easily redirected, no focal deficits, no evidence of seizure activity on EEG History of essential hypertension History of dyslipidemia bracycardia most likely due to amiodarone Leukocytosis reactive most likely but will cover with ATB for possible aspiration pneumonia Plan: supportive measures Much more awake alert and oriented compared to yesterday from the neurological standpoint of view reassurance has been provided to her at bedside ACID care as per client development consultant We'll consult PT She might need to be transition to a intermediate facility will follow recommendations from physical therapy Zosyn Continue following cardiology recommendations regarding meds replace potassium patient may be moved out of the ICU once cleared by consultants History of Present Illness History of Present Illness Patient alert awake oriented in person time place and situation, today responding very well to all the questions. quite pleased with her re sponse and reassurances been provided. Vitals Vitals Vital Signs Date Time Temp Pulse Resp B/P (MAP) Pulse Ox O2 Delivery O2 Flow Rate FiO2 04/17/19 12:36 66 168/86 (113) 04/17/19 11:00 97.7 20 97 Nasal Cannula 3.0 97.7 Physical Exam General: Other (remains intubated) Heart: Regular rate Lungs: Clear Abdomen: Normal bowel sounds Extremities: No cyanosis, No edema Skin: No significant lesion Labs LABS Laboratory Tests Test 04/16/19 16:20 04/17/19 07:55 Sodium Level 147 mmol/L (136-145) 144 mmol/L (136-145) Potassium Level 3.2 mmol/L (3.5-5.1) 3.1 mmol/L (3.5-5.1) Chloride Level 113 mmol/L (98-107) 108 mmol/L (98-107) Carbon Dioxide Level 26 mmol/L (21-32) 28 mmol/L (21-32) Anion Gap 8 (6-14) 8 (6-14) Blood Urea Nitrogen 18 mg/dL (7-20) 21 mg/dL (7-20) Creatinine 0.6 mg/dL (0.6-1.0) 0.6 mg/dL (0.6-1.0) Estimated GFR (Cockcroft-Gault) 102.0 102.0 Glucose Level 134 mg/dL (70-99) 147 mg/dL (70-99) Calcium Level 7.4 mg/dL (8.5-10.1) 8.6 mg/dL (8.5-10.1) White Blood Count 10.9 x10^3/uL (4.0-11.0) Red Blood Count 2.94 x10^6/uL (3.50-5.40) Hemoglobin 8.6 g/dL (12.0-15.5) Hematocrit 25.3 % (36.0-47.0) Mean Corpuscular Volume 86 fL (79-100) Mean Corpuscular Hemoglobin 29 pg (25-35) Mean Corpuscular Hemoglobin Concent 34 g/dL (31-37) Red Cell Distribution Width 13.5 % (11.5-14.5) Platelet Count 243 x10^3/uL (140-400) Neutrophils (%) (Auto) 70 % (31-73) Lymphocytes (%) (Auto) 14 % (24-48) Monocytes (%) (Auto) 15 % (0-9) Eosinophils (%) (Auto) 1 % (0-3) Basophils (%) (Auto) 0 % (0-3) Neutrophils # (Auto) 7.7 x10^3/uL (1.8-7.7) Lymphocytes # (Auto) 1.5 x10^3/uL (1.0-4.8) Monocytes # (Auto) 1.7 x10^3/uL (0.0-1.1) Eosinophils # (Auto) 0.1 x10^3/uL (0.0-0.7) Basophils # (Auto) 0.0 x10^3/uL (0.0-0.2) BUN/Creatinine Ratio 35 (6-20) Total Bilirubin 0.6 mg/dL (0.2-1.0) Aspartate Amino Transf (AST/SGOT) 70 U/L (15-37) Alanine Aminotransferase (ALT/SGPT) 83 U/L (14-59) Alkaline Phosphatase 58 U/L (46-116) Total Protein 5.2 g/dL (6.4-8.2) Albumin 1.9 g/dL (3.4-5.0) Albumin/Globulin Ratio 0.6 (1.0-1.7) Review of Systems Review of Systems 10 point review of system is negative Assessment and Plan Assessmemt and Plan Problems Medical Problems: (1) Acute respiratory acidosis Status: Acute (2) Cardiorespiratory arrest Status: Acute (3) Elevated d-dimer Status: Acute (4) Elevated troponin Status: Acute (5) Hyperglycemia Status: Acute (6) Hypokalemia Status: Acute (7) NSTEMI (non-ST elevated myocardial infarction) Status: Acute (8) Pneumonia Status: Acute (9) Sepsis Status: Acute (10) Severe sepsis Status: Acute Comment Review of Relevant I have reviewed the following items fracisco (where applicable) has been applied. Labs Laboratory Tests Test 04/16/19 06:30 04/16/19 16:20 04/17/19 07:55 White Blood Count 11.1 x10^3/uL (4.0-11.0) 10.9 x10^3/uL (4.0-11.0) Red Blood Count 2.83 x10^6/uL (3.50-5.40) 2.94 x10^6/uL (3.50-5.40) Hemoglobin 8.2 g/dL (12.0-15.5) 8.6 g/dL (12.0-15.5) Hematocrit 24.4 % (36.0-47.0) 25.3 % (36.0-47.0) Mean Corpuscular Volume 86 fL (79-100) 86 fL (79-100) Mean Corpuscular Hemoglobin 29 pg (25-35) 29 pg (25-35) Mean Corpuscular Hemoglobin Concent 34 g/dL (31-37) 34 g/dL (31-37) Red Cell Distribution Width 13.4 % (11.5-14.5) 13.5 % (11.5-14.5) Platelet Count 217 x10^3/uL (140-400) 243 x10^3/uL (140-400) Sodium Level 147 mmol/L (136-145) 147 mmol/L (136-145) 144 mmol/L (136-145) Potassium Level 2.8 mmol/L (3.5-5.1) 3.2 mmol/L (3.5-5.1) 3.1 mmol/L (3.5-5.1) Chloride Level 111 mmol/L (98-107) 113 mmol/L (98-107) 108 mmol/L (98-107) Carbon Dioxide Level 26 mmol/L (21-32) 26 mmol/L (21-32) 28 mmol/L (21-32) Anion Gap 10 (6-14) 8 (6-14) 8 (6-14) Blood Urea Nitrogen 22 mg/dL (7-20) 18 mg/dL (7-20) 21 mg/dL (7-20) Creatinine 0.7 mg/dL (0.6-1.0) 0.6 mg/dL (0.6-1.0) 0.6 mg/dL (0.6-1.0) Estimated GFR (Cockcroft-Gault) 85.4 102.0 102.0 Glucose Level 158 mg/dL (70-99) 134 mg/dL (70-99) 147 mg/dL (70-99) Calcium Level 8.2 mg/dL (8.5-10.1) 7.4 mg/dL (8.5-10.1) 8.6 mg/dL (8.5-10.1) Magnesium Level 2.1 mg/dL (1.8-2.4) Neutrophils (%) (Auto) 70 % (31-73) Lymphocytes (%) (Auto) 14 % (24-48) Monocytes (%) (Auto) 15 % (0-9) Eosinophils (%) (Auto) 1 % (0-3) Basophils (%) (Auto) 0 % (0-3) Neutrophils # (Auto) 7.7 x10^3/uL (1.8-7.7) Lymphocytes # (Auto) 1.5 x10^3/uL (1.0-4.8) Monocytes # (Auto) 1.7 x10^3/uL (0.0-1.1) Eosinophils # (Auto) 0.1 x10^3/uL (0.0-0.7) Basophils # (Auto) 0.0 x10^3/uL (0.0-0.2) BUN/Creatinine Ratio 35 (6-20) Total Bilirubin 0.6 mg/dL (0.2-1.0) Aspartate Amino Transf (AST/SGOT) 70 U/L (15-37) Alanine Aminotransferase (ALT/SGPT) 83 U/L (14-59) Alkaline Phosphatase 58 U/L (46-116) Total Protein 5.2 g/dL (6.4-8.2) Albumin 1.9 g/dL (3.4-5.0) Albumin/Globulin Ratio 0.6 (1.0-1.7) Laboratory Tests Test 04/16/19 16:20 04/17/19 07:55 Sodium Level 147 mmol/L (136-145) 144 mmol/L (136-145) Potassium Level 3.2 mmol/L (3.5-5.1) 3.1 mmol/L (3.5-5.1) Chloride Level 113 mmol/L (98-107) 108 mmol/L (98-107) Carbon Dioxide Level 26 mmol/L (21-32) 28 mmol/L (21-32) Anion Gap 8 (6-14) 8 (6-14) Blood Urea Nitrogen 18 mg/dL (7-20) 21 mg/dL (7-20) Creatinine 0.6 mg/dL (0.6-1.0) 0.6 mg/dL (0.6-1.0) Estimated GFR (Cockcroft-Gault) 102.0 102.0 Glucose Level 134 mg/dL (70-99) 147 mg/dL (70-99) Calcium Level 7.4 mg/dL (8.5-10.1) 8.6 mg/dL (8.5-10.1) White Blood Count 10.9 x10^3/uL (4.0-11.0) Red Blood Count 2.94 x10^6/uL (3.50-5.40) Hemoglobin 8.6 g/dL (12.0-15.5) Hematocrit 25.3 % (36.0-47.0) Mean Corpuscular Volume 86 fL (79-100) Mean Corpuscular Hemoglobin 29 pg (25-35) Mean Corpuscular Hemoglobin Concent 34 g/dL (31-37) Red Cell Distribution Width 13.5 % (11.5-14.5) Platelet Count 243 x10^3/uL (140-400) Neutrophils (%) (Auto) 70 % (31-73) Lymphocytes (%) (Auto) 14 % (24-48) Monocytes (%) (Auto) 15 % (0-9) Eosinophils (%) (Auto) 1 % (0-3) Basophils (%) (Auto) 0 % (0-3) Neutrophils # (Auto) 7.7 x10^3/uL (1.8-7.7) Lymphocytes # (Auto) 1.5 x10^3/uL (1.0-4.8) Monocytes # (Auto) 1.7 x10^3/uL (0.0-1.1) Eosinophils # (Auto) 0.1 x10^3/uL (0.0-0.7) Basophils # (Auto) 0.0 x10^3/uL (0.0-0.2) BUN/Creatinine Ratio 35 (6-20) Total Bilirubin 0.6 mg/dL (0.2-1.0) Aspartate Amino Transf (AST/SGOT) 70 U/L (15-37) Alanine Aminotransferase (ALT/SGPT) 83 U/L (14-59) Alkaline Phosphatase 58 U/L (46-116) Total Protein 5.2 g/dL (6.4-8.2) Albumin 1.9 g/dL (3.4-5.0) Albumin/Globulin Ratio 0.6 (1.0-1.7) Microbiology 04/13/19 - Final, Resulted 04/13/19 - Final, Resulted 04/13/19 - Final, Resulted 04/13/19 - Preliminary, Resulted 04/13/19 - Preliminary, Resulted 04/13/19 - Preliminary, Resulted 04/13/19 Gram Stain Evaluation - Final, Resulted 04/13/19 Sputum Culture - Final, Resulted 04/13/19 Sputum Result 1 - Final, Resulted 04/10/19 Blood Culture - Final, Complete NO GROWTH AFTER 5 DAYS Medications Current Medications Norepinephrine Bitartrate 8 mg/ Dextrose 258 ml @ 13.855 mls/ hr 1X ONCE IV Last administered on 04/10/19at 12:40; Start 04/10/19 at 12:30; Stop 04/10/19 at 12:31; Status DC Amiodarone HCl 450 mg/Dextrose 259 ml @ 33 mls/hr 1X ONCE IV Last administered on 04/10/19at 12:55; Start 04/10/19 at 12:45; Stop 04/10/19 at 20:35; Status DC Sodium Chloride 1,000 ml @ 1,000 mls/hr Q1H IV Last administered on 04/10/19at 12:20; Start 04/10/19 at 12:13; Stop 04/10/19 at 13:12; Status DC Midazolam HCl 50 mg/Sodium Chloride 50 ml @ 1 mls/hr 1X ONCE IV Last administered on 04/10/19at 13:35; Start 04/10/19 at 13:15; Stop 04/11/19 at 13:55; Status DC Potassium Chloride/Water 100 ml @ 50 mls/hr 1X ONCE IV ; Start 04/10/19 at 13:15; Stop 04/10/19 at 13:16; Status DC Etomidate (Amidate) 20 mg STK-MED ONCE IV ; Start 04/10/19 at 13:14; Stop 04/10/19 at 13:14; Status DC Midazolam HCl (Versed) 5 mg STK-MED ONCE .ROUTE ; Start 04/10/19 at 13:15; Stop 04/10/19 at 13:15; Status DC Succinylcholine Chloride (Anectine) 200 mg STK-MED ONCE .ROUTE ; Start 04/10/19 at 13:15; Stop 04/10/19 at 13:15; Status DC Potassium Chloride/Water 100 ml @ 100 mls/hr Q1H IV ; Start 04/10/19 at 14:00; Stop 04/10/19 at 15:59; Status DC Sodium Bicarbonate (Sodium Bicarb Adult 8.4% Syr) 50 meq 1X ONCE IV Last administered on 04/10/19at 17:17; Start 04/10/19 at 13:30; Stop 04/10/19 at 13:31; Status DC Sodium Chloride 1,000 ml @ 150 mls/hr Q6H40M IV ; Start 04/10/19 at 13:28; Stop 04/11/19 at 00:46; Status DC Piperacillin Sod/ Tazobactam Sod 3.375 gm/Sodium Chloride 50 ml @ 100 mls/hr 1X ONCE IV Last administered on 04/10/19at 18:35; Start 04/10/19 at 13:45; Stop 04/10/19 at 14:14; Status DC Vancomycin HCl 250 ml @ 250 mls/hr 1X ONCE IV ; Start 04/10/19 at 13:45; Stop 04/10/19 at 14:44; Status UNV Sodium Chloride 1,000 ml @ 1,000 mls/hr 1X ONCE IV Last administered on 04/10/19at 13:45; Start 04/10/19 at 13:45; Stop 04/10/19 at 14:44; Status DC Vancomycin HCl 1.75 gm/Sodium Chloride 500 ml @ 250 mls/hr 1X ONCE IV ; Start 04/10/19 at 14:00; Stop 04/10/19 at 15:59; Status DC Iodixanol (Visipaque 320) 100 ml STK-MED ONCE .ROUTE ; Start 04/10/19 at 14:01; Stop 04/10/19 at 14:02; Status DC Heparin Sodium/ Sodium Chloride 500 ml @ As Directed STK-MED ONCE .ROUTE ; Start 04/10/19 at 14:02; Stop 04/10/19 at 14:02; Status DC Lidocaine HCl (Xylocaine-Mpf 1% 2ml Vial) 2 ml STK-MED ONCE .ROUTE ; Start 04/10/19 at 14:02; Stop 04/10/19 at 14:02; Status DC Lidocaine HCl (Lidocaine 1% 20ml Vial) 20 ml STK-MED ONCE .ROUTE ; Start 04/10/19 at 14:03; Stop 04/10/19 at 14:04; Status DC Heparin Sodium (Porcine) (Heparin Sodium) 10,000 unit STK-MED ONCE .ROUTE ; Start 04/10/19 at 15:16; Stop 04/10/19 at 15:16; Status DC Heparin Sodium/ Sodium Chloride (HEPARIN for ARTERIAL LINE FLUSH) 1,000 unit 1X ONCE IART Last administered on 04/10/19at 15:42; Start 04/10/19 at 15:30; Stop 04/10/19 at 23:39; Status DC Iodixanol (Visipaque 320) 104 ml 1X ONCE IART Last administered on 04/10/19at 15:42; Start 04/10/19 at 15:30; Stop 04/10/19 at 23:39; Status DC Heparin Sodium (Porcine) (Heparin Sodium) 4,000 unit 1X ONCE IV Last administered on 04/10/19at 15:42; Start 04/10/19 at 15:30; Stop 04/10/19 at 23:39; Status DC Lidocaine HCl (Lidocaine 1% 20ml Vial) 20 ml 1X ONCE INJ Last administered on 04/10/19at 15:42; Start 04/10/19 at 15:30; Stop 04/10/19 at 23:39; Status DC Atropine Sulfate (ATROPINE 1mg SYRINGE) 1 mg 1X ONCE IV Last administered on 04/10/19at 12:42; Start 04/10/19 at 12:42; Stop 04/10/19 at 15:42; Status DC Midazolam HCl (Versed) 5 mg 1X ONCE IV Last administered on 04/10/19at 13:15; Start 04/10/19 at 13:15; Stop 04/10/19 at 15:42; Status DC Vecuronium [place] (Norcuron Bolus) 10 mg STK-MED ONCE IV ; Start 04/10/19 at 16:54; Stop 04/10/19 at 16:55; Status DC Fentanyl Citrate (Fentanyl 2ml Vial) 100 mcg STK-MED ONCE .ROUTE ; Start 04/10/19 at 16:55; Stop 04/10/19 at 16:56; Status DC Fentanyl Citrate (Fentanyl 2ml Vial) 100 mcg 1X ONCE IV Last administered on 04/10/19at 17:16; Start 04/10/19 at 17:00; Stop 04/10/19 at 17:01; Status DC Midazolam HCl (Versed) 2 mg 1X ONCE IV ; Start 04/10/19 at 17:00; Stop 04/10/19 at 17:01; Status DC Magnesium Sulfate/ Dextrose 100 ml @ 100 mls/hr 1X ONCE IV Last administered on 04/10/19at 17:16; Start 04/10/19 at 18:00; Stop 04/10/19 at 18:59; Status DC Buspirone HCl (Buspar) 30 mg Q8HRS NG Last administered on 04/11/19at 21:13; Start 04/10/19 at 17:00; Stop 04/12/19 at 05:17; Status DC Acetaminophen (Tylenol) 650 mg Q4H NG Last administered on 04/12/19at 00:27; Start 04/10/19 at 17:00; Stop 04/12/19 at 03:15; Status DC Artificial Tears (Artificial Tears) 1 drop Q6HRS OU Last administered on 04/12/19at 00:27; Start 04/10/19 at 18:00; Stop 04/12/19 at 05:17; Status DC Artificial Tears (Artificial Tears) 1 drop PRN Q15MIN PRN OU DRY EYE; Start 04/10/19 at 17:00 Heparin Sodium (Porcine) (Heparin Sodium) 5,000 unit BID SQ ; Start 04/10/19 at 21:00; Status Cancel Pantoprazole Sodium (PROTONIX VIAL for IV PUSH) 40 mg DAILY IVP Last administered on 04/17/19at 08:27; Start 04/10/19 at 18:00 Fentanyl Citrate 30 ml @ 0 mls/hr CONT PRN IV PER PROTOCOL. Last administered on 04/10/19at 17:30; Start 04/10/19 at 17:00; Stop 04/14/19 at 13:51; Status DC Propofol 100 ml @ 0 mls/hr CONT PRN IV PER PROTOCOL. Last administered on 04/14/19at 04:56; Start 04/10/19 at 17:00; Stop 04/14/19 at 13:51; Status DC Midazolam HCl 50 mg/Sodium Chloride 50 ml @ 0 mls/hr CONT PRN IV PER PROTOCOL. Last administered on 04/12/19at 00:27; Start 04/10/19 at 17:00; Stop 04/14/19 at 13:51; Status DC Vecuronium [place] (Norcuron Bolus) 7 mg PRN Q1HR PRN IV SHIVERING Last administered on 04/11/19at 15:48; Start 04/10/19 at 17:00; Stop 04/14/19 at 13:51; Status DC Heparin Sodium/ Dextrose 250 ml @ 0 mls/hr CONT PRN IV PER PROTOCOL; Start 04/10/19 at 17:30; Stop 04/10/19 at 23:42; Status DC Heparin Sodium (Porcine) (Heparin Sodium) 2,150 unit PRN Q6HRS PRN IV FOR UFH LEVEL LESS THAN 0.2; Start 04/10/19 at 17:30; Stop 04/10/19 at 23:39; Status DC Heparin Sodium (Porcine) (Heparin Sodium) 1,050 unit PRN Q6HRS PRN IV FOR UFH LEVEL 0.2 - 0.29; Start 04/10/19 at 17:30; Stop 04/10/19 at 23:39; Status DC Hydralazine HCl (Apresoline Inj) 10 mg PRN Q6HRS PRN IVP ELEVATED BP, SEE COMMENTS; Start 04/10/19 at 18:00; Stop 04/14/19 at 13:00; Status DC Hydralazine HCl (Apresoline Inj) 20 mg STK-MED ONCE .ROUTE ; Start 04/10/19 at 17:56; Stop 04/10/19 at 17:56; Status DC Iohexol (Omnipaque 350 Mg/ml) 75 ml 1X ONCE IV Last administered on 04/10/19at 18:45; Start 04/10/19 at 18:45; Stop 04/10/19 at 18:46; Status DC Insulin Human Regular 100 unit/ Sodium Chloride 101 ml @ 0 mls/hr CONT PRN IV SEE I/O RECORD Last administered on 04/11/19at 10:23; Start 04/10/19 at 19:30; Stop 04/12/19 at 03:15; Status DC Magnesium Sulfate/ Dextrose 100 ml @ 100 mls/hr PRN DAILY PRN IV MAG level 2.4-3.0mg/dl Last administered on 04/11/19at 08:44; Start 04/10/19 at 20:30 Potassium Chloride/Water 100 ml @ 100 mls/hr PRN DAILY PRN IV K+ level 3.1- 3.4mEq/L Last administered on 04/11/19at 06:50; Start 04/10/19 at 20:30 Magnesium Sulfate/ Dextrose 100 ml @ 100 mls/hr 1X PRN IV MAG level 2.4- 3.0mg/dl Last administered on 04/10/19at 22:17; Start 04/10/19 at 22:00; Stop 04/11/19 at 01:56; Status DC Potassium Chloride/Water 100 ml @ 100 mls/hr 1X PRN IV K+ level 3.1-3.4mEq/L Last administered on 04/10/19at 22:16; Start 04/10/19 at 22:00; Stop 04/11/19 at 01:55; Status DC Norepinephrine Bitartrate 8 mg/ Dextrose 258 ml @ 13.855 mls/ hr CONT PRN IV P ER PROTOCOL Last administered on 04/13/19at 13:22; Start 04/10/19 at 22:45; Stop 04/14/19 at 13:51; Status DC Heparin Sodium/ Dextrose 250 ml @ 0 mls/hr CONT PRN IV PER PROTOCOL Last administered on 04/11/19at 00:43; Start 04/10/19 at 23:45; Stop 04/11/19 at 09:36; Status DC Heparin Sodium (Porcine) (Heparin Sodium) 1,800 unit PRN Q6HRS PRN IV FOR UFH LEVEL LESS THAN 0.2; Start 04/10/19 at 23:45; Stop 04/11/19 at 09:54; Status DC Amiodarone HCl 450 mg/Dextrose 259 ml @ 0 mls/hr CONT PRN IV SEE I/O RECORD Last administered on 04/12/19at 11:52; Start 04/11/19 at 00:00; Stop 04/11/19 at 19:36; Status DC Dextrose/Sodium Chloride 1,000 ml @ 75 mls/hr [id number] IV Last administered on 04/11/19at 01:57; Start 04/11/19 at 01:00; Stop 04/11/19 at 10:53; Status DC Potassium Chloride/Water 100 ml @ 50 mls/hr PRN DAILY PRN IV K+ level less than 3.1 mEq/l; Start 04/11/19 at 02:00; Status Cancel Potassium Chloride/Water 100 ml @ 100 mls/hr PRN Q1HR PRN IV K<3.1; Start 04/11/19 at 02:00 Magnesium Sulfate/ Dextrose 100 ml @ 100 mls/hr PRN DAILY PRN IV MAG level 2.4-3.0mg/dl; Start 04/11/19 at 06:45; Status UNV Potassium Chloride/Water 100 ml @ 100 mls/hr PRN DAILY PRN IV K+ level 3.1- 3.4mEq/L; Start 04/11/19 at 06:45; Status UNV Atropine Sulfate (ATROPINE 0.5mg SYRINGE) 0.25 mg 1X ONCE IM ; Start 04/11/19 at 09:45; Stop 04/11/19 at 09:38; Status DC Atropine Sulfate (ATROPINE 1mg SYRINGE) 0.25 mg 1X ONCE IM Last administered on 04/11/19at 09:55; Start 04/11/19 at 09:45; Stop 04/11/19 at 09:46; Status DC Dopamine HCl/ Dextrose 250 ml @ 6.676 mls/ hr CONT PRN IV SEE I/O RECORD Last administered on 04/12/19at 20:21; Start 04/11/19 at 10:00; Stop 04/14/19 at 13:51; Status DC Sodium Chloride 1,000 ml @ 75 mls/hr [id number] IV Last administered on 04/11/19at 19:36; Start 04/11/19 at 12:00; Stop 04/13/19 at 15:18; Status DC Heparin Sodium (Porcine) (Heparin Sodium) 5,000 unit BID SQ Last administered on 04/14/19at 21:19; Start 04/11/19 at 21:00; Stop 04/15/19 at 12:18; Status DC Atropine Sulfate (ATROPINE 1mg SYRINGE) 1 mg STK-MED ONCE .ROUTE ; Start 04/10/19 at 15:16; Stop 04/11/19 at 15:16; Status DC Amiodarone HCl 450 mg/Dextrose 259 ml @ 33 mls/hr CONT PRN PRN IV SEE I/O RECORD Last administered on 04/13/19at 04:37; Start 04/12/19 at 08:15; Stop 04/14/19 at 13:51; Status DC Acetaminophen (Tylenol) 650 mg PRN Q6HRS PRN PEG MILD PAIN / TEMP Last administered on 04/13/19at 00:02; Start 04/12/19 at 11:30 Dexmedetomidine HCl 400 mcg/ Sodium Chloride 100 ml @ 0 mls/hr CONT PRN IV ANXIETY / AGITATION Last administered on 04/15/19at 05:23; Start 04/13/19 at 08:00; Stop 04/16/19 at 11:22; Status DC Piperacillin Sod/ Tazobactam Sod 4.5 gm/Sodium Chloride 100 ml @ 200 mls/hr Q6HRS IV Last administered on 04/17/19at 12:14; Start 04/13/19 at 09:00 Sodium Chloride 1,000 ml @ 75 mls/hr [id number] IV ; Start 04/13/19 at 15:30; Status Cancel Sodium Chloride 1,000 ml @ 75 mls/hr [id number] IV Last administered on 04/14/19at 05:05; Start 04/13/19 at 15:45; Stop 04/14/19 at 18:32; Status DC Haloperidol Lactate (Haldol Inj) 2 mg PRN Q6HRS PRN IVP AGITATION 3RD CHOICE Last administered on 04/16/19at 05:48; Start 04/14/19 at 10:30 Furosemide (Lasix) 40 mg 1X ONCE IVP Last administered on 04/14/19at 13:19; Start 04/14/19 at 13:00; Stop 04/14/19 at 13:01; Status DC Hydralazine HCl (Apresoline Inj) 10 mg PRN Q4HRS PRN IVP ELEVATED BP, SEE COMMENTS Last administered on 04/17/19at 08:27; Start 04/14/19 at 13:00 Atropine Sulfate (ATROPINE 1mg SYRINGE) 1 mg STK-MED ONCE .ROUTE ; Start 04/10/19 at 10:00; Stop 04/14/19 at 13:34; Status DC Calcium Chloride 1,000 mg STK-MED ONCE IV ; Start 04/10/19 at 10:00; Stop 04/14/19 at 13:34; Status DC Metoprolol Tartrate (Lopressor Vial) 5 mg Q6HRS IVP Last administered on 04/17/19at 12:13; Start 04/14/19 at 14:30 Magnesium Sulfate 50 ml @ 25 mls/hr 1X ONCE IV Last administered on 04/14/19at 15:39; Start 04/14/19 at 15:00; Stop 04/14/19 at 16:59; Status DC Potassium Chloride/Water 100 ml @ 100 mls/hr Q1H IV Last administered on 04/14/19at 16:46; Start 04/14/19 at 15:00; Stop 04/14/19 at 16:59; Status DC Amiodarone HCl 450 mg/Dextrose 259 ml @ 17 mls/hr CONT PRN IV SEE I/O RECORD Last administered on 04/15/19at 05:22; Start 04/14/19 at 15:15; Stop 04/15/19 at 05:23; Status DC Lorazepam (Ativan Inj) 0.5 mg PRN Q4HRS PRN IVP ANXIETY / AGITATION; Start 04/15/19 at 08:15 Lorazepam (Ativan Inj) 1 mg PRN Q4HRS PRN IVP ANXIETY / AGITATION Last administered on 04/15/19at 23:51; Start 04/15/19 at 08:30 Potassium Chloride/Water 100 ml @ 100 mls/hr Q1H IV Last administered on 04/15/19at 13:05; Start 04/15/19 at 09:00; Stop 04/15/19 at 10:59; Status DC Lidocaine/ Epinephrine (LIDOCAINE 2%-EPI 1:100,000 multi-dose) 20 ml 1X ONCE IJ Last administered on 04/15/19at 11:09; Start 04/15/19 at 09:00; Stop 04/15/19 at 09:06; Status DC Bacitracin 36492 unit/Sodium Chloride 250 ml @ 0 mls/hr 1X ONCE IRR Last administered on 04/15/19at 11:45; Start 04/15/19 at 09:00; Stop 04/15/19 at 09:06; Status DC Cefazolin Sodium (Ancef) 1 gm 1X ONCE IVP Last administered on 04/15/19at 11:07; Start 04/15/19 at 09:00; Stop 04/15/19 at 09:06; Status DC Midazolam HCl (Versed) 2 mg STK-MED ONCE .ROUTE ; Start 04/15/19 at 09:38; Stop 04/15/19 at 09:38; Status DC Propofol 50 ml @ As Directed STK-MED ONCE IV ; Start 04/15/19 at 09:40; Stop 04/15/19 at 09:40; Status DC Furosemide (Lasix) 40 mg 1X ONCE IVP ; Start 04/15/19 at 10:15; Stop 04/15/19 at 10:16; Status DC Furosemide (Lasix) 40 mg STK-MED ONCE .ROUTE ; Start 04/15/19 at 10:03; Stop 04/15/19 at 10:03; Status DC Lidocaine/ Epinephrine (LIDOCAINE 2%-EPI 1:100,000 multi-dose) 20 ml STK-MED ONCE .ROUTE ; Start 04/15/19 at 10:08; Stop 04/15/19 at 10:09; Status DC Iohexol (Omnipaque 300 Mg/ml) 100 ml STK-MED ONCE .ROUTE ; Start 04/15/19 at 11:16; Stop 04/15/19 at 11:16; Status DC Iohexol (Omnipaque 300 Mg/ml) 10 ml 1X ONCE IART Last administered on 04/15/19at 11:17; Start 04/15/19 at 12:00; Stop 04/15/19 at 12:05; Status DC Info (CONTRAST GIVEN -- Rx MONITORING) 1 each PRN DAILY PRN MC SEE COMMENTS; Start 04/15/19 at 12:15; Stop 04/17/19 at 12:14; Status DC Info (No Anticoagulant Therapy) 1 ea CONT PRN PRN MC PER PROTOCOL; Start 04/15/19 at 12:15 Cefazolin Sodium (Ancef) 1 gm 1X ONCE IVP ; Start 04/15/19 at 12:30; Stop 04/15/19 at 12:31; Status UNV Acetaminophen (Tylenol) 650 mg PRN Q6HRS PRN PO MILD PAIN 1-3; Start 04/15/19 at 12:15 Labetalol HCl (Normodyne Iv Push) 20 mg PRN Q2HR PRN IVP HYPERTENSION Last administered on 04/17/19at 10:20; Start 04/15/19 at 16:00 Nitroglycerin (Nitro-Bid Oint) 1 inch Q6HRS TP Last administered on 04/15/19at 17:05; Start 04/15/19 at 18:00; Stop 04/15/19 at 20:46; Status DC Nitroglycerin/ Dextrose 250 ml @ 1.5 mls/hr CONT PRN IV SEE I/O RECORD Last administered on 04/16/19at 13:12; Start 04/15/19 at 20:45; Stop 04/16/19 at 18:25; Status DC Potassium Chloride (Klor-Con) 40 meq Q2H PO ; Start 04/16/19 at 08:00; Stop 04/16/19 at 07:52; Status DC Potassium Chloride/Water 100 ml @ 100 mls/hr Q1H IV Last administered on at 09:18; Start 04/16/19 at 08:00; Stop 04/16/19 at 09:59; Status DC Nitroglycerin (Nitro-Bid Oint) 1 inch Q6HRS TP Last administered on 04/17/19at 12:13; Start 04/16/19 at 12:00 Nitroglycerin (Nitro-Bid Oint) 1 inch 1X ONCE TP Last administered on 04/16/19at 09:48; Start 04/16/19 at 09:45; Stop 04/16/19 at 09:46; Status DC Amiodarone HCl 150 mg/Dextrose 103 ml @ 618 mls/hr 1X ONCE IV Last administered on 04/16/19at 09:48; Start 04/16/19 at 10:00; Stop 04/16/19 at 10:09; Status DC Amiodarone HCl 450 mg/Dextrose 259 ml @ 0 mls/hr CONT PRN IV SEE I/O RECORD Last administered on 04/16/19at 23:01; Start 04/16/19 at 09:30; Stop 04/16/19 at 23:14; Status DC Potassium Chloride/Water 100 ml @ 100 mls/hr Q1H IV Last administered on 04/16/19at 13:14; Start 04/16/19 at 10:00; Stop 04/16/19 at 11:59; Status DC Aspirin (Aspirin Rectal Supp) 150 mg 1X ONCE GA Last administered on 04/16/19at 13:14; Start 04/16/19 at 10:30; Stop 04/16/19 at 10:31; Status DC Amino Acids/ Electrolytes/ Dextrose 1,000 ml @ 80 mls/hr [id number] IV Last administered on 04/17/19at 06:19; Start 04/16/19 at 16:00 Furosemide (Lasix) 40 mg 1X ONCE IVP Last administered on 04/16/19at 17:42; Start 04/16/19 at 18:00; Stop 04/16/19 at 18:01; Status DC Potassium Chloride/Water 100 ml @ 100 mls/hr 1X ONCE IV Last administered on 04/17/19at 09:06; Start 04/17/19 at 09:00; Stop 04/17/19 at 09:59; Status DC Nicardipine HCl 50 mg/Sodium Chloride 250 ml @ 100 mls/hr CONT PRN IV SEE I/O RECORD; Start 04/17/19 at 08:45; Stop 04/17/19 at 11:45; Status DC Potassium Chloride/Water 100 ml @ 100 mls/hr Q1H IV Last administered on 04/17/19at 10:58; Start 04/17/19 at 09:00; Stop 04/17/19 at 10:59; Status DC Metoprolol Tartrate (Lopressor) 50 mg BID PO Last administered on 04/17/19at 12:12; Start 04/17/19 at 11:45 Amlodipine Besylate (Norvasc) 10 mg DAILY PO Last administered on 04/17/19at 12:12; Start 04/17/19 at 11:45 Amiodarone HCl (Cordarone) 400 mg DAILY PO ; Start 04/18/19 at 09:00 Potassium Bicarbonate (Potassium Effervescent Tablet) 20 meq 1X ONCE PO Last administered on 04/17/19at 12:44; Start 04/17/19 at 11:45; Stop 04/17/19 at 11:48; Status DC Hydrochlorothiazide (Microzide) 12.5 mg DAILY PO Last administered on 04/17/19at 12:12; Start 04/17/19 at 11:45 Active Scripts Active Reported Celebrex (Celecoxib) 100 Mg Capsule 1 Cap PO BID Verapamil Er (Verapamil Hcl) 240 Mg Cap24h.pel 1 Cap PO DAILY Vitals/I & O Vital Sign - Last 24 Hours 04/16/19 04/16/19 04/16/19 04/16/19 14:53 15:08 16:54 17:52 Temp 97.9 97.9 Pulse 71 81 67 115 Resp 18 B/P (MAP) 175/85 175/85 (115) 183/86 161/83 Pulse Ox 94 O2 Delivery Nasal Cannula O2 Flow Rate 3.0 04/16/19 04/16/19 04/16/19 04/16/19 19:33 20:00 22:35 23:05 Temp 98.1 98.3 98.1 98.3 Pulse 119 76 76 Resp 20 18 B/P (MAP) 155/84 (107) 154/69 (97) 154/69 Pulse Ox 97 95 O2 Delivery Nasal Cannula Nasal Cannula Nasal Cannula O2 Flow Rate 3.0 3.0 3.0 04/16/19 04/16/19 04/17/19 04/17/19 23:07 23:33 00:33 01:33 Pulse 76 74 71 72 B/P (MAP) 154/69 160/74 (102) 172/82 (112) 168/79 (108) 04/17/19 04/17/19 04/17/19 04/17/19 02:14 02:33 03:33 04:33 Temp 97.5 97.5 Pulse 72 70 67 75 Resp 20 B/P (MAP) 168/79 155/79 (104) 166/80 (108) 180/87 (118) Pulse Ox 98 O2 Delivery Nasal Cannula O2 Flow Rate 3.0 04/17/19 04/17/19 04/17/19 04/17/19 04:44 05:33 06:18 06:25 Pulse 63 62 68 72 B/P (MAP) 150/73 (98) 183/91 (121) 183/91 183/91 04/17/19 04/17/19 04/17/19 04/17/19 07:00 08:00 08:27 09:35 Temp 97.5 97.5 Pulse 74 74 75 Resp 20 B/P (MAP) 185/88 (120) 185/88 176/107 (130) Pulse Ox 94 O2 Delivery Nasal Cannula Nasal Cannula O2 Flow Rate 3.0 3.0 04/17/19 04/17/19 04/17/19 04/17/19 10:20 11:00 11:35 12:12 Temp 97.7 97.7 Pulse 75 70 70 70 Resp 20 B/P (MAP) 176/107 151/83 (105) 181/91 (121) 181/91 Pulse Ox 97 O2 Delivery Nasal Cannula O2 Flow Rate 3.0 04/17/19 04/17/19 04/17/19 04/17/19 12:12 12:13 12:13 12:36 Pulse 70 70 70 66 B/P (MAP) 181/91 181/91 181/91 168/86 (113) Intake and Output 04/16/19 04/16/19 04/17/19 15:00 23:00 07:00 Intake Total 303 ml 60 ml 0 ml Output Total 320 ml 2650 ml 750 ml Balance -17 ml -2590 ml -750 ml BHARGAVI WILKS MD Apr 17, 2019 13:56
[2019-04-17] MEDS ORDERED: LISI30TA4 PO (14:28)
[2019-04-17] MEDS ORDERED: ATOR10TA60 PO (14:28)
[2019-04-17] MEDS: LISINOPRIL 20 MG TABLET PO SCH (15:59)
[2019-04-17] MEDS: ATORVASTATIN CALCIUM 10 MG TABLET. PO SCH (21:08)
[2019-04-18] MEDS: ACETAMINOPHEN 325 MG TABLET. PO PRN ×2 (01:22→20:48)
[2019-04-18 03:12] VITALS: BP 177/98
[2019-04-18] MEDS: hydrALAZINE 20 MG/ML VIAL. IVP PRN ×2 (04:13→22:51)
[2019-04-18] MEDS: PIPERACILLIN/TAZOBACTAM 4.5 GM in IV NORMAL SALINE 100ML 100 ML IV SCH ×4 (06:20→23:30)
[2019-04-18] MEDS: NITROGLYCERIN OINT 1 GM PACKET. TP SCH (06:22)
[2019-04-18] MEDS: METOPROLOL TART IMMED RELEASE 50 MG TABLET. PO SCH ×3 (06:23→20:49)
[2019-04-18] MEDS: LABETALOL 20 MG/4 ML DISP.SYRIN. IVP PRN (06:44)
[2019-04-18 07:05] LABS: ALBUMIN/GLOBULIN RATIO 0.6 (1.0-1.7); CALCIUM 8.2 mg/dL (8.5-10.1); CREATININE 0.6 mg/dL (0.6-1.0); POTASSIUM 3.8 mmol/L (3.5-5.1); TOTAL BILIRUBIN 0.4 mg/dL (0.2-1.0); TOTAL PROTEIN 5.5 g/dL (6.4-8.2)
[2019-04-18 07:38] LABS: BASO % 0 % (0-3); EOS # 0.2 x10^3/uL (0.0-0.7); EOS % 2 % (0-3); HEMATOCRIT 28.2 % (36.0-47.0); HEMOGLOBIN 9.2 g/dL (12.0-15.5); LYMPH % 16 % (24-48); MEAN CORPUSCULAR HEMOGLOBIN 29 pg (25-35); MEAN CORPUSCULAR HGB CONC 33 g/dL (31-37); MEAN CORPUSCULAR VOLUME 88 fL (79-100); MONO # 1.3 x10^3/uL (0.0-1.1); MONO % 10 % (0-9); NEUT # 9.3 x10^3/uL (1.8-7.7); NEUT % 72 % (31-73); PLATELET COUNT 326 x10^3/uL (140-400); RED BLOOD COUNT 3.21 x10^6/uL (3.50-5.40); RED CELL DISTRIBUTION WIDTH 13.9 % (11.5-14.5); WHITE BLOOD COUNT 12.9 x10^3/uL (4.0-11.0)
[2019-04-18] MEDS: AA 4.25 %/CALCIUM/LYTES/D5W 1,000 ML IV SCH (07:58)
[2019-04-18 08:00] VITALS: BP 154/75
[2019-04-18] MEDS ORDERED: ASPIRIN ENTERIC COATED 81 MG TABLET.DR. PO SCH (08:00)
[2019-04-18] MEDS: PANTOPRAZOLE IV PUSH 40 MG VIAL. IVP SCH (09:01)
[2019-04-18] MEDS: amLODIPine BESYLATE 10 MG TABLET PO SCH (09:01)
[2019-04-18] MEDS: LISINOPRIL 20 MG TABLET PO SCH (09:01)
[2019-04-18] MEDS: CHLORTHALIDONE 25 MG TABLET. PO SCH (09:02)
[2019-04-18] MEDS: AMIODARONE HCL 200 MG TABLET. PO SCH (09:02)
--- NOTE | 2019-04-18 09:05 | PDOC ---
PROGRESS NOTES Assessment Problems Medical Problems: (1) Acute respiratory acidosis Status: Acute (2) Cardiorespiratory arrest Status: Acute (3) Elevated d-dimer Status: Acute (4) Elevated troponin Status: Acute (5) Hyperglycemia Status: Acute (6) Hypokalemia Status: Acute (7) NSTEMI (non-ST elevated myocardial infarction) Status: Acute (8) Pneumonia Status: Acute (9) Sepsis Status: Acute (10) Severe sepsis Status: Acute Cardiopulmonary arrest, down time estimated 8 minutes per her friend. CT head negative, EEG borderline study, mild slowing of background, no epileptic activity Anoxic encephalopathy, much better. Ventricular tachycardia Cardiac shock. Respiratory failure. Pulmonary edema. Pulmonary interstitial infiltrate. Lactic acidosis. Hypokalemia, K+ 2.9 Hyperglycemia, glucose 300. DM. HTN. HLD. 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 Oriented to time, place and person PERRL. EOMI. CN: no focal findings. Muscle tone: normal. Muscle strength: 4/5, splint on left arm (pacemaker) DTR: 2+ Plantar reflex: flexor Gait: not examined in bed. Sensory exam: no abnormal findings. No cerebellar signs elicited. Review of Relevant I have reviewed the following items fracisco (where applicable) has been applied. Labs Laboratory Tests Test 04/16/19 16:20 04/17/19 07:55 04/18/19 06:30 Sodium Level 147 mmol/L (136-145) 144 mmol/L (136-145) 142 mmol/L (136-145) Potassium Level 3.2 mmol/L (3.5-5.1) 3.1 mmol/L (3.5-5.1) 3.8 mmol/L (3.5-5.1) Chloride Level 113 mmol/L (98-107) 108 mmol/L (98-107) 107 mmol/L (98-107) Carbon Dioxide Level 26 mmol/L (21-32) 28 mmol/L (21-32) 27 mmol/L (21-32) Anion Gap 8 (6-14) 8 (6-14) 8 (6-14) Blood Urea Nitrogen 18 mg/dL (7-20) 21 mg/dL (7-20) 19 mg/dL (7-20) Creatinine 0.6 mg/dL (0.6-1.0) 0.6 mg/dL (0.6-1.0) 0.6 mg/dL (0.6-1.0) Estimated GFR (Cockcroft-Gault) 102.0 102.0 102.0 Glucose Level 134 mg/dL (70-99) 147 mg/dL (70-99) 121 mg/dL (70-99) Calcium Level 7.4 mg/dL (8.5-10.1) 8.6 mg/dL (8.5-10.1) 8.2 mg/dL (8.5-10.1) White Blood Count 10.9 x10^3/uL (4.0-11.0) 12.9 x10^3/uL (4.0-11.0) Red Blood Count 2.94 x10^6/uL (3.50-5.40) 3.21 x10^6/uL (3.50-5.40) Hemoglobin 8.6 g/dL (12.0-15.5) 9.2 g/dL (12.0-15.5) Hematocrit 25.3 % (36.0-47.0) 28.2 % (36.0-47.0) Mean Corpuscular Volume 86 fL (79-100) 88 fL (79-100) Mean Corpuscular Hemoglobin 29 pg (25-35) 29 pg (25-35) Mean Corpuscular Hemoglobin Concent 34 g/dL (31-37) 33 g/dL (31-37) Red Cell Distribution Width 13.5 % (11.5-14.5) 13.9 % (11.5-14.5) Platelet Count 243 x10^3/uL (140-400) 326 x10^3/uL (140-400) Neutrophils (%) (Auto) 70 % (31-73) 72 % (31-73) Lymphocytes (%) (Auto) 14 % (24-48) 16 % (24-48) Monocytes (%) (Auto) 15 % (0-9) 10 % (0-9) Eosinophils (%) (Auto) 1 % (0-3) 2 % (0-3) Basophils (%) (Auto) 0 % (0-3) 0 % (0-3) Neutrophils # (Auto) 7.7 x10^3/uL (1.8-7.7) 9.3 x10^3/uL (1.8-7.7) Lymphocytes # (Auto) 1.5 x10^3/uL (1.0-4.8) 2.0 x10^3/uL (1.0-4.8) Monocytes # (Auto) 1.7 x10^3/uL (0.0-1.1) 1.3 x10^3/uL (0.0-1.1) Eosinophils # (Auto) 0.1 x10^3/uL (0.0-0.7) 0.2 x10^3/uL (0.0-0.7) Basophils # (Auto) 0.0 x10^3/uL (0.0-0.2) 0.0 x10^3/uL (0.0-0.2) BUN/Creatinine Ratio 35 (6-20) 32 (6-20) Total Bilirubin 0.6 mg/dL (0.2-1.0) 0.4 mg/dL (0.2-1.0) Aspartate Amino Transf (AST/SGOT) 70 U/L (15-37) 68 U/L (15-37) Alanine Aminotransferase (ALT/SGPT) 83 U/L (14-59) 104 U/L (14-59) Alkaline Phosphatase 58 U/L (46-116) 58 U/L (46-116) Total Protein 5.2 g/dL (6.4-8.2) 5.5 g/dL (6.4-8.2) Albumin 1.9 g/dL (3.4-5.0) 2.0 g/dL (3.4-5.0) Albumin/Globulin Ratio 0.6 (1.0-1.7) 0.6 (1.0-1.7) Laboratory Tests Test 04/18/19 06:30 White Blood Count 12.9 x10^3/uL (4.0-11.0) Red Blood Count 3.21 x10^6/uL (3.50-5.40) Hemoglobin 9.2 g/dL (12.0-15.5) Hematocrit 28.2 % (36.0-47.0) Mean Corpuscular Volume 88 fL (79-100) Mean Corpuscular Hemoglobin 29 pg (25-35) Mean Corpuscular Hemoglobin Concent 33 g/dL (31-37) Red Cell Distribution Width 13.9 % (11.5-14.5) Platelet Count 326 x10^3/uL (140-400) Neutrophils (%) (Auto) 72 % (31-73) Lymphocytes (%) (Auto) 16 % (24-48) Monocytes (%) (Auto) 10 % (0-9) Eosinophils (%) (Auto) 2 % (0-3) Basophils (%) (Auto) 0 % (0-3) Neutrophils # (Auto) 9.3 x10^3/uL (1.8-7.7) Lymphocytes # (Auto) 2.0 x10^3/uL (1.0-4.8) Monocytes # (Auto) 1.3 x10^3/uL (0.0-1.1) Eosinophils # (Auto) 0.2 x10^3/uL (0.0-0.7) Basophils # (Auto) 0.0 x10^3/uL (0.0-0.2) Sodium Level 142 mmol/L (136-145) Potassium Level 3.8 mmol/L (3.5-5.1) Chloride Level 107 mmol/L (98-107) Carbon Dioxide Level 27 mmol/L (21-32) Anion Gap 8 (6-14) Blood Urea Nitrogen 19 mg/dL (7-20) Creatinine 0.6 mg/dL (0.6-1.0) Estimated GFR (Cockcroft-Gault) 102.0 BUN/Creatinine Ratio 32 (6-20) Glucose Level 121 mg/dL (70-99) Calcium Level 8.2 mg/dL (8.5-10.1) Total Bilirubin 0.4 mg/dL (0.2-1.0) Aspartate Amino Transf (AST/SGOT) 68 U/L (15-37) Alanine Aminotransferase (ALT/SGPT) 104 U/L (14-59) Alkaline Phosphatase 58 U/L (46-116) Total Protein 5.5 g/dL (6.4-8.2) Albumin 2.0 g/dL (3.4-5.0) Albumin/Globulin Ratio 0.6 (1.0-1.7) Microbiology 04/13/19 - Final, Resulted 04/13/19 - Final, Resulted 04/13/19 - Final, Resulted 04/13/19 - Preliminary, Resulted 04/13/19 - Preliminary, Resulted 04/13/19 - Preliminary, Resulted 04/13/19 Gram Stain Evaluation - Final, Resulted 04/13/19 Sputum Culture - Final, Resulted 04/13/19 Sputum Result 1 - Final, Resulted 04/10/19 Blood Culture - Final, Complete NO GROWTH AFTER 5 DAYS Medications Current Medications Norepinephrine Bitartrate 8 mg/ Dextrose 258 ml @ 13.855 mls/ hr 1X ONCE IV Last administered on 04/10/19at 12:40; Start 04/10/19 at 12:30; Stop 04/10/19 at 12:31; Status DC Amiodarone HCl 450 mg/Dextrose 259 ml @ 33 mls/hr 1X ONCE IV Last administered on 04/10/19at 12:55; Start 04/10/19 at 12:45; Stop 04/10/19 at 20:35; Status DC Sodium Chloride 1,000 ml @ 1,000 mls/hr Q1H IV Last administered on 04/10/19at 12:20; Start 04/10/19 at 12:13; Stop 04/10/19 at 13:12; Status DC Midazolam HCl 50 mg/Sodium Chloride 50 ml @ 1 mls/hr 1X ONCE IV Last administered on 04/10/19at 13:35; Start 04/10/19 at 13:15; Stop 04/11/19 at 13:55; Status DC Potassium Chloride/Water 100 ml @ 50 mls/hr 1X ONCE IV ; Start 04/10/19 at 13:15; Stop 04/10/19 at 13:16; Status DC Etomidate (Amidate) 20 mg STK-MED ONCE IV ; Start 04/10/19 at 13:14; Stop 04/10/19 at 13:14; Status DC Midazolam HCl (Versed) 5 mg STK-MED ONCE .ROUTE ; Start 04/10/19 at 13:15; Stop 04/10/19 at 13:15; Status DC Succinylcholine Chloride (Anectine) 200 mg STK-MED ONCE .ROUTE ; Start 04/10/19 at 13:15; Stop 04/10/19 at 13:15; Status DC Potassium Chloride/Water 100 ml @ 100 mls/hr Q1H IV ; Start 04/10/19 at 14:00; Stop 04/10/19 at 15:59; Status DC Sodium Bicarbonate (Sodium Bicarb Adult 8.4% Syr) 50 meq 1X ONCE IV Last administered on 04/10/19at 17:17; Start 04/10/19 at 13:30; Stop 04/10/19 at 13:31; Status DC Sodium Chloride 1,000 ml @ 150 mls/hr Q6H40M IV ; Start 04/10/19 at 13:28; Stop 04/11/19 at 00:46; Status DC Piperacillin Sod/ Tazobactam Sod 3.375 gm/Sodium Chloride 50 ml @ 100 mls/hr 1X ONCE IV Last administered on 04/10/19at 18:35; Start 04/10/19 at 13:45; Stop 04/10/19 at 14:14; Status DC Vancomycin HCl 250 ml @ 250 mls/hr 1X ONCE IV ; Start 04/10/19 at 13:45; Stop 04/10/19 at 14:44; Status UNV Sodium Chloride 1,000 ml @ 1,000 mls/hr 1X ONCE IV Last administered on 04/10/19at 13:45; Start 04/10/19 at 13:45; Stop 04/10/19 at 14:44; Status DC Vancomycin HCl 1.75 gm/Sodium Chloride 500 ml @ 250 mls/hr 1X ONCE IV ; Start 04/10/19 at 14:00; Stop 04/10/19 at 15:59; Status DC Iodixanol (Visipaque 320) 100 ml STK-MED ONCE .ROUTE ; Start 04/10/19 at 14:01; Stop 04/10/19 at 14:02; Status DC Heparin Sodium/ Sodium Chloride 500 ml @ As Directed STK-MED ONCE .ROUTE ; Start 04/10/19 at 14:02; Stop 04/10/19 at 14:02; Status DC Lidocaine HCl (Xylocaine-Mpf 1% 2ml Vial) 2 ml STK-MED ONCE .ROUTE ; Start 04/10/19 at 14:02; Stop 04/10/19 at 14:02; Status DC Lidocaine HCl (Lidocaine 1% 20ml Vial) 20 ml STK-MED ONCE .ROUTE ; Start 04/10/19 at 14:03; Stop 04/10/19 at 14:04; Status DC Heparin Sodium (Porcine) (Heparin Sodium) 10,000 unit STK-MED ONCE .ROUTE ; Start 04/10/19 at 15:16; Stop 04/10/19 at 15:16; Status DC Heparin Sodium/ Sodium Chloride (HEPARIN for ARTERIAL LINE FLUSH) 1,000 unit 1X ONCE IART Last administered on 04/10/19at 15:42; Start 04/10/19 at 15:30; Stop 04/10/19 at 23:39; Status DC Iodixanol (Visipaque 320) 104 ml 1X ONCE IART Last administered on 04/10/19at 15:42; Start 04/10/19 at 15:30; Stop 04/10/19 at 23:39; Status DC Heparin Sodium (Porcine) (Heparin Sodium) 4,000 unit 1X ONCE IV Last administered on 04/10/19at 15:42; Start 04/10/19 at 15:30; Stop 04/10/19 at 23:39; Status DC Lidocaine HCl (Lidocaine 1% 20ml Vial) 20 ml 1X ONCE INJ Last administered on 04/10/19at 15:42; Start 04/10/19 at 15:30; Stop 04/10/19 at 23:39; Status DC Atropine Sulfate (ATROPINE 1mg SYRINGE) 1 mg 1X ONCE IV Last administered on 04/10/19at 12:42; Start 04/10/19 at 12:42; Stop 04/10/19 at 15:42; Status DC Midazolam HCl (Versed) 5 mg 1X ONCE IV Last administered on 04/10/19at 13:15; Start 04/10/19 at 13:15; Stop 04/10/19 at 15:42; Status DC Vecuronium [place] (Norcuron Bolus) 10 mg STK-MED ONCE IV ; Start 04/10/19 at 16:54; Stop 04/10/19 at 16:55; Status DC Fentanyl Citrate (Fentanyl 2ml Vial) 100 mcg STK-MED ONCE .ROUTE ; Start 04/10/19 at 16:55; Stop 04/10/19 at 16:56; Status DC Fentanyl Citrate (Fentanyl 2ml Vial) 100 mcg 1X ONCE IV Last administered on 04/10/19at 17:16; Start 04/10/19 at 17:00; Stop 04/10/19 at 17:01; Status DC Midazolam HCl (Versed) 2 mg 1X ONCE IV ; Start 04/10/19 at 17:00; Stop 04/10/19 at 17:01; Status DC Magnesium Sulfate/ Dextrose 100 ml @ 100 mls/hr 1X ONCE IV Last administered on 04/10/19at 17:16; Start 04/10/19 at 18:00; Stop 04/10/19 at 18:59; Status DC Buspirone HCl (Buspar) 30 mg Q8HRS NG Last administered on 04/11/19at 21:13; Start 04/10/19 at 17:00; Stop 04/12/19 at 05:17; Status DC Acetaminophen (Tylenol) 650 mg Q4H NG Last administered on 04/12/19at 00:27; Start 04/10/19 at 17:00; Stop 04/12/19 at 03:15; Status DC Artificial Tears (Artificial Tears) 1 drop Q6HRS OU Last administered on 04/12/19at 00:27; Start 04/10/19 at 18:00; Stop 04/12/19 at 05:17; Status DC Artificial Tears (Artificial Tears) 1 drop PRN Q15MIN PRN OU DRY EYE; Start 04/10/19 at 17:00 Heparin Sodium (Porcine) (Heparin Sodium) 5,000 unit BID SQ ; Start 04/10/19 at 21:00; Status Cancel Pantoprazole Sodium (PROTONIX VIAL for IV PUSH) 40 mg DAILY IVP Last administered on 04/18/19at 09:01; Start 04/10/19 at 18:00 Fentanyl Citrate 30 ml @ 0 mls/hr CONT PRN IV PER PROTOCOL. Last administered on 04/10/19at 17:30; Start 04/10/19 at 17:00; Stop 04/14/19 at 13:51; Status DC Propofol 100 ml @ 0 mls/hr CONT PRN IV PER PROTOCOL. Last administered on 04/14/19at 04:56; Start 04/10/19 at 17:00; Stop 04/14/19 at 13:51; Status DC Midazolam HCl 50 mg/Sodium Chloride 50 ml @ 0 mls/hr CONT PRN IV PER PROTOCOL. Last administered on 04/12/19at 00:27; Start 04/10/19 at 17:00; Stop 04/14/19 at 13:51; Status DC Vecuronium [place] (Norcuron Bolus) 7 mg PRN Q1HR PRN IV SHIVERING Last administered on 04/11/19at 15:48; Start 04/10/19 at 17:00; Stop 04/14/19 at 13:51; Status DC Heparin Sodium/ Dextrose 250 ml @ 0 mls/hr CONT PRN IV PER PROTOCOL; Start 04/10/19 at 17:30; Stop 04/10/19 at 23:42; Status DC Heparin Sodium (Porcine) (Heparin Sodium) 2,150 unit PRN Q6HRS PRN IV FOR UFH LEVEL LESS THAN 0.2; Start 04/10/19 at 17:30; Stop 04/10/19 at 23:39; Status DC Heparin Sodium (Porcine) (Heparin Sodium) 1,050 unit PRN Q6HRS PRN IV FOR UFH LEVEL 0.2 - 0.29; Start 04/10/19 at 17:30; Stop 04/10/19 at 23:39; Status DC Hydralazine HCl (Apresoline Inj) 10 mg PRN Q6HRS PRN IVP ELEVATED BP, SEE COM MENTS; Start 04/10/19 at 18:00; Stop 04/14/19 at 13:00; Status DC Hydralazine HCl (Apresoline Inj) 20 mg STK-MED ONCE .ROUTE ; Start 04/10/19 at 17:56; Stop 04/10/19 at 17:56; Status DC Iohexol (Omnipaque 350 Mg/ml) 75 ml 1X ONCE IV Last administered on 04/10/19at 18:45; Start 04/10/19 at 18:45; Stop 04/10/19 at 18:46; Status DC Insulin Human Regular 100 unit/ Sodium Chloride 101 ml @ 0 mls/hr CONT PRN IV SEE I/O RECORD Last administered on 04/11/19at 10:23; Start 04/10/19 at 19:30; Stop 04/12/19 at 03:15; Status DC Magnesium Sulfate/ Dextrose 100 ml @ 100 mls/hr PRN DAILY PRN IV MAG level 2.4-3.0mg/dl Last administered on 04/11/19at 08:44; Start 04/10/19 at 20:30 Potassium Chloride/Water 100 ml @ 100 mls/hr PRN DAILY PRN IV K+ level 3.1- 3.4mEq/L Last administered on 04/11/19at 06:50; Start 04/10/19 at 20:30 Magnesium Sulfate/ Dextrose 100 ml @ 100 mls/hr 1X PRN IV MAG level 2.4- 3.0mg/dl Last administered on 04/10/19at 22:17; Start 04/10/19 at 22:00; Stop 04/11/19 at 01:56; Status DC Potassium Chloride/Water 100 ml @ 100 mls/hr 1X PRN IV K+ level 3.1-3.4mEq/L Last administered on 04/10/19at 22:16; Start 04/10/19 at 22:00; Stop 04/11/19 at 01:55; Status DC Norepinephrine Bitartrate 8 mg/ Dextrose 258 ml @ 13.855 mls/ hr CONT PRN IV PER PROTOCOL Last administered on 04/13/19at 13:22; Start 04/10/19 at 22:45; Stop 04/14/19 at 13:51; Status DC Heparin Sodium/ Dextrose 250 ml @ 0 mls/hr CONT PRN IV PER PROTOCOL Last administered on 04/11/19at 00:43; Start 04/10/19 at 23:45; Stop 04/11/19 at 09:36; Status DC Heparin Sodium (Porcine) (Heparin Sodium) 1,800 unit PRN Q6HRS PRN IV FOR UFH LEVEL LESS THAN 0.2; Start 04/10/19 at 23:45; Stop 04/11/19 at 09:54; Status DC Amiodarone HCl 450 mg/Dextrose 259 ml @ 0 mls/hr CONT PRN IV SEE I/O RECORD Last administered on 04/12/19at 11:52; Start 04/11/19 at 00:00; Stop 04/11/19 at 19:36; Status DC Dextrose/Sodium Chloride 1,000 ml @ 75 mls/hr [id number] IV Last administered on 04/11/19at 01:57; Start 04/11/19 at 01:00; Stop 04/11/19 at 10:53; Status DC Potassium Chloride/Water 100 ml @ 50 mls/hr PRN DAILY PRN IV K+ level less than 3.1 mEq/l; Start 04/11/19 at 02:00; Status Cancel Potassium Chloride/Water 100 ml @ 100 mls/hr PRN Q1HR PRN IV K<3.1; Start 04/11/19 at 02:00 Magnesium Sulfate/ Dextrose 100 ml @ 100 mls/hr PRN DAILY PRN IV MAG level 2.4-3.0mg/dl; Start 04/11/19 at 06:45; Status UNV Potassium Chloride/Water 100 ml @ 100 mls/hr PRN DAILY PRN IV K+ level 3.1- 3.4mEq/L; Start 04/11/19 at 06:45; Status UNV Atropine Sulfate (ATROPINE 0.5mg SYRINGE) 0.25 mg 1X ONCE IM ; Start 04/11/19 at 09:45; Stop 04/11/19 at 09:38; Status DC Atropine Sulfate (ATROPINE 1mg SYRINGE) 0.25 mg 1X ONCE IM Last administered on 04/11/19at 09:55; Start 04/11/19 at 09:45; Stop 04/11/19 at 09:46; Status DC Dopamine HCl/ Dextrose 250 ml @ 6.676 mls/ hr CONT PRN IV SEE I/O RECORD Last administered on 04/12/19at 20:21; Start 04/11/19 at 10:00; Stop 04/14/19 at 13:51; Status DC Sodium Chloride 1,000 ml @ 75 mls/hr [id number] IV Last administered on 04/11/19at 19:36; Start 04/11/19 at 12:00; Stop 04/13/19 at 15:18; Status DC Heparin Sodium (Porcine) (Heparin Sodium) 5,000 unit BID SQ Last administered on 04/14/19at 21:19; Start 04/11/19 at 21:00; Stop 04/15/19 at 12:18; Status DC Atropine Sulfate (ATROPINE 1mg SYRINGE) 1 mg STK-MED ONCE .ROUTE ; Start 04/10/19 at 15:16; Stop 04/11/19 at 15:16; Status DC Amiodarone HCl 450 mg/Dextrose 259 ml @ 33 mls/hr CONT PRN PRN IV SEE I/O RECORD Last administered on 04/13/19at 04:37; Start 04/12/19 at 08:15; Stop 04/14/19 at 13:51; Status DC Acetaminophen (Tylenol) 650 mg PRN Q6HRS PRN PEG MILD PAIN / TEMP Last administered on 04/13/19at 00:02; Start 04/12/19 at 11:30 Dexmedetomidine HCl 400 mcg/ Sodium Chloride 100 ml @ 0 mls/hr CONT PRN IV ANXIETY / AGITATION Last administered on 04/15/19at 05:23; Start 04/13/19 at 08:00; Stop 04/16/19 at 11:22; Status DC Piperacillin Sod/ Tazobactam Sod 4.5 gm/Sodium Chloride 100 ml @ 200 mls/hr Q6HRS IV Last administered on 04/18/19at 06:20; Start 04/13/19 at 09:00 Sodium Chloride 1,000 ml @ 75 mls/hr [id number] IV ; Start 04/13/19 at 15:30; Status Cancel Sodium Chloride 1,000 ml @ 75 mls/hr [id number] IV Last administered on 04/14/19at 05:05; Start 04/13/19 at 15:45; Stop 04/14/19 at 18:32; Status DC Haloperidol Lactate (Haldol Inj) 2 mg PRN Q6HRS PRN IVP AGITATION 3RD CHOICE Last administered on 04/16/19at 05:48; Start 04/14/19 at 10:30 Furosemide (Lasix) 40 mg 1X ONCE IVP Last administered on 04/14/19at 13:19; Start 04/14/19 at 13:00; Stop 04/14/19 at 13:01; Status DC Hydralazine HCl (Apresoline Inj) 10 mg PRN Q4HRS PRN IVP ELEVATED BP, SEE COMMENTS Last administered on 04/18/19at 04:13; Start 04/14/19 at 13:00 Atropine Sulfate (ATROPINE 1mg SYRINGE) 1 mg STK-MED ONCE .ROUTE ; Start 04/10/19 at 10:00; Stop 04/14/19 at 13:34; Status DC Calcium Chloride 1,000 mg STK-MED ONCE IV ; Start 04/10/19 at 10:00; Stop 04/14/19 at 13:34; Status DC Metoprolol Tartrate (Lopressor Vial) 5 mg Q6HRS IVP Last administered on 04/17/19at 23:24; Start 04/14/19 at 14:30; Stop 04/18/19 at 08:00; Status DC Magnesium Sulfate 50 ml @ 25 mls/hr 1X ONCE IV Last administered on 04/14/19at 15:39; Start 04/14/19 at 15:00; Stop 04/14/19 at 16:59; Status DC Potassium Chloride/Water 100 ml @ 100 mls/hr Q1H IV Last administered on 04/14/19at 16:46; Start 04/14/19 at 15:00; Stop 04/14/19 at 16:59; Status DC Amiodarone HCl 450 mg/Dextrose 259 ml @ 17 mls/hr CONT PRN IV SEE I/O RECORD Last administered on 04/15/19at 05:22; Start 04/14/19 at 15:15; Stop 04/15/19 at 05:23; Status DC Lorazepam (Ativan Inj) 0.5 mg PRN Q4HRS PRN IVP ANXIETY / AGITATION; Start 04/15/19 at 08:15 Lorazepam (Ativan Inj) 1 mg PRN Q4HRS PRN IVP ANXIETY / AGITATION Last administered on 04/15/19at 23:51; Start 04/15/19 at 08:30 Potassium Chloride/Water 100 ml @ 100 mls/hr Q1H IV Last administered on 04/15/19at 13:05; Start 04/15/19 at 09:00; Stop 04/15/19 at 10:59; Status DC Lidocaine/ Epinephrine (LIDOCAINE 2%-EPI 1:100,000 multi-dose) 20 ml 1X ONCE IJ Last administered on 04/15/19at 11:09; Start 04/15/19 at 09:00; Stop 04/15/19 at 09:06; Status DC Bacitracin 25983 unit/Sodium Chloride 250 ml @ 0 mls/hr 1X ONCE IRR Last administered on 04/15/19at 11:45; Start 04/15/19 at 09:00; Stop 04/15/19 at 09:06; Status DC Cefazolin Sodium (Ancef) 1 gm 1X ONCE IVP Last administered on 04/15/19at 11:07; Start 04/15/19 at 09:00; Stop 04/15/19 at 09:06; Status DC Midazolam HCl (Versed) 2 mg STK-MED ONCE .ROUTE ; Start 04/15/19 at 09:38; Stop 04/15/19 at 09:38; Status DC Propofol 50 ml @ As Directed STK-MED ONCE IV ; Start 04/15/19 at 09:40; Stop 04/15/19 at 09:40; Status DC Furosemide (Lasix) 40 mg 1X ONCE IVP ; Start 04/15/19 at 10:15; Stop 04/15/19 at 10:16; Status DC Furosemide (Lasix) 40 mg STK-MED ONCE .ROUTE ; Start 04/15/19 at 10:03; Stop 04/15/19 at 10:03; Status DC Lidocaine/ Epinephrine (LIDOCAINE 2%-EPI 1:100,000 multi-dose) 20 ml STK-MED ONCE .ROUTE ; Start 04/15/19 at 10:08; Stop 04/15/19 at 10:09; Status DC Iohexol (Omnipaque 300 Mg/ml) 100 ml STK-MED ONCE .ROUTE ; Start 04/15/19 at 11:16; Stop 04/15/19 at 11:16; Status DC Iohexol (Omnipaque 300 Mg/ml) 10 ml 1X ONCE IART Last administered on 04/15/19at 11:17; Start 04/15/19 at 12:00; Stop 04/15/19 at 12:05; Status DC Info (CONTRAST GIVEN -- Rx MONITORING) 1 each PRN DAILY PRN MC SEE COMMENTS; Start 04/15/19 at 12:15; Stop 04/17/19 at 12:14; Status DC Info (No Anticoagulant Therapy) 1 ea CONT PRN PRN MC PER PROTOCOL; Start 04/15/19 at 12:15 Cefazolin Sodium (Ancef) 1 gm 1X ONCE IVP ; Start 04/15/19 at 12:30; Stop 04/15/19 at 12:31; Status UNV Acetaminophen (Tylenol) 650 mg PRN Q6HRS PRN PO MILD PAIN 1-3 Last administered on 04/18/19at 01:22; Start 04/15/19 at 12:15 Labetalol HCl (Normodyne Iv Push) 20 mg PRN Q2HR PRN IVP HYPERTENSION Last administered on 04/18/19at 06:44; Start 04/15/19 at 16:00 Nitroglycerin (Nitro-Bid Oint) 1 inch Q6HRS TP Last administered on 04/15/19at 17:05; Start 04/15/19 at 18:00; Stop 04/15/19 at 20:46; Status DC Nitroglycerin/ Dextrose 250 ml @ 1.5 mls/hr CONT PRN IV SEE I/O RECORD Last administered on 04/16/19at 13:12; Start 04/15/19 at 20:45; Stop 04/16/19 at 18:25; Status DC Potassium Chloride (Klor-Con) 40 meq Q2H PO ; Start 04/16/19 at 08:00; Stop 04/16/19 at 07:52; Status DC Potassium Chloride/Water 100 ml @ 100 mls/hr Q1H IV Last administered on 04/16/19at 09:18; Start 04/16/19 at 08:00; Stop 04/16/19 at 09:59; Status DC Nitroglycerin (Nitro-Bid Oint) 1 inch Q6HRS TP Last administered on 04/18/19at 06:22; Start 04/16/19 at 12:00; Stop 04/18/19 at 08:00; Status DC Nitroglycerin (Nitro-Bid Oint) 1 inch 1X ONCE TP Last administered on 04/16/19at 09:48; Start 04/16/19 at 09:45; Stop 04/16/19 at 09:46; Status DC Amiodarone HCl 150 mg/Dextrose 103 ml @ 618 mls/hr 1X ONCE IV Last administered on 04/16/19at 09:48; Start 04/16/19 at 10:00; Stop 04/16/19 at 10:09; Status DC Amiodarone HCl 450 mg/Dextrose 259 ml @ 0 mls/hr CONT PRN IV SEE I/O RECORD Last administered on 04/16/19at 23:01; Start 04/16/19 at 09:30; Stop 04/16/19 at 23:14; Status DC Potassium Chloride/Water 100 ml @ 100 mls/hr Q1H IV Last administered on 04/16/19at 13:14; Start 04/16/19 at 10:00; Stop 04/16/19 at 11:59; Status DC Aspirin (Aspirin Rectal Supp) 150 mg 1X ONCE DE Last administered on 04/16/19at 13:14; Start 04/16/19 at 10:30; Stop 04/16/19 at 10:31; Status DC Amino Acids/ Electrolytes/ Dextrose 1,000 ml @ 80 mls/hr [id number] IV Last administered on 04/18/19at 07:58; Start 04/16/19 at 16:00 Furosemide (Lasix) 40 mg 1X ONCE IVP Last administered on 04/16/19at 17:42; Start 04/16/19 at 18:00; Stop 04/16/19 at 18:01; Status DC Potassium Chloride/Water 100 ml @ 100 mls/hr 1X ONCE IV Last administered on 04/17/19at 09:06; Start 04/17/19 at 09:00; Stop 04/17/19 at 09:59; Status DC Nicardipine HCl 50 mg/Sodium Chloride 250 ml @ 100 mls/hr CONT PRN IV SEE I/O RECORD; Start 04/17/19 at 08:45; Stop 04/17/19 at 11:45; Status DC Potassium Chloride/Water 100 ml @ 100 mls/hr Q1H IV Last administered on 04/17/19at 10:58; Start 04/17/19 at 09:00; Stop 04/17/19 at 10:59; Status DC Metoprolol Tartrate (Lopressor) 50 mg BID PO Last administered on 04/18/19at 09:01; Start 04/17/19 at 11:45 Amlodipine Besylate (Norvasc) 10 mg DAILY PO Last administered on 04/18/19at 09:01; Start 04/17/19 at 11:45 Amiodarone HCl (Cordarone) 400 mg DAILY PO Last administered on 04/18/19at 09:02; Start 1/24/20 at 09:00 Potassium Bicarbonate (Potassium Effervescent Tablet) 20 meq 1X ONCE PO Last administered on 04/17/19at 12:44; Start 04/17/19 at 11:45; Stop 04/17/19 at 11:48; Status DC Hydrochlorothiazide (Microzide) 12.5 mg DAILY PO Last administered on 04/17/19at 12:12; Start 04/17/19 at 11:45; Stop 04/18/19 at 08:00; Status DC Lisinopril (Prinivil) 20 mg DAILY PO Last administered on 04/18/19at 09:01; Start 04/17/19 at 15:15 Atorvastatin Calcium (Lipitor) 10 mg QHS PO Last administered on 04/17/19at 21:08; Start 04/17/19 at 21:00 Aspirin (Ecotrin) 81 mg [id number] PO Last administered on 04/18/19at 09:02; Start 04/18/19 at 08:00 Chlorthalidone (Thalitone) 25 mg DAILY PO Last administered on 04/18/19at 09:02; Start 04/18/19 at 09:00 Active Scripts Active Reported Atorvastatin Calcium 10 Mg Tablet 10 Mg PO HS Lisinopril 30 Mg Tablet 1 Tab PO DAILY Celebrex (Celecoxib) 100 Mg Capsule 1 Cap PO BID Verapamil Er (Verapamil Hcl) 240 Mg Cap24h.pel 1 Cap PO DAILY Vitals/I & O Vital Sign - Last 24 Hours 04/17/19 04/17/19 04/17/19 04/17/19 09:35 10:20 11:00 11:35 Temp 97.7 97.7 Pulse 75 75 70 70 Resp 20 B/P (MAP) 176/107 (130) 176/107 151/83 (105) 181/91 (121) Pulse Ox 97 O2 Delivery Nasal Cannula O2 Flow Rate 3.0 04/17/19 04/17/19 04/17/19 04/17/19 12:12 12:12 12:13 12:13 Pulse 70 70 70 70 B/P (MAP) 181/91 181/91 181/91 181/91 04/17/19 04/17/19 04/17/19 04/17/19 12:36 15:00 15:59 17:51 Temp 97.7 97.7 Pulse 66 66 66 66 Resp 20 B/P (MAP) 168/86 (113) 167/80 (109) 167/80 167/80 Pulse Ox 99 O2 Delivery Nasal Cannula O2 Flow Rate 2.0 04/17/19 04/17/19 04/17/19 04/17/19 17:51 17:52 19:10 19:25 Temp 98.3 98.3 Pulse 66 66 75 Resp 20 B/P (MAP) 167/80 167/80 152/70 (97) Pulse Ox 95 O2 Delivery Nasal Cannula Nasal Cannula O2 Flow Rate 1.0 1.0 04/17/19 04/17/19 04/17/19 04/17/19 21:09 23:22 23:24 23:40 Temp 98.8 98.8 Pulse 75 78 79 78 Resp 16 B/P (MAP) 152/70 178/83 178/83 178/83 (114) Pulse Ox 94 O2 Delivery Nasal Cannula O2 Flow Rate 1.0 04/18/19 04/18/19 04/18/19 04/18/19 03:12 04:13 06:22 06:44 Temp 97.3 97.3 Pulse 63 69 56 128 Resp 20 B/P (MAP) 177/98 (124) 177/98 204/89 204/89 Pulse Ox 92 O2 Delivery Nasal Cannula O2 Flow Rate 1.0 04/18/19 04/18/19 04/18/19 04/18/19 08:00 09:01 09:01 09:01 Temp 97.5 97.5 Pulse 114 114 114 114 Resp 14 B/P (MAP) 154/75 (101) 154/75 154/75 154/75 Pulse Ox 97 O2 Delivery Nasal Cannula O2 Flow Rate 1.0 04/18/19 09:02 Pulse 73 B/P (MAP) 154/75 Intake and Output 04/17/19 04/17/19 04/18/19 15:00 23:00 07:00 Intake Total 240 ml 240 ml 160 ml Output Total 575 ml 1650 ml Balance -335 ml 240 ml -1490 ml GAIL WOOD MD Apr 18, 2019 09:05
[2019-04-18 09:28] LABS: % ATYL 2 % (0-0); % BANDS 1 % (0-9); % EOS 4 % (0-5); % LYMPHS 21 % (24-48); % MONOS 6 % (0-10); % SEGS 66 % (35-66); PLT ESTIMATE ADEQUATE (ADEQUATE)
--- NOTE | 2019-04-18 09:47 | PDOC ---
PULMONARY PROGRESS NOTES Subjective extubated 04/14 S/P AICD on 04/15 fully awake, no soa Vitals Vital Signs Date Time Temp Pulse Resp B/P (MAP) Pulse Ox O2 Delivery O2 Flow Rate FiO2 04/18/19 09:02 73 154/75 04/18/19 08:00 97.5 14 97 Nasal Cannula 1.0 97.5 ROS: No Nausea, No Chest Pain, No Abdominal Pain, No Increase Cough General: Alert, No acute distress Lungs: Clear Cardiovascular: Other (afib ) Abdomen: Soft, Non-tender Neuro Exam: Alert Extremities: No Edema Skin: Warm, Dry Labs Laboratory Tests Test 04/16/19 16:20 04/17/19 07:55 04/18/19 06:30 Sodium Level 147 mmol/L (136-145) 144 mmol/L (136-145) 142 mmol/L (136-145) Potassium Level 3.2 mmol/L (3.5-5.1) 3.1 mmol/L (3.5-5.1) 3.8 mmol/L (3.5-5.1) Chloride Level 113 mmol/L (98-107) 108 mmol/L (98-107) 107 mmol/L (98-107) Carbon Dioxide Level 26 mmol/L (21-32) 28 mmol/L (21-32) 27 mmol/L (21-32) Anion Gap 8 (6-14) 8 (6-14) 8 (6-14) Blood Urea Nitrogen 18 mg/dL (7-20) 21 mg/dL (7-20) 19 mg/dL (7-20) Creatinine 0.6 mg/dL (0.6-1.0) 0.6 mg/dL (0.6-1.0) 0.6 mg/dL (0.6-1.0) Estimated GFR (Cockcroft-Gault) 102.0 102.0 102.0 Glucose Level 134 mg/dL (70-99) 147 mg/dL (70-99) 121 mg/dL (70-99) Calcium Level 7.4 mg/dL (8.5-10.1) 8.6 mg/dL (8.5-10.1) 8.2 mg/dL (8.5-10.1) White Blood Count 10.9 x10^3/uL (4.0-11.0) 12.9 x10^3/uL (4.0-11.0) Red Blood Count 2.94 x10^6/uL (3.50-5.40) 3.21 x10^6/uL (3.50-5.40) Hemoglobin 8.6 g/dL (12.0-15.5) 9.2 g/dL (12.0-15.5) Hematocrit 25.3 % (36.0-47.0) 28.2 % (36.0-47.0) Mean Corpuscular Volume 86 fL (79-100) 88 fL (79-100) Mean Corpuscular Hemoglobin 29 pg (25-35) 29 pg (25-35) Mean Corpuscular Hemoglobin Concent 34 g/dL (31-37) 33 g/dL (31-37) Red Cell Distribution Width 13.5 % (11.5-14.5) 13.9 % (11.5-14.5) Platelet Count 243 x10^3/uL (140-400) 326 x10^3/uL (140-400) Neutrophils (%) (Auto) 70 % (31-73) 72 % (31-73) Lymphocytes (%) (Auto) 14 % (24-48) 16 % (24-48) Monocytes (%) (Auto) 15 % (0-9) 10 % (0-9) Eosinophils (%) (Auto) 1 % (0-3) 2 % (0-3) Basophils (%) (Auto) 0 % (0-3) 0 % (0-3) Neutrophils # (Auto) 7.7 x10^3/uL (1.8-7.7) 9.3 x10^3/uL (1.8-7.7) Lymphocytes # (Auto) 1.5 x10^3/uL (1.0-4.8) 2.0 x10^3/uL (1.0-4.8) Monocytes # (Auto) 1.7 x10^3/uL (0.0-1.1) 1.3 x10^3/uL (0.0-1.1) Eosinophils # (Auto) 0.1 x10^3/uL (0.0-0.7) 0.2 x10^3/uL (0.0-0.7) Basophils # (Auto) 0.0 x10^3/uL (0.0-0.2) 0.0 x10^3/uL (0.0-0.2) BUN/Creatinine Ratio 35 (6-20) 32 (6-20) Total Bilirubin 0.6 mg/dL (0.2-1.0) 0.4 mg/dL (0.2-1.0) Aspartate Amino Transf (AST/SGOT) 70 U/L (15-37) 68 U/L (15-37) Alanine Aminotransferase (ALT/SGPT) 83 U/L (14-59) 104 U/L (14-59) Alkaline Phosphatase 58 U/L (46-116) 58 U/L (46-116) Total Protein 5.2 g/dL (6.4-8.2) 5.5 g/dL (6.4-8.2) Albumin 1.9 g/dL (3.4-5.0) 2.0 g/dL (3.4-5.0) Albumin/Globulin Ratio 0.6 (1.0-1.7) 0.6 (1.0-1.7) Segmented Neutrophils % 66 % (35-66) Band Neutrophils % 1 % (0-9) Lymphocytes % 21 % (24-48) Atypical Lymphocytes % (Manual) 2 % (0-0) Monocytes % 6 % (0-10) Eosinophils % 4 % (0-5) Platelet Estimate Adequate (ADEQUATE) Laboratory Tests Test 04/18/19 06:30 White Blood Count 12.9 x10^3/uL (4.0-11.0) Red Blood Count 3.21 x10^6/uL (3.50-5.40) Hemoglobin 9.2 g/dL (12.0-15.5) Hematocrit 28.2 % (36.0-47.0) Mean Corpuscular Volume 88 fL (79-100) Mean Corpuscular Hemoglobin 29 pg (25-35) Mean Corpuscular Hemoglobin Concent 33 g/dL (31-37) Red Cell Distribution Width 13.9 % (11.5-14.5) Platelet Count 326 x10^3/uL (140-400) Neutrophils (%) (Auto) 72 % (31-73) Lymphocytes (%) (Auto) 16 % (24-48) Monocytes (%) (Auto) 10 % (0-9) Eosinophils (%) (Auto) 2 % (0-3) Basophils (%) (Auto) 0 % (0-3) Neutrophils # (Auto) 9.3 x10^3/uL (1.8-7.7) Lymphocytes # (Auto) 2.0 x10^3/uL (1.0-4.8) Monocytes # (Auto) 1.3 x10^3/uL (0.0-1.1) Eosinophils # (Auto) 0.2 x10^3/uL (0.0-0.7) Basophils # (Auto) 0.0 x10^3/uL (0.0-0.2) Segmented Neutrophils % 66 % (35-66) Band Neutrophils % 1 % (0-9) Lymphocytes % 21 % (24-48) Atypical Lymphocytes % (Manual) 2 % (0-0) Monocytes % 6 % (0-10) Eosinophils % 4 % (0-5) Platelet Estimate Adequate (ADEQUATE) Sodium Level 142 mmol/L (136-145) Potassium Level 3.8 mmol/L (3.5-5.1) Chloride Level 107 mmol/L (98-107) Carbon Dioxide Level 27 mmol/L (21-32) Anion Gap 8 (6-14) Blood Urea Nitrogen 19 mg/dL (7-20) Creatinine 0.6 mg/dL (0.6-1.0) Estimated GFR (Cockcroft-Gault) 102.0 BUN/Creatinine Ratio 32 (6-20) Glucose Level 121 mg/dL (70-99) Calcium Level 8.2 mg/dL (8.5-10.1) Total Bilirubin 0.4 mg/dL (0.2-1.0) Aspartate Amino Transf (AST/SGOT) 68 U/L (15-37) Alanine Aminotransferase (ALT/SGPT) 104 U/L (14-59) Alkaline Phosphatase 58 U/L (46-116) Total Protein 5.5 g/dL (6.4-8.2) Albumin 2.0 g/dL (3.4-5.0) Albumin/Globulin Ratio 0.6 (1.0-1.7) Medications Active Scripts Medications Dose Route/Sig Max Daily Dose Days Date Category Celebrex (Celecoxib) 100 Mg Capsule 1 Cap PO BID 04/11/19 Reported Verapamil Er (Verapamil Hcl) 240 Mg Cap24h.pel 1 Cap PO DAILY 04/11/19 Reported Comments cxr reviewed 04/15 increase bilateral infiltrate c/w CHF CTA CHEST IMPRESSION: 1. No pulmonary embolus identified within the main, lobar or segmental pulmonary arteries. 2. Layering consolidative changes in the lungs bilaterally greater on the left favored to represent pulmonary edema. Superimposed infectious process is difficult to exclude. FINDINGS 1. Hemodynamics: Left ventricular end-diastolic pressure 5 mmHg. No pullback gradient across the aortic valve. 2. Left ventriculography: Normal left ventricle systolic function with ejection fraction estimated at 55%. No significant mitral regurgitation seen. 3. Coronary angiography: a. The left main coronary artery arose from the left sinus of Valsalva, gave rise to the left anterior descending and left circumflex arteries and did not show any significant stenosis. b. The left anterior descending artery showed 30% stenosis in the midsegment. The diagonal branch showed 50% stenosis in the proximal segment. c. The left circumflex artery did not show any significant stenosis. d. The right coronary artery was a large and dominant vessel arising from the right sinus of Valsalva that showed 50% stenosis in the midsegment. This was physiologically insignificant based on IFR measurement of 1.0. Conclusion 1. Nonobstructive coronary artery disease. 50% stenosis involving dominant right coronary artery that was physiologically not significant based on IFR m easurement. The diagonal branch which is a small to medium caliber vessel also showed 50% proximal segment stenosis. 2. Normal left ventricle systolic function with ejection fraction estimated at 55%. Recommendations Consider AICD implantation for secondary prevention of sudden cardiac if workup for pulmonary embolism as negative Impression . IMPRESSION: 1. Acute respiratory failure due to [id number] cardiopulmonary arrest, etiology unclear. extubated, doing well 2. Status post emergent cardiac catheterization revealing normal ejection fraction, nonobstructive coronary artery disease, 50% stenosis involving the dominant right coronary artery. Normal left ventricular ejection fraction estimated at 55%. 3. Hypertension. 4. Recent acute bronchitis. 5. Abnormal ct chest with bilateral infiltrates 6. CXR c/w CHF, compensated. 7. afib RVR , controlled Plan . cont. supplemental oxygent o keep sats above 92 % cardiology following --- rakel. recs--- S/P AICD on 04/15/2019 AFIB per cardiology HTN per PCP/ cardiology-- CT chest was (-) for PE replace electrolytes as needed cont. nebs cont. ABXS dysphagia diet cont DVT/GI PPX much improved pulmonary status discussed w RN / family increase PT ABDOULAYE CAT MD Apr 18, 2019 09:46
--- NOTE | 2019-04-18 10:51 | PDOC ---
[facility] PROGRESS NOTE Chief Complaint Chief Complaint Status post cardiac arrest Status post cardiac cath with no flow limiting lesions evident AICD placement on 04/15/2019 Arrhythmia, patient will need AICD once more stable. Delirium, patient can be easily redirected, no focal deficits, no evidence of seizure activity on EEG History of essential hypertension History of dyslipidemia bracycardia most likely due to amiodarone Leukocytosis reactive most likely but will cover with ATB for possible aspiration pneumonia History of Present Illness History of Present Illness [id number] Patient seen and examined Her Christopher just arrived Clinically patient is improving but very tachycardic at 140 bpm Still has her left arm brace on Discussed with RN Chart reviewed Discussed with case management Vitals/I&O Vitals/I&O: Vital Signs Date Time Temp Pulse Resp B/P (MAP) Pulse Ox O2 Delivery O2 Flow Rate FiO2 04/18/19 09:02 73 154/75 04/18/19 08:30 Room Air 04/18/19 08:00 97.5 14 97 1.0 97.5 I & O 04/17/19 04/17/19 04/18/19 15:00 23:00 07:00 Intake Total 240 ml 240 ml 160 ml Output Total 575 ml 1650 ml Balance -335 ml 240 ml -1490 ml Physical Exam General: Alert, Oriented X3, Cooperative, Other (remains intubated) Heart: Other (tachycardic at 180 bpm) Lungs: Clear Abdomen: Normal bowel sounds Extremities: No cyanosis, No edema Skin: No rashes, No significant lesion Labs Labs: Laboratory Tests Test 04/18/19 06:30 White Blood Count 12.9 x10^3/uL (4.0-11.0) Red Blood Count 3.21 x10^6/uL (3.50-5.40) Hemoglobin 9.2 g/dL (12.0-15.5) Hematocrit 28.2 % (36.0-47.0) Mean Corpuscular Volume 88 fL (79-100) Mean Corpuscular Hemoglobin 29 pg (25-35) Mean Corpuscular Hemoglobin Concent 33 g/dL (31-37) Red Cell Distribution Width 13.9 % (11.5-14.5) Platelet Count 326 x10^3/uL (140-400) Neutrophils (%) (Auto) 72 % (31-73) Lymphocytes (%) (Auto) 16 % (24-48) Monocytes (%) (Auto) 10 % (0-9) Eosinophils (%) (Auto) 2 % (0-3) Basophils (%) (Auto) 0 % (0-3) Neutrophils # (Auto) 9.3 x10^3/uL (1.8-7.7) Lymphocytes # (Auto) 2.0 x10^3/uL (1.0-4.8) Monocytes # (Auto) 1.3 x10^3/uL (0.0-1.1) Eosinophils # (Auto) 0.2 x10^3/uL (0.0-0.7) Basophils # (Auto) 0.0 x10^3/uL (0.0-0.2) Segmented Neutrophils % 66 % (35-66) Band Neutrophils % 1 % (0-9) Lymphocytes % 21 % (24-48) Atypical Lymphocytes % (Manual) 2 % (0-0) Monocytes % 6 % (0-10) Eosinophils % 4 % (0-5) Platelet Estimate Adequate (ADEQUATE) Sodium Level 142 mmol/L (136-145) Potassium Level 3.8 mmol/L (3.5-5.1) Chloride Level 107 mmol/L (98-107) Carbon Dioxide Level 27 mmol/L (21-32) Anion Gap 8 (6-14) Blood Urea Nitrogen 19 mg/dL (7-20) Creatinine 0.6 mg/dL (0.6-1.0) Estimated GFR (Cockcroft-Gault) 102.0 BUN/Creatinine Ratio 32 (6-20) Glucose Level 121 mg/dL (70-99) Calcium Level 8.2 mg/dL (8.5-10.1) Total Bilirubin 0.4 mg/dL (0.2-1.0) Aspartate Amino Transf (AST/SGOT) 68 U/L (15-37) Alanine Aminotransferase (ALT/SGPT) 104 U/L (14-59) Alkaline Phosphatase 58 U/L (46-116) Total Protein 5.5 g/dL (6.4-8.2) Albumin 2.0 g/dL (3.4-5.0) Albumin/Globulin Ratio 0.6 (1.0-1.7) Review of Systems Review of Systems: Complains of weakness Complains of hunger Assessment and Plan Assessmemt and Plan Problems Medical Problems: (1) Acute respiratory acidosis Status: Acute (2) Cardiorespiratory arrest Status: Acute (3) Elevated d-dimer Status: Acute (4) Elevated troponin Status: Acute (5) Hyperglycemia Status: Acute (6) Hypokalemia Status: Acute (7) NSTEMI (non-ST elevated myocardial infarction) Status: Acute (8) Pneumonia Status: Acute (9) Sepsis Status: Acute (10) Severe sepsis Status: Acute Chief Complaint Status post cardiac arrest Status post cardiac cath with no flow limiting lesions evident AICD placement on 04/15/2019 Arrhythmia, patient will need AICD once more stable. Delirium, patient can be easily redirected, no focal deficits, no evidence of seizure activity on EEG History of essential hypertension History of dyslipidemia bracycardia most likely due to amiodarone Leukocytosis reactive most likely but will cover with ATB for possible aspiration pneumonia Plan: Cardiac monitoring We'll probably need to increase her negative chronotropic agents supportive measures Much more awake alert and oriented compared to yesterday from the neurological standpoint of view reassurance has been provided to her at bedside ACID care as per instructional systems design consultant We'll consult PT She might need to be transition to a fdc facility will follow recommendations from physical therapy Zosyn Continue following cardiology recommendations regarding meds replace potassium patient may be moved out of the ICU once cleared by consultants Comment Review of Relevant I have reviewed the following items fracisco (where applicable) has been applied. Medications: Current Medications Medications (Trade) Dose Ordered Sig/Tank Route PRN Reason Start Time Stop Time Status Last Admin Dose Admin Metoprolol Tartrate (Lopressor) 50 mg BID PO 04/17/19 11:45 04/18/19 09:01 Amlodipine Besylate (Norvasc) 10 mg DAILY PO 04/17/19 11:45 04/18/19 09:01 Amiodarone HCl (Cordarone) 400 mg DAILY PO 04/18/19 09:00 04/18/19 09:02 Potassium Bicarbonate (Potassium Effervescent Tablet) 20 meq 1X ONCE PO 04/17/19 11:45 04/17/19 11:48 DC 04/17/19 12:44 Hydrochlorothiazide (Microzide) 12.5 mg DAILY PO 04/17/19 11:45 04/18/19 08:00 DC 04/17/19 12:12 Lisinopril (Prinivil) 20 mg DAILY PO 04/17/19 15:15 04/18/19 09:01 Atorvastatin Calcium (Lipitor) 10 mg QHS PO 04/17/19 21:00 04/17/19 21:08 Aspirin (Ecotrin) 81 mg DAILYWBKFT PO 04/18/19 08:00 04/18/19 09:02 Chlorthalidone (Thalitone) 25 mg DAILY PO 04/18/19 09:00 04/18/19 09:02 MADDI QUINTEROS III DO Apr 18, 2019 10:51
[2019-04-18 11:30] VITALS: BP 169/81
[2019-04-18] MEDS ORDERED: ANTI-COAG MONITOR BY PHARMACY. MC PRN (12:30)
--- NOTE | 2019-04-18 12:43 | NUR ---
SS following up with discharge planning. PT/OT recommending acute rehabilitation. SS met with pt and pt's spouse in room to discuss discharge planning and acute rehabilitation. Pt and pt's spouse resistant to inpatient rehabilitation. Pt's spouse requesting to speak with PT/OT. Pt and pt's spouse reported that they preferred pt to return to home with home healthcare services. SS contacted therapy department and left voicemail requesting that they meet with pt and spouse in room. Pt's RN notified. SS will continue to follow for discharge planning.
--- NOTE | 2019-04-18 13:06 | PDOC ---
JUAN J GONZALEZ LAUNDRY MACHINE OPERATOR 04/18/19 1306: CARDIO Progress Notes Date and Time Date of Service 04/18/2019 Time of Evaluation 1200 Subjective Subjective: No Chest Pain, No shortness of breath, No Palpitations Vitals Vitals Vital Signs Date Time Temp Pulse Resp B/P (MAP) Pulse Ox O2 Delivery O2 Flow Rate FiO2 04/18/19 11:30 97.7 64 16 169/81 (110) 96 Room Air 97.7 04/18/19 08:00 1.0 Weight Weight [ ] Input and Output Intake and Output Intake and Output 04/18/19 07:00 Intake Total 640 ml Output Total 2225 ml Balance -1585 ml Intake Oral 540 ml IV Total 100 ml Output Urine Total 2225 ml # Bowel Movements 1 Laboratory Labs Laboratory Tests Test 04/18/19 06:30 White Blood Count 12.9 x10^3/uL (4.0-11.0) Red Blood Count 3.21 x10^6/uL (3.50-5.40) Hemoglobin 9.2 g/dL (12.0-15.5) Hematocrit 28.2 % (36.0-47.0) Mean Corpuscular Volume 88 fL (79-100) Mean Corpuscular Hemoglobin 29 pg (25-35) Mean Corpuscular Hemoglobin Concent 33 g/dL (31-37) Red Cell Distribution Width 13.9 % (11.5-14.5) Platelet Count 326 x10^3/uL (140-400) Neutrophils (%) (Auto) 72 % (31-73) Lymphocytes (%) (Auto) 16 % (24-48) Monocytes (%) (Auto) 10 % (0-9) Eosinophils (%) (Auto) 2 % (0-3) Basophils (%) (Auto) 0 % (0-3) Neutrophils # (Auto) 9.3 x10^3/uL (1.8-7.7) Lymphocytes # (Auto) 2.0 x10^3/uL (1.0-4.8) Monocytes # (Auto) 1.3 x10^3/uL (0.0-1.1) Eosinophils # (Auto) 0.2 x10^3/uL (0.0-0.7) Basophils # (Auto) 0.0 x10^3/uL (0.0-0.2) Segmented Neutrophils % 66 % (35-66) Band Neutrophils % 1 % (0-9) Lymphocytes % 21 % (24-48) Atypical Lymphocytes % (Manual) 2 % (0-0) Monocytes % 6 % (0-10) Eosinophils % 4 % (0-5) Platelet Estimate Adequate (ADEQUATE) Sodium Level 142 mmol/L (136-145) Potassium Level 3.8 mmol/L (3.5-5.1) Chloride Level 107 mmol/L (98-107) Carbon Dioxide Level 27 mmol/L (21-32) Anion Gap 8 (6-14) Blood Urea Nitrogen 19 mg/dL (7-20) Creatinine 0.6 mg/dL (0.6-1.0) Estimated GFR (Cockcroft-Gault) 102.0 BUN/Creatinine Ratio 32 (6-20) Glucose Level 121 mg/dL (70-99) Calcium Level 8.2 mg/dL (8.5-10.1) Total Bilirubin 0.4 mg/dL (0.2-1.0) Aspartate Amino Transf (AST/SGOT) 68 U/L (15-37) Alanine Aminotransferase (ALT/SGPT) 104 U/L (14-59) Alkaline Phosphatase 58 U/L (46-116) Total Protein 5.5 g/dL (6.4-8.2) Albumin 2.0 g/dL (3.4-5.0) Albumin/Globulin Ratio 0.6 (1.0-1.7) Microbiology Micro Microbiology 04/13/19 - Final, Resulted 04/13/19 - Final, Resulted 04/13/19 - Final, Resulted 04/13/19 - Preliminary, Resulted 04/13/19 - Preliminary, Resulted 04/13/19 - Preliminary, Resulted 04/13/19 Gram Stain Evaluation - Final, Resulted 04/13/19 Sputum Culture - Final, Resulted 04/13/19 Sputum Result 1 - Final, Resulted 04/10/19 Blood Culture - Final, Complete NO GROWTH AFTER 5 DAYS Physical Exam HEENT: Neck Supple W Full Motion Chest: Symmetric LUNGS: Other (diminished bases) Heart: RRR (SR), irregularly irregular (AFIB RVR) Abdomen: Soft N/T Extremities: No Edema, No Calf Tenderness Neurology: alert, oriented, follow commands Other Exams left chest surgical incision intact, no oozing, D&I, with strei strips. Neurovascular status intact to LUE with sling in place Assessment Assessment 1. 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 8 min to ROSC. No CAD/PE. 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 Acute respiratory failure secondary to #1. Extubated 04/14, resolved 3. Accelerated HTN: improving 4. Severe sinus bradycardia, resolved 5. PAFIB: continues to have paroxysms currently appears to be high burden 6. Nontraumatic fall: fell out of bed 7. Metabolic encephalopathy: resolved 8 . Hyperlipidemia 9. AICD: S/P biotronik, dual chamber for secondary prevention of SCA. No complications. 10. Acute diastolic CHF: possibly induced by AFIB RVR. EF at 55% compensated 11. Family hx of sudden : parents in their 60s with possible cardiac arrest 12. Hypokalemia: resolved Recommendations 1. DC NTG paste. BP regimen as follows. Norvasc. chlorthalidone, metoprolol, and lisinopril 2. If uncontrolled HTN persist then will consider hyperaldo w/u as well as renal duplex. 3. Aggressive IS 4. Continue statin. DC ASA. [id number] score 2, Discussed Eliquis and agree to get started. low bleed risk. Will provide inital samples and discount card and start after her central line is removed 5. Amiodarone therapy. Will noted AFIB burden in her next follow up. 6. Follow up in office for wound check in the office on May 01 at 1PM. Follow up with Dr. Teran May 21 at 2:15 PM 7. PT and OT eval and treat. MATTHEW Schaeffer MD 04/18/19 1328: CARDIO Progress Notes Assessment Assessment Patient seen and examined. Agree with CHOCOLATE MAKER's assessment and plan. Agree with initiation of eliquis for atrial fibrillation stroke prophylaxis once Central line is removed Blood pressure better controlled Follow-up with our office as scheduled JUAN J GONZALEZ APRN Apr 18, 2019 13:06 MATTHEW TERAN MD Apr 18, 2019 13:28
[2019-04-18] MEDS ORDERED: LISINOPRIL 10 MG TABLET PO ONE (13:30)
[2019-04-18 15:00] VITALS: BP 150/79
[2019-04-18 19:20] VITALS: BP 162/80
[2019-04-18] MEDS: ATORVASTATIN CALCIUM 10 MG TABLET. PO SCH (20:48)
[2019-04-18] MEDS: APIXABAN 5 MG TABLET. PO SCH (20:48)
[2019-04-18] MEDS: LACTOBACILLUS RHAMNOSUS GG 1 CAPSULE. PO SCH (20:49)
[2019-04-18 23:39] VITALS: BP 170/85
[2019-04-19 03:10] VITALS: BP 172/80
[2019-04-19] MEDS: LABETALOL 20 MG/4 ML DISP.SYRIN. IVP PRN (04:53)
[2019-04-19] MEDS: PIPERACILLIN/TAZOBACTAM 4.5 GM in IV NORMAL SALINE 100ML 100 ML IV SCH ×4 (05:35→23:13)
[2019-04-19 07:15] VITALS: BP 171/78
[2019-04-19] MEDS: CHLORTHALIDONE 25 MG TABLET. PO SCH (08:14)
--- NOTE | 2019-04-19 08:14 | PDOC ---
PULMONARY PROGRESS NOTES Subjective extubated 04/14 S/P AICD on 04/15 fully awake, no soa, off 02 Vitals Vital Signs Date Time Temp Pulse Resp B/P (MAP) Pulse Ox O2 Delivery O2 Flow Rate FiO2 04/19/19 04:53 74 172/80 04/19/19 03:10 98.8 18 95 Room Air 98.8 04/18/19 08:00 1.0 ROS: No Nausea, No Chest Pain, No Abdominal Pain, No Increase Cough General: Alert, No acute distress Lungs: Clear Cardiovascular: Other (afib ) Abdomen: Soft, Non-tender Neuro Exam: Alert, Oriented Extremities: No Edema Skin: Warm, Dry Labs Laboratory Tests Test 04/18/19 06:30 White Blood Count 12.9 x10^3/uL (4.0-11.0) Red Blood Count 3.21 x10^6/uL (3.50-5.40) Hemoglobin 9.2 g/dL (12.0-15.5) Hematocrit 28.2 % (36.0-47.0) Mean Corpuscular Volume 88 fL (79-100) Mean Corpuscular Hemoglobin 29 pg (25-35) Mean Corpuscular Hemoglobin Concent 33 g/dL (31-37) Red Cell Distribution Width 13.9 % (11.5-14.5) Platelet Count 326 x10^3/uL (140-400) Neutrophils (%) (Auto) 72 % (31-73) Lymphocytes (%) (Auto) 16 % (24-48) Monocytes (%) (Auto) 10 % (0-9) Eosinophils (%) (Auto) 2 % (0-3) Basophils (%) (Auto) 0 % (0-3) Neutrophils # (Auto) 9.3 x10^3/uL (1.8-7.7) Lymphocytes # (Auto) 2.0 x10^3/uL (1.0-4.8) Monocytes # (Auto) 1.3 x10^3/uL (0.0-1.1) Eosinophils # (Auto) 0.2 x10^3/uL (0.0-0.7) Basophils # (Auto) 0.0 x10^3/uL (0.0-0.2) Segmented Neutrophils % 66 % (35-66) Band Neutrophils % 1 % (0-9) Lymphocytes % 21 % (24-48) Atypical Lymphocytes % (Manual) 2 % (0-0) Monocytes % 6 % (0-10) Eosinophils % 4 % (0-5) Platelet Estimate Adequate (ADEQUATE) Sodium Level 142 mmol/L (136-145) Potassium Level 3.8 mmol/L (3.5-5.1) Chloride Level 107 mmol/L (98-107) Carbon Dioxide Level 27 mmol/L (21-32) Anion Gap 8 (6-14) Blood Urea Nitrogen 19 mg/dL (7-20) Creatinine 0.6 mg/dL (0.6-1.0) Estimated GFR (Cockcroft-Gault) 102.0 BUN/Creatinine Ratio 32 (6-20) Glucose Level 121 mg/dL (70-99) Calcium Level 8.2 mg/dL (8.5-10.1) Total Bilirubin 0.4 mg/dL (0.2-1.0) Aspartate Amino Transf (AST/SGOT) 68 U/L (15-37) Alanine Aminotransferase (ALT/SGPT) 104 U/L (14-59) Alkaline Phosphatase 58 U/L (46-116) Total Protein 5.5 g/dL (6.4-8.2) Albumin 2.0 g/dL (3.4-5.0) Albumin/Globulin Ratio 0.6 (1.0-1.7) Medications Active Scripts Medications Dose Route/Sig Max Daily Dose Days Date Category Celebrex (Celecoxib) 100 Mg Capsule 1 Cap PO BID 04/11/19 Reported Verapamil Er (Verapamil Hcl) 240 Mg Cap24h.pel 1 Cap PO DAILY 04/11/19 Reported Comments cxr reviewed 04/15 increase bilateral infiltrate c/w CHF CTA CHEST IMPRESSION: 1. No pulmonary embolus identified within the main, lobar or segmental pulmonary arteries. 2. Layering consolidative changes in the lungs bilaterally greater on the left favored to represent pulmonary edema. Superimposed infectious process is difficult to exclude. FINDINGS 1. Hemodynamics: Left ventricular end-diastolic pressure 5 mmHg. No pullback gradient across the aortic valve. 2. Left ventriculography: Normal left ventricle systolic function with ejection fraction estimated at 55%. No significant mitral regurgitation seen. 3. Coronary angiography: a. The left main coronary artery arose from the left sinus of Valsalva, gave rise to the left anterior descending and left circumflex arteries and did not show any significant stenosis. b. The left anterior descending artery showed 30% stenosis in the midsegment. The diagonal branch showed 50% stenosis in the proximal segment. c. The left circumflex artery did not show any significant stenosis. d. The right coronary artery was a large and dominant vessel arising from the right sinus of Valsalva that showed 50% stenosis in the midsegment. This was physiologically insignificant based on IFR measurement of 1.0. Conclusion 1. Nonobstructive coronary artery disease. 50% stenosis involving dominant right coronary artery that was physiologically not significant based on IFR measurement. The diagonal branch which is a small to medium caliber vessel also showed 50% proximal segment stenosis. 2. Normal left ventricle systolic function with ejection fraction estimated at 55%. Recommendations Consider AICD implantation for secondary prevention of sudden cardiac if workup for pulmonary embolism as negative Impression . IMPRESSION: 1. Acute respiratory failure due to [id number] cardiopulmonary arrest, etiology unclear. extubated, doing well 2. Status post emergent cardiac catheterization revealing normal ejection fraction, nonobstructive coronary artery disease, 50% stenosis involving the dominant right coronary artery. Normal left ventricular ejection fraction estimated at 55%. 3. Hypertension. 4. Recent acute bronchitis. 5. Abnormal ct chest with bilateral infiltrates 6. CXR c/w CHF, compensated. 7. afib RVR , controlled Plan . titrate fio2 to keep sats above 92 % , IS cardiology following --- rakel. recs--- S/P AICD on 04/15/2019 AFIB per cardiology HTN per PCP/ cardiology-- CT chest was (-) for PE replace electrolytes as needed cont. nebs cont. ABXS, dc after today dose D7 dysphagia diet cont DVT/GI PPX much improved pulmonary status discussed w RN / pt and her family increase activity, PT SIM CERON MD Apr 19, 2019 08:14
[2019-04-19] MEDS: APIXABAN 5 MG TABLET. PO SCH ×2 (08:15→20:29)
[2019-04-19] MEDS: AMIODARONE HCL 200 MG TABLET. PO SCH (08:15)
[2019-04-19] MEDS: LISINOPRIL 20 MG TABLET PO SCH (08:15)
[2019-04-19] MEDS: LACTOBACILLUS RHAMNOSUS GG 1 CAPSULE. PO SCH ×2 (08:15→20:29)
[2019-04-19] MEDS: PANTOPRAZOLE 40 MG TABLET.DR. PO SCH (08:16)
[2019-04-19] MEDS: METOPROLOL TART IMMED RELEASE 50 MG TABLET. PO SCH (08:16)
[2019-04-19] MEDS: amLODIPine BESYLATE 10 MG TABLET PO SCH (08:17)
[2019-04-19 10:40] VITALS: BP 172/85
[2019-04-19] MEDS: LABETALOL HCL 200 MG TABLET PO SCH ×2 (11:38→20:29)
--- NOTE | 2019-04-19 12:02 | PDOC ---
[facility] PROGRESS NOTE Chief Complaint Chief Complaint Status post cardiac arrest Status post cardiac cath with no flow limiting lesions evident AICD placement on 04/15/2019 Arrhythmia, patient will need AICD once more stable. Delirium, patient can be easily redirected, no focal deficits, no evidence of seizure activity on EEG History of essential hypertension History of dyslipidemia bracycardia most likely due to amiodarone Leukocytosis reactive most likely but will cover with ATB for possible aspiration pneumonia History of Present Illness History of Present Illness [id number] Patient seen and examined Her Christopher is present Chart reviewed Discussed with RN We are hoping to discharge tomorrow if okay with consultants [id number] Patient seen and examined Her Christopher just arrived Clinically patient is improving but very tachycardic at 140 bpm Still has her left arm brace on Discussed with RN Chart reviewed Discussed with case management Vitals/I&O Vitals/I&O: Vital Signs Date Time Temp Pulse Resp B/P (MAP) Pulse Ox O2 Delivery O2 Flow Rate FiO2 04/19/19 11:38 63 172/85 04/19/19 10:40 98.1 18 95 Room Air 1.0 98.1 I & O 04/18/19 04/18/19 04/19/19 15:00 23:00 07:00 Intake Total 400 ml 60 ml Output Total 2800 ml 500 ml Balance -2400 ml -440 ml Physical Exam General: Alert, Oriented X3, Cooperative, Other (remains intubated) Heart: Other (tachycardic at 180 bpm) Lungs: Clear Abdomen: Normal bowel sounds Extremities: No cyanosis, No edema Skin: No rashes, No significant lesion Review of Systems Review of Systems: No new complaints request discharge tomorrow Assessment and Plan Assessmemt and Plan Problems Medical Problems: (1) Acute respiratory acidosis Status: Acute (2) Cardiorespiratory arrest Status: Acute (3) Elevated d-dimer Status: Acute (4) Elevated troponin Status: Acute (5) Hyperglycemia Status: Acute (6) Hypokalemia Status: Acute (7) NSTEMI (non-ST elevated myocardial infarction) Status: Acute (8) Pneumonia Status: Acute (9) Sepsis Status: Acute (10) Severe sepsis Status: Acute Status post cardiac arrest Status post cardiac cath with no flow limiting lesions evident AICD placement on 04/15/2019 Arrhythmia, patient will need AICD once more stable. Delirium, patient can be easily redirected, no focal deficits, no evidence of seizure activity on EEG History of essential hypertension History of dyslipidemia bracycardia most likely due to amiodarone Leukocytosis reactive most likely but will cover with ATB for possible aspiration pneumonia Plan Continue cardiac monitoring Wound care DVT prophylaxis Full code Home meds I hope to discharge tomorrow if okay with consultants Comment Review of Relevant I have reviewed the following items fracisco (where applicable) has been applied. Medications: Current Medications Medications (Trade) Dose Ordered Sig/Tank Route PRN Reason Start Time Stop Time Status Last Admin Dose Admin Lactobacillus Rhamnosus (Culturelle) 1 cap BID PO 04/18/19 21:00 04/19/19 08:15 Pantoprazole Sodium (Protonix) 40 mg DAILYAC PO 04/19/19 07:30 04/19/19 08:16 Apixaban (Eliquis) 5 mg BID PO 04/18/19 21:00 04/19/19 08:15 Lisinopril (Prinivil) 40 mg DAILY PO 04/19/19 09:00 04/19/19 08:15 Lisinopril (Prinivil) 20 mg 1X ONCE PO 04/18/19 13:30 04/18/19 13:31 DC 04/18/19 15:00 Labetalol HCl (Trandate) 200 mg BID PO 04/19/19 10:30 04/19/19 11:38 MADDI QUINTEROS III DO Apr 19, 2019 12:02
--- NOTE | 2019-04-19 13:24 | PDOC ---
PROGRESS NOTES Subjective Subjective Continues to feel better. No new complaints. Objective Objective Vital Signs Date Time Temp Pulse Resp B/P (MAP) Pulse Ox O2 Delivery O2 Flow Rate FiO2 04/19/19 11:38 63 172/85 04/19/19 10:40 98.1 18 95 Room Air 1.0 98.1 Intake and Output 04/19/19 07:00 Intake Total 460 ml Output Total 3300 ml Balance -2840 ml Intake Oral 460 ml Output Urine Total 3300 ml # Bowel Movements 1 Physical Exam Abdomen: Normal bowel sounds Heart: Other (tachycardic at 180 bpm) Extremities: No cyanosis, No edema General: Alert, Oriented X3, Cooperative, Other (remains intubated) HEENT: Atraumatic Lungs: Other (mildly decreased breath sounds) Neck: No JVD Psych/Mental Status: Other (intubated) Skin: No rashes, No significant lesion Assessment Assessment 1. 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 no further episodes on telemetry. Patient underwent successful AICD implantation for secondary prevention of sudden cardiac . Continue amiodarone for antiarrhythmic therapy. 2. Acute respiratory failure secondary to #1. Extubated 04/14, resolved 3. Accelerated HTN: Blood pressure continues to be elevated. Change metoprolol to labetalol for better control 4. Severe sinus bradycardia, resolved 5. PAFIB: Presently in sinus rhythm. Continue eliquis for stroke prophylaxis 6. Nontraumatic fall: fell out of bed 7. Metabolic encephalopathy: resolved 8 . Hyperlipidemia: Statins 9. AICD: S/P biotronik, dual chamber for secondary prevention of SCA. No complications. 10. Acute diastolic CHF: possibly induced by AFIB RVR. EF at 55% better compensated Follow-up with our office as scheduled. Plan Plan of Care Problems Medical Problems: (1) Acute respiratory acidosis Status: Acute (2) Cardiorespiratory arrest Status: Acute (3) Elevated d-dimer Status: Acute (4) Elevated troponin Status: Acute (5) Hyperglycemia Status: Acute (6) Hypokalemia Status: Acute (7) NSTEMI (non-ST elevated myocardial infarction) Status: Acute (8) Pneumonia Status: Acute (9) Sepsis Status: Acute (10) Severe sepsis Status: Acute Comment Review of Relevant I have reviewed the following items fracisco (where applicable) has been applied. Labs Microbiology 04/13/19 - Final, Resulted 04/13/19 - Final, Resulted 04/13/19 - Final, Resulted 04/13/19 - Preliminary, Resulted 04/13/19 - Preliminary, Resulted 04/13/19 - Preliminary, Resulted 04/13/19 Gram Stain Evaluation - Final, Resulted 04/13/19 Sputum Culture - Final, Resulted 04/13/19 Sputum Result 1 - Final, Resulted 04/10/19 Blood Culture - Final, Complete NO GROWTH AFTER 5 DAYS Medications Current Medications Apixaban (Eliquis) 5 mg BID PO Last administered on 04/19/19at 08:15; Start 04/18/19 at 21:00 Labetalol HCl (Trandate) 200 mg BID PO Last administered on 04/19/19at 11:38; Start 04/19/19 at 10:30 Lactobacillus Rhamnosus (Culturelle) 1 cap BID PO Last administered on 04/19/19at 08:15; Start 04/18/19 at 21:00 Lisinopril (Prinivil) 20 mg 1X ONCE PO Last administered on 04/18/19at 15:00; Start 04/18/19 at 13:30; Stop 04/18/19 at 13:31; Status DC Lisinopril (Prinivil) 40 mg DAILY PO Last administered on 04/19/19at 08:15; Start 04/19/19 at 09:00 Pantoprazole Sodium (Protonix) 40 mg DAILYAC PO Last administered on 04/19/19at 08:16; Start 04/19/19 at 07:30 Vitals/I & O Vital Sign - Last 24 Hours 04/18/19 04/18/19 04/18/19 04/18/19 15:00 15:00 19:20 20:06 Temp 97.9 98.0 97.9 98.0 Pulse 64 67 74 Resp 16 16 B/P (MAP) 169/81 150/79 (102) 162/80 (107) Pulse Ox 96 96 O2 Delivery Room Air Room Air Room Air 04/18/19 04/18/19 04/18/19 04/19/19 20:49 22:51 23:39 03:10 Temp 98.6 98.8 98.6 98.8 Pulse 74 63 58 74 Resp 18 18 B/P (MAP) 162/80 170/85 170/85 (113) 172/80 (110) Pulse Ox 93 95 O2 Delivery Room Air Room Air 04/19/19 04/19/19 04/19/19 04/19/19 04:53 07:15 07:50 08:15 Temp 98.1 98.1 Pulse 74 72 74 Resp 18 B/P (MAP) 172/80 171/78 (109) 171/78 Pulse Ox 95 O2 Delivery Room Air Room Air 04/19/19 04/19/19 04/19/19 04/19/19 08:15 08:16 08:17 10:40 Temp 98.1 98.1 Pulse 74 74 74 63 Resp 18 B/P (MAP) 172/80 171/78 171/78 172/85 (114) Pulse Ox 95 O2 Delivery Room Air O2 Flow Rate 1.0 04/19/19 11:38 Pulse 63 B/P (MAP) 172/85 Intake and Output 04/18/19 04/18/19 04/19/19 15:00 23:00 07:00 Intake Total 400 ml 60 ml Output Total 2800 ml 500 ml Balance -2400 ml -440 ml MATTHEW SPAIN MD Apr 19, 2019 13:24
[2019-04-19 15:00] VITALS: BP 105/61
[2019-04-19] MEDS: ACETAMINOPHEN 325 MG TABLET. PO PRN ×2 (15:29→23:12)
[2019-04-19 19:30] VITALS: BP 128/65
[2019-04-19] MEDS: ATORVASTATIN CALCIUM 10 MG TABLET. PO SCH (20:28)
[2019-04-19 23:00] VITALS: BP 154/71
[2019-04-20 03:25] VITALS: BP 159/77
[2019-04-20] MEDS: PIPERACILLIN/TAZOBACTAM 4.5 GM in IV NORMAL SALINE 100ML 100 ML IV SCH (05:30)
[2019-04-20] MEDS: PANTOPRAZOLE 40 MG TABLET.DR. PO SCH (05:30)
--- NOTE | 2019-04-20 07:04 | PDOC ---
PULMONARY PROGRESS NOTES Subjective extubated 04/14 S/P AICD on 04/15 no soa, off 02, has occ cough Vitals Vital Signs Date Time Temp Pulse Resp B/P (MAP) Pulse Ox O2 Delivery O2 Flow Rate FiO2 04/20/19 03:25 97.9 66 18 159/77 (104) 94 Room Air 97.9 04/19/19 15:00 1.0 ROS: No Nausea, No Chest Pain, No Abdominal Pain, No Increase Cough General: Alert, No acute distress Lungs: Clear Cardiovascular: Other (afib ) Abdomen: Soft, Non-tender Neuro Exam: Alert, Oriented Extremities: No Edema Skin: Warm, Dry Medications Active Scripts Medications Dose Route/Sig Max Daily Dose Days Date Category Celebrex (Celecoxib) 100 Mg Capsule 1 Cap PO BID 04/11/19 Reported Verapamil Er (Verapamil Hcl) 240 Mg Cap24h.pel 1 Cap PO DAILY 04/11/19 Reported Comments cxr reviewed 04/15 increase bilateral infiltrate c/w CHF CTA CHEST IMPRESSION: 1. No pulmonary embolus identified within the main, lobar or segmental pulmonary arteries. 2. Layering consolidative changes in the lungs bilaterally greater on the left favored to represent pulmonary edema. Superimposed infectious process is difficult to exclude. FINDINGS 1. Hemodynamics: Left ventricular end-diastolic pressure 5 mmHg. No pullback gradient across the aortic valve. 2. Left ventriculography: Normal left ventricle systolic function with ejection fraction estimated at 55%. No significant mitral regurgitation seen. 3. Coronary angiography: a. The left main coronary artery arose from the left sinus of Valsalva, gave rise to the left anterior descending and left circumflex arteries and did not show any significant stenosis. b. The left anterior descending artery showed 30% stenosis in the midsegment. The diagonal branch showed 50% stenosis in the proximal segment. c. The left circumflex artery did not show any significant stenosis. d. The right coronary artery was a large and dominant vessel arising from the right sinus of Valsalva that showed 50% stenosis in the midsegment. This was physiologically insignificant based on IFR measurement of 1.0. Conclusion 1. Nonobstructive coronary artery disease. 50% stenosis involving dominant right coronary artery that was physiologically not significant based on IFR measurement. The diagonal branch which is a small to medium caliber vessel also showed 50% proximal segment stenosis. 2. Normal left ventricle systolic function with ejection fraction estimated at 55%. Recommendations Consider AICD implantation for secondary prevention of sudden cardiac if workup for pulmonary embolism as negative Impression . IMPRESSION: 1. Acute respiratory failure due to [id number] cardiopulmonary arrest, etiology unclear. extubated, doing well 2. Status post emergent cardiac catheterization revealing normal ejection fraction, nonobstructive coronary artery disease, 50% stenosis involving the dominant right coronary artery. Normal left ventricular ejection fraction estimated at 55%. s/p AICD 3. Hypertension. 4. Recent acute bronchitis. 5. Abnormal ct chest with bilateral infiltrates 6. CXR c/w CHF, compensated. 7. afib RVR , controlled Plan . titrate fio2 to keep sats above 92 %, off , IS cardiology following --- rakel. recs--- S/P AICD on 04/15/2019 AFIB per cardiology HTN per PCP/ cardiology-- CT chest was (-) for PE replace electrolytes as needed nebs prn dc ABXS, dysphagia diet cont DVT/GI PPX much improved pulmonary status increase activity, PT ok to dc from pulm stand point discussed w RN / pt and her family SIM CERON MD Apr 20, 2019 07:04
[2019-04-20 07:19] VITALS: BP 159/76
[2019-04-20] MEDS: LISINOPRIL 20 MG TABLET PO SCH (08:01)
[2019-04-20] MEDS: AMIODARONE HCL 200 MG TABLET. PO SCH (08:01)
[2019-04-20] MEDS: LACTOBACILLUS RHAMNOSUS GG 1 CAPSULE. PO SCH ×2 (08:02→21:52)
[2019-04-20] MEDS: CHLORTHALIDONE 25 MG TABLET. PO SCH (08:02)
[2019-04-20] MEDS: amLODIPine BESYLATE 10 MG TABLET PO SCH (08:02)
[2019-04-20] MEDS: LABETALOL HCL 200 MG TABLET PO SCH ×2 (08:02→21:53)
[2019-04-20] MEDS: APIXABAN 5 MG TABLET. PO SCH ×2 (08:02→21:52)
--- NOTE | 2019-04-20 09:51 | PDOC ---
PROGRESS NOTES Chief Complaint Chief Complaint impression Status post cardiac arrest Status post cardiac cath with no flow limiting lesions evident AICD placement on 04/15/2019 Arrhythmia, patient will need AICD once more stable. Delirium, patient can be easily redirected, no focal deficits, no evidence of seizure activity on EEG History of essential hypertension History of dyslipidemia bracycardia most likely due to amiodarone Leukocytosis reactive most likely but will cover with ATB for possible aspiration pneumonia History of Present Illness History of Present Illness [id number] Patient seen and examined Her Christopher is present Chart reviewed Discussed with RN not ready for discharge, hold per cardiology Vitals Vitals Vital Signs Date Time Temp Pulse Resp B/P (MAP) Pulse Ox O2 Delivery O2 Flow Rate FiO2 04/20/19 08:02 63 159/76 04/20/19 08:00 Room Air 04/20/19 07:19 97.7 18 95 97.7 04/19/19 15:00 1.0 Physical Exam General: Alert, Oriented X3, Cooperative, No acute distress, Other (remains intubated) Heart: Regular rate, Other (tachycardic at 180 bpm) Lungs: Clear Abdomen: Normal bowel sounds Extremities: No cyanosis, No edema Skin: No rashes, No significant lesion Labs LABS Single view of the chest. 04/17/2019 9:00 AM Indication: Respiratory failure Comparison: Chest radiograph, yesterday Findings: Stable right internal jugular central line. Similar appearance of left-sided subclavian pacemaker/ICD device. Some improvement in lung aeration is noted in the interim. Small layering effusions with underlying atelectasis persist. Mild diffuse interstitial thickening is similar. IMPRESSION: Some improvement in lung aeration in the interim. Persistent small pleural effusions with underlying atelectasis and mild interstitial thickening Electronically signed by: Arthur Choi MD (04/17/2019 10:30 AM) [id number] DICTATED and SIGNED BY: ARTHUR CHOI MD DATE: 04/17/19 1030 Assessment and Plan Assessmemt and Plan Problems Medical Problems: (1) Acute respiratory acidosis Status: Acute (2) Cardiorespiratory arrest Status: Acute (3) Elevated d-dimer Status: Acute (4) Elevated troponin Status: Acute (5) Hyperglycemia Status: Acute (6) Hypokalemia Status: Acute (7) NSTEMI (non-ST elevated myocardial infarction) Status: Acute (8) Pneumonia Status: Acute (9) Sepsis Status: Acute (10) Severe sepsis Status: Acute Comment Review of Relevant I have reviewed the following items fracisco (where applicable) has been applied. Labs Microbiology 04/13/19 - Final, Resulted 04/13/19 - Final, Resulted 04/13/19 - Final, Resulted 04/13/19 - Preliminary, Resulted 04/13/19 - Preliminary, Resulted 04/13/19 - Preliminary, Resulted 04/13/19 Gram Stain Evaluation - Final, Resulted 04/13/19 Sputum Culture - Final, Resulted 04/13/19 Sputum Result 1 - Final, Resulted 04/10/19 Blood Culture - Final, Complete NO GROWTH AFTER 5 DAYS Medications Current Medications Norepinephrine Bitartrate 8 mg/ Dextrose 258 ml @ 13.855 mls/ hr 1X ONCE IV Last administered on 04/10/19at 12:40; Start 04/10/19 at 12:30; Stop 04/10/19 at 12:31; Status DC Amiodarone HCl 450 mg/Dextrose 259 ml @ 33 mls/hr 1X ONCE IV Last administered on 04/10/19at 12:55; Start 04/10/19 at 12:45; Stop 04/10/19 at 20:35; Status DC Sodium Chloride 1,000 ml @ 1,000 mls/hr Q1H IV Last administered on 04/10/19at 12:20; Start 04/10/19 at 12:13; Stop 04/10/19 at 13:12; Status DC Midazolam HCl 50 mg/Sodium Chloride 50 ml @ 1 mls/hr 1X ONCE IV Last administered on 04/10/19at 13:35; Start 04/10/19 at 13:15; Stop 04/11/19 at 13:55; Status DC Potassium Chloride/Water 100 ml @ 50 mls/hr 1X ONCE IV ; Start 04/10/19 at 13:15; Stop 04/10/19 at 13:16; Status DC Etomidate (Amidate) 20 mg STK-MED ONCE IV ; Start 04/10/19 at 13:14; Stop 04/10/19 at 13:14; Status DC Midazolam HCl (Versed) 5 mg STK-MED ONCE .ROUTE ; Start 04/10/19 at 13:15; Stop 04/10/19 at 13:15; Status DC Succinylcholine Chloride (Anectine) 200 mg STK-MED ONCE .ROUTE ; Start 04/10/19 at 13:15; Stop 04/10/19 at 13:15; Status DC Potassium Chloride/Water 100 ml @ 100 mls/hr Q1H IV ; Start 04/10/19 at 14:00; Stop 04/10/19 at 15:59; Status DC Sodium Bicarbonate (Sodium Bicarb Adult 8.4% Syr) 50 meq 1X ONCE IV Last administered on 04/10/19at 17:17; Start 04/10/19 at 13:30; Stop 04/10/19 at 13:31; Status DC Sodium Chloride 1,000 ml @ 150 mls/hr Q6H40M IV ; Start 04/10/19 at 13:28; Stop 04/11/19 at 00:46; Status DC Piperacillin Sod/ Tazobactam Sod 3.375 gm/Sodium Chloride 50 ml @ 100 mls/hr 1X ONCE IV Last administered on 04/10/19at 18:35; Start 04/10/19 at 13:45; Stop 04/10/19 at 14:14; Status DC Vancomycin HCl 250 ml @ 250 mls/hr 1X ONCE IV ; Start 04/10/19 at 13:45; Stop 04/10/19 at 14:44; Status UNV Sodium Chloride 1,000 ml @ 1,000 mls/hr 1X ONCE IV Last administered on 04/10/19at 13:45; Start 04/10/19 at 13:45; Stop 04/10/19 at 14:44; Status DC Vancomycin HCl 1.75 gm/Sodium Chloride 500 ml @ 250 mls/hr 1X ONCE IV ; Start 04/10/19 at 14:00; Stop 04/10/19 at 15:59; Status DC Iodixanol (Visipaque 320) 100 ml STK-MED ONCE .ROUTE ; Start 04/10/19 at 14:01; Stop 04/10/19 at 14:02; Status DC Heparin Sodium/ Sodium Chloride 500 ml @ As Directed STK-MED ONCE .ROUTE ; S tart 04/10/19 at 14:02; Stop 04/10/19 at 14:02; Status DC Lidocaine HCl (Xylocaine-Mpf 1% 2ml Vial) 2 ml STK-MED ONCE .ROUTE ; Start 04/10/19 at 14:02; Stop 04/10/19 at 14:02; Status DC Lidocaine HCl (Lidocaine 1% 20ml Vial) 20 ml STK-MED ONCE .ROUTE ; Start 04/10/19 at 14:03; Stop 04/10/19 at 14:04; Status DC Heparin Sodium (Porcine) (Heparin Sodium) 10,000 unit STK-MED ONCE .ROUTE ; Start 04/10/19 at 15:16; Stop 04/10/19 at 15:16; Status DC Heparin Sodium/ Sodium Chloride (HEPARIN for ARTERIAL LINE FLUSH) 1,000 unit 1X ONCE IART Last administered on 04/10/19at 15:42; Start 04/10/19 at 15:30; Stop 04/10/19 at 23:39; Status DC Iodixanol (Visipaque 320) 104 ml 1X ONCE IART Last administered on 04/10/19at 15:42; Start 04/10/19 at 15:30; Stop 04/10/19 at 23:39; Status DC Heparin Sodium (Porcine) (Heparin Sodium) 4,000 unit 1X ONCE IV Last administered on 04/10/19at 15:42; Start 04/10/19 at 15:30; Stop 04/10/19 at 23:39; Status DC Lidocaine HCl (Lidocaine 1% 20ml Vial) 20 ml 1X ONCE INJ Last administered on 04/10/19at 15:42; Start 04/10/19 at 15:30; Stop 04/10/19 at 23:39; Status DC Atropine Sulfate (ATROPINE 1mg SYRINGE) 1 mg 1X ONCE IV Last administered on 04/10/19at 12:42; Start 04/10/19 at 12:42; Stop 04/10/19 at 15:42; Status DC Midazolam HCl (Versed) 5 mg 1X ONCE IV Last administered on 04/10/19at 13:15; Start 04/10/19 at 13:15; Stop 04/10/19 at 15:42; Status DC Vecuronium [place] (Norcuron Bolus) 10 mg STK-MED ONCE IV ; Start 04/10/19 at 16:54; Stop 04/10/19 at 16:55; Status DC Fentanyl Citrate (Fentanyl 2ml Vial) 100 mcg STK-MED ONCE .ROUTE ; Start 04/10/19 at 16:55; Stop 04/10/19 at 16:56; Status DC Fentanyl Citrate (Fentanyl 2ml Vial) 100 mcg 1X ONCE IV Last administered on 04/10/19at 17:16; Start 04/10/19 at 17:00; Stop 04/10/19 at 17:01; Status DC Midazolam HCl (Versed) 2 mg 1X ONCE IV ; Start 04/10/19 at 17:00; Stop 04/10/19 at 17:01; Status DC Magnesium Sulfate/ Dextrose 100 ml @ 100 mls/hr 1X ONCE IV Last administered on 04/10/19at 17:16; Start 04/10/19 at 18:00; Stop 04/10/19 at 18:59; Status DC Buspirone HCl (Buspar) 30 mg Q8HRS NG Last administered on 04/11/19at 21:13; Start 04/10/19 at 17:00; Stop 04/12/19 at 05:17; Status DC Acetaminophen (Tylenol) 650 mg Q4H NG Last administered on 04/12/19at 00:27; Start 04/10/19 at 17:00; Stop 04/12/19 at 03:15; Status DC Artificial Tears (Artificial Tears) 1 drop Q6HRS OU Last administered on 04/12/19at 00:27; Start 04/10/19 at 18:00; Stop 04/12/19 at 05:17; Status DC Artificial Tears (Artificial Tears) 1 drop PRN Q15MIN PRN OU DRY EYE; Start 04/10/19 at 17:00 Heparin Sodium (Porcine) (Heparin Sodium) 5,000 unit BID SQ ; Start 04/10/19 at 21:00; Status Cancel Pantoprazole Sodium (PROTONIX VIAL for IV PUSH) 40 mg DAILY IVP Last administered on 04/18/19at 09:01; Start 04/10/19 at 18:00; Stop 04/18/19 at 10:47; Status DC Fentanyl Citrate 30 ml @ 0 mls/hr CONT PRN IV PER PROTOCOL. Last administered on 04/10/19at 17:30; Start 04/10/19 at 17:00; Stop 04/14/19 at 13:51; Status DC Propofol 100 ml @ 0 mls/hr CONT PRN IV PER PROTOCOL. Last administered on 04/14/19at 04:56; Start 04/10/19 at 17:00; Stop 04/14/19 at 13:51; Status DC Midazolam HCl 50 mg/Sodium Chloride 50 ml @ 0 mls/hr CONT PRN IV PER PROTOCOL. Last administered on 04/12/19at 00:27; Start 04/10/19 at 17:00; Stop 04/14/19 at 13:51; Status DC Vecuronium Farwell (Norcuron Bolus) 7 mg PRN Q1HR PRN IV SHIVERING Last administered on 04/11/19at 15:48; Start 04/10/19 at 17:00; Stop 04/14/19 at 13:51; Status DC Heparin Sodium/ Dextrose 250 ml @ 0 mls/hr CONT PRN IV PER PROTOCOL; Start 04/10/19 at 17:30; Stop 04/10/19 at 23:42; Status DC Heparin Sodium (Porcine) (Heparin Sodium) 2,150 unit PRN Q6HRS PRN IV FOR UFH LEVEL LESS THAN 0.2; Start 04/10/19 at 17:30; Stop 04/10/19 at 23:39; Status DC Heparin Sodium (Porcine) (Heparin Sodium) 1,050 unit PRN Q6HRS PRN IV FOR UFH LEVEL 0.2 - 0.29; Start 04/10/19 at 17:30; Stop 04/10/19 at 23:39; Status DC Hydralazine HCl (Apresoline Inj) 10 mg PRN Q6HRS PRN IVP ELEVATED BP, SEE COMMENTS; Start 04/10/19 at 18:00; Stop 04/14/19 at 13:00; Status DC Hydralazine HCl (Apresoline Inj) 20 mg STK-MED ONCE .ROUTE ; Start 04/10/19 at 17:56; Stop 04/10/19 at 17:56; Status DC Iohexol (Omnipaque 350 Mg/ml) 75 ml 1X ONCE IV Last administered on 04/10/19at 18:45; Start 04/10/19 at 18:45; Stop 04/10/19 at 18:46; Status DC Insulin Human Regular 100 unit/ Sodium Chloride 101 ml @ 0 mls/hr CONT PRN IV SEE I/O RECORD Last administered on 04/11/19at 10:23; Start 04/10/19 at 19:30; Stop 04/12/19 at 03:15; Status DC Magnesium Sulfate/ Dextrose 100 ml @ 100 mls/hr PRN DAILY PRN IV MAG level 2.4-3.0mg/dl Last administered on 04/11/19at 08:44; Start 04/10/19 at 20:30 Potassium Chloride/Water 100 ml @ 100 mls/hr PRN DAILY PRN IV K+ level 3.1- 3.4mEq/L Last administered on 04/11/19at 06:50; Start 04/10/19 at 20:30 Magnesium Sulfate/ Dextrose 100 ml @ 100 mls/hr 1X PRN IV MAG level 2.4- 3.0mg/dl Last administered on 04/10/19at 22:17; Start 04/10/19 at 22:00; Stop 04/11/19 at 01:56; Status DC Potassium Chloride/Water 100 ml @ 100 mls/hr 1X PRN IV K+ level 3.1-3.4mEq/L L ast administered on 04/10/19at 22:16; Start 04/10/19 at 22:00; Stop 04/11/19 at 01:55; Status DC Norepinephrine Bitartrate 8 mg/ Dextrose 258 ml @ 13.855 mls/ hr CONT PRN IV PER PROTOCOL Last administered on 04/13/19at 13:22; Start 04/10/19 at 22:45; Sto p 04/14/19 at 13:51; Status DC Heparin Sodium/ Dextrose 250 ml @ 0 mls/hr CONT PRN IV PER PROTOCOL Last administered on 04/11/19at 00:43; Start 04/10/19 at 23:45; Stop 04/11/19 at 09:36; Status DC Heparin Sodium (Porcine) (Heparin Sodium) 1,800 unit PRN Q6HRS PRN IV FOR UFH LEVEL LESS THAN 0.2; Start 04/10/19 at 23:45; Stop 04/11/19 at 09:54; Status DC Amiodarone HCl 450 mg/Dextrose 259 ml @ 0 mls/hr CONT PRN IV SEE I/O RECORD Last administered on 04/12/19at 11:52; Start 04/11/19 at 00:00; Stop 04/11/19 at 19:36; Status DC Dextrose/Sodium Chloride 1,000 ml @ 75 mls/hr [id number] IV Last administered on 04/11/19at 01:57; Start 04/11/19 at 01:00; Stop 04/11/19 at 10:53; Status DC Potassium Chloride/Water 100 ml @ 50 mls/hr PRN DAILY PRN IV K+ level less t conde 3.1 mEq/l; Start 04/11/19 at 02:00; Status Cancel Potassium Chloride/Water 100 ml @ 100 mls/hr PRN Q1HR PRN IV K<3.1; Start 04/11/19 at 02:00 Magnesium Sulfate/ Dextrose 100 ml @ 100 mls/hr PRN DAILY PRN IV MAG level 2.4-3.0mg/dl; Start 04/11/19 at 06:45; Status UNV Potassium Chloride/Water 100 ml @ 100 mls/hr PRN DAILY PRN IV K+ level 3.1- 3.4mEq/L; Start 04/11/19 at 06:45; Status UNV Atropine Sulfate (ATROPINE 0.5mg SYRINGE) 0.25 mg 1X ONCE IM ; Start 04/11/19 at 09:45; Stop 04/11/19 at 09:38; Status DC Atropine Sulfate (ATROPINE 1mg SYRINGE) 0.25 mg 1X ONCE IM Last administered on 04/11/19at 09:55; Start 04/11/19 at 09:45; Stop 04/11/19 at 09:46; Status DC Dopamine HCl/ Dextrose 250 ml @ 6.676 mls/ hr CONT PRN IV SEE I/O RECORD Last administered on 04/12/19at 20:21; Start 04/11/19 at 10:00; Stop 04/14/19 at 13:51; Status DC Sodium Chloride 1,000 ml @ 75 mls/hr [id number] IV Last administered on 04/11/19at 19:36; Start 04/11/19 at 12:00; Stop 04/13/19 at 15:18; Status DC Heparin Sodium (Porcine) (Heparin Sodium) 5,000 unit BID SQ Last administered on 04/14/19at 21:19; Start 04/11/19 at 21:00; Stop 04/15/19 at 12:18; Status DC Atropine Sulfate (ATROPINE 1mg SYRINGE) 1 mg STK-MED ONCE .ROUTE ; Start 04/10/19 at 15:16; Stop 04/11/19 at 15:16; Status DC Amiodarone HCl 450 mg/Dextrose 259 ml @ 33 mls/hr CONT PRN PRN IV SEE I/O RECORD Last administered on 04/13/19at 04:37; Start 04/12/19 at 08:15; Stop 04/14/19 at 13:51; Status DC Acetaminophen (Tylenol) 650 mg PRN Q6HRS PRN PEG MILD PAIN / TEMP Last administered on 04/13/19at 00:02; Start 04/12/19 at 11:30 Dexmedetomidine HCl 400 mcg/ Sodium Chloride 100 ml @ 0 mls/hr CONT PRN IV ANXIETY / AGITATION Last administered on 04/15/19at 05:23; Start 04/13/19 at 08:00; Stop 04/16/19 at 11:22; Status DC Piperacillin Sod/ Tazobactam Sod 4.5 gm/Sodium Chloride 100 ml @ 200 mls/hr Q6HRS IV Last administered on 04/20/19at 05:30; Start 04/13/19 at 09:00 Sodium Chloride 1,000 ml @ 75 mls/hr [id number] IV ; Start 04/13/19 at 15:30; Status Cancel Sodium Chloride 1,000 ml @ 75 mls/hr [id number] IV Last administered on 04/14/19at 05:05; Start 04/13/19 at 15:45; Stop 04/14/19 at 18:32; Status DC Haloperidol Lactate (Haldol Inj) 2 mg PRN Q6HRS PRN IVP AGITATION 3RD CHOICE Last administered on 04/16/19at 05:48; Start 04/14/19 at 10:30 Furosemide (Lasix) 40 mg 1X ONCE IVP Last administered on 04/14/19at 13:19; Start 04/14/19 at 13:00; Stop 04/14/19 at 13:01; Status DC Hydralazine HCl (Apresoline Inj) 10 mg PRN Q4HRS PRN IVP ELEVATED BP, SEE COMMENTS Last administered on 04/18/19at 22:51; Start 04/14/19 at 13:00 Atropine Sulfate (ATROPINE 1mg SYRINGE) 1 mg STK-MED ONCE .ROUTE ; Start 04/10/19 at 10:00; Stop 04/14/19 at 13:34; Status DC Calcium Chloride 1,000 mg STK-MED ONCE IV ; Start 04/10/19 at 10:00; Stop 04/14/19 at 13:34; Status DC Metoprolol Tartrate (Lopressor Vial) 5 mg Q6HRS IVP Last administered on 04/17/19at 23:24; Start 04/14/19 at 14:30; Stop 04/18/19 at 08:00; Status DC Magnesium Sulfate 50 ml @ 25 mls/hr 1X ONCE IV Last administered on 04/14/19at 15:39; Start 04/14/19 at 15:00; Stop 04/14/19 at 16:59; Status DC Potassium Chloride/Water 100 ml @ 100 mls/hr Q1H IV Last administered on 04/14/19at 16:46; Start 04/14/19 at 15:00; Stop 04/14/19 at 16:59; Status DC Amiodarone HCl 450 mg/Dextrose 259 ml @ 17 mls/hr CONT PRN IV SEE I/O RECORD Last administered on 04/15/19at 05:22; Start 04/14/19 at 15:15; Stop 04/15/19 at 05:23; Status DC Lorazepam (Ativan Inj) 0.5 mg PRN Q4HRS PRN IVP ANXIETY / AGITATION; Start 04/15/19 at 08:15 Lorazepam (Ativan Inj) 1 mg PRN Q4HRS PRN IVP ANXIETY / AGITATION Last administered on 04/15/19at 23:51; Start 04/15/19 at 08:30 Potassium Chloride/Water 100 ml @ 100 mls/hr Q1H IV Last administered on 04/15/19at 13:05; Start 04/15/19 at 09:00; Stop 04/15/19 at 10:59; Status DC Lidocaine/ Epinephrine (LIDOCAINE 2%-EPI 1:100,000 multi-dose) 20 ml 1X ONCE IJ Last administered on 04/15/19at 11:09; Start 04/15/19 at 09:00; Stop 04/15/19 at 09:06; Status DC Bacitracin 42685 unit/Sodium Chloride 250 ml @ 0 mls/hr 1X ONCE IRR Last ad ministered on 04/15/19at 11:45; Start 04/15/19 at 09:00; Stop 04/15/19 at 09:06; Status DC Cefazolin Sodium (Ancef) 1 gm 1X ONCE IVP Last administered on 04/15/19at 11:07; Start 04/15/19 at 09:00; Stop 04/15/19 at 09:06; Status DC Midazolam HCl (Versed) 2 mg STK-MED ONCE .ROUTE ; Start 04/15/19 at 09:38; Stop 04/15/19 at 09:38; Status DC Propofol 50 ml @ As Directed STK-MED ONCE IV ; Start 04/15/19 at 09:40; Stop 04/15/19 at 09:40; Status DC Furosemide (Lasix) 40 mg 1X ONCE IVP ; Start 04/15/19 at 10:15; Stop 04/15/19 at 10:16; Status DC Furosemide (Lasix) 40 mg STK-MED ONCE .ROUTE ; Start 04/15/19 at 10:03; Stop 04/15/19 at 10:03; Status DC Lidocaine/ Epinephrine (LIDOCAINE 2%-EPI 1:100,000 multi-dose) 20 ml STK-MED ONCE .ROUTE ; Start 04/15/19 at 10:08; Stop 04/15/19 at 10:09; Status DC Iohexol (Omnipaque 300 Mg/ml) 100 ml STK-MED ONCE .ROUTE ; Start 04/15/19 at 11:16; Stop 04/15/19 at 11:16; Status DC Iohexol (Omnipaque 300 Mg/ml) 10 ml 1X ONCE IART Last administered on 04/15/19at 11:17; Start 04/15/19 at 12:00; Stop 04/15/19 at 12:05; Status DC Info (CONTRAST GIVEN -- Rx MONITORING) 1 each PRN DAILY PRN MC SEE COMMENTS; Start 04/15/19 at 12:15; Stop 04/17/19 at 12:14; Status DC Info (No Anticoagulant Therapy) 1 ea CONT PRN PRN MC PER PROTOCOL; Start 04/15/19 at 12:15; Stop 04/19/19 at 07:34; Status DC Cefazolin Sodium (Ancef) 1 gm 1X ONCE IVP ; Start 04/15/19 at 12:30; Stop 04/15/19 at 12:31; Status UNV Acetaminophen (Tylenol) 650 mg PRN Q6HRS PRN PO MILD PAIN 1-3 Last administered on 04/19/19at 23:12; Start 04/15/19 at 12:15 Labetalol HCl (Normodyne Iv Push) 20 mg PRN Q2HR PRN IVP HYPERTENSION Last administered on 04/19/19at 04:53; Start 04/15/19 at 16:00 Nitroglycerin (Nitro-Bid Oint) 1 inch Q6HRS TP Last administered on 04/15/19at 17:05; Start 04/15/19 at 18:00; Stop 04/15/19 at 20:46; Status DC Nitroglycerin/ Dextrose 250 ml @ 1.5 mls/hr CONT PRN IV SEE I/O RECORD Last administered on 04/16/19at 13:12; Start 04/15/19 at 20:45; Stop 04/16/19 at 18:25; Status DC Potassium Chloride (Klor-Con) 40 meq Q2H PO ; Start 04/16/19 at 08:00; Stop 04/16/19 at 07:52; Status DC Potassium Chloride/Water 100 ml @ 100 mls/hr Q1H IV Last administered on 04/16/19at 09:18; Start 04/16/19 at 08:00; Stop 04/16/19 at 09:59; Status DC Nitroglycerin (Nitro-Bid Oint) 1 inch Q6HRS TP Last administered on 04/18/19at 06:22; Start 04/16/19 at 12:00; Stop 04/18/19 at 08:00; Status DC Nitroglycerin (Nitro-Bid Oint) 1 inch 1X ONCE TP Last administered on 04/16/19at 09:48; Start 04/16/19 at 09:45; Stop 04/16/19 at 09:46; Status DC Amiodarone HCl 150 mg/Dextrose 103 ml @ 618 mls/hr 1X ONCE IV Last administered on 04/16/19at 09:48; Start 04/16/19 at 10:00; Stop 04/16/19 at 10:09; Status DC Amiodarone HCl 450 mg/Dextrose 259 ml @ 0 mls/hr CONT PRN IV SEE I/O RECORD Last administered on 04/16/19at 23:01; Start 04/16/19 at 09:30; Stop 04/16/19 at 23:14; Status DC Potassium Chloride/Water 100 ml @ 100 mls/hr Q1H IV Last administered on 04/16/19at 13:14; Start 04/16/19 at 10:00; Stop 04/16/19 at 11:59; Status DC Aspirin (Aspirin Rectal Supp) 150 mg 1X ONCE MA Last administered on 04/16/19at 13:14; Start 04/16/19 at 10:30; Stop 04/16/19 at 10:31; Status DC Amino Acids/ Electrolytes/ Dextrose 1,000 ml @ 80 mls/hr [id number] IV Last administered on 04/18/19at 07:58; Start 04/16/19 at 16:00; Stop 04/18/19 at 16:11; Status DC Furosemide (Lasix) 40 mg 1X ONCE IVP Last administered on 04/16/19at 17:42; Start 04/16/19 at 18:00; Stop 04/16/19 at 18:01; Status DC Potassium Chloride/Water 100 ml @ 100 mls/hr 1X ONCE IV Last administered on 04/17/19at 09:06; Start 04/17/19 at 09:00; Stop 04/17/19 at 09:59; Status DC Nicardipine HCl 50 mg/Sodium Chloride 250 ml @ 100 mls/hr CONT PRN IV SEE I/O RECORD; Start 04/17/19 at 08:45; Stop 04/17/19 at 11:45; Status DC Potassium Chloride/Water 100 ml @ 100 mls/hr Q1H IV Last administered on 04/17/19at 10:58; Start 04/17/19 at 09:00; Stop 04/17/19 at 10:59; Status DC Metoprolol Tartrate (Lopressor) 50 mg BID PO Last administered on 04/19/19at 08:16; Start 04/17/19 at 11:45; Stop 04/19/19 at 10:23; Status DC Amlodipine Besylate (Norvasc) 10 mg DAILY PO Last administered on 04/20/19at 08:02; Start 04/17/19 at 11:45 Amiodarone HCl (Cordarone) 400 mg DAILY PO Last administered on 04/20/19at 08:01; Start 04/18/19 at 09:00 Potassium Bicarbonate (Potassium Effervescent Tablet) 20 meq 1X ONCE PO Last administered on 04/17/19at 12:44; Start 04/17/19 at 11:45; Stop 04/17/19 at 11:48; Status DC Hydrochlorothiazide (Microzide) 12.5 mg DAILY PO Last administered on 04/17/19at 12:12; Start 04/17/19 at 11:45; Stop 04/18/19 at 08:00; Status DC Lisinopril (Prinivil) 20 mg DAILY PO Last administered on 04/18/19at 09:01; Start 04/17/19 at 15:15; Stop 04/18/19 at 13:02; Status DC Atorvastatin Calcium (Lipitor) 10 mg QHS PO Last administered on 04/19/19at 20:28; Start 04/17/19 at 21:00 Aspirin (Ecotrin) 81 mg [id number] PO Last administered on 04/18/19at 09:02; Start 04/18/19 at 08:00; Stop 04/18/19 at 13:04; Status DC Chlorthalidone (Thalitone) 25 mg DAILY PO Last administered on 04/20/19at 08:02; Start 04/18/19 at 09:00 Lactobacillus Rhamnosus (Culturelle) 1 cap BID PO Last administered on 04/20/19at 08:02; Start 04/18/19 at 21:00 Pantoprazole Sodium (Protonix) 40 mg DAILYAC PO Last administered on 04/20/19at 05:30; Start 04/19/19 at 07:30 Apixaban (Eliquis) 5 mg BID PO Last administered on 04/20/19at 08:02; Start 04/18/19 at 21:00 Info (Anti-Coagulation Monitoring By Pharmacy) 1 each PRN DAILY PRN MC SEE COMMENTS; Start 04/18/19 at 12:30 Lisinopril (Prinivil) 40 mg DAILY PO Last administered on 04/20/19at 08:01; Start 04/19/19 at 09:00 Lisinopril (Prinivil) 20 mg 1X ONCE PO Last administered on 04/18/19at 15:00; Start 04/18/19 at 13:30; Stop 04/18/19 at 13:31; Status DC Labetalol HCl (Trandate) 200 mg BID PO Last administered on 04/20/19at 08:02; Start 04/19/19 at 10:30 Active Scripts Active Reported Atorvastatin Calcium 10 Mg Tablet 10 Mg PO HS Lisinopril 30 Mg Tablet 1 Tab PO DAILY Celebrex (Celecoxib) 100 Mg Capsule 1 Cap PO BID Verapamil Er (Verapamil Hcl) 240 Mg Cap24h.pel 1 Cap PO DAILY Vitals/I & O Vital Sign - Last 24 Hours 04/19/19 04/19/19 04/19/19 04/19/19 10:40 11:38 15:00 19:30 Temp 98.1 98.0 97.7 98.1 98.0 97.7 Pulse 63 63 63 63 Resp 18 18 18 B/P (MAP) 172/85 (114) 172/85 105/61 (76) 128/65 (86) Pulse Ox 95 95 95 O2 Delivery Room Air Room Air Room Air O2 Flow Rate 1.0 1.0 04/19/19 04/19/19 04/19/19 04/20/19 20:09 20:29 23:00 03:25 Temp 97.5 97.9 97.5 97.9 Pulse 73 68 66 Resp 18 18 B/P (MAP) 128/65 154/71 (98) 159/77 (104) Pulse Ox 93 94 O2 Delivery Room Air Room Air Room Air 04/20/19 04/20/19 04/20/19 04/20/19 07:19 08:00 08:01 08:01 Temp 97.7 97.7 Pulse 63 63 63 Resp 18 B/P (MAP) 159/76 (103) 159/76 159/76 Pulse Ox 95 O2 Delivery Room Air Room Air 04/20/19 04/20/19 08:02 08:02 Pulse 63 63 B/P (MAP) 159/76 159/76 Intake and Output 04/19/19 04/19/19 04/20/19 15:00 23:00 07:00 Intake Total 50 ml 60 ml 200 ml Output Total 1250 ml 550 ml 1400 ml Balance -1200 ml -490 ml -1200 ml JAIMIE HARO MD Apr 20, 2019 09:51
[2019-04-20 11:01] VITALS: BP 105/61
--- NOTE | 2019-04-20 11:20 | PDOC ---
PROGRESS NOTES Subjective Subjective DC held due to orthostasis Objective Objective Vital Signs Date Time Temp Pulse Resp B/P (MAP) Pulse Ox O2 Delivery O2 Flow Rate FiO2 04/20/19 11:01 97.8 67 18 105/61 (76) 97 Room Air 97.8 04/19/19 15:00 1.0 Intake and Output 04/20/19 07:00 Intake Total 310 ml Output Total 3200 ml Balance -2890 ml Intake Oral 110 ml IV Total 200 ml Output Urine Total 3200 ml # Voids 1 # Bowel Movements 3 Physical Exam Abdomen: Normal bowel sounds Heart: Other (tachycardic at 180 bpm) Extremities: No cyanosis, No edema General: Alert, Oriented X3, Cooperative, Other (remains intubated) HEENT: Atraumatic Lungs: Other (mildly decreased breath sounds) Neck: No JVD Psych/Mental Status: Other (intubated) Skin: No rashes, No significant lesion Assessment Assessment 1. 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 no further episodes on telemetry. Patient underwent successful AICD implantation for secondary prevention of sudden cardiac . Continue amiodarone for antiarrhythmic therapy. 2. Acute respiratory failure secondary to #1. Extubated 04/14, resolved 3. Accelerated HTN: Blood pressure better controlled but patient orthostatic. We will give intravenous normal saline boluses and decrease hydralazine dose to 100 mg twice daily. 4. Severe sinus bradycardia, resolved 5. PAFIB: Presently in sinus rhythm. Continue eliquis for stroke prophylaxis 6. Nontraumatic fall: fell out of bed 7. Metabolic encephalopathy: resolved 8 . Hyperlipidemia: Statins 9. AICD: S/P biotronik, dual chamber for secondary prevention of SCA. No complications. 10. Acute diastolic CHF: possibly induced by AFIB RVR. EF at 55% better compensated Follow-up with our office as scheduled. Plan Plan of Care Problems Medical Problems: (1) Acute respiratory acidosis Status: Acute (2) Cardiorespiratory arrest Status: Acute (3) Elevated d-dimer Status: Acute (4) Elevated troponin Status: Acute (5) Hyperglycemia Status: Acute (6) Hypokalemia Status: Acute (7) NSTEMI (non-ST elevated myocardial infarction) Status: Acute (8) Pneumonia Status: Acute (9) Sepsis Status: Acute (10) Severe sepsis Status: Acute Comment Review of Relevant I have reviewed the following items fracisco (where applicable) has been applied. Labs Microbiology 04/13/19 - Final, Resulted 04/13/19 - Final, Resulted 04/13/19 - Final, Resulted 04/13/19 - Preliminary, Resulted 04/13/19 - Preliminary, Resulted 04/13/19 - Preliminary, Resulted 04/13/19 Gram Stain Evaluation - Final, Resulted 04/13/19 Sputum Culture - Final, Resulted 04/13/19 Sputum Result 1 - Final, Resulted 04/10/19 Blood Culture - Final, Complete NO GROWTH AFTER 5 DAYS Medications Current Medications Sodium Chloride 250 ml @ 250 mls/hr 1X ONCE IV ; Start 04/20/19 at 11:30; Stop 04/20/19 at 12:29 Vitals/I & O Vital Sign - Last 24 Hours 04/19/19 04/19/19 04/19/19 04/19/19 11:38 15:00 19:30 20:09 Temp 98.0 97.7 98.0 97.7 Pulse 63 63 63 Resp 18 18 B/P (MAP) 172/85 105/61 (76) 128/65 (86) Pulse Ox 95 95 O2 Delivery Room Air Room Air Room Air O2 Flow Rate 1.0 04/19/19 04/19/19 04/20/19 04/20/19 20:29 23:00 03:25 07:19 Temp 97.5 97.9 97.7 97.5 97.9 97.7 Pulse 73 68 66 63 Resp 18 18 18 B/P (MAP) 128/65 154/71 (98) 159/77 (104) 159/76 (103) Pulse Ox 93 94 95 O2 Delivery Room Air Room Air Room Air 04/20/19 04/20/19 04/20/19 04/20/19 08:00 08:01 08:01 08:02 Pulse 63 63 63 B/P (MAP) 159/76 159/76 159/76 O2 Delivery Room Air 04/20/19 04/20/19 08:02 11:01 Temp 97.8 97.8 Pulse 63 67 Resp 18 B/P (MAP) 159/76 105/61 (76) Pulse Ox 97 O2 Delivery Room Air Intake and Output 04/19/19 04/19/19 04/20/19 15:00 23:00 07:00 Intake Total 50 ml 60 ml 200 ml Output Total 1250 ml 550 ml 1400 ml Balance -1200 ml -490 ml -1200 ml MATTHEW SPAIN MD Apr 20, 2019 11:20
[2019-04-20] MEDS ORDERED: IV NORMAL SALINE 250ML 250 ML IV ONE (11:30)
[2019-04-20] MEDS ORDERED: IV NORMAL SALINE 500ML BAG 500 ML IV ONE (12:45)
[2019-04-20 15:23] VITALS: BP 120/58
[2019-04-20 19:40] VITALS: BP 159/89
[2019-04-20] MEDS: ATORVASTATIN CALCIUM 10 MG TABLET. PO SCH (21:52)
--- NOTE | 2019-04-20 22:18 | RAD ---
Exam: Chest one view INDICATION: Confusion TECHNIQUE: Frontal view of the chest Comparisons: 04/17/2019 FINDINGS: AICD with leads terminating the right atrium and ventricle. The cardiomediastinal silhouette and pulmonary vessels are within normal limits. There is a trace left-sided pleural effusion which is significantly decreased when compared to the prior exam. Lungs are clear. IMPRESSION: Trace residual left-sided pleural effusion. Overall improved aeration of the lungs. Electronically signed by: Lise Newby MD (04/20/2019 10:15 PM) [id number]
[2019-04-20 22:50] VITALS: BP 126/63
[2019-04-21 02:50] VITALS: BP 134/66
[2019-04-21] MEDS: PANTOPRAZOLE 40 MG TABLET.DR. PO SCH (06:24)
[2019-04-21 07:00] VITALS: BP 158/79
--- NOTE | 2019-04-21 07:36 | PDOC ---
PULMONARY PROGRESS NOTES Subjective extubated 04/14 S/P AICD on 04/15 NOT MORE SOA Vitals Vital Signs Date Time Temp Pulse Resp B/P (MAP) Pulse Ox O2 Delivery O2 Flow Rate FiO2 04/21/19 02:50 97.7 74 18 134/66 (88) 96 Room Air 97.7 ROS: No Nausea, No Chest Pain, No Abdominal Pain, No Increase Cough General: Alert, No acute distress Lungs: Clear Cardiovascular: Other (afib ) Abdomen: Soft, Non-tender Neuro Exam: Alert, Oriented Extremities: No Edema Skin: Warm, Dry Medications Active Scripts Medications Dose Route/Sig Max Daily Dose Days Date Category Celebrex (Celecoxib) 100 Mg Capsule 1 Cap PO BID 04/11/19 Reported Verapamil Er (Verapamil Hcl) 240 Mg Cap24h.pel 1 Cap PO DAILY 04/11/19 Reported Comments cxr reviewed 04/15 increase bilateral infiltrate c/w CHF CTA CHEST IMPRESSION: 1. No pulmonary embolus identified within the main, lobar or segmental pulmonary arteries. 2. Layering consolidative changes in the lungs bilaterally greater on the left favored to represent pulmonary edema. Superimposed infectious process is difficult to exclude. FINDINGS 1. Hemodynamics: Left ventricular end-diastolic pressure 5 mmHg. No pullback gradient across the aortic valve. 2. Left ventriculography: Normal left ventricle systolic function with ejection fraction estimated at 55%. No significant mitral regurgitation seen. 3. Coronary angiography: a. The left main coronary artery arose from the left sinus of Valsalva, gave rise to the left anterior descending and left circumflex arteries and did not show any significant stenosis. b. The left anterior descending artery showed 30% stenosis in the midsegment. The diagonal branch showed 50% stenosis in the proximal segment. c. The left circumflex artery did not show any significant stenosis. d. The right coronary artery was a large and dominant vessel arising from the right sinus of Valsalva that showed 50% stenosis in the midsegment. This was physiologically insignificant based on IFR measurement of 1.0. Conclusion 1. Nonobstructive coronary artery disease. 50% stenosis involving dominant right coronary artery that was physiologically not significant based on IFR measurement. The diagonal branch which is a small to medium caliber vessel also showed 50% proximal segment stenosis. 2. Normal left ventricle systolic function with ejection fraction estimated at 55%. Recommendations Consider AICD implantation for secondary prevention of sudden cardiac if workup for pulmonary embolism as negative Impression . IMPRESSION: 1. Acute respiratory failure due to [id number] cardiopulmonary arrest, . extubated, doing well 2. Status post emergent cardiac catheterization revealing normal ejection fraction, nonobstructive coronary artery disease, 50% stenosis involving the dominant right coronary artery. Normal left ventricular ejection fraction estimated at 55%. s/p AICD 3. Hypertension. 4. Recent acute bronchitis. 5. Abnormal ct chest with bilateral infiltrates 6. CXR c/w CHF, compensated. 7. afib RVR , controlled Plan . PT RESP STATUS IS COMPENSATED WILL S/0 CALL IF NEEDED IAIN AUGUSTINE MD Apr 21, 2019 07:36
[2019-04-21] MEDS: amLODIPine BESYLATE 10 MG TABLET PO SCH (08:47)
[2019-04-21] MEDS: LISINOPRIL 20 MG TABLET PO SCH (08:48)
[2019-04-21] MEDS: LACTOBACILLUS RHAMNOSUS GG 1 CAPSULE. PO SCH (08:48)
[2019-04-21] MEDS: AMIODARONE HCL 200 MG TABLET. PO SCH (08:49)
[2019-04-21] MEDS: CHLORTHALIDONE 25 MG TABLET. PO SCH (08:49)
[2019-04-21] MEDS: APIXABAN 5 MG TABLET. PO SCH ×2 (08:49→16:33)
[2019-04-21] MEDS: LABETALOL HCL 200 MG TABLET PO SCH ×2 (08:50→16:33)
[2019-04-21 10:50] VITALS: BP 106/59
--- NOTE | 2019-04-21 11:14 | SNU/HH DC ---
DISCHARGE WITH HOME HEALTH DISCHARGE INFORMATION: Final Diagnosis: Problems Medical Problems: (1) Acute respiratory acidosis Status: Acute (2) Cardiorespiratory arrest Status: Acute (3) Elevated d-dimer Status: Acute (4) Elevated troponin Status: Acute (5) Hyperglycemia Status: Acute (6) Hypokalemia Status: Acute (7) NSTEMI (non-ST elevated myocardial infarction) Status: Acute (8) Pneumonia Status: Acute (9) Sepsis Status: Acute (10) Severe sepsis Status: Acute Condition on Discharge: Stable CODE STATUS: Code Status: Full HOME HEALTH: Face to Face: I certify this patient is under my care and that I, or a nurse practitioner or physician's assistant shift supervisor working with me, had a face to face encounter that meets the physician face to face encounter requirements with this patient on []. Medical Complications: Other (recent new defibrillator placement) Snf For: Assess & Educate Safety RN For Eval/Treatment: Yes Physical Therapy For: Evalulation/Treatment Occupational Therapy For: Evaluation/Treatment Speech Language Pathology For: Evaluation/Treatment Home Health Aide For: Self-care SURGICAL SERVICES MANAGER For: Community Resources Pt Meets Homebound Status: Unsteady balance w/ amb, POST DISCHARGE ORDERS: DIET AFTER DISCHARGE: Cardiac CERTIFICATION STATEMENT: Certification Statement: Certification Statement: Based on the above finding, I certify that this patient is confined to the home and needs intermittent correction care, physical therapy and/or speech therapy, or continues to need occupational therapy.~ This patient is under my care, and I have initiated the establishment of the plan of care.~ This patient will be followed by myself or a community physician who will periodically review the plan of care. Home Meds Reported Medications Atorvastatin Calcium (ATORVASTATIN CALCIUM) 10 Mg Tablet, 10 MG PO HS for FOR CHOLESTEROL, #30 TAB 0 Refills 04/17/19 Lisinopril (LISINOPRIL) 30 Mg Tablet, 1 TAB PO DAILY for HTN, #30 TAB 5 Refills 04/17/19 Celecoxib (CELEBREX) 100 Mg Capsule, 1 CAP PO BID for Arthritis, #60 CAP 3 Refills 04/11/19 Verapamil Hcl (VERAPAMIL ER) 240 Mg Cap24h.pel, 1 CAP PO DAILY for Hypertension, #30 CAP 5 Refills 04/11/19 MADDI QUINTEROS III DO Apr 21, 2019 11:14
--- NOTE | 2019-04-21 11:25 | PDOC ---
[facility] PROGRESS NOTE Chief Complaint Chief Complaint Status post cardiac arrest Status post cardiac cath with no flow limiting lesions evident AICD placement on 04/15/2019 Arrhythmia, patient will need AICD once more stable. Delirium, patient can be easily redirected, no focal deficits, no evidence of seizure activity on EEG History of essential hypertension History of dyslipidemia bracycardia most likely due to amiodarone Leukocytosis reactive most likely but will cover with ATB for possible aspiration pneumonia History of Present Illness History of Present Illness 04/21/19 Pt seen and examined Pt was sitting at bedside accompanied by her family She is doing well DW pt and family Pt's chart reviewed [id number] Patient seen and examined Her Christopher is present Chart reviewed Discussed with RN not ready for discharge, hold per cardiology Vitals/I&O Vitals/I&O: Vital Signs Date Time Temp Pulse Resp B/P (MAP) Pulse Ox O2 Delivery O2 Flow Rate FiO2 04/21/19 10:50 98.1 67 18 106/59 (75) 97 Room Air 98.1 I & O 04/20/19 04/20/19 04/21/19 15:00 23:00 07:00 Intake Total 120 ml 1200 ml Output Total 1100 ml Balance 120 ml 1200 ml -1100 ml Physical Exam General: Alert, Oriented X3, Cooperative, No acute distress, Other (remains intubated) Heart: Regular rate, Other (tachycardic at 180 bpm) Lungs: Clear Abdomen: Normal bowel sounds Extremities: No cyanosis, No edema Skin: No rashes, No significant lesion Review of Systems Review of Systems: no c/o SOA no c/o CP Assessment and Plan Assessmemt and Plan Problems Medical Problems: (1) Acute respiratory acidosis Status: Acute (2) Cardiorespiratory arrest Status: Acute (3) Elevated d-dimer Status: Acute (4) Elevated troponin Status: Acute (5) Hyperglycemia Status: Acute (6) Hypokalemia Status: Acute (7) NSTEMI (non-ST elevated myocardial infarction) Status: Acute (8) Pneumonia Status: Acute (9) Sepsis Status: Acute (10) Severe sepsis Status: Acute Assessment Status post cardiac arrest Status post cardiac cath with no flow limiting lesions evident AICD placement on 04/15/2019 Arrhythmia, patient will need AICD once more stable. Delirium, patient can be easily redirected, no focal deficits, no evidence of seizure activity on EEG History of essential hypertension History of dyslipidemia bracycardia most likely due to amiodarone Leukocytosis reactive most likely but will cover with ATB for possible aspiration pneumonia Plan Pulm and cardio following Continue meds per cardio and pulm Continue home meds Full code Probably d/c today pending specialists Comment Review of Relevant I have reviewed the following items fracsico (where applicable) has been applied. Medications: Current Medications Medications (Trade) Dose Ordered Sig/Tank Route PRN Reason Start Time Stop Time Status Last Admin Dose Admin Sodium Chloride 250 ml @ 250 mls/hr 1X ONCE IV 04/20/19 11:30 04/20/19 12:29 DC 04/20/19 11:22 Labetalol HCl (Trandate) 100 mg BID PO 04/20/19 21:00 04/21/19 08:50 Sodium Chloride 500 ml @ 500 mls/hr 1X ONCE IV 04/20/19 12:45 04/20/19 13:44 DC 04/20/19 12:55 MADDI QUINTEROS III DO Apr 21, 2019 11:25
--- NOTE | 2019-04-21 12:51 | NUR ---
SS following up with discharge planning. SS met with pt and pt's spouse in room to discuss discharge planning. Discharge orders received for home healthcare. Pt's family concerned with co-pays from insurance and requested that SS contact home health and run benefits and also requested that SS contacted [facility], [phone]; fax [phone], and check benefits for acute rehabilitation. Pt reported that she is still leaning toward home healthcare but wanted insurance ran so that she knows her benefits. Pt notified that home health orders have been received. SS requested that [facility] run pt's benefits and notify SS of any co-pays. SS also phoned and faxed demographics to [facility] and asked for return call regarding benefits. Case management and pt's RN notified.
--- NOTE | 2019-04-21 14:44 | PDOC ---
PROGRESS NOTES Assessment Assessment Cardiopulmonary arrest, down time estimated 8 minutes per her friend. Hypoxia/anoxia encephalopathy. Metabolic encephalopathy. VT Cardiac shock. Respiratory failure. Pulmonary edema. Pulmonary interstitial infiltrate. Lactic acidosis. Hypokalemia, K+ 2.9 Hyperglycemia, glucose 300. DM. HTN. HLD. RECOMMENDATIONS/PLAN: Treat medical and cardiac diseases. AICD placed. Discussed with patient and her at bedside on 04/21/19. HCT performed, ICH, IPH and SAH ruled out. EEG on 04/14/19: Borderline study. No seizure activity. PAST MEDICAL HISTORY Cardiovascular: HTN, Hyperlipidemia Pulmonary: No pertinent hx CENTRAL NERVOUS SYSTEM: Other (No pertinent history) GI: No pertinent hx Heme/Onc: No pertinent hx Hepatobiliary: No pertinent hx Psych: No pertinent hx Musculoskeletal: Osteoarthritis Rheumatologic: No pertinent hx Infectious disease: No pertinent hx ENT: Sincusitis Renal/: No pertinent hx Endocrine: No pertinent hx Dermatology: No pertinent hx PAST SURGICAL HISTORY Appendectomy, Hysterectomy FAMILY HISTORY Coronary Artery Disease (mother and father) SOCIAL HISTORY Smoke: No ALCOHOL: none Drugs: None Lives: with Family ALLERGIES No Known Drug Allergies (Unverified , 04/10/19) MEDICATIONS: Refer to [facility] REVIEW OF SYSTEMS: Constitutional: No malnutrition, weight loss, cachexia. Head: No traumatic brain or head injury. Skin: No edema, or rash. Ear: No infection. Eyes: No vision loss or color blindness. Nose: No bleeding or purulent discharges. Hearing: No hearing decrease. Neck: No injury. Breast: No history of cancer, masses,or discharges. Cardiac: HTN, HLD. Pulmonary: No COPD. GI: No GI ulcer, GI bleeding. Urinary/genital: No dysuria, incontinence, urinary retention. Endocrinologic: Diabetes Mellitus? Skeletomuscular: No muscular atrophy, deformity. Neurological: see HP. Psychiatric: Denies drug use/abuse. Otherwise, not -iyamj review of systems. PHYSICAL EXAMINATION: General appearance is in subacute distress. HEENT: Normocephalic and nontraumatic. Eyes, nose, ears, and throat are unremarkable. Neck is supple. No lymphadenopathy. No crepitus. Cardiovascular: S1, S2, seemed regular rate and rhythm. Pulmonary: On vent. Abdomen: Bowel sounds are weak. Extremities: No rash, lesions, or edema. NEUROLOGICAL EXAMINATION: On RA.. Oriented to time, place and person. PERRL. EOMI CN: no focal findings. Muscle tone: WNL. Muscle strength: 5 DTR: 2-3 Plantar reflex: flexor response bilaterally Gait: Able to walk. Sensory exam: no abnormal findings to stimuli. No cerebellar signs elicited. F-T-N test fine. Objective Objective Vital Signs Date Time Temp Pulse Resp B/P (MAP) Pulse Ox O2 Delivery O2 Flow Rate FiO2 04/21/19 10:50 98.1 67 18 106/59 (75) 97 Room Air 98.1 Intake and Output 04/21/19 07:00 Intake Total 1320 ml Output Total 1100 ml Balance 220 ml Intake Oral 1320 ml Output Urine Total 1100 ml # Voids 9 # Bowel Movements 3 Vitals Signs Vitals VS - Last 72 Hours, by Label Date Time Temp Pulse Resp B/P (MAP) Pulse Ox O2 Delivery O2 Flow Rate FiO2 04/21/19 10:50 98.1 67 18 106/59 (75) 97 Room Air 98.1 04/21/19 08:50 64 158/78 04/21/19 08:49 64 158/78 04/21/19 08:48 64 158/78 04/21/19 08:47 70 158/78 04/21/19 08:00 Room Air 04/21/19 07:00 98.1 64 16 158/79 (105) 96 Room Air 98.1 04/21/19 02:50 97.7 74 18 134/66 (88) 96 Room Air 97.7 04/20/19 22:50 97.9 65 20 126/63 (84) 94 Room Air 97.9 04/20/19 21:53 77 159/89 04/20/19 20:25 Room Air 04/20/19 19:40 97.7 77 18 159/89 (112) 96 Room Air 97.7 04/20/19 15:23 67 18 120/58 (78) 98 Room Air 04/20/19 11:01 97.8 67 18 105/61 (76) 97 Room Air 97.8 04/20/19 08:02 63 159/76 04/20/19 08:02 63 159/76 04/20/19 08:01 63 159/76 04/20/19 08:01 63 159/76 04/20/19 08:00 Room Air 04/20/19 07:19 97.7 63 18 159/76 (103) 95 Room Air 97.7 Laboratory Laboratory Microbiology 04/13/19 - Final, Resulted 04/13/19 - Final, Resulted 04/13/19 - Final, Resulted 04/13/19 - Preliminary, Resulted 04/13/19 - Preliminary, Resulted 04/13/19 - Preliminary, Resulted 04/13/19 Gram Stain Evaluation - Final, Resulted 04/13/19 Sputum Culture - Final, Resulted 04/13/19 Sputum Result 1 - Final, Resulted 04/10/19 Blood Culture - Final, Complete NO GROWTH AFTER 5 DAYS Medication Medications Current Medications Labetalol HCl (Trandate) 100 mg BID PO Last administered on 04/21/19at 08:50; Start 04/20/19 at 21:00 Comment Review of Relevant I have reviewed the following items fracisco (where applicable) has been applied. ADA TERRAZAS MD Apr 21, 2019 14:44
[2019-04-21 15:00] VITALS: BP 118/62
[2019-04-21] MEDS ORDERED: APIX5TAB PO (16:17)
[2019-04-21] MEDS ORDERED: LABE100T5 PO (16:18)
[2019-04-21] MEDS ORDERED: AMIO400T5 PO (16:18)
[2019-04-21] MEDS ORDERED: CHLO50TA PO (16:19)
--- NOTE | 2019-04-21 16:28 | NUR ---
SS following up with discharge planning. Pt and pt's spouse reported that they are returning to home with home healthcare with [facility]. SS phoned and faxed referral and discharge orders to [facility], ; fax [phone]. Pt's RN notified.
[2019-04-21 16:33] VITALS: BP 118/62
--- NOTE | 2019-04-21 16:48 | PDOC ---
PROGRESS NOTES Subjective Subjective Patient continues to be orthostatic. Objective Objective Vital Signs Date Time Temp Pulse Resp B/P (MAP) Pulse Ox O2 Delivery O2 Flow Rate FiO2 04/21/19 16:33 78 118/62 04/21/19 15:00 97.6 18 98 Room Air 97.6 Intake and Output 04/21/19 07:00 Intake Total 1320 ml Output Total 1100 ml Balance 220 ml Intake Oral 1320 ml Output Urine Total 1100 ml # Voids 9 # Bowel Movements 3 Physical Exam Abdomen: Normal bowel sounds Heart: Regular rate, Other (tachycardic at 180 bpm) Extremities: No cyanosis, No edema General: Alert, Oriented X3, Cooperative, No acute distress, Other (remains intubated) HEENT: Atraumatic Lungs: Other (mildly decreased breath sounds) Neck: No JVD Psych/Mental Status: Other (intubated) Skin: No rashes, No significant lesion Assessment Assessment 1. 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 no further episodes on telemetry. Patient underwent successful AICD implantation for secondary prevention of sudden cardiac . Continue amiodarone for antiarrhythmic therapy and decrease the dose to 200 mg daily.. 2. Acute respiratory failure secondary to #1. Extubated 04/14, resolved 3. Accelerated HTN: Patient continues to be orthostatic despite intravenous fluids. Stop amlodipine. Continue other medications. 4. Severe sinus bradycardia, resolved 5. PAFIB: Presently in sinus rhythm. Continue eliquis for stroke prophylaxis 6. Nontraumatic fall: fell out of bed 7. Metabolic encephalopathy: resolved 8 . Hyperlipidemia: Statins 9. AICD: S/P biotronik, dual chamber for secondary prevention of SCA. No complications. 10. Acute diastolic CHF: possibly induced by AFIB RVR. EF at 55% better compensated Plan Plan of Care Problems Medical Problems: (1) Acute respiratory acidosis Status: Acute (2) Cardiorespiratory arrest Status: Acute (3) Elevated d-dimer Status: Acute (4) Elevated troponin Status: Acute (5) Hyperglycemia Status: Acute (6) Hypokalemia Status: Acute (7) NSTEMI (non-ST elevated myocardial infarction) Status: Acute (8) Pneumonia Status: Acute (9) Sepsis Status: Acute (10) Severe sepsis Status: Acute Comment Review of Relevant I have reviewed the following items fracisco (where applicable) has been applied. Labs Microbiology 04/13/19 - Final, Resulted 04/13/19 - Final, Resulted 04/13/19 - Final, Resulted 04/13/19 - Preliminary, Resulted 04/13/19 - Preliminary, Resulted 04/13/19 - Preliminary, Resulted 04/13/19 Gram Stain Evaluation - Final, Resulted 04/13/19 Sputum Culture - Final, Resulted 04/13/19 Sputum Result 1 - Final, Resulted 04/10/19 Blood Culture - Final, Complete NO GROWTH AFTER 5 DAYS Medications Current Medications Labetalol HCl (Trandate) 100 mg BID PO Last administered on 04/21/19at 16:33; Start 04/20/19 at 21:00 Vitals/I & O Vital Sign - Last 24 Hours 04/20/19 04/20/19 04/20/19 04/20/19 19:40 20:25 21:53 22:50 Temp 97.7 97.9 97.7 97.9 Pulse 77 77 65 Resp 18 20 B/P (MAP) 159/89 (112) 159/89 126/63 (84) Pulse Ox 96 94 O2 Delivery Room Air Room Air Room Air 04/21/19 04/21/19 04/21/19 04/21/19 02:50 07:00 08:00 08:47 Temp 97.7 98.1 97.7 98.1 Pulse 74 64 70 Resp 18 16 B/P (MAP) 134/66 (88) 158/79 (105) 158/78 Pulse Ox 96 96 O2 Delivery Room Air Room Air Room Air 04/21/19 04/21/19 04/21/19 04/21/19 08:48 08:49 08:50 10:50 Temp 98.1 98.1 Pulse 64 64 64 67 Resp 18 B/P (MAP) 158/78 158/78 158/78 106/59 (75) Pulse Ox 97 O2 Delivery Room Air 04/21/19 04/21/19 15:00 16:33 Temp 97.6 97.6 Pulse 68 78 Resp 18 B/P (MAP) 118/62 (80) 118/62 Pulse Ox 98 O2 Delivery Room Air Intake and Output 04/20/19 04/20/19 04/21/19 15:00 23:00 07:00 Intake Total 120 ml 1200 ml Output Total 1100 ml Balance 120 ml 1200 ml -1100 ml MATTHEW SPAIN MD Apr 21, 2019 16:48
[2019-04-21] MEDS ORDERED: AMIODARONE HCL 200 MG TABLET. PO SCH (17:15)
== END 2019-04-21 17:30 | disposition home health service (06) | DRG 853 ==
LOC: ER 12:09 → 1 WEST ICU 12:40 → 2 SOUTH 04-16 13:23
PROVIDERS: ADMIT Internal Medicine; ATTEND Internal Medicine
PROC: 5A1945Z Respiratory Ventilation, 24-96 Consecutive Hours (ICD-10-PCS; principal; 2019-04-10)
PROC: 0BH17EZ Insertion of Endotracheal Airway into Trachea, Via Natural or Artificial Opening (ICD-10-PCS; 2019-04-10)
PROC: 4A023N7 Measurement of Cardiac Sampling and Pressure, Left Heart, Percutaneous Approach (ICD-10-PCS; 2019-04-10)
PROC: B2111ZZ Fluoroscopy of Multiple Coronary Arteries using Low Osmolar Contrast (ICD-10-PCS; 2019-04-10)
PROC: B2151ZZ Fluoroscopy of Left Heart using Low Osmolar Contrast (ICD-10-PCS; 2019-04-10)
PROC: 4A033BC Measurement of Arterial Pressure, Coronary, Percutaneous Approach (ICD-10-PCS; 2019-04-10)
PROC: 02HV33Z Insertion of Infusion Device into Superior Vena Cava, Percutaneous Approach (ICD-10-PCS; 2019-04-11)
PROC: 4A00X4Z Measurement of Central Nervous Electrical Activity, External Approach (ICD-10-PCS; 2019-04-14)
PROC: 0JH608Z Insertion of Defibrillator Generator into Chest Subcutaneous Tissue and Fascia, Open Approach (ICD-10-PCS; 2019-04-15)
PROC: 02H63KZ Insertion of Defibrillator Lead into Right Atrium, Percutaneous Approach (ICD-10-PCS; 2019-04-15)
PROC: 02HK3KZ Insertion of Defibrillator Lead into Right Ventricle, Percutaneous Approach (ICD-10-PCS; 2019-04-15)
DX: A41.9 Sepsis, unspecified organism (principal); J96.01 Acute respiratory failure with hypoxia; G93.41 Metabolic encephalopathy; I21.4 Non-ST elevation (NSTEMI) myocardial infarction; I50.31 Acute diastolic (congestive) heart failure; I46.9 Cardiac arrest, cause unspecified; J69.0 Pneumonitis due to inhalation of food and vomit; I47.2 Ventricular tachycardia; R57.9 Shock, unspecified; R65.20 Severe sepsis without septic shock; E11.65 Type 2 diabetes mellitus with hyperglycemia; E78.5 Hyperlipidemia, unspecified; E87.6 Hypokalemia; I11.0 Hypertensive heart disease with heart failure; I45.10 Unspecified right bundle-branch block; I48.0 Paroxysmal atrial fibrillation; I49.8 Other specified cardiac arrhythmias; M19.90 Unspecified osteoarthritis, unspecified site; E05.90 Thyrotoxicosis, unspecified without thyrotoxic crisis or storm; I25.10 Atherosclerotic heart disease of native coronary artery without angina pectoris; W06.XXXA Fall from bed, initial encounter; Z82.49 Family history of ischemic heart disease and other diseases of the circulatory system; Z90.710 Acquired absence of both cervix and uterus; Z90.49 Acquired absence of other specified parts of digestive tract; Y93.89 Activity, other specified; Y92.239 Unspecified place in hospital as the place of occurrence of the external cause; Y99.8 Other external cause status
CPT/HCPCS: 31500; 33249; 51702; 93458; 93571; 93641; 96365; 96368; 99291; 99292; G0269; 36415; 36600; 70450; 71045; 71275; 80047; 80048; 80053; 80061; 80307; 81001; 82310; 82550; 82805; 82962; 83036; 83605; 83690; 83735; 83880; 84100; 84443; 84484; 85007; 85025; 85027; 85379; 85520; 85610; 85730; 87040; 87070; 87205; 87804; 93005; 93306; 94002; 94003; 94760; 95816; C1713; C1721; C1769; C1887; C1892; C1895; C1898; C9113; J0282; J0360; J0461; J0690; J1265; J1630; J1644; J1815; J1940; J2060; J2250; J2543; J2704; J3010; J3475; J3480; J3490; J7030; J7040; J7050; Q9967; 92526; 92610; 97110; 97112; 97116; 97535; G0378

== ENCOUNTER → 2020-06-07 | Outpatient (CLI) | payer BC ==
[~2020-06-07] MED LIST changes: +AMIO400T5 PO; +APIX5TAB PO; +ATOR10TA60 PO; -ATROPINE 1 MG/10 ML DISP.SYRINGE. ONE; -CALCIUM CHLORIDE 1,000 MG/10 ML VIAL IV ONE; +CELE100C PO; +CHLO50TA PO; +LABE100T5 PO; +LISI30TA4 PO; +VERA240C2 PO
--- NOTE | 2020-06-07 16:43 | CARD ---
MR#: [id number] Date of Study: 06/07/2020 Ordering Physician: MATTHEW SPAIN, Referring Physician: MATTHEW SPAIN Tech: Melly Garza [facility] APPROVED REPORT EXAM: Two-dimensional and M-mode echocardiogram with Doppler and color Doppler. Other Information Quality : AverageHR: 58bpm Rhythm : NSR INDICATION ICD: Cardiomyopathy RISK FACTORS Hypertension Hyperlipidemia 2D DIMENSIONS Left Atrium(2D)3.3 (1.6-4.0cm)IVSd1.2 (0.7-1.1cm) Aortic Root(2D)2.6 (2.0-3.7cm)LVDd4.1 (3.9-5.9cm) LVOT Diameter2.0 (1.8-2.4cm)PWd1.1 (0.7-1.1cm) LVDs3.2 (2.5-4.0cm)FS (%) 23.4 % SV35.6 mlLVEF(%)47.3 (>50%) Aortic Valve AoV Peak Mychal.135.3cm/sAoV VTI28.6cm AO Peak GR.7.3mmHgLVOT Peak Mychal.98.9cm/s LVOT VTI 19.11cmAO Mean GR.4mmHg REI (VMAX)2.94pt1PQT (VTI)2.03cm2 Mitral Valve MV E Zevyefva18.6cm/sMV DECEL VGAS573go MV A Vitrxeql99.8cm/sMV DES74uu E/A Ratio0.9MVA (PHT)2.64cm2 TDI E/Lateral E'6.0E/Medial E'8.9 Pulmonary Valve PV Peak Bvtevtkm79.8cm/sPV Peak Grad.4mmHg Tricuspid Valve TR P. Gkloxsky469lk/sTR Peak Gr.22mmHg LEFT VENTRICLE The left ventricle is normal size. There is borderline to mild concentric left ventricular hypertroph y. The left ventricular systolic function is low normal. EF 50% There is mild global hypokinesis with septal motion suggestive of conduction defect. Transmitral Doppler flow pattern is Grade II-pseudono rmal filling dynamics. RIGHT VENTRICLE The right ventricle is normal size. There is normal right ventricular wall thickness. The right ventr icular systolic function is normal. ATRIA The left atrium size is normal. The right atrium size is normal. The interatrial septum is intact wit h no evidence for an atrial septal defect or patent foramen ovale as noted on 2-D or Doppler imaging. AORTIC VALVE The aortic valve is normal in structure and function. Doppler and Color Flow revealed trace aortic re gurgitation. There is no significant aortic valvular stenosis. MITRAL VALVE The mitral valve is normal in structure and function. There is no evidence of mitral valve prolapse. There is no mitral valve stenosis. Doppler and Color-flow revealed mild to moderate mitral regurgitat ion. TRICUSPID VALVE The tricuspid valve is normal in structure and function. Doppler and Color Flow revealed trace tricus pid regurgitation. Estimated PAP 25 mmHg. There is no tricuspid valve stenosis. PULMONIC VALVE Doppler and Color Flow revealed no pulmonic valvular regurgitation. There is no pulmonic valvular nicky nosis. GREAT VESSELS The aortic root is normal in size. The ascending aorta is normal in size. The IVC is normal in size a nd collapses >50% with inspiration. PERICARDIAL EFFUSION There is no evidence of significant pericardial effusion. Critical Notification Critical Value: No <Conclusion> The left ventricular systolic function is low normal. EF 50% There is mild global hypokinesis with septal motion suggestive of conduction defect. Doppler and Color-flow revealed moderate mitral regurgitation. Signed by : Alex Fung, Electronically Approved : 06/07/2020 16:43:21
== END ==
LOC: ECHO 13:47
PROVIDERS: ATTEND Internal Medicine Cardiovascular Disease
DX: I34.0 Nonrheumatic mitral (valve) insufficiency (principal); I47.2 Ventricular tachycardia; I51.7 Cardiomegaly
CPT/HCPCS: 93306

== ENCOUNTER → 2021-06-20 | Outpatient (CLI) | payer BC ==
[~2021-06-20] MED LIST changes: +REGADENOSON 0.4 MG/5 ML DISP.SYRIN. IV ONE
--- NOTE | 2021-06-20 14:03 | CARD ---
MR#: [id number] Date of Study: 06/20/2021 Ordering Physician: MATTHEW SPAIN, Referring Physician: Bridgette RÍOS: Jordin Gil [facility] APPROVED REPORT EXAM: Two-dimensional and M-mode echocardiogram with Doppler and color Doppler. Other Information Quality : FairHR: 64bpm Rhythm : NSRTechnically limited study due to body habitus. INDICATION Ventricular tachycardia Surgery/Intervention Pacemaker: 2D DIMENSIONS Left Atrium(2D)3.0 (1.6-4.0cm)IVSd1.1 (0.7-1.1cm) Aortic Root(2D)3.0 (2.0-3.7cm)LVDd4.4 (3.9-5.9cm) LVOT Diameter1.9 (1.8-2.4cm)PWd1.1 (0.7-1.1cm) LA Ofwmui26 (18-58mL)LVDs2.7 (2.5-4.0cm) FS (%) 38.0 %SV59.8 ml LVEF(%)68.4 (>50%) Aortic Valve AoV Peak Mychal.132.0cm/sAoV VTI24.6cm AO Peak GR.7.0mmHgLVOT Peak Mychal.99.0cm/s LVOT VTI 18.86cmAO Mean GR.4mmHg REI (VMAX)1.02uu3TRI (VTI)2.08cm2 Mitral Valve MV E Ojilzyie76.1cm/sMV DECEL CCAH241za MV A Uompovnk76.6cm/sMV XUY22lg E/A Ratio1.0MVA (PHT)3.15cm2 TDI E/Lateral E'9.1E/Medial E'14.4 Pulmonary Valve PV Peak Hiycxmgi39.1cm/sPV Peak Grad.3mmHg Tricuspid Valve TR P. Wkxqptaz271ol/sTR Peak Gr.22mmHg Pulmonary Vein S1 Whyxekat07.7cm/sD2 Dlywgqvm16.8cm/s LEFT VENTRICLE The left ventricle is normal size. There is normal left ventricular wall thickness. The systolic func tion is mildly impaired. EF 45% There is mild global hypokinesis. Septal motion suggestive of conduct ion defect. Transmitral Doppler flow pattern is Grade I-abnormal relaxation pattern. No left ventricl e thrombus noted on this study. There is no ventricular septal defect visualized. There is no left ve ntricular aneurysm. There is no mass noted in the left ventricle. RIGHT VENTRICLE The right ventricle is normal size. There is normal right ventricular wall thickness. The right ventr icular systolic function is normal. ATRIA The left atrium is moderately dilated. The right atrium is moderately dilated. The interatrial septum is intact with no evidence for an atrial septal defect or patent foramen ovale as noted on 2-D or Do ppler imaging. AORTIC VALVE The aortic valve is calcified but opens well. Doppler and Color Flow revealed trace aortic regurgitat ion. There is no significant aortic valvular stenosis. There is no aortic valvular vegetation. MITRAL VALVE Mitral annular calcification is moderate. There is no evidence of mitral valve prolapse. There is no mitral valve stenosis. Doppler and Color-flow revealed trace to mild mitral regurgitation. TRICUSPID VALVE The tricuspid valve is normal in structure and function. Doppler and Color Flow revealed trace to mil d tricuspid regurgitation. The PA pressure was estimated at 27 mmHg. There is no tricuspid valve prol apse or vegetation. There is no tricuspid valve stenosis. PULMONIC VALVE The pulmonic valve is not well seen. Doppler and Color Flow revealed no pulmonic valvular regurgitati on. There is no pulmonic valvular stenosis. GREAT VESSELS The aortic root is normal in size. The ascending aorta is normal in size. The pulmonary artery is nor mal. The IVC is normal in size and collapses >50% with inspiration. PERICARDIAL EFFUSION There is no pleural effusion. There is no evidence of significant pericardial effusion. Critical Notification Critical Value: No <Conclusion> The systolic function is mildly impaired. EF 45% There is mild global hypokinesis. Septal motion suggestive of conduction defect. Signed by : Alex Fung, Electronically Approved : 06/20/2021 14:02:28
--- NOTE | 2021-06-21 12:27 | RAD ---
MR#: [id number] Date of Study: 06/20/2021 Ordering Physician: MATTHEW SPAIN, Referring Physician: ZULEMA RÍOS Tech: JIM Rosado ARRT (R) (N) APPROVED REPORT Test Type: Pharmacological Stress Nurse/Tech: Nicole Dixon R.N. Test Indications: ventricular tachycardia Cardiac History: v-fib,htn,PPM Medications: See Electronic Medical Record Medical History: See Electronic Medical Record Resting ECG: SR w/ BBB, inverted T wave in leads AVR,AVL. slight ST elevation in leads V2-4 Resting Heart Rate: 65 bpm Resting Blood Pressure: 123/74mmHg Pretest Chest Pain: No chest pain Nurse/Tech Notes S1S2, lungs CTA Consent: The procedure was explained to the patient in lay terms. Informed consent was witnessed. Severiano eout was entered into [employer]. History and Stress Test performed by ADONIS Navarro Pharm. Details Pharmacologic stress testing was performed using 0.4mg per 5ml of regadenoson given intravenously ove r 7-10 seconds. Stress Symptoms SOA, dizziness POST EXERCISE Reason for Termination: Infusion complete Max HR: 87 bpm Max Blood Pressure: 122/63mmHg Blood Pressure response to exercise: Normal blood pressure response during stress. Heart Rate response to exercise: wnl Chest Pain: No. Arrhythmia: No. ST Change: No. INTERPRETATION Stress EKG Conclusion: Non-diagnostic EKG due to LBBB. Imaging Protocol IMAGE PROTOCOL: Rest Tc-99m/stress Tc-99m 1 day Rest: Stress: Viability: Radiopharm.Tc99m YkcesxfjlOm61g Sestamibi Dlbf10yDr 32mCi Img Date 06/20/2021 06/20/2021 Inj-Img Lnhv55ldf. 60min. Rest Admin Site:IV - Right AntecubitalAdministrator:JIM Rosado ARRT (R)(N) Stress Admin Site: IV - Right AntecubitalAdministrator: ADONIS Navarro STRESS DATA End Diast. Vol.81.0mlAv. Heart Rate62.0bpm End Syst. Vol.22.0mlCO Index BSA0.0L/min Myocardial Crfv761.0gEject. Nddnaxim10.0% Stress Rates Pk. Fill Rate2.58EDV/secLVtime Pk. Fill 161.87msec Pk. Empty Rate3.63ESV/secLVtime Pk. Biqvf159.94msec /3 Pk. Fill1.63EDV/sec Stress Scores Regional WT2.00Summed WT6.00 Regional WM0.00Summed WM1.00 LV Perfusion There is a mild fixed septal defect without any active ischemia. Normal LV function, EF 70% LV Perf. Quant 17 Seg. SSS2.00 17 Seg. SRS4.00 17 Seg. SDS0.00 Stress Defect Extent (% LAD)9.40Rest Defect Extent (% LAD)23.80Rev. Defect Extent (% LAD)0.00 Stress Defect Extent (% LCX) 0.00Rest Defect Extent (% LCX)0.00Rev. Defect Extent (% LCX)0.00 Stress Defect Extent (% RCA)0.00Rest Defect Extent (% RCA)0.00Rev. Defect Extent (% RCA)0.00 Stress Defect Extent (% CIRA)5.00Rest Defect Extent (% CIRA)10.70Rev. Defect Extent (% CIRA)0.00 Other Information Quality:Average Risk Assessment: Low Risk Conclusion 1. Nondiagnostic EKG due to baseline left bundle branch block 2. Fixed septal defect suggestive of artifact related to left bundle branch block. No active ischemi a 3. Normal EF of > 70% 4. Low risk study overall. Signed by : Alex Fung, Electronically Approved : 06/21/2021 12:26:44
== END ==
LOC: NM 07:52
PROVIDERS: ATTEND Internal Medicine Cardiovascular Disease
DX: I08.3 Combined rheumatic disorders of mitral, aortic and tricuspid valves (principal); I44.7 Left bundle-branch block, unspecified; I47.2 Ventricular tachycardia
CPT/HCPCS: 78452; 93017; 93306; A9500; J2785; C8929